=== PATIENT | male | born 1950 | race African-American/Black ===

== ENCOUNTER 2016-08-28 13:55 | Inpatient (IN) | payer MEDICARE ==
[~2016-08-28] VITALS: Ht 188 cm; Wt 96.3 kg
[2016-08-28] VITALS (16 sets, daily range): BP systolic 93–125; BP diastolic 47–70
[~2016-08-28 13:55] MED LIST: CALCIUM PO; DIGO0.12 PO; ECOT81TA2 PO; ELIQ2.5T PO; GABA300C3 PO; LEVA500T PO; METO50TA2 PO; NORCOTAB PO; RENATAB5 PO; TOPR50TA PO; VIT D PO
[2016-08-28] MEDS ORDERED: ONDANSETRON 4MG/2ML VIAL (J2405) IV PRN (16:30)
[2016-08-28 17:08] LABS: REASON FOR REVIEW ANEMIA / RBC MORPH
[2016-08-28 17:13] LABS: MEAN CORPUSCULAR HEMOGLOBIN 23.8 pg (27.0-33.0); WHITE BLOOD COUNT 12.8 K/mm3 (4.0-10.0)
[2016-08-28 17:14] LABS: MEAN CORPUSCULAR HGB CONC 28.7 g/dl (32.0-36.5); PLATELET COUNT, AUTOMATED 187 k/mm3 (150-450); RED CELL DISTRIBUTION WIDTH 21.2 % (11.5-14.5)
[2016-08-28 17:19] LABS: DIFF SLIDE NUMBER 296
[2016-08-28 17:24] LABS: RETIC HEMOGLOBIN CONTENT CHr 27.7 PG (24-36); RETICULOCYTE % ADVIA2120 3.61 % (0.5-1.5); RETICULOCYTE ABSOLUTE ADVIA212 74 x10(9)/L (17-77)
[2016-08-28 17:26] LABS: ERYTHROCYTE SEDIMENTATION RATE 125 mm/hr (0-20)
[2016-08-28 17:26] LABS: INR 1.87
[2016-08-28 17:27] LABS: ABG BASE EXCESS -2.8 (-2.0-2.0); ABG HCO3 21.3 MEQ/L (22.0-26.0); ABG PARTIAL PRESSURE CO2 32.8 mmHg (35.0-45.0); ABG PARTIAL PRESSURE O2 122.7 mmHg (75.0-100.0); ABG STANDARD HCO3 22.1 MEQ/L (22.0-26.0); ABG TOTAL CO2 22.3 MEQ/L (23.0-31.0)
[2016-08-28 17:28] LABS: ALBUMIN 2.2 GM/DL (3.2-5.2); ALBUMIN/GLOBULIN RATIO 0.67 (1.00-1.93); ALKALINE PHOSPHATASE 125 U/L (45-117); ALT/SGPT 202 U/L (12-78); ANION GAP 19 MEQ/L (8-16); AST/SGOT 363 U/L (15-37); BLOOD UREA NITROGEN 28 MG/DL (7-18); CALCIUM LEVEL 8.1 MG/DL (8.8-10.2); CARBON DIOXIDE LEVEL 23 MEQ/L (21-32); CHLORIDE LEVEL 97 MEQ/L (98-107); CREATININE FOR GFR 3.88 MG/DL (0.70-1.30); GLOMERULAR FILTRATION RATE 20.1 (>49); GLUCOSE, FASTING 107 MG/DL (80-110); MAGNESIUM LEVEL 2.2 MG/DL (1.8-2.4); PERCENT SATURATION 97.1 % (19.7-37.4); PHOSPHORUS LEVEL 4.2 MG/DL (2.5-4.9); SODIUM LEVEL 139 MEQ/L (136-145); TOTAL IRON BINDING CAPACITY 205 UG/DL (250-450); TOTAL PROTEIN 5.5 GM/DL (6.4-8.2)
[2016-08-28 17:41] LABS: BILIRUBIN,TOTAL 1.2 MG/DL (0.2-1.0)
[2016-08-28 17:46] LABS: FERRITIN 17496 NG/ML (26-388)
[2016-08-28 17:53] LABS: ANISOCYTOSIS 2+; BANDS 2 % (< 11); HYPOCHROMASIA 3+; NUCLEATED RED BLOOD CELL 1 % (0-0)
[2016-08-28 17:56] LABS: POLYCHROMASIA 1+
[2016-08-28 18:16] LABS: FOLATE > 24.0 NG/ML (>5.4); VITAMIN B12 LEVEL 1086 PG/ML (247-911)
--- NOTE | 2016-08-28 18:50 | REP ---
CHEST, ONE VIEW: COMPARISON: 05/22/2016 Since the last examination, a right-sided internal jugular central venous catheter has been placed, the tip of which is in the superior vena cava. There is cardiomegaly, status quo. There is a haziness throughout the pulmonary vascularity, status quo. There is pulmonary vascular redistribution and central pulmonary vascular engorgement, status quo. There are no new abnormal opacities on this portable exam. The technique utilized in obtaining the radiograph has magnified the cardiac silhouette and accentuated the interstitial markings. IMPRESSION: 1. Central venous catheter as described above. 2. Stable appearing chronic changes, consistent with edema. Signed by Pan Mcmahan DO 08/28/2016 07:18 P
[2016-08-28] MEDS: CEFTAROLINE FOSAMIL 200 MG in D5W 50 ML IV SCH (18:55)
--- NOTE | 2016-08-28 19:17 | HPE ---
DATE OF ADMISSION: 08/28/2016 PRINTER APPRENTICE: Dr. Jean-Baptiste PRIMARY CARE PROVIDER: Aylin Rea [employer] AGENT: Dr. Dela Cruz CHIEF COMPLAINT: Generalized weakness, anemia. HISTORY OF PRESENT ILLNESS: This is a 65-year-old male patient with underlying medical history of end-stage renal disease on hemodialysis Wednesday, Wednesday, Wednesday, chronic anemia, atrial fibrillation on Eliquis, cataract, hypertension, history of prostate cancer status post radiation 10 years ago, questionable congestive heart failure (CHF) history, with recent amputation of left great toe and wound that is nonhealing. The patient presented to hemodialysis today. After completion of hemodialysis with 1 liter of fluid removal, the patient does not look well from dialysis staff. Subsequently, the patient was sent to [facility]. Found to be anemic with a hemoglobin of 4.6 and lactic acid of 7. Triple-lumen central line was inserted at [facility]. The patient's transfusion was initiated, and the patient was transferred to [facility] intensive care unit (ICU). As per the patient, he reported over the past couple of weeks, he has been having dark stool but only 1-2 times a day. As per the patient, that has been normal for him. The patient baseline ambulating with a walker. Has been reporting progressively worsening weakness with mild dyspnea. Denies any chest pain, pressure, or discomfort. The patient did report that since his recent amputation of left great toe, his wound has not healed. Subsequently, he has also developed right heel ulcer that is nonhealing. The patient denies any fevers or chills. Denies any chest pain, pressure, or discomfort. Denies any nausea, vomiting, abdominal pain. PAST MEDICAL HISTORY: End-stage renal disease, on hemodialysis Wednesday, Wednesday, Wednesday. Chronic anemia. Atrial fibrillation, on anticoagulation. Cataract. Hypertension. Peripheral artery disease with nonhealing foot ulcers. History of prostate cancer, radiation 10 years ago. PAST SURGICAL HISTORY: AV fistula left arm. Cataract surgery. Left great toe amputation. SOCIAL HISTORY: The patient is a former smoker. Reported smoking 1/2 pack daily for 2-3 years in his life. The patient drinks beer on special occasions, very rarely, maybe once or twice a year. Denies any other illicit drug use. HOME MEDICATIONS: On: - [place] 5/325 tablets by mouth three times a day as needed - Eliquis 2.5 mg by mouth twice a day - aspirin 81 mg by mouth daily - digoxin 0.125 mg by mouth Wednesday, Wednesday, Wednesday after dialysis - gabapentin 300 mg by mouth nightly - metoprolol succinate 15 mg by mouth daily REVIEW OF SYSTEMS: Reported generalized weakness, lightheadedness. Denies any hearing change. Reported blurry vision from cataracts. Denies any nausea, vomiting. Denies any shortness of breath. Denies any chest pain, pressure, or discomfort. Denies any abdominal pain. Does report dark stool. Denies any diarrhea, constipation. Reported nonhealing wounds on bilateral lower extremities. Denies any depression or suicide ideation. PHYSICAL EXAMINATION: VITAL SIGNS: Temperature 97.7, pulse 61, respiration 20, blood pressure 96/47, pulse oximetry 100% on 2 liter nasal cannula. GENERAL: The patient alert and oriented times three. In no acute distress. Speech is slow, slightly stumbled, but is coherent. As per family, this is baseline for the patient. HEENT: Normocephalic, atraumatic. Dry mucous membranes. PULMONARY: Bilaterally bibasilar mild crackles. CARDIAC: Regular rate and rhythm. Normal S1, S2. ABDOMEN: Soft, nontender, nondistended. EXTREMITIES: Left lower extremity nonhealing surgical wound. No exudate or drainage. Right heel ulcers, no purulent drainage. Dressing clean, dry, and intact. dp/pt pulses threading bilateral. No significant edema bilateral lower extremities. LABORATORY: WBC 12.8, hemoglobin and hematocrit 4.8/16.8, platelets 187. Chemistry: Sodium 139, potassium 4, chloride 97, BUN 28, creatinine 3.88, lactic acid 13.1. Cardiac enzyme negative times one. ASSESSMENT AND PLAN: This is a 65-year-old male patient with underlying medical history of end-stage renal disease, peripheral artery disease, nonhealing bilateral lower extremity foot lesions, chronic anemia, atrial fibrillation on anticoagulation, cataract, hypertension, prostate cancer, admitted with severe anemia with lactic acidosis and borderline blood pressure. PROBLEMS: 1. Sepsis, possible secondary to lower extremity ulcers. C-reactive protein elevated. Consulted Dr. Dela Cruz for further wound care. Will empirically start Teflaro. Followup blood cultures. 2. Severe anemia. Fecal occult positive at [facility]. Transfused 1/2 unit, unimproved. Will transfuse 2 more units and followup hemoglobin and hematocrit every 4 hours. Holding blood pressure medications. Clear-liquid diet. Dr. Heath from gastroenterology has been consulted. Anemia workup has been sent. Protonix intravenous (IV) twice a day. If bleeding worsens, will consider giving desmopressin acetate (DDAVP). 3. End-stage renal disease. Consulted Dr. Jean-Baptiste. The patient might need additional dialysis session tomorrow, given the patient might get fluid overloaded. Dr. Jean-Baptiste is agreeable to offer additional sessions of dialysis tomorrow if necessary. In the meantime, if the patient becomes dyspneic tonight , will recommend continuous positive airway pressure (CPAP). 4. Hypertension. Holding blood pressure medication, given the patient is severely anemic. Will restart as needed. 5. Atrial fibrillation with holding anticoagulation, given the possibility of fecal occult positive gastrointestinal (GI) bleed. Withholding aspirin, as well. Holding beta blockers, given the borderline blood pressure with severe lactic acidosis. Will restart as needed. Telemetry monitoring in the meantime. The patient is currently tachycardic. 6. Severe anemia with fecal occult positive, lactic acidosis. Transfused 1/2 unit en route and will give 2 additional units. Followup hemoglobin and hematocrit. Followup blood pressures. Followup lactic acid. Monitor hemoglobin and hematocrit every [address] Heath has been consulted. Protonix twice a day. Will give DDAVP if GI bleed becomes more pronounced; but as of right now, the patient is not having lots of bowel movements, if anything once a day, as per the patient, with some melena. Will continue to follow. Transfuse as needed to keep hemoglobin above 8. 7. Sepsis. The patient hypotensive with lactic acidosis and leukocytosis, likely systemic inflammatory response syndrome (SIRS), lower extremity wound, left lower extremity. The case discussed with Dr. Dela Cruz. The patient will need a left lower extremity below-knee amputation. Dr. Burns from surgery has been consulted. Also, right heel ulcer. Wound care, as per Dr. Dela Cruz. The patient currently on Teflaro. Will followup lactic acid, C-reactive protein, and cultures. 8. Chronic anemia. Please refer to above. 9. History of prostate cancer. Outpatient followup. 10. Deep venous thrombosis (DVT) prophylaxis. Cannot give pharmacological agent, given possibility of GI bleed. Right-sided sequential compression device if tolerates. DISPOSITION: Multiple comorbidities. Poor long-term prognosis. The patient remains critical with severe lactic acidosis and severe anemia. Will attempt to fully resuscitate the patient overnight. MTDD
[2016-08-28] MEDS: SENOKOT S TAB PO SCH (21:00)
[2016-08-28] MEDS: PANTOPRAZOLE 40MG INJ (PROTONIX) (C9113) IV SCH (21:48)
[2016-08-29] VITALS (39 sets, daily range): BP systolic 101–136; BP diastolic 49–63
[2016-08-29] MEDS ORDERED: diphenhydrAMINE INJ 50MG/ML VIAL (J1200) As Ordered ONE (02:11)
[2016-08-29] MEDS ORDERED: diphenhydrAMINE INJ 50MG/ML VIAL (J1200) IV ONE (02:15)
[2016-08-29 05:35] LABS: ABG HCO3 31.9 MEQ/L (22.0-26.0); ABG PARTIAL PRESSURE CO2 41.9 mmHg (35.0-45.0); ABG PARTIAL PRESSURE O2 118.8 mmHg (75.0-100.0); ABG STANDARD HCO3 31.8 MEQ/L (22.0-26.0); ABG TOTAL CO2 33.2 MEQ/L (23.0-31.0); ABG pH (ARTERIAL) 7.499 UNITS (7.350-7.450)
[2016-08-29] MEDS: CEFTAROLINE FOSAMIL 200 MG in D5W 50 ML IV SCH ×2 (06:04→18:24)
[2016-08-29 06:39] LABS: MEAN CORPUSCULAR VOLUME 81.4 fl (80.0-96.0); RED CELL DISTRIBUTION WIDTH 20.4 % (11.5-14.5); WHITE BLOOD COUNT 11.4 K/mm3 (4.0-10.0)
[2016-08-29 06:50] LABS: INR 1.68
[2016-08-29 06:55] LABS: ALBUMIN 2.3 GM/DL (3.2-5.2); ALBUMIN/GLOBULIN RATIO 0.72 (1.00-1.93); BILIRUBIN,TOTAL 1.5 MG/DL (0.2-1.0); CALCIUM LEVEL 7.5 MG/DL (8.8-10.2); CREATININE FOR GFR 4.5 MG/DL (0.70-1.30); MAGNESIUM LEVEL 2.2 MG/DL (1.8-2.4); POTASSIUM SERUM 3.7 MEQ/L (3.5-5.1); TOTAL PROTEIN 5.5 GM/DL (6.4-8.2)
[2016-08-29 07:05] LABS: DIGOXIN LEVEL 1.8 NG/ML (0.5-2.0)
[2016-08-29] MEDS ORDERED: SODIUM CHLORIDE 0.9% INJ 10 ML SYR IV PRN (07:15)
[2016-08-29] MEDS ORDERED: SLF 3 ML SYR IV PRN (08:15)
[2016-08-29] MEDS: SENOKOT S TAB PO SCH ×2 (08:22→21:00)
[2016-08-29] MEDS: PANTOPRAZOLE 40MG INJ (PROTONIX) (C9113) IV SCH ×2 (08:22→21:55)
[2016-08-29] MEDS: METOPROLOL TART 25 MG TABLET PO SCH ×3 (08:23→21:59)
--- NOTE | 2016-08-29 10:52 | IPN ---
DATE OF EXAMINATION: 08/29/2016 OBJECTIVE: This morning, the patient tells me he is feeling so much better. He tells me that he felt very tired and weak for the last several days; and then yesterday at dialysis, his blood pressure was very low to the point that he was passing out and feeling faint. At the present time, he has no further symptoms and feels so much better. OBJECTIVE: VITAL SIGNS: Temperature 98.1, pulse 64, respiratory rate 18, blood pressure (BP) 114/56, oxygen (O2) saturation 100% on 2 liters nasal cannula. In general, he is a very pleasant -[place] male, lying in bed at a 60-degree angle. He is accompanied by his . The patient did not appear to be in any acute distress whatsoever. HEENT: Cranial nerves II-XII are grossly intact. He has moist mucous membranes. No elevation in central venous pressure. CARDIOVASCULAR EXAMINATION: S1, S2, regular. RESPIRATORY EXAMINATION: Is clear. ABDOMINAL EXAMINATION: Is benign. EXTREMITIES: His left lower extremity dressing is clean, dry, and intact. LABORATORY STUDIES: WBC 11.4 down from 12.8, hemoglobin 7.1 up from 4.8 at the time of admission after 4 units of blood, hematocrit 22.1, platelet count 146. Chemistry panel: Sodium 138, potassium 3.7, chloride 98, bicarbonate 32, BUN 37, creatinine 4.5, lactic acid this morning is 1.4 down from 13.1 yesterday, total bilirubin is slightly elevated at 1.5 up from 1.2 yesterday, AST is 1793 up from 363 yesterday, ALT is also elevated at 839 up from 202 yesterday. Cardiac enzymes, the patient has three sets of troponins, which are approximately 0.11 and 0.12 and 0.16. CRP is 10.6 this morning. B-12 and folate levels are within normal limits. He has an elevated ESR at 125. INR is 1.6 down from 1.8. IMAGING: The patient had a chest x-ray that revealed central venous catheter. ASSESSMENT AND PLAN: This is a 65-year-old man transferred from outside hospital for gastrointestinal (GI) bleed and lactic acidosis. PROBLEMS: 1. Gastrointestinal bleed. Given the patient's history of slowly progressive worsening fatigue and dark stools, I suspect that the patient has had fairly chronic GI losses. Fecal occult was positive at [facility]. He did have significant anemia. The patient received 4 units of packed red blood cells. I will give him additional [address] Heath from gastroenterology has been consulted. I anticipate this morning that he will be seeing the patient today. The patient placed on Protonix intravenous (IV) twice a day. He has had a positive response to blood. 2. Hypotension during hemodialysis. I suspect that the patient's hemoglobin is more chronic, as he was able to tolerate such a low hemoglobin. During dialysis, there was attempt to remove fluid. I suspect hemoglobin of 4.8 with fluid removal combination resulted in significant hypotension, as the patient reports. I suspect that this is why he had significant lactic acidosis, which quickly resolved with fluid resuscitation and packed red blood cells. I also suspect that the patient's elevated liver function test is secondary to shock liver (from hypotension). 3. End-stage renal disease (from hypotension). The patient being transfused. Will simply monitor. 4. Peripheral vascular disease and left lower extremity wound. The patient has been seen by Dr. Dela Cruz, who suggested the patient undergo left below-knee amputation (BKA). At the present time, I would deal more urgently with his acute blood loss anemia. Once this has been resolved and addressed, subsequently following this, we could think about below-knee amputation procedure. The patient is on ceftaroline. 5. Atrial fibrillation. The patient's Eliquis has been held secondary to likely GI losses. The patient is rate controlled on metoprolol 25 twice a day. He normally receives digoxin 0.125 mg after hemodialysis. His anticoagulation is being held, as noted. 6. Hypertension. Given that the patient was hypotensive and anemic, we are actually holding his antihypertensives. 7. Systemic inflammatory response syndrome (SIRS). The patient does meet SIRS criteria. I feel this is more likely secondary to GI bleed. He is on ceftaroline at this time, but again I do not feel that this septic foot is the predominant presumptive problem. 8. Deep venous thrombosis (DVT) prophylaxis. Sequentials and thromboembolic deterrents (TEDs). 9. End-stage renal disease. Dr. Jean-Baptiste of nephrology has been consulted. He, at this time, is not exhibiting any signs or symptoms of pulmonary edema; however, he has received a significant amount of blood and may require additional dialysis. Dr. Jean-Baptiste's help is greatly appreciated. The patient's status remains quite severely ill. Will continue to monitor him closely.
--- NOTE | 2016-08-29 12:17 | CR ---
DATE OF CONSULTATION: 08/28/2016 REASON FOR CONSULTATION: Lower extremity necrosis. Nicho Fernandez is a 65-year-old male, who is known to me, who presented as a transfer from [facility] emergency room to [facility] with sepsis and anemia. He has chronic left ulceration to his left foot. This initially started as a necrotic toe that I was seen in April this year. He had wet gangrene at the time so toe was amputated urgently. He was then referred to vascular surgery in [place] and had an angio with some ballooning performed. Unfortunately, the left toe amputation site did not heal and progressed to further necrosis. At that time, he was recommended for below knee amputation by the vascular surgeons in [place] as well as myself. He however, wanted to seek alternative treatments and was not willing to have that amputation performed at that time. He was subsequently referred to the wound care center in [place] where he had been undergoing local wound care. He had started hyperbaric oxygen treatment this week. However, after two dives, he had ear pain and drainage. The last time I saw him was approximately 1 month ago. Since then, it appears there has been further gangrenous changes to his left foot. During this time, there has also been a new ulceration to his right heel. Past medical history is significant for hypertension, for end-stage renal disease, on dialysis, peripheral vascular disease. Past surgical history to lower extremity significant for left hallux amputation. SOCIAL HISTORY: Patient does continue to smoke despite being advised not to. LABORATORIES ON ADMISSION: White blood cell count is 12.8. Hemoglobin is 4.8. Creatinine is 3.88. Lactic acid is 13.1. C-reactive protein is 9.97. LOWER EXTREMITY EXAMINATION: There is amputation site of left hallux with exposed metatarsal head. There is dried gangrene now noted to the toes 2, 3 and 4 at the site extending proximally to the dorsal left foot. There is edema noted to the left lower extremity with some mal odor. There is nonpalpable pulses to both feet. Right foot: There is noted to be a pressure ulceration to the right heel with some fibrogranular tissue to the site. ASSESSMENT: A 65-year-old male with lower extremity ulcerations, peripheral vascular disease (PVD), cellulitis. PLAN: Treatment choice is discussed with patient. At this point, I do not feel that there is any alternative treatment ultimately for his left leg other than a below knee amputation, possibly above knee if required by his blood supply. I do not recommend any foot amputations of itself. Would not plan either of these until patient's condition is improved given his significant anemia and lactic acid. At this time, would agree with plan of antibiotics and local wound care to the right heel. Recommend offloading boot. Patient's prognosis is poor given multiple comorbidities.
[2016-08-29] MEDS ORDERED: KCL 20MEQ IN 100ML SWI (KRUN) 20 MEQ in APPROPRIATE DILUENT 1 EA IV ONE ×2 (14:00)
[2016-08-29] MEDS: SLF 3 ML SYR IV SCH ×2 (14:06→21:55)
[2016-08-29] MEDS: SODIUM CHLORIDE 0.9% INJ 10 ML SYR IV SCH ×2 (14:07→21:55)
[2016-08-29 15:04] LABS: MAGNESIUM LEVEL 2.1 MG/DL (1.8-2.4)
--- NOTE | 2016-08-29 16:37 | CR ---
DATE OF CONSULTATION: 08/29/2016 STATUS OF PATIENT: Inpatient. REQUESTING PHYSICIAN: Hospitalist service, Dr. Fajardo. REASON FOR CONSULTATION: Profound anemia, melena. HISTORY OF PRESENT ILLNESS: Mr. Fernandez is a 65-year-old gentleman with a history of chronic anemia due to renal disease with a hemoglobin in the 8-9 range. He has a long history of vascular complications from diabetes, including a gangrenous foot for which he is being treated with hyperbaric oxygen. He has also been evaluated by podiatry. The patient presents with progressive weakness and fatigue during hemodialysis. He was found to have a hemoglobin of 4.5. The patient does note some black stools every once in a while. However, no devendra rectal bleeding. No hematemesis. He does not have any abdominal pain, nausea or vomiting. The patient was transfused and stabilized with packed red blood cells (RBCs). Due to intermittent hypotension, he is being managed in the intensive care unit (ICU); however, I do see that his vital signs have markedly improved. The patient is taking Eliquis and the last dose was on 08/27. PAST MEDICAL HISTORY: 1. End-stage renal disease on hemodialysis. 2. Peripheral vascular disease with nonhealing foot ulcers. 3. Prostate cancer with radiation 10 years ago. 4. Atrial fibrillation. PAST SURGICAL HISTORY: Arteriovenous (AV) fistula, cataract surgery, and left toe amputation. SOCIAL HISTORY: Negative for tobacco. Negative for alcohol. MEDICATIONS AT HOME: - Eliquis, last dose 08/27 - aspirin - digoxin - gabapentin - metoprolol FAMILY HISTORY: Negative for colorectal carcinoma, inflammatory bowel disease. REVIEW OF SYSTEMS: GENERAL: Negative for night sweats, fevers or chills. Positive for generalized weakness and lightheadedness. PULMONARY: Negative for hemoptysis or pleuritic-type chest pain. CARDIAC: Negative for orthopnea or dyspnea on exertion. GASTROINTESTINAL (GI): As per history of present illness (HPI). GENITOURINARY: Negative for hematuria, dysuria. PHYSICAL EXAMINATION: VITAL SIGNS: Temperature 97.7, pulse is 86 and regular, respirations of 20, blood pressure on presentation was 96/47, but presently is 118/88. GENERAL: He is awake, alert and oriented times three in no acute distress. He is nontoxic in appearance at present. HEENT: Notable for mucosal pallor. NECK: Supple. No lymphadenopathy or thyromegaly. CHEST: Clear bilaterally. HEART: Regular rate, rhythm, S1, S2. No murmurs. ABDOMEN: Obese, soft, nontender. Good bowel sounds. EXTREMITIES: Both feet have dressings present. I did not remove. Do not appreciate any significant pedal edema. IMPRESSION: 1. Severe anemia. 2. Melena. 3. Abnormal liver enzymes. 4. Sepsis. 5. Eliquis, last dose 08/27. RECOMMENDATIONS: Despite the lack of overt GI symptoms and the lack of devendra hemorrhage from the GI tract, he did have occasional "black stool" and he was hypotensive, and certainly we should go ahead and proceed with endoscopic evaluation. His hemodynamics have been stabilized overnight with packed RBCs and IV fluids. He is no longer hypotensive; therefore, we will go ahead this morning and proceed with urgent endoscopy to delineate source for bleeding. I have discussed the slightly positive troponins with cardiology, Dr. Gale, who believes that the troponins are related to his chronic renal disease and hypotension episodes and should not interfere with or need to evaluate his acute on chronic anemia and potential GI bleeding. MARIA ALEJANDRA
--- NOTE | 2016-08-29 18:00 | ROOR ---
Patient Name: Nicho Fernandez Procedure Date: 08/29/2016 4:48 PM Date of : 1950 Age: 65 Gender: Male Note Status: Finalized Procedure: Upper GI endoscopy Indications: Acute post hemorrhagic anemia Providers: Oleksandr HEATH MD Referring MD: 2. Inpatient 2. Inpatient Requesting Provider: Medicines: Monitored Anesthesia Care Complications: No immediate complications. Procedure: Pre-Anesthesia Assessment: - The heart rate, respiratory rate, oxygen saturations, blood pressure, adequacy of pulmonary ventilation, and response to care were monitored throughout the procedure. The Endoscope was introduced through the mouth, and advanced to the second part of duodenum. The upper GI endoscopy was accomplished without difficulty. The patient tolerated the procedure well. Findings: The examined esophagus was normal. A single 8 mm semi-sessile polyp with no bleeding and stigmata of recent bleeding was found in the prepyloric region of the stomach. This was biopsied with a cold forceps for histology. The exam of the stomach was otherwise normal. The examined duodenum was normal. Impression: - Normal esophagus. - A single 8 mm erythematous erythematous gastric polyp. Not removed, as eliquis on board, This was only biopsied. - Normal examined duodenum. Recommendation: - I am a bit dubious of the gastric polyp as sole cause for his melena/anemia. I think it should be removed, but he will also need colonoscopy to r/o other cause for GIB. - (last eliquis dose 08/27. will wait another 2 days before gastric polypectomy/colonoscopy)--plan for repeat EGD/and colonoscopy on 08/31). Oleksandr Heath MD Oleksandr HEATH MD 08/29/2016 5:59:52 PM This report has been signed electronically. Number of Addenda: 0 Note Initiated On: 08/29/2016 4:48 PM Estimated Blood Loss: Estimated blood loss: none.
[2016-08-29] MEDS ORDERED: MOM 30ML SUSPENSION UDC PO ONE (19:00)
--- NOTE | 2016-08-29 20:02 | ECGEPIP ---
Stationary ECG Study [facility] Test Date: 2016-08-29 Pat Name: CATHI SEBASTIAN Department: Room: [place] [address] Gender: M Client Account Representative: ESTEPHANIA : 1950 Requested By: YARA WILD Order Number: [id number] Reading MD: Dino Gale Measurements Intervals [place] Rate: 59 P: -83 VT: 125 QRS: -48 QRSD: 133 T: 144 QT: 481 QTc: 478 Interpretive Statements Ectopic atrial bradyarrhythmia. Marked left axis deviation - left anterior hemiblock. Incomplete LBBB. Prominent inferolateral ST/T-wave abnormalities Rhythm converted from atrial fibrillation 05/22/16 Electronically Signed On 08-29-2016 20:01:40 EDT by Dino Gale
--- NOTE | 2016-08-29 20:27 | REP ---
ABDOMINAL ULTRASOUND: Reason: Acute hepatitis. There are no priors for comparison. The technologist has made note on the worksheet that the examination is markedly limited due to the patient's inability to sustain respirations and a large amount of intestinal gas. In addition, the examination was done portable within the intensive care unit. This markedly limited complete abdominal ultrasound examination shows a micronodular surface to the hepatic parenchyma and a large gallbladder with a thickened wall, but there is no pericholecystic edema or evidence of biliary dilatation. The common bile duct measures between 4 and 5 mm. The pancreas was not visualized. Splenomegaly is present with a volumetric index calculation of 1385. The maximal splenic dimension is 15 cm. Very limited evaluation of each kidney shows them to have very poor cortical medullary differentiation and a markedly thinned renal cortex, but no evidence of hydronephrosis. Accurate renal measurements could not be obtained by this exam. No free fluid is present within the abdomen. IMPRESSION: 1. Evidence of cirrhosis of the liver. 2. Enlarged gallbladder with an abnormally thickened wall, but no sonographic evidence of pericholecystic edema and the technologist did not indicate a positive sonographic Ball's sign. Chronic acalculous cholecystitis should be evaluated for clinically. 3. Splenomegaly. 4. Chronic bilateral renal changes. Consider noncontrast enhanced CT for further evaluation if clinically relevant. HEPATIC DOPPLER EXAM: There is normal hepatopedal flow in the portal veins and there is normal hepatofugal flow in the hepatic veins. No elevated velocities are present. The examination is markedly limited to the patient's inability to sustain respirations for the exam which is particularly important when obtaining venous velocities and waveform analysis. In addition, the examination was obtained portably. IMPRESSION: Markedly limited exam. Signed by Pan Mcmahan DO 08/30/2016 02:04 P
[2016-08-30] VITALS (19 sets, daily range): BP systolic 100–119; BP diastolic 49–67
[2016-08-30] MEDS: CEFTAROLINE FOSAMIL 200 MG in D5W 50 ML IV SCH ×2 (06:11→18:40)
[2016-08-30] MEDS: SLF 3 ML SYR IV SCH ×3 (06:11→22:00)
[2016-08-30] MEDS: SODIUM CHLORIDE 0.9% INJ 10 ML SYR IV SCH ×3 (06:12→20:45)
[2016-08-30 06:23] LABS: INR 1.38
[2016-08-30 06:26] LABS: MEAN CORPUSCULAR HGB CONC 31.7 g/dl (32.0-36.5); MEAN CORPUSCULAR VOLUME 85.1 fl (80.0-96.0); RED CELL DISTRIBUTION WIDTH 19.7 % (11.5-14.5); WHITE BLOOD COUNT 9.4 K/mm3 (4.0-10.0)
[2016-08-30 06:57] LABS: ALBUMIN 2.3 GM/DL (3.2-5.2); ALBUMIN/GLOBULIN RATIO 0.68 (1.00-1.93); BILIRUBIN,TOTAL 1.1 MG/DL (0.2-1.0); CALCIUM LEVEL 7.9 MG/DL (8.8-10.2); CREATININE FOR GFR 6.36 MG/DL (0.70-1.30); DIGOXIN LEVEL 1.7 NG/ML (0.5-2.0); GLOMERULAR FILTRATION RATE 11.4 (>49); MAGNESIUM LEVEL 2.4 MG/DL (1.8-2.4); POTASSIUM SERUM 3.5 MEQ/L (3.5-5.1); TOTAL PROTEIN 5.7 GM/DL (6.4-8.2)
[2016-08-30] MEDS ORDERED: POTASSIUM CHLORIDE 10 MEQ SR TABLET PO ONE (08:30)
[2016-08-30] MEDS: SENOKOT S TAB PO SCH ×2 (09:00→20:44)
[2016-08-30] MEDS: PANTOPRAZOLE 20 MG TAB PO SCH (09:00)
--- NOTE | 2016-08-30 09:03 | IPN ---
DATE: 08/30/2016 SUBJECTIVE: Today the patient reports that he is feeling well. He has a little bit of cough following his endoscopy, but otherwise has no specific complaints. No chest pain, shortness of breath. No fevers, chills, lightheadedness, or feeling like he is going to pass out. No diarrhea or dark-colored stools. OBJECTIVE: VITAL SIGNS: Temperature 97.4, pulse 53, respiratory rate 20, blood pressure 108/53, oxygen saturation 93% on room air. GENERAL: He is a very pleasant, -Martiniquais male laying in bed on his left side. He is accompanied by his . The patient does not appear to be in any acute distress. HEENT: He has a central venous catheter in his right internal jugular (IJ). He has moist mucous membranes. Difficult to assess for any elevation of central venous pressure. CARDIOVASCULAR: S1, S2. He is not tachycardic. RESPIRATORY EXAM: Fairly clear. ABDOMEN: Benign. EXTREMITIES: He has a fistula in his left arm; failed fistula in the right arm. No clubbing, cyanosis. Left lower extremity bandage is clean, dry, and intact. LABORATORY STUDIES: WBC 9.4, hemoglobin 8.5, stable, hematocrit 26.8, platelet count 140. Chemistry panel: Sodium 139, potassium 3.5, repleted with 20, chloride 99, bicarbonate 31, BUN 47, creatinine 6.3. Magnesium level is 2.4. AST is down to 885, down from 1793 yesterday. ALT is down to 805, down from 839. Cardiac enzymes are 0.16 today. CRP is 10, stable from yesterday essentially. Folate and B12 levels are essentially unremarkable. INR today is 1.3, down from 1.6. Microbiology is thus far negative. Patient received a total of six units of PRBCs during this stay. Ultrasound of the liver did reveal evidence of cirrhosis of the liver, but normal hepatopetal flow in the portal veins and normal hepatofugal flow in the hepatic veins. ASSESSMENT AND PLAN: Patient is a 65-year-old man transferred from outside hospital for gastrointestinal (GI) bleed and lactic acidosis. 1. GI bleed. Patient did have an upper endoscopy yesterday which revealed a gastric polyp which was biopsied, but not removed secondary to the patient's recent anticoagulation. Dr. Heath's help was greatly appreciated. The plan is to proceed with colonoscopy tomorrow as well as repeat endoscopy for polyp removal. At this time, I will decrease his proton pump inhibitor (PPI) from 40 IV twice a day to 20 daily as GI prophylaxis. His hemoglobin and hematocrit has responded appropriately to blood and he is stable. He has not had any further tarry stools. I suspect that this bleeding may have spontaneously resolved. 2. Hypertension during hemodialysis. I suspect that the patient's low hemoglobin and fluid removed during hemodialysis combined to perform a brief period of hypotension that the patient was noted to have at dialysis. The patient did have a significant lactic acidosis which resolved with fluid resuscitation and blood as well as the patient appears to be having some shocked liver which also appears to be resolving. 3. End-stage renal disease. Dr. Jean-Baptiste is following the patient. His help is greatly appreciated. He is to continue with regularly scheduled hemodialysis Wednesday, Wednesday, and Wednesday. He did not appear to have any acute indication for hemodialysis at this time. 4. Eleven beats of nonsustained ventricular tachycardia. I have ordered an echocardiogram to evaluate the patient's ejection fraction. We will also optimize the potassium and magnesium. He is on a beta ross. I will continue to monitor him in the progressive care unit. I feel as though he can be downgraded from the medical intensive care unit status. 5. Atrial fibrillation. His Eliquis has been held secondary to likely GI loss. The patient also informed me that he has had suspected bleeding in his right ear as well while being on Eliquis. Patient is rate controlled with metoprolol, which is being held for blood pressure parameters. He also receives digoxin after hemodialysis days. Heart rate is controlled. 6. Hypertension. He is actually hypotension and so his antihypertensives are being held. 7. Systemic inflammatory response syndrome, likely secondary to GI bleed with elevated lactic acid. He does technically meet criteria for severe sepsis secondary to left lower extremity wound. He is currently on ceftaroline. Dr. Dela Cruz's help is greatly appreciated. He has been recommended for potential below the knee amputation (BKA) versus above the knee amputation (AKA) once his acute bleed has resolved. 8. Deep vein thrombosis (DVT) prophylaxis. Sequential and thromboembolic devices (TEDS). 9. Gastrointestinal (GI) prophylaxis. Protonix. We will continue to follow this patient closely. His clinical status does appear to be improving.
[2016-08-30] MEDS: METOPROLOL TART 25 MG TABLET PO SCH ×2 (09:33→20:41)
--- NOTE | 2016-08-30 10:07 | CR ---
DATE OF CONSULTATION: 08/29/2016 Nephrology consultation for Autumn Fajardo MD. Reason for consultation is severe anemia and end-stage renal disease. HISTORY OF PRESENT ILLNESS: Mr. Fernandez is a 65-year-old gentleman with multiple chronic medical problems including a history of diabetes, peripheral vascular disease, hypertension, atrial fibrillation and end-stage renal disease. He underwent amputation of his left big toe a few months ago; however, wound has not healed. He continues to have infection and has been treated with antibiotics multiple times by his marine architect. He is dialyzed on Wednesday, Wednesday and Wednesday schedule in [place] dialysis facility. He underwent hemodialysis yesterday and after dialysis he was very weak and confused. He was sent to the emergency room at [facility] where his labs showed a hemoglobin of only 4.4. Patient was transferred to [facility] due to need for inpatient dialysis and he is admitted to intensive care unit. PAST MEDICAL AND SURGICAL HISTORY: Significant for: 1. History of diabetes. 2. Atrial fibrillation. 3. Hypertension. 4. Peripheral vascular disease. 5. History of hyperlipidemia. 6. Severe anemia. 7. End-stage renal disease. 8. History of prostate cancer, status post radiation therapy. Past surgical history is significant for AV fistula in left arm, cataract surgery and left great toe amputation. MEDICATIONS: His home medications include: - Coventry 1 tablet three times a day for pain - Eliquis 2.5 mg twice a day - aspirin 81 mg daily - digoxin 0.125 mg three times a week - gabapentin 300 mg at bedtime - Levaquin 500 mg daily - metoprolol XL 50 mg daily - Meggan-Keely 1 tablet daily - calcium with vitamin D 1 tablet daily ALLERGIES: The patient has allergy to PENICILLIN. PERSONAL AND SOCIAL HISTORY: Patient is and lives with his . He does not smoke or drink. FAMILY HISTORY: There is no family history for kidney disease or premature coronary artery disease. REVIEW OF SYSTEMS: Patient is a poor historian. His is present in the room. Apparently, patient had some rectal bleeding even prior to this admission. However, he never reported it to dialysis staff or his physician. He denies any fever or chills. There is no history of weight loss. Ears, nose and throat are unremarkable. Cardiovascular system is negative for chest pain. He does feel short of breath. Respiratory system is negative for cough or hemoptysis. Gastrointestinal (GI) system is significant for rectal bleeding. There is no history of abdominal pain or black colored stools. He denies any vomiting or nausea. Genitourinary () system is negative for dysuria or hematuria. Musculoskeletal system is significant for left foot osteomyelitis following amputation of his left big toe. Psychosocial system is negative for depression or anxiety. Neurological system is negative for seizures or strokes. Hematology system is significant for chronic anticoagulation. Other systems are reviewed and are unremarkable. PHYSICAL EXAM: Patient is awake and alert and at his baseline mentation. Temperature 97.2 degrees Fahrenheit, heart rate 60 per minute and respiratory rate 18 per minute. Blood pressure 118/58 mmHg and oxygen saturation 100% on 2 liters oxygen. Patient has a central line in place and is receiving a blood transfusion at the time of my visit. His neck veins are mildly distended. There is no thyroid enlargement and no abnormal cervical lymph nodes. Ears, nose and throat are unremarkable. Heart exam reveals irregular rhythm. There is no pericardial friction rub. Lungs have good bilateral air entry. There is no wheezing or rales. Abdomen is soft and nontender. Bowel sounds are normal and there is no palpable organomegaly. Extremities have no cyanosis or clubbing. Skin has no rash or ulcers. Left arm AV fistula is patent. Neurologically, he has no focal deficit. Left foot is wrapped in dressing. LABORATORY DATA: WBC count 12.8, hemoglobin 4.8 and hematocrit 16.8. Platelets 187. Sodium 138 and potassium 3.7. BUN 37 and creatinine 4.5. A lactic acid level was 6.1 and calcium 7.5. Troponin 0.12, 0.16 and 0.17 respectively. AST is 1793 and ALT 839. PROBLEMS: 1. Acute blood loss anemia. Patient has rectal bleeding with acute blood loss anemia. He has so far received 5 units of packed RBCs. His hemoglobin and hematocrit need to be checked every few hours. A colonoscopy is indicated. 2. Left foot osteomyelitis in the setting of peripheral vascular disease. Patient is followed by Dr. Dela Cruz, who has recommended left [id number] amputation. IV antibiotics are being administered. 3. End-stage renal disease. Patient was dialyzed yesterday. At present, his volume status is still reasonable and electrolytes are within normal range. There is no emergent indication for dialysis today. He will be monitored closely on daily basis. We will schedule him for dialysis on Wednesday; however, he can be dialyzed sooner if needed. I thank you for involving me in the care of Mr. Fernandez. I will follow him along with you.
--- NOTE | 2016-08-30 14:34 | IPN ---
DATE: 08/30/2016 The patient is seen and examined at bedside. He states he is feeling a little bit better this morning. He denies overnight complaints. VITAL SIGNS: This morning, afebrile overnight. Blood pressure is 117/57. LABORATORY DATA: Reviewed. Hemoglobin is improved to 8.5 this morning. PHYSICAL EXAMINATION: Lower extremity examination, left foot deferred. Right heel shows wound with some fibrous tissue to the right plantar heel. No erythema. No foul odor. ASSESSMENT: A 65-year-old male with pressure ulcer, stage III, right heel and gangrene to left foot and leg with peripheral vascular disease, likely cellulitis. PLAN: Continue empiric antibiotics at this time. The patient is to have general surgery consultation for possible below-knee amputation once stabilized. He does have plan for endoscopy to evaluate for bleeding early this week. Wound care, continue Betadine dressing daily to left foot with gauze, right foot continue antibiotic ointment with offloading heel foam boot, change daily.
--- NOTE | 2016-08-30 16:58 | IPN ---
DATE: 08/30/2016 Mr. Fernandez is seen this morning on his bedside in intensive care unit. He was admitted with rectal bleeding and severe anemia. He has received a total of 6 units of packed RBCs so far. Patient denies any dyspnea or chest pain. There is no nausea or vomiting. He reports that he did have a bowel movement this morning and there was no visible blood. On physical exam, patient is awake and alert and at his baseline mentation. Temperature 98 degrees Fahrenheit, heart rate 64 per minute and respiratory rate 20 per minute. Blood pressure 112/54 mmHg and oxygen saturation 94% on room air. He has a central line in right internal jugular vein. There is no oral thrush or ulcers and mucous membranes are moist and healthy. Pupils are equal and reactive to light and sclera is anicteric. Ears, nose and throat are unremarkable. Heart exam is regular with systolic murmur grade 2/6. Lungs have few basilar crackles. Abdomen soft and nontender. Bowel sounds are normal and there is no palpable organomegaly. Extremities have no cyanosis or clubbing. Left foot is wrapped in dressing. Left arm AV fistula is patent. Today's labs show hemoglobin 8.5 and hematocrit 26.8. Platelets are 140 and WBC count 9.4. Sodium 139 and potassium 3.5. BUN 47 and creatinine 6.36. AST is down to 885, ALT 805 and alkaline phosphatase 122. C-reactive protein is 10.3. PROBLEMS: 1. Severe anemia most likely related to lower gastrointestinal (GI) bleed. Anemia has improved with 6 units of packed RBCs and his hematocrit has been stable since yesterday. We will continue to monitor closely. He is not on any anticoagulation at present. 2. Patient has already had upper endoscopy, which did not show any evidence of acute bleed. Colonoscopy is needed at present. 3. End-stage renal disease. Patient is regularly dialyzed on Wednesday, Wednesday and Wednesday schedule. His dialysis is due tomorrow. 4. Left foot gangrene and osteomyelitis. Dr. Dela Cruz has felt that the patient is going to require [id number] amputation or probably [id number] amputation due to his severe vascular disease. At present, he is not medically stable for surgery. Once he is stable medically, then probably an amputation will be scheduled during this hospitalization or later on.
[2016-08-30] MEDS ORDERED: GOLYTELY SOLN 4000 ML BTL PO ONE (17:00)
--- NOTE | 2016-08-30 21:06 | ECHO ---
DATE OF PROCEDURE: AGE: 65 GENDER: Male HEIGHT: 74 inches WEIGHT: 219 pounds BODY SURFACE AREA: 2.26 sq m PATIENT LOCATION: Inpatient, PCU. REFERRING PHYSICIAN: Dr. Fajardo INDICATION: Abnormal EKG. 2-D MEASUREMENTS: RV: 5.4 cm LV: 5.4 cm Septum: 1.4 cm Posterior wall: 1.4 cm Aortic root: 3.4 cm LA: 4.8 Ascending aorta: 3.8 cm LVEF: 75% DOPPLER MEASUREMENTS: AV: 3.5 m/s LVOT: 1.8 m/s LVOT diameter: 2.3 cm Mean AV systolic gradient: 27 mmHg MV-E: 200, A: 75, EA ratio: 2.7:1 Early mitral deceleration time: 183 ms E prime: 5.6, A prime: 4.5, E/E prime ratio: 36 PV: 1.2 m/s Pulmonary artery acceleration time: 88 ms RVSP: 109 mmHg IVC: 2.8 cm COMMENTS: Normal sinus rhythm/sinus bradycardia. Moderately dilated left atrium but normal left ventricular size. Prominently dilated right ventricle and right atrium with prominently dilated inferior vena cava (IVC). Left ventricle (LV) wall thickness was moderately increased symmetrically on real-time imaging from the parasternal and apical projections. There appears to be a localized septal wall motion abnormality, but other sheridan moved normally or were hyperkinetic. Slight thickening of the mitral annulus, but normal leaflet thickness and excursion with no posterior systolic buckling. Three equal sized aortic cusps with moderately thick cusp edges and a degree of reduced cusp separation. Normal aortic root diameter, but at least mildly dilated proximal ascending aorta. No apparent intracardiac mass or pericardial effusion. Color flow Doppler study taken from the parasternal and apical projection showed moderate eccentric aortic insufficiency, moderate mitral insufficiency and severe tricuspid insufficiency. Guided continuous wave Doppler of his aortic valve and pulsed Doppler study of his LV outflow tract taken from the apical long axis and five chamber projection showed an increased peak systolic velocity, but also increased left ventricle outflow tract velocity with an elevated mean transvalvular systolic gradient and dimensionless index of 0.5 - the latter would be against any significant degree of aortic stenosis. Pulsed and continuous wave Doppler taken from the apical four-chamber projection showed normal peak diastolic filling velocities against mitral stenosis. There was much more prominent early diastolic/passive filling pattern. Though his early mitral deceleration time was normal, tissue Doppler was considerably abnormal with estimated mean left atrial pressure using pulsed and tissue Doppler of his mitral annulus markedly elevated. Pulsed and continuous wave Doppler of his pulmonary trunk showed a normal peak systolic velocity against RV outflow tract obstruction. His pulmonary artery acceleration time was significantly abbreviated consistent with an elevated pulmonary vascular resistance. Guided continuous wave Doppler of his tricuspid valve allowed our estimation of his right ventricular systolic pressure (severely increased). His inferior vena cava was prominently dilated with absent respiratory collapse consistent with an elevated central venous pressure of at least 20 mmHg. CONCLUSIONS: Moderate concentric left ventricle hypertrophy with localized septal wall motion abnormality believed to be related to right ventricular pressure overload. Global left ventricular systolic function within normal limits. Moderately dilated left atrium with Doppler evidence of a degree of impaired LV diastolic function and markedly elevated mean left atrial pressure. Prominently dilated right heart chambers with Doppler evidence of severe pulmonary hypertension. Markedly dilated inferior vena cava (IVC) with absent respiratory collapse consistent with an elevated central venous pressure/right heart failure. Moderate aortic valvular sclerosis with no more than mild stenosis, but moderate eccentrically directed insufficiency. Slight mitral annular calcification without inflow tract obstruction, but at least moderate mitral insufficiency. Normal appearing tricuspid valve, but severe tricuspid insufficiency. The above test findings are consistent with a very limited prognosis.
[2016-08-31] VITALS (9 sets, daily range): BP systolic 102–125; BP diastolic 52–62
[2016-08-31 04:49] LABS: MEAN CORPUSCULAR HEMOGLOBIN 27.4 pg (27.0-33.0); MEAN CORPUSCULAR HGB CONC 31.9 g/dl (32.0-36.5); RED CELL DISTRIBUTION WIDTH 20.7 % (11.5-14.5); WHITE BLOOD COUNT 8.6 K/mm3 (4.0-10.0)
[2016-08-31 04:52] LABS: INR 1.26
[2016-08-31] MEDS ORDERED: GOLYTELY SOLN 4000 ML BTL PO ONE (05:00)
[2016-08-31 05:17] LABS: ALBUMIN 2.3 GM/DL (3.2-5.2); ALBUMIN/GLOBULIN RATIO 0.72 (1.00-1.93); CALCIUM LEVEL 7.7 MG/DL (8.8-10.2); CREATININE FOR GFR 7.52 MG/DL (0.70-1.30); GLOMERULAR FILTRATION RATE 9.4 (>49); MAGNESIUM LEVEL 2.3 MG/DL (1.8-2.4); POTASSIUM SERUM 3.6 MEQ/L (3.5-5.1); TOTAL PROTEIN 5.5 GM/DL (6.4-8.2)
[2016-08-31] MEDS: SODIUM CHLORIDE 0.9% INJ 10 ML SYR IV SCH ×3 (06:35→22:25)
[2016-08-31] MEDS: SLF 3 ML SYR IV SCH ×3 (06:35→22:00)
[2016-08-31] MEDS: CEFTAROLINE FOSAMIL 200 MG in D5W 50 ML IV SCH ×2 (06:36→18:07)
[2016-08-31] MEDS: SENOKOT S TAB PO SCH ×2 (07:00→18:12)
[2016-08-31] MEDS: METOPROLOL TART 25 MG TABLET PO SCH ×2 (07:02→08:20)
[2016-08-31] MEDS: PANTOPRAZOLE 20 MG TAB PO SCH (08:16)
[2016-08-31] MEDS: ACETAMINOPHEN TAB 650MG DOSE (2X325MG) PO PRN (08:40)
[2016-08-31] MEDS ORDERED: POTASSIUM CHLORIDE 10 MEQ SR TABLET PO ONE (10:00)
--- NOTE | 2016-08-31 13:39 | IPN ---
DATE: 08/31/2016 SUBJECTIVE: This morning, the patient reports he is feeling well and has no complaints. OBJECTIVE: VITAL SIGNS: Temperature 97.9, pulse 61, respiratory rate 18, blood pressure 124/62, oxygen saturation 97% on room air. GENERAL: He is a pleasant, obese -Gabonese male, elderly, laying in bed in no distress. He is accompanied by his . HEENT: Cranial nerves II-XII are grossly intact. He has a right internal jugular (IJ) central venous catheter. CARDIOVASCULAR: S1, S2, regular. RESPIRATORY EXAM: Diminished breath sounds at the bases. ABDOMINAL EXAM: Obese. EXTREMITIES: He has a fistula in his upper extremity. No clubbing, cyanosis or edema. LABORATORY STUDIES: WBC 8.6, hemoglobin 8.5, stable, hematocrit 26.8, platelet count 107. Chemistry panel: Sodium 136, potassium 3.6 repleted, chloride 97, bicarbonate 29, BUN 48, creatinine 7.5. Liver function tests continue to trend down. AST 421 down from 885, ALT 603 down from 805. INR today is 1.2 down from 1.8 at the time of arrival. Blood cultures are all thus far negative. Peripheral smear is pending. No new imaging. Echocardiogram revealed preserved systolic function, moderate concentric left ventricular hypertrophy (LVH), with local septal wall motion abnormality, right ventricle (RV) pressure overload, impaired left diastolic function, dilated inferior vena cava (IVC). ASSESSMENT AND PLAN: This is a 65-year-old man transferred from an outside hospital for gastrointestinal (GI) bleed and lactic acidosis. 1. GI bleed. The patient had upper endoscopy that revealed a gastric polyp. The plan is for him to go today now that he is further up from his anticoagulation to have the polyp removed during upper endoscopy. He is also to undergo lower endoscopy just to localize any potential source of bleeding. The patient's acute blood loss anemia has resolved with transfusion. His hemoglobin and hematocrit (H and H) has remained stable. He is on proton pump inhibitor (PPI) by mouth for GI prophylaxis. He has not had any further tarry stools. I suspect his GI bleeding spontaneously resolved. This may be secondary to diverticulosis, this would be my suspicion. 2. Hypotension during hemodialysis. The patient's hemoglobin was quite low and during fluid removal he became hypotensive and did have significant lactic acidosis. This did resolve with fluid resuscitation and blood transfusion. 3. End-stage renal disease on hemodialysis. Dr. Jean-Baptiste's help is greatly appreciated. He is scheduled for hemodialysis today. He does appear to be fluid overloaded and I suspect would likely tolerate fluid removal at this time. 4. Eleven beats of nonsustained ventricular tachycardia. An echocardiogram reveals a normal ejection fraction. He is on a beta ross. Will continue to optimize his potassium and magnesium and simply monitor for now. 5. Hypertensive heart disease and diastolic congestive heart failure. The patient does appear to be volume overloaded and have some decompensated diastolic heart failure at this time. He will undergo dialysis today and fluid removal. 6. Atrial fibrillation. His Eliquis has been held secondary to acute blood loss anemia from GI bleed. The patient also has had recently some bleeding in his right ear for which he was to see ENT on the outpatient setting. He will use digoxin for rate control and metoprolol. Could reevaluate his risk versus benefits of him being on senior living anticoagulation prior to discharge. 7. Systemic inflammatory response syndrome or sepsis secondary to left lower extremity ulcer. The patient is on empiric Ceftaroline. Once the patient has been stable and has been cleared from a GI bleed standpoint, I think he would be best served by below knee amputation (BKA) or above the knee amputation (AKA) of his left lower extremity as per Dr. Dela Cruz whose help is appreciated. 8. Deep vein thrombosis (DVT) prophylaxis. The patient is on sequentials and thromboembolic devices (TEDS). 9. Gastrointestinal (GI) prophylaxis. The patient is on Protonix. DISPOSITION: The patient continues to improve and will continue to follow him closely.
[2016-08-31] MEDS ORDERED: PROPOFOL 200 MG/20 ML VIAL As Ordered ONE (14:19)
[2016-08-31] MEDS ORDERED: LIDOCAINE 2% INJ 100 MG/5 ML SDV (FOR ANES.) As Ordered ONE (14:19)
[2016-08-31] MEDS ORDERED: ePHEDrine SULFATE 25 MG/5 ML(5MG/ML) SYRINGE As Ordered ONE (16:15)
--- NOTE | 2016-08-31 17:03 | ROOR ---
Patient Name: Nicho Fernandez Procedure Date: 08/31/2016 2:20 PM Date of : 1950 Age: 65 Room: Main OR Gender: Male Note Status: Finalized Procedure: Colonoscopy Indications: Heme positive stool, Unexplained iron deficiency anemia Providers: Oleksandr HEATH MD Referring MD: 2. Inpatient 2. Inpatient Requesting Provider: Medicines: Monitored Anesthesia Care Complications: No immediate complications. Procedure: Pre-Anesthesia Assessment: - The heart rate, respiratory rate, oxygen saturations, blood pressure, adequacy of pulmonary ventilation, and response to care were monitored throughout the procedure. The Colonoscope was introduced through the anus and advanced to 5 cm into the ileum. The colonoscopy was performed without difficulty. The patient tolerated the procedure well. The quality of the bowel preparation was fair. Findings: The perianal and digital rectal examinations were normal. (EXAM: Complete, PREP:Adequate) Internal hemorrhoids were found during retroflexion. The hemorrhoids were moderate. Multiple medium-mouthed non-bleeding diverticula were found in the descending colon and in the ascending colon. Two sessile polyps were found in the ascending colon. The polyps were 5 to 6 mm in size. These polyps were removed with a cold snare. Resection and retrieval were complete. The terminal ileum appeared normal. Impression: - (EXAM: Complete, PREP:Adequate) - Moderate Internal hemorrhoids and with minimal radiation proctitis (anal canal only). - Moderate diverticulosis without bleeding in the descending colon and in the ascending colon. - Two 5 to 6 mm polyps in the ascending colon, removed with a cold snare. Resected and retrieved. - The rest of the colon and examined portion of the ileum was normal. Recommendation: - Return patient to [facility] for ongoing care. - Resume Eliquis (apixaban) at prior dose in 4 days. Oleksandr Heath MD Oleksandr HEATH MD 08/31/2016 5:03:25 PM This report has been signed electronically. Number of Addenda: 0 Note Initiated On: 08/31/2016 2:20 PM Estimated Blood Loss: Estimated blood loss: none.
--- NOTE | 2016-08-31 17:10 | ROOR ---
Patient Name: Nicho Fernandez Procedure Date: 08/31/2016 3:35 PM Date of : 1950 Age: 65 Room: Main OR Gender: Male Note Status: Finalized Procedure: Upper GI endoscopy Indications: Therapeutic procedure, Unexplained iron deficiency anemia, ( erythematous/?hemorrhagic gastric polyp) Providers: Oleksandr HEATH MD Referring MD: 2. Inpatient 2. Inpatient Requesting Provider: Medicines: Monitored Anesthesia Care Complications: No immediate complications. Procedure: Pre-Anesthesia Assessment: - The heart rate, respiratory rate, oxygen saturations, blood pressure, adequacy of pulmonary ventilation, and response to care were monitored throughout the procedure. The Endoscope was introduced through the mouth, and advanced to the third part of duodenum. The upper GI endoscopy was accomplished without difficulty. The patient tolerated the procedure well. Findings: The examined esophagus was normal. - No varices A single 7 mm semi-sessile polyp was found in the prepyloric region of the stomach. The polyp was removed with a hot snare. Resection and retrieval were complete. To prevent bleeding after the polypectomy, one hemostatic clip was successfully placed. The exam of the stomach was otherwise normal.-No varices The examined duodenum was normal. Impression: - Normal esophagus. - A single gastric polyp. Resected and retrieved. Clip was placed. - Stomach otherwise normal. - Normal examined duodenum. - No gastric/esophageal varices seen. Recommendation: - Observe patient's clinical course. - Resume Eliquis (apixaban) at prior dose in 4 days. - Advance diet as tolerated today. - Return patient to hospital [facility] for ongoing care. Oleksandr Heath MD Oleksandr HEATH MD 08/31/2016 5:10:07 PM This report has been signed electronically. Number of Addenda: 0 Note Initiated On: 08/31/2016 3:35 PM Estimated Blood Loss: Estimated blood loss: none.
[2016-08-31] MEDS ORDERED: D5W/0.2% SODIUM CHLORIDE 1,000 ML IV SCH (17:45)
--- NOTE | 2016-08-31 19:50 | IPN ---
DATE: 08/31/2016 SUBJECTIVE: Patient was seen and examined at the bed side today. His family was also present at the bed side. Patient is awake and alert. He is telling me that he is nothing by mouth for colonoscopy today and today is patient's day of hemodialysis as well. REVIEW OF SYSTEMS: Patient denies any fever, chills, rigors, headache, nausea, vomiting, chest pain, shortness of breath, pain in abdomen, constipation or diarrhea. Rest of review of systems is negative. OBJECTIVE: VITAL SIGNS temperature 96.6 degrees Fahrenheit, blood pressure 123/56, pulse is 63, respiratory rate 18, saturating 94% on room air. Intake and output: Urine output is not recorded in this patient. Weight in the bath scale is 103.3 kg. PHYSICAL EXAMINATION: GENERAL: Patient is awake, alert, and oriented times three laying in the bed. In no apparent distress. HEAD AND NECK EXAM: Extraocular muscles intact. Pupils equal, round, reactive to light and accommodation. Neck is supple. There is no jugular venous distention. Patient has a right IJ triple lumen catheter. CARDIOVASCULAR: S1, S2. Patient has a 2/6 systolic murmur. RESPIRATORY: Chest is clear to auscultation bilaterally. Bilateral equal air entry. ABDOMEN: Soft, positive bowel sounds. Non-tender, no ascites. No hepatosplenomegaly. EXTREMITIES: No cyanosis or clubbing. Pulses are 2+. Left foot is wrapped in a dressing. Right heel also has a dressing. AV [place] patient has a left forearm AV fistula. CENTRAL NERVOUS SYSTEM: No focal neurological deficit. 4-5/5 in all extremities. LAB REVIEW: CBC showed a WBC of 8.6, hemoglobin 8.5, platelets 107. BMP showed sodium 136, potassium 3.6, chloride 97, bicarbonate 29, BUN 48, creatinine 7.52, calcium 7.7, magnesium 2.3. MEDICATION: Patients current medications were all reviewed by me. Pertinent medication includes ceftaroline 200 mg IV every 12 hours. Metoprolol 25 mg by mouth twice a day. ASSESSMENT: 65-year-old male with past medical history of end stage renal disease on hemodialysis every Wednesday, Wednesday, Wednesday this admission with severe anemia, most likely secondary to lower GI bleed. PLAN: 1. Severe anemia. Patient got 6 units of PRBC transfusion after admission to the hospital. He is nothing by mouth today. He is going to get his colonoscopy done today. 2. End stage renal disease on hemodialysis. Patient regular days are Wednesday, Wednesday, Wednesday. Patient is nothing by mouth. I will not dialyze at this time. Patient will get his colonoscopy done and I will dialyze him tomorrow. 3. Left foot gangrene and osteomyelitis. Patient would likely need below knee amputation due to severe peripheral vascular disease. At this time patient is not medically stable for surgery because of his ongoing rectal bleeding. Continue the medical management at this time. 4. Hypertension. Continue metoprolol at this time. 5. History of atrial fibrillation. Eliquis was held because of GI bleeding.
[2016-09-01] MEDS: ACETAMINOPHEN TAB 650MG DOSE (2X325MG) PO PRN (00:55)
[2016-09-01 05:29] VITALS: BP 104/55
[2016-09-01 05:41] LABS: ALBUMIN 2.3 GM/DL (3.2-5.2); ALBUMIN/GLOBULIN RATIO 0.7 (1.00-1.93); BILIRUBIN,TOTAL 0.8 MG/DL (0.2-1.0); CALCIUM LEVEL 7.5 MG/DL (8.8-10.2); CREATININE FOR GFR 9.31 MG/DL (0.70-1.30); GLOMERULAR FILTRATION RATE 7.3 (>49); MAGNESIUM LEVEL 2.2 MG/DL (1.8-2.4); POTASSIUM SERUM 3.4 MEQ/L (3.5-5.1); TOTAL PROTEIN 5.6 GM/DL (6.4-8.2)
[2016-09-01 05:44] LABS: MEAN CORPUSCULAR HGB CONC 31.4 g/dl (32.0-36.5); MEAN CORPUSCULAR VOLUME 85.9 fl (80.0-96.0); RED CELL DISTRIBUTION WIDTH 20.8 % (11.5-14.5); WHITE BLOOD COUNT 6.6 K/mm3 (4.0-10.0)
[2016-09-01 05:48] LABS: INR 1.36
[2016-09-01] MEDS: SENOKOT S TAB PO SCH ×2 (05:54→21:35)
[2016-09-01] MEDS: CEFTAROLINE FOSAMIL 200 MG in D5W 50 ML IV SCH ×2 (05:57→17:15)
[2016-09-01] MEDS: SODIUM CHLORIDE 0.9% INJ 10 ML SYR IV SCH ×2 (05:57→14:05)
[2016-09-01] MEDS: SLF 3 ML SYR IV SCH ×3 (05:57→22:00)
[2016-09-01] MEDS: PANTOPRAZOLE 20 MG TAB PO SCH (05:58)
[2016-09-01 07:31] LABS: REASON FOR REVIEW COMPREHENSIVE REVIEW
[2016-09-01 08:00] VITALS: BP 117/64
[2016-09-01 08:06] LABS: PLTBLUE- EDTA FREE MACHINE 68 k/mm3 (172-450)
[2016-09-01 08:24] LABS: PLTBLUE- EDTA FREE CALC 75 K/mm3 (172-450)
--- NOTE | 2016-09-01 09:16 | IPN ---
DATE OF EXAMINATION: 09/01/2016 SUBJECTIVE: This morning, the patient reports he is feeling well and has no specific complaints. OBJECTIVE: VITAL SIGNS: Temperature 96.3, pulse 70, respiratory rate 17, blood pressure (BP) 104/55, oxygen (O2) saturation 95% on room air. GENERAL: He is a very pleasant -[place] male, lying in bed, sleeping peacefully when I enter the room, but he is easily arousable to verbal stimuli. He does not appear to be in any acute distress. HEENT: Cranial nerves II-XII are grossly intact. He has a right central venous catheter. He has moist mucous membranes. There is no elevation in central venous pressure at the present time that is appreciable. CARDIOVASCULAR EXAMINATION: S1, S2, regular. RESPIRATORY EXAMINATION: Is clear. Diminished breath sounds at the bases. ABDOMINAL EXAMINATION: Is benign. EXTREMITIES: No clubbing, cyanosis, or edema. LABORATORY STUDIES: WBC 6.6, hemoglobin 8.4, hematocrit 26.8, platelet count 98 down from 187 at the time of admission. Chemistry panel: Sodium 134, potassium 3.4 repleted, chloride 95, bicarbonate 28, BUN 33, creatinine 9.3. Liver function tests continue to trend down, AST 187 down from 421, ALT 439 down from 603. INR this morning is 1.3. Gastrointestinal (GI) pathology is currently pending. No new imaging. 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 Two 5-6 mm polyps in the ascending colon removed. The patient also had a repeat endoscopy during which a _ gastric polyp was resected, and a clip was placed. ASSESSMENT AND PLAN: This is a 65-year-old man transferred from an outside hospital for a gastrointestinal (GI) bleed and severe lactic acidosis. PROBLEMS: 1. Gastrointestinal bleed. Upper and lower endoscopies have failed to reveal any active bleeding. This may be secondary to some moderate radiation proctitis versus a bleeding polyp. Both have been removed. The patient has been stopped from his anticoagulation for the present time. He is currently on a proton pump inhibitor by mouth with GI prophylaxis. He has not had any further melena. Hemoglobin and hematocrit has remained stable following 6 units of packed red blood cells. Prior to discharge, we will have to revisit risks versus benefits of being on long-term anticoagulation for atrial fibrillation. 2. Shock liver and hypotension during hemodialysis. The patient's hemoglobin was quite low during fluid removal. This likely etiology for his hypotension and likely etiology for his quickly resolved lactic acidosis and acute hepatitis. 3. End-stage renal disease, on hemodialysis. Dr. Abraham's help was greatly appreciated. He is scheduled for hemodialysis today. He does appear to be fluid overloaded. I think he would benefit from fluid removal. 4. Eleven beats of nonsustained ventricular tachycardia. An echocardiogram revealed a normal ejection fraction. He is on a beta ross. We will continue to optimize his electrolytes. He has not had any further episodes. 5. Hypertensive heart disease and diastolic congestive heart failure, fluid overloaded. The patient will receive hemodialysis today, and I suspect he would benefit from fluid removal. 6. Atrial fibrillation. His anticoagulation has been held. As per Dr. Heath, it should be resumed perhaps on 09/04/2016. At that time, we can reevaluate the risks versus benefits of long-term anticoagulation. 7. Systemic inflammatory response syndrome or severe sepsis, possibly secondary to left lower extremity wound. However, it was more likely related to hypotension and anemia related to gastrointestinal (GI) bleed. The patient is on empiric Ceftaroline. The patient is essentially cleared from a gastroenterology standpoint. He is no longer actively bleeding. I suspect that he is as best optimized as he will be regarding the need for a below-knee or possibly above-knee amputation for peripheral vascular disease related to this left lower extremity ulcer. Dr. Dela Cruz's help has been appreciated. I have spoken with Dr. Gale previously regarding his mild troponinemia thought to be secondary to end-stage renal disease and significant hypotension. From a cardiac standpoint, he does appear to be optimized as well as possible for a pending procedure and requiring no further testing prior to procedure. He has been previously assessed by both me and Dr. Heath with Dr. Gale. 8. Deep vein thrombosis (DVT) prophylaxis. He is on sequentials and thromboembolic deterrents (TEDs). 9. Gastrointestinal (GI) prophylaxis. The patient is on Protonix. DISPOSITION: I have discussed the case with Dr. Burns this morning, who will evaluate the patient today for potential amputation, and the patient will also receive hemodialysis today. MARIA ALEJANDRA
[2016-09-01 14:00] VITALS: BP 121/58
[2016-09-01] MEDS: POTASSIUM CHLORIDE 10 MEQ SR TABLET PO SCH (14:06)
[2016-09-01] MEDS: METOPROLOL TART 25 MG TABLET PO SCH ×2 (14:07→21:36)
[2016-09-01 16:00] VITALS: BP 126/68
[2016-09-01 19:54] VITALS: BP 109/54
--- NOTE | 2016-09-01 21:06 | IPN ---
DATE: 09/01/2016 SUBJECTIVE: The patient was seen and examined during hemodialysis procedure done today morning. The patient was tolerating the hemodialysis procedure well. Last 24-hour events were noted. The patient got colonoscopy done yesterday which showed internal hemorrhoid and mild radiation proctitis. Otherwise there was no active source of bleeding. REVIEW OF SYSTEMS: The patient denies any fevers, chills, rigors, headaches, nausea, vomiting, chest pain, shortness of breath, pain abdomen, constipation, or diarrhea. He still complains of leg ulcers. Rest of review of systems is negative. OBJECTIVE: VITAL SIGNS: Temperature 97.3 degrees Fahrenheit, blood pressure is 126/68, pulse is 72, respiratory rate of 18, saturating 98% on room air. INTAKE AND OUTPUT: Urine output is not recorded. Weight on the bath scale was 103.2 kg. PHYSICAL EXAMINATION: GENERAL: The patient is awake, alert, and oriented times three, lying in the bed, getting hemodialysis done today. HEAD/NECK: Extraocular muscles intact. Pupils equal, round, reactive to light and accommodation. Neck is supple. There is no jugular venous distention (JVD). The patient has a right internal jugular (IJ) triple lumen catheter. CARDIOVASCULAR: S1, S2. The patient has a grade 2/6 systolic murmur. RESPIRATORY: Chest is clear to auscultation bilaterally. Bilaterally equal air entry. ABDOMEN: Soft. Positive bowel sounds. Nontender. No ascites. No hepatosplenomegaly. EXTREMITIES: The patient's left foot is wrapped in a dressing and right heel also has a dressing. The patient has an arteriovenous (AV) fistula in the left forearm which is being used for hemodialysis at this time. CENTRAL NERVOUS SYSTEM (SALVAGER): No focal neurological deficit. Power is 5/5 in all extremities. LABORATORY DATA: CBC showed a WBC 6.6, hemoglobin 8.4, platelets 98. BMP showed sodium 134, potassium 3.4, chloride 95, bicarbonate 28, BUN 53, creatinine 9.3, calcium 7.5, magnesium 2.2. MEDICATIONS: The patient's current medications were reviewed by me. ASSESSMENT: A 65-year-old male with past medical history of end-stage renal disease on hemodialysis every Wednesday, Wednesday, Wednesday, this admission with severe anemia, status post colonoscopy which showed mild radiation proctitis and internal hemorrhoids. PLAN: 1. Severe anemia. The patient got six units of packed red blood cells (PRBC) transfusion. Colonoscopy result as mentioned above. Hemoglobin is acceptable at this time 8.4. The patient will also get erythropoietin-stimulating agent (NISA) as outpatient as per his protocol. 2. End-stage renal disease on hemodialysis. The patient's regular days or Wednesday, Wednesday, Wednesday. He missed his hemodialysis yesterday because of colonoscopy. He is being dialyzed today. 3. Left foot gangrene and osteomyelitis. The patient will need left below-knee amputation because of severe peripheral vascular disease. The patient was not medically stable for the surgery because of rectal bleeding and anemia, awaiting for surgical reevaluation. 4. Hypertension. Continue current dose of metoprolol. 5. History of atrial fibrillation. Eliquis was held because of gastrointestinal (GI) bleeding.
[2016-09-01 23:59] VITALS: BP 117/56
[2016-09-02] MEDS: SODIUM CHLORIDE 0.9% INJ 10 ML SYR IV SCH ×4 (01:49→21:36)
[2016-09-02 04:45] VITALS: BP 115/56
[2016-09-02] MEDS: SLF 3 ML SYR IV SCH (04:48)
[2016-09-02 05:13] LABS: MEAN CORPUSCULAR HEMOGLOBIN 26.5 pg (27.0-33.0); MEAN CORPUSCULAR HGB CONC 30.9 g/dl (32.0-36.5); MEAN CORPUSCULAR VOLUME 85.9 fl (80.0-96.0); RED CELL DISTRIBUTION WIDTH 21.5 % (11.5-14.5); WHITE BLOOD COUNT 7.3 K/mm3 (4.0-10.0)
[2016-09-02 05:17] LABS: INR 1.24
[2016-09-02 05:25] LABS: ALBUMIN 2.4 GM/DL (3.2-5.2); ALBUMIN/GLOBULIN RATIO 0.67 (1.00-1.93); BILIRUBIN,TOTAL 0.9 MG/DL (0.2-1.0); CALCIUM LEVEL 8.2 MG/DL (8.8-10.2); CREATININE FOR GFR 5.89 MG/DL (0.70-1.30); GLOMERULAR FILTRATION RATE 12.4 (>49); POTASSIUM SERUM 4.3 MEQ/L (3.5-5.1)
[2016-09-02] MEDS: CEFTAROLINE FOSAMIL 200 MG in D5W 50 ML IV SCH (05:54)
[2016-09-02 08:00] VITALS: BP 109/65
[2016-09-02] MEDS: PANTOPRAZOLE 20 MG TAB PO SCH (08:59)
[2016-09-02] MEDS: POTASSIUM CHLORIDE 10 MEQ SR TABLET PO SCH (08:59)
[2016-09-02] MEDS: SENOKOT S TAB PO SCH ×2 (08:59→21:34)
[2016-09-02] MEDS: METOPROLOL TART 25 MG TABLET PO SCH ×2 (08:59→21:34)
--- NOTE | 2016-09-02 09:54 | IPN ---
DATE: 09/02/2016 SUBJECTIVE: Today, the patient reports he is feeling great. He has no specific complaints. He is eager to have his foot examined and pursue any amputation as may be needed. OBJECTIVE: VITAL SIGNS: Temperature 96.1, pulse 67, respiratory rate 18, blood pressure (BP) 109/65, oxygen (O2) saturation 97% on room air. GENERAL: He is a pleasant elderly -[place] man laying flat in bed. He does not appear to be in any acute distress. HEENT: Cranial nerves II-XII are grossly intact. He has a central venous catheter in his right internal jugular (IJ). He has moist mucous membranes. No elevation in central venous pressure. CARDIOVASCULAR EXAMINATION: S1, S2, regular. RESPIRATORY EXAMINATION: Is clear. ABDOMINAL EXAM: Obese. EXTREMITIES: His left foot dressing is clean, dry and intact. LABORATORY STUDIES: Today, WBC 7.3, hemoglobin 8.6, hematocrit 28, platelet count 87 and continues to trend down. EDTA free platelet count is 75. Chemistry panel: Sodium 138, potassium 4.3, chloride 100, bicarbonate 28, BUN 25, creatinine 5.8. Liver function tests are continuing to trend down with AST 120 down from 187, ALT 348 down from 439. INR 1.24. Heparin induced antibody is currently pending. No new microbiology. ASSESSMENT AND PLAN: This is a 65-year-old man transferred from an outside hospital for gastrointestinal (GI) bleed and severe lactic acidosis. PROBLEMS: 1. Gastrointestinal bleed. Upper and lower endoscopies have not shown any active bleeding. Blood loss may be secondary to some moderate radiation proctitis versus polyp. Both of the patient's polyps have been removed. The patient's anticoagulation has been stopped. His hemoglobin and hematocrit (H and H) have remained stable. He did receive 6 units of packed red blood cells (PRBCs) during this stay. 2. Shock liver and hypotension during hemodialysis. The patient's hemoglobin was quite low during fluid removal and likely the etiology for his hypotension. Severe lactic acidosis and acute hepatitis are quickly resolving with blood transfusions and IV fluids. 3. Eleven beats of nonsustained ventricular tachycardia. An echocardiogram revealed a normal ejection fraction. He is on a beta ross. Will continue to optimize his electrolytes. He has not had any further significant events other than some occasional ectopy. Recommend he can be down graded from the progressive care unit to medical-surgical floor. 4. Hypertensive heart disease and diastolic congestive heart failure. He was fluid overloaded and he has received hemodialysis yesterday. 5. Atrial fibrillation. Anticoagulation has been held. Dr. Heath feels it should be held until 09/04/2016; however, at this time I would recommend continuing to hold as the patient is awaiting evaluation by Dr. Burns. 6. Severe sepsis secondary to left lower extremity wound, although I feel the patient's lactic acid and hypertension were not related to sepsis and not related to his left lower extremity wound, he certainly does have this. He was seen by Dr. Dela Cruz and who follows him in the outpatient setting for his chronic wound secondary to peripheral vascular disease. Dr. Dela Cruz is recommending below-knee amputation (BKA) versus above-knee amputation (AKA) of the left lower extremity. We are currently awaiting an evaluation from Dr. Burns. I did speak with him yesterday and he informed me that he would see the patient. From a cardiac standpoint, the patient does appear to be optimized as well as possible for a pending procedure and requiring no further testing or procedure. The case was previously discussed with Dr. Gale by both myself and Dr. Heath. 7. Thrombocytopenia. Likely medication adverse effect. He has been on Ceftaroline and Protonix. We are discontinuing both of these medications. I will switch him to vancomycin for the left lower extremity cellulitis. 8. Gastrointestinal (GI) prophylaxis. He is on Protonix. 9. Deep vein thrombosis (DVT) prophylaxis. He is on sequentials and thromboembolic deterrents (TEDS). He is thrombocytopenic. Continue to monitor his platelets and followup heparin induced antibody.
[2016-09-02] MEDS ORDERED: VANCOMYCIN HCL 750 MG, VIAL MATE ADAPTER 1 EACH in D5W 250 ML IV ONE (11:00)
[2016-09-02 12:00] VITALS: BP 110/68
[2016-09-02 16:00] VITALS: BP 150/82
[2016-09-02] MEDS ORDERED: DARBEPOETIN 100 MCG/0.5 ML *DIALYSIS* SYRINGE (J0882) IV SCH (17:45)
[2016-09-02 20:00] VITALS: BP 152/66
--- NOTE | 2016-09-02 20:33 | PHACANCOPD ---
PHARMACY VANCOMYCIN DOSING Pt Demographics Demographics Patient Age:65 , Weight:103.200 , Gender: male Adjusted Body Weight Date: 09/02/16, Adjusted Body Weight: Kg Events Past 24 Hours Events Past 24 Hours: YES: Dialysis Vancomycin Vancomycin indication: LLE Cellulitis Vancomycin Target Ranges: 10-20 mcg/ml Vancomycin Load Y/N: No Load Dose Date Time Vancomycin Load Dose: Date: Time: Vancomycin Dose Date: 09/02/16. Current Vancomycin Dose: [750mg x 1 dose then Vanco 1gm after HD ] Intermittent Dosing?: No Labs Labs Item Value Date Time White Blood Count 6.6 K/mm3 09/01/16 0504 White Blood Count 7.3 K/mm3 09/02/16 0447 Creatinine 7.52 MG/DL H 08/31/16 0433 Creatinine 9.31 MG/DL H 09/01/16 0504 Creatinine 5.89 MG/DL H 09/02/16 0447 Micro Microbiology 08/28/16 Blood Culture - Final, Complete NO GROWTH AFTER 5 DAYS 08/28/16 Blood Culture - Final, Complete NO GROWTH AFTER 5 DAYS 08/28/16 MRSA Screen - Final, Complete Creatinine Clearance Date:09/02/16. Creatinine Clearance: . Assessment and Plan Maintaining Current Dose?: Yes Reason for dose change: No Dose Change Pharmacist Note Pharmacist Note Date: 09/02/16. Pharmacist note: Patient is experiencing severe LLE cellulitis. He has no history of MRSA at our facility nor any history of Vancomycin. He may be receiving below knee amputation in the near future. Patient is currently on MWF dialysis schedule. He missed Wednesday's session due to a colonoscopy so he received it Wednesday. We gave him a dose of 750mg today then will continue him on Vancomycin 1GM after HD. His next schedule of dialysis has not yet been scheduled. We will continue to monitor and make adjustments as necessary. BALAJI [facility] Sep 02, 2016 20:32
[2016-09-02 23:59] VITALS: BP 140/64
[2016-09-03 04:00] VITALS: BP 154/69
[2016-09-03] MEDS: SODIUM CHLORIDE 0.9% INJ 10 ML SYR IV SCH ×3 (05:04→21:15)
[2016-09-03 05:12] LABS: MEAN CORPUSCULAR HEMOGLOBIN 26.9 pg (27.0-33.0); MEAN CORPUSCULAR HGB CONC 31.2 g/dl (32.0-36.5); RED CELL DISTRIBUTION WIDTH 21.4 % (11.5-14.5); WHITE BLOOD COUNT 7.1 K/mm3 (4.0-10.0)
[2016-09-03 05:19] LABS: INR 1.23
[2016-09-03 05:49] LABS: ALBUMIN 2.3 GM/DL (3.2-5.2); ALBUMIN/GLOBULIN RATIO 0.64 (1.00-1.93); CREATININE FOR GFR 7.37 MG/DL (0.70-1.30); DIGOXIN LEVEL 1.1 NG/ML (0.5-2.0); GLOMERULAR FILTRATION RATE 9.6 (>49); MAGNESIUM LEVEL 2.2 MG/DL (1.8-2.4); POTASSIUM SERUM 4.4 MEQ/L (3.5-5.1); TOTAL PROTEIN 5.9 GM/DL (6.4-8.2)
[2016-09-03] MEDS: SENOKOT S TAB PO SCH ×2 (06:31→21:15)
[2016-09-03] MEDS: POTASSIUM CHLORIDE 10 MEQ SR TABLET PO SCH (06:33)
--- NOTE | 2016-09-03 06:33 | IPN ---
DATE OF SERVICE: 09/02/2016 SUBJECTIVE: The patient was seen and examined at the bedside today. He tolerated his hemodialysis procedure well yesterday. He denies any active complaints at this time. REVIEW OF SYSTEMS: The patient denies any fevers, chills, rigors, headache, chest pain, shortness of breath, pain abdomen, constipation, diarrhea. He still is complaining of left foot ulcer, which has a dressing on it. Rest of the review of systems is negative. OBJECTIVE: VITAL SIGNS: Temperature is 96.3 degrees Fahrenheit, blood pressure is 110/68, pulse is 66, respiratory rate of 18, saturating 97% on room air. INTAKE AND OUTPUT: There is no urine output recorded. Patient got hemodialysis done yesterday and 2 liters of ultrafiltration was done. PHYSICAL EXAMINATION: GENERAL: Patient is awake, alert, and oriented times three, lying in bed, no apparent distress. HEAD AND NECK EXAMINATION: Extraocular muscles intact. Pupils equally round, reactive to light and accommodation. Neck is supple. There is no jugular venous distention (JVD). CARDIOVASCULAR: S1, S2, regular rate. He has a grade 2/6 systolic murmur. RESPIRATORY: Chest is clear to auscultation bilaterally. Bilateral equal air entry. ABDOMEN: Soft. Positive bowel sounds. Nontender. No ascites. No hepatosplenomegaly. EXTREMITIES: Patient has a left foot ulcer, which is wrapped in dressing. He has a right heel ulcer as well, which is wrapped at this time. He has an arteriovenous (AV) fistula in the left forearm, which has a good thrill and bruit. CENTRAL NERVOUS SYSTEM (THERMOFORMING OPERATOR): No focal neurological deficit. Power is 5/5 in all extremities. LABORATORY DATA: CBC showed a WBC 7.3, hemoglobin 8.6, platelets 87. BMP showed sodium 138, potassium 4.3, chloride 100, bicarbonate 28, BUN 25, creatinine 5.89, calcium 8.2, magnesium 2. MEDICATIONS: Patient's medications were all reviewed by me. Currently, he is on vancomycin with hemodialysis. IMAGING: No new imaging available at this time. ASSESSMENT: 65-year-old male with past medical history of end-stage renal disease on hemodialysis every Wednesday, Wednesday, Wednesday, this admission with severe anemia, status post colonoscopy, which showed mild radiation proctitis and internal hemorrhoids. No active bleeding at this time. Patient also has peripheral vascular disease and left foot osteomyelitis. PLAN: 1. Severe anemia. The patient got blood during this admission. He also got colonoscopy, which showed mild proctitis. Hemoglobin is still below target. The patient will get Aranesp with hemodialysis session next time. No need of blood transfusion at this time. 2. End-stage renal disease on hemodialysis. Patient's regular days are Wednesday, Wednesday, Wednesday. His dialysis day was switched because of colonoscopy. His last dialysis was done yesterday. No urgent need to do hemodialysis today. Next dialysis will be done tomorrow. 3. Left foot gangrene and osteomyelitis. The patient would likely need left below-knee amputation because of severe peripheral vascular disease. He does not have any active bleeding at this time. Awaiting further recommendation from surgical service. 4. Hypertension. Blood pressure is acceptable at this time. Continue current dose of metoprolol. 5. History of atrial fibrillation. Patient's anticoagulation was stopped because of gastrointestinal (GI) bleeding. 6. Social issues. Patient is pending possible surgery and then possible placement at rehabilitation. Okay to discharge from nephrology standpoint whenever the acute issues are taken care of.
[2016-09-03 08:00] VITALS: BP 129/59
[2016-09-03] MEDS: METOPROLOL TART 25 MG TABLET PO SCH ×2 (09:00→21:15)
--- NOTE | 2016-09-03 09:20 | IPN ---
DATE OF VISIT: 09/03/2016 OBJECTIVE: The patient is seen and examined in the room today. The patient is resting comfortably in bed. The patient does not have any acute complaints. The patient experienced some intermittent sharp pain from the left foot, was controlled by the current pain medications. On cardiac telemetry, the patient was experienced bradycardia with the rate approximately 55, starting at midnight. Per patient, the patient was resting comfortably in bed at the moment of the events. A beta ross was placed with holding parameter. This morning the beta ross was not given and the patient has a normal heart rate and normal blood pressure. VITAL SIGNS: Temperature 97.2, pulse 65, respirations 20, blood pressure 129/59, Oxygen saturation 98% on room air. GENERAL: No sign of acute distress. Alert and oriented times three. HEENT: Normocephalic atraumatic. Extraocular muscles intact grossly intact. CARDIOVASCULAR: Positive S1, S2. Regular. LUNGS: Clear to auscultation bilaterally. ABDOMEN: Soft, nontender, nondistended. EXTREMITIES: Left foot wrapped with a dressing. The dressing clean and dry. LABORATORY DATA: WBC 7.1, hemoglobin 8.3, hematocrit 26.6, platelet count 86. Sodium 138, potassium 4.4, chloride 102, carbon dioxide 28, BUN 33, creatinine 7.37, glomerular filtration rate (GFR) 96. Fasting glucose 107, calcium 8, magnesium 2.2, total bilirubin 1, AST 92, ALT 271, Alkaline phosphatase 168, C-reactive protein 6.79. Total protein 5.9, albumin 2.3. ASSESSMENT AND PLAN: 1. Gastrointestinal bleed (GI). The patient had an upper and lower endoscopy. No significant finding was noted. The patient did not have any stool occult test ordered, however the patient did not have any bowel movement production, we were not able to obtain a sample. Currently the patient does have some minor fluctuation of the hemoglobin and hematocrit; however, he maintains at the level of approximately 8.3. The patient has been off the anticoagulation at this moment. 2. Shocked liver and hypotension during hemodialysis. Currently the patient is normotensive. Liver enzymes continue to improve. 3. Atrial fibrillation. The patient has beta blockers with holding parameters due to the incident of bradycardia this morning. The patient's anticoagulation has been on hold for acute GI bleed previously. However, will continue on hold due to possible lower extremity amputation. 4. Left lower extremity wound/ulcers: The patient was seen by Dr. Dela Cruz who recommended amputation. Dr. Burns was consulted and awaiting to see if the patient will be a candidate for the amputation. Currently, the patient's anticoagulation is on-hold. Currently the patient's antibiotics were switched from ceftaroline to vancomycin. The patient's C-reactive protein (CRP) is improving on a daily basis since August 28. In the past 24 hours the CRP has improved from 7.4 to 6.7. 5. History of severe sepsis secondary to left lower extremity wound. The patient has been receiving intravenous (IV) antibiotics and currently the patient is normotensive. The patient is currently under evaluation for possible amputation. 6. The patient has thrombocytopenia. Suspect adverse effect from the medications. Heparin induced thrombocytopenia (HIT) workup is pending at this moment. 7. End stage renal disease. The patient is on hemodialysis on a Wednesday, Wednesday and Wednesday schedule. 8. Deep venous thrombosis (DVT) prophylaxis. Due to the history of severe gastrointestinal bleed, anticoagulation is on hold. The patient is on sequential compression devices. 9. History of severe gastrointestinal bleed (GI) bleed. Anticoagulation is on hold. The patient is sequential compresssion devices.
[2016-09-03 10:25] LABS: VANCOMYCIN RANDOM 15.1 UG/ML
[2016-09-03 13:44] VITALS: BP 126/60
--- NOTE | 2016-09-03 13:47 | IPN ---
DATE: 09/03/2016 SUBJECTIVE: The patient was seen and examined at the bedside today during hemodialysis procedure. The patient is tolerating the hemodialysis procedure well. No complaints at this time. REVIEW OF SYSTEMS: The patient denies any fevers, chills, rigors, headache, chest pain, shortness of breath, palpitations, pain in abdomen, constipation, diarrhea. He does state that his left foot ulcer is being dressed every day. The rest of the review of systems is negative. OBJECTIVE: VITAL SIGNS: Temperature is 97.2 degrees Fahrenheit, blood pressure is 129/59, pulse is 65, respiratory rate of 18, saturating 98% on room air. INTAKE AND OUTPUT: There is no urine output recorded. Weight on the bed scale is 103.7 kg. PHYSICAL EXAMINATION: GENERAL: Patient is awake, alert, and oriented times three, lying in bed, getting hemodialysis done today. No apparent distress. HEAD AND NECK EXAMINATION: Extraocular muscles intact. Pupils equally round, reactive to light and accommodation. Neck is supple. There is no jugular venous distention (JVD). CARDIOVASCULAR: S1, S2, irregular rate. He has a grade 2/6 systolic murmur. RESPIRATORY: Chest is clear to auscultation bilaterally. Bilateral equal air entry. ABDOMEN: Soft. Positive bowel sounds. Nontender. No ascites. No hepatosplenomegaly. EXTREMITIES: Patient has a left foot ulcer, which is wrapped in a dressing. He has a right heel ulcer as well, which is wrapped in a dressing. He has an arteriovenous (AV) fistula in the left forearm, which is being used for hemodialysis at this time. CENTRAL NERVOUS SYSTEM (IT RECRUITER): No focal neurological deficit. Power is 5/5 in all extremities. LABORATORY DATA: CBC showed a WBC of 7.1, hemoglobin 8.3, platelets are 86. BMP showed sodium 138, potassium 4.4, chloride 102, bicarbonate 28, BUN 33, creatinine 7.37, calcium 8, magnesium 2.2. MEDICATIONS: Patient's medications were all reviewed by me. ASSESSMENT: 65-year-old male with past medical history of end-stage renal disease on hemodialysis every Wednesday, Wednesday, Wednesday, this admission with severe anemia, status post colonoscopy, which showed mild radiation proctitis and internal hemorrhoids. No active bleeding. Patient also has peripheral vascular disease and left foot osteomyelitis and right heel ulcer. PLAN: 1. Severe anemia. The patient's colonoscopy was negative for any active bleeding. He got blood transfusions during this admission. His hemoglobin is still below target. The patient will get Aranesp with hemodialysis today. 2. Left foot osteomyelitis. The patient is getting daily dressing changes. He has severe peripheral vascular disease and as per podiatry, he might need a left below knee amputation. The patient is pending surgical evaluation for possible below the knee amputation during this admission. 3. Hypertension. Blood pressure is acceptable at this time. Continue metoprolol. 4. History of atrial fibrillation. Patient's anticoagulation was stopped because of gastrointestinal (GI) bleeding. Plan of care was discussed with the hospitalist team, Dr. Williamson.
[2016-09-03] MEDS: VANCOMYCIN HCL 1,000 MG, VIAL MATE ADAPTER 1 EACH in D5W 250 ML IV SCH (14:48)
[2016-09-03] MEDS: CHECK TO SEE IF PATIENT IS RECEIVING DIALYSIS TODAY AND REFER TO THE VANCOMYCIN ORDER XX SCH (14:50)
[2016-09-03 16:00] VITALS: BP 134/63
[2016-09-03 20:00] VITALS: BP 117/58
[2016-09-03 23:52] VITALS: BP 126/59
[2016-09-04 04:00] VITALS: BP 125/61
[2016-09-04] MEDS: SODIUM CHLORIDE 0.9% INJ 10 ML SYR IV SCH ×3 (05:58→22:25)
[2016-09-04 06:29] LABS: INR 1.38
[2016-09-04 06:43] LABS: MEAN CORPUSCULAR HEMOGLOBIN 26.9 pg (27.0-33.0); MEAN CORPUSCULAR HGB CONC 31.1 g/dl (32.0-36.5); MEAN CORPUSCULAR VOLUME 86.4 fl (80.0-96.0); RED CELL DISTRIBUTION WIDTH 20.9 % (11.5-14.5); WHITE BLOOD COUNT 6.3 K/mm3 (4.0-10.0)
[2016-09-04 07:22] LABS: ALBUMIN 2.3 GM/DL (3.2-5.2); ALBUMIN/GLOBULIN RATIO 0.64 (1.00-1.93); CALCIUM LEVEL 7.9 MG/DL (8.8-10.2); CREATININE FOR GFR 5.02 MG/DL (0.70-1.30); DIGOXIN LEVEL 0.9 NG/ML (0.5-2.0); GLOMERULAR FILTRATION RATE 14.9 (>49); MAGNESIUM LEVEL 2.1 MG/DL (1.8-2.4); POTASSIUM SERUM 4.2 MEQ/L (3.5-5.1); TOTAL PROTEIN 5.9 GM/DL (6.4-8.2)
[2016-09-04 08:00] VITALS: BP 140/63
--- NOTE | 2016-09-04 08:55 | REP ---
PORTABLE CHEST: 09/03/2016, 10:49 p.m. CLINICAL HISTORY: Lung congestion. Comparison: 08/28/2016, 05/22/2016. Findings: There is a right jugular central venous catheter with tip in the SVC, unchanged. Cardiomegaly again noted. There is vascular redistribution with engorgement of upper lobe vessels. This is similar to the previous study but vessel margins are somewhat indistinct and I suspect some interstitial edema. In addition, retrocardiac left lower lobe opacity is noted with loss of diaphragmatic margin suggesting infiltrate or atelectasis. Effusion could also contribute to this. I suspect small effusions bilaterally. Some patchy basilar airspace opacity on the right is seen suggesting some infiltrate or edema. The aorta is unchanged. Airway midline. IMPRESSION: 1. Cardiomegaly with vascular redistribution and some interstitial edema. Bibasilar infiltrates or atelectasis suggested. Small effusions are likely. Alveolar edema is not excluded in the right base. Signed by Clemente Kay MD 09/04/2016 06:03 P
[2016-09-04] MEDS: METOPROLOL TART 25 MG TABLET PO SCH ×2 (09:18→22:25)
[2016-09-04] MEDS: POTASSIUM CHLORIDE 10 MEQ SR TABLET PO SCH (09:18)
[2016-09-04] MEDS: SENOKOT S TAB PO SCH ×2 (09:18→22:24)
[2016-09-04] MEDS ORDERED: SODIUM CHLORIDE 0.9% INJ 10 ML SYR IV PRN (09:30)
[2016-09-04 12:00] VITALS: BP 132/60
--- NOTE | 2016-09-04 15:00 | IPN ---
DATE: 09/04/2016 SUBJECTIVE: The patient was seen and examined at the bedside. He does complain of some cough and shortness of breath. He got hemodialysis done yesterday and 2.5 liters of fluid was removed. He tolerated the hemodialysis procedure well. REVIEW OF SYSTEMS: The patient is reporting cough with white colored phlegm and some shortness of breath. He denies any fevers, chills, rigors, chest pain, palpitations. He does report some shortness of breath. He denies any pain in the abdomen, constipation, diarrhea. He does report persistent left lower extremity and right lower extremity ulcers. The rest of the review of systems is negative. OBJECTIVE: VITAL SIGNS: Temperature is 98 degrees Fahrenheit, blood pressure is 140/63, pulse is 72, respiratory rate of 18, saturating 96% on room air. INTAKE AND OUTPUT: There is no urine output recorded. Ultrafiltration from hemodialysis yesterday was 2.5 liters. Weight on the bed scale is 101.9 kg. PHYSICAL EXAMINATION: GENERAL: Patient is awake, alert, and oriented times three, lying in bed. Mild respiratory distress. HEAD AND NECK EXAMINATION: Extraocular muscles intact. Pupils equally round, reactive to light and accommodation. Neck is supple. Mucous membranes are moist. The patient has a triple lumen catheter in the right IJ and looking at his left IJ, it looks like he has elevated jugular venous distention (JVD). CARDIOVASCULAR: S1, S2, regular rate. RESPIRATORY: The patient has diffuse rales and rhonchi all over lungs. Otherwise, there is equal air entry bilaterally. ABDOMEN: Soft. Positive bowel sounds. Nontender. No ascites. No hepatosplenomegaly. EXTREMITIES: Patient has a left foot ulcer, which is wrapped in a dressing. He has a right heel ulcer as well, which is wrapped in a dressing. He has an arteriovenous (AV) fistula in the left forearm. The patient does not have any lower extremity edema. CENTRAL NERVOUS SYSTEM (BLOCKERS SKIVER): No focal neurological deficit. Power is 5/5 in all extremities. PSYCHIATRIC: Normal mood and affect. LABORATORY DATA: CBC showed a WBC of 6.3, hemoglobin 8.5, platelets are 84. INR is 1.38. BMP showed sodium 139, potassium 4.2, chloride 102, bicarbonate 29, BUN 17, creatinine 5.02, calcium 7.9, albumin 2.3. Heparin induced antibody is positive. MEDICATIONS: Patient's medications were all reviewed by me. ASSESSMENT: 65-year-old male with past medical history of end-stage renal disease on hemodialysis every Wednesday, Wednesday, Wednesday. He has been shifted to Wednesday, and Wednesday schedule during this admission. His presentation during this admission was of severe anemia, status post colonoscopy that showed mild radiation proctitis and internal hemorrhoids. No active bleeding. The patient has peripheral vascular disease and he has left foot osteomyelitis as well and right heel ulcer, currently being evaluated by surgery for possible left below knee amputation. Today, the patient is fluid overloaded. PLAN: 1. Shortness of breath and fluid overload. The patient was dialyzed yesterday, but today he is just having rales and rhonchi and significant fluid overload. The patient will get ultrafiltration done again today and I shall try to remove at least 2.5 to 3 liters of fluid as tolerated by his blood pressure. 2. End stage renal disease on hemodialysis. The patient's regular hemodialysis day during this admission is Wednesday, and Wednesday. The patient will get ultrafiltration done today and he will get hemodialysis tomorrow as well. 3. Anemia. The patient's colonoscopy was negative for active bleeding. There was just proctitis. His hemoglobin at this time is 8.5. He is getting Aranesp with hemodialysis. Continue current dose. 4. History of atrial fibrillation. The patient's anticoagulation is on hold because of gastrointestinal (GI) bleeding. 5. 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 The patient will be dialyzed without heparin from now on. Plan of care was discussed with the hospitalist team, Dr. Ellis. Dialysis center was informed due to ultrafiltration today.
[2016-09-04 17:25] VITALS: BP 127/59
[2016-09-04] MEDS: VANCOMYCIN HCL 1,000 MG, VIAL MATE ADAPTER 1 EACH in D5W 250 ML IV SCH (17:27)
[2016-09-04] MEDS: CHECK TO SEE IF PATIENT IS RECEIVING DIALYSIS TODAY AND REFER TO THE VANCOMYCIN ORDER XX SCH (17:27)
--- NOTE | 2016-09-04 18:33 | IPNPDOC ---
Assessment/Plan Date Seen The patient was seen on 09/04/16. Problems Problems: (1) Acute respiratory distress Status: Acute Problem Text: - Sign of fluid overload (09/04/16); bilateral ronchi, , +JVD, + CXR. Had HD on 09/03/16. will get ultrafiltration today. (2) Wound of left lower extremity Status: Chronic Response to Treatment: Worse Problem Text: surgery has been consulted. Surgery will determine if pt will require amputation. Will request record from Dr. Dela Cruz and [facility] where pt had vascular study performed for his left lower extremity. (3) Thrombocytopenia Status: Acute Response to Treatment: Worse Problem Text: + HIT antibody. Heparin flash discontinued. (4) End stage renal disease on dialysis Status: Chronic Response to Treatment: Stable Problem Text: Inpatient dialysis date is , Wed. (5) A-fib Status: Chronic Response to Treatment: Stable Problem Text: Metoprolol tartrate 25mg PO BID. Rate controlled. Possible amputation. Anticoagulation on hold. (6) GI (gastrointestinal bleed) Status: Resolved Plan / VTE VTE Prophylaxis Ordered?: Yes (ESPERANZA) Subjective CC/HPI The patient is a 65-year-old male admitted with a reason for visit of Sepsis, Anemia. Events since last encounter Pt starts having worsening productive cough in the last 24 hours. Sputum is white. Pain at left foot still persist but it is manageable with pain medication. General: Reports: Fatigue Constitutional: Denies: Chills, Fever Pulmonary: Reports: Cough, Dyspnea Cardiovascular: Denies: Chest Pain, Palpitations Gastrointestinal: Denies: Abdominal Pain, Diarrhea, Nausea, Vomiting Objective Eye Exam: : PERRLA ENT Exam: : Atraumatic Neck Exam: : JVD Chest Exam: : RhonchiNo: Wheezing Heart Exam: : Irregular Rhythm: Normal S1: Normal S2 Abdomen Exam: : Normal bowel sounds: Soft: Tenderness Extremity Exam: : Other (+ left foot wound covered with dressing. )No: Clubbing , Cyanosis Vital Signs I&O Vital Sign - Last 24 Hours 09/03/16 09/03/16 09/03/16 09/03/16 20:00 20:00 21:15 23:52 Temp 97.8 98.1 Pulse 73 73 64 Resp 20 20 B/P 117/58 117/58 126/59 Pulse Ox 98 98 O2 Delivery Room Air Room Air Room Air 09/04/16 09/04/16 09/04/16 09/04/16 00:10 04:00 08:00 08:00 Temp 97.8 98.0 Pulse 99 72 Resp 18 18 B/P 125/61 140/63 Pulse Ox 71 96 O2 Delivery Room Air Room Air Room Air Room Air 09/04/16 09/04/16 09/04/16 09:18 12:00 17:25 Temp 97.2 96.7 Pulse 72 62 64 Resp 18 18 B/P 140/63 132/60 127/59 Pulse Ox 97 100 O2 Delivery Room Air Room Air I&O- Last 24 Hours up to 6 AM 09/04/16 06:00 Intake Total 1330 ml Output Total 2500 ml Balance -1170 ml Laboratory Data Labs 24H Laboratory Tests 2 09/04/16 05:59: Blood Urea Nitrogen 17, Creatinine 5.02H, Sodium Level 139, Potassium Level 4.2 , Chloride Level 102, Carbon Dioxide Level 29, Calcium Level 7.9L, Aspartate Amino Transf (AST/SGOT) 117H, Alanine Aminotransferase (ALT/SGPT) 242H, Alkaline Phosphatase 188H, Total Bilirubin 1.0, Total Protein 5.9L, Albumin 2.3L , Albumin/Globulin Ratio 0.64L, Anion Gap 8, C-Reactive Protein, Quantitative 6.01H, Digoxin Level 0.9, Glomerular Filtration Rate 14.9L, Magnesium Level 2.1 , Prothromb Time International Ratio 1.38, Prothrombin Time 17.1H CBC/BMP Laboratory Tests 09/04/16 05:59 Calcium Level 7.9 L, Aspartate Amino Transf (AST/SGOT) 117 H, Alanine Aminotransferase (ALT/SGPT) 242 H, Alkaline Phosphatase 188 H, Total Bilirubin 1.0, Total Protein 5.9 L, Albumin 2.3 L, Red Blood Count 3.18 L, Mean Corpuscular Volume 86.4, Mean Corpuscular Hemoglobin 26.9 L, Mean Corpuscular Hemoglobin Concent 31.1 L, Red Cell Distribution Width 20.9 H Medications Medications Current Medications Medications Dose Ordered Sig/Prem Route PRN Reason Start Time Stop Time Status Last Admin Dose Admin Acetaminophen 650 mg Q4HP PRN PO MILD PAIN OR FEVER 08/28/16 16:30 09/30/16 16:29 09/01/16 00:55 650 MG Darbepoetin Curtis 200 mcg HD IV 09/02/16 17:45 10/02/16 17:44 Diphenhydramine HCl Apply to affected area ... BID PRN TOP ITCHING 08/29/16 02:15 09/30/16 02:14 Metoprolol Tartrate 25 mg BID PO 08/29/16 09:00 09/30/16 08:59 09/04/16 09:18 25 MG Non-Formulary Medication DAILY@16 XX 09/03/16 16:00 10/03/16 15:59 09/04/16 17:27 1 Ondansetron HCl 4 mg Q6HP PRN IV NAUSEA OR VOMITING 08/28/16 16:30 09/30/16 16:29 Potassium Chloride 20 meq DAILY PO 09/01/16 09:00 10/01/16 08:59 09/04/16 09:18 20 MEQ Senna/Docusate Sodium 1 tab BID PO 08/28/16 21:00 09/30/16 20:59 09/04/16 09:18 1 TAB Sodium Chloride 2 spray Q2HP PRN NA NASAL DRYNESS 09/02/16 09:30 10/02/16 09:29 Sodium Chloride 10 ml ASDIRECTED PRN IV SEE LABEL COMMENTS 09/04/16 09:30 10/04/16 09:29 Sodium Chloride 10 ml SLF IV 09/04/16 14:00 10/04/16 13:59 Vancomycin HCl/IV Miscellaneous Supplies/Dextrose 270 ml @ 270 mls/hr HD IV 09/03/16 07:00 09/10/16 06:59 09/04/16 17:27 270 MLS/HR Allergies Coded Allergies: Penicillins (Verified Allergy, Mild, RASH, 08/28/16) VANESSA TROTTER DO Sep 04, 2016 18:33
--- NOTE | 2016-09-04 18:50 | ECGEPIP ---
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
--- NOTE | 2016-09-04 18:54 | ECGEPIP ---
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
--- NOTE | 2016-09-04 19:05 | ECGEPIP ---
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
[2016-09-04 20:55] VITALS: BP 129/60
[2016-09-04] MEDS: BENZONATATE 100 MG CAP PO SCH (22:25)
[2016-09-04] MEDS: FLUTICASONE PROP 0.05% NASAL SPRAY 16 GM (FLONASE) SCH (22:25)
[2016-09-04] MEDS: diphenhydrAMINE CREAM 30GM TOP PRN (23:04)
[2016-09-04 23:34] VITALS: BP 122/59
[2016-09-05 05:13] VITALS: BP 128/60
[2016-09-05] MEDS: SODIUM CHLORIDE 0.9% INJ 10 ML SYR IV SCH ×3 (05:25→21:15)
[2016-09-05 06:13] LABS: CALCIUM LEVEL 8.3 MG/DL (8.8-10.2); CREATININE FOR GFR 6.66 MG/DL (0.70-1.30); GLOMERULAR FILTRATION RATE 10.8 (>49); POTASSIUM SERUM 4.4 MEQ/L (3.5-5.1)
[2016-09-05 06:28] LABS: DIGOXIN LEVEL 0.8 NG/ML (0.5-2.0)
[2016-09-05 06:49] LABS: MEAN CORPUSCULAR HGB CONC 30.9 g/dl (32.0-36.5); MEAN CORPUSCULAR VOLUME 87.6 fl (80.0-96.0); RED CELL DISTRIBUTION WIDTH 19.6 % (11.5-14.5); WHITE BLOOD COUNT 7.7 K/mm3 (4.0-10.0)
[2016-09-05] MEDS: BENZONATATE 100 MG CAP PO SCH ×3 (06:53→21:14)
[2016-09-05] MEDS: SENOKOT S TAB PO SCH ×2 (06:53→21:14)
[2016-09-05] MEDS: POTASSIUM CHLORIDE 10 MEQ SR TABLET PO SCH (06:53)
[2016-09-05] MEDS: FLUTICASONE PROP 0.05% NASAL SPRAY 16 GM (FLONASE) SCH ×2 (06:54→21:14)
[2016-09-05 07:42] VITALS: BP 129/58
[2016-09-05] MEDS: METOPROLOL TART 25 MG TABLET PO SCH ×2 (09:00→21:14)
[2016-09-05] MEDS: ACETAMINOPHEN TAB 650MG DOSE (2X325MG) PO PRN (13:20)
[2016-09-05 15:51] VITALS: BP 141/67
--- NOTE | 2016-09-05 16:02 | IPNPDOC ---
Assessment/Plan Date Seen The patient was seen on 09/05/16. Problems Problems: (1) Acute respiratory distress Status: Acute Problem Text: - Sign of fluid overload (09/04/16); bilateral ronchi, , +JVD, + CXR. Had ultrafiltration yesterday and HD today. Symptoms showed significant improvement after fluid removal. (2) Wound of left lower extremity Status: Chronic Response to Treatment: Worse Problem Text: surgery has been consulted. Surgery will determine if pt will require amputation. Will request record from Dr. Dela Cruz and [facility] where pt had vascular study performed for his left lower extremity. (3) Thrombocytopenia Status: Acute Response to Treatment: Worse Problem Text: + HIT antibody. Heparin flash discontinued. (4) End stage renal disease on dialysis Status: Chronic Response to Treatment: Stable Problem Text: Inpatient dialysis date is , Wed. (5) A-fib Status: Chronic Response to Treatment: Stable Problem Text: Metoprolol tartrate 25mg PO BID. Rate controlled. Possible amputation. Anticoagulation on hold. (6) GI (gastrointestinal bleed) Status: Resolved Plan / VTE VTE Prophylaxis Ordered?: Yes (ESPERANZA) Subjective CC/HPI The patient is a 65-year-old male admitted with a reason for visit of Sepsis, Anemia. Events since last encounter Coughing and shortness of breath are improved after ultrafiltration and hemodialysis in the last 24 hours. Pain at left lower extremity is controlled. No overnight event is reported. Objective Eye Exam: : PERRLA ENT Exam: : Atraumatic Neck Exam: : JVD Chest Exam: : RhonchiNo: Wheezing Heart Exam: : Irregular Rhythm: Normal S1: Normal S2 Abdomen Exam: : Normal bowel sounds: Soft: Tenderness Extremity Exam: : Other (+ left foot wound covered with dressing. )No: Clubbing , Cyanosis Vital Signs I&O Vital Sign - Last 24 Hours 09/04/16 09/04/16 09/04/16 09/04/16 17:25 20:20 20:55 22:25 Temp 96.7 98.5 Pulse 64 91 91 Resp 18 18 B/P 127/59 129/60 129/60 Pulse Ox 100 99 O2 Delivery Room Air Room Air Room Air 09/04/16 09/05/16 09/05/16 09/05/16 23:34 00:20 05:13 07:42 Temp 97.7 97.9 98.6 Pulse 91 66 71 Resp 18 18 18 B/P 122/59 128/60 129/58 Pulse Ox 95 100 100 O2 Delivery Room Air Room Air Room Air Room Air 09/05/16 09/05/16 08:00 15:51 Temp 98.0 Pulse 71 Resp 18 B/P 141/67 Pulse Ox 99 O2 Delivery Room Air Room Air I&O- Last 24 Hours up to 6 AM 09/05/16 06:00 Intake Total 1300 ml Output Total 2500 ml Balance -1200 ml Laboratory Data Labs 24H Laboratory Tests 2 09/05/16 05:30: Anion Gap 8, C-Reactive Protein, Quantitative 6.82H, Blood Urea Nitrogen 25H, Creatinine 6.66H, Sodium Level 138, Potassium Level 4.4, Chloride Level 101, Carbon Dioxide Level 29, Calcium Level 8.3L, Digoxin Level 0.8, Glomerular Filtration Rate 10.8L CBC/BMP Laboratory Tests 09/05/16 05:30 Calcium Level 8.3 L, Red Blood Count 3.36 L, Mean Corpuscular Volume 87.6, Mean Corpuscular Hemoglobin 27.0, Mean Corpuscular Hemoglobin Concent 30.9 L, Red Cell Distribution Width 19.6 H Medications Medications Current Medications Medications Dose Ordered Sig/Prem Route PRN Reason Start Time Stop Time Status Last Admin Dose Admin Acetaminophen 650 mg Q4HP PRN PO MILD PAIN OR FEVER 08/28/16 16:30 09/30/16 16:29 09/05/16 13:20 650 MG Benzonatate 100 mg TID PO 09/04/16 21:00 10/04/16 20:59 09/05/16 06:53 100 MG Darbepoetin Curtis 200 mcg HD IV 09/02/16 17:45 10/02/16 17:44 Diphenhydramine HCl Apply to affected area ... BID PRN TOP ITCHING 08/29/16 02:15 09/30/16 02:14 09/04/16 23:04 1 DOSE Fluticasone Propionate 1 spray BID NA 09/04/16 21:00 10/04/16 20:59 09/05/16 06:54 1 SPRAY Metoprolol Tartrate 25 mg BID PO 08/29/16 09:00 09/30/16 08:59 09/04/16 22:25 25 MG Non-Formulary Medication DAILY@16 XX 09/03/16 16:00 10/03/16 15:59 09/04/16 17:27 1 Ondansetron HCl 4 mg Q6HP PRN IV NAUSEA OR VOMITING 08/28/16 16:30 09/30/16 16:29 Potassium Chloride 20 meq DAILY PO 09/01/16 09:00 10/01/16 08:59 09/05/16 06:53 20 MEQ Senna/Docusate Sodium 1 tab BID PO 08/28/16 21:00 09/30/16 20:59 09/05/16 06:53 1 TAB Sodium Chloride 2 spray Q2HP PRN NA NASAL DRYNESS 09/02/16 09:30 10/02/16 09:29 Sodium Chloride 10 ml ASDIRECTED PRN IV SEE LABEL COMMENTS 09/04/16 09:30 10/04/16 09:29 Sodium Chloride 10 ml SLF IV 09/04/16 14:00 10/04/16 13:59 09/05/16 13:19 10 ML Vancomycin HCl/IV Miscellaneous Supplies/Dextrose 270 ml @ 270 mls/hr HD IV 09/03/16 07:00 09/10/16 06:59 09/04/16 17:27 270 MLS/HR Allergies Coded Allergies: Penicillins (Verified Allergy, Mild, RASH, 08/28/16) VANESSA TROTTER DO Sep 05, 2016 16:02
[2016-09-05] MEDS: VANCOMYCIN HCL 1,000 MG, VIAL MATE ADAPTER 1 EACH in D5W 250 ML IV SCH (16:26)
[2016-09-05] MEDS: CHECK TO SEE IF PATIENT IS RECEIVING DIALYSIS TODAY AND REFER TO THE VANCOMYCIN ORDER XX SCH (16:26)
[2016-09-05 19:40] VITALS: BP 117/58
[2016-09-05] MEDS: diphenhydrAMINE CREAM 30GM TOP PRN (21:14)
[2016-09-05 23:52] VITALS: BP 126/60
[2016-09-06 05:03] VITALS: BP 128/60
[2016-09-06 05:51] LABS: BASO % 0.1 % (0.0-1.0); EOS # 0.1 K/mm3 (0.0-0.50); EOS % 1.4 % (0.0-3.0); LARGE UNSTAINED CELL # 0.1 K/mm3 (0.0-0.4); LARGE UNSTAINED CELL % 1.1 % (0.0-4.0); LYMPH % 13.1 % (24.0-44.0); MEAN CORPUSCULAR HEMOGLOBIN 26.2 pg (27.0-33.0); MEAN CORPUSCULAR HGB CONC 30.2 g/dl (32.0-36.5); MEAN CORPUSCULAR VOLUME 86.8 fl (80.0-96.0); MONO # 0.4 K/mm3 (0.0-0.8); MONO % 6.1 % (0.0-5.0); NEUTROPHILS # 5.4 K/mm3 (1.8-7.7); NEUTROPHILS % 78.2 % (36.0-66.0); RED CELL DISTRIBUTION WIDTH 20.3 % (11.5-14.5); WHITE BLOOD COUNT 6.9 K/mm3 (4.0-10.0)
[2016-09-06 05:53] LABS: PLATELET COUNT, AUTOMATED 95 k/mm3 (150-450)
[2016-09-06] MEDS: SODIUM CHLORIDE 0.9% INJ 10 ML SYR IV SCH ×3 (06:06→21:34)
[2016-09-06] MEDS: diphenhydrAMINE CREAM 30GM TOP PRN (06:06)
[2016-09-06 06:27] LABS: CALCIUM LEVEL 8.7 MG/DL (8.8-10.2); CREATININE FOR GFR 4.51 MG/DL (0.70-1.30); GLOMERULAR FILTRATION RATE 16.9 (>49); POTASSIUM SERUM 4.1 MEQ/L (3.5-5.1)
[2016-09-06] MEDS: ACETAMINOPHEN TAB 650MG DOSE (2X325MG) PO PRN ×3 (06:30→18:39)
[2016-09-06 08:00] VITALS: BP 137/68
[2016-09-06] MEDS: BENZONATATE 100 MG CAP PO SCH ×3 (08:37→21:31)
[2016-09-06] MEDS: METOPROLOL TART 25 MG TABLET PO SCH ×2 (08:37→21:31)
[2016-09-06] MEDS: POTASSIUM CHLORIDE 10 MEQ SR TABLET PO SCH (08:37)
[2016-09-06] MEDS: SENOKOT S TAB PO SCH ×2 (08:38→21:00)
[2016-09-06] MEDS: FLUTICASONE PROP 0.05% NASAL SPRAY 16 GM (FLONASE) SCH ×2 (08:41→21:31)
[2016-09-06 11:51] VITALS: BP 146/67
--- NOTE | 2016-09-06 14:15 | IPN ---
DATE: 09/05/2016 Mr. Fernandez is seen this morning during hemodialysis. He was initially admitted with severe anemia and rectal bleeding. He is also known to have osteomyelitis of his left foot following amputation of big toe. [id number] amputation has been recommended by podiatry. The patient has been seen by Dr. Cristian Burns. Prior to this, he was seen by vascular surgery due to generalized vascular disease. At present, he has no fever or chills. His hemoglobin has remained stable since initial transfusion of multiple units of packed red blood cells (RBCs). The patient denies any nausea or vomiting. He did have some dyspnea and underwent ultrafiltration yesterday with three liters of extra fluid removal. REVIEW OF SYSTEMS: Otherwise unremarkable. PHYSICAL EXAMINATION: GENERAL: On physical examination, the patient is awake, alert, and at his baseline mentation. VITAL SIGNS: Temperature 98.6 degrees Fahrenheit, heart rate 70 per minute, and respiratory rate 18 per minute. Blood pressure 129/58 mmHg and oxygen saturation 100% on room air. He has a central line in place in right internal jugular vein. His neck veins are moderately distended at least. He has no oral thrush or ulcers. Ears, nose and throat are unremarkable. Neck veins are moderately distended. There is no thyroid enlargement and trachea is in midline. CARDIOVASCULAR: Heart examination reveals irregular rhythm. There is no pericardial friction rub. He has no leg edema. LUNGS: Clear to auscultation bilaterally. ABDOMEN: Soft, nontender, and without any palpable organomegaly. Bowel sounds are normal. EXTREMITIES: No cyanosis or clubbing. His left foot is wrapped in a dressing. Left arm arteriovenous (AV) fistula is patent. SKIN: No generalized rash or ulcers. NEUROLOGIC: He is awake, alert, and without a focal deficit. LABORATORY DATA: Today's laboratories show WBC count 7.7, hemoglobin 9.1, and hematocrit 29.5. Platelets 105. Sodium 138 and potassium 4.4. BUN 25 and creatinine 6.66. Calcium level is 8.3. PROBLEMS: 1. End-stage renal disease. The patient is undergoing hemodialysis at present. He is tolerating his dialysis treatment very well. 2. Difficulty breathing. He did get volume overload and underwent ultrafiltration yesterday. His volume status is still moderately decompensated. We are going to remove at least four liters of fluid today as tolerated. He will need to stay on oral fluid restriction of 1500 mL per day. 3. Acute gastrointestinal (GI) bleed and acute blood loss anemia. Since initial transfusions, he has remained stable without any further blood loss. We will continue to monitor him on a daily basis. 4. Left foot ischemia and gangrene. The patient is in need for possible left [id number] amputation. We will wait for a surgical decision. 5. Diabetes. His diabetes has been reasonably well-controlled and he will continue with the current management.
[2016-09-06 16:00] VITALS: BP 131/66
[2016-09-06] MEDS: CHECK TO SEE IF PATIENT IS RECEIVING DIALYSIS TODAY AND REFER TO THE VANCOMYCIN ORDER XX SCH (16:00)
--- NOTE | 2016-09-06 16:11 | IPNPDOC ---
Assessment/Plan Date Seen The patient was seen on 09/06/16. Problems Problems: (1) Wound of left lower extremity Status: Chronic Response to Treatment: Worse Problem Text: surgery has been consulted. Surgery on 09/08/16 Will request record from Dr. Dela Cruz and [facility] where pt had vascular study performed for his left lower extremity. (2) Acute respiratory distress Status: Acute Problem Text: - Sign of fluid overload (09/04/16); bilateral ronchi, , +JVD, + CXR. Symptoms showed significant improvement after fluid removal. (3) Thrombocytopenia Status: Acute Response to Treatment: Worse Problem Text: + HIT antibody. Heparin flash discontinued. (4) End stage renal disease on dialysis Status: Chronic Response to Treatment: Stable Problem Text: Inpatient dialysis date is , Wed. (5) A-fib Status: Chronic Response to Treatment: Stable Problem Text: Metoprolol tartrate 25mg PO BID. Rate controlled. Possible amputation. Anticoagulation on hold. (6) GI (gastrointestinal bleed) Status: Resolved Plan / VTE VTE Prophylaxis Ordered?: Yes (ESPERANZA) Subjective CC/HPI The patient is a 65-year-old male admitted with a reason for visit of Sepsis, Anemia. Events since last encounter Pt states his breathing is improving. Cough frequency and severity have improved after dialysis. No overnight event is reported. Objective Eye Exam: : PERRLA ENT Exam: : Atraumatic Neck Exam: : JVD Chest Exam: : RhonchiNo: Wheezing Heart Exam: : Irregular Rhythm: Normal S1: Normal S2 Abdomen Exam: : Normal bowel sounds: Soft: Tenderness Extremity Exam: : Other (+ left foot wound covered with dressing. )No: Clubbing , Cyanosis Vital Signs I&O Vital Sign - Last 24 Hours 09/05/16 09/05/16 09/05/16 09/05/16 19:40 20:30 21:14 23:52 Temp 97.7 97.6 Pulse 70 70 71 Resp 18 18 B/P 117/58 117/58 126/60 Pulse Ox 99 98 O2 Delivery Room Air Room Air Room Air 09/06/16 09/06/16 09/06/16 09/06/16 00:30 05:03 08:00 08:00 Temp 98.5 98.3 Pulse 73 69 Resp 18 18 B/P 128/60 137/68 Pulse Ox 94 99 O2 Delivery Room Air Room Air Room Air Room Air 09/06/16 09/06/16 08:37 11:51 Temp 98.1 Pulse 69 65 Resp 18 B/P 137/68 146/67 Pulse Ox 99 O2 Delivery Room Air I&O- Last 24 Hours up to 6 AM 09/06/16 06:00 Intake Total 600 ml Output Total 3500 ml Balance -2900 ml Laboratory Data Labs 24H Laboratory Tests 2 09/06/16 05:35: Anion Gap 6L, White Blood Count 6.9, Red Blood Count 3.41L, Hemoglobin 8.9L, Hematocrit 29.6L, Mean Corpuscular Volume 86.8, Mean Corpuscular Hemoglobin 26.2L, Mean Corpuscular Hemoglobin Concent 30.2L, Red Cell Distribution Width 20.3H, Platelet Count 95L, Neutrophils (%) (Auto) 78.2H, Lymphocytes (%) (Auto) 13.1L, Monocytes (%) (Auto) 6.1H, Eosinophils (%) (Auto) 1.4, Basophils (%) ( Auto) 0.1, Neutrophils # (Auto) 5.4, Lymphocytes # (Auto) 1.0L, Monocytes # ( Auto) 0.4, Eosinophils # (Auto) 0.1, Basophils # (Auto) 0.0, Blood Urea Nitrogen 15, Creatinine 4.51H, Sodium Level 139, Potassium Level 4.1, Chloride Level 102, Carbon Dioxide Level 31, Calcium Level 8.7L, Glomerular Filtration Rate 16.9L, Large Unclassified Cells # 0.1, Large Unclassified Cells % 1.1 CBC/BMP Laboratory Tests 09/06/16 05:35 Calcium Level 8.7 L, Red Blood Count 3.41 L, Mean Corpuscular Volume 86.8, Mean Corpuscular Hemoglobin 26.2 L, Mean Corpuscular Hemoglobin Concent 30.2 L, Red Cell Distribution Width 20.3 H, Neutrophils (%) (Auto) 78.2 H, Lymphocytes (%) ( Auto) 13.1 L, Monocytes (%) (Auto) 6.1 H, Eosinophils (%) (Auto) 1.4, Basophils (%) (Auto) 0.1, Neutrophils # (Auto) 5.4, Lymphocytes # (Auto) 1.0 L, Monocytes # (Auto) 0.4, Eosinophils # (Auto) 0.1, Basophils # (Auto) 0.0 Medications Medications Current Medications Medications Dose Ordered Sig/Prem Route PRN Reason Start Time Stop Time Status Last Admin Dose Admin Acetaminophen 650 mg Q4HP PRN PO MILD PAIN OR FEVER 08/28/16 16:30 09/30/16 16:29 09/06/16 14:08 650 MG Benzonatate 100 mg TID PO 09/04/16 21:00 10/04/16 20:59 09/06/16 08:37 100 MG Darbepoetin Curtis 200 mcg HD IV 09/02/16 17:45 10/02/16 17:44 Diphenhydramine HCl Apply to affected area ... BID PRN TOP ITCHING 08/29/16 02:15 09/30/16 02:14 09/06/16 06:06 1 DOSE Fluticasone Propionate 1 spray BID NA 09/04/16 21:00 10/04/16 20:59 09/06/16 08:41 1 SPRAY Metoprolol Tartrate 25 mg BID PO 08/29/16 09:00 09/30/16 08:59 09/06/16 08:37 25 MG Non-Formulary Medication DAILY@16 XX 09/03/16 16:00 10/03/16 15:59 09/05/16 16:26 1 Ondansetron HCl 4 mg Q6HP PRN IV NAUSEA OR VOMITING 08/28/16 16:30 09/30/16 16:29 Potassium Chloride 20 meq DAILY PO 09/01/16 09:00 10/01/16 08:59 09/06/16 08:37 20 MEQ Senna/Docusate Sodium 1 tab BID PO 08/28/16 21:00 09/30/16 20:59 09/05/16 21:14 1 TAB Sodium Chloride 2 spray Q2HP PRN NA NASAL DRYNESS 09/02/16 09:30 10/02/16 09:29 Sodium Chloride 10 ml ASDIRECTED PRN IV SEE LABEL COMMENTS 09/04/16 09:30 10/04/16 09:29 Sodium Chloride 10 ml SLF IV 09/04/16 14:00 10/04/16 13:59 09/06/16 14:02 10 ML Vancomycin HCl/IV Miscellaneous Supplies/Dextrose 270 ml @ 270 mls/hr HD IV 09/03/16 07:00 09/10/16 06:59 09/05/16 16:26 270 MLS/HR Allergies Coded Allergies: Penicillins (Verified Allergy, Mild, RASH, 08/28/16) VANESSA TROTTER DO Sep 06, 2016 16:11
[2016-09-06 19:53] VITALS: BP 136/65
[2016-09-06] MEDS: SODIUM CHLORIDE NASAL 0.65% SPRAY BTL (OCEAN) PRN (21:30)
[2016-09-07 00:40] VITALS: BP 128/60
[2016-09-07] MEDS: ACETAMINOPHEN TAB 650MG DOSE (2X325MG) PO PRN ×2 (02:18→18:30)
[2016-09-07 04:50] VITALS: BP 146/69
[2016-09-07] MEDS: SODIUM CHLORIDE 0.9% INJ 10 ML SYR IV SCH ×3 (05:46→20:42)
[2016-09-07] MEDS: BENZONATATE 100 MG CAP PO SCH ×3 (05:47→20:41)
[2016-09-07] MEDS: METOPROLOL TART 25 MG TABLET PO SCH ×2 (05:47→20:41)
[2016-09-07] MEDS: POTASSIUM CHLORIDE 10 MEQ SR TABLET PO SCH (05:47)
[2016-09-07 06:26] LABS: CALCIUM LEVEL 8.2 MG/DL (8.8-10.2); CREATININE FOR GFR 6.1 MG/DL (0.70-1.30); GLOMERULAR FILTRATION RATE 11.9 (>49); POTASSIUM SERUM 4.6 MEQ/L (3.5-5.1)
[2016-09-07 06:34] LABS: BASO % 0.1 % (0.0-1.0); EOS # 0.1 K/mm3 (0.0-0.50); EOS % 2.1 % (0.0-3.0); LARGE UNSTAINED CELL # 0.1 K/mm3 (0.0-0.4); LARGE UNSTAINED CELL % 1.1 % (0.0-4.0); LYMPH # 1.1 K/mm3 (1.5-4.5); LYMPH % 16.9 % (24.0-44.0); MEAN CORPUSCULAR HEMOGLOBIN 26.3 pg (27.0-33.0); MEAN CORPUSCULAR HGB CONC 30.8 g/dl (32.0-36.5); MEAN CORPUSCULAR VOLUME 85.5 fl (80.0-96.0); MONO # 0.4 K/mm3 (0.0-0.8); MONO % 5.6 % (0.0-5.0); NEUTROPHILS # 4.8 K/mm3 (1.8-7.7); NEUTROPHILS % 74.2 % (36.0-66.0); PLATELET COUNT, AUTOMATED 122 k/mm3 (150-450); RED CELL DISTRIBUTION WIDTH 20.2 % (11.5-14.5); WHITE BLOOD COUNT 6.4 K/mm3 (4.0-10.0)
[2016-09-07 07:15] VITALS: BP 125/58
[2016-09-07] MEDS: SENOKOT S TAB PO SCH ×2 (09:00→20:43)
[2016-09-07] MEDS: FLUTICASONE PROP 0.05% NASAL SPRAY 16 GM (FLONASE) SCH ×2 (10:12→20:41)
[2016-09-07 12:00] VITALS: BP 127/60
--- NOTE | 2016-09-07 14:29 | IPN ---
DATE: 09/06/2016 Mr. Fernandez is seen this morning on his bedside. He is feeling well and denies any dyspnea, chest pain, nausea or vomiting. He did have hemodialysis yesterday which he tolerated very well. We removed 4 liters of fluid. On physical examination, temperature 98.3 degrees Fahrenheit, heart rate 70 per minute and respiratory rate 18 per minute. Blood pressure 137/68 mmHg and oxygen saturation 99% on room air. His pupils are equal and reactive to light and sclera is anicteric. Ears, nose and throat are unremarkable. Trachea is midline and there is no thyroid enlargement. He has a central line in right internal jugular vein. His neck veins are mildly distended. Heart sounds are regular and without a pericardial friction rub. Lungs have good bilateral air entry and no wheezing at present. He does have bibasilar rales. Abdomen is soft and nontender. Bowel sounds are normal and there is no palpable organomegaly. Extremities have no cyanosis or clubbing. Left arm AV fistula is patent. Left foot is wrapped in a dressing. Neurologically, he is awake and alert and without a focal deficit. Skin has no rash or ulcers. Today's labs show WBC count 6.9, hemoglobin 8.9 and hematocrit 29.6. Platelets 95. Sodium 139 and potassium 4.1. BUN is 15 and creatinine 4.51. Calcium level 8.7. PROBLEMS: 1. Shortness of breath. The patient did have shortness of breath over the weekend. He was ultra filtrated on Wednesday and had regular hemodialysis yesterday. His volume status is now reasonable. We will dialyze him again tomorrow and get him back on his regular schedule. We will try to remove about 3 liters of fluid with next hemodialysis. 2. End-stage renal disease. The patient will be dialyzed again tomorrow and will get him back on his regular schedule of Wednesday, Wednesday and Wednesday. 3. Rectal bleeding and acute blood loss anemia. His bleeding has stopped and anemia is now stable. The patient is being treated with Aranesp during hemodialysis. His last dose was given on 09/01/2016. 4. Left foot osteomyelitis and gangrene. The patient is in need for [id number] amputation. Will discuss with surgery about further plans. At this point if his surgery is not going to be performed during this hospitalization then the patient probably should be discharged to home. 5. Hypertension. Blood pressure is reasonably well-controlled on current antihypertensive meds. 6. Diabetes. Diabetes is also very well controlled on current management.
[2016-09-07] MEDS: CHECK TO SEE IF PATIENT IS RECEIVING DIALYSIS TODAY AND REFER TO THE VANCOMYCIN ORDER XX SCH (16:00)
[2016-09-07] MEDS: VANCOMYCIN HCL 1,000 MG, VIAL MATE ADAPTER 1 EACH in D5W 250 ML IV SCH (18:13)
[2016-09-07 20:21] VITALS: BP 122/60
[2016-09-08] VITALS (11 sets, daily range): BP systolic 109–156; BP diastolic 53–67
--- NOTE | 2016-09-08 04:06 | CR ---
DATE OF CONSULTATION: 09/04/2016 REASON FOR CONSULTATION: Gangrene left foot. HISTORY OF PRESENT ILLNESS: The patient is a 65-year-old man with a history of end-stage renal disease. He has chronic anemia and has a history of atrial fibrillation. He has longstanding hypertension. He had developed ischemic changes in the left great toe. He underwent an amputation of the left great toe by Dr. Dela Cruz on or about 05/22. Unfortunately, the wound did not heal well and over the ensuing time period he has had progressive gangrene of the left toes and distal foot. He reportedly was seen by vascular surgery in [place] where apparently it was found that there was nothing that could be offered. A below-knee amputation was recommended. The patient declined at that time. He was admitted on the 28 of August with a history of rectal bleeding and marked anemia. He has marked gangrenous changes of his distal left foot. He was transfused. He has undergone endoscopic evaluation to assess the cause of his bleeding. These issues are now stable. He is continuing his usual hemodialysis. He was seen by Dr. Dela Cruz, who also recommended a below-knee amputation. I have now been consulted to consider a below-knee amputation on the left. ALLERGIES: The patient reports an allergy to PENICILLIN. MEDICATIONS: His medications are as listed in the medical record. SURGICAL HISTORY: Includes an arteriovenous fistula in his left arm. He has had cataract surgery. He underwent his left great toe amputation. MEDICAL HISTORY: Significant for his chronic renal failure. He has a history of atrial fibrillation and remains on anticoagulation. He has hypertension. He has peripheral vascular disease. He has a history of hyperlipidemia. He has a history of prostate cancer and is status post radiation therapy some 10 years ago. SOCIAL HISTORY: The patient is . He does not smoke nor drink. FAMILY HISTORY: Noncontributory. REVIEW OF SYSTEMS: Reveals no history of chest pain or shortness of breath. He denied any injury of his foot. Remainder of the review of systems is not contributory. PHYSICAL EXAMINATION: Reveals a very pleasant man lying quietly in the hospital bed. He appears older than his stated age of 65 years. He is alert and oriented. Sclerae are anicteric. Mucous membranes are moist. Heart exam shows an irregular rhythm. The lungs are clear. The abdomen is soft and nontender. Examination of the lower extremities reveals that the left foot has a large dressing on the distal portion. He has a number of small superficial spots on the toes of his right foot, which may represent very superficial eschars. I do not feel any palpable pulses in either foot. I cannot feel his popliteal pulses on either side as well. Despite this, he does have warm lower extremities. The left foot dressing is removed and shows extensive gangrene of the distal foot. His first toe is absent and the end of the metatarsal was protruding from the wound and is dry and necrotic. The 2nd through 4th toes are all clearly gangrenous and mummified. The 4th toe has a little bit of moist desquamation. There is a lot of soft tissue loss at the distal end of his foot. IMPRESSION: 1. Extensive gangrenous changes of the toes and distal foot on the left. 2. Multiple other medical problems as detailed in the record. RECOMMENDATIONS: At this point, there is clearly no opportunity for a transmetatarsal amputation given the degree of gangrene of his distal foot. I believe a below-knee amputation would be appropriate. There is certainly no guarantee that his below-knee amputation will heal, but I suspect given the warmth of his foot and the slow progress of his progressive gangrene that he will have adequate circulation to heal a below-knee amputation. I advised the patient that this would be his best opportunity. I counseled him that he may or may not be able to ambulate with a prosthesis. He certainly could be fitted with a prosthesis, but if he does not have the strength or balance to utilize it, it will be of little benefit to him. I advised him that it may be that he will require a wheelchair for mobility. I did speak to the patient's , Sarah, by phone after speaking with him and have advised her also that a below-knee amputation would be appropriate. I believe the next opportunity in the operating room to proceed would probably be on Wednesday, 09/08. This does not fit the 's schedule well, but I suspect that this will be our next opportunity to proceed. I will speak with the patient again on Wednesday, 09/07 and try to solidify a plan for his surgery. MARIA ALEJANDRA
[2016-09-08] MEDS: SODIUM CHLORIDE 0.9% INJ 10 ML SYR IV SCH ×3 (05:51→21:01)
[2016-09-08 06:36] LABS: BASO % 0.1 % (0.0-1.0); EOS # 0.1 K/mm3 (0.0-0.50); EOS % 1.9 % (0.0-3.0); LARGE UNSTAINED CELL # 0.1 K/mm3 (0.0-0.4); LARGE UNSTAINED CELL % 1.4 % (0.0-4.0); LYMPH # 1.3 K/mm3 (1.5-4.5); LYMPH % 15.9 % (24.0-44.0); MEAN CORPUSCULAR HEMOGLOBIN 26.2 pg (27.0-33.0); MEAN CORPUSCULAR HGB CONC 30.8 g/dl (32.0-36.5); MEAN CORPUSCULAR VOLUME 84.8 fl (80.0-96.0); MONO # 0.5 K/mm3 (0.0-0.8); MONO % 6.4 % (0.0-5.0); NEUTROPHILS # 5.4 K/mm3 (1.8-7.7); NEUTROPHILS % 74.2 % (36.0-66.0); PLATELET COUNT, AUTOMATED 119 k/mm3 (150-450); RED CELL DISTRIBUTION WIDTH 20.2 % (11.5-14.5); WHITE BLOOD COUNT 7.3 K/mm3 (4.0-10.0)
[2016-09-08 06:43] LABS: CALCIUM LEVEL 8.4 MG/DL (8.8-10.2); CREATININE FOR GFR 4.54 MG/DL (0.70-1.30); GLOMERULAR FILTRATION RATE 16.8 (>49); POTASSIUM SERUM 4.6 MEQ/L (3.5-5.1); VANCOMYCIN RANDOM 30.5 UG/ML
[2016-09-08] MEDS ORDERED: LIDOCAINE 2% INJ 100 MG/5 ML SDV (FOR ANES.) As Ordered ONE (07:43)
[2016-09-08] MEDS ORDERED: fentaNYL 100 MCG/2 ML INJECTION (J3010) As Ordered ONE (07:43)
[2016-09-08] MEDS ORDERED: MIDAZOLAM INJ 2 MG/2 ML VIAL (J2250) As Ordered ONE (07:43)
[2016-09-08] MEDS ORDERED: PROPOFOL 200 MG/20 ML VIAL As Ordered ONE ×3 (07:43→09:55)
[2016-09-08] MEDS ORDERED: PHENYLephrine HCL 500 MCG/5 ML (100MCG/ML) SYRINGE (J2370) As Ordered ONE (08:06)
[2016-09-08] MEDS ORDERED: PHENYLEPHRINE INJ 10MG/ML VIAL (J2370) As Ordered ONE (08:22)
[2016-09-08] MEDS ORDERED: MORPHINE 2 MG/ML 1ML SYRINGE IV PRN (10:30)
[2016-09-08] MEDS ORDERED: fentaNYL 100 MCG/2 ML INJECTION (J3010) IV PRN (11:30)
[2016-09-08] MEDS ORDERED: METOCLOPRAMIDE INJ 10MG/2ML VIAL (J2765) IV PRN (11:30)
[2016-09-08] MEDS ORDERED: ONDANSETRON 4MG/2ML VIAL (J2405) IV PRN (11:30)
[2016-09-08] MEDS: NS 1,000 ML IV SCH (11:30)
[2016-09-08] MEDS: METOPROLOL TART 25 MG TABLET PO SCH ×2 (11:58→21:00)
[2016-09-08] MEDS: SENOKOT S TAB PO SCH ×2 (11:58→21:00)
[2016-09-08] MEDS: FLUTICASONE PROP 0.05% NASAL SPRAY 16 GM (FLONASE) SCH ×2 (11:59→21:01)
[2016-09-08] MEDS: POTASSIUM CHLORIDE 10 MEQ SR TABLET PO SCH (11:59)
[2016-09-08] MEDS: BENZONATATE 100 MG CAP PO SCH ×3 (11:59→21:00)
--- NOTE | 2016-09-08 12:11 | IPN ---
DATE: 09/07/2016 Mr. Fernandez is seen on his bedside. He is feeling well and denies any nausea, vomiting, dyspnea or chest pain. He is scheduled for leg amputation by Dr. Burns tomorrow. At present, he is afebrile and feels well. On physical examination, temperature 96.8 degrees Fahrenheit, heart rate 78 per minute and respiratory rate 18 per minute. Blood pressure 128/60 mmHg and oxygen saturation 98%. His neck is supple and a right-sided internal jugular vein triple-lumen catheter is present. There is no thyroid enlargement and trachea is midline. There are no palpable cervical lymph nodes. Oral mucosa is moist and healthy. Pupils are equal and reactive to light and sclera is anicteric. Ears, nose and throat are unremarkable. Heart exam reveals regular S1, S2. There is no pericardial friction rub. A systolic murmur grade 2/6 is present. Lungs are clear to auscultation bilaterally. Abdomen soft and nontender. There is no palpable organomegaly. Extremities have no cyanosis or clubbing. Left foot is wrapped in a dressing. Skin is dry and without any rash or ulcers. Neurologically he has no focal deficit. He is awake, alert and oriented times three. Today's labs show WBC count 6.4, hemoglobin 9.5 and hematocrit 30.7. Platelets 122. Sodium 137 and potassium 4.6. BUN 23 and creatinine 6.10. C-reactive protein is 6.77. PROBLEMS: 1. End-stage renal disease. The patient is being dialyzed today. Today is his regular dialysis day and will try to keep him on his regular days of Wednesday, Wednesday and Wednesday schedule. 2. Shortness of breath. Last week he did have some shortness of breath and required extra ultrafiltration. He was last dialyzed on Wednesday. We will try to remove 3-4 liters of fluid today. His volume status seems to be reasonably well compensated now. He is oxygenating in high 90s on room air. 3. Anemia and acute gastrointestinal (GI) bleed. His GI bleed has stopped and anemia has improved following transfusion. At present we are treating him with Aranesp and will continue to monitor his CBC. 4. Hypertension. Blood pressure is very well controlled on current antihypertensive meds. 5. Diabetes. His diabetes is also reasonably well-controlled. 6. Left foot osteomyelitis and gangrene. The patient is scheduled for left [id number] amputation by Dr. Burns on 09/08/2016.
[2016-09-08] MEDS ORDERED: IPRATROPIUM 0.5MG/ALBUTEROL 2.5MG INH SOL UD 3ML (DUONEB)(J7620) NEB PRN (13:45)
[2016-09-08] MEDS: PERCOCET 5MG/325MG TAB PO PRN ×2 (13:54→17:44)
--- NOTE | 2016-09-08 14:16 | IPN ---
DATE: 09/08/2016 Time patient was seen was at 1320 hours. The patient was seen and examined at bedside. No acute events overnight. The patient received left sided below the knee amputation today with Dr. Burns. Surgery went successfully and the patient is back to his room. The patient denies any chest pain, trouble breathing, fever, chills, abdominal pain, nausea, vomiting, diarrhea or constipation. The patient does not make urine and is an end stage renal disease patient on hemodialysis Wednesday, Wednesday and Wednesday. The patient denies any pain in the left lower extremity after the amputation. Admits to some coughing and increase in sputum production. Otherwise, the patient denies any other new complaints. PHYSICAL EXAMINATION: VITAL SIGNS: Temperature 96.4, pulse 63, respirations 18, blood pressure 109/53, oxygen saturation 99% on room air. GENERAL: The patient is an obese, elderly, -[place]ong[place]ian who was alert, awake and oriented times three. Does not appear to be in distress. Resting comfortably in bed with head elevated at 30 degrees. HEENT: Normocephalic, atraumatic. Extraocular muscles intact. Mucosa moist. Neck is supple. No neck lymphadenopathy. The patient does have moderate strabismus on the left side. CARDIOVASCULAR: Irregularly irregular. S1, S2. 3/6 systolic heart murmur. LUNGS: Diffuse wheezing bilaterally. ABDOMEN: Positive bowel sounds. Soft, nontender, nondistended. No peritoneal signs. No ecchymosis. EXTREMITIES: The patient's left lower extremity amputation dressings were dry, clean and intact. No edema. Right lower extremity shows stasis dermatitis, trace pitting edema. Otherwise, no clubbing. No cyanosis. SKIN: Warm and dry. NEUROLOGIC: Cranial nerves II through XII intact. No focal neurological deficits. LABORATORY DATA: WBC 7.3, hemoglobin 9, hematocrit 39.3, platelet count of 119, MCV of 84.8. Sodium 138, potassium 4.6, chloride 101, bicarbonate 31, BUN 15, creatinine 4.54, GFR 16.8, glucose 98, calcium 8.4. No new cultures. The patient's colonoscopy pathology on 09/01/2016 shows tubular adenoma fragments and also denies hyperplastic polyp with a few dilated glands. ASSESSMENT AND PLAN: 65-year-old male with past medical history of end stage renal disease, on hemodialysis Wednesday, Wednesday, Wednesday, chronic anemia, atrial fibrillation on anticoagulation, hypertension, peripheral artery disease with nonhealing foot ulcers, history of prostate cancer and had radiation 10 years ago and presented with: 1. Wound on the left lower extremity, chronic. The patient had a left sided below the knee amputation with Dr. Burns. Surgery went successfully. The patient denies any pain, any bleeding from the wound. However, the patient does have increased sputum production and coughing. Lung examination also shows increased wheezing. We will add DuoNeb treatment, as well as incentive spirometry and acapella. We will continue to monitor the patient. 2. Acute respiratory distress secondary to fluid overload on 09/04/2016. The patient had bilateral rales and rhonchi, positive jugular venous distention (JVD) and chest x-ray findings that improved after fluid removal through hemodialysis. 3. Thrombocytopenia. 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 We will hold any heparin or Lovenox for now and continue to trend the patient's platelets. 4. End stage renal disease, on hemodialysis Wednesday, Wednesday and Wednesday. However, according to report, the patient received hemodialysis Wednesday, and Wednesday before the patient came to the hospital. 5. Atrial fibrillation. On metoprolol tartrate 25 mg one tablet by mouth twice a day. The patient used to be on anticoagulation before the surgery. It has been on hold for now for the amputation. We will resume it once confirmed with surgery. 6. Acute gastrointestinal bleed. Currently resolved. Endoscopy shows tubular adenoma and also hyperplasia of the polyps. 7. Deep vein thrombosis (DVT) prophylaxis with TEDs and sequential compression device (SCD). We will hold anticoagulation for now. We will resume upon checking with surgery. The patient has been discussed with attending doctor, Dr. Vasquez. My preceptor for this patient encounter was Dr. Vasquez. The preceptor was physically present in the building during the encounter and was fully available. As needed, all aspects of the patient interview, examination, medical decision making process, and medical care plan development were reviewed and approved by the preceptor. The preceptor is aware and concurs with the plan as stated in the body of this note and will attest to such by his/her cosignature.
[2016-09-08] MEDS: CHECK TO SEE IF PATIENT IS RECEIVING DIALYSIS TODAY AND REFER TO THE VANCOMYCIN ORDER XX SCH (14:37)
[2016-09-08] MEDS ORDERED: MORPHINE 2 MG/ML 1ML SYRINGE IV ONE (15:45)
[2016-09-08] MEDS: MORPHINE 2 MG/ML 1ML SYRINGE IV PRN ×2 (18:17→21:00)
[2016-09-08] MEDS: IPRATROPIUM 0.5MG/ALBUTEROL 2.5MG INH SOL UD 3ML (DUONEB)(J7620) NEB SCH (20:26)
[2016-09-09 04:00] VITALS: BP 162/70
[2016-09-09] MEDS: SODIUM CHLORIDE 0.9% INJ 10 ML SYR IV SCH ×3 (05:16→21:46)
[2016-09-09] MEDS: POTASSIUM CHLORIDE 10 MEQ SR TABLET PO SCH (05:38)
[2016-09-09] MEDS: SENOKOT S TAB PO SCH ×2 (05:39→21:08)
[2016-09-09] MEDS: PERCOCET 5MG/325MG TAB PO PRN ×3 (05:39→18:50)
[2016-09-09] MEDS: BENZONATATE 100 MG CAP PO SCH ×3 (05:40→21:08)
[2016-09-09] MEDS: METOPROLOL TART 25 MG TABLET PO SCH (05:40)
[2016-09-09] MEDS: FLUTICASONE PROP 0.05% NASAL SPRAY 16 GM (FLONASE) SCH ×3 (05:40→23:08)
[2016-09-09 06:04] LABS: BASO % 0.2 % (0.0-1.0); EOS # 0.1 K/mm3 (0.0-0.50); EOS % 1.3 % (0.0-3.0); LARGE UNSTAINED CELL # 0.1 K/mm3 (0.0-0.4); LARGE UNSTAINED CELL % 1.5 % (0.0-4.0); LYMPH # 0.9 K/mm3 (1.5-4.5); LYMPH % 12.1 % (24.0-44.0); MEAN CORPUSCULAR HEMOGLOBIN 26.2 pg (27.0-33.0); MEAN CORPUSCULAR VOLUME 87.2 fl (80.0-96.0); MONO # 0.5 K/mm3 (0.0-0.8); MONO % 6.4 % (0.0-5.0); NEUTROPHILS # 5.9 K/mm3 (1.8-7.7); NEUTROPHILS % 78.6 % (36.0-66.0); PLATELET COUNT, AUTOMATED 121 k/mm3 (150-450); RED CELL DISTRIBUTION WIDTH 18.9 % (11.5-14.5); WHITE BLOOD COUNT 7.5 K/mm3 (4.0-10.0)
[2016-09-09 06:23] LABS: ALBUMIN 2.6 GM/DL (3.2-5.2); CALCIUM LEVEL 8.3 MG/DL (8.8-10.2); CREATININE FOR GFR 6.34 MG/DL (0.70-1.30); GLOMERULAR FILTRATION RATE 11.4 (>49); PHOSPHORUS LEVEL 4.1 MG/DL (2.5-4.9); POTASSIUM SERUM 4.9 MEQ/L (3.5-5.1)
[2016-09-09] MEDS: IPRATROPIUM 0.5MG/ALBUTEROL 2.5MG INH SOL UD 3ML (DUONEB)(J7620) NEB SCH ×2 (07:06→19:35)
[2016-09-09] MEDS: NS 1,000 ML IV SCH (07:30)
--- NOTE | 2016-09-09 07:41 | IPN ---
DATE: 09/08/2016 Mr. Fernandez is seen this morning after his left ukxla-ril-kwhe amputation in the recovery room. He is awake and alert and denies any complaints at present. His blood pressure was in the 90s earlier; however, it has now improved. Dr. Burns reports that the patient had an uneventful procedure. On physical exam, the patient is awake and without any acute distress. His temperature is 97.6 degrees Fahrenheit, heart rate 66 per minute and respiratory rate 20 per minute. Blood pressure 128/60 mmHg and oxygen saturation is 100%. His ears, nose and throat are unremarkable. Pupils are equal and reactive to light and sclera anicteric. Heart sounds regular and without a pericardial friction rub. Systolic murmur grade 2/6 is unchanged. Neck is supple and there is a central line in the right internal jugular vein present. There is no thyroid enlargement and trachea is midline. Lungs sound clear to auscultation. Abdomen is soft and nontender. There is no palpable organomegaly. Extremities have no cyanosis or clubbing. Left leg stump is wrapped in dressing. His left arm AV fistula is patent. Skin is without any rash or ulcers. Neurologically, he is awake and alert and at his baseline mentation. There is no focal deficit. Today's labs show WBC count 7.3, hemoglobin 9.0 and hematocrit 29.3. Platelets 119. Sodium 138 and potassium 4.6. BUN 15 and creatinine 4.54. PROBLEMS: 1. End-stage renal disease. The patient was dialyzed yesterday and his next dialysis will be scheduled for tomorrow which is his regular scheduled day. At present, his volume status is well-compensated and electrolytes are within normal range. There is no urgent indication for dialysis today. 2. Anemia. His anemia is probably slightly worse due to blood loss during surgery today. His CBC will be checked again tomorrow morning. He has been treated with Aranesp every week during dialysis. We will continue to monitor. 3. Hypertension. Blood pressure has been well controlled and will be monitored closely. 4. Left foot gangrene and osteomyelitis. The patient underwent left pflgm-vfm-hbqn amputation. At present, there is no other antibiotics, but he does receive vancomycin after dialysis. His vancomycin level this morning is 30.5.
[2016-09-09 08:00] VITALS: BP 119/56
[2016-09-09 08:28] LABS: PERCENT SATURATION 12.7 % (19.7-37.4)
[2016-09-09] MEDS ORDERED: IRON SUCROSE 100 MG/5 ML INJ (J1756) IV SCH (10:15)
[2016-09-09] MEDS ORDERED: DARBEPOETIN 300 MCG/0.6 ML *DIALYSIS* SYRINGE (J0882) IV SCH (10:15)
--- NOTE | 2016-09-09 10:32 | IPN ---
DATE: 09/09/2016 Time patient was seen was this morning around 9:00 a.m. The patient has been seen and examined at bedside. No acute events overnight. The patient still complains of severe left lower extremity pain to the surgical site. The patient stated the pain is 10/10. However, he denies any fever or chills. He denies any chest pain, trouble breathing or any abdominal pain, nausea, vomiting, diarrhea or constipation. Denies any other current new complaints. PHYSICAL EXAMINATION: VITAL SIGNS: Temperature 97.3, pulse 70, respirations 18, blood pressure 119/56, oxygen satting at 100% on room air. The patient's total in yesterday was 1860, total output was 200 mL. The patient will receive hemodialysis today. GENERAL: The patient is an obese, elderly male who was alert, awake and oriented times three. Does not appear to be in distress. Resting comfortably in bed with head elevated at 20 degrees. HEENT: Normocephalic, atraumatic. Extraocular muscles intact. Mucosa moist. Neck supple. No neck lymphadenopathy. The patient does have a right sided internal jugular (IJ) central line which was clean, dry and intact. LUNGS: Slight rales on bilateral sides. CARDIOVASCULAR: Irregularly irregular. S1, S2. 4/6 systolic heart murmur. ABDOMEN: Positive bowel sounds. Soft, nontender, nondistended. No peritoneal signs. No ecchymosis. EXTREMITIES: Left lower extremity has a vhmtm-djg-ozro amputation. Dressings were dry, clean and intact. No edema. No erythema. No swelling. No drainage. Patient's right lower extremity shows stasis dermatitis without any erythema or clotting. Patient's sensations were intact. There was trace amount of edema however. SKIN: Warm and dry. NEUROLOGIC: Cranial nerves II-XII intact. No focal neurological deficit. LABS: WBC 7.5, hemoglobin 8.3, hematocrit 37.7, with platelet count of 121 which is improved from the day prior. MCV 87.2. Sodium 136, potassium 4.9, chloride 101, bicarbonate 30, BUN 23, creatinine 6.34, GFR 11.4, fasting glucose 121, calcium 8.3, phosphorus 4.1, iron 26, total iron binding capacity 205, transferrin pending, percentage transferrin saturation 12.7%, ferritin elevated at 139. Albumin is 2.6, which was low. The patient's WADE was negative from 08/28/2016. Heparin induced antibody was elevated at 0.488. Hepatitis panel was negative. No new cultures. Patient's extremity amputation pathology is pending. ASSESSMENT AND PLAN: 65-year-old male with past medical history of end stage renal disease on hemodialysis Wednesday, Wednesday, and Wednesday, chronic anemia, atrial fibrillation on anticoagulation at home, hypertension, peripheral artery disease with nonhealing foot ulcers, history of prostate cancer and had radiation 10 years ago, who presented with: 1. Wound on the left lower extremity which was chronic. The patient is status post ecrjr-udz-xvip amputation with Dr. Burns, postoperative day #1. Surgery has been okay to transfer patient to medical-surgical and also recommended to restart Eliquis tomorrow if patient's platelets has not dropped. On examination, dressings were dry, clean and intact. The patient however continues to complain of pain. Will give patient a Lidoderm patch to the leg and also gabapentin and will continue pain management per general surgery with morphine and Percocet. Patient had wheezing yesterday which was improved today. Will continue patient on incentive spirometry and continue to monitor patient. 2. Acute respiratory distress secondary to fluid overload on 09/04/2016. Continue hemodialysis and follow nephrology recommendation. 3. 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 At this point, will hold all heparin and Lovenox. The patient's platelets is currently stable. Will possibly restart patient's Eliquis tomorrow. 4. End stage renal disease, on hemodialysis Wednesday, Wednesday and Wednesday. Will continue to follow nephrology's recommendation. 5. Atrial fibrillation. On anticoagulant at home. Will restart Eliquis tomorrow. Continue metoprolol 25 mg by mouth twice a day with hold parameters. 6. Acute gastrointestinal bleed. Currently resolved. Endoscopy showed tubular adenoma and also hyperplasia of the polyps. Currently stable. Will continue to monitor. 7. Deep vein thrombosis (DVT) prophylaxis with thromboembolic deterrent stockings (TEDs) and sequentials for now due to HIT positive and had recent surgery. Will likely restart Eliquis tomorrow. DISPOSITOIN: Patient will be down graded to medical-surgical today due to he does not need heart monitoring at this moment. Will continue pain control and follow general surgery recommendation and also nephrology recommendation. The patient has been discussed with the attending doctor, Dr. Vasquez. My preceptor for this patient encounter was Dr. Vasquez. The preceptor was physically present in the building during the encounter and was fully available. As needed, all aspects of the patient interview, examination, medical decision making process, and medical care plan development were reviewed and approved by the preceptor. The preceptor is aware and concurs with the plan as stated in the body of this note and will attest to such by his/her cosignature.
[2016-09-09] MEDS ORDERED: ELIQ2.5T PO (10:46)
[2016-09-09] MEDS ORDERED: DIGO0.12 PO (10:46)
[2016-09-09] MEDS ORDERED: HYDR1TAB97 PO (10:46)
[2016-09-09] MEDS ORDERED: ASPI325T PO (10:46)
[2016-09-09] MEDS ORDERED: NEPHTAB PO (10:53)
[2016-09-09] MEDS ORDERED: VITA100066 PO (10:53)
[2016-09-09] MEDS ORDERED: DILT0.05 PO (10:54)
--- NOTE | 2016-09-09 11:31 | IPNPDOC ---
Text Note Date of Service The patient was seen on 09/09/16 at 11:27. NOTE: Received a call from pharmacy stating patient didn't have med rec likely due to direct admit, and patient was on digoxin and diltiazem instead of metoprolol. Will dc metoprolol and restart patient on digoxin and diltiazem with hold parameters. Hold Digoxin if HR is <= 70 or if SBP <= 110, Hold diltiazem if HR is <= 65 or if SBP <= 120. VS,Fishbone, I+O VS, Fishbone, I+O Laboratory Tests 09/09/16 05:46 Anion Gap 5 L, Red Blood Count 3.17 L, Mean Corpuscular Volume 87.2, Mean Corpuscular Hemoglobin 26.2 L, Mean Corpuscular Hemoglobin Concent 30.0 L, Red Cell Distribution Width 18.9 H, Neutrophils (%) (Auto) 78.6 H, Lymphocytes (%) ( Auto) 12.1 L, Monocytes (%) (Auto) 6.4 H, Eosinophils (%) (Auto) 1.3, Basophils (%) (Auto) 0.2, Neutrophils # (Auto) 5.9, Lymphocytes # (Auto) 0.9 L, Monocytes # (Auto) 0.5, Eosinophils # (Auto) 0.1, Basophils # (Auto) 0.0 Vital Signs Date Time Temp Pulse Resp B/P Pulse Ox O2 Delivery O2 Flow Rate FiO2 09/09/16 08:00 97.3 70 18 119/56 100 Room Air I&O- Last 24 Hours up to 6 AM 09/09/16 06:00 Intake Total 2260 ml Output Total 200 ml Balance 2060 ml MELO ROLLE DO Sep 09, 2016 11:31
[2016-09-09] MEDS: DIGOXIN 0.125 MG TAB PO SCH (12:32)
[2016-09-09] MEDS: GABAPENTIN 100 MG CAP PO SCH (12:32)
[2016-09-09] MEDS: diltiaZEM **CD** 180 MG CAP PO SCH (12:32)
[2016-09-09] MEDS: LIDOCAINE 5% (LIDODERM) PATCH TD SCH (12:36)
[2016-09-09 12:45] VITALS: BP 120/57
[2016-09-09] MEDS ORDERED: VANCOMYCIN HCL 1,000 MG, VIAL MATE ADAPTER 1 EACH in D5W 250 ML IV SCH (13:00)
[2016-09-09] MEDS: diphenhydrAMINE CREAM 30GM TOP PRN (15:00)
[2016-09-09 18:00] VITALS: BP 161/68
[2016-09-09] MEDS: CHECK TO SEE IF PATIENT IS RECEIVING DIALYSIS TODAY AND REFER TO THE VANCOMYCIN ORDER XX SCH (18:51)
[2016-09-09] MEDS: **NOTE PATIENT COMMENT** MISC XX SCH (21:09)
[2016-09-09 22:00] VITALS: BP 110/54
[2016-09-10 02:00] VITALS: BP 130/62
[2016-09-10 06:00] VITALS: BP 126/60
[2016-09-10] MEDS: SODIUM CHLORIDE 0.9% INJ 10 ML SYR IV SCH ×3 (06:39→18:14)
[2016-09-10 07:01] LABS: BASO % 0.2 % (0.0-1.0); EOS # 0.1 K/mm3 (0.0-0.50); EOS % 1.5 % (0.0-3.0); LARGE UNSTAINED CELL # 0.1 K/mm3 (0.0-0.4); LARGE UNSTAINED CELL % 1.3 % (0.0-4.0); LYMPH # 0.9 K/mm3 (1.5-4.5); LYMPH % 14.6 % (24.0-44.0); MEAN CORPUSCULAR HEMOGLOBIN 25.8 pg (27.0-33.0); MEAN CORPUSCULAR HGB CONC 30.4 g/dl (32.0-36.5); MEAN CORPUSCULAR VOLUME 84.8 fl (80.0-96.0); MONO # 0.4 K/mm3 (0.0-0.8); MONO % 7.5 % (0.0-5.0); NEUTROPHILS # 4.2 K/mm3 (1.8-7.7); NEUTROPHILS % 74.9 % (36.0-66.0); PLATELET COUNT, AUTOMATED 108 k/mm3 (150-450); RED CELL DISTRIBUTION WIDTH 19.8 % (11.5-14.5); WHITE BLOOD COUNT 5.6 K/mm3 (4.0-10.0)
[2016-09-10 07:35] LABS: CALCIUM LEVEL 8.5 MG/DL (8.8-10.2); CREATININE FOR GFR 4.48 MG/DL (0.70-1.30); POTASSIUM SERUM 4.4 MEQ/L (3.5-5.1)
[2016-09-10] MEDS: IPRATROPIUM 0.5MG/ALBUTEROL 2.5MG INH SOL UD 3ML (DUONEB)(J7620) NEB SCH ×2 (08:01→19:08)
[2016-09-10] MEDS: diltiaZEM **CD** 180 MG CAP PO SCH (09:00)
[2016-09-10 10:00] VITALS: BP 108/54
[2016-09-10] MEDS: APIXABAN 2.5 MG TAB (ELIQUIS) PO SCH ×2 (10:02→20:35)
[2016-09-10] MEDS: LIDOCAINE 5% (LIDODERM) PATCH TD SCH (10:02)
[2016-09-10] MEDS: SENOKOT S TAB PO SCH ×2 (10:02→20:34)
[2016-09-10] MEDS: GABAPENTIN 100 MG CAP PO SCH (10:02)
[2016-09-10] MEDS: FLUTICASONE PROP 0.05% NASAL SPRAY 16 GM (FLONASE) SCH ×2 (10:04→20:36)
[2016-09-10] MEDS: BENZONATATE 100 MG CAP PO SCH ×3 (10:04→20:34)
--- NOTE | 2016-09-10 10:07 | IPN ---
DATE: 09/10/2016 Time patient was seen was this morning at 8:30. The patient has been seen and examined at bedside. No acute events overnight. The patient feels better compared to day prior. The patient no longer has any coughing or trouble breathing. The patient admits to less pain from the left lower extremity today. He denies any fever or chills, any chest pain, trouble breathing, abdominal pain, nausea, vomiting, diarrhea, or constipation. The patient stated that surgery might change the dressing today. Otherwise patient denies any other current new complaints. PHYSICAL EXAMINATION: VITAL SIGNS: Temperature 98.3, pulse 82, respirations 18, blood pressure 126/60, oxygen satting at 98% on room air. GENERAL: The patient is an elderly -[place]ian who was alert, awake and oriented times three. Does not appear to be in distress. Resting comfortably in bed with head elevated at 30 degrees. HEENT: Normocephalic, atraumatic. Extraocular muscles intact. Mucosa moist. Neck supple. No neck lymphadenopathy. CARDIOVASCULAR: Irregularly irregular. S1, S2. There were 4/6 systolic heart murmurs. LUNGS: Clear to auscultation bilaterally. No wheezes, rales or rhonchi. ABDOMEN: Positive bowel sounds. Soft, nontender, nondistended. No peritoneal signs. No ecchymosis. EXTREMITIES: Left lower extremity dressings clear, dry and intact. The patient did have a xxpdn-iis-pidx amputation on that leg. There was also no edema or cyanosis noted on the leg. It was not tender to palpation around the dressing. The patient's right lower extremity however did show ulcer at the second toe. It does look like an ischemic ulcer. Also chronic ulcer on the third and fourth toes as well. However, patient stated sensation was intact. The legs were warm to touch. SKIN: Warm and dry. NEUROLOGIC: Cranial nerves II-XII intact. No focal neurological deficit. LABS: WBC 5.6, hemoglobin 7.5, hematocrit 24.7, with platelet count of 108. MCV of 84.8. Sodium 137, potassium 4.4, chloride 100, bicarbonate 32, BUN 12, creatinine 4.48, GFR 17, fasting glucose 110, calcium 8.5. No new cultures. No new imaging. The patient's pathology of the left lower extremity amputation did show gangrenous foot and severe arteriosclerosis with marked calcification. ASSESSMENT AND PLAN: 65-year-old male with past medical history of end stage renal disease on hemodialysis Wednesday, Wednesday, and Wednesday, chronic anemia, atrial fibrillation on anticoagulation, hypertension, peripheral artery disease with nonhealing foot ulcers, history of prostate cancer and radiation 10 years ago, who presented with: 1. Wound on the left lower extremity, status post bnhua-wcc-rxdo amputation on the left side, postoperative day #2. Dr. Burns from general surgery has been consulted. Will follow his recommendation. Patient's Eliquis has been restarted yesterday. On examination, the dressings were clean, dry and intact. Patient admits to less pain. Will continue pain control and continue to monitor the patient. The patient will likely have dressing change today. 2. Acute respiratory distress secondary to fluid overload, resolved. Continue hemodialysis per nephrology recommendation. 3. Anemia. The patient did receive transfusion initially. Today's patient's hemoglobin again dropped to 7.5. Will provide another packed red blood cell (PRBC) today. The patient will likely receive a second unit of PRBC tomorrow during dialysis. 4. Heparin induced thrombocytopenia (HIT). The patient's heparin and Lovenox has been on hold. The patient's Eliquis has been resumed. 5. End stage renal disease, on hemodialysis Wednesday, Wednesday and Wednesday. Continue to follow nephrology's recommendation. 6. Atrial fibrillation. Restarted on Eliquis. Continue metoprolol 25 mg by mouth twice a day with hold parameters. 7. Gastrointestinal bleed, which has been resolved. Patient's occult stool however was negative on 09/03/2016. 8. Deep vein thrombosis (DVT) prophylaxis with Eliquis, thromboembolic deterrent stockings (TEDs) and sequentials. Patient does have HIT. DISPOSITION: Patient was down graded to medical-surgical yesterday. Will continue to monitor him. Will follow general surgery recommendation. The patient's platelet has continued to drop again, will continue to follow platelet level tomorrow. The patient has been discussed with the attending doctor, Dr. Vasquez. My preceptor for this patient encounter was Dr. Shanel Vasquez. The preceptor was physically present in the building during the encounter and was fully available. As needed, all aspects of the patient interview, examination, medical decision making process, and medical care plan development were reviewed and approved by the preceptor. The preceptor is aware and concurs with the plan as stated in the body of this note and will attest to such by his/her cosignature.
--- NOTE | 2016-09-10 11:13 | IPN ---
DATE: 09/09/2016 Mr. Fernandez is seen this morning on his bedside. He underwent left aqkrv-hbr-xbxx amputation yesterday. He is complaining of pain in the stump. He denies any nausea, vomiting, dyspnea or chest pain. On physical exam, temperature 97.3 degrees Fahrenheit, heart rate 70 per minute and respiratory rate 18 per minute. Blood pressure 119/56 mmHg and oxygen saturation 100% on room air. His eyes, ears, nose and throat are unremarkable. Neck is supple and there is no jugular venous distention (JVD). Trachea is midline and there is no thyroid enlargement. Oral mucosa is moist and healthy. He is edentulous. Heart sounds are regular with systolic murmur grade 2/6. Lungs sound clear to auscultation bilaterally. Abdomen soft and nontender. Extremities have no cyanosis or clubbing. He has a dressing on his right foot. Left leg stump is wrapped in a dressing too. Today's labs show WBC count 7.5, hemoglobin 8.3 and hematocrit 27.7. Sodium is 136 and potassium 4.9. BUN 23 and creatinine 6.34. Iron is 26, saturation 12.7 and ferritin 939. PROBLEMS: 1. Left foot osteomyelitis and gangrene. The patient underwent a left jkryo-lbl-zrcf amputation yesterday. His vancomycin level was 30.5. I do not feel that he needs to continue vancomycin anymore. We will discontinue (DC) his vancomycin. His pain is being managed by the hospitalist service. 2. Anemia. His anemia worsened due to acute blood loss. He also has iron deficiency. The patient will be given Venofer 100 mg after each dialysis and we will increase the Aranesp dose to 300 mcg once a week. 3. End-stage renal disease. His regular dialysis days are Wednesday, Wednesday and Wednesday. The patient will be scheduled for hemodialysis later this afternoon. 4. Congestive heart failure. His volume status is reasonably well compensated now and we will continue to monitor closely. We will try to remove about 3 liters of fluid today. 5. Hypertension. At present, his blood pressure is well-controlled and we will continue with current antihypertensive meds.
[2016-09-10 14:00] VITALS: BP 120/57
[2016-09-10] MEDS: CHECK TO SEE IF PATIENT IS RECEIVING DIALYSIS TODAY AND REFER TO THE VANCOMYCIN ORDER XX SCH (14:45)
[2016-09-10] MEDS: PERCOCET 5MG/325MG TAB PO PRN (14:53)
[2016-09-10] MEDS ORDERED: SODIUM CHLORIDE 0.9% INJ 10 ML SYR IV PRN ×3 (15:15→15:30)
[2016-09-10 18:00] VITALS: BP 115/59
--- NOTE | 2016-09-10 19:25 | IPN ---
DATE: 09/09/2016 Mr. Fernandez was seen this morning during rounds. He is now seen during dialysis. He is tolerating dialysis very well. His blood pressure is 134/52 mmHg and heart rate 74 per minute. We are removing about 2 liters of fluid today. Currently, he is resting. Today's laboratories show potassium level 4.9, calcium 8.3, BUN 23 and creatinine 6.34. Hemoglobin is 8.3 and hematocrit 27.7. PROBLEMS: 1. End-stage renal disease. The patient is being dialyzed today, which is his regular day. He is tolerating dialysis very well. 2. Anemia. He does have worsening anemia due to acute blood loss for his left hjlpr-wtr-fcqe amputation yesterday. We will start him on Venofer 100 mg after each dialysis and increase the dose of Aranesp to 300 mcg once a week. His CBC will be monitored. 3. History of congestive heart failure. At present, his volume status is well-compensated, and we will continue to monitor closely. 4. Hypertension. Blood pressure is also well controlled now and we will continue with current antihypertensive medications.
[2016-09-10] MEDS: **NOTE PATIENT COMMENT** MISC XX SCH (20:50)
[2016-09-10 21:13] LABS: MEAN CORPUSCULAR HEMOGLOBIN 26.1 pg (27.0-33.0); RED CELL DISTRIBUTION WIDTH 18.9 % (11.5-14.5); WHITE BLOOD COUNT 5.5 K/mm3 (4.0-10.0)
[2016-09-10 22:00] VITALS: BP 119/59
[2016-09-11 02:00] VITALS: BP 125/61
[2016-09-11] MEDS: SODIUM CHLORIDE 0.9% INJ 10 ML SYR IV SCH ×3 (05:08→18:51)
[2016-09-11 05:24] LABS: BASO % 0.2 % (0.0-1.0); EOS # 0.1 K/mm3 (0.0-0.50); EOS % 2.4 % (0.0-3.0); LARGE UNSTAINED CELL # 0.1 K/mm3 (0.0-0.4); LARGE UNSTAINED CELL % 1.6 % (0.0-4.0); LYMPH # 1.3 K/mm3 (1.5-4.5); LYMPH % 20.3 % (24.0-44.0); MEAN CORPUSCULAR HEMOGLOBIN 25.4 pg (27.0-33.0); MEAN CORPUSCULAR HGB CONC 29.6 g/dl (32.0-36.5); MEAN CORPUSCULAR VOLUME 85.7 fl (80.0-96.0); MONO # 0.3 K/mm3 (0.0-0.8); MONO % 5.7 % (0.0-5.0); NEUTROPHILS % 69.7 % (36.0-66.0); PLATELET COUNT, AUTOMATED 111 k/mm3 (150-450); RED CELL DISTRIBUTION WIDTH 19.9 % (11.5-14.5); WHITE BLOOD COUNT 5.7 K/mm3 (4.0-10.0)
[2016-09-11 05:40] LABS: CALCIUM LEVEL 8.3 MG/DL (8.8-10.2); CREATININE FOR GFR 6.4 MG/DL (0.70-1.30); GLOMERULAR FILTRATION RATE 11.3 (>49); POTASSIUM SERUM 4.7 MEQ/L (3.5-5.1)
[2016-09-11 06:00] VITALS: BP 127/60
[2016-09-11] MEDS: LIDOCAINE 5% (LIDODERM) PATCH TD SCH (06:49)
[2016-09-11] MEDS: GABAPENTIN 100 MG CAP PO SCH (06:50)
[2016-09-11] MEDS: DIGOXIN 0.125 MG TAB PO SCH (06:51)
[2016-09-11] MEDS: SENOKOT S TAB PO SCH ×2 (06:51→20:03)
[2016-09-11] MEDS: FLUTICASONE PROP 0.05% NASAL SPRAY 16 GM (FLONASE) SCH ×2 (06:51→20:03)
[2016-09-11] MEDS: BENZONATATE 100 MG CAP PO SCH ×3 (06:51→20:02)
[2016-09-11] MEDS: diltiaZEM **CD** 180 MG CAP PO SCH (06:51)
[2016-09-11] MEDS: APIXABAN 2.5 MG TAB (ELIQUIS) PO SCH ×2 (06:51→20:02)
[2016-09-11] MEDS: IPRATROPIUM 0.5MG/ALBUTEROL 2.5MG INH SOL UD 3ML (DUONEB)(J7620) NEB SCH ×2 (07:08→19:30)
--- NOTE | 2016-09-11 08:31 | IPN ---
DATE: 09/10/2016 Mr. Fernandez is seen this morning on his bedside. He is feeling better today and sitting in the bed eating his breakfast. He denies any nausea, vomiting, dyspnea or chest pain. On physical exam, temperature 98.3 degrees Fahrenheit, heart rate 82 per minute and respiratory rate 18 per minute. Blood pressure 126/60 mmHg and oxygen saturation 98% on room air. Head is atraumatic. Ears, nose and throat are unremarkable. Pupils are equal and reactive to light and sclera is anicteric. Right-sided central line is present in the internal jugular vein. Neck veins are not abnormally distended. Thyroid is not enlarged and trachea is midline. Oral mucosa is moist and healthy and without any thrush or ulcers. Heart exam reveals regular S1 and S2. There is a systolic murmur grade 2/6. Lungs clear to auscultation bilaterally. Abdomen soft and nontender and without any palpable organomegaly. Extremities have no cyanosis or clubbing. Skin has no rash or ulcers. Left arm AV fistula is patent. His left leg stump is in the dressing. Right foot has a dressing and heel pad to prevent worsening of pressure ulcer on his right heel. Today's labs show WBC count 5.6, hemoglobin 7.5 and hematocrit 24.7. Platelets are 108. Sodium 137 and potassium 4.4. BUN 12 and creatinine 4.48. Calcium level is 8.5. PROBLEMS: 1. End-stage renal disease. The patient was dialyzed yesterday and we will schedule his next hemodialysis tomorrow. There is no emergent indication for dialysis today. 2. Anemia. His anemia has worsened and probably related to blood loss. We will transfuse him 2 units of packed RBCs during dialysis on 09/11/2016. 3. Hypertension. Blood pressure control is optimal. No changes are being made at this point. 4. Left foot gangrene, status post left sqiwq-afc-cqwk amputation. The patient is doing well and his pain is well-controlled. I feel that his vancomycin should be stopped at this point.
[2016-09-11 08:38] LABS: REASON FOR REVIEW COMPREHENSIVE REVIEW
[2016-09-11] MEDS ORDERED: MOM 30ML SUSPENSION UDC PO PRN (09:15)
[2016-09-11 09:57] LABS: INR 1.25
--- NOTE | 2016-09-11 11:14 | IPN ---
DATE OF SERVICE: 09/11/2016 ATTENDING DOCTOR: Dr. Shanel Vasquez Time the patient was seen was at 8:45. The patient has been seen and examined at bedside. No acute events overnight. The patient stated that he is feeling well. Denies any additional pain from the tbcxa-tew-iagf amputation. Denies any blood in urine or stool. Denies any rash. Denies any problem with eating or drinking; however, he admits to not having bowel movement for at least 4 days. He denies any chest pain, trouble breathing , nausea, vomiting. The patient denies any other current new complaints. PHYSICAL EXAMINATION: VITAL SIGNS: Temperature 95.5, pulse 80, respirations 17, blood pressure 127/60 , oxygen saturating at 98% on room air. The patient's total input yesterday was 1200, total output was zero. GENERAL: The patient is a pleasant elderly -[place] who was alert, awake, oriented times three. Does not appear to be in distress. Lying comfortably in his dialysis bed receiving dialysis. HEENT: Normocephalic, atraumatic. Extraocular motor intact. Mucosa moist. NECK: Supple. No neck lymphadenopathy. CARDIOVASCULAR: Irregularly irregular. S1, S2. 4/6 systolic heart murmur. LUNGS: Show slight rales on the right side. ABDOMEN: Positive bowel sounds. Soft, nontender, nondistended. No peritoneal signs. No ecchymosis. EXTREMITIES: The patient has a left-sided cgred-qas-iymd amputation. Dressing was clear, dry, and intact. No edema around the dressing. Right foot shows an arterial ulcer, which appears to be chronic. The patient does have a few new petechiae on the right loya. Otherwise, no edema or clubbing. There was also stasis dermatitis on the right ankle. SKIN: Warm and dry. NEUROLOGIC: Cranial nerves II-XII intact. No focal neurological deficit. LABORATORIES: WBC 5.7, hemoglobin 7.4 which was low (Yesterday, it was 7.7. Before that, it was 7.5 status post 1 unit of packed red blood cells.), hematocrit 24.8, hematocrit was 24.8, MCV 85.7, platelet count was 111 which is about the same as yesterday. Chemistry shows sodium 136, potassium 4.7, chloride 100, bicarbonate 31, BUN 24, creatinine 6.4, GFR 11.3, fasting glucose 115, calcium 8.3. PT 15.8, INR 1.25, PTT 38.2. ASSESSMENT AND PLAN: A 65-year-old male with past medical history of end-stage renal disease on hemodialysis Wednesday, Wednesday, and Wednesday, chronic anemia, atrial fibrillation on Eliquis, hypertension, peripheral artery disease with nonhealing foot ulcers on the right side, history of prostate cancer and radiation 10 years ago, who presented with: 1. Chronic wound on the left lower extremity, status post bnnkm-ozu-sbxr amputation on the left side, postoperative day #3. Dr. Burns from general surgery has been consulted. Will follow his recommendation. The patient's Eliquis has been restarted. Dressing change and pain management per general surgery. The patient continues to be anemic, however. Received 1 unit packed red blood cells yesterday. Was transfused 2 more units of packed red blood cells during hemodialysis. 2. Acute respiratory distress secondary to fluid overload, resolved. Continue hemodialysis. 3. Anemia. The patient did receive transfusion yesterday. However, hemoglobin remained low this morning around 7.4. The patient will receive 2 more units of packed red blood cells during hemodialysis today. The patient's fecal occult blood was negative. The patient's peripheral smear several days ago did not show schistocytes or any morphological changes. Will continue to monitor and rule out etiology for the patient's anemia. Likely possibilities including chronic kidney disease versus occult blood loss. 4. Heparin-induced thrombocytopenia. The patient's heparin and Lovenox has been stopped and the patient should not receive heparin and Lovenox again in the future. The patient's Eliquis has been resumed. 5. End-stage renal disease, on hemodialysis Wednesday, Wednesday, and Wednesday. Will follow nephrology's recommendation. 6. Atrial fibrillation. Restarted on Eliquis. Continue metoprolol 25 mg by mouth twice a day with hold parameters. 7. History of gastrointestinal (GI) bleed, however, it appears to be resolved. The patient's fecal occult blood was negative. 8. Deep vein thrombosis (DVT) prophylaxis with Eliquis, thromboembolic deterrent stockings (TEDs), and sequentials. The patient does has heparin-induced thrombocytopenia (HIT). DISPOSITION: The patient has been downgraded to medical-surgical, and the patient continues to be anemia. The patient will receive a blood transfusion with 2 units of packed red blood cells through hemodialysis, and will continue to monitor the patient again in the morning. The patient has been discussed with the attending doctor, Dr. Vasquez. My preceptor for this patient encounter was Dr. Shanel Vasquez. The preceptor was physically present in the building during the encounter and was fully available. As needed, all aspects of the patient interview, examination, medical decision making process, and medical care plan development were reviewed and approved by the preceptor. The preceptor is aware and concurs with the plan as stated in the body of this note and will attest to such by his/her cosignature. MARIA ALEJANDRA
[2016-09-11] MEDS: DOCUSATE SODIUM 100 MG CAP PO SCH ×2 (13:31→20:02)
[2016-09-11 14:30] VITALS: BP 112/53
[2016-09-11 18:00] VITALS: BP 124/58
[2016-09-11] MEDS: **NOTE PATIENT COMMENT** MISC XX SCH (20:03)
[2016-09-11 22:00] VITALS: BP 138/62
[2016-09-12 02:00] VITALS: BP 133/65
[2016-09-12] MEDS: SODIUM CHLORIDE 0.9% INJ 10 ML SYR IV SCH ×2 (05:08→16:13)
[2016-09-12 06:00] VITALS: BP 147/67
[2016-09-12] MEDS: IPRATROPIUM 0.5MG/ALBUTEROL 2.5MG INH SOL UD 3ML (DUONEB)(J7620) NEB SCH ×2 (07:10→19:24)
[2016-09-12 07:54] LABS: BASO % 0.1 % (0.0-1.0); EOS # 0.2 K/mm3 (0.0-0.50); EOS % 2.6 % (0.0-3.0); LARGE UNSTAINED CELL # 0.1 K/mm3 (0.0-0.4); LARGE UNSTAINED CELL % 1.2 % (0.0-4.0); LYMPH # 1.4 K/mm3 (1.5-4.5); LYMPH % 22.4 % (24.0-44.0); MEAN CORPUSCULAR HEMOGLOBIN 26.2 pg (27.0-33.0); MEAN CORPUSCULAR HGB CONC 30.7 g/dl (32.0-36.5); MEAN CORPUSCULAR VOLUME 85.3 fl (80.0-96.0); MONO # 0.3 K/mm3 (0.0-0.8); NEUTROPHILS # 4.2 K/mm3 (1.8-7.7); NEUTROPHILS % 68.8 % (36.0-66.0); PLATELET COUNT, AUTOMATED 107 k/mm3 (150-450); RED CELL DISTRIBUTION WIDTH 19.3 % (11.5-14.5); WHITE BLOOD COUNT 6.1 K/mm3 (4.0-10.0)
[2016-09-12 08:18] LABS: ALBUMIN 2.3 GM/DL (3.2-5.2); ALBUMIN/GLOBULIN RATIO 0.66 (1.00-1.93); BILIRUBIN,DIRECT 0.6 MG/DL (0.0-0.2); BILIRUBIN,TOTAL 1.1 MG/DL (0.2-1.0); CALCIUM LEVEL 8.7 MG/DL (8.8-10.2); CREATININE FOR GFR 4.44 MG/DL (0.70-1.30); GLOMERULAR FILTRATION RATE 17.2 (>49); POTASSIUM SERUM 4.1 MEQ/L (3.5-5.1); TOTAL PROTEIN 5.8 GM/DL (6.4-8.2)
[2016-09-12] MEDS: diltiaZEM **CD** 180 MG CAP PO SCH (08:31)
[2016-09-12] MEDS: DOCUSATE SODIUM 100 MG CAP PO SCH ×2 (08:31→20:24)
[2016-09-12] MEDS: BENZONATATE 100 MG CAP PO SCH ×3 (08:31→20:25)
[2016-09-12] MEDS: APIXABAN 2.5 MG TAB (ELIQUIS) PO SCH ×2 (08:31→20:25)
[2016-09-12] MEDS: GABAPENTIN 100 MG CAP PO SCH (08:31)
[2016-09-12] MEDS: SENOKOT S TAB PO SCH ×2 (08:31→20:24)
[2016-09-12] MEDS: FLUTICASONE PROP 0.05% NASAL SPRAY 16 GM (FLONASE) SCH ×2 (08:32→20:26)
[2016-09-12] MEDS: LIDOCAINE 5% (LIDODERM) PATCH TD SCH (08:32)
--- NOTE | 2016-09-12 09:45 | RO ---
DATE OF PROCEDURE: 09/10/2016 PREOPERATIVE DIAGNOSIS: Gangrene left toes and distal foot secondary to atherosclerotic peripheral vascular disease. POSTOPERATIVE DIAGNOSIS: Gangrene left toes and distal foot secondary to atherosclerotic peripheral vascular disease. PROCEDURE PERFORMED: Left below-knee amputation. SURGEON: Dr. Burns RETOUCHER PHOTOENGRAVING: ANESTHESIA: Spinal with monitored anesthesia care. INDICATIONS FOR THE PROCEDURE: The patient is a 65-year-old man with end-stage renal disease on hemodialysis. He had developed a nonhealing sore at the tip of his left great toe several months ago. An amputation of the left great toe did not heal. He underwent an evaluation by the vascular surgery group in [place] and was not felt to have disease of the arteries which could be adequately corrected. An amputation was recommended. The patient declined at that time. He has had progressive gangrene of all of the toes of his left foot as well as the distal portion of his foot. He is now for a below-knee amputation. OPERATIVE PROCEDURE: The patient had a spinal anesthetic placed and also received additional sedation from anesthesia. He was placed supine on the operating table. The left lower extremity was prepped to the upper thigh. The foot was draped with an impervious drape. A skin marker was used to outline an incision for a left below-knee amputation utilizing a longer posterior flap to close the amputation site. The site for bone transection was established approximately 12 cm distal to the joint line with the skin incision anteriorly about 2 cm below this. Initially, the anterior half of the incision was made sharply. The dissection proceeded using the cautery. Larger subcutaneous or intermuscular vessels were clamped and divided and ligated with Vicryl sutures. The periosteum of the tibia was scored and then elevated proximally to the level of transection and the tibia was then transected with the Gigli saw. The posterior skin flap was then incised and dissection was carried through the fascia using the cautery. The dissection along the fibula was then developed further to allow transection of the fibula with a double-action bone cutter. The neurovascular bundle and muscles of the posterior skin flap were then divided sharply down to the tip of the flap and the lower limb was removed and passed off as a specimen. The major vascular bundle was clamped to manage bleeding. The venous and arterial portions were subsequently dissected separately and securely ligated with Vicryl. The nerve was pulled down and cut and allowed to retract. The fibula was dissected free an additional 2-3 cm superiorly and again transected with the bone cutter. The anterior edge of the tibia was beveled using an oscillating saw. Multiple small bleeders within the muscles of the posterior flap were oversewn with [id number] sutures of #3-0 Vicryl. The wound was irrigated multiple times to identify small bleeders. Final inspection showed excellent hemostasis. The posterior skin flap was then folded anteriorly. The fascia was sutured to the fascia anteriorly with multiple interrupted simple buried sutures of #0 Vicryl. This gave a very nice approximation of the of the skin flap. The patient's muscles were somewhat pale in areas but the circulation appeared adequate to heal his amputation. The skin and subcutaneous tissues were approximated through the length of the incision with multiple interrupted simple and vertical mattress sutures of nylon. The wound was dressed with a large Xeroform and a bulky bandage of prep gauze, Kerlix rolls, and a stump sock were applied. The patient tolerated the procedure well without apparent complication. He was transported to the recovery room in stable condition. MARIA ALEJANDRA
[2016-09-12 10:00] VITALS: BP 128/62
[2016-09-12 14:00] VITALS: BP 130/60
--- NOTE | 2016-09-12 14:56 | IPNPDOC ---
Assessment/Plan Date Seen The patient was seen on 09/12/16. Problems Problems: (1) Wound of left lower extremity Status: Chronic Response to Treatment: Controlled Problem Text: surgery has been consulted. s/p below knee amputation on 09/10/[address] Burns Continue wound care, pain control per general surgery Continue medical management (2) Acute respiratory distress Status: Resolved Problem Text: - Sign of fluid overload (09/04/16); bilateral ronchi, , +JVD, + CXR. Symptoms showed significant improvement after fluid removal. (3) Thrombocytopenia Status: Acute Response to Treatment: Stable Problem Text: + HIT antibody. Heparin flash discontinued. (4) End stage renal disease on dialysis Status: Chronic Response to Treatment: Stable Problem Text: Inpatient dialysis date is ,,. (5) A-fib Status: Chronic Response to Treatment: Stable Problem Text: Metoprolol tartrate 25mg PO BID. Rate controlled. Eliquis continued after surgery (6) GI (gastrointestinal bleed) Status: Resolved Problem Text: hemo occult negative (7) Anemia Status: Acute Problem Text: Patient had 8 units of PRBC since he has been here Plan / VTE VTE Prophylaxis Ordered?: Yes (ESPERANZA) Subjective CC/HPI The patient is a 65-year-old male admitted with a reason for visit of Sepsis, Anemia. Seen and examined at bedside. No acute event overnight. Patient is feeling better. Patient denies any fever/chill, chest pain, sob, abdominal pain , nausea, vomiting, diarrhea, constipation, or blood in stool. Patient denies any other current new complaints. 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)No: Clubbing, Cyanosis Skin Exam: : Nl turgor and temperature Neuro Exam: : Cranial Nerves 3-12 NL Psych Exam: : Mood NL Vital Signs I&O Vital Sign - Last 24 Hours 09/11/16 09/11/16 09/11/16 09/11/16 15:54 15:56 18:00 20:02 Temp 97.7 Pulse 78 Resp 18 18 B/P 124/58 Pulse Ox 99 O2 Delivery Room Air Room Air Room Air 09/11/16 09/12/16 09/12/16 09/12/16 22:00 02:00 06:00 08:31 Temp 99.7 98.9 98.5 Pulse 82 75 75 75 Resp 19 18 18 B/P 138/62 133/65 147/67 147/67 Pulse Ox 97 98 97 O2 Delivery Room Air Room Air Room Air I&O- Last 24 Hours up to 6 AM 09/12/16 06:00 Intake Total 450 ml Output Total 3000 ml Balance -2550 ml Laboratory Data Labs 24H Laboratory Tests 2 09/12/16 07:29: Aspartate Amino Transf (AST/SGOT) 98H, Alanine Aminotransferase (ALT/SGPT) 128H , Lactate Dehydrogenase 195, Alkaline Phosphatase 248H, Total Bilirubin 1.1H, Direct Bilirubin 0.6H, Albumin 2.3L, Albumin/Globulin Ratio 0.66L, Anion Gap 6L , White Blood Count 6.1, Red Blood Count 3.34L, Hemoglobin 8.7L, Hematocrit 28.5L, Mean Corpuscular Volume 85.3, Mean Corpuscular Hemoglobin 26.2L, Mean Corpuscular Hemoglobin Concent 30.7L, Red Cell Distribution Width 19.3H, Platelet Count 107L, Neutrophils (%) (Auto) 68.8H, Lymphocytes (%) (Auto) 22.4L , Monocytes (%) (Auto) 5.0, Eosinophils (%) (Auto) 2.6, Basophils (%) (Auto) 0.1 , Neutrophils # (Auto) 4.2, Lymphocytes # (Auto) 1.4L, Monocytes # (Auto) 0.3, Eosinophils # (Auto) 0.2, Basophils # (Auto) 0.0, Calcium Level 8.7L, Glomerular Filtration Rate 17.2L, Large Unclassified Cells # 0.1, Large Unclassified Cells % 1.2, Total Protein 5.8L 09/12/16 13:57: CBC/BMP Laboratory Tests 09/12/16 07:29 Red Blood Count 3.34 L, Mean Corpuscular Volume 85.3, Mean Corpuscular Hemoglobin 26.2 L, Mean Corpuscular Hemoglobin Concent 30.7 L, Red Cell Distribution Width 19.3 H, Neutrophils (%) (Auto) 68.8 H, Lymphocytes (%) (Auto ) 22.4 L, Monocytes (%) (Auto) 5.0, Eosinophils (%) (Auto) 2.6, Basophils (%) ( Auto) 0.1, Neutrophils # (Auto) 4.2, Lymphocytes # (Auto) 1.4 L, Monocytes # ( Auto) 0.3, Eosinophils # (Auto) 0.2, Basophils # (Auto) 0.0 Medications Medications Current Medications Medications Dose Ordered Sig/Prem Route PRN Reason Start Time Stop Time Status Last Admin Dose Admin Acetaminophen 650 mg Q4HP PRN PO MILD PAIN OR FEVER 08/28/16 16:30 09/30/16 16:29 09/07/16 18:30 650 MG Albuterol/ Ipratropium 3 ml Q2HP PRN NEB SOB/WHEEZING 09/08/16 13:45 10/08/16 13:44 Albuterol/ Ipratropium 3 ml RQ12H NEB 09/08/16 20:00 10/08/16 19:59 09/12/16 07:10 3 ML Apixaban 2.5 mg BID PO 09/10/16 09:00 09/17/16 08:59 09/12/16 08:31 2.5 MG Benzonatate 100 mg TID PO 09/04/16 21:00 10/04/16 20:59 09/12/16 08:31 100 MG Darbepoetin Curtis 300 mcg HD IV 09/09/16 10:15 10/09/16 10:14 Digoxin 0.125 mg MoWeFr@09 PO 09/09/16 09:00 10/09/16 08:59 09/11/16 06:51 0.125 MG Diltiazem HCl 180 mg DAILY PO 09/09/16 09:00 10/09/16 08:59 09/12/16 08:31 180 MG Diphenhydramine HCl Apply to affected area ... BID PRN TOP ITCHING 08/29/16 02:15 09/30/16 02:14 09/09/16 15:00 1 DOSE Docusate Sodium 100 mg BID PO 09/11/16 09:00 10/11/16 08:59 09/12/16 08:31 100 MG Fluticasone Propionate 1 spray BID NA 09/04/16 21:00 10/04/16 20:59 09/12/16 08:32 1 SPRAY Gabapentin 100 mg QAM PO 09/09/16 09:00 10/09/16 08:59 09/12/16 08:31 100 MG Iron 100 mg HD IV 09/09/16 10:15 10/09/16 10:14 Lidocaine 1 patch DAILY TD 09/09/16 09:00 10/09/16 08:59 09/12/16 08:32 1 PATCH Magnesium Hydroxide 30 ml DAILYPRN PRN PO CONSTIPATION 09/11/16 09:15 10/11/16 09:14 09/12/16 08:31 30 ML Morphine Sulfate 2 mg Q1HP PRN IV MODERATE/SEVERE PAIN (PS 5-10) 09/08/16 18:00 09/15/16 17:59 09/08/16 21:00 2 MG Non-Formulary Medication REMOVE LIDODERM PATCH DAILY@21 XX 09/09/16 21:00 10/09/16 20:59 09/11/16 20:03 1 Ondansetron HCl 4 mg Q6HP PRN IV NAUSEA OR VOMITING 08/28/16 16:30 09/30/16 16:29 Oxycodone/ Acetaminophen 1 tab Q4HP PRN PO MILD/MODERATE PAIN (PS 1-7) 09/08/16 10:30 09/15/16 10:29 09/10/16 14:53 1 TAB Senna/Docusate Sodium 1 tab BID PO 08/28/16 21:00 09/30/16 20:59 09/12/16 08:31 1 TAB Sodium Chloride 2 spray Q2HP PRN NA NASAL DRYNESS 09/02/16 09:30 10/02/16 09:29 Sodium Chloride 10 ml ASDIRECTED PRN IV SEE LABEL COMMENTS 09/10/16 15:30 10/04/16 15:29 Sodium Chloride 10 ml PICC IV 09/10/16 18:00 10/04/16 17:59 09/12/16 05:08 10 ML Allergies Coded Allergies: Penicillins (Verified Allergy, Mild, RASH, 08/28/16) Heparin (Verified Adverse Reaction, Severe, HIT - 09/2016, 09/10/16) GME ATTESTATION GME ATTESTATION My preceptor for this patient encounter was physically present in the building during the encounter and was fully available. As needed, all aspects of the patient interview, examination, medical decision making process, and medical care plan development were reviewed and approved by the preceptor. Preceptor is aware and concurs with the plan as stated in the body of this note and will attest to such by his/her cosignature. MELO ROLLE DO Sep 12, 2016 14:56
[2016-09-12 18:00] VITALS: BP 144/62
[2016-09-12] MEDS: **NOTE PATIENT COMMENT** MISC XX SCH (20:26)
[2016-09-12 22:00] VITALS: BP 126/60
[2016-09-13 02:00] VITALS: BP 135/62
[2016-09-13 06:00] VITALS: BP 134/62
[2016-09-13] MEDS: IPRATROPIUM 0.5MG/ALBUTEROL 2.5MG INH SOL UD 3ML (DUONEB)(J7620) NEB SCH (06:17)
[2016-09-13 06:20] LABS: CREATININE FOR GFR 6.09 MG/DL (0.70-1.30); POTASSIUM SERUM 4.4 MEQ/L (3.5-5.1)
[2016-09-13 06:24] LABS: BASO % 0.1 % (0.0-1.0); EOS # 0.2 K/mm3 (0.0-0.50); EOS % 2.4 % (0.0-3.0); LARGE UNSTAINED CELL # 0.1 K/mm3 (0.0-0.4); LARGE UNSTAINED CELL % 1.2 % (0.0-4.0); LYMPH # 1.2 K/mm3 (1.5-4.5); LYMPH % 15.7 % (24.0-44.0); MEAN CORPUSCULAR HEMOGLOBIN 26.7 pg (27.0-33.0); MEAN CORPUSCULAR HGB CONC 30.8 g/dl (32.0-36.5); MEAN CORPUSCULAR VOLUME 86.6 fl (80.0-96.0); MONO # 0.4 K/mm3 (0.0-0.8); MONO % 5.3 % (0.0-5.0); NEUTROPHILS # 5.5 K/mm3 (1.8-7.7); NEUTROPHILS % 75.4 % (36.0-66.0); PLATELET COUNT, AUTOMATED 121 k/mm3 (150-450); RED CELL DISTRIBUTION WIDTH 19.6 % (11.5-14.5); WHITE BLOOD COUNT 7.3 K/mm3 (4.0-10.0)
--- NOTE | 2016-09-13 06:48 | IPN ---
DATE: 09/11/2016 Mr. Fernandez is seen this morning on his bedside. He is currently undergoing hemodialysis. He is resting comfortably and denies any complaints. He has no dyspnea, chest pain, nausea or vomiting. He has been eating well. He underwent left njjbx-[id number]-nwma amputation on September 08 and his pain has been well controlled. PHYSICAL EXAMINATION: His temperature is 98.9 degrees Fahrenheit, heart rate 80 per minute and respiratory rate 18 per minute. Blood pressure 122/78 mmHg. He has a central line in right internal jugular vein. His pupils are equal and reactive to light and sclera is anicteric. Oral mucosa is moist and healthy. He is edentulous and throat is unremarkable. Ears and nose are also unremarkable. His neck veins are mildly distended. There is no thyroid enlargement. Trachea is central in the midline. There are no abnormal cervical lymph nodes. His heart sounds are regular with systolic murmur grade 2/6. Lungs: Clear to auscultation. Abdomen: Soft and nontender and without hepatomegaly. Bowel sounds are normal. Extremities have no cyanosis or clubbing. Left arm AV fistula is patent. He has left wytkh-zye-ikak amputation and stump is wrapped in dressing. He also has a dressing on his right foot. LABORATORY DATA: Today's labs show BUN 24 and creatinine 5.0. Sodium 137 and potassium 4.7. WBC count is 5.7, hemoglobin 7.4 and hematocrit 24.8. PROBLEMS: 1. End-stage renal disease. The patient is undergoing hemodialysis today which he is tolerating very well. 2. History of congestive heart failure and shortness of breath. He is well-compensated and we are removing three liters of fluid today which he is tolerating well so far. 3. Acute blood loss anemia most likely related to his left xuwcp-cyi-qews amputation. He also has history of GI bleed recently. We are transfusing two units of packed RBCs during dialysis. 4. Hypertension. Blood pressure has been very well controlled and he will continue with current antihypertensive medications.
--- NOTE | 2016-09-13 07:57 | IPNPDOC ---
Assessment/Plan Date Seen The patient was seen on 09/13/16. Problems Problems: (1) Status post below knee amputation of left lower extremity Status: Acute Problem Text: s/p below knee amputation on 09/10/[address] Burns Continue wound care, pain control per general surgery Continue PT. Also has non healing ulcer of the right heel (2) Thrombocytopenia Status: Acute Response to Treatment: Stable Problem Text: + HIT antibody. Ordered Serotonin release assay as confirmatory test. Heparin flash discontinued. (3) End stage renal disease on dialysis Status: Chronic Response to Treatment: Stable Problem Text: Inpatient dialysis date is M,W,F. (4) A-fib Status: Chronic Response to Treatment: Stable Problem Text: Metoprolol tartrate 25mg PO BID. Rate controlled. Eliquis continued after surgery (5) Diastolic CHF, acute Status: Acute Problem Text: - Acute diastolic heart failure with Sign of fluid overload (); bilateral ronchi, , +JVD, +CXR. Symptoms showed significant improvement after fluid removal. 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 EGD showed hyperplastic gastric polyp removed. (8) Anemia Status: Acute Problem Text: Acute blood loss anemia on anemia of chronic kidney disease. Patient had 8 units of PRBC since he has been here (9) PAD (peripheral artery disease) Status: Chronic (10) History of prostate cancer Status: Chronic (11) Pulmonary hypertension Status: Chronic Problem Text: severe Plan / VTE VTE Prophylaxis Ordered?: Yes (ESPERANZA) Subjective CC/HPI The patient is a 65-year-old male admitted with a reason for visit of Sepsis, Anemia. Events since last encounter No complaints this am , working with PT . 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 heel)No: Clubbing, Cyanosis Skin Exam: : Nl turgor and temperature Neuro Exam: : Cranial Nerves 3-12 NL Psych Exam: : Mood NL Vital Signs I&O Vital Sign - Last 24 Hours 09/12/16 09/12/16 09/12/16 09/12/16 08:31 10:00 14:00 18:00 Temp 99.5 99.8 99.6 Pulse 75 78 65 68 Resp 18 20 16 B/P 147/67 128/62 130/60 144/62 Pulse Ox 98 98 98 O2 Delivery Room Air Room Air Room Air 09/12/16 09/12/16 09/12/16 09/13/16 19:24 20:24 22:00 02:00 Temp 99.6 98.9 Pulse 81 82 74 Resp 19 18 B/P 126/60 135/62 Pulse Ox 97 97 O2 Delivery Room Air Room Air Room Air 09/13/16 09/13/16 06:00 06:17 Temp 98.9 Pulse 75 76 Resp 18 B/P 134/62 Pulse Ox 97 O2 Delivery Room Air I&O- Last 24 Hours up to 6 AM 09/13/16 06:00 Intake Total 1440 ml Output Total 0 ml Balance 1440 ml Laboratory Data Labs 24H Laboratory Tests 2 09/12/16 13:57: 09/13/16 05:50: Anion Gap 5L, White Blood Count 7.3, Red Blood Count 3.43L, Hemoglobin 9.2L, Hematocrit 29.7L, Mean Corpuscular Volume 86.6, Mean Corpuscular Hemoglobin 26.7L, Mean Corpuscular Hemoglobin Concent 30.8L, Red Cell Distribution Width 19.6H, Platelet Count 121L, Neutrophils (%) (Auto) 75.4H, Lymphocytes (%) (Auto ) 15.7L, Monocytes (%) (Auto) 5.3H, Eosinophils (%) (Auto) 2.4, Basophils (%) ( Auto) 0.1, Neutrophils # (Auto) 5.5, Lymphocytes # (Auto) 1.2L, Monocytes # ( Auto) 0.4, Eosinophils # (Auto) 0.2, Basophils # (Auto) 0.0, Blood Urea Nitrogen 28#H, Creatinine 6.09H, Sodium Level 133L, Potassium Level 4.4, Chloride Level 98, Carbon Dioxide Level 30, Calcium Level 9.0, Glomerular Filtration Rate 12.0L, Large Unclassified Cells # 0.1, Large Unclassified Cells % 1.2 CBC/BMP Laboratory Tests 09/13/16 05:50 Calcium Level 9.0, Red Blood Count 3.43 L, Mean Corpuscular Volume 86.6, Mean Corpuscular Hemoglobin 26.7 L, Mean Corpuscular Hemoglobin Concent 30.8 L, Red Cell Distribution Width 19.6 H, Neutrophils (%) (Auto) 75.4 H, Lymphocytes (%) ( Auto) 15.7 L, Monocytes (%) (Auto) 5.3 H, Eosinophils (%) (Auto) 2.4, Basophils (%) (Auto) 0.1, Neutrophils # (Auto) 5.5, Lymphocytes # (Auto) 1.2 L, Monocytes # (Auto) 0.4, Eosinophils # (Auto) 0.2, Basophils # (Auto) 0.0 Medications Medications Current Medications Medications Dose Ordered Sig/Prem Route PRN Reason Start Time Stop Time Status Last Admin Dose Admin Acetaminophen 650 mg Q4HP PRN PO MILD PAIN OR FEVER 08/28/16 16:30 09/30/16 16:29 09/07/16 18:30 650 MG Albuterol/ Ipratropium 3 ml Q2HP PRN NEB SOB/WHEEZING 09/08/16 13:45 10/08/16 13:44 Albuterol/ Ipratropium 3 ml RQ12H NEB 09/08/16 20:00 10/08/16 19:59 09/13/16 06:17 3 ML Apixaban 2.5 mg BID PO 09/10/16 09:00 09/17/16 08:59 09/12/16 20:25 2.5 MG Benzonatate 100 mg TID PO 09/04/16 21:00 10/04/16 20:59 09/12/16 20:25 100 MG Darbepoetin Curtis 300 mcg HD IV 09/09/16 10:15 10/09/16 10:14 Digoxin 0.125 mg MoWeFr@09 PO 09/09/16 09:00 10/09/16 08:59 09/11/16 06:51 0.125 MG Diltiazem HCl 180 mg DAILY PO 09/09/16 09:00 10/09/16 08:59 09/12/16 08:31 180 MG Diphenhydramine HCl Apply to affected area ... BID PRN TOP ITCHING 08/29/16 02:15 09/30/16 02:14 09/09/16 15:00 1 DOSE Docusate Sodium 100 mg BID PO 09/11/16 09:00 10/11/16 08:59 09/12/16 20:24 100 MG Fluticasone Propionate 1 spray BID NA 09/04/16 21:00 10/04/16 20:59 09/12/16 20:26 1 SPRAY Gabapentin 100 mg QAM PO 09/09/16 09:00 10/09/16 08:59 09/12/16 08:31 100 MG Iron 100 mg HD IV 09/09/16 10:15 10/09/16 10:14 Lidocaine 1 patch DAILY TD 09/09/16 09:00 10/09/16 08:59 09/12/16 08:32 1 PATCH Magnesium Hydroxide 30 ml DAILYPRN PRN PO CONSTIPATION 09/11/16 09:15 10/11/16 09:14 09/12/16 08:31 30 ML Morphine Sulfate 2 mg Q1HP PRN IV MODERATE/SEVERE PAIN (PS 5-10) 09/08/16 18:00 09/15/16 17:59 09/08/16 21:00 2 MG Non-Formulary Medication REMOVE LIDODERM PATCH DAILY@21 XX 09/09/16 21:00 10/09/16 20:59 09/12/16 20:26 1 Ondansetron HCl 4 mg Q6HP PRN IV NAUSEA OR VOMITING 08/28/16 16:30 09/30/16 16:29 Oxycodone/ Acetaminophen 1 tab Q4HP PRN PO MILD/MODERATE PAIN (PS 1-7) 09/08/16 10:30 09/15/16 10:29 09/10/16 14:53 1 TAB Senna/Docusate Sodium 1 tab BID PO 08/28/16 21:00 09/30/16 20:59 09/12/16 20:24 1 TAB Sodium Chloride 2 spray Q2HP PRN NA NASAL DRYNESS 09/02/16 09:30 10/02/16 09:29 Allergies Coded Allergies: Penicillins (Verified Allergy, Mild, RASH, 08/28/16) Heparin (Verified Adverse Reaction, Severe, HIT - 09/2016, 09/10/16) PENNY BERGMAN MD Sep 13, 2016 07:57
[2016-09-13] MEDS: BENZONATATE 100 MG CAP PO SCH ×3 (08:31→20:28)
[2016-09-13] MEDS: GABAPENTIN 100 MG CAP PO SCH (08:31)
[2016-09-13] MEDS: DOCUSATE SODIUM 100 MG CAP PO SCH ×2 (08:31→20:28)
[2016-09-13] MEDS: SENOKOT S TAB PO SCH ×2 (08:31→20:28)
[2016-09-13] MEDS: LIDOCAINE 5% (LIDODERM) PATCH TD SCH (08:36)
[2016-09-13] MEDS: APIXABAN 2.5 MG TAB (ELIQUIS) PO SCH ×2 (08:36→20:27)
[2016-09-13] MEDS: diltiaZEM **CD** 180 MG CAP PO SCH (08:36)
[2016-09-13] MEDS: FLUTICASONE PROP 0.05% NASAL SPRAY 16 GM (FLONASE) SCH ×2 (08:36→20:28)
[2016-09-13 10:00] VITALS: BP 112/55
--- NOTE | 2016-09-13 10:23 | IPN ---
DATE: 09/12/2016 SUBJECTIVE: The patient was seen and examined at the bedside. He is lying in bed. He does not have any active complaints. REVIEW OF SYSTEMS: The patient denies any fevers, chills, rigors, headaches, nausea, vomiting, chest pain, shortness of breath, pain in the abdomen, constipation, diarrhea. He is status post left below the knee amputation a few days ago. The rest of the review of systems is negative. OBJECTIVE: VITAL SIGNS: Temperature is 98.5 degrees Fahrenheit, blood pressure is 147/67, pulse is 75, respiratory rate of 14, saturating 97% on room air. INTAKE AND OUTPUT: There is no urine output recorded. The patient had hemodialysis done yesterday and 3 liters of ultrafiltration was done. Weight on the bed scale is 93.7 kg. PHYSICAL EXAMINATION: GENERAL: Patient is awake, alert, and oriented times three, lying in bed. No apparent distress. HEAD AND NECK EXAMINATION: Extraocular muscles intact. Pupils equally round, reactive to light and accommodation. Neck is supple. There is no jugular venous distention (JVD). The patient has a right IJ triple lumen catheter. CARDIOVASCULAR: S1, S2. The patient's heart rate is irregular and he has an ejection systolic murmur. RESPIRATORY: Chest is clear to auscultation bilaterally. Bilaterally good air entry. ABDOMEN: Soft. Positive bowel sounds. Nontender. No ascites. No hepatosplenomegaly. EXTREMITIES: Patient has a left below knee amputation with a compression dressing on. The patient has an ulcer on the right heel, which is covered by a dressing as well. CENTRAL NERVOUS SYSTEM (CLEANING ATTENDANT): No focal neurological deficit. Power is 5/5 in all extremities. SKIN: The patient has a dressing on the left below knee amputation and right heel ulcer. Otherwise, no rashes or ulcer. AV access: The patient has a left arm AV fistula with positive thrill and bruit. PSYCHIATRIC: Normal mood and affect. LABORATORY DATA: CBC showed a WBC of 6.1, hemoglobin 8.7, platelets are 107. BMP showed sodium 138, potassium 4.1, chloride 100, bicarbonate 32, BUN 18, creatinine 4.4. Microbiology: No positive cultures so far. MEDICATIONS: Patient's medications were all reviewed by me. ASSESSMENT: 65-year-old male with past medical history of end-stage renal disease. This admission was secondary to anemia. He also had left foot osteomyelitis, status post left below the knee amputation. Nephrology service following for management of end-stage renal disease. PLAN: 1. End stage renal disease on hemodialysis. The patient gets hemodialysis every Wednesday, Wednesday and Wednesday. He was dialyzed according to his regular schedule yesterday. Next hemodialysis session will be on Wednesday. 2. Anemia and end stage renal disease. The patient got 2 units of packed red blood cell transfusion with hemodialysis yesterday and he is also on Aranesp 300 mcg intravenously with hemodialysis every week. 3. Hypertension. Blood pressure is acceptable at this time. Continue current dose of diltiazem 180 mg by mouth daily. 4. History of atrial fibrillation. Currently, he is rate controlled. The patient is on Eliquis for anticoagulation. He is also on digoxin and diltiazem. 5. Left foot gangrene, status post left below the knee amputation. The patient's antibiotics have been stopped at this time. No evidence of infection. The rest of the management of stump is as per surgical service.
[2016-09-13 14:00] VITALS: BP 122/58
[2016-09-13 18:00] VITALS: BP 138/65
[2016-09-13] MEDS: **NOTE PATIENT COMMENT** MISC XX SCH (20:28)
[2016-09-13 22:00] VITALS: BP 153/67
[2016-09-14 02:00] VITALS: BP 151/69
[2016-09-14 05:54] LABS: BASO % 0.1 % (0.0-1.0); EOS # 0.1 K/mm3 (0.0-0.50); EOS % 2.1 % (0.0-3.0); LARGE UNSTAINED CELL # 0.1 K/mm3 (0.0-0.4); LARGE UNSTAINED CELL % 1.2 % (0.0-4.0); LYMPH % 14.5 % (24.0-44.0); MEAN CORPUSCULAR HEMOGLOBIN 26.7 pg (27.0-33.0); MEAN CORPUSCULAR HGB CONC 31.2 g/dl (32.0-36.5); MEAN CORPUSCULAR VOLUME 85.6 fl (80.0-96.0); MONO # 0.3 K/mm3 (0.0-0.8); MONO % 4.7 % (0.0-5.0); NEUTROPHILS # 5.2 K/mm3 (1.8-7.7); NEUTROPHILS % 77.4 % (36.0-66.0); PLATELET COUNT, AUTOMATED 123 k/mm3 (150-450); RED CELL DISTRIBUTION WIDTH 19.9 % (11.5-14.5); WHITE BLOOD COUNT 6.7 K/mm3 (4.0-10.0)
[2016-09-14 06:00] VITALS: BP 150/67
[2016-09-14 06:03] LABS: CALCIUM LEVEL 8.9 MG/DL (8.8-10.2); CREATININE FOR GFR 7.83 MG/DL (0.70-1.30); GLOMERULAR FILTRATION RATE 8.9 (>49); POTASSIUM SERUM 4.4 MEQ/L (3.5-5.1)
[2016-09-14] MEDS: BENZONATATE 100 MG CAP PO SCH ×3 (06:53→20:56)
[2016-09-14] MEDS: DOCUSATE SODIUM 100 MG CAP PO SCH ×2 (06:53→20:56)
[2016-09-14] MEDS: GABAPENTIN 100 MG CAP PO SCH (06:53)
[2016-09-14] MEDS: SENOKOT S TAB PO SCH ×2 (06:54→20:56)
[2016-09-14] MEDS: diltiaZEM **CD** 180 MG CAP PO SCH (06:54)
[2016-09-14] MEDS: DIGOXIN 0.125 MG TAB PO SCH (06:54)
[2016-09-14] MEDS: APIXABAN 2.5 MG TAB (ELIQUIS) PO SCH ×2 (06:55→20:57)
[2016-09-14] MEDS: IPRATROPIUM 0.5MG/ALBUTEROL 2.5MG INH SOL UD 3ML (DUONEB)(J7620) NEB SCH ×2 (07:19→19:25)
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
[2016-09-14] MEDS: LIDOCAINE 5% (LIDODERM) PATCH TD SCH (08:53)
[2016-09-14] MEDS: FLUTICASONE PROP 0.05% NASAL SPRAY 16 GM (FLONASE) SCH ×2 (08:53→20:57)
[2016-09-14] MEDS: guaiFENesin ER 600 MG TAB PO SCH ×2 (08:56→20:56)
[2016-09-14 14:00] VITALS: BP 122/61
--- NOTE | 2016-09-14 15:06 | REP ---
Chest x-ray: Portable AP view. History: Abnormal lung sounds. Comparison study September 03, 2016. Findings: Right internal jugular line has been removed in the interval since the prior study. Cardiomegaly is again observed unchanged. Pulmonary vasculature is cephalized. There is subtle pleural opacity in the bases. This suggests small bilateral effusions. Impression: Mild CHF pattern. Signed by Jorge Perea MD 09/14/2016 03:14 P
[2016-09-14 18:00] VITALS: BP 144/64
[2016-09-14] MEDS: **NOTE PATIENT COMMENT** MISC XX SCH (20:57)
[2016-09-14 22:00] VITALS: BP 150/66
[2016-09-15] VITALS (7 sets, daily range): BP systolic 124–150; BP diastolic 60–71
[2016-09-15 05:50] LABS: BASO % 0.1 % (0.0-1.0); EOS # 0.1 K/mm3 (0.0-0.50); EOS % 2.1 % (0.0-3.0); LARGE UNSTAINED CELL # 0.1 K/mm3 (0.0-0.4); LARGE UNSTAINED CELL % 2.1 % (0.0-4.0); LYMPH % 15.3 % (24.0-44.0); MEAN CORPUSCULAR HEMOGLOBIN 25.6 pg (27.0-33.0); MEAN CORPUSCULAR VOLUME 85.4 fl (80.0-96.0); MONO # 0.3 K/mm3 (0.0-0.8); MONO % 4.6 % (0.0-5.0); NEUTROPHILS # 4.4 K/mm3 (1.8-7.7); NEUTROPHILS % 75.9 % (36.0-66.0); PLATELET COUNT, AUTOMATED 118 k/mm3 (150-450); RED CELL DISTRIBUTION WIDTH 19.7 % (11.5-14.5); WHITE BLOOD COUNT 5.8 K/mm3 (4.0-10.0)
[2016-09-15 06:07] LABS: CALCIUM LEVEL 8.8 MG/DL (8.8-10.2); CREATININE FOR GFR 4.94 MG/DL (0.70-1.30); GLOMERULAR FILTRATION RATE 15.2 (>49); POTASSIUM SERUM 4.2 MEQ/L (3.5-5.1)
[2016-09-15] MEDS: IPRATROPIUM 0.5MG/ALBUTEROL 2.5MG INH SOL UD 3ML (DUONEB)(J7620) NEB SCH ×2 (08:00→20:12)
--- NOTE | 2016-09-15 09:10 | IPN ---
DATE: 09/13/2016 SUBJECTIVE: Patient was seen and examined at the bedside. Today, he denies any active complaints. His right internal jugular (IJ) triple lumen catheter was removed yesterday. He has a peripheral line in the right arm. He feels much better. He denies any active complaint apart from pain in the left [id number] site. REVIEW OF SYSTEM: Patient denies any fever, chills, rigors, headache, chest pain, so9b, nausea, vomiting, pain in abdomen, constipation. Patient does report left lower extremity pain at amputation site, and he also complains of some cough. OBJECTIVE: VITAL SIGNS: Temperature is 98.9 degrees Fahrenheit. Blood pressure is 132/62. Pulse is 80, Respiratory rate of 18. Saturating 97% on room air. INTAKE AND OUTPUT: There is no urine output recorded. Weight on the bed scale is 95.3 kg today. PHYSICAL EXAMINATION: GENERAL: Patient is awake, alert, oriented times three, laying in bed, no apparent distress. HEAD AND NECK EXAM: Extraocular muscles intact. Pupils equally round, reactive to light. Neck is supple. Patient has a slightly elevated jugular venous distention (JVD) and right-sided triple lumen catheter has been removed. CARDIOVASCULAR: S1, S2. Patient's heart rate is irregular and he has an ejection systolic murmur. RESPIRATORY: Chest is clear to auscultation bilaterally. Bilateral equal air entry. No rales or rhonchi. ABDOMEN: Is soft, positive bowel sounds, nontender. No ascites. No hepatosplenomegaly. EXTREMITIES: Patient has a left [id number]-fecfyazewn with a compression dressing on it and he has an ulcer on the right heel as well, which is covered by dressing. CENTRAL NERVOUS SYSTEM (UNDERWRITING SUPPORT MANAGER): No focal neurological deficit. Power is 5/5 in all extremities. SKIN: As mentioned above, patient has a dressing on the left llbej-wsxn-jxvyjbrbrc site and he a dressing on the right heel ulcer site as well. Otherwise, there are no other rashes or ulcer. AV ACCESS: Patient has a left forearm AV fistula with positive thrill and bruit. PSYCH: Normal mood and affect. LAB REVIEW: CBC showed a WBC 7.3, hemoglobin 9.2, platelets are 121. BMP showed sodium 133, potassium 4.4, chloride 98, bicarbonate is 30, BUN 28, creatinine 6.09. MEDICATIONS: Patient's current medications were all reviewed by me. Patient is not on any antibiotics at this time. ASSESSMENT: 65-year-old male with past medical history of end-stage renal disease, this admission was secondary to anemia. Endoscopies were found to be negative. He was also found to have left foot osteomyelitis and gangrene, status post left fpoak-jwzc-ioqcsyjurt amputation during this admission. Nephrology service following for management of end-stage renal disease. PLAN: 1. End-stage renal disease on hemodialysis. Patient's hemodialysis schedule is Wednesday, Wednesday, Wednesday. He will be dialyzed according to his regular schedule tomorrow. Patient has a slightly elevated JVD. I will try to do an ultrafiltration (UF) of around 3.5 to 4 kg as tolerated by his blood pressure tomorrow. 2. Anemia in end-stage renal disease. Patient got 2 units of packed red blood cells (PRBC) transfusion with hemodialysis on Wednesday. He also got a dose of Aranesp 300 mcg with hemodialysis. Continue the current dose of Aranesp. No need of blood transfusion at this time. 3. Hypertension. Blood pressure is acceptable at this time. Continue the current dose of diltiazem 180 mg daily. 4. History of atrial fibrillation. Currently, atrial fibrillation (AFib) is rated controlled. He is on Eliquis for anticoagulation and he is on digoxin and diltiazem for rate control. 5. Left foot gangrene, status post left kadgw-tqxc-wjmurunoki amputation. Patient's antibiotics have been stopped. Rest of the management as per surgical service.
[2016-09-15] MEDS: FLUTICASONE PROP 0.05% NASAL SPRAY 16 GM (FLONASE) SCH ×2 (09:38→22:02)
[2016-09-15] MEDS: APIXABAN 2.5 MG TAB (ELIQUIS) PO SCH ×2 (09:44→22:01)
[2016-09-15] MEDS: BENZONATATE 100 MG CAP PO SCH ×3 (09:44→22:01)
[2016-09-15] MEDS: SENOKOT S TAB PO SCH ×2 (09:44→22:00)
[2016-09-15] MEDS: guaiFENesin ER 600 MG TAB PO SCH ×2 (09:44→22:01)
[2016-09-15] MEDS: diltiaZEM **CD** 180 MG CAP PO SCH (09:44)
[2016-09-15] MEDS: DOCUSATE SODIUM 100 MG CAP PO SCH ×2 (09:44→22:01)
[2016-09-15] MEDS: GABAPENTIN 100 MG CAP PO SCH (09:44)
[2016-09-15] MEDS: MIRALAX *UNIT DOSE* 17GM PACKET PO SCH ×2 (09:44→22:01)
[2016-09-15] MEDS: LIDOCAINE 5% (LIDODERM) PATCH TD SCH (09:45)
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
--- NOTE | 2016-09-15 13:41 | IPN ---
DATE: 09/14/2016 SUBJECTIVE: Patient was seen and examined during hemodialysis procedure today. He is tolerating the hemodialysis procedure well. He does not have any active complaints. REVIEW OF SYSTEM: Patient denies any fever, chills, rigors, headache, nausea, vomiting, chest pain, shortness of breath. He does complaint of some cough, which is dry. He denies any pain in the abdomen, constipation, or diarrhea. He complains of some pain in the left lower extremity below knee amputation site. OBJECTIVE: VITAL SIGNS: Temperature is 99.3 degrees Fahrenheit. Blood pressure is 150/67. Pulse is 75. Respiratory rate of 18. Saturating 97% on room air. INTAKE AND OUTPUT: There is no urine output recorded. Weight on the bed scale is 97.6 kg. PHYSICAL EXAMINATION: GENERAL: Patient is awake, alert, oriented times three, laying in bed, no apparent distress. HEAD AND NECK EXAM: Extraocular muscles intact. Pupils equally round, reactive to light. Neck is supple. There is no jugular venous distention (JVD). CARDIOVASCULAR: S1, S2. Regular rate. He has an ejection systolic murmur. RESPIRATORY: Chest is clear to auscultation bilaterally. Bilateral equal air entry. ABDOMEN: Soft, positive bowel sounds, nontender. No ascites. No hepatosplenomegaly. EXTREMITIES: Patient has a left nyjir-dbns-vhoogavhhb with a dressing on and he has an ulcer on the right heel with aq dressing as well. CENTRAL NERVOUS SYSTEM (DIRECTOR SPEECH LANGUAGE): No focal neurological deficit. Power is 5/5 in all extremities. SKIN: The patient has a dressing on the left jxkgj-beik-mwtkrfmnig site and a dressing on the right heel ulcer. Otherwise, there are no other ulcers or rashes. AV ACCESS: Patient has a left arm AV fistula, which is being used for hemodialysis at this time. PSYCHIATRIC: Normal mood and affect. LABORATORY REVIEW: CBC showed a WBC of 6.7, hemoglobin 9.2, platelets are 123. BMP showed sodium 132, potassium 4.4, chloride 96, bicarbonate is 29, BUN 38, creatinine 7.8, calcium 8.9. MEDICATIONS: Patient's medications were all reviewed by me. There is no new medication since yesterday. ASSESSMENT: 65-year-old male with past medical history of end-stage renal disease on hemodialysis. Initially this admission was secondary to anemia. He also had a left foot osteomyelitis. He is status post left below knee amputation. Nephrology service following for management of end stage renal disease. PLAN: 1. End-stage renal disease on hemodialysis. Patient's regular schedule is Wednesday, Wednesday, Wednesday. The patient is being dialyzed according to his regular schedule. I shall try to do an ultrafiltration of about 3 to 3.5 kg as tolerated by his blood pressure. 2. Anemia and end-stage renal disease. Patient's hemoglobin today is 9.2, which is stable as compared with yesterday. He also gets Aranesp 300 mcg intravenously with hemodialysis. Continue the current dose of Aranesp. 3. Hypertension. Blood pressure is slightly elevated today. He takes Diltiazem 180 mg daily. Continue current dose of Diltiazem. Hemodialysis and ultrafiltration will also help lower the blood pressure today. 4. History of atrial fibrillation. Currently, atrial fibrillation (AFib) is rate controlled with digoxin and diltiazem and he is anticoagulated with Eliquis, which is renally dosed. 5. Left foot gangrene, status post left hhjhc-bmul-ncrcbmeuhl amputation. Patient gets dressing changes by surgery and as per reports his wound is clean. He is off of antibiotics at this time. The rest of the management is as per surgical service.
[2016-09-15] MEDS: OLOPATADINE 0.1% OPHTH SOL 5ML(PATANOL) OU PRN (13:56)
[2016-09-15] MEDS: POLYVINYL ALCOHOL OPHTH SOLN 15 ML(LIQUITEARS) OU SCH ×3 (13:56→22:02)
[2016-09-15] MEDS: **NOTE PATIENT COMMENT** MISC XX SCH (22:08)
[2016-09-16 02:00] VITALS: BP_SYST 140; BP_SYST 141; BP_DIAS 65
[2016-09-16 06:00] VITALS: BP_SYST 137; BP_SYST 154; BP_DIAS 65; BP_DIAS 67
[2016-09-16] MEDS: LIDOCAINE 5% (LIDODERM) PATCH TD SCH (06:51)
[2016-09-16] MEDS: diltiaZEM **CD** 180 MG CAP PO SCH (06:52)
[2016-09-16] MEDS: BENZONATATE 100 MG CAP PO SCH ×3 (06:52→20:10)
[2016-09-16] MEDS: guaiFENesin ER 600 MG TAB PO SCH ×2 (06:52→20:10)
[2016-09-16] MEDS: DOCUSATE SODIUM 100 MG CAP PO SCH ×2 (06:52→20:08)
[2016-09-16] MEDS: APIXABAN 2.5 MG TAB (ELIQUIS) PO SCH ×2 (06:52→20:10)
[2016-09-16] MEDS: GABAPENTIN 100 MG CAP PO SCH (06:53)
[2016-09-16] MEDS: DIGOXIN 0.125 MG TAB PO SCH (06:53)
[2016-09-16] MEDS: SENOKOT S TAB PO SCH ×2 (06:53→20:08)
[2016-09-16] MEDS: FLUTICASONE PROP 0.05% NASAL SPRAY 16 GM (FLONASE) SCH ×2 (06:54→20:09)
[2016-09-16] MEDS: POLYVINYL ALCOHOL OPHTH SOLN 15 ML(LIQUITEARS) OU SCH ×3 (06:54→20:09)
[2016-09-16 07:05] LABS: BASO % 0.2 % (0.0-1.0); EOS # 0.1 K/mm3 (0.0-0.50); EOS % 2.2 % (0.0-3.0); LARGE UNSTAINED CELL # 0.1 K/mm3 (0.0-0.4); LARGE UNSTAINED CELL % 1.7 % (0.0-4.0); LYMPH % 15.3 % (24.0-44.0); MEAN CORPUSCULAR HEMOGLOBIN 26.4 pg (27.0-33.0); MEAN CORPUSCULAR HGB CONC 30.8 g/dl (32.0-36.5); MEAN CORPUSCULAR VOLUME 85.6 fl (80.0-96.0); MONO # 0.3 K/mm3 (0.0-0.8); MONO % 5.7 % (0.0-5.0); NEUTROPHILS # 4.3 K/mm3 (1.8-7.7); NEUTROPHILS % 74.8 % (36.0-66.0); PLATELET COUNT, AUTOMATED 120 k/mm3 (150-450); RED CELL DISTRIBUTION WIDTH 19.7 % (11.5-14.5); WHITE BLOOD COUNT 5.7 K/mm3 (4.0-10.0)
[2016-09-16 07:25] LABS: CALCIUM LEVEL 8.9 MG/DL (8.8-10.2); CREATININE FOR GFR 6.91 MG/DL (0.70-1.30); GLOMERULAR FILTRATION RATE 10.3 (>49); POTASSIUM SERUM 4.5 MEQ/L (3.5-5.1)
[2016-09-16] MEDS: IPRATROPIUM 0.5MG/ALBUTEROL 2.5MG INH SOL UD 3ML (DUONEB)(J7620) NEB SCH ×2 (08:02→20:41)
[2016-09-16] MEDS: MIRALAX *UNIT DOSE* 17GM PACKET PO SCH ×2 (09:00→20:08)
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
--- NOTE | 2016-09-16 13:56 | IPN ---
DATE: 09/15/2016 SUBJECTIVE: Patient was seen and examined at the bedside today. He got his hemodialysis done yesterday. Ultra filtration was 3.5 liters. The patient reports having cough all night last night. He did report that the cough improved a little bit after his hemodialysis session. The patient is also complaining of dry eyes. REVIEW OF SYSTEMS: The patient denies any fever, chills, rigors, headache, chest pain, palpitations, shortness of breath. He does complain of cough. He denies any nausea or vomiting, pain in abdomen, or constipation. The left below knee amputation site pain is better controlled at this time. The rest of the review of systems is negative. OBJECTIVE: VITAL SIGNS: Temperature 99 degrees Fahrenheit. Blood pressure is 141/65. Pulse is 76. Respiratory rate 18. Saturating 99% on room air. Intake and output: Ultra filtration done with hemodialysis was 3.8 liters. Weight on the bed scale today 94.6 kg. PHYSICAL EXAM: GENERAL: Patient is awake, alert and oriented times three, laying in bed, in no apparent distress. HEAD AND NECK EXAM: Extraocular muscles intact. Patient has a slight squint. Pupils are equally round and reactive to light. Neck is supple. There is no jugular venous distention (JVD). CARDIOVASCULAR: S1, S2. Patient's heart rate is irregular and he has a grade 3/6 systolic ejection murmur. RESPIRATORY: Chest is clear to auscultation bilaterally. Bilateral equal air entry. No rales or rhonchi. ABDOMEN: Soft. Positive bowel sounds. Nontender. No ascites. No hepatosplenomegaly. EXTREMITIES: Patient has a left below knee amputation with a compression dressing on. He has an ulcer on the right heel with a dressing on. CENTRAL NERVOUS SYSTEM: No focal neurological deficit. Power is 5/5 in all extremities. SKIN: No other rashes or ulcers apart from right heel ulcer and left below knee amputation. AV ACCESS: Patient has a left forearm AV fistula with positive thrill and bruit. LAB REVIEW: CBC showed a WBC of 5.8, hemoglobin 9 which is stable as compared with yesterday, and platelets are 118. BMP showed sodium 134, potassium 4.2, chloride 100, bicarbonate 29, BUN 21, creatinine 4.94. MEDICATIONS: Patient's current medications were all reviewed by me. ASSESSMENT: 65-year-old male with past medical history of end stage renal disease on hemodialysis. This admission was secondary to anemia. Endoscopies were found to be negative. During this admission, he was also found to have left foot osteomyelitis and gangrene. Status post left below knee amputation. During this admission, nephrology service following for management of end stage renal disease. PLAN: 1. End stage renal disease on hemodialysis. Patient gets hemodialysis every Wednesday, Wednesday, Wednesday. He got dialysis yesterday. Next session of hemodialysis will be tomorrow. 2. Anemia and end stage renal disease. Last transfusion was on Wednesday. Hemoglobin is stable at this time. Continue current dose of Aranesp 300 mcg at hemodialysis. 3. Hypertension. Blood pressure is currently well controlled. Continue current dose of diltiazem 180 mg by mouth daily. 4. History of atrial fibrillation. Continue current dose of Eliquis, digoxin and diltiazem. 5. Dry eyes. Patient will be given artificial tears for his dry eyes and itching. 6. Cough. Patient's chest x-ray done yesterday showed mild vascular congestion and fluid overload. He got hemodialysis done yesterday. Lungs are clear to auscultation at this time. The patient is not on AMISHA inhibitor. Continue current dose of Mucinex 600 mg twice a day for cough.
[2016-09-16 14:18] LABS: HEPATITIS C QUANTITATION HCV Not Detected IU/mL (.)
[2016-09-16 18:00] VITALS: BP 132/63
[2016-09-16] MEDS: LACTIC ACID 12% LOTION 225 GM BTL TOP SCH (18:11)
[2016-09-16] MEDS: **NOTE PATIENT COMMENT** MISC XX SCH (20:08)
[2016-09-16 22:00] VITALS: BP 152/69
[2016-09-17 02:00] VITALS: BP 131/61
[2016-09-17 06:00] VITALS: BP_SYST 129; BP_SYST 135; BP_DIAS 65; BP_DIAS 72
[2016-09-17 07:07] LABS: BASO % 0.2 % (0.0-1.0); EOS # 0.1 K/mm3 (0.0-0.50); EOS % 2.1 % (0.0-3.0); LARGE UNSTAINED CELL # 0.1 K/mm3 (0.0-0.4); LARGE UNSTAINED CELL % 1.7 % (0.0-4.0); LYMPH % 15.6 % (24.0-44.0); MEAN CORPUSCULAR HGB CONC 30.7 g/dl (32.0-36.5); MEAN CORPUSCULAR VOLUME 84.7 fl (80.0-96.0); MONO # 0.3 K/mm3 (0.0-0.8); MONO % 6.1 % (0.0-5.0); NEUTROPHILS # 4.2 K/mm3 (1.8-7.7); NEUTROPHILS % 74.4 % (36.0-66.0); PLATELET COUNT, AUTOMATED 129 k/mm3 (150-450); RED CELL DISTRIBUTION WIDTH 19.4 % (11.5-14.5); WHITE BLOOD COUNT 5.6 K/mm3 (4.0-10.0)
[2016-09-17 07:13] LABS: CALCIUM LEVEL 9.1 MG/DL (8.8-10.2); CREATININE FOR GFR 4.45 MG/DL (0.70-1.30); GLOMERULAR FILTRATION RATE 17.1 (>49); POTASSIUM SERUM 4.1 MEQ/L (3.5-5.1)
[2016-09-17] MEDS: IPRATROPIUM 0.5MG/ALBUTEROL 2.5MG INH SOL UD 3ML (DUONEB)(J7620) NEB SCH ×2 (07:16→19:15)
[2016-09-17] MEDS: MIRALAX *UNIT DOSE* 17GM PACKET PO SCH ×2 (09:00→20:27)
[2016-09-17] MEDS: ERYTHROMYCIN OPHTH OINT OD SCH ×3 (09:00→20:29)
[2016-09-17] MEDS: SENOKOT S TAB PO SCH ×2 (09:00→20:28)
[2016-09-17] MEDS: DOCUSATE SODIUM 100 MG CAP PO SCH ×2 (09:00→20:28)
[2016-09-17 09:30] VITALS: BP 128/62
[2016-09-17] MEDS: guaiFENesin ER 600 MG TAB PO SCH ×2 (09:40→20:28)
[2016-09-17] MEDS: BENZONATATE 100 MG CAP PO SCH ×3 (09:40→21:12)
[2016-09-17] MEDS: GABAPENTIN 100 MG CAP PO SCH (09:40)
[2016-09-17] MEDS: diltiaZEM **CD** 180 MG CAP PO SCH (09:43)
[2016-09-17] MEDS: FLUTICASONE PROP 0.05% NASAL SPRAY 16 GM (FLONASE) SCH ×2 (09:44→20:29)
[2016-09-17] MEDS: OLOPATADINE 0.1% OPHTH SOL 5ML(PATANOL) OU PRN (09:45)
[2016-09-17] MEDS: LIDOCAINE 5% (LIDODERM) PATCH TD SCH (09:45)
[2016-09-17] MEDS: POLYVINYL ALCOHOL OPHTH SOLN 15 ML(LIQUITEARS) OU SCH ×3 (09:45→20:29)
[2016-09-17] MEDS: LACTIC ACID 12% LOTION 225 GM BTL TOP SCH (09:46)
[2016-09-17 10:17] LABS: UNFRACTIONATED HEPARIN HI DOSE 2 % (0-20); UNFRACTIONATED HEPARIN LOW DOS 1 % (0-20)
--- NOTE | 2016-09-17 10:38 | IPN ---
DATE: 09/16/2016 SUBJECTIVE: Patient does not offer any complaints this morning. Denies any fever or chills. Denies any chest pain, shortness of breath. Denies any cough or phlegm. Patient is going for hemodialysis this morning. Denies any nausea, vomiting, diarrhea. There has not been any further black stools. PHYSICAL EXAMINATION: Vital signs: Temperature 98.5, pulse 72, blood pressure 137/65, pulse oximetry 90% on room air. Respiratory rate 18. General: Patient awake, alert, oriented times three, sitting up in bed in no acute distress. HEENT: Normocephalic, atraumatic. Moist mucous membranes. Anicteric eyes. Chest: Clear to auscultation. Cardiovascular: S1, S2 regular. There is a systolic murmur in the aortic area. Abdomen: Soft, nontender. Bowel sounds present. Extremities: There is left below knee amputation with dressing. On the right, there is a chronic ulcer on the right heel with dressing. Skin: There is dressing both on the left and the right lower extremities. AV access. Patient has a left AV fistula. Central venous system: There is no focal neuro deficits. LABORATORY DATA: WBC 5.7, hemoglobin 9.5, platelets 120. Sodium 132, potassium 4.5, chloride 99, bicarbonate 24, BUN 34, creatinine 6.9, glucose 101, calcium 8.9. ASSESSMENT AND PLAN: This is a 66-year-old male. He is already on hemodialysis Wednesday, Wednesday, Wednesday, initially admitted for anemia due to acute blood loss and later on developed left foot osteomyelitis requiring left below knee amputation. He is already on hemodialysis Wednesday, Wednesday, Wednesday. Will schedule for AST today. Ultrafiltration 4 liters targeted, he tolerated by that pressure. [place] or chronic disease and acute blood loss anemia. Patient received almost 8 units of blood transfusion during hospitalization. At present, hemoglobin and hematocrit is stable and almost at goal. We will continue with Aranesp. Acute blood loss anemia was thought to be due to radiation proctitis and had underwent EGD and colonoscopy in the hospital. Management as per primary team. Hypertension. Hemoglobin and hematocrit well controlled. We will continue with diltiazem. History of atrial fibrillation. Rate is controlled with digoxin and diltiazem. We will continue with Eliquis. Left foot osteomyelitis and gangrene status post left below knee amputation. Management as per surgery. Right heel ulcer. Management as per primary team and surgery. 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 Serotonin release assay has been ordered. [facility]
[2016-09-17] MEDS: APIXABAN 2.5 MG TAB (ELIQUIS) PO SCH ×2 (11:30→20:28)
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
--- NOTE | 2016-09-17 12:41 | IPN ---
DATE: 09/16/2016 The patient seen and examined at bedside. He states he is doing reasonably well. Minimal pain in his left amputation site. He denies any pain presently in his right foot. Vitals are stable. His hemoglobin is 9.5 today. Lower extremity exam: Left leg surgical dressings are intact. Right leg wound is inspected to the right heel. There is some fibrous necrotic tissue noted into the wound base. This is debrided free. No obvious signs of purulent drainage. There are superficial excoriations to the toes that are consistent with vascular arterial ulcerations. ASSESSMENT: 66-year-old male status post left below knee amputation with right heel pressure ulceration and arterial insufficiency. PLAN: Plan for rehabilitation as indicated per surgical and primary team. Continue off loading right heel with foam boot and pillow. The heel should be suspended in air when he is in bed. The pillow should not be beneath his heel. This does not adequately off load the wound. Continue the current dressings. The wound was debrided. Once discharged, he may require repeat evaluation by vascular surgery to see if there is any possibility for reperfusion to his right lower extremity. He will follow up with me in the office once discharged.
[2016-09-17 13:43] LABS: MEAN CORPUSCULAR HEMOGLOBIN 26.5 pg (27.0-33.0); MEAN CORPUSCULAR HGB CONC 31.5 g/dl (32.0-36.5); MEAN CORPUSCULAR VOLUME 83.9 fl (80.0-96.0); RED CELL DISTRIBUTION WIDTH 19.4 % (11.5-14.5); WHITE BLOOD COUNT 5.8 K/mm3 (4.0-10.0)
--- NOTE | 2016-09-17 14:46 | REP ---
CHEST X-RAY: Two views. HISTORY: Upper respiratory infection. Comparison chest x-ray September 14, 2016. FINDINGS: Moderate cardiomegaly is again observed. There is hazy opacity at the bases and blunting is seen in the posterior pleural angles indicating bilateral pleural effusions which are small. Pulmonary vasculature is cephalized, somewhat congested, and indistinct. There is fissural thickening in the minor fissure. Mild prominent interstitium markings are seen consistent with interstitial edema. IMPRESSION: CHF pattern with small bilateral pleural effusions vascular congestion, cardiomegaly and interstitial edema. Signed by Jorge Perea MD 09/17/2016 03:39 P
[2016-09-17] MEDS ORDERED: DIGOXIN 0.125 MG TAB PO ONE (16:00)
[2016-09-17 17:00] VITALS: BP 138/63
--- NOTE | 2016-09-17 19:45 | IPN ---
DATE: 09/17/2016 SUBJECTIVE: Patient was seen and examined at the bedside today. He is lying in the bed. He does not have any active complaints. The patient got dialyzed yesterday and he tolerated the hemodialysis procedure well. REVIEW OF SYSTEMS: The patient denies any fever, chills, rigors, headache, chest pain, shortness of breath, cough, pain in the abdomen, constipation or diarrhea. The rest of the review of systems is negative. OBJECTIVE: VITAL SIGNS: Temperature 98 degrees Fahrenheit. Blood pressure is 138/63. Pulse is 108. Respiratory rate 18. Saturating 99% on room air. Intake and output: The patient got hemodialysis done yesterday. Ultrafiltration done with hemodialysis was 3.8 liters. Weight on the bed scale is 94.7 kg today. PHYSICAL EXAMINATION: GENERAL: Patient is awake, alert and oriented times three, laying in bed, in no apparent distress. HEAD AND NECK EXAM: Extraocular muscles intact. Pupils are equally round and reactive to light. The patient has a slight squint. Neck is supple. There is no jugular venous distention (JVD). CARDIOVASCULAR: S1, S2. Patient's heart rate is irregular and he has a grade 3/6 systolic ejection murmur in the aortic area. RESPIRATORY: Chest is clear to auscultation bilaterally. Bilateral equal air entry. ABDOMEN: Soft. Positive bowel sounds. Nontender. No ascites. No hepatosplenomegaly. EXTREMITIES: Patient has a left below knee amputation with a dressing on. The patient has an ulcer on the right heel with a dressing. CENTRAL NERVOUS SYSTEM: No focal neurological deficit. Power is 5/5 in all extremities. SKIN: No rashes or ulcers apart from right heel ulcer and left below knee amputation. AV ACCESS: Patient has a left forearm AV fistula with positive thrill and bruit. LABORATORY REVIEW: Complete blood count (CBC) showed a WBC of 5.8, hemoglobin 9.3, platelets are 120. Basic metabolic panel (BMP) showed sodium 138, potassium 4.1, chloride 101, bicarbonate 30, BUN 16, creatinine 4.4. MEDICATIONS: Patient's current medications were reviewed by me. ASSESSMENT: 65-year-old male with past medical history of end stage renal disease on hemodialysis. This admission was secondary to anemia, requiring multiple transfusions. He was also found to have left foot osteomyelitis and gangrene, status post left below knee amputation during this admission. Nephrology following for management of end stage renal disease. PLAN: 1. End stage renal disease on hemodialysis. Patient gets hemodialysis every Wednesday, Wednesday, Wednesday. Last dialysis was done yesterday. Next hemodialysis session will be tomorrow. 2. Anemia and end stage renal disease. The patient's hemoglobin is stable. Continue current dose of Aranesp 300 mcg with hemodialysis every week. 3. Hypertension. Blood pressure is well controlled with current dose of diltiazem. 4. History of atrial fibrillation. Continue current dose of Eliquis, digoxin and diltiazem. The rest of the management as per primary team. 5. Dry cough. Patient does not have any signs of fluid overload. He is not on any ojafmsohmgd-auezecedva-vgzdzk (AMISHA) inhibitor. He is getting Mucinex as needed for cough.
[2016-09-17] MEDS: **NOTE PATIENT COMMENT** MISC XX SCH (20:32)
[2016-09-18] MEDS: LIDOCAINE 5% (LIDODERM) PATCH TD SCH (06:32)
[2016-09-18] MEDS: BENZONATATE 100 MG CAP PO SCH ×3 (06:32→20:11)
[2016-09-18] MEDS: MIRALAX *UNIT DOSE* 17GM PACKET PO SCH ×2 (06:33→20:10)
[2016-09-18] MEDS: DIGOXIN 0.125 MG TAB PO SCH (06:36)
[2016-09-18] MEDS: GABAPENTIN 100 MG CAP PO SCH (06:38)
[2016-09-18] MEDS: APIXABAN 2.5 MG TAB (ELIQUIS) PO SCH ×2 (06:39→20:11)
[2016-09-18] MEDS: guaiFENesin ER 600 MG TAB PO SCH ×2 (06:39→20:11)
[2016-09-18] MEDS: DOCUSATE SODIUM 100 MG CAP PO SCH ×2 (06:39→20:11)
[2016-09-18] MEDS: diltiaZEM **CD** 180 MG CAP PO SCH (06:40)
[2016-09-18] MEDS: SENOKOT S TAB PO SCH ×2 (06:41→20:11)
[2016-09-18] MEDS: FLUTICASONE PROP 0.05% NASAL SPRAY 16 GM (FLONASE) SCH ×2 (06:41→20:11)
[2016-09-18] MEDS: POLYVINYL ALCOHOL OPHTH SOLN 15 ML(LIQUITEARS) OU SCH ×3 (06:42→20:12)
[2016-09-18] MEDS: ERYTHROMYCIN OPHTH OINT OD SCH ×3 (06:42→20:11)
[2016-09-18] MEDS: LACTIC ACID 12% LOTION 225 GM BTL TOP SCH (06:43)
[2016-09-18 06:44] LABS: BASO % 0.4 % (0.0-1.0); EOS # 0.2 K/mm3 (0.0-0.50); LARGE UNSTAINED CELL # 0.1 K/mm3 (0.0-0.4); LARGE UNSTAINED CELL % 1.4 % (0.0-4.0); LYMPH % 16.2 % (24.0-44.0); MEAN CORPUSCULAR HEMOGLOBIN 25.5 pg (27.0-33.0); MEAN CORPUSCULAR HGB CONC 30.5 g/dl (32.0-36.5); MEAN CORPUSCULAR VOLUME 83.6 fl (80.0-96.0); MONO # 0.3 K/mm3 (0.0-0.8); MONO % 5.7 % (0.0-5.0); NEUTROPHILS # 4.3 K/mm3 (1.8-7.7); NEUTROPHILS % 73.2 % (36.0-66.0); PLATELET COUNT, AUTOMATED 131 k/mm3 (150-450); RED CELL DISTRIBUTION WIDTH 19.3 % (11.5-14.5); WHITE BLOOD COUNT 5.9 K/mm3 (4.0-10.0)
[2016-09-18] MEDS: PERCOCET 5MG/325MG TAB PO PRN (06:49)
[2016-09-18 07:00] VITALS: BP 142/77
[2016-09-18 07:20] LABS: CALCIUM LEVEL 8.9 MG/DL (8.8-10.2); CREATININE FOR GFR 6.26 MG/DL (0.70-1.30); DIGOXIN LEVEL 0.9 NG/ML (0.5-2.0); GLOMERULAR FILTRATION RATE 11.5 (>49); POTASSIUM SERUM 4.2 MEQ/L (3.5-5.1)
[2016-09-18] MEDS: IPRATROPIUM 0.5MG/ALBUTEROL 2.5MG INH SOL UD 3ML (DUONEB)(J7620) NEB SCH ×2 (08:34→20:29)
[2016-09-18] MEDS: **NOTE PATIENT COMMENT** MISC XX SCH (20:15)
[2016-09-19 07:00] VITALS: BP 122/58
[2016-09-19] MEDS: IPRATROPIUM 0.5MG/ALBUTEROL 2.5MG INH SOL UD 3ML (DUONEB)(J7620) NEB SCH ×2 (07:22→20:00)
[2016-09-19] MEDS: MIRALAX *UNIT DOSE* 17GM PACKET PO SCH ×2 (08:34→20:07)
[2016-09-19] MEDS: LIDOCAINE 5% (LIDODERM) PATCH TD SCH (08:36)
[2016-09-19] MEDS: SENOKOT S TAB PO SCH ×2 (08:37→20:07)
[2016-09-19] MEDS: APIXABAN 2.5 MG TAB (ELIQUIS) PO SCH ×2 (08:37→20:08)
[2016-09-19] MEDS: diltiaZEM **CD** 180 MG CAP PO SCH (08:37)
[2016-09-19] MEDS: DOCUSATE SODIUM 100 MG CAP PO SCH ×2 (08:37→20:08)
[2016-09-19] MEDS: GABAPENTIN 100 MG CAP PO SCH (08:37)
[2016-09-19] MEDS: BENZONATATE 100 MG CAP PO SCH ×3 (08:37→20:07)
[2016-09-19] MEDS: guaiFENesin ER 600 MG TAB PO SCH ×2 (08:37→20:07)
[2016-09-19] MEDS: SODIUM CHLORIDE NASAL 0.65% SPRAY BTL (OCEAN) PRN (08:38)
[2016-09-19] MEDS: FLUTICASONE PROP 0.05% NASAL SPRAY 16 GM (FLONASE) SCH ×2 (08:38→20:08)
[2016-09-19] MEDS: ERYTHROMYCIN OPHTH OINT OD SCH ×3 (08:38→20:08)
[2016-09-19] MEDS: POLYVINYL ALCOHOL OPHTH SOLN 15 ML(LIQUITEARS) OU SCH ×3 (08:39→20:08)
[2016-09-19] MEDS: LACTIC ACID 12% LOTION 225 GM BTL TOP SCH (08:39)
[2016-09-19] MEDS: DIGOXIN 0.125 MG TAB PO SCH (12:43)
[2016-09-19] MEDS: **NOTE PATIENT COMMENT** MISC XX SCH (20:10)
[2016-09-20 07:00] VITALS: BP 130/55
[2016-09-20] MEDS: IPRATROPIUM 0.5MG/ALBUTEROL 2.5MG INH SOL UD 3ML (DUONEB)(J7620) NEB SCH ×2 (07:13→19:45)
[2016-09-20] MEDS ORDERED: DIGOXIN 0.125 MG TAB PO SCH (09:00)
[2016-09-20] MEDS: diltiaZEM **CD** 180 MG CAP PO SCH (09:18)
[2016-09-20] MEDS: MIRALAX *UNIT DOSE* 17GM PACKET PO SCH ×2 (09:18→19:49)
[2016-09-20] MEDS: LIDOCAINE 5% (LIDODERM) PATCH TD SCH (09:18)
[2016-09-20] MEDS: ERYTHROMYCIN OPHTH OINT OD SCH ×3 (09:18→19:50)
[2016-09-20] MEDS: GABAPENTIN 100 MG CAP PO SCH (09:18)
[2016-09-20] MEDS: guaiFENesin ER 600 MG TAB PO SCH ×2 (09:18→19:50)
[2016-09-20] MEDS: SODIUM CHLORIDE NASAL 0.65% SPRAY BTL (OCEAN) PRN (09:18)
[2016-09-20] MEDS: POLYVINYL ALCOHOL OPHTH SOLN 15 ML(LIQUITEARS) OU SCH ×3 (09:19→19:50)
[2016-09-20] MEDS: BENZONATATE 100 MG CAP PO SCH ×3 (09:19→19:50)
[2016-09-20] MEDS: APIXABAN 2.5 MG TAB (ELIQUIS) PO SCH ×2 (09:19→19:50)
[2016-09-20] MEDS: SENOKOT S TAB PO SCH ×2 (09:19→19:50)
[2016-09-20] MEDS: FLUTICASONE PROP 0.05% NASAL SPRAY 16 GM (FLONASE) SCH ×2 (09:19→19:50)
[2016-09-20] MEDS: DIGOXIN 0.125 MG TAB PO SCH (09:19)
[2016-09-20] MEDS: DOCUSATE SODIUM 100 MG CAP PO SCH ×2 (09:19→19:50)
[2016-09-20] MEDS: LACTIC ACID 12% LOTION 225 GM BTL TOP SCH (09:20)
--- NOTE | 2016-09-20 12:18 | IPN ---
DATE: 09/18/2016 SUBJECTIVE: Patient was seen and examined at the bedside today morning and during hemodialysis as well. Last 24 hour events noted. Patient was having rapid heart rate. He has history of atrial fibrillation. He was given an additional dose of digoxin. The patient denies any active complaints at this time. REVIEW OF SYSTEMS: Patient denies any fever or chills, rigors, headache, nausea, vomiting, chest pain, shortness of breath, pain in abdomen, constipation, diarrhea. Rest of review of systems is negative. OBJECTIVE: VITAL SIGNS: Temperature 98.2 degrees Fahrenheit. Blood pressure 142/77. Pulse 124. Respiratory rate 16. Saturating 93% on room air. Intake and output: There is no urine output recorded. Weight on the bed scale today is 95.2 kg. PHYSICAL EXAM: GENERAL: Patient is awake, alert, oriented times three, laying in bed. No apparent distress. HEAD AND NECK EXAM: Extraocular muscles intact. Pupils equally round and reactive to light and accommodation. Patient has a squint. Neck is supple. There is no jugular venous distention (JVD). CARDIOVASCULAR: S1, S2. Patient has tachycardia and irregular heart rate. He has a grade 3/6 systolic murmur in the aortic area. RESPIRATORY: Chest is clear to auscultation bilaterally. Bilateral equal air entry. ABDOMEN: Soft. Positive bowel sounds. Nontender. No ascites. EXTREMITIES: Patient has a left below knee amputation with a dressing on and patient has a dressing on the right heel as well. CENTRAL NERVOUS SYSTEM (GARNETT FIXER): No focal neurological deficit. Power is 5/5 in all extremities. SKIN: No rashes or ulcers apart from the right heel ulcer and the left below knee amputation dressing. AV ACCESS: Patient has a left forearm AV fistula which is used for hemodialysis. LAB REVIEW: CBC showed a WBC of 5.9, hemoglobin 9.3. BMP showed sodium 136, potassium 4.2, chloride 100, bicarbonate 29, BUN 27, creatinine 6.26. Digoxin level was 0.9. CURRENT MEDICATIONS: Patient's medications are all reviewed by me. Pertinent medications include: - digoxin 0.125 mg by mouth Wednesday, Wednesday, Wednesday - diltiazem 180 mg by mouth daily - Aranesp 300 mcg IV with hemodialysis ASSESSMENT: 66-year-old male with past medical history of end stage renal disease on hemodialysis. This admission was secondary to severe anemia requiring multiple transfusions. He was also found to have left foot osteomyelitis and gangrene status post left below knee amputation during this admission. Nephrology following for management of end stage renal disease. PLAN: 1. End stage renal disease, on hemodialysis. Patient is being dialyzed according to his regular Wednesday, Wednesday, Wednesday schedule. Next hemodialysis session will be on Wednesday. 2. Anemia in end stage renal disease. Continue current dose of Aranesp 300 mcg IV with hemodialysis every week. His hemoglobin is 9.3, which is slightly below target of above 10. 3. Atrial fibrillation with rapid ventricular response. Patient is already on diltiazem 180 mg by mouth daily and he is on Eliquis. His heart rate was fast yesterday, he was given an additional dose of digoxin yesterday. The patient is on digoxin Wednesday, Wednesday, Wednesday. It will need to be increased to every day. His heart rate is uncontrolled. 4. Hypertension. Blood pressure is acceptable at this time with current dose of diltiazem 180 mg by mouth daily. Although if his heart rate does not improve, diltiazem dose might have to be increased. 5. Left below knee amputation. Currently patient has a dressing on and dressing is clean. Rest of the management is as per surgical service.
[2016-09-20] MEDS: **NOTE PATIENT COMMENT** MISC XX SCH (19:51)
[2016-09-20 20:00] VITALS: BP 136/63
[2016-09-20 20:10] VITALS: BP 136/63
[2016-09-21 05:18] VITALS: BP 134/62
[2016-09-21] MEDS: LIDOCAINE 5% (LIDODERM) PATCH TD SCH (06:10)
[2016-09-21] MEDS: APIXABAN 2.5 MG TAB (ELIQUIS) PO SCH ×2 (06:10→20:19)
[2016-09-21] MEDS: DOCUSATE SODIUM 100 MG CAP PO SCH ×2 (06:10→20:19)
[2016-09-21] MEDS: MIRALAX *UNIT DOSE* 17GM PACKET PO SCH ×2 (06:10→20:19)
[2016-09-21] MEDS: GABAPENTIN 100 MG CAP PO SCH (06:11)
[2016-09-21] MEDS: SENOKOT S TAB PO SCH ×2 (06:11→20:19)
[2016-09-21] MEDS: diltiaZEM **CD** 180 MG CAP PO SCH (06:11)
[2016-09-21] MEDS: guaiFENesin ER 600 MG TAB PO SCH ×2 (06:11→20:19)
[2016-09-21] MEDS: BENZONATATE 100 MG CAP PO SCH ×3 (06:12→20:19)
[2016-09-21] MEDS: POLYVINYL ALCOHOL OPHTH SOLN 15 ML(LIQUITEARS) OU SCH ×3 (06:13→20:20)
[2016-09-21] MEDS: ERYTHROMYCIN OPHTH OINT OD SCH ×3 (06:13→20:20)
[2016-09-21] MEDS: FLUTICASONE PROP 0.05% NASAL SPRAY 16 GM (FLONASE) SCH ×2 (06:13→20:19)
[2016-09-21 07:00] VITALS: BP 147/68
[2016-09-21 07:22] LABS: BASO % 0.7 % (0.0-1.0); EOS # 0.2 K/mm3 (0.0-0.50); EOS % 2.8 % (0.0-3.0); LARGE UNSTAINED CELL # 0.2 K/mm3 (0.0-0.4); LARGE UNSTAINED CELL % 2.2 % (0.0-4.0); LYMPH # 1.1 K/mm3 (1.5-4.5); MEAN CORPUSCULAR HEMOGLOBIN 25.3 pg (27.0-33.0); MEAN CORPUSCULAR HGB CONC 30.1 g/dl (32.0-36.5); MEAN CORPUSCULAR VOLUME 84.1 fl (80.0-96.0); MONO # 0.4 K/mm3 (0.0-0.8); MONO % 5.7 % (0.0-5.0); NEUTROPHILS # 5.2 K/mm3 (1.8-7.7); NEUTROPHILS % 74.6 % (36.0-66.0); PLATELET COUNT, AUTOMATED 151 k/mm3 (150-450); RED CELL DISTRIBUTION WIDTH 19.5 % (11.5-14.5)
[2016-09-21 07:26] LABS: ALBUMIN 2.5 GM/DL (3.2-5.2); ALBUMIN/GLOBULIN RATIO 0.52 (1.00-1.93); BILIRUBIN,TOTAL 1.4 MG/DL (0.2-1.0); CALCIUM LEVEL 8.9 MG/DL (8.8-10.2); CREATININE FOR GFR 7.94 MG/DL (0.70-1.30); GLOMERULAR FILTRATION RATE 8.8 (>49); POTASSIUM SERUM 4.6 MEQ/L (3.5-5.1); TOTAL PROTEIN 7.3 GM/DL (6.4-8.2)
[2016-09-21] MEDS: DIGOXIN 0.125 MG TAB PO SCH (07:55)
[2016-09-21] MEDS: LACTIC ACID 12% LOTION 225 GM BTL TOP SCH (07:56)
[2016-09-21] MEDS: IPRATROPIUM 0.5MG/ALBUTEROL 2.5MG INH SOL UD 3ML (DUONEB)(J7620) NEB SCH ×2 (08:01→19:57)
[2016-09-21 12:37] LABS: CALCIUM LEVEL 8.7 MG/DL (8.8-10.2); CREATININE FOR GFR 8.08 MG/DL (0.70-1.30); GLOMERULAR FILTRATION RATE 8.6 (>49); POTASSIUM SERUM 4.4 MEQ/L (3.5-5.1)
[2016-09-21 19:22] VITALS: BP 141/63
[2016-09-21] MEDS: PERCOCET 5MG/325MG TAB PO PRN (20:19)
[2016-09-21] MEDS: **NOTE PATIENT COMMENT** MISC XX SCH (20:25)
--- NOTE | 2016-09-22 01:40 | IPN ---
DATE: 09/21/2016 Mr. Fernandez is seen this afternoon during dialysis. He is undergoing subacute rehabilitation following his left [id number] amputation. The patient is resting comfortably during dialysis and denies any complaints. He did have tachycardia following his last dialysis treatment, which was felt to be related to hypovolemia, and he was given IV fluid with improvement in his heart rate. He has been on digoxin chronically for atrial fibrillation. PHYSICAL EXAMINATION: Temperature 98.2 degrees Fahrenheit, heart rate at the start of dialysis was 79 and now in the middle of dialysis is 99 per minute. Respiratory rate is 18 per minute. Blood pressure is 144/64 mmHg. His neck veins are only mildly distended. His head is atraumatic. Ears, nose and throat are unremarkable. His heart sounds are somewhat tachycardiac. Lungs have been clear to auscultation. Abdomen: Soft and nontender. Extremities: Without any cyanosis or clubbing. Skin: Without any rash or ulcers. Left kpyvh-iyc-zggm amputation stump is wrapped in dressing. Right foot is in the padding due to pressure ulcer on his right heel. His left forearm AV fistula is functioning well. Today's labs showed BUN 31 and creatinine 7.94. Potassium level is 4.6 and sodium 134. Hemoglobin 9.2 and hematocrit 30.7. PROBLEMS: 1. End-stage renal disease. The patient is currently being dialyzed, and he is tolerating dialysis treatment very well. 2. Congestive heart failure. He did have volume overload last week. However, his volume status seems to be much improved now. Today we are removing 2 liters of fluid which he is tolerating well so far. We will reassess his volume status with the next hemodialysis. 3. Anemia of acute blood loss. The patient had zpkke-wus-pwnl amputation done, and his anemia is now gradually improving. He receives Aranesp once a week. 4. Hypertension. Blood pressure is well controlled on current antihypertensive medications. MTDD
[2016-09-22 07:00] VITALS: BP 136/61
[2016-09-22] MEDS: IPRATROPIUM 0.5MG/ALBUTEROL 2.5MG INH SOL UD 3ML (DUONEB)(J7620) NEB SCH ×2 (07:34→19:42)
[2016-09-22] MEDS: LIDOCAINE 5% (LIDODERM) PATCH TD SCH (08:16)
[2016-09-22] MEDS: BENZONATATE 100 MG CAP PO SCH ×3 (08:16→20:00)
[2016-09-22] MEDS: GABAPENTIN 100 MG CAP PO SCH (08:16)
[2016-09-22] MEDS: guaiFENesin ER 600 MG TAB PO SCH ×2 (08:16→19:59)
[2016-09-22] MEDS: APIXABAN 2.5 MG TAB (ELIQUIS) PO SCH ×2 (08:16→20:00)
[2016-09-22] MEDS: diltiaZEM **CD** 180 MG CAP PO SCH (08:16)
[2016-09-22] MEDS: LACTIC ACID 12% LOTION 225 GM BTL TOP SCH (08:17)
[2016-09-22] MEDS: PERCOCET 5MG/325MG TAB PO PRN (08:17)
[2016-09-22] MEDS: MIRALAX *UNIT DOSE* 17GM PACKET PO SCH ×2 (08:18→19:57)
[2016-09-22] MEDS: ERYTHROMYCIN OPHTH OINT OD SCH ×3 (08:18→20:00)
[2016-09-22] MEDS: DOCUSATE SODIUM 100 MG CAP PO SCH ×2 (08:18→20:05)
[2016-09-22] MEDS: POLYVINYL ALCOHOL OPHTH SOLN 15 ML(LIQUITEARS) OU SCH ×3 (08:18→20:01)
[2016-09-22] MEDS: SENOKOT S TAB PO SCH ×2 (08:18→20:00)
[2016-09-22] MEDS: FLUTICASONE PROP 0.05% NASAL SPRAY 16 GM (FLONASE) SCH ×2 (08:18→20:00)
[2016-09-22] MEDS: diphenhydrAMINE 25 MG CAP PO PRN ×2 (10:34→22:17)
[2016-09-22] MEDS: OFLOXACIN 0.3 % (OCUFLOX) OPTH SOL 5ML OU SCH ×4 (10:39→20:01)
[2016-09-22] MEDS: **NOTE PATIENT COMMENT** MISC XX SCH (20:03)
[2016-09-22 20:48] VITALS: BP 155/67
[2016-09-23] MEDS: LIDOCAINE 5% (LIDODERM) PATCH TD SCH (06:26)
[2016-09-23] MEDS: guaiFENesin ER 600 MG TAB PO SCH ×2 (06:26→20:11)
[2016-09-23] MEDS: BENZONATATE 100 MG CAP PO SCH ×3 (06:26→20:10)
[2016-09-23] MEDS: APIXABAN 2.5 MG TAB (ELIQUIS) PO SCH ×2 (06:27→20:10)
[2016-09-23] MEDS: DIGOXIN 0.125 MG TAB PO SCH (06:27)
[2016-09-23] MEDS: GABAPENTIN 100 MG CAP PO SCH (06:27)
[2016-09-23] MEDS: POLYVINYL ALCOHOL OPHTH SOLN 15 ML(LIQUITEARS) OU SCH ×3 (06:28→20:12)
[2016-09-23] MEDS: FLUTICASONE PROP 0.05% NASAL SPRAY 16 GM (FLONASE) SCH ×2 (06:28→20:11)
[2016-09-23] MEDS: OFLOXACIN 0.3 % (OCUFLOX) OPTH SOL 5ML OU SCH ×4 (06:29→20:11)
[2016-09-23] MEDS: ERYTHROMYCIN OPHTH OINT OD SCH ×3 (06:29→20:12)
[2016-09-23] MEDS: LACTIC ACID 12% LOTION 225 GM BTL TOP SCH (06:30)
[2016-09-23 08:00] VITALS: BP 128/59
[2016-09-23] MEDS: MIRALAX *UNIT DOSE* 17GM PACKET PO SCH ×2 (08:23→20:12)
[2016-09-23] MEDS: diltiaZEM **CD** 180 MG CAP PO SCH (08:23)
[2016-09-23] MEDS: SENOKOT S TAB PO SCH ×2 (08:23→20:12)
[2016-09-23] MEDS: DOCUSATE SODIUM 100 MG CAP PO SCH ×2 (08:23→20:12)
[2016-09-23] MEDS: IPRATROPIUM 0.5MG/ALBUTEROL 2.5MG INH SOL UD 3ML (DUONEB)(J7620) NEB SCH ×2 (08:30→20:00)
--- NOTE | 2016-09-23 16:24 | IPN ---
DATE: 09/23/2016 Mr. Fernandez is seen during dialysis on his bedside. He is regularly dialyzed on Wednesday, Wednesday and Wednesday schedule. He denies any dyspnea, chest pain, nausea or vomiting. He has been without any new complaints. He underwent his left ldgci-[id number]-[id number] amputation and wound has been healing. PHYSICAL EXAMINATION: Temperature 98.3 degrees Fahrenheit, heart rate 72 per minute and respiratory rate 20 per minute. Blood pressure 128/59 mmHg and oxygen saturation 96% on room air. His head is atraumatic. Ears, nose and throat are unremarkable. He is edentulous and without any oral thrush or ulcers. Pupils are equal and reactive to light and sclerae is anicteric. Trachea is midline and thyroid is not enlarged. Heart sounds are regular with a systolic murmur grade 2/6. Lungs sound clear to auscultation. Abdomen is soft and nontender and without palpable organomegaly. Bowel sounds are normal. Extremities have no cyanosis or clubbing. Left forearm arteriovenous (AV) fistula is being used for dialysis. His left leg stump is wrapped in dressing. Right foot is in foam padding and has dressing on it. His labs from 09/21/2016, showed a hemoglobin 9.2 and hematocrit 30.7. BUN was 34 and creatinine 8.0. He did not have any new labs. PROBLEMS: 1. End-stage renal disease. The patient is being dialyzed today and he is tolerating his dialysis treatment very well. Arteriovenous (AV) fistula is working. 2. Congestive heart failure. His volume status is well-compensated and we removed 3.5 liters of fluid today. 3. Anemia. His anemia has been stable and we will continue with Aranesp. He did have acute blood loss due to his left leg amputation. He is receiving IV Venofer 100 mg with each dialysis and Aranesp 300 mcg once a week.
[2016-09-23] MEDS: **NOTE PATIENT COMMENT** MISC XX SCH (20:11)
[2016-09-24 06:53] LABS: MEAN CORPUSCULAR HEMOGLOBIN 25.4 pg (27.0-33.0); MEAN CORPUSCULAR HGB CONC 29.5 g/dl (32.0-36.5); MEAN CORPUSCULAR VOLUME 85.9 fl (80.0-96.0); WHITE BLOOD COUNT 5.5 K/mm3 (4.0-10.0)
[2016-09-24 07:00] VITALS: BP 139/66
[2016-09-24 07:11] LABS: ALBUMIN 2.5 GM/DL (3.2-5.2); ALBUMIN/GLOBULIN RATIO 0.51 (1.00-1.93); BILIRUBIN,DIRECT 0.4 MG/DL (0.0-0.2); BILIRUBIN,TOTAL 1.1 MG/DL (0.2-1.0); CALCIUM LEVEL 9.1 MG/DL (8.8-10.2); CREATININE FOR GFR 5.37 MG/DL (0.70-1.30); GLOMERULAR FILTRATION RATE 13.8 (>49); POTASSIUM SERUM 4.4 MEQ/L (3.5-5.1); TOTAL PROTEIN 7.4 GM/DL (6.4-8.2)
[2016-09-24] MEDS: IPRATROPIUM 0.5MG/ALBUTEROL 2.5MG INH SOL UD 3ML (DUONEB)(J7620) NEB SCH ×2 (07:37→19:11)
[2016-09-24] MEDS: LIDOCAINE 5% (LIDODERM) PATCH TD SCH (09:19)
[2016-09-24] MEDS: POLYVINYL ALCOHOL OPHTH SOLN 15 ML(LIQUITEARS) OU SCH ×3 (09:20→19:38)
[2016-09-24] MEDS: SODIUM CHLORIDE NASAL 0.65% SPRAY BTL (OCEAN) PRN ×2 (09:20→19:38)
[2016-09-24] MEDS: APIXABAN 2.5 MG TAB (ELIQUIS) PO SCH ×2 (09:20→19:38)
[2016-09-24] MEDS: FLUTICASONE PROP 0.05% NASAL SPRAY 16 GM (FLONASE) SCH ×2 (09:20→19:39)
[2016-09-24] MEDS: SENOKOT S TAB PO SCH ×2 (09:20→19:39)
[2016-09-24] MEDS: guaiFENesin ER 600 MG TAB PO SCH ×2 (09:20→19:38)
[2016-09-24] MEDS: DOCUSATE SODIUM 100 MG CAP PO SCH ×2 (09:20→19:39)
[2016-09-24] MEDS: BENZONATATE 100 MG CAP PO SCH ×3 (09:20→19:38)
[2016-09-24] MEDS: diltiaZEM **CD** 180 MG CAP PO SCH (09:20)
[2016-09-24] MEDS: GABAPENTIN 100 MG CAP PO SCH (09:20)
[2016-09-24] MEDS: ERYTHROMYCIN OPHTH OINT OD SCH ×3 (09:21→19:39)
[2016-09-24] MEDS: OFLOXACIN 0.3 % (OCUFLOX) OPTH SOL 5ML OU SCH ×4 (09:22→19:38)
[2016-09-24] MEDS: MIRALAX *UNIT DOSE* 17GM PACKET PO SCH ×2 (09:22→19:39)
[2016-09-24] MEDS: LACTIC ACID 12% LOTION 225 GM BTL TOP SCH (09:23)
[2016-09-24] MEDS: **NOTE PATIENT COMMENT** MISC XX SCH (19:39)
[2016-09-24 20:00] VITALS: BP 153/69
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
[2016-09-25] MEDS: LIDOCAINE 5% (LIDODERM) PATCH TD SCH (06:09)
[2016-09-25] MEDS: APIXABAN 2.5 MG TAB (ELIQUIS) PO SCH ×2 (06:10→20:10)
[2016-09-25] MEDS: diltiaZEM **CD** 180 MG CAP PO SCH (06:10)
[2016-09-25] MEDS: DOCUSATE SODIUM 100 MG CAP PO SCH ×2 (06:10→20:10)
[2016-09-25] MEDS: DIGOXIN 0.125 MG TAB PO SCH (06:11)
[2016-09-25] MEDS: guaiFENesin ER 600 MG TAB PO SCH ×2 (06:12→20:09)
[2016-09-25] MEDS: MIRALAX *UNIT DOSE* 17GM PACKET PO SCH ×2 (06:12→20:11)
[2016-09-25] MEDS: BENZONATATE 100 MG CAP PO SCH ×3 (06:13→20:09)
[2016-09-25] MEDS: GABAPENTIN 100 MG CAP PO SCH (06:13)
[2016-09-25] MEDS: SENOKOT S TAB PO SCH ×2 (06:13→20:10)
[2016-09-25] MEDS: FLUTICASONE PROP 0.05% NASAL SPRAY 16 GM (FLONASE) SCH ×2 (06:16→20:11)
[2016-09-25] MEDS: POLYVINYL ALCOHOL OPHTH SOLN 15 ML(LIQUITEARS) OU SCH ×3 (06:17→20:13)
[2016-09-25] MEDS: ERYTHROMYCIN OPHTH OINT OD SCH ×3 (06:17→20:12)
[2016-09-25] MEDS: OFLOXACIN 0.3 % (OCUFLOX) OPTH SOL 5ML OU SCH ×4 (06:18→20:13)
[2016-09-25] MEDS: IPRATROPIUM 0.5MG/ALBUTEROL 2.5MG INH SOL UD 3ML (DUONEB)(J7620) NEB SCH ×2 (07:09→19:26)
[2016-09-25 07:42] VITALS: BP 145/60
[2016-09-25] MEDS: LACTIC ACID 12% LOTION 225 GM BTL TOP SCH (08:43)
--- NOTE | 2016-09-25 13:24 | IPN ---
DATE: 09/25/2016 Mr. Fernandez is being dialyzed this morning. He has been feeling about the same as his last visit. He is still waiting for a intermediate bed. He is eating well and denies any nausea, vomiting, dyspnea or chest pain. On physical exam, his temperature is 99 degrees Fahrenheit, heart rate 68 per minute and respiratory rate 16 per minute. Blood pressure 145/60 mmHg and oxygen saturation 97%. His labs from yesterday showed a WBC count 5.5, hemoglobin 9.4 and hematocrit 31.9. Sodium was 137 and potassium 4.4. BUN was only 19 and creatinine 5.37. On physical exam, he is awake and at his baseline mentation. His heart sounds are regular. Lungs clear to auscultation. Abdomen soft and benign. Extremities have no cyanosis or clubbing. Left arm AV fistula is working. His left onxuv-auz-kiib amputation and stump is wrapped in dressing. PROBLEMS: 1. End-stage renal disease. The patient is being dialyzed today and he is tolerating his dialysis treatment very well. 2. Anemia. His anemia has been stable and he will continue to receive Aranesp once a week with hemodialysis. He is also receiving Venofer which will be continued for a total of 10 doses. 3. Hypertension. Blood pressure is very well controlled on current antihypertensives. 4. Disposition. The patient is waiting for a intermediate bed.
[2016-09-25 19:31] VITALS: BP 148/65
[2016-09-25] MEDS: **NOTE PATIENT COMMENT** MISC XX SCH (20:13)
[2016-09-26] MEDS: SODIUM CHLORIDE NASAL 0.65% SPRAY BTL (OCEAN) PRN ×2 (00:56→09:13)
[2016-09-26] MEDS: diphenhydrAMINE 25 MG CAP PO PRN (00:56)
[2016-09-26] MEDS: IPRATROPIUM 0.5MG/ALBUTEROL 2.5MG INH SOL UD 3ML (DUONEB)(J7620) NEB SCH ×2 (07:08→20:14)
[2016-09-26 08:00] VITALS: BP 129/84
[2016-09-26] MEDS: FLUTICASONE PROP 0.05% NASAL SPRAY 16 GM (FLONASE) SCH (09:00)
[2016-09-26] MEDS: MIRALAX *UNIT DOSE* 17GM PACKET PO SCH ×2 (09:00→19:46)
[2016-09-26] MEDS: DOCUSATE SODIUM 100 MG CAP PO SCH ×2 (09:13→19:45)
[2016-09-26] MEDS: LIDOCAINE 5% (LIDODERM) PATCH TD SCH (09:13)
[2016-09-26] MEDS: GABAPENTIN 100 MG CAP PO SCH (09:13)
[2016-09-26] MEDS: guaiFENesin ER 600 MG TAB PO SCH ×2 (09:13→19:45)
[2016-09-26] MEDS: APIXABAN 2.5 MG TAB (ELIQUIS) PO SCH ×2 (09:13→19:45)
[2016-09-26] MEDS: BENZONATATE 100 MG CAP PO SCH ×3 (09:13→19:44)
[2016-09-26] MEDS: diltiaZEM **CD** 180 MG CAP PO SCH (09:14)
[2016-09-26] MEDS: OFLOXACIN 0.3 % (OCUFLOX) OPTH SOL 5ML OU SCH ×4 (09:14→19:47)
[2016-09-26] MEDS: PERCOCET 5MG/325MG TAB PO PRN (09:14)
[2016-09-26] MEDS: SENOKOT S TAB PO SCH ×2 (09:14→19:45)
[2016-09-26] MEDS: ERYTHROMYCIN OPHTH OINT OD SCH (09:15)
[2016-09-26] MEDS: LACTIC ACID 12% LOTION 225 GM BTL TOP SCH (09:15)
[2016-09-26] MEDS: POLYVINYL ALCOHOL OPHTH SOLN 15 ML(LIQUITEARS) OU SCH ×3 (09:15→19:47)
[2016-09-26 19:25] VITALS: BP 135/65
[2016-09-26] MEDS: SODIUM CHLORIDE NASAL 0.65% SPRAY BTL (OCEAN) SCH (19:46)
[2016-09-26] MEDS: **NOTE PATIENT COMMENT** MISC XX SCH (19:48)
[2016-09-27] MEDS: IPRATROPIUM 0.5MG/ALBUTEROL 2.5MG INH SOL UD 3ML (DUONEB)(J7620) NEB SCH ×2 (07:09→19:35)
[2016-09-27 08:00] VITALS: BP 135/63
[2016-09-27] MEDS: SODIUM CHLORIDE NASAL 0.65% SPRAY BTL (OCEAN) SCH ×2 (08:15→19:56)
[2016-09-27] MEDS: LIDOCAINE 5% (LIDODERM) PATCH TD SCH (08:15)
[2016-09-27] MEDS: BENZONATATE 100 MG CAP PO SCH ×3 (08:16→19:55)
[2016-09-27] MEDS: APIXABAN 2.5 MG TAB (ELIQUIS) PO SCH ×2 (08:16→19:55)
[2016-09-27] MEDS: OFLOXACIN 0.3 % (OCUFLOX) OPTH SOL 5ML OU SCH ×4 (08:16→19:56)
[2016-09-27] MEDS: diltiaZEM **CD** 180 MG CAP PO SCH (08:16)
[2016-09-27] MEDS: guaiFENesin ER 600 MG TAB PO SCH ×2 (08:16→19:55)
[2016-09-27] MEDS: POLYVINYL ALCOHOL OPHTH SOLN 15 ML(LIQUITEARS) OU SCH ×3 (08:16→19:56)
[2016-09-27] MEDS: GABAPENTIN 100 MG CAP PO SCH (08:16)
[2016-09-27] MEDS: SENOKOT S TAB PO SCH ×2 (08:16→19:55)
[2016-09-27] MEDS: DOCUSATE SODIUM 100 MG CAP PO SCH ×2 (08:16→19:55)
[2016-09-27] MEDS: MIRALAX *UNIT DOSE* 17GM PACKET PO SCH ×2 (08:17→19:55)
[2016-09-27] MEDS: LACTIC ACID 12% LOTION 225 GM BTL TOP SCH (08:17)
[2016-09-27] MEDS: PERCOCET 5MG/325MG TAB PO PRN (08:17)
[2016-09-27 09:29] LABS: ALBUMIN 2.6 GM/DL (3.2-5.2); CALCIUM LEVEL 8.5 MG/DL (8.8-10.2); CREATININE FOR GFR 6.62 MG/DL (0.70-1.30); GLOMERULAR FILTRATION RATE 10.8 (>49); PHOSPHORUS LEVEL 3.2 MG/DL (2.5-4.9); POTASSIUM SERUM 4.6 MEQ/L (3.5-5.1)
[2016-09-27 09:36] LABS: BASO % 0.2 % (0.0-1.0); EOS # 0.1 K/mm3 (0.0-0.50); EOS % 2.1 % (0.0-3.0); LARGE UNSTAINED CELL # 0.1 K/mm3 (0.0-0.4); LARGE UNSTAINED CELL % 1.5 % (0.0-4.0); LYMPH # 0.9 K/mm3 (1.5-4.5); LYMPH % 12.5 % (24.0-44.0); MEAN CORPUSCULAR HEMOGLOBIN 24.6 pg (27.0-33.0); MEAN CORPUSCULAR HGB CONC 29.6 g/dl (32.0-36.5); MONO # 0.3 K/mm3 (0.0-0.8); MONO % 4.3 % (0.0-5.0); NEUTROPHILS # 4.9 K/mm3 (1.8-7.7); NEUTROPHILS % 79.4 % (36.0-66.0); PLATELET COUNT, AUTOMATED 153 k/mm3 (150-450); RED CELL DISTRIBUTION WIDTH 19.3 % (11.5-14.5); WHITE BLOOD COUNT 6.1 K/mm3 (4.0-10.0)
--- NOTE | 2016-09-27 11:48 | IPN ---
DATE: 09/27/2016 SUBJECTIVE: The patient was seen and examined at the bedside today during hemodialysis. He is tolerating the hemodialysis procedure well. There are no active complaints apart from the dry cough that the patient is having. REVIEW OF SYSTEMS: The patient denies any fever, chills, rigors, headache, nausea, vomiting, chest pain, shortness of breath. He does complain of a dry cough. He denies any pain abdomen, but he does complain of some loose stools. The rest of review of systems is negative. OBJECTIVE: VITAL SIGNS: Temperature is 98 degrees Fahrenheit, blood pressure is 135/63, pulse is 82, respiratory rate of 18, saturating 95% on room air. PHYSICAL EXAMINATION: GENERAL: The patient is awake, alert and oriented times three, laying in bed, in no apparent distress. HEAD AND NECK EXAMINATION: Extraocular muscles intact. Mucous membranes are moist. Neck is supple. There is no jugular venous distention (JVD). CARDIOVASCULAR: The patient's heart rate is irregularly irregular. No murmur, rub, or gallop. RESPIRATORY: Chest is clear to auscultation bilaterally. Bilateral equal air entry. No rales or rhonchi. ABDOMEN: Soft, positive bowel sounds, nontender. No ascites. No hepatosplenomegaly. EXTREMITIES: The patient has a left below-knee amputation and below-knee amputation (BKA) stump is wrapped in a dressing. The patient has an ulcer on the right heel and he has ulcers on multiple toes on the right foot as well. He has a dressing over the right heel as well. 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 Power is 5/5 in all extremities otherwise. LAB REVIEW: CBC showed a WBC of 6.1, hemoglobin 9.1, platelets are 153. BMP showed sodium 140, potassium 4.6, chloride 101, bicarbonate 29, BUN 29, creatinine 6.62. CURRENT MEDICATIONS: The patient's medications were all reviewed by me. ASSESSMENT: A 66-year-old male with a past medical history of end-stage renal disease on hemodialysis, this admission was originally secondary to severe anemia requiring multiple transfusions. He was found to have left foot osteomyelitis and gangrene. He is status post left below-knee amputation. Nephrology following for management of end-stage renal disease. PLAN: 1. End-stage renal disease, on hemodialysis. The patient's regular days are Wednesday, Wednesday and Wednesday. He is being dialyzed today. Because of the holiday schedules, Wednesday patients are being dialyzed on Wednesday. Next hemodialysis session will be on Wednesday. 2. Anemia and end-stage renal disease. The patient's current dose of Aranesp is 300 mcg IV every hemodialysis. Continue current dose. 3. Atrial fibrillation. The patient is currently on diltiazem 180 mg by mouth daily. He is also on digoxin 0.125 mg every Wednesday, Wednesday and Wednesday. He is on Eliquis 2.5 mg by mouth twice a day. The patient's heart rate is controlled at this time. 4. Hypertension. The patient's blood pressure is acceptable at this time. Continue current dose of antihypertensive medications. 5. Positive heparin-induced antibodies. The patient is currently on Eliquis. We are dialyzing the patient without heparin.
[2016-09-27] MEDS: diphenhydrAMINE 25 MG CAP PO PRN (14:16)
[2016-09-27 19:33] VITALS: BP 130/64
[2016-09-27] MEDS: **NOTE PATIENT COMMENT** MISC XX SCH (19:56)
[2016-09-28 07:00] VITALS: BP 134/63
[2016-09-28] MEDS: IPRATROPIUM 0.5MG/ALBUTEROL 2.5MG INH SOL UD 3ML (DUONEB)(J7620) NEB SCH ×2 (07:13→19:28)
[2016-09-28] MEDS: diltiaZEM **CD** 180 MG CAP PO SCH (08:09)
[2016-09-28] MEDS: guaiFENesin ER 600 MG TAB PO SCH ×2 (08:10→19:47)
[2016-09-28] MEDS: APIXABAN 2.5 MG TAB (ELIQUIS) PO SCH ×2 (08:10→19:47)
[2016-09-28] MEDS: DIGOXIN 0.125 MG TAB PO SCH (08:10)
[2016-09-28] MEDS: GABAPENTIN 100 MG CAP PO SCH (08:10)
[2016-09-28] MEDS: DOCUSATE SODIUM 100 MG CAP PO SCH ×2 (08:10→19:47)
[2016-09-28] MEDS: SENOKOT S TAB PO SCH ×2 (08:10→19:47)
[2016-09-28] MEDS: BENZONATATE 100 MG CAP PO SCH ×3 (08:11→19:47)
[2016-09-28] MEDS: POLYVINYL ALCOHOL OPHTH SOLN 15 ML(LIQUITEARS) OU SCH ×3 (08:15→19:48)
[2016-09-28] MEDS: SODIUM CHLORIDE NASAL 0.65% SPRAY BTL (OCEAN) SCH ×2 (08:15→19:49)
[2016-09-28] MEDS: LIDOCAINE 5% (LIDODERM) PATCH TD SCH (08:17)
[2016-09-28] MEDS: OFLOXACIN 0.3 % (OCUFLOX) OPTH SOL 5ML OU SCH ×4 (08:20→19:48)
[2016-09-28] MEDS: LACTIC ACID 12% LOTION 225 GM BTL TOP SCH (08:22)
[2016-09-28] MEDS: MIRALAX *UNIT DOSE* 17GM PACKET PO SCH ×2 (08:23→19:47)
[2016-09-28] MEDS: diphenhydrAMINE 25 MG CAP PO PRN (18:21)
[2016-09-28] MEDS: **NOTE PATIENT COMMENT** MISC XX SCH (19:49)
[2016-09-29] MEDS: IPRATROPIUM 0.5MG/ALBUTEROL 2.5MG INH SOL UD 3ML (DUONEB)(J7620) NEB SCH ×2 (06:12→19:55)
[2016-09-29] MEDS: diltiaZEM **CD** 180 MG CAP PO SCH (06:18)
[2016-09-29] MEDS: APIXABAN 2.5 MG TAB (ELIQUIS) PO SCH ×2 (06:19→19:47)
[2016-09-29] MEDS: MIRALAX *UNIT DOSE* 17GM PACKET PO SCH ×2 (06:19→19:48)
[2016-09-29] MEDS: guaiFENesin ER 600 MG TAB PO SCH ×2 (06:19→19:47)
[2016-09-29] MEDS: DOCUSATE SODIUM 100 MG CAP PO SCH ×2 (06:19→19:48)
[2016-09-29] MEDS: LIDOCAINE 5% (LIDODERM) PATCH TD SCH (06:20)
[2016-09-29] MEDS: SODIUM CHLORIDE NASAL 0.65% SPRAY BTL (OCEAN) SCH ×2 (06:20→19:48)
[2016-09-29] MEDS: GABAPENTIN 100 MG CAP PO SCH (06:20)
[2016-09-29] MEDS: SENOKOT S TAB PO SCH ×2 (06:20→19:47)
[2016-09-29] MEDS: BENZONATATE 100 MG CAP PO SCH ×3 (06:20→19:47)
[2016-09-29] MEDS: OFLOXACIN 0.3 % (OCUFLOX) OPTH SOL 5ML OU SCH ×4 (06:21→19:48)
[2016-09-29] MEDS: POLYVINYL ALCOHOL OPHTH SOLN 15 ML(LIQUITEARS) OU SCH ×3 (06:21→19:48)
[2016-09-29] MEDS: LACTIC ACID 12% LOTION 225 GM BTL TOP SCH (06:22)
[2016-09-29 07:00] VITALS: BP 129/63
[2016-09-29 09:58] LABS: MEAN CORPUSCULAR HEMOGLOBIN 24.7 pg (27.0-33.0); MEAN CORPUSCULAR HGB CONC 29.4 g/dl (32.0-36.5); RED CELL DISTRIBUTION WIDTH 19.4 % (11.5-14.5); WHITE BLOOD COUNT 5.9 K/mm3 (4.0-10.0)
[2016-09-29 10:17] LABS: CALCIUM LEVEL 8.6 MG/DL (8.8-10.2); CREATININE FOR GFR 7.09 MG/DL (0.70-1.30); POTASSIUM SERUM 4.5 MEQ/L (3.5-5.1)
[2016-09-29 14:38] VITALS: BP 124/59
[2016-09-29] MEDS: NEOSPORIN TOP OINT 15GM TOP SCH (17:15)
--- NOTE | 2016-09-29 17:26 | HPE ---
DATE OF ADMISSION: 09/29/2016 The patient is seen and examined at bedside. He states that he is doing well. He is having less pain in his left leg amputation site. He denies any pain currently in his right foot. Vital signs are stable. White blood cell count is 5.9. Hemoglobin is 9. Lower extremity examination: There are some dark patches noted to the dorsal right toes. Upon debridement, these are noted just to be patches of dried skin and do not appear gangrenous. The right heel wound is examined. There is some loose fibrotic tissue noted. This is debrided free. Aggressive debridement is not performed presently due to poor circulation. The pulses remain nonpalpable without Dopplerable pulses to the dorsalis pedis (DP) or posterior tibial (PT) pulses. ASSESSMENT: A 66-year-old male with peripheral vascular disease, status post left leg below-knee amputation with right lower extremity pressure ulceration. PLAN: Continue current wound care. Continue offloading right heel wound with pillows while in bed and foam heel boot. He is okay to use this leg to transfer. Current wound care, antibiotic ointment to the toes, leave these open to air, and antibiotic ointment with Optifoam to right heel wound. I would recommend vascular consultation upon discharge to rehabilitation. The patient has seen Dr. Hess in the [facility]. I would recommend followup with him to see if any vascular procedure could be performed to improve blood flow to the right foot. Consideration for hyperbaric oxygen could be considered if revascularization is not possible. The patient will followup in my office once discharged to rehabilitation.
--- NOTE | 2016-09-29 18:16 | IPN ---
DATE: 09/29/2016 SUBJECTIVE: The patient was seen and examined at the bedside during hemodialysis. He does not have any active complaints, tolerating the hemodialysis procedure well. OBJECTIVE: VITAL SIGNS: Temperature is 98.2 degrees Fahrenheit, blood pressure is 124/59, pulse is 94, respiratory rate of 18, saturating 91% on room air. INTAKE AND OUTPUT: There is no urine output reported. Weight on the bath scale was 96.1 kg yesterday. PHYSICAL EXAMINATION: GENERAL: The patient is awake, alert, and oriented times three. Lying in bed in no apparent distress. HEAD/NECK: Extraocular muscles intact. Pupils equal, round, and reactive to light. There is no jugular venous distention (JVD). CARDIOVASCULAR: S1, S2. Heart rate is irregularly irregular. No murmur, rub, or gallop. RESPIRATORY: Chest is clear to auscultation bilaterally. Bilateral equal air entry. No rales or rhonchi. ABDOMEN: Soft. Positive bowel sounds. Nontender. No ascites, no hepatosplenomegaly. EXTREMITIES: The patient has a left below-knee amputation and stump is wrapped in dressing, and patient has multiple ulcers on the toes on the right foot, and the right foot is wrapped in waffle boot. 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 Power is 5/5 in all extremities. LABORATORY DATA: CBC showed a WBC 5.9, hemoglobin 9, platelets 148. BMP showed sodium 140, potassium 4.5, chloride 102, bicarbonate 30, BUN 32, creatinine 7.09, calcium 8.6. MEDICATIONS: The patient's medications were all reviewed by me. ASSESSMENT: A 66-year-old male with past medical history of end-stage renal disease on hemodialysis. This admission was originally secondary to severe anemia requiring multiple transfusions. His endoscopies were negative. He was also found to have left foot osteomyelitis and gangrene. He is status post left below-knee amputation. Nephrology service following the patient for management of end-stage renal disease. PLAN: 1. End-stage renal disease: The patient is getting dialysis according to his regular treatment regimen. His regular days are Wednesday, Wednesday, Wednesday, but because of holiday, he is being dialyzed today. Next dialysis will be Wednesday. 2. Anemia in end-stage renal disease: The patient's hemoglobin is 9. It is still below target. He is currently getting darbepoetin 300 mcg intravenous (IV) with hemodialysis. Continue current dose at this time. 3. Atrial fibrillation: Currently the patient's heart rate is well controlled. Continue current dose of Eliquis 2.5 mg by mouth twice a day, digoxin 0.125 mg by mouth Wednesday, Wednesday, Wednesday, diltiazem 180 mg by mouth daily. 4. Positive heparin-induced antibodies. The patient is currently on Eliquis. The patient gets dialysis without heparin.
[2016-09-29] MEDS: **NOTE PATIENT COMMENT** MISC XX SCH (19:48)
[2016-09-29] MEDS: diphenhydrAMINE 25 MG CAP PO PRN (22:28)
[2016-09-30 07:00] VITALS: BP 131/60
[2016-09-30] MEDS: IPRATROPIUM 0.5MG/ALBUTEROL 2.5MG INH SOL UD 3ML (DUONEB)(J7620) NEB SCH ×2 (07:26→19:19)
[2016-09-30] MEDS: SENOKOT S TAB PO SCH ×2 (08:50→19:59)
[2016-09-30] MEDS: diltiaZEM **CD** 180 MG CAP PO SCH (08:50)
[2016-09-30] MEDS: guaiFENesin ER 600 MG TAB PO SCH ×2 (08:50→19:59)
[2016-09-30] MEDS: DOCUSATE SODIUM 100 MG CAP PO SCH ×2 (08:50→19:59)
[2016-09-30] MEDS: GABAPENTIN 100 MG CAP PO SCH (08:50)
[2016-09-30] MEDS: BENZONATATE 100 MG CAP PO SCH ×3 (08:50→19:59)
[2016-09-30] MEDS: APIXABAN 2.5 MG TAB (ELIQUIS) PO SCH ×2 (08:50→19:59)
[2016-09-30] MEDS: LIDOCAINE 5% (LIDODERM) PATCH TD SCH (08:50)
[2016-09-30] MEDS: PERCOCET 5MG/325MG TAB PO PRN (08:51)
[2016-09-30] MEDS: DIGOXIN 0.125 MG TAB PO SCH (08:51)
[2016-09-30] MEDS: SODIUM CHLORIDE NASAL 0.65% SPRAY BTL (OCEAN) SCH ×2 (08:52→19:59)
[2016-09-30] MEDS: POLYVINYL ALCOHOL OPHTH SOLN 15 ML(LIQUITEARS) OU SCH ×3 (08:52→19:59)
[2016-09-30] MEDS: MIRALAX *UNIT DOSE* 17GM PACKET PO SCH ×2 (08:53→19:59)
[2016-09-30] MEDS: OFLOXACIN 0.3 % (OCUFLOX) OPTH SOL 5ML OU SCH ×4 (08:54→19:59)
[2016-09-30] MEDS: LACTIC ACID 12% LOTION 225 GM BTL TOP SCH (08:55)
[2016-09-30] MEDS: NEOSPORIN TOP OINT 15GM TOP SCH (08:57)
[2016-09-30] MEDS: diphenhydrAMINE 25 MG CAP PO PRN (10:56)
[2016-09-30] MEDS: **NOTE PATIENT COMMENT** MISC XX SCH (19:59)
[2016-10-01 06:41] LABS: MEAN CORPUSCULAR HEMOGLOBIN 24.8 pg (27.0-33.0); MEAN CORPUSCULAR HGB CONC 29.4 g/dl (32.0-36.5); MEAN CORPUSCULAR VOLUME 84.4 fl (80.0-96.0); WHITE BLOOD COUNT 6.9 K/mm3 (4.0-10.0)
[2016-10-01 06:52] LABS: CALCIUM LEVEL 9.1 MG/DL (8.8-10.2); CREATININE FOR GFR 6.83 MG/DL (0.70-1.30); GLOMERULAR FILTRATION RATE 10.4 (>49); POTASSIUM SERUM 5.1 MEQ/L (3.5-5.1)
[2016-10-01] MEDS: IPRATROPIUM 0.5MG/ALBUTEROL 2.5MG INH SOL UD 3ML (DUONEB)(J7620) NEB SCH ×2 (07:21→19:53)
[2016-10-01 08:06] VITALS: BP 133/60
[2016-10-01] MEDS: DOCUSATE SODIUM 100 MG CAP PO SCH ×2 (08:45→20:23)
[2016-10-01] MEDS: OFLOXACIN 0.3 % (OCUFLOX) OPTH SOL 5ML OU SCH ×4 (08:45→20:24)
[2016-10-01] MEDS: POLYVINYL ALCOHOL OPHTH SOLN 15 ML(LIQUITEARS) OU SCH ×3 (08:45→20:24)
[2016-10-01] MEDS: LIDOCAINE 5% (LIDODERM) PATCH TD SCH (08:45)
[2016-10-01] MEDS: BENZONATATE 100 MG CAP PO SCH ×3 (08:45→20:23)
[2016-10-01] MEDS: SENOKOT S TAB PO SCH ×2 (08:45→20:23)
[2016-10-01] MEDS: guaiFENesin ER 600 MG TAB PO SCH ×2 (08:45→20:23)
[2016-10-01] MEDS: SODIUM CHLORIDE NASAL 0.65% SPRAY BTL (OCEAN) SCH ×2 (08:45→20:24)
[2016-10-01] MEDS: GABAPENTIN 100 MG CAP PO SCH (08:45)
[2016-10-01] MEDS: APIXABAN 2.5 MG TAB (ELIQUIS) PO SCH ×2 (08:45→20:23)
[2016-10-01] MEDS: diltiaZEM **CD** 180 MG CAP PO SCH (08:46)
[2016-10-01] MEDS: PERCOCET 5MG/325MG TAB PO PRN (08:46)
[2016-10-01] MEDS: LACTIC ACID 12% LOTION 225 GM BTL TOP SCH (08:47)
[2016-10-01] MEDS: NEOSPORIN TOP OINT 15GM TOP SCH (08:47)
[2016-10-01] MEDS: MIRALAX *UNIT DOSE* 17GM PACKET PO SCH ×2 (08:52→20:23)
[2016-10-01] MEDS: diphenhydrAMINE 25 MG CAP PO PRN (10:18)
[2016-10-01 20:00] VITALS: BP 156/68
[2016-10-01] MEDS: **NOTE PATIENT COMMENT** MISC XX SCH (20:26)
[2016-10-02] MEDS: diltiaZEM **CD** 180 MG CAP PO SCH (05:42)
[2016-10-02] MEDS: SODIUM CHLORIDE NASAL 0.65% SPRAY BTL (OCEAN) SCH ×2 (06:32→19:39)
[2016-10-02] MEDS: POLYVINYL ALCOHOL OPHTH SOLN 15 ML(LIQUITEARS) OU SCH ×3 (06:32→19:38)
[2016-10-02] MEDS: LIDOCAINE 5% (LIDODERM) PATCH TD SCH (06:33)
[2016-10-02] MEDS: OFLOXACIN 0.3 % (OCUFLOX) OPTH SOL 5ML OU SCH ×4 (06:33→19:39)
[2016-10-02] MEDS: APIXABAN 2.5 MG TAB (ELIQUIS) PO SCH ×2 (06:34→19:37)
[2016-10-02] MEDS: DOCUSATE SODIUM 100 MG CAP PO SCH ×2 (06:34→19:37)
[2016-10-02] MEDS: guaiFENesin ER 600 MG TAB PO SCH ×2 (06:35→19:37)
[2016-10-02] MEDS: GABAPENTIN 100 MG CAP PO SCH (06:35)
[2016-10-02] MEDS: DIGOXIN 0.125 MG TAB PO SCH (06:35)
[2016-10-02] MEDS: SENOKOT S TAB PO SCH ×2 (06:36→19:37)
[2016-10-02] MEDS: BENZONATATE 100 MG CAP PO SCH ×3 (06:36→19:37)
[2016-10-02] MEDS: MIRALAX *UNIT DOSE* 17GM PACKET PO SCH ×2 (06:37→19:37)
[2016-10-02] MEDS: IPRATROPIUM 0.5MG/ALBUTEROL 2.5MG INH SOL UD 3ML (DUONEB)(J7620) NEB SCH ×2 (07:10→20:33)
[2016-10-02 08:00] VITALS: BP 135/62
--- NOTE | 2016-10-02 15:10 | IPN ---
DATE: 10/02/2016 SUBJECTIVE: Patient was seen and examined at the bedside today during hemodialysis procedure. Patient was tolerating the hemodialysis procedure well. No active complaints at this time. REVIEW OF SYSTEMS: Patient denies any fevers, chills, rigors, headache, nausea, vomiting, chest pain, shortness of breath, pain in abdomen, constipation, or diarrhea. Rest of review of systems is negative. OBJECTIVE: Vital signs: Temperature is 98 degrees Fahrenheit, blood pressure is 135/62, pulse is 78, respiratory rate of 18, saturating 98% on room air. PHYSICAL EXAMINATION: GENERAL: Patient is awake, alert, oriented times three, lying in bed in no apparent distress. HEAD AND NECK: Pupils are equally round and reactive to light. Patient has a squint. There is no jugular venous distention (JVD). CARDIOVASCULAR: S1, S2, regular rate. No murmur, rub, or gallop. RESPIRATORY: Chest is clear to auscultation bilaterally. Bilaterally clear air entry. No rales or rhonchi. ABDOMEN: Soft. Positive bowel sounds. Nontender. No ascites. No hepatosplenomegaly. EXTREMITIES: Patient has a left below-knee amputation. He is wearing a sock over the below-knee amputation (BKA) stump now, and he has right foot wrapped in waffle boot. He has some ulcerations on dorsal aspects of his toes on the right foot. CENTRAL NERVOUS SYSTEM: No focal neurological deficit. Power is 5/5 in all extremities. LABORATORY REVIEW: Showed hemoglobin was 10.2. His BMP showed sodium 138, potassium 5.1, chloride 100, bicarbonate 29, BUN 30, creatinine 6.83. Calcium was 9.1. CURRENT MEDICATIONS: Patient's medications were all reviewed by me. ASSESSMENT: A 66-year-old male with past medical history of end-stage renal disease, on hemodialysis this admission. Was originally secondary to severe anemia requiring multiple transfusions. His endoscopies were negative. He was later on found to have left foot osteomyelitis and gangrene. He is status post left below-knee amputation. Nephrology service is following the patient for management of end-stage renal disease. PLAN: 1. End-stage renal disease. Patient gets hemodialysis on Wednesday, Wednesday, Wednesday. Today he is being dialyzed according to his regular schedule. 2. Anemia and end-stage renal disease. Patient's hemoglobin is 10.2, which is well within target. He gets Aranesp 300 mcg IV with hemodialysis. Continue current dose of Aranesp. 3. Atrial fibrillation. Patient's heart rate is well controlled at this time. Continue current dose of Eliquis 2.5 mg twice a day. He is also on digoxin 0.125 mg on Wednesday, Wednesday, Wednesday and diltiazem 180 mg by mouth daily. 4. History of positive heparin-induced antibodies. Patient is on Eliquis, and he gets dialysis without heparin.
[2016-10-02] MEDS: NEOSPORIN TOP OINT 15GM TOP SCH (15:19)
[2016-10-02] MEDS: LACTIC ACID 12% LOTION 225 GM BTL TOP SCH (16:29)
[2016-10-02] MEDS: **NOTE PATIENT COMMENT** MISC XX SCH (19:39)
[2016-10-02 20:00] VITALS: BP 141/67
[2016-10-03 07:00] VITALS: BP 129/67
[2016-10-03] MEDS: IPRATROPIUM 0.5MG/ALBUTEROL 2.5MG INH SOL UD 3ML (DUONEB)(J7620) NEB SCH ×2 (07:45→20:05)
[2016-10-03] MEDS: MIRALAX *UNIT DOSE* 17GM PACKET PO SCH ×2 (09:00→20:12)
[2016-10-03] MEDS: LIDOCAINE 5% (LIDODERM) PATCH TD SCH (09:33)
[2016-10-03] MEDS: SODIUM CHLORIDE NASAL 0.65% SPRAY BTL (OCEAN) SCH ×2 (09:33→20:12)
[2016-10-03] MEDS: OFLOXACIN 0.3 % (OCUFLOX) OPTH SOL 5ML OU SCH ×4 (09:33→20:12)
[2016-10-03] MEDS: POLYVINYL ALCOHOL OPHTH SOLN 15 ML(LIQUITEARS) OU SCH ×3 (09:33→20:12)
[2016-10-03] MEDS: NEOSPORIN TOP OINT 15GM TOP SCH (09:33)
[2016-10-03] MEDS: APIXABAN 2.5 MG TAB (ELIQUIS) PO SCH ×2 (09:34→20:12)
[2016-10-03] MEDS: diltiaZEM **CD** 180 MG CAP PO SCH (09:34)
[2016-10-03] MEDS: BENZONATATE 100 MG CAP PO SCH ×3 (09:34→20:12)
[2016-10-03] MEDS: guaiFENesin ER 600 MG TAB PO SCH ×2 (09:34→20:12)
[2016-10-03] MEDS: GABAPENTIN 100 MG CAP PO SCH (09:34)
[2016-10-03] MEDS: SENOKOT S TAB PO SCH ×2 (09:34→20:12)
[2016-10-03] MEDS: DOCUSATE SODIUM 100 MG CAP PO SCH ×2 (09:34→20:12)
[2016-10-03] MEDS: LACTIC ACID 12% LOTION 225 GM BTL TOP SCH (09:35)
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
[2016-10-03] MEDS: **NOTE PATIENT COMMENT** MISC XX SCH (20:13)
[2016-10-04 07:00] VITALS: BP 122/64
[2016-10-04] MEDS: IPRATROPIUM 0.5MG/ALBUTEROL 2.5MG INH SOL UD 3ML (DUONEB)(J7620) NEB SCH ×2 (07:41→20:19)
[2016-10-04] MEDS: DOCUSATE SODIUM 100 MG CAP PO SCH ×2 (08:20→19:42)
[2016-10-04] MEDS: SENOKOT S TAB PO SCH ×2 (08:20→19:42)
[2016-10-04] MEDS: APIXABAN 2.5 MG TAB (ELIQUIS) PO SCH ×2 (08:20→19:42)
[2016-10-04] MEDS: guaiFENesin ER 600 MG TAB PO SCH ×2 (08:20→19:42)
[2016-10-04] MEDS: GABAPENTIN 100 MG CAP PO SCH (08:20)
[2016-10-04] MEDS: BENZONATATE 100 MG CAP PO SCH ×3 (08:20→19:42)
[2016-10-04] MEDS: MIRALAX *UNIT DOSE* 17GM PACKET PO SCH ×2 (08:21→19:42)
[2016-10-04] MEDS: diltiaZEM **CD** 180 MG CAP PO SCH (08:21)
[2016-10-04] MEDS: SODIUM CHLORIDE NASAL 0.65% SPRAY BTL (OCEAN) SCH ×2 (08:21→19:43)
[2016-10-04] MEDS: POLYVINYL ALCOHOL OPHTH SOLN 15 ML(LIQUITEARS) OU SCH ×3 (08:22→19:43)
[2016-10-04] MEDS: OFLOXACIN 0.3 % (OCUFLOX) OPTH SOL 5ML OU SCH ×4 (08:22→19:43)
[2016-10-04] MEDS: LIDOCAINE 5% (LIDODERM) PATCH TD SCH (08:22)
[2016-10-04] MEDS: NEOSPORIN TOP OINT 15GM TOP SCH (08:23)
[2016-10-04] MEDS: LACTIC ACID 12% LOTION 225 GM BTL TOP SCH (08:24)
[2016-10-04] MEDS: diphenhydrAMINE 25 MG CAP PO PRN (12:45)
[2016-10-04] MEDS: **NOTE PATIENT COMMENT** MISC XX SCH (19:42)
[2016-10-05 06:57] LABS: MEAN CORPUSCULAR HEMOGLOBIN 24.3 pg (27.0-33.0); MEAN CORPUSCULAR HGB CONC 29.9 g/dl (32.0-36.5); MEAN CORPUSCULAR VOLUME 81.1 fl (80.0-96.0); RED CELL DISTRIBUTION WIDTH 19.3 % (11.5-14.5); WHITE BLOOD COUNT 7.1 K/mm3 (4.0-10.0)
[2016-10-05 07:00] VITALS: BP 137/62
[2016-10-05] MEDS: LIDOCAINE 5% (LIDODERM) PATCH TD SCH (07:07)
[2016-10-05] MEDS: DIGOXIN 0.125 MG TAB PO SCH (07:07)
[2016-10-05] MEDS: GABAPENTIN 100 MG CAP PO SCH (07:07)
[2016-10-05] MEDS: diltiaZEM **CD** 180 MG CAP PO SCH (07:07)
[2016-10-05] MEDS: SENOKOT S TAB PO SCH ×2 (07:07→20:00)
[2016-10-05] MEDS: DOCUSATE SODIUM 100 MG CAP PO SCH ×2 (07:07→20:00)
[2016-10-05] MEDS: BENZONATATE 100 MG CAP PO SCH ×3 (07:07→20:00)
[2016-10-05] MEDS: APIXABAN 2.5 MG TAB (ELIQUIS) PO SCH ×2 (07:07→20:00)
[2016-10-05] MEDS: guaiFENesin ER 600 MG TAB PO SCH ×2 (07:07→20:00)
[2016-10-05] MEDS: MIRALAX *UNIT DOSE* 17GM PACKET PO SCH (07:08)
[2016-10-05] MEDS: POLYVINYL ALCOHOL OPHTH SOLN 15 ML(LIQUITEARS) OU SCH ×3 (07:08→20:03)
[2016-10-05] MEDS: IPRATROPIUM 0.5MG/ALBUTEROL 2.5MG INH SOL UD 3ML (DUONEB)(J7620) NEB SCH ×2 (07:08→19:38)
[2016-10-05] MEDS: SODIUM CHLORIDE NASAL 0.65% SPRAY BTL (OCEAN) SCH ×2 (07:08→20:02)
[2016-10-05] MEDS: OFLOXACIN 0.3 % (OCUFLOX) OPTH SOL 5ML OU SCH ×4 (07:08→20:02)
[2016-10-05 07:10] LABS: CALCIUM LEVEL 8.6 MG/DL (8.8-10.2); CREATININE FOR GFR 8.65 MG/DL (0.70-1.30); POTASSIUM SERUM 4.8 MEQ/L (3.5-5.1)
[2016-10-05] MEDS ORDERED: MIRALAX *UNIT DOSE* 17GM PACKET PO PRN (08:45)
[2016-10-05] MEDS: LACTIC ACID 12% LOTION 225 GM BTL TOP SCH (08:59)
[2016-10-05] MEDS: NEOSPORIN TOP OINT 15GM TOP SCH (09:00)
--- NOTE | 2016-10-05 10:58 | IPN ---
DATE: 10/05/2016 Mr. Fernandez is seen this morning during dialysis. He is feeling well and denies any complaints. He underwent left [id number] amputation about 3 weeks ago and is currently waiting for care home bed. He has ischemic ulcer on his right heel and has a protective air splint on his foot. He is afebrile and reports a good appetite. Patient denies any dyspnea or chest pain. On physical exam, temperature 97.8 degrees Fahrenheit, heart rate 97 per minute and respiratory rate 20 per minute. Blood pressure is 109/74 mmHg. His head is atraumatic. Neck veins are mildly distended. He is edentulous and without any oral thrush or ulcers. He is using oxygen via nasal cannula. Pupils equal and reactive to light and sclera is anicteric. Heart sounds regular and somewhat tachycardiac. Lungs clear to auscultation. Abdomen soft and nontender. Extremities have no cyanosis or clubbing. Left arm AV fistula is functioning. He has left rdgpt-qyw-owzi amputation and stump is wrapped in dressing. He has a productive air splint on his right foot. Today's labs show BUN 38 and creatinine 8.65. Potassium level 4.8. Hemoglobin is 9.6 and hematocrit 32.0 with WBC count 7.1. PROBLEMS: 1. End-stage renal disease. Patient is currently being dialyzed. He is tolerating his dialysis treatment reasonably well. Volume status seems to be compensated. 2. Anemia. His anemia is mild and likely to improve. He is receiving Aranesp and Venofer during dialysis. 3,. Hypertension. Blood pressure is well-controlled on current antihypertensive medications. DISPOSITION: Patient is currently waiting for a care home placement.
[2016-10-05] MEDS: **NOTE PATIENT COMMENT** MISC XX SCH (19:59)
[2016-10-06 08:00] VITALS: BP 145/67
[2016-10-06] MEDS: IPRATROPIUM 0.5MG/ALBUTEROL 2.5MG INH SOL UD 3ML (DUONEB)(J7620) NEB SCH ×2 (08:48→19:34)
[2016-10-06] MEDS: BENZONATATE 100 MG CAP PO SCH ×3 (10:26→20:10)
[2016-10-06] MEDS: diltiaZEM **CD** 180 MG CAP PO SCH (10:26)
[2016-10-06] MEDS: guaiFENesin ER 600 MG TAB PO SCH ×2 (10:26→20:10)
[2016-10-06] MEDS: SENOKOT S TAB PO SCH ×2 (10:27→20:10)
[2016-10-06] MEDS: DOCUSATE SODIUM 100 MG CAP PO SCH ×2 (10:27→20:09)
[2016-10-06] MEDS: APIXABAN 2.5 MG TAB (ELIQUIS) PO SCH ×2 (10:27→20:09)
[2016-10-06] MEDS: GABAPENTIN 100 MG CAP PO SCH (10:27)
[2016-10-06] MEDS: LIDOCAINE 5% (LIDODERM) PATCH TD SCH (10:28)
[2016-10-06] MEDS: LACTIC ACID 12% LOTION 225 GM BTL TOP SCH (10:29)
[2016-10-06] MEDS: SODIUM CHLORIDE NASAL 0.65% SPRAY BTL (OCEAN) SCH ×2 (10:34→20:10)
[2016-10-06] MEDS: OFLOXACIN 0.3 % (OCUFLOX) OPTH SOL 5ML OU SCH ×4 (10:35→20:10)
[2016-10-06] MEDS: POLYVINYL ALCOHOL OPHTH SOLN 15 ML(LIQUITEARS) OU SCH ×3 (10:35→20:10)
[2016-10-06] MEDS: NEOSPORIN TOP OINT 15GM TOP SCH (10:36)
[2016-10-06] MEDS: **NOTE PATIENT COMMENT** MISC XX SCH (20:10)
[2016-10-07] MEDS: BENZONATATE 100 MG CAP PO SCH ×3 (05:51→19:46)
[2016-10-07] MEDS: LIDOCAINE 5% (LIDODERM) PATCH TD SCH (05:51)
[2016-10-07] MEDS: guaiFENesin ER 600 MG TAB PO SCH ×2 (05:52→19:46)
[2016-10-07] MEDS: DOCUSATE SODIUM 100 MG CAP PO SCH ×2 (05:52→19:45)
[2016-10-07] MEDS: SENOKOT S TAB PO SCH ×2 (05:52→19:45)
[2016-10-07] MEDS: APIXABAN 2.5 MG TAB (ELIQUIS) PO SCH ×2 (05:53→19:45)
[2016-10-07] MEDS: GABAPENTIN 100 MG CAP PO SCH (05:53)
[2016-10-07] MEDS: DIGOXIN 0.125 MG TAB PO SCH (05:53)
[2016-10-07] MEDS: SODIUM CHLORIDE NASAL 0.65% SPRAY BTL (OCEAN) SCH ×2 (05:54→19:46)
[2016-10-07] MEDS: diltiaZEM **CD** 180 MG CAP PO SCH (05:54)
[2016-10-07] MEDS: OFLOXACIN 0.3 % (OCUFLOX) OPTH SOL 5ML OU SCH ×4 (05:55→22:01)
[2016-10-07] MEDS: POLYVINYL ALCOHOL OPHTH SOLN 15 ML(LIQUITEARS) OU SCH ×3 (05:55→19:46)
[2016-10-07 06:00] VITALS: BP 142/65
[2016-10-07] MEDS: IPRATROPIUM 0.5MG/ALBUTEROL 2.5MG INH SOL UD 3ML (DUONEB)(J7620) NEB SCH ×2 (07:21→19:18)
[2016-10-07 08:00] VITALS: BP 124/57
[2016-10-07] MEDS: NEOSPORIN TOP OINT 15GM TOP SCH (12:02)
[2016-10-07] MEDS: LACTIC ACID 12% LOTION 225 GM BTL TOP SCH (12:02)
[2016-10-07 13:59] LABS: CALCIUM LEVEL 8.8 MG/DL (8.8-10.2); CREATININE FOR GFR 7.75 MG/DL (0.70-1.30); POTASSIUM SERUM 4.3 MEQ/L (3.5-5.1)
--- NOTE | 2016-10-07 19:34 | IPN ---
DATE: 10/07/2016 Mr. Fernandez is seen this afternoon on his bedside during dialysis. He is feeling well and denies any complaints. He has no dyspnea, chest pain, nausea, or vomiting. He has a new ulcer on his right second toe. His foot remains in the protective foam pad because ulcer on his right heel. PHYSICAL EXAMINATION: VITAL SIGNS: Temperature 98.6 degrees Fahrenheit, heart rate 82 per minute, and respiratory rate 18 per minute. Blood pressure 124/57 mmHg and oxygen saturation 95% on room air. HEENT: His head is atraumatic. Ears, nose and throat are unremarkable. Neck is supple and there is no jugular venous distention (JVD) or thyroid enlargement. Trachea is midline. Pupils are equal and reactive to light and sclera is anicteric. HEART: Sounds are regular. RESPIRATORY: Lungs sound clear to auscultation. ABDOMEN: Soft and nontender and without palpable organomegaly. EXTREMITIES: No cyanosis or clubbing. Left arm arteriovenous (AV) fistula is working well. He has left zuwgg-[id number]-[id number] amputation. Right foot is in the foam protective padding because of ulcer on his right heel. He has a new ulcer on the right second toe. LABORATORY DATA: Today's laboratories show sodium 136 and potassium 4.3. BUN 32 and creatinine 7.75. PROBLEMS: 1. End-stage renal disease. The patient is being dialyzed at present and he is tolerating dialysis very well. His electrolytes are within normal range. 2. Anemia. His anemia has been gradually improving and stable. He receives Aranesp once a week and also receives Venofer 100 mg with each dialysys. 3. Hypertension. Blood pressure control has been optimal. No changes in antihypertensives are needed. DISPOSITION: From a renal standpoint, the patient can be discharged to [facility]. However, he is currently waiting for a bed in [facility].
[2016-10-07] MEDS: **NOTE PATIENT COMMENT** MISC XX SCH (19:50)
[2016-10-08 06:57] LABS: MEAN CORPUSCULAR HGB CONC 30.1 g/dl (32.0-36.5); RED CELL DISTRIBUTION WIDTH 17.9 % (11.5-14.5); WHITE BLOOD COUNT 5.4 K/mm3 (4.0-10.0)
[2016-10-08 07:19] LABS: CALCIUM LEVEL 8.7 MG/DL (8.8-10.2); CREATININE FOR GFR 4.73 MG/DL (0.70-1.30); POTASSIUM SERUM 3.6 MEQ/L (3.5-5.1)
[2016-10-08] MEDS: IPRATROPIUM 0.5MG/ALBUTEROL 2.5MG INH SOL UD 3ML (DUONEB)(J7620) NEB SCH ×2 (07:53→19:50)
[2016-10-08 08:00] VITALS: BP 135/65
[2016-10-08] MEDS: LIDOCAINE 5% (LIDODERM) PATCH TD SCH (08:47)
[2016-10-08] MEDS: SODIUM CHLORIDE NASAL 0.65% SPRAY BTL (OCEAN) SCH ×2 (08:47→20:05)
[2016-10-08] MEDS: POLYVINYL ALCOHOL OPHTH SOLN 15 ML(LIQUITEARS) OU SCH ×3 (08:48→20:05)
[2016-10-08] MEDS: APIXABAN 2.5 MG TAB (ELIQUIS) PO SCH ×2 (08:48→20:05)
[2016-10-08] MEDS: NEOSPORIN TOP OINT 15GM TOP SCH (08:48)
[2016-10-08] MEDS: OFLOXACIN 0.3 % (OCUFLOX) OPTH SOL 5ML OU SCH ×4 (08:48→20:05)
[2016-10-08] MEDS: SENOKOT S TAB PO SCH ×2 (08:49→20:05)
[2016-10-08] MEDS: diltiaZEM **CD** 180 MG CAP PO SCH (08:49)
[2016-10-08] MEDS: guaiFENesin ER 600 MG TAB PO SCH ×2 (08:49→20:05)
[2016-10-08] MEDS: GABAPENTIN 100 MG CAP PO SCH (08:49)
[2016-10-08] MEDS: BENZONATATE 100 MG CAP PO SCH ×3 (08:49→20:05)
[2016-10-08] MEDS: DOCUSATE SODIUM 100 MG CAP PO SCH ×2 (08:49→20:05)
[2016-10-08] MEDS: LACTIC ACID 12% LOTION 225 GM BTL TOP SCH (08:50)
[2016-10-08] MEDS: diphenhydrAMINE 25 MG CAP PO PRN (17:01)
[2016-10-08] MEDS: **NOTE PATIENT COMMENT** MISC XX SCH (20:05)
[2016-10-09] MEDS: guaiFENesin ER 600 MG TAB PO SCH ×2 (06:34→19:37)
[2016-10-09] MEDS: APIXABAN 2.5 MG TAB (ELIQUIS) PO SCH ×2 (06:34→19:37)
[2016-10-09] MEDS: BENZONATATE 100 MG CAP PO SCH ×3 (06:34→19:37)
[2016-10-09] MEDS: diltiaZEM **CD** 180 MG CAP PO SCH (06:34)
[2016-10-09] MEDS: SENOKOT S TAB PO SCH ×2 (06:34→19:37)
[2016-10-09] MEDS: DOCUSATE SODIUM 100 MG CAP PO SCH ×2 (06:34→19:37)
[2016-10-09] MEDS: POLYVINYL ALCOHOL OPHTH SOLN 15 ML(LIQUITEARS) OU SCH ×3 (06:35→19:37)
[2016-10-09] MEDS: DIGOXIN 0.125 MG TAB PO SCH (06:35)
[2016-10-09] MEDS: OFLOXACIN 0.3 % (OCUFLOX) OPTH SOL 5ML OU SCH ×2 (06:35→14:17)
[2016-10-09] MEDS: GABAPENTIN 100 MG CAP PO SCH (06:35)
[2016-10-09] MEDS: LIDOCAINE 5% (LIDODERM) PATCH TD SCH (06:35)
[2016-10-09] MEDS: SODIUM CHLORIDE NASAL 0.65% SPRAY BTL (OCEAN) SCH ×2 (06:35→19:37)
[2016-10-09 07:00] VITALS: BP 143/65
[2016-10-09] MEDS: IPRATROPIUM 0.5MG/ALBUTEROL 2.5MG INH SOL UD 3ML (DUONEB)(J7620) NEB SCH ×2 (07:08→18:18)
[2016-10-09] MEDS: LACTIC ACID 12% LOTION 225 GM BTL TOP SCH (09:19)
[2016-10-09] MEDS: NEOSPORIN TOP OINT 15GM TOP SCH (09:19)
[2016-10-09] MEDS: **NOTE PATIENT COMMENT** MISC XX SCH (19:37)
[2016-10-10 06:15] VITALS: BP 112/68
[2016-10-10] MEDS: diltiaZEM **CD** 180 MG CAP PO SCH ×2 (06:16→08:15)
[2016-10-10] MEDS: APIXABAN 2.5 MG TAB (ELIQUIS) PO SCH ×2 (06:19→20:40)
[2016-10-10] MEDS: GABAPENTIN 100 MG CAP PO SCH (06:19)
[2016-10-10] MEDS: DOCUSATE SODIUM 100 MG CAP PO SCH ×2 (06:19→20:40)
[2016-10-10] MEDS: SENOKOT S TAB PO SCH ×2 (06:19→20:40)
[2016-10-10] MEDS: guaiFENesin ER 600 MG TAB PO SCH ×2 (06:19→20:40)
[2016-10-10] MEDS: LIDOCAINE 5% (LIDODERM) PATCH TD SCH (06:20)
[2016-10-10] MEDS: POLYVINYL ALCOHOL OPHTH SOLN 15 ML(LIQUITEARS) OU SCH ×3 (06:20→20:42)
[2016-10-10] MEDS: SODIUM CHLORIDE NASAL 0.65% SPRAY BTL (OCEAN) SCH ×2 (06:20→20:42)
[2016-10-10] MEDS: BENZONATATE 100 MG CAP PO SCH ×3 (06:20→20:40)
[2016-10-10] MEDS: IPRATROPIUM 0.5MG/ALBUTEROL 2.5MG INH SOL UD 3ML (DUONEB)(J7620) NEB SCH ×2 (07:29→19:26)
[2016-10-10 07:47] VITALS: BP 120/60
[2016-10-10] MEDS: NEOSPORIN TOP OINT 15GM TOP SCH (08:15)
[2016-10-10] MEDS: LACTIC ACID 12% LOTION 225 GM BTL TOP SCH (08:16)
[2016-10-10] MEDS: **NOTE PATIENT COMMENT** MISC XX SCH (20:42)
[2016-10-11] MEDS: IPRATROPIUM 0.5MG/ALBUTEROL 2.5MG INH SOL UD 3ML (DUONEB)(J7620) NEB SCH ×2 (07:11→19:31)
[2016-10-11 08:00] VITALS: BP 129/61
[2016-10-11] MEDS: POLYVINYL ALCOHOL OPHTH SOLN 15 ML(LIQUITEARS) OU SCH ×3 (09:18→20:04)
[2016-10-11] MEDS: SENOKOT S TAB PO SCH ×2 (09:18→20:03)
[2016-10-11] MEDS: SODIUM CHLORIDE NASAL 0.65% SPRAY BTL (OCEAN) SCH ×2 (09:18→20:03)
[2016-10-11] MEDS: GABAPENTIN 100 MG CAP PO SCH (09:18)
[2016-10-11] MEDS: guaiFENesin ER 600 MG TAB PO SCH ×2 (09:18→20:03)
[2016-10-11] MEDS: APIXABAN 2.5 MG TAB (ELIQUIS) PO SCH ×2 (09:18→20:03)
[2016-10-11] MEDS: DOCUSATE SODIUM 100 MG CAP PO SCH ×2 (09:18→20:03)
[2016-10-11] MEDS: LACTIC ACID 12% LOTION 225 GM BTL TOP SCH (09:18)
[2016-10-11] MEDS: LIDOCAINE 5% (LIDODERM) PATCH TD SCH (09:18)
[2016-10-11] MEDS: diltiaZEM **CD** 180 MG CAP PO SCH (09:18)
[2016-10-11] MEDS: NEOSPORIN TOP OINT 15GM TOP SCH (09:19)
[2016-10-11] MEDS: BENZONATATE 100 MG CAP PO SCH ×3 (09:19→20:03)
--- NOTE | 2016-10-11 15:12 | IPN ---
DATE: 10/10/2016 SUBJECTIVE: Patient was seen and examined during hemodialysis procedure. He is tolerating the hemodialysis procedure well. There are no active complaints at this time. REVIEW OF SYSTEMS: Patient denies any fevers, chills, rigors, headache, nausea, vomiting, chest pain, shortness of breath, pain in abdomen, constipation. Rest of review of systems is negative. OBJECTIVE: VITAL SIGNS: Temperature is 98.7 degrees Fahrenheit, blood pressure is 120/60, pulse is 96, respiratory rate of 18, saturating 96% on room air. Intake and output. There is no urine output recorded. Weight on the bed scale was 96.4 kg yesterday. PHYSICAL EXAMINATION: GENERAL: Patient is awake, alert, oriented times three, lying in bed, getting hemodialysis. No active complaints at this time. HEAD AND NECK: Extraocular muscles intact. Pupils are equally round and reactive to light. Patient has a squint. NECK: Supple. There is no jugular venous distention (JVD). CARDIOVASCULAR: S1, S2. Heart rate is irregular. RESPIRATORY: Chest is clear to auscultation bilaterally. Bilateral equal air entry. ABDOMEN: Soft. Positive bowel sounds. Nontender. No ascites. No hepatosplenomegaly. EXTREMITIES: Patient has a left below-knee amputation with a sock on it. The patient has a waffle boot on the right foot with multiple ulcerations on the dorsum of the toes. He has a right heel ulcer covered with a dressing as well. AV ACCESS: The patient has a left forearm AV fistula, which is being used for dialysis at this time. CENTRAL NERVOUS SYSTEM: No focal neurological deficit. Power is 5/5 in all extremities. LABORATORY REVIEW: CBC showed a hemoglobin of 10. BMP showed sodium 138, potassium 3.6, chloride 100, bicarbonate 30, BUN 15, creatinine 4.7, calcium was 8.7. MEDICATIONS: Patient's current medications were all reviewed by me. There is no change in the medications at this time. ASSESSMENT: A 66-year-old male with past medical history of end-stage renal disease, on hemodialysis. Currently waiting [facility]. Nephrology service is following the patient for management of end-stage renal disease. PLAN: 1. End-stage renal disease. Patient is being dialyzed today. His regular dates of dialysis are Wednesday, Wednesday, Wednesday, but because of a change in the schedule, he is being dialyzed today. No issues with hemodialysis today. 2. Anemia and end-stage renal disease. Patient's hemoglobin at this time is 10, which is in the acceptable limit. He gets Aranesp 300 mcg IV with hemodialysis. He also gets Venofer. Continue current dose of Aranesp. 3. Atrial fibrillation. Currently, atrial fibrillation is rate controlled at this time. Continue current dose of digoxin on Wednesday, Wednesday and Wednesday. Diltiazem 180 mg daily. He is on Eliquis 2.5 mg twice a day. 4. Status post left below the knee amputation. His left below the knee amputation stump is healed. He is wearing a sock on the left BKA. Continue physical therapy (PT) for now. DISCHARGE PLANNING: It is okay to discharge the patient from nephrology standpoint whenever he has a bed available. The patient is awaiting for a bed in [facility].
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
[2016-10-11] MEDS: **NOTE PATIENT COMMENT** MISC XX SCH (20:04)
[2016-10-12] MEDS: LIDOCAINE 5% (LIDODERM) PATCH TD SCH (05:54)
[2016-10-12] MEDS: diltiaZEM **CD** 180 MG CAP PO SCH (05:55)
[2016-10-12] MEDS: SENOKOT S TAB PO SCH ×2 (05:55→20:01)
[2016-10-12] MEDS: APIXABAN 2.5 MG TAB (ELIQUIS) PO SCH ×2 (05:55→20:01)
[2016-10-12] MEDS: GABAPENTIN 100 MG CAP PO SCH (05:55)
[2016-10-12] MEDS: guaiFENesin ER 600 MG TAB PO SCH ×2 (05:56→20:01)
[2016-10-12] MEDS: DOCUSATE SODIUM 100 MG CAP PO SCH ×2 (05:56→20:01)
[2016-10-12] MEDS: BENZONATATE 100 MG CAP PO SCH ×3 (05:56→20:01)
[2016-10-12] MEDS: DIGOXIN 0.125 MG TAB PO SCH (05:56)
[2016-10-12] MEDS: POLYVINYL ALCOHOL OPHTH SOLN 15 ML(LIQUITEARS) OU SCH ×3 (05:57→20:02)
[2016-10-12] MEDS: SODIUM CHLORIDE NASAL 0.65% SPRAY BTL (OCEAN) SCH ×2 (05:57→20:02)
[2016-10-12 07:00] VITALS: BP 145/70
[2016-10-12 07:06] LABS: MEAN CORPUSCULAR HEMOGLOBIN 23.8 pg (27.0-33.0); MEAN CORPUSCULAR HGB CONC 29.3 g/dl (32.0-36.5); MEAN CORPUSCULAR VOLUME 81.2 fl (80.0-96.0); WHITE BLOOD COUNT 6.5 K/mm3 (4.0-10.0)
[2016-10-12 07:17] LABS: CREATININE FOR GFR 7.36 MG/DL (0.70-1.30); GLOMERULAR FILTRATION RATE 9.6 (>49); POTASSIUM SERUM 4.3 MEQ/L (3.5-5.1)
[2016-10-12] MEDS: IPRATROPIUM 0.5MG/ALBUTEROL 2.5MG INH SOL UD 3ML (DUONEB)(J7620) NEB SCH ×2 (07:21→18:43)
[2016-10-12] MEDS: PERCOCET 5MG/325MG TAB PO PRN (11:32)
[2016-10-12] MEDS: NEOSPORIN TOP OINT 15GM TOP SCH (11:33)
[2016-10-12] MEDS: LACTIC ACID 12% LOTION 225 GM BTL TOP SCH (11:34)
--- NOTE | 2016-10-12 17:33 | IPN ---
DATE: 10/12/2016 SUBJECTIVE: The patient is seen and examined at bedside. States he is doing well. He has a new off-loading boot for his heel which allows him to ambulate a little better with therapy. He is awaiting his prosthetic for his left lower extremity. Vitals are stable. LOWER EXTREMITY EXAMINATION: Right heel wound is examined. There is fibrous tissue to 100% of the wound base. There is no necrotic or purulence noted. No malodor to the heel wound. Measurement is approximately 3 cm in diameter. There are ulcerations to the dorsal aspect of the toes on the right foot, most significant on the third toe with some eschar over the distal interphalangeal joint. ASSESSMENT: A 66-year-old male status post left below-knee amputation and right pressure ulcerations with peripheral vascular disease. PLAN: Right heel wound debridement including subcutaneous tissue. Excisional debridement was preformed. Continue current offloading and wound care. Continue antibiotic ointment to the toes. Will plan followup with vascular upon discharge. He will followup in my office once discharged.
[2016-10-12] MEDS: **NOTE PATIENT COMMENT** MISC XX SCH (20:02)
[2016-10-13 07:00] VITALS: BP 153/68
[2016-10-13] MEDS: IPRATROPIUM 0.5MG/ALBUTEROL 2.5MG INH SOL UD 3ML (DUONEB)(J7620) NEB SCH ×2 (08:04→20:05)
[2016-10-13 08:05] LABS: ALBUMIN 2.9 GM/DL (3.2-5.2); CALCIUM LEVEL 8.7 MG/DL (8.8-10.2); CREATININE FOR GFR 8.67 MG/DL (0.70-1.30); GLOMERULAR FILTRATION RATE 7.9 (>49); PHOSPHORUS LEVEL 4.8 MG/DL (2.5-4.9); POTASSIUM SERUM 4.9 MEQ/L (3.5-5.1)
[2016-10-13] MEDS: LIDOCAINE 5% (LIDODERM) PATCH TD SCH (08:52)
[2016-10-13] MEDS: guaiFENesin ER 600 MG TAB PO SCH ×2 (08:52→20:12)
[2016-10-13] MEDS: GABAPENTIN 100 MG CAP PO SCH (08:52)
[2016-10-13] MEDS: BENZONATATE 100 MG CAP PO SCH ×3 (08:52→20:12)
[2016-10-13] MEDS: DOCUSATE SODIUM 100 MG CAP PO SCH ×2 (08:52→20:12)
[2016-10-13] MEDS: POLYVINYL ALCOHOL OPHTH SOLN 15 ML(LIQUITEARS) OU SCH ×3 (08:52→20:12)
[2016-10-13] MEDS: APIXABAN 2.5 MG TAB (ELIQUIS) PO SCH ×2 (08:52→20:12)
[2016-10-13] MEDS: SODIUM CHLORIDE NASAL 0.65% SPRAY BTL (OCEAN) SCH ×2 (08:52→20:12)
[2016-10-13] MEDS: OLOPATADINE 0.1% OPHTH SOL 5ML(PATANOL) OU PRN (08:52)
[2016-10-13] MEDS: SENOKOT S TAB PO SCH ×2 (08:52→20:12)
[2016-10-13] MEDS: NEOSPORIN TOP OINT 15GM TOP SCH (08:53)
[2016-10-13] MEDS: diltiaZEM **CD** 180 MG CAP PO SCH (08:53)
[2016-10-13] MEDS: LACTIC ACID 12% LOTION 225 GM BTL TOP SCH (08:54)
--- NOTE | 2016-10-13 12:20 | IPN ---
DATE: 10/13/2016 SUBJECTIVE: Patient was seen and examined today in the morning and again during hemodialysis procedure. Patient is tolerating the hemodialysis procedure well. No acute complaint at this time. REVIEW OF SYSTEMS: Patient denies any fever, chills, rigors, headache, nausea, vomiting, chest pain, shortness of breath, pain in abdomen, constipation. Rest of review of systems is negative. OBJECTIVE: Vital signs: Temperature 99.2 degrees Fahrenheit, blood pressure 145/70, pulse 99, respiratory rate 14, saturating 97% on room air. Intake and output: There is no urine output recorded. Weight on the bed scale is 99.1 kg. PHYSICAL EXAMINATION: General: Patient is awake, alert, oriented times three lying in bed in no apparent distress. Head and neck exam: Extraocular muscles intact. Patient has a squint. Mucous membranes are moist. Neck is supple. There is no jugular venous distention (JVD). Cardiovascular: S1, S2. Irregular heart rate. Respiratory: Chest is clear to auscultation bilaterally. Bilateral equal air entry. No rales or rhonchi. Abdomen: Soft, positive bowel sounds. Nontender. No ascites. No hepatosplenomegaly. Extremities: Patient has a left below knee amputation with sock on the stump. Patient is wearing waffle boot on the right foot and his right heel is stressed. He has multiple ulcerations on the dorsum of right foot toes which are covered with antibiotic ointment. AV access: Patient has a left forearm AV fistula which is used for dialysis. ORIENTATION AND MOBILITY SPECIALIST: No focal neurological deficit. Power is 5/5 in all extremities. LAB REVIEW: CBC showed hemoglobin of 9.6, platelets of 137. BMP showed sodium 138, potassium 4.9, chloride 101, bicarbonate 28, BUN 43, creatinine 8.6, calcium 8.7. Albumin is 2.9. CURRENT MEDICATIONS: Patient's medications are all reviewed by me. There is no change in the medication at this time. ASSESSMENT: 66-year-old male with past medical history of end stage renal disease on hemodialysis. Currently he is awaiting half-way placement. Nephrology service following the patient for management of end stage renal disease and hemodialysis. PLAN: 1. End stage renal disease. Patient is being dialyzed today. His regular days are Wednesday, Wednesday, Wednesday but because of our schedule, we are dialyzing him on Wednesday, , Wednesday at this time. No issues with hemodialysis. 2. Anemia and end stage renal disease. Patient's hemoglobin is less than 10. Continue current dose of Aranesp 300 mcg IV with hemodialysis. 3. Chronic atrial fibrillation. Patient's heart rate is currently well controlled. Continue current dose of Eliquis 2.5 mg twice daily, digoxin 0.125 mg by mouth Wednesday, Wednesday, Wednesday and diltiazem 180 mg by mouth daily.
[2016-10-13] MEDS ORDERED: LIDOCAINE 1% SDV 5 ML VIAL SQ ONE (13:30)
[2016-10-13] MEDS ORDERED: HEPARIN 1,000 UNITS/ML 10ML VIAL (FOR RADIOLOGY& DIALYSIS ONLY) XX ONE (13:30)
[2016-10-13] MEDS: **NOTE PATIENT COMMENT** MISC XX SCH (20:12)
[2016-10-14 07:00] VITALS: BP 145/63
[2016-10-14] MEDS: IPRATROPIUM 0.5MG/ALBUTEROL 2.5MG INH SOL UD 3ML (DUONEB)(J7620) NEB SCH ×2 (07:17→20:31)
[2016-10-14] MEDS: LACTIC ACID 12% LOTION 225 GM BTL TOP SCH (08:16)
[2016-10-14] MEDS: SODIUM CHLORIDE NASAL 0.65% SPRAY BTL (OCEAN) SCH ×2 (08:16→20:06)
[2016-10-14] MEDS: NEOSPORIN TOP OINT 15GM TOP SCH (08:16)
[2016-10-14] MEDS: GABAPENTIN 100 MG CAP PO SCH (08:16)
[2016-10-14] MEDS: POLYVINYL ALCOHOL OPHTH SOLN 15 ML(LIQUITEARS) OU SCH ×3 (08:16→20:05)
[2016-10-14] MEDS: APIXABAN 2.5 MG TAB (ELIQUIS) PO SCH ×2 (08:16→20:05)
[2016-10-14] MEDS: LIDOCAINE 5% (LIDODERM) PATCH TD SCH (08:16)
[2016-10-14] MEDS: BENZONATATE 100 MG CAP PO SCH ×3 (08:17→20:05)
[2016-10-14] MEDS: DOCUSATE SODIUM 100 MG CAP PO SCH ×2 (08:17→20:05)
[2016-10-14] MEDS: SENOKOT S TAB PO SCH ×2 (08:17→20:05)
[2016-10-14] MEDS: diltiaZEM **CD** 180 MG CAP PO SCH (08:17)
[2016-10-14] MEDS: DIGOXIN 0.125 MG TAB PO SCH (08:17)
[2016-10-14] MEDS: PERCOCET 5MG/325MG TAB PO PRN (08:18)
[2016-10-14] MEDS: guaiFENesin ER 600 MG TAB PO SCH ×2 (08:25→20:05)
[2016-10-14] MEDS: **NOTE PATIENT COMMENT** MISC XX SCH (20:06)
[2016-10-15] MEDS: LIDOCAINE 5% (LIDODERM) PATCH TD SCH (06:17)
[2016-10-15] MEDS: GABAPENTIN 100 MG CAP PO SCH (06:19)
[2016-10-15] MEDS: DOCUSATE SODIUM 100 MG CAP PO SCH ×2 (06:19→19:45)
[2016-10-15] MEDS: SENOKOT S TAB PO SCH ×2 (06:19→19:45)
[2016-10-15] MEDS: guaiFENesin ER 600 MG TAB PO SCH ×2 (06:20→19:45)
[2016-10-15] MEDS: SODIUM CHLORIDE NASAL 0.65% SPRAY BTL (OCEAN) SCH ×2 (06:20→19:46)
[2016-10-15] MEDS: BENZONATATE 100 MG CAP PO SCH ×3 (06:20→19:45)
[2016-10-15] MEDS: APIXABAN 2.5 MG TAB (ELIQUIS) PO SCH ×2 (06:20→19:45)
[2016-10-15] MEDS: diltiaZEM **CD** 180 MG CAP PO SCH (06:20)
[2016-10-15] MEDS: POLYVINYL ALCOHOL OPHTH SOLN 15 ML(LIQUITEARS) OU SCH ×3 (06:21→19:46)
[2016-10-15 08:00] VITALS: BP 145/67
[2016-10-15] MEDS: IPRATROPIUM 0.5MG/ALBUTEROL 2.5MG INH SOL UD 3ML (DUONEB)(J7620) NEB SCH ×2 (08:21→20:38)
[2016-10-15 08:36] LABS: ALBUMIN 2.9 GM/DL (3.2-5.2); CALCIUM LEVEL 9.1 MG/DL (8.8-10.2); CREATININE FOR GFR 7.17 MG/DL (0.70-1.30); GLOMERULAR FILTRATION RATE 9.9 (>49); POTASSIUM SERUM 4.3 MEQ/L (3.5-5.1)
[2016-10-15] MEDS: LACTIC ACID 12% LOTION 225 GM BTL TOP SCH (08:38)
[2016-10-15] MEDS: NEOSPORIN TOP OINT 15GM TOP SCH (08:38)
--- NOTE | 2016-10-15 19:27 | IPN ---
DATE: 10/15/2016 SUBJECTIVE: The patient was seen and examined today in hemodialysis. The patient does not have any active complaints today. He is tolerating the hemodialysis well. REVIEW OF SYSTEMS: The patient denies any fevers, chills, rigors, headaches, nausea, vomiting, chest pain, shortness of breath, pain abdomen, constipation, or diarrhea. OBJECTIVE: VITAL SIGNS: Temperature is 97 degrees Fahrenheit, blood pressure is 145/67, pulse is 80, respiratory rate 16, saturating 95% on room air. INTAKE AND OUTPUT: There is no urine output recorded and there is no bed scale weight available. PHYSICAL EXAMINATION: GENERAL: Patient awake, alert, and oriented times three, lying in bed, no apparent distress. HEAD/NECK: Extraocular muscles intact. Pupils equal, round, reactive to light and accommodation. The patient has a squint. Mucous membranes are moist. Neck is supple. There is no jugular venous distention (JVD). CARDIOVASCULAR: S1, S2, irregular heart rate. No murmur, rub, or gallop. RESPIRATORY: Chest is clear to auscultation bilaterally. Bilateral equal air entry. No rales or rhonchi. ABDOMEN: Soft. Positive bowel sounds. Nontender. No ascites, no hepatosplenomegaly. EXTREMITIES: The patient has a left below-knee amputation with a sock on the stump, and the patient is wearing a waffle boot on the right foot, and he has dressing on the right heel as well. ARTERIOVENOUS ACCESS: The patient has a left forearm AV fistula for hemodialysis, which is working well. CENTRAL NERVOUS SYSTEM (RESIST COATER DEVELOPER): No focal neurological deficit. Power is 5/5 in all extremities. LABORATORY DATA: CBC showed a WBC of 6.5, hemoglobin 9.6, platelets 137. BMP showed sodium 136, potassium 4.3, chloride 98, bicarbonate 29, BUN 31, creatinine 7.17, phosphorus is 5. CURRENT MEDICATIONS: The patient's medications were all reviewed by me. There is no significant change in patient's current medications at this time. ASSESSMENT: A 66-year-old male with past medical history of end-stage renal disease on hemodialysis. Currently he is awaiting group home placement. Nephrology service follows the patient for management of end-stage renal disease on hemodialysis. PLAN: 1. End-stage renal disease: The patient is being dialyzed today according to his regular schedule. Next hemodialysis session will be on Wednesday. 2. Anemia in end-stage renal disease. Continue current dose of Aranesp 300 mcg intravenous (IV) with hemodialysis.
[2016-10-15] MEDS: **NOTE PATIENT COMMENT** MISC XX SCH (19:46)
[2016-10-16 07:00] VITALS: BP 112/53
[2016-10-16] MEDS: IPRATROPIUM 0.5MG/ALBUTEROL 2.5MG INH SOL UD 3ML (DUONEB)(J7620) NEB SCH ×2 (07:53→20:24)
[2016-10-16] MEDS: diltiaZEM **CD** 180 MG CAP PO SCH (09:00)
[2016-10-16] MEDS: LACTIC ACID 12% LOTION 225 GM BTL TOP SCH (09:14)
[2016-10-16] MEDS: SODIUM CHLORIDE NASAL 0.65% SPRAY BTL (OCEAN) SCH ×2 (09:14→19:34)
[2016-10-16] MEDS: OLOPATADINE 0.1% OPHTH SOL 5ML(PATANOL) OU PRN (09:14)
[2016-10-16] MEDS: SENOKOT S TAB PO SCH ×2 (09:15→19:34)
[2016-10-16] MEDS: DOCUSATE SODIUM 100 MG CAP PO SCH ×2 (09:15→19:34)
[2016-10-16] MEDS: APIXABAN 2.5 MG TAB (ELIQUIS) PO SCH ×2 (09:15→19:34)
[2016-10-16] MEDS: POLYVINYL ALCOHOL OPHTH SOLN 15 ML(LIQUITEARS) OU SCH ×3 (09:15→19:34)
[2016-10-16] MEDS: DIGOXIN 0.125 MG TAB PO SCH (09:15)
[2016-10-16] MEDS: BENZONATATE 100 MG CAP PO SCH ×3 (09:15→19:34)
[2016-10-16] MEDS: LIDOCAINE 5% (LIDODERM) PATCH TD SCH (09:16)
[2016-10-16] MEDS: NEOSPORIN TOP OINT 15GM TOP SCH (09:16)
[2016-10-16] MEDS: guaiFENesin ER 600 MG TAB PO SCH ×2 (09:31→19:34)
[2016-10-16] MEDS: GABAPENTIN 100 MG CAP PO SCH (09:31)
[2016-10-16] MEDS: **NOTE PATIENT COMMENT** MISC XX SCH (19:35)
[2016-10-17] MEDS: SODIUM CHLORIDE NASAL 0.65% SPRAY BTL (OCEAN) SCH ×2 (06:23→19:27)
[2016-10-17] MEDS: BENZONATATE 100 MG CAP PO SCH ×3 (06:23→19:27)
[2016-10-17] MEDS: LIDOCAINE 5% (LIDODERM) PATCH TD SCH (06:23)
[2016-10-17] MEDS: SENOKOT S TAB PO SCH ×2 (06:23→19:27)
[2016-10-17] MEDS: APIXABAN 2.5 MG TAB (ELIQUIS) PO SCH ×2 (06:23→19:27)
[2016-10-17] MEDS: POLYVINYL ALCOHOL OPHTH SOLN 15 ML(LIQUITEARS) OU SCH ×3 (06:23→19:27)
[2016-10-17] MEDS: GABAPENTIN 100 MG CAP PO SCH (06:23)
[2016-10-17] MEDS: guaiFENesin ER 600 MG TAB PO SCH ×2 (06:23→19:27)
[2016-10-17] MEDS: DOCUSATE SODIUM 100 MG CAP PO SCH ×2 (06:23→19:27)
[2016-10-17] MEDS: diltiaZEM **CD** 180 MG CAP PO SCH (06:26)
[2016-10-17 07:00] VITALS: BP 142/56
[2016-10-17] MEDS: NEOSPORIN TOP OINT 15GM TOP SCH (08:10)
[2016-10-17] MEDS: LACTIC ACID 12% LOTION 225 GM BTL TOP SCH (08:10)
[2016-10-17 08:18] LABS: ALBUMIN 3.1 GM/DL (3.2-5.2); CALCIUM LEVEL 8.8 MG/DL (8.8-10.2); CREATININE FOR GFR 6.87 MG/DL (0.70-1.30); GLOMERULAR FILTRATION RATE 10.4 (>49); PHOSPHORUS LEVEL 5.1 MG/DL (2.5-4.9); POTASSIUM SERUM 4.6 MEQ/L (3.5-5.1)
[2016-10-17] MEDS: IPRATROPIUM 0.5MG/ALBUTEROL 2.5MG INH SOL UD 3ML (DUONEB)(J7620) NEB SCH ×2 (08:42→20:00)
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
[2016-10-17] MEDS: **NOTE PATIENT COMMENT** MISC XX SCH (19:27)
[2016-10-18] MEDS: IPRATROPIUM 0.5MG/ALBUTEROL 2.5MG INH SOL UD 3ML (DUONEB)(J7620) NEB SCH ×2 (07:42→20:02)
[2016-10-18 08:01] VITALS: BP 117/62
[2016-10-18] MEDS: LIDOCAINE 5% (LIDODERM) PATCH TD SCH (08:29)
[2016-10-18] MEDS: DOCUSATE SODIUM 100 MG CAP PO SCH ×2 (08:29→19:55)
[2016-10-18] MEDS: diltiaZEM **CD** 180 MG CAP PO SCH ×2 (08:29→10:34)
[2016-10-18] MEDS: APIXABAN 2.5 MG TAB (ELIQUIS) PO SCH ×2 (08:29→19:55)
[2016-10-18] MEDS: guaiFENesin ER 600 MG TAB PO SCH ×2 (08:29→19:55)
[2016-10-18] MEDS: GABAPENTIN 100 MG CAP PO SCH (08:29)
[2016-10-18] MEDS: SENOKOT S TAB PO SCH ×2 (08:29→19:55)
[2016-10-18] MEDS: SODIUM CHLORIDE NASAL 0.65% SPRAY BTL (OCEAN) SCH ×2 (08:30→19:55)
[2016-10-18] MEDS: NEOSPORIN TOP OINT 15GM TOP SCH (08:30)
[2016-10-18] MEDS: POLYVINYL ALCOHOL OPHTH SOLN 15 ML(LIQUITEARS) OU SCH ×3 (08:30→19:54)
[2016-10-18] MEDS: LACTIC ACID 12% LOTION 225 GM BTL TOP SCH (08:31)
[2016-10-18] MEDS: BENZONATATE 100 MG CAP PO SCH ×3 (08:43→19:55)
[2016-10-18 10:12] VITALS: BP 136/67
[2016-10-18 13:30] VITALS: BP 142/64
[2016-10-18] MEDS ORDERED: DIGOXIN 0.125 MG TAB PO ONE (14:00)
[2016-10-18 18:23] VITALS: BP 132/61
[2016-10-18] MEDS: **NOTE PATIENT COMMENT** MISC XX SCH (19:55)
--- NOTE | 2016-10-18 20:39 | IPN ---
DATE: 10/17/2016 SUBJECTIVE: Patient was seen and examined at the bedside today in the morning due to hemodialysis procedure. He was tolerating the hemodialysis procedure well. There were no active complaints. REVIEW OF SYSTEMS: Patient denies any fevers, chills, rigors, headaches, nausea, vomiting, chest pain, shortness of breath, pain in abdomen, constipation, or diarrhea. Rest of review of systems is negative. OBJECTIVE: VITAL SIGNS: Temperature is 98.8 degrees Fahrenheit, blood pressure is 142/56, pulse is 60, respiratory rate 18, saturating 94% on room air. INTAKE AND OUTPUT: There is no urine output recorded and there is no bed scale weight available. PHYSICAL EXAMINATION: GENERAL: Patient is awake, alert, and oriented times three, laying in bed, in no apparent distress, getting his hemodialysis done. HEAD and NECK: Extraocular muscles intact. Patient has a squint. Mucous membranes are moist. Neck is supple. There is no jugular venous distention (JVD). CARDIOVASCULAR: S1, S2, irregular heart rate. No murmur, rub, or gallop. RESPIRATORY: Chest is clear to auscultation bilaterally. Bilateral equal air entry. No rales or rhonchi. ABDOMEN: Soft. Positive bowel sounds. Nontender. No ascites. No hepatosplenomegaly. EXTREMITIES: Patient has a left below-knee amputation and patient is wearing a Waffle boot on the right foot and he has multiple small ulcerations on the dorsum of the toes which are covered with antibiotic at this time. ARTERIOVENOUS ACCESS: Patient has a left forearm arteriovenous (AV) fistula for hemodialysis, which is being used at this time and is working well. CENTRAL NERVOUS SYSTEM (TRAINING DESIGNER): No focal neurological deficit. Power is 5/5 in all extremities. LABORATORY REVIEW: CBC showed a hemoglobin of 9.6. BMP showed sodium 138, potassium 4.6 chloride 100, bicarbonate 26, BUN 30, creatinine 6.87, phosphorus is 5.1, albumin is 3.1. CURRENT MEDICATIONS: The patient's current medications were all reviewed by me. There is no change in the medications since the last time we dialyzed him. ASSESSMENT: 66-year-old male with past medical history of end-stage renal disease on hemodialysis. Currently he is awaiting fpc placement. Nephrology service following the patient for management of end-stage renal disease on dialysis. PLAN: 1. End-stage renal disease. Patient is being dialyzed today according to his Wednesday, , Wednesday schedule. Next hemodialysis would be on Wednesday. 2. Anemia in end-stage renal disease. Hemoglobin is fluctuating between 9 and 10. Continue current dose of Aranesp 300 mcg intravenous (IV) with hemodialysis. 3. Atrial fibrillation. Heart rate is controlled at this time. Continue current dose of Eliquis 2.5 mg by mouth twice a day, digoxin 0.125 mg by mouth on Wednesday, Wednesday, Wednesday, and diltiazem 180 mg by mouth daily.
[2016-10-18 21:40] VITALS: BP 130/60
[2016-10-19] MEDS: IPRATROPIUM 0.5MG/ALBUTEROL 2.5MG INH SOL UD 3ML (DUONEB)(J7620) NEB SCH ×2 (06:28→20:21)
[2016-10-19 07:00] VITALS: BP 139/63
[2016-10-19] MEDS: POLYVINYL ALCOHOL OPHTH SOLN 15 ML(LIQUITEARS) OU SCH ×3 (08:46→19:50)
[2016-10-19] MEDS: SODIUM CHLORIDE NASAL 0.65% SPRAY BTL (OCEAN) SCH ×2 (08:46→19:50)
[2016-10-19] MEDS: guaiFENesin ER 600 MG TAB PO SCH ×2 (08:47→19:49)
[2016-10-19] MEDS: DOCUSATE SODIUM 100 MG CAP PO SCH ×2 (08:47→19:49)
[2016-10-19] MEDS: BENZONATATE 100 MG CAP PO SCH ×3 (08:47→19:49)
[2016-10-19] MEDS: DIGOXIN 0.125 MG TAB PO SCH (08:47)
[2016-10-19] MEDS: diltiaZEM **CD** 180 MG CAP PO SCH (08:47)
[2016-10-19] MEDS: SENOKOT S TAB PO SCH ×2 (08:47→19:49)
[2016-10-19] MEDS: LIDOCAINE 5% (LIDODERM) PATCH TD SCH (08:47)
[2016-10-19] MEDS: GABAPENTIN 100 MG CAP PO SCH (08:47)
[2016-10-19] MEDS: APIXABAN 2.5 MG TAB (ELIQUIS) PO SCH ×2 (08:47→19:49)
[2016-10-19] MEDS: PERCOCET 5MG/325MG TAB PO PRN (08:48)
[2016-10-19] MEDS: NEOSPORIN TOP OINT 15GM TOP SCH (08:48)
[2016-10-19] MEDS: LACTIC ACID 12% LOTION 225 GM BTL TOP SCH (08:49)
[2016-10-19] MEDS: **NOTE PATIENT COMMENT** MISC XX SCH (19:51)
[2016-10-20] MEDS: LIDOCAINE 5% (LIDODERM) PATCH TD SCH (05:49)
[2016-10-20] MEDS: APIXABAN 2.5 MG TAB (ELIQUIS) PO SCH ×2 (05:49→19:38)
[2016-10-20] MEDS: BENZONATATE 100 MG CAP PO SCH ×3 (05:50→19:38)
[2016-10-20] MEDS: GABAPENTIN 100 MG CAP PO SCH (05:50)
[2016-10-20] MEDS: guaiFENesin ER 600 MG TAB PO SCH ×2 (05:50→19:38)
[2016-10-20] MEDS: SENOKOT S TAB PO SCH ×2 (05:51→19:38)
[2016-10-20] MEDS: DOCUSATE SODIUM 100 MG CAP PO SCH ×2 (05:51→19:38)
[2016-10-20] MEDS: SODIUM CHLORIDE NASAL 0.65% SPRAY BTL (OCEAN) SCH ×2 (05:51→19:39)
[2016-10-20] MEDS: diltiaZEM **CD** 180 MG CAP PO SCH (05:51)
[2016-10-20] MEDS: POLYVINYL ALCOHOL OPHTH SOLN 15 ML(LIQUITEARS) OU SCH ×3 (05:52→19:39)
[2016-10-20 07:00] VITALS: BP_SYST 126; BP_SYST 139; BP_DIAS 62; BP_DIAS 63
[2016-10-20 07:09] LABS: ALBUMIN 2.7 GM/DL (3.2-5.2); CREATININE FOR GFR 8.01 MG/DL (0.70-1.30); GLOMERULAR FILTRATION RATE 8.7 (>49); PHOSPHORUS LEVEL 4.1 MG/DL (2.5-4.9); POTASSIUM SERUM 4.1 MEQ/L (3.5-5.1)
[2016-10-20 07:39] LABS: MEAN CORPUSCULAR HEMOGLOBIN 24.1 pg (27.0-33.0); MEAN CORPUSCULAR HGB CONC 29.7 g/dl (32.0-36.5); MEAN CORPUSCULAR VOLUME 81.1 fl (80.0-96.0); RED CELL DISTRIBUTION WIDTH 17.3 % (11.5-14.5); WHITE BLOOD COUNT 6.6 K/mm3 (4.0-10.0)
[2016-10-20] MEDS: IPRATROPIUM 0.5MG/ALBUTEROL 2.5MG INH SOL UD 3ML (DUONEB)(J7620) NEB SCH ×2 (07:58→19:57)
[2016-10-20] MEDS: LACTIC ACID 12% LOTION 225 GM BTL TOP SCH (09:08)
[2016-10-20] MEDS: NEOSPORIN TOP OINT 15GM TOP SCH (09:08)
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
[2016-10-20] MEDS: **NOTE PATIENT COMMENT** MISC XX SCH (19:39)
--- NOTE | 2016-10-20 19:51 | IPN ---
DATE: 10/20/2016 SUBJECTIVE: The patient is seen and examined at the bedside. Denies new complaints. States a little soreness in his right heel. States he is doing well with his left leg amputation. His vital signs are stable. Labs are reviewed. No significant changes. White cell count and hemoglobin are within normal limits. LOWER EXTREMITY EXAMINATION: Right heel is examined. Wound measures now 3 x 2.5 cm x 0.4 cm. Wound base 100% fibrous. There is no necrotic tissue, no malodor noted. There is some superficial excoriation to the dorsal foot. No purulence or erythema noted. There is eschar noted to the second dorsal distal interphalangeal joint (DIPJ). No exposed bone or tendon present. ASSESSMENT: A 66-year-old male with right foot pressure wounds and peripheral vascular disease. He is status post left below-knee amputation. PLAN: The right heel wound was debrided, including subcutaneous tissue with a #15 blade in excisional fashion. Continue current wound care which is off-loading boot, Optifoam, antibiotic ointment to the heel wounds, as well as just antibiotic ointment to the toes. We will see the patient in office upon discharge. Once discharged, he should have followup with his vascular surgeon in [place] for evaluation of right lower extremity perfusion. Will follow.
--- NOTE | 2016-10-20 19:57 | IPN ---
DATE: 10/20/2016 SUBJECTIVE: Mr. Fernandez is seen this morning during dialysis. He is feeling better and denies any fever, chills, nausea, vomiting, dyspnea or abdominal pain. He reports a fair appetite. He continues to have problems with his right foot and reports that Dr. Dela Cruz debriding his heel ulcer. He remains in a protective dressing and splint. His left leg stump has healed after his qvizy-osf-pflw amputation. He currently remains on alternate level of care (ALC) level waiting for fdc bed. PHYSICAL EXAMINATION: VITAL SIGNS: Temperature 97.3 degrees Fahrenheit, heart rate 95 per minute and respiratory rate 18 per minute. Blood pressure 131/60 mmHg and oxygen saturation 95% on room air. HEENT: Head is atraumatic. Ears, nose and throat are unremarkable. Pupils are equal and reactive to light and sclerae are anicteric. NECK: Supple and there is no abnormal jugular venous distention (JVD). Trachea is midline. Thyroid is not enlarged and there are no abnormal cervical lymph nodes. HEART: Sounds are somewhat tachycardiac. LUNGS: Have good bilateral air entry. ABDOMEN: Soft and nontender and bowel sounds are present. EXTREMITIES: Have no cyanosis or clubbing. Left arm AV fistula is functioning. He has left rcnii-mmr-styy amputation and is wearing care trainer on his stump. Right foot is in the foot brace and a dressing. LABORATORY DATA: Today's labs show WBC count 6.6, hemoglobin 9.8 and hematocrit 33. Platelets 147. Sodium 137 and potassium 4.1. BUN 40 and creatinine 8.0. Glucose 116, calcium 9.0 and phosphorus 4.1. PROBLEMS: 1. End-stage renal disease. The patient is being dialyzed today. His regular outpatient dialysis days are Wednesday, Wednesday and Wednesday. However, he is currently receiving dialysis on Wednesday, and Wednesday while in the hospital. He is tolerating dialysis treatment very well. 2. Hypertension. Blood pressure is well controlled at present and we will continue with current medications. 3. Anemia. His anemia is stable and he is being managed with Aranesp. No other intervention is indicated at present. The patient also receives Venofer 100 mg intravenously with each dialysis to complete a total of 10 doses. 4. Right foot ischemic ulcers. The patient is being followed by podiatry. 5. Generalized weakness and deconditioning. The patient is receiving subacute rehabilitation. He is waiting for a fdc bed.
[2016-10-21 07:00] VITALS: BP 131/64
[2016-10-21] MEDS: IPRATROPIUM 0.5MG/ALBUTEROL 2.5MG INH SOL UD 3ML (DUONEB)(J7620) NEB SCH ×2 (07:50→20:22)
[2016-10-21] MEDS: APIXABAN 2.5 MG TAB (ELIQUIS) PO SCH ×2 (08:51→19:32)
[2016-10-21] MEDS: LIDOCAINE 5% (LIDODERM) PATCH TD SCH (08:51)
[2016-10-21] MEDS: LACTIC ACID 12% LOTION 225 GM BTL TOP SCH (08:51)
[2016-10-21] MEDS: SODIUM CHLORIDE NASAL 0.65% SPRAY BTL (OCEAN) SCH ×2 (08:51→19:32)
[2016-10-21] MEDS: NEOSPORIN TOP OINT 15GM TOP SCH (08:51)
[2016-10-21] MEDS: POLYVINYL ALCOHOL OPHTH SOLN 15 ML(LIQUITEARS) OU SCH ×3 (08:51→19:32)
[2016-10-21] MEDS: DOCUSATE SODIUM 100 MG CAP PO SCH ×2 (08:52→19:32)
[2016-10-21] MEDS: BENZONATATE 100 MG CAP PO SCH ×3 (08:52→19:32)
[2016-10-21] MEDS: guaiFENesin ER 600 MG TAB PO SCH ×2 (08:52→19:32)
[2016-10-21] MEDS: diltiaZEM **CD** 180 MG CAP PO SCH (08:52)
[2016-10-21] MEDS: GABAPENTIN 100 MG CAP PO SCH (08:52)
[2016-10-21] MEDS: SENOKOT S TAB PO SCH ×2 (08:52→19:32)
[2016-10-21] MEDS: DIGOXIN 0.125 MG TAB PO SCH (08:52)
[2016-10-21] MEDS: PERCOCET 5MG/325MG TAB PO PRN (08:53)
[2016-10-21] MEDS: **NOTE PATIENT COMMENT** MISC XX SCH (19:33)
[2016-10-22] MEDS: diltiaZEM **CD** 180 MG CAP PO SCH (06:20)
[2016-10-22] MEDS: GABAPENTIN 100 MG CAP PO SCH (06:20)
[2016-10-22] MEDS: guaiFENesin ER 600 MG TAB PO SCH ×2 (06:20→19:46)
[2016-10-22] MEDS: DOCUSATE SODIUM 100 MG CAP PO SCH ×2 (06:20→19:46)
[2016-10-22] MEDS: SENOKOT S TAB PO SCH ×2 (06:20→19:46)
[2016-10-22] MEDS: APIXABAN 2.5 MG TAB (ELIQUIS) PO SCH ×2 (06:20→19:45)
[2016-10-22] MEDS: BENZONATATE 100 MG CAP PO SCH ×3 (06:20→19:46)
[2016-10-22] MEDS: POLYVINYL ALCOHOL OPHTH SOLN 15 ML(LIQUITEARS) OU SCH ×3 (06:21→19:46)
[2016-10-22] MEDS: SODIUM CHLORIDE NASAL 0.65% SPRAY BTL (OCEAN) SCH ×2 (06:21→19:46)
[2016-10-22] MEDS: LIDOCAINE 5% (LIDODERM) PATCH TD SCH (06:21)
[2016-10-22 07:00] VITALS: BP 139/69
[2016-10-22] MEDS: IPRATROPIUM 0.5MG/ALBUTEROL 2.5MG INH SOL UD 3ML (DUONEB)(J7620) NEB SCH ×2 (07:56→19:33)
--- NOTE | 2016-10-22 14:38 | IPN ---
DATE: 10/22/2016 Mr. Fernandez is seen this morning during dialysis on his bedside. He is feeling about the same as last time. He denies any new complaints. His right foot remains in the brace with some ulcer on his toes and heel. The patient denies any chest pain, however, reports some dyspnea through the night. He denies any nausea or vomiting. He has no fever or chills. PHYSICAL EXAMINATION: Temperature 97.7 degrees Fahrenheit, heart rate 96 per minute and respiratory rate 16 per minute. Blood pressure 139/69 mmHg and oxygen saturation 99% on room air. His head is atraumatic. Pupils are equal and reactive to light and sclera is anicteric. Neck veins are mildly distended. There is no abnormal cervical lymph nodes. Trachea is midline. His neck is supple. Heart sounds are irregular in rhythm with systolic murmur grade 2/6. Lungs have slightly diminished breath sounds with few basilar rales. Abdomen is soft and nontender. Bowel sounds are normal. There is no palpable organomegaly. Extremities have no cyanosis or clubbing. The left arm AV fistula is patent. He has a left below knee amputation and stump has healed. Right foot is in the dressing and brace. The patient has not had any new labs since October 20. PROBLEMS: 1. End stage renal disease. The patient is being dialyzed today and he is tolerating his dialysis treatment very well. 2. Dyspnea. He is slightly volume overloaded. We will try to remove at least 3 liters of fluid as tolerated. He will be dialyzed again on Wednesday. The patient will need to follow fluid restriction of 1500 mL per day. 3. Anemia. His anemia has been stable and he receives a weekly dose of Aranesp during dialysis. No changes are indicated at this point. 4. Right foot ulcers. The patient is being followed by psychometrist and wound care is being done. There is no drainage and no signs of active infection. 5. Generalized weakness and deconditioning. The patient is waiting for senior living bed in [place]. At this point he remains on supportive care.
[2016-10-22] MEDS: NEOSPORIN TOP OINT 15GM TOP SCH (15:46)
[2016-10-22] MEDS: LACTIC ACID 12% LOTION 225 GM BTL TOP SCH (15:47)
[2016-10-22] MEDS: **NOTE PATIENT COMMENT** MISC XX SCH (19:46)
[2016-10-23] MEDS: IPRATROPIUM 0.5MG/ALBUTEROL 2.5MG INH SOL UD 3ML (DUONEB)(J7620) NEB SCH ×2 (07:49→20:00)
[2016-10-23 08:05] VITALS: BP 134/62
[2016-10-23] MEDS: NEOSPORIN TOP OINT 15GM TOP SCH (08:32)
[2016-10-23] MEDS: POLYVINYL ALCOHOL OPHTH SOLN 15 ML(LIQUITEARS) OU SCH ×3 (08:32→19:47)
[2016-10-23] MEDS: LIDOCAINE 5% (LIDODERM) PATCH TD SCH (08:32)
[2016-10-23] MEDS: DOCUSATE SODIUM 100 MG CAP PO SCH ×2 (08:33→19:47)
[2016-10-23] MEDS: SENOKOT S TAB PO SCH ×2 (08:33→19:47)
[2016-10-23] MEDS: guaiFENesin ER 600 MG TAB PO SCH ×2 (08:33→19:47)
[2016-10-23] MEDS: LACTIC ACID 12% LOTION 225 GM BTL TOP SCH (08:33)
[2016-10-23] MEDS: APIXABAN 2.5 MG TAB (ELIQUIS) PO SCH ×2 (08:33→19:47)
[2016-10-23] MEDS: GABAPENTIN 100 MG CAP PO SCH (08:33)
[2016-10-23] MEDS: BENZONATATE 100 MG CAP PO SCH ×3 (08:33→19:47)
[2016-10-23] MEDS: diltiaZEM **CD** 180 MG CAP PO SCH (08:33)
[2016-10-23] MEDS: SODIUM CHLORIDE NASAL 0.65% SPRAY BTL (OCEAN) SCH ×2 (08:33→19:47)
[2016-10-23] MEDS: DIGOXIN 0.125 MG TAB PO SCH (08:33)
[2016-10-23] MEDS: PERCOCET 5MG/325MG TAB PO PRN (08:34)
[2016-10-23] MEDS: **NOTE PATIENT COMMENT** MISC XX SCH (19:47)
[2016-10-24] MEDS: diltiaZEM **CD** 180 MG CAP PO SCH (06:26)
[2016-10-24] MEDS: GABAPENTIN 100 MG CAP PO SCH (06:26)
[2016-10-24] MEDS: SENOKOT S TAB PO SCH ×2 (06:26→19:35)
[2016-10-24] MEDS: APIXABAN 2.5 MG TAB (ELIQUIS) PO SCH ×2 (06:26→19:35)
[2016-10-24] MEDS: guaiFENesin ER 600 MG TAB PO SCH ×2 (06:26→19:35)
[2016-10-24] MEDS: LIDOCAINE 5% (LIDODERM) PATCH TD SCH (06:26)
[2016-10-24] MEDS: DOCUSATE SODIUM 100 MG CAP PO SCH ×2 (06:26→19:35)
[2016-10-24] MEDS: BENZONATATE 100 MG CAP PO SCH ×3 (06:26→19:35)
[2016-10-24] MEDS: SODIUM CHLORIDE NASAL 0.65% SPRAY BTL (OCEAN) SCH ×2 (06:27→19:35)
[2016-10-24] MEDS: POLYVINYL ALCOHOL OPHTH SOLN 15 ML(LIQUITEARS) OU SCH ×3 (06:27→19:35)
[2016-10-24] MEDS: ACETAMINOPHEN TAB 650MG DOSE (2X325MG) PO PRN (06:28)
[2016-10-24] MEDS: IPRATROPIUM 0.5MG/ALBUTEROL 2.5MG INH SOL UD 3ML (DUONEB)(J7620) NEB SCH ×2 (06:35→19:46)
[2016-10-24 07:00] VITALS: BP 128/60
[2016-10-24] MEDS: LACTIC ACID 12% LOTION 225 GM BTL TOP SCH (07:52)
[2016-10-24] MEDS: NEOSPORIN TOP OINT 15GM TOP SCH (07:52)
[2016-10-24] MEDS: **NOTE PATIENT COMMENT** MISC XX SCH (21:00)
[2016-10-25] MEDS: IPRATROPIUM 0.5MG/ALBUTEROL 2.5MG INH SOL UD 3ML (DUONEB)(J7620) NEB SCH (06:33)
[2016-10-25 07:00] VITALS: BP 124/71
[2016-10-25 08:36] VITALS: BP 110/60
[2016-10-25] MEDS: diltiaZEM **CD** 180 MG CAP PO SCH (08:37)
[2016-10-25] MEDS: guaiFENesin ER 600 MG TAB PO SCH ×2 (08:38→19:52)
[2016-10-25] MEDS: SODIUM CHLORIDE NASAL 0.65% SPRAY BTL (OCEAN) SCH ×2 (08:38→19:52)
[2016-10-25] MEDS: PERCOCET 5MG/325MG TAB PO PRN (08:38)
[2016-10-25] MEDS: SENOKOT S TAB PO SCH ×2 (08:38→19:52)
[2016-10-25] MEDS: LIDOCAINE 5% (LIDODERM) PATCH TD SCH (08:38)
[2016-10-25] MEDS: APIXABAN 2.5 MG TAB (ELIQUIS) PO SCH ×2 (08:38→19:52)
[2016-10-25] MEDS: POLYVINYL ALCOHOL OPHTH SOLN 15 ML(LIQUITEARS) OU SCH ×3 (08:38→19:52)
[2016-10-25] MEDS: NEOSPORIN TOP OINT 15GM TOP SCH (08:38)
[2016-10-25] MEDS: BENZONATATE 100 MG CAP PO SCH ×3 (08:38→19:52)
[2016-10-25] MEDS: GABAPENTIN 100 MG CAP PO SCH (08:38)
[2016-10-25] MEDS: DOCUSATE SODIUM 100 MG CAP PO SCH ×2 (08:38→19:52)
[2016-10-25] MEDS: LACTIC ACID 12% LOTION 225 GM BTL TOP SCH (08:39)
[2016-10-25 09:53] LABS: CALCIUM LEVEL 9.3 MG/DL (8.8-10.2); CREATININE FOR GFR 4.99 MG/DL (0.70-1.30); DIGOXIN LEVEL 0.7 NG/ML (0.5-2.0); POTASSIUM SERUM 4.3 MEQ/L (3.5-5.1)
[2016-10-25] MEDS ORDERED: DIGOXIN 0.25 MG TAB PO ONE (10:15)
--- NOTE | 2016-10-25 12:06 | IPN ---
DATE: 10/24/2016 Mr. Fernandez is seen during hemodialysis this morning on his bedside. He is feeling comfortable and denies any acute pain or distress. On physical exam, his temperature is 98.5 degrees Fahrenheit, heart rate 96 per minute and respiratory rate 18 per minute. Blood pressure 128/60 mmHg and oxygen saturation 92% on room air. His head is atraumatic. Ears, nose and throat are unremarkable. Neck is supple and without any jugular venous distention (JVD) or thyroid enlargement. Pupils are equal and reactive to light. Heart sounds are irregular rhythm. Lungs are clear to auscultation. Abdomen is soft and nontender. Extremities without any cyanosis or clubbing. Left forearm AV fistula is functioning. Right foot is in the brace and dressing. Ulcers on his heel and toes seem to be slowly healing. He has a left zrlqf-hjn-pryo amputation and stump is in the compliance monitor. PROBLEMS: 1. End-stage renal disease. Patient is tolerating his hemodialysis treatment very well. At present, his volume status seems to be well compensated. We are removing about 2.5 liters fluid today. 2. Anemia. His anemia has been stable, and patient continues with Aranesp during hemodialysis 300 mcg every week. His complete blood count (CBC) will be checked again next week. 3. Atrial fibrillation. His ventricular rate is moderately controlled. Patient remains on digoxin and Eliquis. He is also on diltiazem CD 180 mg daily. 4. Hypertension. Blood pressure is very well controlled at this point. No changes in antihypertensives are indicated. DISPOSITION: Patient is currently waiting for a long-term bed in [place]. [facility] [place]
--- NOTE | 2016-10-25 12:46 | ECGEPIP ---
Stationary ECG Study [facility] Test Date: 2016-10-25 Pat Name: CATHI SEBASTIAN Department: Room: [place] [address] Gender: M Care Management Specialist: : [id number] Requested By: JUSTICE Virgen Order Number: [id number] Reading MD: Yessica Car Measurements Intervals [place] Rate: 95 P: -87 [place]: 156 QRS: -55 QRSD: 128 T: 104 QT: 363 QTc: 458 Interpretive Statements SINUS RHYTHM WITH OCCASIONAL SUPRAVENTRICULAR PREMATURE COMPLEXES MARKED LEFT AXIS DEVIATION NON-SPECIFIC IVCD LEFT VENTRICULAR HYPERTROPHY AND ST-T CHANGE SMALL CHANGE SINCE 09/04/16 Electronically Signed On 10-25-2016 12:45:59 EST by Yessica Car
[2016-10-25] MEDS: **NOTE PATIENT COMMENT** MISC XX SCH (19:53)
[2016-10-26] MEDS: ACETAMINOPHEN TAB 650MG DOSE (2X325MG) PO PRN ×2 (00:48→19:59)
[2016-10-26 00:53] VITALS: BP 166/65
[2016-10-26] MEDS ORDERED: diltiaZEM **CD** 180 MG CAP PO ONE (01:15)
[2016-10-26 01:45] VITALS: BP 140/68
--- NOTE | 2016-10-26 04:25 | ECGEPIP ---
Stationary ECG Study [facility] Test Date: 2016-10-26 Pat Name: CATHI SEBASTIAN Department: Room: [place] [address] Gender: M [employer] Supervisor: : 1950 Requested By: YARA WILD Order Number: [id number] Reading MD: Jenni Calle Measurements Intervals [place] Rate: 107 P: [place]: 0 QRS: -54 QRSD: 122 T: 128 QT: 362 QTc: 485 Interpretive Statements ATRIAL FIBRILLATION WITH ABERRANT CONDUCTION OR VENTRICULAR PREMATURE COMPLEXES LEFT AXIS DEVIATION Left anterior fascicular block AND/OR OLD IWMI PULM DIS PATTERN ST T ABN , CONSIDER LATERAL ISCHEMIA/LVH AFIB NEW C/W 10/25/16 Electronically Signed On 10-26-2016 4:24:47 EST by Jenni Calle
[2016-10-26 06:57] LABS: MEAN CORPUSCULAR HEMOGLOBIN 23.5 pg (27.0-33.0); MEAN CORPUSCULAR HGB CONC 29.5 g/dl (32.0-36.5); MEAN CORPUSCULAR VOLUME 79.9 fl (80.0-96.0); RED CELL DISTRIBUTION WIDTH 18.3 % (11.5-14.5); WHITE BLOOD COUNT 6.5 K/mm3 (4.0-10.0)
[2016-10-26] MEDS: IPRATROPIUM 0.5MG/ALBUTEROL 2.5MG INH SOL UD 3ML (DUONEB)(J7620) NEB SCH ×2 (07:15→20:17)
[2016-10-26 07:23] LABS: CREATININE FOR GFR 6.5 MG/DL (0.70-1.30); DIGOXIN LEVEL 1.7 NG/ML (0.5-2.0); GLOMERULAR FILTRATION RATE 11.1 (>49); POTASSIUM SERUM 4.5 MEQ/L (3.5-5.1)
[2016-10-26 07:45] VITALS: BP 155/70
[2016-10-26] MEDS: SODIUM CHLORIDE NASAL 0.65% SPRAY BTL (OCEAN) SCH ×2 (08:51→19:58)
[2016-10-26] MEDS: LIDOCAINE 5% (LIDODERM) PATCH TD SCH (08:51)
[2016-10-26] MEDS: POLYVINYL ALCOHOL OPHTH SOLN 15 ML(LIQUITEARS) OU SCH ×3 (08:51→19:58)
[2016-10-26] MEDS: guaiFENesin ER 600 MG TAB PO SCH ×2 (08:52→19:58)
[2016-10-26] MEDS: DOCUSATE SODIUM 100 MG CAP PO SCH ×2 (08:52→19:58)
[2016-10-26] MEDS: DIGOXIN 0.125 MG TAB PO SCH (08:52)
[2016-10-26] MEDS: APIXABAN 2.5 MG TAB (ELIQUIS) PO SCH ×2 (08:52→19:58)
[2016-10-26] MEDS: SENOKOT S TAB PO SCH ×2 (08:52→19:59)
[2016-10-26] MEDS: GABAPENTIN 100 MG CAP PO SCH (08:52)
[2016-10-26] MEDS: BENZONATATE 100 MG CAP PO SCH ×3 (08:52→19:58)
[2016-10-26] MEDS: diltiaZEM **CD** 180 MG CAP PO SCH (08:52)
[2016-10-26] MEDS: NEOSPORIN TOP OINT 15GM TOP SCH (08:53)
[2016-10-26] MEDS: LACTIC ACID 12% LOTION 225 GM BTL TOP SCH (08:54)
[2016-10-26] MEDS: **NOTE PATIENT COMMENT** MISC XX SCH (21:00)
[2016-10-27] MEDS: DOCUSATE SODIUM 100 MG CAP PO SCH ×2 (05:34→19:56)
[2016-10-27] MEDS: BENZONATATE 100 MG CAP PO SCH ×3 (05:34→19:56)
[2016-10-27] MEDS: SENOKOT S TAB PO SCH ×2 (05:34→19:56)
[2016-10-27] MEDS: GABAPENTIN 100 MG CAP PO SCH (05:34)
[2016-10-27] MEDS: LIDOCAINE 5% (LIDODERM) PATCH TD SCH (05:34)
[2016-10-27] MEDS: guaiFENesin ER 600 MG TAB PO SCH ×2 (05:34→19:56)
[2016-10-27] MEDS: diltiaZEM **CD** 180 MG CAP PO SCH (05:35)
[2016-10-27] MEDS: SODIUM CHLORIDE NASAL 0.65% SPRAY BTL (OCEAN) SCH ×2 (05:35→19:55)
[2016-10-27] MEDS: POLYVINYL ALCOHOL OPHTH SOLN 15 ML(LIQUITEARS) OU SCH ×3 (05:35→19:55)
[2016-10-27] MEDS: APIXABAN 2.5 MG TAB (ELIQUIS) PO SCH ×2 (05:35→19:56)
[2016-10-27 07:00] VITALS: BP 134/90
[2016-10-27] MEDS: IPRATROPIUM 0.5MG/ALBUTEROL 2.5MG INH SOL UD 3ML (DUONEB)(J7620) NEB SCH (08:29)
[2016-10-27] MEDS: PERCOCET 5MG/325MG TAB PO PRN (11:53)
[2016-10-27] MEDS: LACTIC ACID 12% LOTION 225 GM BTL TOP SCH (17:19)
[2016-10-27] MEDS: NEOSPORIN TOP OINT 15GM TOP SCH (17:19)
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
[2016-10-27] MEDS: **NOTE PATIENT COMMENT** MISC XX SCH (19:56)
[2016-10-28 07:00] VITALS: BP 138/65
[2016-10-28] MEDS: BENZONATATE 100 MG CAP PO SCH ×3 (08:24→19:57)
[2016-10-28] MEDS: SENOKOT S TAB PO SCH ×2 (08:24→19:57)
[2016-10-28] MEDS: SODIUM CHLORIDE NASAL 0.65% SPRAY BTL (OCEAN) SCH ×2 (08:24→19:57)
[2016-10-28] MEDS: POLYVINYL ALCOHOL OPHTH SOLN 15 ML(LIQUITEARS) OU SCH ×3 (08:24→19:57)
[2016-10-28] MEDS: APIXABAN 2.5 MG TAB (ELIQUIS) PO SCH ×2 (08:24→19:57)
[2016-10-28] MEDS: GABAPENTIN 100 MG CAP PO SCH (08:24)
[2016-10-28] MEDS: guaiFENesin ER 600 MG TAB PO SCH ×2 (08:25→19:57)
[2016-10-28] MEDS: PERCOCET 5MG/325MG TAB PO PRN (08:25)
[2016-10-28] MEDS: DOCUSATE SODIUM 100 MG CAP PO SCH ×2 (08:25→19:57)
[2016-10-28] MEDS: DIGOXIN 0.125 MG TAB PO SCH (08:25)
[2016-10-28] MEDS: diltiaZEM **CD** 180 MG CAP PO SCH (08:25)
[2016-10-28] MEDS: NEOSPORIN TOP OINT 15GM TOP SCH (08:26)
[2016-10-28] MEDS: LACTIC ACID 12% LOTION 225 GM BTL TOP SCH (08:26)
[2016-10-28] MEDS: LIDOCAINE 5% (LIDODERM) PATCH TD SCH (08:26)
[2016-10-28] MEDS: OLOPATADINE 0.1% OPHTH SOL 5ML(PATANOL) OU PRN (08:26)
--- NOTE | 2016-10-28 14:31 | IPN ---
DATE: 10/28/2016 Mr. Fernandez is seen this morning during dialysis on his bedside. He is feeling well and denies any complaints. His right foot remains in the brace and dressing. He denies any dyspnea, chest pain, nausea, vomiting, fever or chills. On physical exam, temperature 97.4 degrees Fahrenheit, heart rate 87 per minute and respiratory rate 14 per minute. Blood pressure 134/90 mmHg and oxygen saturation 95% on room air. His head is atraumatic. Neck is supple and without jugular venous distention (JVD) or thyroid enlargement. Pupils are equal and reactive to light and sclera is anicteric. Ears, nose and throat are unremarkable. He is edentulous. Heart sounds are regular and lungs clear to auscultation. Abdomen soft and nontender and without palpable organomegaly. Bowel sounds are normal. Extremities have no cyanosis or clubbing. Left arm AV fistula is functioning. His left gqtyi-wlq-xbis amputation and stump is healed. Right foot is in the brace and dressing. He has small ulcers on the toes without any drainage or bleeding. There are no new labs done today. Yesterday's labs were reviewed. His sodium was 138 and potassium 4.5. BUN 31 and creatinine 6.5. Digoxin level was 1.7. WBC count 6.5 and hemoglobin 10.1. PROBLEMS: 1. End-stage renal disease. The patient is being dialyzed today and he is tolerating his dialysis very well. We are removing about 2.5-3 liters of fluid as tolerated. 2. Anemia. His anemia is optimally corrected. He remains on Aranesp once a week which will be continued. He has also received intravenous iron. 3. Hypertension. Blood pressure is very well controlled on current antihypertensives. 4. Disposition. The patient is waiting for a half-way bed.
[2016-10-28] MEDS: **NOTE PATIENT COMMENT** MISC XX SCH (19:57)
[2016-10-29] MEDS: guaiFENesin ER 600 MG TAB PO SCH ×2 (06:15→19:48)
[2016-10-29] MEDS: APIXABAN 2.5 MG TAB (ELIQUIS) PO SCH ×2 (06:15→19:48)
[2016-10-29] MEDS: LIDOCAINE 5% (LIDODERM) PATCH TD SCH (06:15)
[2016-10-29] MEDS: GABAPENTIN 100 MG CAP PO SCH (06:15)
[2016-10-29] MEDS: BENZONATATE 100 MG CAP PO SCH ×3 (06:15→19:48)
[2016-10-29] MEDS: DOCUSATE SODIUM 100 MG CAP PO SCH ×2 (06:16→19:48)
[2016-10-29] MEDS: diltiaZEM **CD** 180 MG CAP PO SCH (06:16)
[2016-10-29] MEDS: SENOKOT S TAB PO SCH ×2 (06:16→19:48)
[2016-10-29] MEDS: POLYVINYL ALCOHOL OPHTH SOLN 15 ML(LIQUITEARS) OU SCH ×3 (06:16→19:48)
[2016-10-29] MEDS: SODIUM CHLORIDE NASAL 0.65% SPRAY BTL (OCEAN) SCH ×2 (06:16→19:48)
[2016-10-29 08:00] VITALS: BP 146/64
[2016-10-29] MEDS: NEOSPORIN TOP OINT 15GM TOP SCH (08:29)
[2016-10-29] MEDS: LACTIC ACID 12% LOTION 225 GM BTL TOP SCH (08:29)
[2016-10-29] MEDS: PERCOCET 5MG/325MG TAB PO PRN (10:00)
[2016-10-29 10:04] LABS: MEAN CORPUSCULAR HEMOGLOBIN 24.5 pg (27.0-33.0); MEAN CORPUSCULAR HGB CONC 30.9 g/dl (32.0-36.5); MEAN CORPUSCULAR VOLUME 79.3 fl (80.0-96.0); RED CELL DISTRIBUTION WIDTH 16.7 % (11.5-14.5); WHITE BLOOD COUNT 5.8 K/mm3 (4.0-10.0)
[2016-10-29 10:18] LABS: ALBUMIN 2.8 GM/DL (3.2-5.2); CALCIUM LEVEL 8.8 MG/DL (8.8-10.2); CREATININE FOR GFR 7.05 MG/DL (0.70-1.30); GLOMERULAR FILTRATION RATE 10.1 (>49); PHOSPHORUS LEVEL 3.8 MG/DL (2.5-4.9); POTASSIUM SERUM 4.6 MEQ/L (3.5-5.1)
[2016-10-29] MEDS: **NOTE PATIENT COMMENT** MISC XX SCH (19:48)
[2016-10-30 08:00] VITALS: BP 130/61
[2016-10-30] MEDS: POLYVINYL ALCOHOL OPHTH SOLN 15 ML(LIQUITEARS) OU SCH ×3 (09:20→19:49)
[2016-10-30] MEDS: LIDOCAINE 5% (LIDODERM) PATCH TD SCH (09:20)
[2016-10-30] MEDS: SODIUM CHLORIDE NASAL 0.65% SPRAY BTL (OCEAN) SCH ×2 (09:21→19:49)
[2016-10-30] MEDS: NEOSPORIN TOP OINT 15GM TOP SCH (09:21)
[2016-10-30] MEDS: APIXABAN 2.5 MG TAB (ELIQUIS) PO SCH ×2 (09:22→19:48)
[2016-10-30] MEDS: diltiaZEM **CD** 180 MG CAP PO SCH (09:22)
[2016-10-30] MEDS: BENZONATATE 100 MG CAP PO SCH ×3 (09:22→19:48)
[2016-10-30] MEDS: GABAPENTIN 100 MG CAP PO SCH (09:22)
[2016-10-30] MEDS: guaiFENesin ER 600 MG TAB PO SCH ×2 (09:22→19:48)
[2016-10-30] MEDS: DOCUSATE SODIUM 100 MG CAP PO SCH ×2 (09:22→19:48)
[2016-10-30] MEDS: SENOKOT S TAB PO SCH ×2 (09:23→19:48)
[2016-10-30] MEDS: DIGOXIN 0.125 MG TAB PO SCH (09:23)
[2016-10-30] MEDS: LACTIC ACID 12% LOTION 225 GM BTL TOP SCH (09:24)
--- NOTE | 2016-10-30 19:47 | IPN ---
DATE: 10/29/2016 Mr. Fernandez is seen this morning during dialysis. He is feeling well and denies any complaints. He has no dyspnea, chest pain, nausea or vomiting. PHYSICAL EXAMINATION: Temperature 97.5 degrees Fahrenheit, heart rate 85 per minute and respiratory rate 20 per minute. Blood pressure 146/64 mmHg and oxygen saturation 93% on room air. His head is atraumatic. Ears, nose and throat are unremarkable. He is edentulous and without any oral thrush or ulcers. Neck is supple and without jugular venous distention (JVD) or thyroid enlargement. Heart sounds are regular and lungs have good bilateral air entry. Abdomen: Soft and nontender and bowel sounds are normal. Extremities have no cyanosis or clubbing. Left arm AV fistula is patent. He has left tguoy-cbk-vwly amputation. Right foot is with an ulcer on the heel and is covered with dressing. Small ulcers on his toes are also noted without any signs of infection. Today's labs show WBC count 5.8, hemoglobin 10.5 and hematocrit 33.9. Platelets 140. Sodium 136 and potassium 4.6. BUN 33 and creatinine 7.05. PROBLEMS: 1. End-stage renal disease. Mr. Fernandez is tolerating his dialysis treatment very well. His volume status is well compensated and electrolytes are within normal range. He will be dialyzed for 4 hours today with 3 liters of fluid removal. 2. Hypertension. Blood pressure control remains optimal. No changes in antihypertensives are indicated. 3. Anemia. His anemia is now optimally corrected and we will continue with Aranesp once a week. Since his left leg amputation, he has received IV iron and we will complete 10 doses of IV iron. 4. Disposition: From renal standpoint, the patient is stable, and he is currently waiting for a long-term bed.
[2016-10-30] MEDS: **NOTE PATIENT COMMENT** MISC XX SCH (19:49)
[2016-10-30] MEDS: ACETAMINOPHEN TAB 650MG DOSE (2X325MG) PO PRN (20:29)
[2016-10-31] MEDS: POLYVINYL ALCOHOL OPHTH SOLN 15 ML(LIQUITEARS) OU SCH ×3 (06:18→19:50)
[2016-10-31] MEDS: GABAPENTIN 100 MG CAP PO SCH (06:18)
[2016-10-31] MEDS: BENZONATATE 100 MG CAP PO SCH ×3 (06:18→19:50)
[2016-10-31] MEDS: LIDOCAINE 5% (LIDODERM) PATCH TD SCH (06:18)
[2016-10-31] MEDS: SENOKOT S TAB PO SCH ×2 (06:18→19:50)
[2016-10-31] MEDS: DOCUSATE SODIUM 100 MG CAP PO SCH ×2 (06:18→19:50)
[2016-10-31] MEDS: guaiFENesin ER 600 MG TAB PO SCH ×2 (06:18→19:50)
[2016-10-31] MEDS: SODIUM CHLORIDE NASAL 0.65% SPRAY BTL (OCEAN) SCH ×2 (06:18→19:50)
[2016-10-31] MEDS: APIXABAN 2.5 MG TAB (ELIQUIS) PO SCH ×2 (06:19→19:50)
[2016-10-31] MEDS: diltiaZEM **CD** 180 MG CAP PO SCH (06:19)
--- NOTE | 2016-10-31 06:50 | IPN ---
DATE OF SERVICE: 10/29/2016 Patient seen and examined at bedside. Denies overnight complaints. States some bleeding from his wound over the last day. Vital signs stable. Hemoglobin 10.5, hematocrit 33.9. White blood cell count 5.8. Lower extremity examination: The right heel wound was examined. Some slightly improved granulation tissue is noted. The majority of the wound base is fibrotic. Measurement slightly improved measuring 2.5 x 2 x 0.5 cm. No signs of significant necrosis. No purulence noted. No surrounding erythema. No malodor. The second toe eschar is stable. Again no malodor, no loosening. ASSESSMENT: 66-year-old male status post left below knee amputation with pressure ulcerations to his right heel, peripheral vascular disease. PLAN: Wound was debrided at bedside, this including subcutaneous tissue in excisional manner. Continue current wound care dressings. Change dressing with dry gauze twice daily as needed sanguinous drainage. Continue off-loading heel boot. Continue antibiotic ointment to second toe. Okay to ambulate. Plan vascular consultation upon placement. At this point, this is not urgent as the wound is remaining stable and this can wait until he is in a skilled nursing facility which is able to transport him. His nails were debrided at bedside.
[2016-10-31 07:00] VITALS: BP 138/78
[2016-10-31] MEDS: LACTIC ACID 12% LOTION 225 GM BTL TOP SCH (09:00)
[2016-10-31] MEDS: NEOSPORIN TOP OINT 15GM TOP SCH (10:05)
[2016-10-31] MEDS: **NOTE PATIENT COMMENT** MISC XX SCH (19:50)
[2016-11-01 07:00] VITALS: BP 113/55
[2016-11-01] MEDS: diltiaZEM **CD** 180 MG CAP PO SCH (08:52)
[2016-11-01] MEDS: guaiFENesin ER 600 MG TAB PO SCH ×2 (08:52→19:57)
[2016-11-01] MEDS: GABAPENTIN 100 MG CAP PO SCH (08:52)
[2016-11-01] MEDS: APIXABAN 2.5 MG TAB (ELIQUIS) PO SCH ×2 (08:52→19:57)
[2016-11-01] MEDS: SENOKOT S TAB PO SCH ×2 (08:52→19:57)
[2016-11-01] MEDS: DOCUSATE SODIUM 100 MG CAP PO SCH ×2 (08:52→19:57)
[2016-11-01] MEDS: LIDOCAINE 5% (LIDODERM) PATCH TD SCH (08:53)
[2016-11-01] MEDS: SODIUM CHLORIDE NASAL 0.65% SPRAY BTL (OCEAN) SCH ×2 (08:53→19:56)
[2016-11-01] MEDS: BENZONATATE 100 MG CAP PO SCH ×3 (08:53→19:57)
[2016-11-01] MEDS: POLYVINYL ALCOHOL OPHTH SOLN 15 ML(LIQUITEARS) OU SCH ×3 (08:54→19:56)
[2016-11-01] MEDS: NEOSPORIN TOP OINT 15GM TOP SCH (08:54)
[2016-11-01] MEDS: LACTIC ACID 12% LOTION 225 GM BTL TOP SCH (09:00)
[2016-11-01] MEDS: **NOTE PATIENT COMMENT** MISC XX SCH (19:57)
[2016-11-02 08:00] VITALS: BP 152/72
[2016-11-02] MEDS: SENOKOT S TAB PO SCH ×2 (08:23→20:05)
[2016-11-02] MEDS: GABAPENTIN 100 MG CAP PO SCH (08:23)
[2016-11-02] MEDS: DIGOXIN 0.125 MG TAB PO SCH (08:23)
[2016-11-02] MEDS: diltiaZEM **CD** 180 MG CAP PO SCH (08:23)
[2016-11-02] MEDS: DOCUSATE SODIUM 100 MG CAP PO SCH ×2 (08:23→20:05)
[2016-11-02] MEDS: guaiFENesin ER 600 MG TAB PO SCH ×2 (08:23→20:05)
[2016-11-02] MEDS: APIXABAN 2.5 MG TAB (ELIQUIS) PO SCH ×2 (08:24→20:05)
[2016-11-02] MEDS: BENZONATATE 100 MG CAP PO SCH ×3 (08:24→20:05)
[2016-11-02] MEDS: NEOSPORIN TOP OINT 15GM TOP SCH (08:24)
[2016-11-02] MEDS: LIDOCAINE 5% (LIDODERM) PATCH TD SCH (08:25)
[2016-11-02] MEDS: SODIUM CHLORIDE NASAL 0.65% SPRAY BTL (OCEAN) SCH ×2 (08:26→20:06)
[2016-11-02] MEDS: POLYVINYL ALCOHOL OPHTH SOLN 15 ML(LIQUITEARS) OU SCH ×3 (08:27→20:06)
[2016-11-02] MEDS: LACTIC ACID 12% LOTION 225 GM BTL TOP SCH (08:41)
[2016-11-02] MEDS: **NOTE PATIENT COMMENT** MISC XX SCH (20:06)
[2016-11-02] MEDS: ACETAMINOPHEN TAB 650MG DOSE (2X325MG) PO PRN (20:06)
[2016-11-03] MEDS: DOCUSATE SODIUM 100 MG CAP PO SCH ×2 (06:03→19:41)
[2016-11-03] MEDS: LIDOCAINE 5% (LIDODERM) PATCH TD SCH (06:03)
[2016-11-03] MEDS: SODIUM CHLORIDE NASAL 0.65% SPRAY BTL (OCEAN) SCH ×2 (06:04→19:41)
[2016-11-03] MEDS: BENZONATATE 100 MG CAP PO SCH ×3 (06:04→19:41)
[2016-11-03] MEDS: SENOKOT S TAB PO SCH ×2 (06:04→19:41)
[2016-11-03] MEDS: diltiaZEM **CD** 180 MG CAP PO SCH (06:04)
[2016-11-03] MEDS: GABAPENTIN 100 MG CAP PO SCH (06:04)
[2016-11-03] MEDS: APIXABAN 2.5 MG TAB (ELIQUIS) PO SCH ×2 (06:04→19:41)
[2016-11-03] MEDS: guaiFENesin ER 600 MG TAB PO SCH ×2 (06:04→19:41)
[2016-11-03] MEDS: POLYVINYL ALCOHOL OPHTH SOLN 15 ML(LIQUITEARS) OU SCH ×3 (06:05→19:41)
[2016-11-03 07:00] VITALS: BP 124/58
[2016-11-03] MEDS: LACTIC ACID 12% LOTION 225 GM BTL TOP SCH (08:49)
[2016-11-03] MEDS: NEOSPORIN TOP OINT 15GM TOP SCH (08:49)
[2016-11-03 13:46] LABS: MEAN CORPUSCULAR HEMOGLOBIN 22.8 pg (27.0-33.0); MEAN CORPUSCULAR HGB CONC 28.4 g/dl (32.0-36.5); MEAN CORPUSCULAR VOLUME 80.5 fl (80.0-96.0); WHITE BLOOD COUNT 6.7 K/mm3 (4.0-10.0)
[2016-11-03 13:49] LABS: CALCIUM LEVEL 8.9 MG/DL (8.8-10.2); CREATININE FOR GFR 9.5 MG/DL (0.70-1.30); GLOMERULAR FILTRATION RATE 7.1 (>49); POTASSIUM SERUM 4.6 MEQ/L (3.5-5.1)
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
--- NOTE | 2016-11-03 19:44 | IPN ---
DATE: 10/31/2016 SUBJECTIVE: The patient was seen and examined at the bedside today in the morning during hemodialysis procedure. He was tolerating the hemodialysis procedure well. There were no active complaints. REVIEW OF SYSTEMS: The patient denies any fever, chills, rigors, headache, nausea, vomiting, chest pain, shortness of breath, pain in abdomen, constipation or diarrhea. The rest of the review of systems is negative. OBJECTIVE: VITAL SIGNS: Temperature is 98.9 degrees Fahrenheit, blood pressure is 138/78, pulses is 90, respiratory rate of 18, saturating 100% on room air. INTAKE/OUTPUT: There is no urine output recorded and there is no bed scale weight available. PHYSICAL EXAMINATION: GENERAL: The patient is awake, alert, oriented times three, laying in the bed getting hemodialysis done. No active complaints at this time. HEAD AND NECK EXAM: Extraocular muscles intact. Pupils equally round and reactive to light. The patient has a squint. Neck is supple. There is no jugular venous distention (JVD). CARDIOVASCULAR: S1, S2. Irregular heart rate. No murmur, rub or gallop. RESPIRATORY: Chest is clear to auscultation bilaterally. Bilateral equal air entry. No rales or rhonchi. ABDOMEN: Abdomen is soft. Positive bowel sounds. Nontender. No ascites. No hepatosplenomegaly. EXTREMITIES: The patient has a left below-knee amputation, and the patient has an ulceration on the right foot toe as well, and he has antibiotics applied to the ulcerations at this time. AV ACCESS: The patient has a left forearm AV fistula, which is being used for dialysis at this time. CENTRAL NERVOUS SYSTEM: No focal neurological deficit. Power is 5/5 in all extremities. LAB REVIEW: CBC showed a WBC of 5.8, hemoglobin 10.5, platelets 140. BMP done 2 days ago showed sodium 136, potassium 4.6, chloride 97, bicarbonate 28, BUN 33, creatinine 7.05. CURRENT MEDICATIONS: The patient's medications were all reviewed by me. There is no change in the medications since the last time the patient was seen by nephrology service. ASSESSMENT: A 66-year-old male with past medical history of end-stage renal disease on hemodialysis, currently he is awaiting custodial placement. Nephrology service is following the patient for management of end-stage renal disease and dialysis. PLAN: 1. End-stage renal disease. The patient gets dialyzed according to Wednesday, , Wednesday schedule. He is being dialyzed today according to his schedule. We shall try to do an ultrafiltration of 3 liters as tolerated by his blood pressure today. 2. Anemia in end-stage renal disease. His hemoglobin is well within target; it is above 10 today. Continue current dose of Aranesp 300 mcg IV with hemodialysis. 3. Right foot ulceration. We appreciate podiatry's recommendation. I see that the podiatry service wants the patient to be seen by vascular surgery. The patient will be referred to vascular surgery group, Dr. Milan, at [place], once he is placed at custodial. As per podiatry service, there is no urgent need for the patient to be transferred at this time for vascular surgery consultation, so the patient will be sent to [place] once he is at the custodial. 4. Disposition. The patient can be discharged from nephrology standpoint whenever the bed is available at the custodial. Plan of care was discussed with the medical team. MARIA ALEJANDRA
[2016-11-03] MEDS: **NOTE PATIENT COMMENT** MISC XX SCH (20:08)
[2016-11-04] MEDS: LIDOCAINE 5% (LIDODERM) PATCH TD SCH (05:56)
[2016-11-04] MEDS: GABAPENTIN 100 MG CAP PO SCH (05:57)
[2016-11-04] MEDS: diltiaZEM **CD** 180 MG CAP PO SCH (05:57)
[2016-11-04] MEDS: SENOKOT S TAB PO SCH ×2 (05:57→20:09)
[2016-11-04] MEDS: DOCUSATE SODIUM 100 MG CAP PO SCH ×2 (05:57→20:09)
[2016-11-04] MEDS: BENZONATATE 100 MG CAP PO SCH ×3 (05:57→20:09)
[2016-11-04] MEDS: DIGOXIN 0.125 MG TAB PO SCH (05:57)
[2016-11-04] MEDS: APIXABAN 2.5 MG TAB (ELIQUIS) PO SCH ×2 (05:58→20:09)
[2016-11-04] MEDS: POLYVINYL ALCOHOL OPHTH SOLN 15 ML(LIQUITEARS) OU SCH ×3 (05:58→20:09)
[2016-11-04] MEDS: guaiFENesin ER 600 MG TAB PO SCH ×2 (05:58→20:09)
[2016-11-04] MEDS: SODIUM CHLORIDE NASAL 0.65% SPRAY BTL (OCEAN) SCH ×2 (05:58→20:09)
[2016-11-04 07:00] VITALS: BP 128/59
[2016-11-04] MEDS: PERCOCET 5MG/325MG TAB PO PRN (08:09)
[2016-11-04] MEDS: LACTIC ACID 12% LOTION 225 GM BTL TOP SCH (08:09)
[2016-11-04] MEDS: NEOSPORIN TOP OINT 15GM TOP SCH (08:09)
[2016-11-04] MEDS: **NOTE PATIENT COMMENT** MISC XX SCH (20:09)
[2016-11-05 08:00] VITALS: BP 129/59
[2016-11-05] MEDS: APIXABAN 2.5 MG TAB (ELIQUIS) PO SCH ×2 (09:01→20:09)
[2016-11-05] MEDS: LIDOCAINE 5% (LIDODERM) PATCH TD SCH (09:02)
[2016-11-05] MEDS: SENOKOT S TAB PO SCH ×2 (09:02→20:09)
[2016-11-05] MEDS: GABAPENTIN 100 MG CAP PO SCH (09:02)
[2016-11-05] MEDS: guaiFENesin ER 600 MG TAB PO SCH ×2 (09:02→20:09)
[2016-11-05] MEDS: diltiaZEM **CD** 180 MG CAP PO SCH (09:02)
[2016-11-05] MEDS: SODIUM CHLORIDE NASAL 0.65% SPRAY BTL (OCEAN) SCH ×2 (09:02→20:09)
[2016-11-05] MEDS: POLYVINYL ALCOHOL OPHTH SOLN 15 ML(LIQUITEARS) OU SCH ×3 (09:02→20:09)
[2016-11-05] MEDS: DOCUSATE SODIUM 100 MG CAP PO SCH ×2 (09:02→20:09)
[2016-11-05] MEDS: NEOSPORIN TOP OINT 15GM TOP SCH (09:02)
[2016-11-05] MEDS: LACTIC ACID 12% LOTION 225 GM BTL TOP SCH (09:03)
[2016-11-05] MEDS: BENZONATATE 100 MG CAP PO SCH ×3 (09:09→20:09)
--- NOTE | 2016-11-05 14:41 | IPN ---
DATE: 11/04/2016 SUBJECTIVE: Patient was seen and examined at the bedside today in the morning getting hemodialysis. He was tolerating the hemodialysis procedure well. REVIEW OF SYSTEMS: Patient denies any fever, chills, rigors, headache, nausea, vomiting, chest pain, shortness of breath, pain in abdomen or constipation. All of the review of systems is negative. OBJECTIVE: VITAL SIGNS: Temperature 98.6 degrees Fahrenheit, blood pressure 128/59, pulse 57, respiratory rate 18, saturating at 93% on room air. INTAKE/OUTPUT: There is no urine output recorded. There is no bed scale weight available at this time. PHYSICAL EXAMINATION: GENERAL: Patient is awake, alert, oriented times three, laying in bed getting hemodialysis. No apparent distress. HEAD and NECK: Extraocular muscles intact. Pupils equally round and reactive to light. Patient has a squint of the eyes. Neck is supple. There is no jugular venous distention (JVD). CARDIOVASCULAR: S1, S2, irregular heart rate. No murmur, rub, or gallop. RESPIRATORY: Chest is clear to auscultation bilaterally. Bilateral equal air entry. No rales or rhonchi. ABDOMEN: Soft, positive bowel sounds, nontender. No ascites. No organomegaly. EXTREMITIES: Patient has a left below knee amputation and patient has decreased pulses on the right foot and he has ulcerations of the toes on the right foot and right foot is currently in a brace. ARTERIOVENOUS (AV) ACCESS: Patient has a left forearm AV fistula which is being used for dialysis. CENTRAL NERVOUS SYSTEM (COMPUTER GRAPHIC ARTIST): No focal neurological deficit. Power is 5/5 in all extremities. LABORATORY REVIEW: CBC showed a hemoglobin of 10.1. BMP showed sodium 139, potassium 4.6, chloride 101, bicarbonate 26, BUN 50, creatinine 9.5, calcium 8.9. CURRENT MEDICATIONS: Patient's current medications were all reviewed by me. There is no change in the medications at this time except the addition of MiraLax. ASSESSMENT: 66-year-old male with past medical history of end-stage renal disease on hemodialysis, awaiting senior care placement, nephrology service following the patient for management of end-stage renal disease and dialysis. PLAN: 1. End-stage renal disease. Patient is getting dialyzed according to his regular schedule today and we shall try to do an ultrafiltration between 3 to 3.5 kg as tolerated by his blood pressure. 2. Anemia in end-stage renal disease. Patient's hemoglobin is within target. His hemoglobin is 10.1. Continue current dose of Aranesp. 3. Right foot ulceration and peripheral vascular disease. I have requested a vascular surgery referral with Dr. Milan at [place]. Patient to followup with vascular surgery once the appointment is available.
[2016-11-05] MEDS: ACETAMINOPHEN TAB 650MG DOSE (2X325MG) PO PRN (20:10)
[2016-11-05] MEDS: CARBAMIDE PEROXIDE 6.5% OTIC SOLN 15ML AU SCH (20:48)
[2016-11-05] MEDS: **NOTE PATIENT COMMENT** MISC XX SCH (20:48)
[2016-11-05 23:34] VITALS: BP 123/63
--- NOTE | 2016-11-06 00:56 | REP ---
Clinical: Chest pain. Comparison: 09/17/2016. Findings: Stable cardiomegaly. Increased interstitial markings and prominent pulmonary vasculature suggests pulmonary venous congestion. No obvious effusion or pneumothorax. Skeletal structures intact. Impression: Cardiomegaly and possible pulmonary venous congestion. Signed by Kumar Villafuerte MD 11/06/2016 12:47 A
[2016-11-06] MEDS: GABAPENTIN 100 MG CAP PO SCH (05:39)
[2016-11-06] MEDS: LIDOCAINE 5% (LIDODERM) PATCH TD SCH (05:39)
[2016-11-06] MEDS: DIGOXIN 0.125 MG TAB PO SCH (05:40)
[2016-11-06] MEDS: APIXABAN 2.5 MG TAB (ELIQUIS) PO SCH ×2 (05:40→19:43)
[2016-11-06] MEDS: BENZONATATE 100 MG CAP PO SCH ×3 (05:40→19:43)
[2016-11-06] MEDS: SENOKOT S TAB PO SCH ×2 (05:40→19:43)
[2016-11-06] MEDS: diltiaZEM **CD** 180 MG CAP PO SCH (05:41)
[2016-11-06] MEDS: CARBAMIDE PEROXIDE 6.5% OTIC SOLN 15ML AU SCH ×2 (05:41→19:44)
[2016-11-06] MEDS: DOCUSATE SODIUM 100 MG CAP PO SCH ×2 (05:41→19:43)
[2016-11-06] MEDS: SODIUM CHLORIDE NASAL 0.65% SPRAY BTL (OCEAN) SCH ×2 (05:42→19:44)
[2016-11-06] MEDS: POLYVINYL ALCOHOL OPHTH SOLN 15 ML(LIQUITEARS) OU SCH ×3 (05:42→19:42)
[2016-11-06] MEDS: guaiFENesin ER 600 MG TAB PO SCH ×2 (05:44→19:43)
[2016-11-06 08:00] VITALS: BP 144/64
[2016-11-06] MEDS: PERCOCET 5MG/325MG TAB PO PRN ×2 (11:37→19:43)
--- NOTE | 2016-11-06 12:48 | IPN ---
DATE: 11/05/2016 The patient is seen and examined at bedside. He denies overnight complaints. He states a little soreness in his foot. Vital signs are stable. LABORATORY DATA: White cell count 6.7, hemoglobin 10.1. Lower extremity examination: Right heel wound is stable. Debridement measures 3 x 2.5 x 0.3 cm, fibrogranular base. No signs of purulence or necrosis. The third toe on the right foot is examined. There seems to be worsening of the gangrenous changes over the interphalangeal joint. ASSESSMENT: 66-year-old male status post left below the knee amputation with peripheral vascular disease, worsening of vascular ulceration to his toes and pressure ulceration to heel. PLAN: The wound was debrided, including subcutaneous tissue. Continue current Alginate dressing to right heel with offloading boot. Continue antibiotic ointment to third toe. Do recommend more urgent vascular consultation due to worsening vascular changes to his right toe with worsening of the gangrene. The concern, of course, is spreading gangrene resulting in more amputation, of which he does not have the blood flow to heal ultimately and resulting in right lower extremity amputation as well. A vascular consultation would allow if any possible vascular intervention is warranted. In the meantime, continue current wound care. We will follow.
--- NOTE | 2016-11-06 12:59 | ECGEPIP ---
Stationary ECG Study [facility] Test Date: 2016-11-06 Pat Name: CATHI SEBASTIAN Department: Room: [place] [address] Gender: M Rn Primary Care: YADIR[facility] [employer] : 1950 Requested By: YULISSA PARK Order Number: [id number] Reading MD: Dino Gale Measurements Intervals [place] Rate: 89 P: -90 VA: 157 QRS: -58 QRSD: 125 T: 124 QT: 364 QTc: 445 Interpretive Statements Underlying ectopic atrial rhythm Extreme leftward axis Left bundle branch block Rhythm is changed from 10/26/16 Electronically Signed On 11-06-2016 12:59:25 EST by Dino Gale
[2016-11-06] MEDS: LACTIC ACID 12% LOTION 225 GM BTL TOP SCH (14:35)
[2016-11-06] MEDS: NEOSPORIN TOP OINT 15GM TOP SCH (14:36)
[2016-11-06] MEDS: **NOTE PATIENT COMMENT** MISC XX SCH (19:44)
[2016-11-07 07:00] VITALS: BP 128/63
[2016-11-07] MEDS: POLYVINYL ALCOHOL OPHTH SOLN 15 ML(LIQUITEARS) OU SCH ×3 (09:04→20:05)
[2016-11-07] MEDS: guaiFENesin ER 600 MG TAB PO SCH ×2 (09:04→20:03)
[2016-11-07] MEDS: diltiaZEM **CD** 180 MG CAP PO SCH (09:05)
[2016-11-07] MEDS: APIXABAN 2.5 MG TAB (ELIQUIS) PO SCH ×2 (09:05→20:03)
[2016-11-07] MEDS: GABAPENTIN 100 MG CAP PO SCH (09:05)
[2016-11-07] MEDS: CARBAMIDE PEROXIDE 6.5% OTIC SOLN 15ML AU SCH ×2 (09:06→20:05)
[2016-11-07] MEDS: DOCUSATE SODIUM 100 MG CAP PO SCH ×2 (09:06→20:03)
[2016-11-07] MEDS: SENOKOT S TAB PO SCH ×2 (09:06→20:03)
[2016-11-07] MEDS: BENZONATATE 100 MG CAP PO SCH ×3 (09:06→20:03)
[2016-11-07] MEDS: SODIUM CHLORIDE NASAL 0.65% SPRAY BTL (OCEAN) SCH ×2 (09:06→20:05)
[2016-11-07] MEDS: LIDOCAINE 5% (LIDODERM) PATCH TD SCH (09:07)
[2016-11-07] MEDS: LACTIC ACID 12% LOTION 225 GM BTL TOP SCH (09:08)
[2016-11-07] MEDS: NEOSPORIN TOP OINT 15GM TOP SCH (09:10)
[2016-11-07] MEDS ORDERED: LevoFLOXacin 750 MG TABLET PO ONE (11:00)
[2016-11-07] MEDS: PERCOCET 5MG/325MG TAB PO PRN (20:04)
[2016-11-07] MEDS: **NOTE PATIENT COMMENT** MISC XX SCH (20:04)
[2016-11-08 07:00] VITALS: BP 139/75
--- NOTE | 2016-11-08 08:29 | IPN ---
DATE OF SERVICE: 11/06/2016 SUBJECTIVE: The patient was seen and examined at the bedside today in the morning during hemodialysis procedure. He was tolerating the hemodialysis procedure well. No complaints during the dialysis. REVIEW OF SYSTEMS: The patient denies any fever, chills, rigors, headache, nausea, vomiting, chest pain, shortness of breath, pain abdomen, constipation, or diarrhea. The rest of review of systems is negative. OBJECTIVE: VITAL SIGNS: Temperature is 98.7 degrees Fahrenheit, blood pressure is 144/64, pulse is 90, respiratory rate of 18, saturating 98% on room air. PHYSICAL EXAMINATION: GENERAL: The patient is awake, alert, oriented times three, lying in bed. No apparent distress. HEAD AND NECK EXAMINATION: The patient has a squint. Mucous membranes are moist. Neck is supple. There is no jugular venous distention (JVD). CARDIOVASCULAR: S1, S2, irregular heart rate. No murmur, rub, and gallop. RESPIRATORY: Chest is clear to auscultation bilaterally. Bilateral equal air entry. ABDOMEN: Is soft, positive bowel sounds, nontender. No ascites. No organomegaly. EXTREMITIES: The patient has a left below-knee amputation, and the patient's right foot also has ulcerations on the dorsum of the toes with decreased pulses. ARTERIOVENOUS (AV) ACCESS: The patient has a left forearm AV fistula, which is being used for dialysis. 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 Power is 5/5 at this time. LABORATORY REVIEW: CBC showed a WBC 6.7, hemoglobin 10.1, platelets of 190. BMP done on 11/03/2016 showed a potassium of 4.6, and calcium was 8.9. IMAGING: A chest x-ray was done yesterday, and it showed cardiomegaly and possible pulmonary venous congestion. CURRENT MEDICATIONS: The patient's current medications were all reviewed by me. There is no change in the medications at this time. ASSESSMENT: A 66-year-old male with past medical history of end-stage renal disease on hemodialysis, awaiting prison placement. Nephrology service following the patient for management of end-stage renal disease. PLAN: 1. End-stage renal disease. The patient is being dialyzed according to his regular schedule. Ultrafiltration goal will be around 3 to 3.5 liters as tolerated by his blood pressure. 2. Anemia in end-stage renal disease. Hemoglobin is above 10. It is within goal. Continue current dose of Aranesp 300 mcg intravenous (IV) with hemodialysis. 3. Peripheral vascular disease and right foot ulceration. We got the patient's appointment at vascular surgery's office in [place]. The patient is going to followup with them this .
[2016-11-08] MEDS: GABAPENTIN 100 MG CAP PO SCH (08:43)
[2016-11-08] MEDS: LIDOCAINE 5% (LIDODERM) PATCH TD SCH (08:43)
[2016-11-08] MEDS: diltiaZEM **CD** 180 MG CAP PO SCH (08:44)
[2016-11-08] MEDS: guaiFENesin ER 600 MG TAB PO SCH ×2 (08:44→19:46)
[2016-11-08] MEDS: DOCUSATE SODIUM 100 MG CAP PO SCH ×2 (08:44→19:46)
[2016-11-08] MEDS: NEOSPORIN TOP OINT 15GM TOP SCH (08:44)
[2016-11-08] MEDS: SENOKOT S TAB PO SCH ×2 (08:44→19:46)
[2016-11-08] MEDS: SODIUM CHLORIDE NASAL 0.65% SPRAY BTL (OCEAN) SCH ×2 (08:44→19:45)
[2016-11-08] MEDS: APIXABAN 2.5 MG TAB (ELIQUIS) PO SCH ×2 (08:44→19:46)
[2016-11-08] MEDS: BENZONATATE 100 MG CAP PO SCH ×3 (08:44→19:46)
[2016-11-08] MEDS: POLYVINYL ALCOHOL OPHTH SOLN 15 ML(LIQUITEARS) OU SCH ×3 (08:45→19:45)
[2016-11-08] MEDS: CARBAMIDE PEROXIDE 6.5% OTIC SOLN 15ML AU SCH ×2 (08:45→19:46)
[2016-11-08] MEDS: LACTIC ACID 12% LOTION 225 GM BTL TOP SCH (08:46)
[2016-11-08] MEDS: PERCOCET 5MG/325MG TAB PO PRN (19:47)
[2016-11-08] MEDS: **NOTE PATIENT COMMENT** MISC XX SCH (19:47)
[2016-11-09] MEDS: LevoFLOXacin 500 MG TABLET PO SCH (05:22)
[2016-11-09 08:00] VITALS: BP 131/63
[2016-11-09] MEDS: guaiFENesin ER 600 MG TAB PO SCH ×2 (08:36→20:09)
[2016-11-09] MEDS: APIXABAN 2.5 MG TAB (ELIQUIS) PO SCH ×2 (08:36→20:09)
[2016-11-09] MEDS: diltiaZEM **CD** 180 MG CAP PO SCH (08:36)
[2016-11-09] MEDS: GABAPENTIN 100 MG CAP PO SCH (08:37)
[2016-11-09] MEDS: BENZONATATE 100 MG CAP PO SCH ×3 (08:37→20:09)
[2016-11-09] MEDS: SENOKOT S TAB PO SCH ×2 (08:37→20:11)
[2016-11-09] MEDS: DOCUSATE SODIUM 100 MG CAP PO SCH ×2 (08:37→20:41)
[2016-11-09] MEDS: DIGOXIN 0.125 MG TAB PO SCH (08:37)
[2016-11-09] MEDS: LIDOCAINE 5% (LIDODERM) PATCH TD SCH (08:37)
[2016-11-09] MEDS: SODIUM CHLORIDE NASAL 0.65% SPRAY BTL (OCEAN) SCH ×2 (08:38→20:10)
[2016-11-09] MEDS: NEOSPORIN TOP OINT 15GM TOP SCH (08:38)
[2016-11-09] MEDS: POLYVINYL ALCOHOL OPHTH SOLN 15 ML(LIQUITEARS) OU SCH ×3 (08:38→20:09)
[2016-11-09] MEDS: CARBAMIDE PEROXIDE 6.5% OTIC SOLN 15ML AU SCH ×2 (08:38→20:11)
[2016-11-09] MEDS: LACTIC ACID 12% LOTION 225 GM BTL TOP SCH (08:39)
[2016-11-09 10:38] LABS: BASO % 0.2 % (0.0-1.0); EOS # 0.1 K/mm3 (0.0-0.50); LARGE UNSTAINED CELL # 0.1 K/mm3 (0.0-0.4); LARGE UNSTAINED CELL % 1.1 % (0.0-4.0); LYMPH # 0.9 K/mm3 (1.5-4.5); LYMPH % 13.3 % (24.0-44.0); MEAN CORPUSCULAR HGB CONC 28.3 g/dl (32.0-36.5); MEAN CORPUSCULAR VOLUME 77.8 fl (80.0-96.0); MONO # 0.3 K/mm3 (0.0-0.8); MONO % 4.8 % (0.0-5.0); NEUTROPHILS # 5.6 K/mm3 (1.8-7.7); NEUTROPHILS % 78.6 % (36.0-66.0); PLATELET COUNT, AUTOMATED 178 k/mm3 (150-450); RED CELL DISTRIBUTION WIDTH 16.5 % (11.5-14.5); WHITE BLOOD COUNT 7.1 K/mm3 (4.0-10.0)
[2016-11-09 10:55] LABS: ALBUMIN 2.6 GM/DL (3.2-5.2); CALCIUM LEVEL 8.7 MG/DL (8.8-10.2); CREATININE FOR GFR 9.39 MG/DL (0.70-1.30); GLOMERULAR FILTRATION RATE 7.2 (>49); PHOSPHORUS LEVEL 5.6 MG/DL (2.5-4.9)
[2016-11-09 11:00] LABS: POTASSIUM SERUM 5.3 MEQ/L (3.5-5.1)
--- NOTE | 2016-11-09 15:55 | IPN ---
DATE: 11/09/2016 SUBJECTIVE: The patient was seen and examined at the bedside today in the morning during hemodialysis. The patient was tolerating the hemodialysis procedure well. There were no active complaints. REVIEW OF SYSTEMS: The patient denies any fever, chills, rigors, headache, nausea, vomiting. He does report bilateral ear infections and he has cotton in both ears. He denies any chest pain, shortness of breath, pain in abdomen, constipation, diarrhea. All other review of system is negative. OBJECTIVE: VITAL SIGNS: Temperature is 97.5 degrees Fahrenheit, blood pressure is 131/63, pulse 98, respiratory rate of 16, saturating 97% on room air. Intake and output: There is no urine output recorded. Weight on the bed scale was 94.7 kg. PHYSICAL EXAMINATION: GENERAL: The patient is awake, alert and oriented times three. Laying in bed. No apparent distress. Getting hemodialysis. HEAD/NECK: The patient has a squint. Mucous membranes are moist. Neck is supple. There is no jugular venous distention (JVD). He has cotton in both ears because of recent ear infection. CARDIOVASCULAR: S1, S2, irregularly heart rate. No murmur, rub or gallop. RESPIRATORY: Chest is clear to auscultation bilaterally. Bilateral equal air entry. No rales or rhonchi. ABDOMEN: Soft. Positive bowel sounds. Nontender. No organomegaly. EXTREMITIES: The patient has left below knee amputation and the patient has ulcerations on the right foot toes as well. Pulses are 1 in the right foot. IV ACCESS: The patient has a left forearm arteriovenous (AV) fistula being used for dialysis for this time. CENTRAL NERVOUS SYSTEM: No focal neurological deficit. Power is 5/5 in all extremities. LAB REVIEW: CBC showed a WBC of 7.1, hemoglobin 10.2, platelets of 178. BMP showed sodium 136, potassium 5.3, chloride 97, bicarbonate 25, BUN 60, creatinine 9.3. Calcium 8.7, phosphorous is 5.6. Albumin is 2.6. CURRENT MEDICATIONS: The patient's medications were all reviewed by me. There is no change in the medications as compared with last time. ASSESSMENT: 66-year-old male with past medical history of end-stage renal disease on hemodialysis awaiting fpc placement. Nephrology service following the patient for management of end-stage renal disease. PLAN: 1. End-stage renal disease. The patient is getting dialyzed according to his regular schedule. Ultrafiltration goal will be around 3 to 4 liters as tolerated by his blood pressure. 2. Peripheral vascular disease and right foot ulceration. The patient is status post left below knee amputation. He has been referred to vascular surgery. He is going to see vascular surgeons in [place] this . 3. Anemia and end-stage renal disease. His hemoglobin is above 10 which is acceptable at this time. Continue current dose of Aranesp 300 mcg IV with hemodialysis. 4. Bilateral ear infections. The patient is currently on Levaquin 500 mg by mouth every 48 hours. The rest of the management is as per primary team.
[2016-11-09] MEDS: PERCOCET 5MG/325MG TAB PO PRN (20:10)
[2016-11-09] MEDS: **NOTE PATIENT COMMENT** MISC XX SCH (20:11)
[2016-11-10 06:39] LABS: CREATININE FOR GFR 6.01 MG/DL (0.70-1.30); GLOMERULAR FILTRATION RATE 12.1 (>49); MEAN CORPUSCULAR HEMOGLOBIN 22.7 pg (27.0-33.0); MEAN CORPUSCULAR HGB CONC 29.1 g/dl (32.0-36.5); MEAN CORPUSCULAR VOLUME 77.9 fl (80.0-96.0); POTASSIUM SERUM 4.4 MEQ/L (3.5-5.1); RED CELL DISTRIBUTION WIDTH 16.3 % (11.5-14.5); WHITE BLOOD COUNT 6.8 K/mm3 (4.0-10.0)
[2016-11-10 08:00] VITALS: BP 115/56
[2016-11-10] MEDS: CARBAMIDE PEROXIDE 6.5% OTIC SOLN 15ML AU SCH (09:00)
[2016-11-10] MEDS: BENZONATATE 100 MG CAP PO SCH ×3 (09:08→20:02)
[2016-11-10] MEDS: LIDOCAINE 5% (LIDODERM) PATCH TD SCH (09:08)
[2016-11-10] MEDS: guaiFENesin ER 600 MG TAB PO SCH ×2 (09:08→20:02)
[2016-11-10] MEDS: diltiaZEM **CD** 180 MG CAP PO SCH (09:08)
[2016-11-10] MEDS: POLYVINYL ALCOHOL OPHTH SOLN 15 ML(LIQUITEARS) OU SCH ×3 (09:09→20:02)
[2016-11-10] MEDS: APIXABAN 2.5 MG TAB (ELIQUIS) PO SCH ×2 (09:09→20:02)
[2016-11-10] MEDS: SODIUM CHLORIDE NASAL 0.65% SPRAY BTL (OCEAN) SCH ×2 (09:09→20:02)
[2016-11-10] MEDS: DOCUSATE SODIUM 100 MG CAP PO SCH ×2 (09:09→20:02)
[2016-11-10] MEDS: SENOKOT S TAB PO SCH ×2 (09:09→20:02)
[2016-11-10] MEDS: GABAPENTIN 100 MG CAP PO SCH (09:09)
[2016-11-10] MEDS: NEOSPORIN TOP OINT 15GM TOP SCH (09:10)
[2016-11-10] MEDS: LACTIC ACID 12% LOTION 225 GM BTL TOP SCH (09:11)
--- NOTE | 2016-11-10 14:24 | IPN ---
DATE: 11/10/2016 Time patient was seen was this morning at 11:10 a.m. Patient has been seen and examined at the bedside. No acute events overnight. Patient denies any fever or chills, any chest pain, trouble breathing, abdominal pains, nausea, vomiting, diarrhea, or constipation. Denies any problem with urination. Patient's earache has resolved. Patient continues to complain of right lower extremity toe ulcers which have been getting worse per patient. I also spoke to patient's on the phone and reassured her that Dr. Dela Cruz has been following patient and we are also following the patient. In addition, patient will have a vascular surgery consult on this . Patient's right toe ulcer does not appear to be healing well, probably due to the poor perfusion and I explained everything to the and she understands. PHYSICAL EXAMINATION: VITAL SIGNS: Temperature 96.8, pulse 86, respirations 20, blood pressure 115/56 , oxygen saturating at 96% on room air. GENERAL: Patient is a pleasant, elderly male, who was alert, awake, oriented times three. Does not appear to be in distress. Resting comfortably in bed with head elevated at 60 degrees. HEENT: Normocephalic, atraumatic. Extraocular motors intact. Mucous moist. NECK: Supple. No neck lymphadenopathy. Patient's bilateral ear drum appears to be scarred and likely has old otitis media in the past. CARDIOVASCULAR: Irregularly irregular. S1, S2. 3/6 systolic heart murmur. LUNGS: Clear to auscultation bilaterally. No wheezing, rales, or rhonchi. ABDOMEN: Positive bowel sounds. Soft, nontender, nondistended. No peritoneal signs. No ecchymosis. EXTREMITIES: Patient's right 3rd toe appears to be ulcerated and appears to have serous drainage, however there is no edema. Left leg has below the knee amputation. The stump is dry, clean, and intact, appears to have healed well. SKIN: Warm and dry. NEUROLOGIC: Cranial nerves II-XII intact. LABORATORY DATA: WBC 6.8, hemoglobin 10.4, hematocrit 35.8, with a platelet count of 174, MCV of 77.9. Sodium 138, potassium 4.4, chloride 98, bicarbonate 31, BUN 34, creatinine 6.01, GFR 12.1, fasting glucose 96, calcium 9. There is no new cultures and no new imaging. ASSESSMENT AND PLAN: 66-year-old male with past medical history of atrial fibrillation, end-stage renal disease on hemodialysis Wednesday, Wednesday, Wednesday, diastolic heart failure, pulmonary hypertension, thrombocytopenia, anemia, ulcers in the lower extremities, peripheral artery disease, history of prostate cancer, presented with: 1. Below the knee amputation on the left leg with Dr. Burns on 09/10/2016. Healing well. Continue physical therapy. In addition, patient's ulceration on the foot is managed by Dr. Dela Cruz status post debridement. 2. A rather new right 3rd toe ulcer. Following with Dr. Dela Cruz who will also manage his wound care, will continue. Patient's wound healing appears to be poor, possibly secondary to peripheral artery disease. 3. Severe peripheral artery disease. Dr. Dela Cruz recommended vascular surgery consult. Patient will go see vascular surgery this . Will followup. 4. End-stage renal disease on hemodialysis Wednesday, Wednesday, Wednesday. Nephrology is on board, will continue. 5. Diastolic heart failure, stable. Will continue to monitor. 6. Thrombocytopenia. Continue to monitor. 7. Chronic anemia. Continue to monitor. 8. History of prostate cancer. Continue to monitor. 9. Acute otitis media. Continue Levaquin 500 mg once every 48 hours to complete a 5 day course. 10. Atrial fibrillation. Continue digoxin, Eliquis, Cardizem, and continue to monitor patient. 11. Deep venous thrombosis (DVT) prophylaxis was initially on hold due to thrombocytopenia. However, patient's platelets are back to baseline. Will start patient on sequential compression device (SCD). No chemical prophylaxis due to patient has side effect from heparin in the past. DISPOSITION: Continue rehabilitation. Await for patient to go to vascular surgery appointment. Patient has been discussed with attending doctor, Dr. Ellis. My preceptor for this patient encounter was Dr. Tiffany Ellis. The preceptor was physically present in the building during the encounter and was fully available. As needed, all aspects of the patient interview, examination, medical decision making process, and medical care plan development were reviewed and approved by the preceptor. The preceptor is aware and concurs with the plan as stated in the body of this note and will attest to such by his cosignature. I have both independently examined this patient as well as reviewed the note. I have discussed in detail with the resident the findings and plan of treatment as documented in the residents note. I will continue to follow the patient and offer further guidance to the patients care as necessary during this hospital stay. Tiffany BESS
[2016-11-10] MEDS: **NOTE PATIENT COMMENT** MISC XX SCH (20:02)
[2016-11-11] MEDS: guaiFENesin ER 600 MG TAB PO SCH ×2 (06:17→19:37)
[2016-11-11] MEDS: APIXABAN 2.5 MG TAB (ELIQUIS) PO SCH ×2 (06:17→19:37)
[2016-11-11] MEDS: LIDOCAINE 5% (LIDODERM) PATCH TD SCH (06:17)
[2016-11-11] MEDS: DOCUSATE SODIUM 100 MG CAP PO SCH ×2 (06:17→19:37)
[2016-11-11] MEDS: GABAPENTIN 100 MG CAP PO SCH (06:17)
[2016-11-11] MEDS: BENZONATATE 100 MG CAP PO SCH ×3 (06:17→19:37)
[2016-11-11] MEDS: LevoFLOXacin 500 MG TABLET PO SCH (06:17)
[2016-11-11] MEDS: SENOKOT S TAB PO SCH ×2 (06:17→19:37)
[2016-11-11] MEDS: DIGOXIN 0.125 MG TAB PO SCH (06:18)
[2016-11-11] MEDS: SODIUM CHLORIDE NASAL 0.65% SPRAY BTL (OCEAN) SCH ×2 (06:20→19:37)
[2016-11-11] MEDS: diltiaZEM **CD** 180 MG CAP PO SCH (06:20)
[2016-11-11] MEDS: POLYVINYL ALCOHOL OPHTH SOLN 15 ML(LIQUITEARS) OU SCH ×3 (06:21→19:37)
[2016-11-11 07:00] VITALS: BP 141/64
[2016-11-11] MEDS: LACTIC ACID 12% LOTION 225 GM BTL TOP SCH (09:28)
[2016-11-11] MEDS: NEOSPORIN TOP OINT 15GM TOP SCH (09:29)
--- NOTE | 2016-11-11 12:05 | IPN ---
DATE: 11/11/2016 SUBJECTIVE: Patient was seen and examined at the bedside today in the morning during hemodialysis procedure. He was tolerating the hemodialysis procedure well. He does not have any acute complaints. REVIEW OF SYSTEMS: The patient denies any fever, chills, rigors, headache, nausea, vomiting, chest pain, shortness of breath, pain in abdomen or constipation. Rest of review of systems is negative. OBJECTIVE: VITAL SIGNS: Temperature is 98.5 degrees Fahrenheit, blood pressure is 141/64, pulse 100, respiratory rate of 18, saturating 94% on room air. INTAKE AND OUTPUT: There is no urine output recorded. Bed scale weight is not available. PHYSICAL EXAMINATION: GENERAL: Patient is awake, alert and oriented times three. Laying in bed. No apparent distress. Getting hemodialysis. HEAD/NECK: Patient has a squint. His mucous membranes are moist. Neck is supple. There is no jugular venous distention (JVD). CARDIOVASCULAR: S1, S2, irregularly heart rate. No murmur, rub or gallop. RESPIRATORY: Chest is clear to auscultation bilaterally. Bilateral equal air entry. No rales or rhonchi. ABDOMEN: Soft. Positive bowel sounds. Nontender. No organomegaly. EXTREMITIES: The patient has left below knee amputation and he has ulceration on the right foot as well because of peripheral vascular disease. AV ACCESS: The patient has a left forearm arteriovenous (AV) fistula which is being used for dialysis at this time. 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 LAB REVIEW: CBC showed a WBC of 6.8, hemoglobin 10.4. BMP showed sodium 138, potassium 4.4, chloride 98, BUN 34, creatinine 6, calcium was 9. CURRENT MEDICATIONS: The patient's medications were all reviewed by me. There is no change in the medications at this time. ASSESSMENT: 66-year-old male with past medical history of end-stage renal disease on hemodialysis awaiting jail placement. Nephrology service following the patient for management of end-stage renal disease. PLAN: 1. End-stage renal disease. The patient is getting hemodialyzed Wednesday, Wednesday, and Wednesday during this week. He is being dialyzed according to his schedule. Ultrafiltration goal will be around 3 to 4 liters as tolerated by his blood pressure. 2. Peripheral vascular disease and right foot ulceration. The patient was referred to vascular surgery in [place]. He will go to see the surgeons tomorrow morning. 3. Anemia and end-stage renal disease. Patient's hemoglobin is 10.4, which is acceptable at this time. Continue current dose of Aranesp 300 mcg IV every hemodialysis.
[2016-11-11] MEDS: **NOTE PATIENT COMMENT** MISC XX SCH (19:38)
[2016-11-12 07:00] VITALS: BP 124/60
[2016-11-12] MEDS: APIXABAN 2.5 MG TAB (ELIQUIS) PO SCH ×2 (08:36→19:57)
[2016-11-12] MEDS: SENOKOT S TAB PO SCH ×2 (08:36→19:57)
[2016-11-12] MEDS: diltiaZEM **CD** 180 MG CAP PO SCH (08:36)
[2016-11-12] MEDS: GABAPENTIN 100 MG CAP PO SCH (08:36)
[2016-11-12] MEDS: DOCUSATE SODIUM 100 MG CAP PO SCH ×2 (08:36→19:57)
[2016-11-12] MEDS: POLYVINYL ALCOHOL OPHTH SOLN 15 ML(LIQUITEARS) OU SCH ×3 (08:36→19:58)
[2016-11-12] MEDS: BENZONATATE 100 MG CAP PO SCH ×3 (08:36→19:57)
[2016-11-12] MEDS: SODIUM CHLORIDE NASAL 0.65% SPRAY BTL (OCEAN) SCH ×2 (08:36→19:58)
[2016-11-12] MEDS: guaiFENesin ER 600 MG TAB PO SCH ×2 (08:37→19:57)
[2016-11-12] MEDS: LIDOCAINE 5% (LIDODERM) PATCH TD SCH (08:37)
[2016-11-12] MEDS: PERCOCET 5MG/325MG TAB PO PRN (08:37)
[2016-11-12] MEDS: NEOSPORIN TOP OINT 15GM TOP SCH (08:37)
[2016-11-12] MEDS: LACTIC ACID 12% LOTION 225 GM BTL TOP SCH (08:37)
[2016-11-12] MEDS: **NOTE PATIENT COMMENT** MISC XX SCH (19:58)
[2016-11-12] MEDS: ACETAMINOPHEN TAB 650MG DOSE (2X325MG) PO PRN (22:24)
[2016-11-13] MEDS: LevoFLOXacin 500 MG TABLET PO SCH (06:14)
[2016-11-13] MEDS: APIXABAN 2.5 MG TAB (ELIQUIS) PO SCH ×2 (06:15→19:36)
[2016-11-13] MEDS: diltiaZEM **CD** 180 MG CAP PO SCH (06:15)
[2016-11-13] MEDS: SENOKOT S TAB PO SCH ×2 (06:16→19:36)
[2016-11-13] MEDS: guaiFENesin ER 600 MG TAB PO SCH ×2 (06:16→19:36)
[2016-11-13] MEDS: GABAPENTIN 100 MG CAP PO SCH (06:16)
[2016-11-13] MEDS: BENZONATATE 100 MG CAP PO SCH ×3 (06:16→19:36)
[2016-11-13] MEDS: SODIUM CHLORIDE NASAL 0.65% SPRAY BTL (OCEAN) SCH ×2 (06:16→19:36)
[2016-11-13] MEDS: LIDOCAINE 5% (LIDODERM) PATCH TD SCH (06:17)
[2016-11-13] MEDS: POLYVINYL ALCOHOL OPHTH SOLN 15 ML(LIQUITEARS) OU SCH ×3 (06:17→19:36)
[2016-11-13] MEDS: DOCUSATE SODIUM 100 MG CAP PO SCH ×2 (06:23→19:36)
[2016-11-13] MEDS: DIGOXIN 0.125 MG TAB PO SCH (06:23)
[2016-11-13 08:00] VITALS: BP 129/60
[2016-11-13] MEDS: LACTIC ACID 12% LOTION 225 GM BTL TOP SCH (08:23)
[2016-11-13] MEDS: NEOSPORIN TOP OINT 15GM TOP SCH (08:24)
[2016-11-13 12:27] LABS: ALBUMIN 2.8 GM/DL (3.2-5.2); CALCIUM LEVEL 8.8 MG/DL (8.8-10.2); CREATININE FOR GFR 7.92 MG/DL (0.70-1.30); GLOMERULAR FILTRATION RATE 8.8 (>49); PHOSPHORUS LEVEL 4.9 MG/DL (2.5-4.9); POTASSIUM SERUM 4.7 MEQ/L (3.5-5.1)
[2016-11-13 12:31] LABS: BASO % 0.3 % (0.0-1.0); EOS # 0.2 K/mm3 (0.0-0.50); EOS % 2.2 % (0.0-3.0); LARGE UNSTAINED CELL # 0.1 K/mm3 (0.0-0.4); LARGE UNSTAINED CELL % 1.8 % (0.0-4.0); LYMPH # 1.3 K/mm3 (1.5-4.5); LYMPH % 15.3 % (24.0-44.0); MEAN CORPUSCULAR HEMOGLOBIN 22.4 pg (27.0-33.0); MEAN CORPUSCULAR HGB CONC 29.6 g/dl (32.0-36.5); MEAN CORPUSCULAR VOLUME 75.7 fl (80.0-96.0); MONO # 0.4 K/mm3 (0.0-0.8); MONO % 4.7 % (0.0-5.0); NEUTROPHILS # 5.6 K/mm3 (1.8-7.7); NEUTROPHILS % 75.7 % (36.0-66.0); PLATELET COUNT, AUTOMATED 161 k/mm3 (150-450); RED CELL DISTRIBUTION WIDTH 17.4 % (11.5-14.5); WHITE BLOOD COUNT 7.4 K/mm3 (4.0-10.0)
[2016-11-13] MEDS: **NOTE PATIENT COMMENT** MISC XX SCH (19:36)
--- NOTE | 2016-11-13 20:45 | IPN ---
DATE: 11/13/2016 SUBJECTIVE: The patient was seen and examined at the bedside today in the morning during hemodialysis. The patient is tolerating the hemodialysis procedure well. There are no active complaints at this time. REVIEW OF SYSTEMS: The patient denies any fever, chills, rigors, headache, nausea, vomiting, chest pain, shortness of breath, pain in the abdomen, constipation or diarrhea. The rest of the review of systems is negative. OBJECTIVE: VITAL SIGNS: Temperature is 97.7 degrees Fahrenheit. Blood pressure is 129.60, pulse is 91, respiratory rate of 18, saturating 97% on room air. Intake and output: There is no urine output recorded. Bed scale weight is not available. PHYSICAL EXAMINATION: The patient is awake, alert and oriented times three. Laying in bed. No apparent distress. HEAD/NECK: Mucous membranes are moist. The patient has a squint. Neck is supple. There is no jugular venous distention (JVD). CARDIOVASCULAR: S1, S2, irregularly irregular heart rate. No murmur, rub or gallop. RESPIRATORY: Chest is clear to auscultation bilaterally. Bilateral equal air entry. ABDOMEN: Soft. Positive bowel sounds. Nontender. No organomegaly. EXTREMITIES: The patient has a left below knee amputation and he has ulcerations on the right foot as well. Pulses are 1+ only. ARTERIOVENOUS (AV) ACCESS: The patient has a left forearm AV fistula which is being used for dialysis at this time. CENTRAL NERVOUS SYSTEM: No focal neurological deficit. Power is 5/5 and he follows commands. LABORATORY REVIEW: CBC showed a WBC of 6.8, hemoglobin 10.4, platelets of 174. BMP from 11/10. Repeat labs are pending today. CURRENT MEDICATIONS: The patient's current medications were all reviewed by me. There is no change in the medications at this time as compared with the last hemodialysis session. ASSESSMENT: 66-year-old male with past medical history of end-stage renal disease, on hemodialysis awaiting fpc placement. Nephrology service following the patient for management of end-stage renal disease. PLAN: 1. End-stage renal disease. The patient is being dialyzed today. We shall try to do an ultrafiltration of about 3 liters as tolerated by his blood pressure. 2. Peripheral vascular disease and right foot ulcerations. The patient was referred to vascular surgery in [place], but possibly because of the weather his appointment has been rescheduled. He will be seen at their office next Wednesday at 2:00 in the afternoon. The patient will be dialyzed early in the morning before he goes for his appointment. Continue the Wednesday, Wednesday, Wednesday schedule at this time. 3. Anemia and end-stage renal disease. The patient's repeat CBC is pending today. His previous CBC, hemoglobin was within normal range. Continue current dose of Aranesp 300 mcg IV with hemodialysis.
[2016-11-14 08:00] VITALS: BP 128/58
[2016-11-14] MEDS ORDERED: DIGOXIN 0.125 MG TAB PO ONE (08:30)
[2016-11-14] MEDS: DOCUSATE SODIUM 100 MG CAP PO SCH ×2 (09:49→19:31)
[2016-11-14] MEDS: GABAPENTIN 100 MG CAP PO SCH (09:50)
[2016-11-14] MEDS: SENOKOT S TAB PO SCH ×2 (09:50→19:31)
[2016-11-14] MEDS: diltiaZEM **CD** 180 MG CAP PO SCH (09:50)
[2016-11-14] MEDS: APIXABAN 2.5 MG TAB (ELIQUIS) PO SCH ×2 (09:50→19:31)
[2016-11-14] MEDS: BENZONATATE 100 MG CAP PO SCH ×3 (09:50→19:31)
[2016-11-14] MEDS: LIDOCAINE 5% (LIDODERM) PATCH TD SCH (09:50)
[2016-11-14] MEDS: guaiFENesin ER 600 MG TAB PO SCH ×2 (09:50→19:31)
[2016-11-14] MEDS: SODIUM CHLORIDE NASAL 0.65% SPRAY BTL (OCEAN) SCH ×2 (09:50→19:31)
[2016-11-14] MEDS: POLYVINYL ALCOHOL OPHTH SOLN 15 ML(LIQUITEARS) OU SCH ×3 (09:50→19:31)
[2016-11-14] MEDS: LACTIC ACID 12% LOTION 225 GM BTL TOP SCH (09:51)
[2016-11-14] MEDS: NEOSPORIN TOP OINT 15GM TOP SCH (09:51)
[2016-11-14] MEDS: **NOTE PATIENT COMMENT** MISC XX SCH (19:31)
[2016-11-15 08:00] VITALS: BP 139/62
[2016-11-15] MEDS: SODIUM CHLORIDE NASAL 0.65% SPRAY BTL (OCEAN) SCH ×2 (09:08→20:11)
[2016-11-15] MEDS: guaiFENesin ER 600 MG TAB PO SCH ×2 (09:09→20:11)
[2016-11-15] MEDS: SENOKOT S TAB PO SCH ×2 (09:09→20:11)
[2016-11-15] MEDS: GABAPENTIN 100 MG CAP PO SCH (09:09)
[2016-11-15] MEDS: POLYVINYL ALCOHOL OPHTH SOLN 15 ML(LIQUITEARS) OU SCH ×3 (09:09→20:11)
[2016-11-15] MEDS: APIXABAN 2.5 MG TAB (ELIQUIS) PO SCH ×2 (09:09→20:11)
[2016-11-15] MEDS: LIDOCAINE 5% (LIDODERM) PATCH TD SCH (09:09)
[2016-11-15] MEDS: BENZONATATE 100 MG CAP PO SCH ×3 (09:09→20:11)
[2016-11-15] MEDS: diltiaZEM **CD** 180 MG CAP PO SCH (09:09)
[2016-11-15] MEDS: DOCUSATE SODIUM 100 MG CAP PO SCH ×2 (09:09→20:11)
[2016-11-15] MEDS: NEOSPORIN TOP OINT 15GM TOP SCH (09:10)
[2016-11-15] MEDS: LACTIC ACID 12% LOTION 225 GM BTL TOP SCH (09:11)
--- NOTE | 2016-11-15 11:45 | IPN ---
DATE OF SERVICE: 11/14/2016 Time patient was seen was at 11 a.m. The patient has been seen and examined at the bedside. No acute events overnight. The patient is feeling about the same. Denies any fever or chills, any chest pain, trouble breathing, abdominal pains, nausea, vomiting, diarrhea, or constipation. PHYSICAL EXAMINATION: VITAL SIGNS: Temperature 97, pulse 120, respiration 18, blood pressure 128/58, oxygen was saturating at 98% on room air. GENERAL: The patient is a pleasant elderly male who was alert, awake, oriented times three. Does not appear to be in distress. Resting comfortably in bed with head elevated at 45-degree angle. HEENT: Normocephalic, atraumatic. Extraocular motors intact. Mucosa moist. NECK: Supple. No neck lymphadenopathy. CARDIOVASCULAR: Irregularly irregular. S1, S2. 3/6 systolic heart murmur. LUNGS: Clear to auscultation bilaterally. No wheezing, rales, or rhonchi. ABDOMEN: Positive bowel sounds. Soft, nontender, nondistended. No peritoneal signs. No ecchymosis. EXTREMITIES: The patient's dressing at the right lower extremity is dry, clean, and intact. The patient does have an ulcer at the right 3rd toe, and it appears to be necrotic, however, there is no purulent drainage. The patient's left leg has [id number]-[id number] amputation, and the stump does not have any ulcers and was nontender to palpation. No erythema. There is no drainage. SKIN: Warm and dry. NEUROLOGIC: Cranial nerves II-XII intact. No focal neurologic deficit. LABORATORIES: On 11/13/2016, WBC was 7.4, hemoglobin 10.7, hematocrit 36, with a platelet count of 161, and MCV of 75.7. Sodium 139, potassium 4.7, chloride 98, bicarbonate 29, creatinine was 7.92, GFR 8, fasting glucose 155, albumin 2.8. ASSESSMENT AND PLAN: A 66-year-old male with a past medical history of atrial fibrillation on Eliquis, end-stage renal disease on hemodialysis Wednesday, Wednesday, Wednesday, diastolic heart failure, pulmonary hypertension, thrombocytopenia, anemia, ulcers in the lower extremities, peripheral artery disease, history of prostate cancer, presented with: 1. Kakru-hyj-bngu amputation on the left leg with Dr. Burns on 09/10/2016. Healing well. Continue physical therapy. The patient's ulcer on the foot is managed by Dr. Dela Cruz, status post debridement. 2. A 3rd toe ulcer. Follows with Dr. Dela Cruz and will follow his recommendation for wound care. However, it does not appear to be healing well, probably secondary to peripheral artery disease. 3. Severe peripheral artery disease. Dr. Dela Cruz recommended vascular surgery consult. Patient will see vascular surgery the following Wednesday. 4. End-stage renal disease, on hemodialysis Wednesday, Wednesday, Wednesday. Nephrology has been consulted. Will continue to follow. 5. Diastolic heart failure. Stable. 6. Thrombocytopenia. Resolved. 7. Chronic anemia. Stable. 8. History of prostate cancer. Stable. 9. Acute otitis media. Resolved. 10. Atrial fibrillation with rapid ventricular response (RVR). The patient had additional dose of digoxin today, and ventricular rate was in the 120s. However , it has resolved later in the afternoon. Continue Eliquis, Cardizem. 11. Deep venous thrombosis (DVT) prophylaxis. On Eliquis. Will continue sequential compression device (SCD), as well. DISPOSITION: Continue rehabilitation. Waiting for the next vascular surgery appointment. The patient's initial vascular surgery appointment was cancelled due to severe weather. The patient has been discussed with attending doctor, Dr. Ellis. My preceptor for this patient encounter was Dr. Tiffany Ellis. The preceptor was physically present in the building during the encounter and was fully available. As needed, all aspects of the patient interview, examination, medical decision making process, and medical care plan development were reviewed and approved by the preceptor. The preceptor is aware and concurs with the plan as stated in the body of this note and will attest to such by his cosignature. I have both independently examined this patient as well as reviewed the note. I have discussed in detail with the resident the findings and plan of treatment as documented in the residents note. I will continue to follow the patient and offer further guidance to the patients care as necessary during this hospital stay. Tiffany BESS
[2016-11-15] MEDS: **NOTE PATIENT COMMENT** MISC XX SCH (20:11)
[2016-11-16] MEDS: SENOKOT S TAB PO SCH ×2 (05:40→20:39)
[2016-11-16] MEDS: LIDOCAINE 5% (LIDODERM) PATCH TD SCH (05:40)
[2016-11-16] MEDS: guaiFENesin ER 600 MG TAB PO SCH ×2 (05:41→20:39)
[2016-11-16] MEDS: GABAPENTIN 100 MG CAP PO SCH (05:41)
[2016-11-16] MEDS: diltiaZEM **CD** 180 MG CAP PO SCH (05:41)
[2016-11-16] MEDS: SODIUM CHLORIDE NASAL 0.65% SPRAY BTL (OCEAN) SCH ×2 (05:41→20:39)
[2016-11-16] MEDS: BENZONATATE 100 MG CAP PO SCH ×3 (05:41→20:39)
[2016-11-16] MEDS: APIXABAN 2.5 MG TAB (ELIQUIS) PO SCH ×2 (05:41→20:39)
[2016-11-16] MEDS: DOCUSATE SODIUM 100 MG CAP PO SCH ×2 (05:41→20:39)
[2016-11-16] MEDS: POLYVINYL ALCOHOL OPHTH SOLN 15 ML(LIQUITEARS) OU SCH ×3 (05:42→20:40)
[2016-11-16 08:00] VITALS: BP 130/65
[2016-11-16] MEDS: LACTIC ACID 12% LOTION 225 GM BTL TOP SCH (08:29)
[2016-11-16] MEDS: NEOSPORIN TOP OINT 15GM TOP SCH (08:29)
--- NOTE | 2016-11-16 13:57 | IPN ---
DATE: 11/16/2016 Mr. Fernandez is seen this morning on his bedside during hemodialysis. He is feeling well and denies any dyspnea, chest pain, nausea or vomiting. He is scheduled for an outpatient consultation with vascular surgery later this afternoon. PHYSICAL EXAMINATION: His temperature is 97 degrees Fahrenheit, heart rate 66 per minute and respiratory rate 18 per minute. Blood pressure 130/65 mmHg and oxygen saturation 95% on room air. His head is atraumatic. Ears, nose and throat are unremarkable. He is edentulous without any oral thrush or ulcers. Neck veins are not abnormally distended. His neck is supple and without any thyroid enlargement. Heart sounds are regular with a systolic murmur, grade 2/6, which is unchanged. Lungs clear to auscultation bilaterally. Abdomen is soft and nontender. Bowel sounds are normal and there is no palpable organomegaly. Extremities have no cyanosis or clubbing. His left arm AV fistula is functioning. Right foot is in the splint and some dressing on his heel ulcer. Left leg has [id number]-[id number] amputation with well-healed stump. The patient did not have any labs since November 13. PROBLEMS: 1. End-stage renal disease. The patient is currently being dialyzed, and today his dialysis session will be only for 3 hours as the patient has transportation scheduled for later this afternoon visit with vascular surgery. His electrolytes are within normal range, and his volume status is well-compensated. We are removing about 3 liters fluid as usual. He is tolerating his dialysis very well. 2. Hypertension. Blood pressure has been reasonably well-controlled and current antihypertensive medications will be continued. 3. Anemia. His anemia has been corrected, and he receives Aranesp once a week. He has also received 10 doses of Venofer during his stay here in the hospital. 4. Peripheral vascular disease. The patient had left dklxc-[id number] amputation. He has a non healing ulcer on his right heel. Vascular surgery evaluation is pending for this afternoon.
[2016-11-16] MEDS: DIGOXIN 0.125 MG TAB PO SCH (17:51)
[2016-11-16] MEDS: **NOTE PATIENT COMMENT** MISC XX SCH (20:40)
[2016-11-17 06:55] LABS: MEAN CORPUSCULAR HEMOGLOBIN 21.9 pg (27.0-33.0); MEAN CORPUSCULAR HGB CONC 29.5 g/dl (32.0-36.5); MEAN CORPUSCULAR VOLUME 74.1 fl (80.0-96.0); RED CELL DISTRIBUTION WIDTH 18.2 % (11.5-14.5); WHITE BLOOD COUNT 9.6 K/mm3 (4.0-10.0)
[2016-11-17 07:00] VITALS: BP 101/54
[2016-11-17 07:18] LABS: CALCIUM LEVEL 9.3 MG/DL (8.8-10.2); CREATININE FOR GFR 6.76 MG/DL (0.70-1.30); GLOMERULAR FILTRATION RATE 10.6 (>49)
[2016-11-17] MEDS: GABAPENTIN 100 MG CAP PO SCH (08:30)
[2016-11-17] MEDS: BENZONATATE 100 MG CAP PO SCH ×3 (08:30→20:00)
[2016-11-17] MEDS: SENOKOT S TAB PO SCH ×2 (08:30→20:00)
[2016-11-17] MEDS: LIDOCAINE 5% (LIDODERM) PATCH TD SCH (08:30)
[2016-11-17] MEDS: POLYVINYL ALCOHOL OPHTH SOLN 15 ML(LIQUITEARS) OU SCH ×3 (08:30→19:59)
[2016-11-17] MEDS: DOCUSATE SODIUM 100 MG CAP PO SCH ×2 (08:30→19:59)
[2016-11-17] MEDS: guaiFENesin ER 600 MG TAB PO SCH ×2 (08:30→19:59)
[2016-11-17] MEDS: APIXABAN 2.5 MG TAB (ELIQUIS) PO SCH ×2 (08:31→20:00)
[2016-11-17] MEDS: SODIUM CHLORIDE NASAL 0.65% SPRAY BTL (OCEAN) SCH ×2 (08:31→19:59)
[2016-11-17] MEDS: PERCOCET 5MG/325MG TAB PO PRN (08:31)
[2016-11-17] MEDS: diltiaZEM **CD** 180 MG CAP PO SCH (08:31)
[2016-11-17] MEDS: NEOSPORIN TOP OINT 15GM TOP SCH (08:32)
[2016-11-17] MEDS: LACTIC ACID 12% LOTION 225 GM BTL TOP SCH (08:32)
[2016-11-17] MEDS: **NOTE PATIENT COMMENT** MISC XX SCH (20:00)
[2016-11-18] MEDS: diltiaZEM **CD** 180 MG CAP PO SCH (06:17)
[2016-11-18] MEDS: guaiFENesin ER 600 MG TAB PO SCH ×2 (06:18→20:55)
[2016-11-18] MEDS: LIDOCAINE 5% (LIDODERM) PATCH TD SCH (06:18)
[2016-11-18] MEDS: GABAPENTIN 100 MG CAP PO SCH (06:18)
[2016-11-18] MEDS: APIXABAN 2.5 MG TAB (ELIQUIS) PO SCH ×2 (06:18→20:55)
[2016-11-18] MEDS: DOCUSATE SODIUM 100 MG CAP PO SCH ×2 (06:18→20:55)
[2016-11-18] MEDS: BENZONATATE 100 MG CAP PO SCH ×3 (06:19→20:55)
[2016-11-18] MEDS: SENOKOT S TAB PO SCH ×2 (06:19→20:55)
[2016-11-18] MEDS: SODIUM CHLORIDE NASAL 0.65% SPRAY BTL (OCEAN) SCH ×2 (06:19→20:57)
[2016-11-18] MEDS: OLOPATADINE 0.1% OPHTH SOL 5ML(PATANOL) OU PRN (06:20)
[2016-11-18] MEDS: POLYVINYL ALCOHOL OPHTH SOLN 15 ML(LIQUITEARS) OU SCH ×3 (06:20→20:57)
[2016-11-18] MEDS: NEOSPORIN TOP OINT 15GM TOP SCH (07:46)
[2016-11-18] MEDS: LACTIC ACID 12% LOTION 225 GM BTL TOP SCH (07:46)
[2016-11-18 08:36] VITALS: BP 118/55
--- NOTE | 2016-11-18 11:04 | IPN ---
DATE: 11/18/2016 Mr. Fernandez is seen this morning on his bedside during hemodialysis. He went for vascular surgery evaluation to [facility] on 11/16/2016. He is in need for an angiogram of his right lower extremity due to a nonhealing ulcer on his heel and peripheral vascular disease. This procedure is going to be scheduled at a later time. In the meantime, the patient has been doing well without any nausea, vomiting, dyspnea or chest pain. On physical exam, his temperature is 97.4 degrees Fahrenheit, heart rate 89 per minute and respiratory rate 18 per minute. Blood pressure 118/55 mmHg and oxygen saturation 95% on room air. His head is atraumatic. Ears, nose and throat are unremarkable. His neck is supple and without any jugular venous distention (JVD) or thyroid enlargement. Heart sounds are regular and without a pericardial friction rub. Lungs sound clear to auscultation. Abdomen is soft and nontender. Bowel sounds are normal and there is no palpable organomegaly. Extremities have no cyanosis or clubbing. Left arm AV fistula is functioning. He has a left bvuwd-[id number] amputation. Right foot is in the foot brace and dressing. Labs done on 11/17/2016 showed a hemoglobin of 11.1 and hematocrit 37.5. WBC count 9.6. Sodium 135 and potassium 5.0. BUN 45 and creatinine 6.76. PROBLEMS: 1. End-stage renal disease. The patient is being dialyzed today, which is his regular day. He is tolerating his dialysis treatment very well. His electrolytes are within normal range and volume status is well-compensated. 2. Anemia. His anemia has improved and Aranesp is being stopped. We will continue to monitor. He has received 10 doses of intravenous Venofer already. 3. Hypertension. Blood pressure is very well controlled on current antihypertensive meds. 4. Peripheral vascular disease with right foot ulcer. The patient is seen by vascular surgery and he will have an angiogram and possible angioplasty at a later time. 5. Disposition. The patient is currently waiting for a retirement bed and is likely to be discharged to [facility].
[2016-11-18] MEDS: ACETAMINOPHEN TAB 650MG DOSE (2X325MG) PO PRN (11:37)
[2016-11-18] MEDS: DIGOXIN 0.125 MG TAB PO SCH (18:07)
[2016-11-18] MEDS: **NOTE PATIENT COMMENT** MISC XX SCH (20:58)
[2016-11-18 21:39] VITALS: BP 105/55
[2016-11-19 08:00] VITALS: BP 119/58
[2016-11-19] MEDS: APIXABAN 2.5 MG TAB (ELIQUIS) PO SCH ×2 (09:31→20:19)
[2016-11-19] MEDS: guaiFENesin ER 600 MG TAB PO SCH ×2 (09:31→20:19)
[2016-11-19] MEDS: SENOKOT S TAB PO SCH ×2 (09:31→20:19)
[2016-11-19] MEDS: GABAPENTIN 100 MG CAP PO SCH (09:31)
[2016-11-19] MEDS: BENZONATATE 100 MG CAP PO SCH ×3 (09:31→20:19)
[2016-11-19] MEDS: diltiaZEM **CD** 180 MG CAP PO SCH (09:32)
[2016-11-19] MEDS: LIDOCAINE 5% (LIDODERM) PATCH TD SCH (09:32)
[2016-11-19] MEDS: DOCUSATE SODIUM 100 MG CAP PO SCH ×2 (09:32→20:19)
[2016-11-19] MEDS: POLYVINYL ALCOHOL OPHTH SOLN 15 ML(LIQUITEARS) OU SCH ×3 (09:33→20:20)
[2016-11-19] MEDS: SODIUM CHLORIDE NASAL 0.65% SPRAY BTL (OCEAN) SCH ×2 (09:33→20:19)
[2016-11-19] MEDS: NEOSPORIN TOP OINT 15GM TOP SCH (09:35)
[2016-11-19] MEDS: LACTIC ACID 12% LOTION 225 GM BTL TOP SCH (09:35)
[2016-11-19] MEDS ORDERED: GABA-279 PO (18:15)
[2016-11-19] MEDS ORDERED: LIDO5TD TD (18:15)
[2016-11-19] MEDS ORDERED: OCEA0.654 (18:15)
--- NOTE | 2016-11-19 19:25 | DSES ---
DATE OF ADMISSION: 08/28/2016 DATE OF DISCHARGE: 11/19/2016 DISCHARGE DIAGNOSIS: Severe sepsis. SECONDARY DIAGNOSES: 1. Acute gastrointestinal (GI) bleed. 2. Acute blood loss anemia. 3. Atrial fibrillation with rapid ventricular response. 4. End-stage renal disease on hemodialysis. 5. Hypertension. 6. Peripheral vascular disease. 7. Diastolic congestive heart failure. 8. Cor pulmonale. 9. Thrombocytopenia. 10. Left lower extremity wound. 11. Prostate cancer status post x-ray therapy (XRT) 10 years ago. CONSULTATIONS: 1. Dr. Heath, gastroenterology. 2. Dr. Abraham, nephrology. 3. Dr. Dela Cruz, podiatry. 4. Dr. Burns, general surgery. PROCEDURES: The patient did undergo upper GI endoscopy, colonoscopy, left below-knee amputation for gangrene of left toes and distal foot secondary to peripheral vascular disease. HOSPITAL COURSE: The patient is a 66-year-old man who initially presented from dialysis, was found to be hypotensive. He had had dark, tarry stools. He was admitted and it was felt to be that his hemoglobin was found to be profoundly low. He received a total of eight units of packed red blood cells (PRBCs) early on in his hospital course. He did undergo upper endoscopy and lower colonoscopy. It was suspected that he may have had bleeding from a polyp. His anticoagulation was held for a significant amount of time. The patient did present hypotensive and have shock liver. He was initially in the medical intensive care unit. Once he was transfused and status post removal of his polyps during colonoscopy, the patient's bleeding ceased. He was subsequently seen by Dr. Burns for gangrene of the left lower extremity. It was also felt that this could be a potential course of his severe sepsis which he had on arrival, with elevated lactic acidosis. He subsequently underwent a left below-knee amputation. The patient did have an echocardiogram which revealed both diastolic heart failure as well as right-sided cor pulmonale. His chronic wounds of his right lower extremity were attended to by Dr. Dela Cruz of podiatry, who felt that progress was limited by his significant vascular disease. The patient did actually have an outpatient appointment with his vascular surgeon in [place] this week and suggested performing an angiogram at a later date in the future, possibly within the next three weeks. The patient was continued on regular hemodialysis while in hospital. SUBJECTIVE: Today, the patient was feeling well, had no complaints. He is eager to leave the hospital. He denied any chest pain, shortness of breath, fever, chills, nausea, vomiting, or diarrhea. He is not in any significant pain. OBJECTIVE: VITAL SIGNS: Temperature 98.5, pulse 100, respirations 18, blood pressure 119/58, oxygen saturation 95% on room air. GENERAL: He is a very pleasant (sound skip), sitting in his bed watching television. No acute distress. HEENT: He has significant cataracts as well as senile arcus. He has moist mucous membranes. No elevation of central venous pressure (central venous pressure). CARDIOVASCULAR: S1, S2, irregularly irregular. He is not tachycardic on my exam. RESPIRATORY: Clear. ABDOMEN: Benign. EXTREMITIES: He has a fistula in the left upper extremity. He has no clubbing, cyanosis or edema on the right. He is status post below-knee amputation (BKA) on the left. He does have chronic ulcers which are dressed and clean, dry and intact on the right. He is off-loaded with a pressure-relieving boot. LABORATORY DATA: From 11/17, WBC 9.6, hemoglobin 11.1, hematocrit 37.5, platelet count 167. Chemistry panel: Sodium 135, potassium 4.0, chloride 95, bicarbonate 30, BUN 45, creatinine 6.7. MICROBIOLOGY: Blood cultures from 08/28 were negative. Stool for occult blood repeat testing after his colonoscopy was negative. IMAGING: Significant imaging as discussed above. ASSESSMENT AND PLAN: This is a 66-year-old man who initially presented with acute blood loss anemia and essentially in shock secondary to gastrointestinal bleed, secondary to polyp. 1. Gastrointestinal (GI) bleed. The patient did have a bleeding polyp which was treated with colonoscopy by Dr. Heath. He did have shock liver. He received a total of eight units of packed red blood cells (PRBCs). He did present in severe sepsis. His bleeding did resolve, and he was eventually restarted on his anticoagulation for atrial fibrillation. 2. Severe sepsis. The patient did present with severe sepsis and was on antibiotics. He was seen in consultation by Dr. Burns following hemodynamic stabilization and resolution of his GI bleed. He was taken to the operating room and did undergo a left below-knee amputation (BKA). He tolerated the procedure well and worked with physical therapy following this. 3. Right lower extremity chronic wounds. The patient was seen by Dr. Dela Cruz who is concerned about the slow progress and may be related to his poor vascular function. He was seen by his vascular surgeon this week. He was recommending an outpatient angiogram in [place] within the next three weeks. The patient is to followup with vascular surgery and Dr. Dela Cruz. 4. End-stage renal disease on hemodialysis. The patient was continued on his regular schedule of hemodialysis. He will have outpatient hemodialysis tomorrow. His schedule is Wednesday, Wednesday, and Wednesday. Nephrology's help was greatly appreciated. 5. Anemia, stable and chronic at this point. 6. Also, peripheral vascular disease. As outlined above, the patient is also on Neurontin for some neuroplastic pain. 7. Atrial fibrillation. The patient is rate controlled with diltiazem and digoxin. He is anticoagulated with Eliquis. 8. Diastolic congestive heart failure and cor pulmonale. The patient's volume status is optimized by hemodialysis. His blood pressure is controlled with diltiazem. 9. Thrombocytopenia secondary to medication adverse effect. It did resolve during his hospital stay. 10. Chronic pain. The patient is on a Lidoderm patch which is improving his symptoms. 11. Prostate cancer. The patient is status post radiation therapy 10 years ago. 12. Deep venous thrombosis (DVT) prophylaxis. The patient is therapeutically anticoagulated with Eliquis. DISPOSITION: The patient is being discharged to [facility]. His status at this time is significantly improved. He is to followup with his doctor in [place] as scheduled. Followup with his primary care physician (PCP) in seven days. Followup with Dr. Dela Cruz of podiatry within two weeks. His activity is out of bed with assist. His diet is renal consistent carbohydrate. He is to return to the emergency room (ER) if his symptoms worsen. MEDICATIONS AT TIME OF DISCHARGE: - gabapentin 100 mg very morning - lidocaine 5% patch transdermally daily - [place] nasal spray 0.65% two sprays nasally twice a day - Eliquis 2.5 mg twice a day - aspirin 325 mg daily - vitamin D 1000 units daily - digoxin 0.125 mg three times a day Wednesday, Wednesday, Wednesday - diltiazem 180 mg daily - vitamin B complex Greater than 30 minutes were spent organizing disposition.
[2016-11-19] MEDS: **NOTE PATIENT COMMENT** MISC XX SCH (20:20)
[2016-11-20] MEDS: BENZONATATE 100 MG CAP PO SCH (07:55)
[2016-11-20] MEDS: SODIUM CHLORIDE NASAL 0.65% SPRAY BTL (OCEAN) SCH (07:55)
[2016-11-20] MEDS: POLYVINYL ALCOHOL OPHTH SOLN 15 ML(LIQUITEARS) OU SCH (07:55)
[2016-11-20 07:56] VITALS: BP 123/59
[2016-11-20] MEDS: diltiaZEM **CD** 180 MG CAP PO SCH (07:56)
[2016-11-20] MEDS: APIXABAN 2.5 MG TAB (ELIQUIS) PO SCH (07:56)
[2016-11-20] MEDS: SENOKOT S TAB PO SCH (07:56)
[2016-11-20] MEDS: GABAPENTIN 100 MG CAP PO SCH (07:56)
[2016-11-20] MEDS: DOCUSATE SODIUM 100 MG CAP PO SCH (07:56)
[2016-11-20] MEDS: guaiFENesin ER 600 MG TAB PO SCH (07:56)
[2016-11-20] MEDS: LIDOCAINE 5% (LIDODERM) PATCH TD SCH (07:57)
[2016-11-20] MEDS: ACETAMINOPHEN TAB 650MG DOSE (2X325MG) PO PRN (07:57)
[2016-11-20] MEDS: LACTIC ACID 12% LOTION 225 GM BTL TOP SCH (07:59)
[2016-11-20 08:03] VITALS: BP 123/59
== END 2016-11-20 08:55 | disposition short-term general hospital (02) | DRG 853 ==
LOC: M ICU 16:04 → M PCU 08-30 13:18 → M MSPAV 09-09 12:43 → M MS5PR 09-17 16:21
PROVIDERS: ADMIT Internal Medicine; ATTEND Internal Medicine
PROC: 30233N1 Transfusion of Nonautologous Red Blood Cells into Peripheral Vein, Percutaneous Approach (ICD-10-PCS; 2016-08-28)
PROC: 0DB78ZZ Excision of Stomach, Pylorus, Via Natural or Artificial Opening Endoscopic (ICD-10-PCS; 2016-08-28)
PROC: 0DBK4ZZ Excision of Ascending Colon, Percutaneous Endoscopic Approach (ICD-10-PCS; 2016-09-01)
PROC: 0Y6J0Z2 Detachment at Left Lower Leg, Mid, Open Approach (ICD-10-PCS; 2016-09-10)
PROC: 0JBQ0ZZ Excision of Right Foot Subcutaneous Tissue and Fascia, Open Approach (ICD-10-PCS; principal; 2016-10-12)
PROC: 0JBQ0ZZ Excision of Right Foot Subcutaneous Tissue and Fascia, Open Approach (ICD-10-PCS; 2016-10-20)
PROC: 0JBQ0ZZ Excision of Right Foot Subcutaneous Tissue and Fascia, Open Approach (ICD-10-PCS; 2016-10-29)
DX: A41.9 Sepsis, unspecified organism (principal); N18.6 End stage renal disease; K72.00 Acute and subacute hepatic failure without coma; I50.33 Acute on chronic diastolic (congestive) heart failure; K92.1 Melena; I70.262 Atherosclerosis of native arteries of extremities with gangrene, left leg; D62 Acute posthemorrhagic anemia; I47.2 Ventricular tachycardia; I13.2 Hypertensive heart and chronic kidney disease with heart failure and with stage 5 chronic kidney disease, or end stage renal disease; L97.419 Non-pressure chronic ulcer of right heel and midfoot with unspecified severity; R65.20 Severe sepsis without septic shock; K62.7 Radiation proctitis; I48.91 Unspecified atrial fibrillation; D69.6 Thrombocytopenia, unspecified; F17.200 Nicotine dependence, unspecified, uncomplicated; I27.81 Cor pulmonale (chronic); Z79.899 Other long term (current) drug therapy; Z79.82 Long term (current) use of aspirin; D12.2 Benign neoplasm of ascending colon; K31.7 Polyp of stomach and duodenum; D63.1 Anemia in chronic kidney disease; L97.519 Non-pressure chronic ulcer of other part of right foot with unspecified severity; Z85.46 Personal history of malignant neoplasm of prostate; H66.93 Otitis media, unspecified, bilateral; Z88.0 Allergy status to penicillin; K64.9 Unspecified hemorrhoids; I95.9 Hypotension, unspecified

== ENCOUNTER 2016-12-18 23:09 | Inpatient (IN) | payer MEDICARE ==
[~2016-12-18] VITALS: Ht 188 cm; Wt 88.7 kg
[~2016-12-18 23:09] MED LIST changes: +ASPI325T PO; +DILT0.05 PO; -ECOT81TA2 PO; +ECOT81TA5 PO; +GABA-279 PO; +HYDR-3713 PO; +LIDO5TD TD; +NEPHTAB PO; +OCEA0.654; +VITA100066 PO
[2016-12-19] VITALS (23 sets, daily range): BP systolic 84–144; BP diastolic 50–91
[2016-12-19] MEDS ORDERED: ONDANSETRON 4MG/2ML VIAL (J2405) IV PRN (05:15)
[2016-12-19 05:43] LABS: MEAN CORPUSCULAR HEMOGLOBIN 21.5 pg (27.0-33.0); MEAN CORPUSCULAR HGB CONC 28.4 g/dl (32.0-36.5); MEAN CORPUSCULAR VOLUME 75.7 fl (80.0-96.0); PLATELET COUNT, AUTOMATED 154 k/mm3 (150-450); RED CELL DISTRIBUTION WIDTH 17.7 % (11.5-14.5); WHITE BLOOD COUNT 8.5 K/mm3 (4.0-10.0)
--- NOTE | 2016-12-19 05:44 | HPEPDOC ---
Medical History and Physical Date of Admission Dec 19, 2016 at 03:53 History and Physical CHIEF COMPLAINT: Fever HISTORY OF PRESENT ILLNESS: Patient is a 66-year-old male with end-stage renal disease, diastolic congestive heart failure, peripheral vascular disease and atrial fibrillation who presents today as a direct admit from [facility] after having fevers at dialysis yesterday. Patient says that he had some vomiting on night. He was found to have a fever yesterday during dialysis. He was seen and evaluated at [facility] emergency department and was then transferred to [facility] so that he can have dialysis along with his evaluation and treatment for fever. On presentation to [facility] patient was found to be in atrial fibrillation and febrile. He had a chest x-ray which did not show any acute disease. He was started on vancomycin, Levaquin and IV fluids and then transferred to [facility]. ALLERGIES: Penicillin, heparin (HIT) MEDICATIONS: Gabapentin 300 mg by mouth daily at bedtime Aspirin 325 mg by mouth daily Nephro-Keely 1 tablet by mouth daily Eliquis 2.5 mg by mouth twice a day Vitamin D3 1 tablet daily Digoxin 125 mcg by mouth every Wednesday, Wednesday and Wednesday Omeprazole 20 mg by mouth daily Diltiazem 180 mg by mouth daily Sevelamer 800 mg by mouth 3 times a day PAST MEDICAL HISTORY: End-stage renal disease on dialysis, chronic anemia, atrial fibrillation, cataract, hypertension, peripheral vascular disease, history of prostate cancer PAST SURGICAL HISTORY: AV fistula left arm, cataract surgery, left great toe amputation SOCIAL HISTORY: Patient is a former smoker, he says he smoked for approximately 50 years. He denies any alcohol or recreational drug use. Patient says that he lives at home with his CODE STATUS: Full code REVIEW OF SYSTEMS: Constitutional: Positive for fevers and chills HEENT: Head: denies headaches, dizziness, light-headedness. Eyes: Positive for chronic blurry vision (cataract). Ears: Positive for recent external ear infection, ear itching. Nose: Positive for occasional rhinorrhea, denies sinus pain or pressure. Throat: denies sore throat, cough, difficulty swallowing Cardiovascular: denies chest discomfort/pain, palpitations Respiratory: denies shortness of breath, difficulty breathing Gastrointestinal: Positive for vomiting night, denies diarrhea, constipation, abdominal pain, melena, hematochezia : Patient no longer urinates (end-stage renal disease on dialysis) Musculoskeletal: Positive for chronic pain in the left shoulder, fingers ( arthritis) Neurological: Positive for numbness in fingers Lymphatics: denies palpable lymph nodes or swollen glands PHYSICAL EXAMINATION: Vitals: Temperature 99.0, pulse 114, respiratory rate 22, blood pressure 111/53 , pulse ox 100% on room air General: Patient awake in bed, alert and oriented, verbal and able to answer questions appropriately. He does not appear to be in any acute distress HEENT: Head: normocephalic, atraumatic. Eyes: pupils equally reactive to light , conjunctiva are pink, sclera are nonicteric. Ears: tympanic membranes visible , light reflex present bilaterally without erythema. Throat: buccal mucosa is pink and moist with no lesions in the oropharynx Respiratory: clear to auscultation bilaterally with no wheezes, rales, or rhonchi. Cardiovascular: Regularly irregular rate and rhythm, 3/6 murmur heard throughout the precordium. No rubs, clicks or gallops Abdomen: soft, nontender, nondistended, no hepatosplenomegaly appreciated. Bowel sounds present. Extremities: 5/5 strength in upper and lower extremities bilaterally, left lower extremity status post BKA, no swelling in either lower extremity bilaterally Neurological: sensation intact and symmetrical in upper and lower extremities bilaterally Lymphatics: no palpable lymph nodes, swollen glands Integumentary: Positive for ulcers in right lower extremity, third digit of right foot appears necrotic Vascular: Radial pulse palpable in right upper extremity, left upper extremity contains AV fistula LABORATORY DATA: From [facility] CBC: White blood cells 13.1, H&H 8.4/28.9, platelets 188 Chemistry: Sodium 140, potassium 5.2, chloride 92, bicarbonate 85, BUN 43, creatinine 4.40, glucose 161 Liver profile AST 47, ALT 52, alkaline phosphatase 254, total protein 8.1, albumin is 3.9, total bilirubin 0.5 Lactic acid 2.8, repeat 1.1 PT 12.0 INR 1.1, PTT 35.5 MICROBOIOLOGY: From [facility] Respiratory panel negative ELECTROCARDIOGRAM: From [facility] Atrial fibrillation with rapid ventricular response at rate of 134 bpm ASSESSMENT: Patient is a 66-year-old male, end-stage renal disease with fevers. Patient will be admitted to ICU for sepsis workup PLAN: #1: Fever: Admit patient to ICU under care of Dr. Liu. Patient will continue on vancomycin and Levaquin. Patient will be further evaluated with sputum culture, blood cultures 2, chest CT #2: End-stage renal disease on hemodialysis: Nephrology will be consulted for hemodialysis management. Order placed for home dose of gabapentin, Nephro-Keely, sevelamer #3: Atrial fibrillation: Patient will continue on home dose digoxin---will hold off on ASA, and Eliquis at this time given Anemia #4: Hypertension: Order placed for home dose of diltiazem My preceptor for this patient encounter was physically present in the building during the encounter and was fully available. As needed, all aspects of the patient interview, examination, medical decision making process, and medical care plan development were reviewed and approved by the preceptor. Preceptor is aware and concurs with the plan as stated in the body of this note and will attest to such by his/her cosignature. Vital Signs Temperature 99.0, pulse 114, respiratory rate 22, blood pressure 111/53, pulse ox 100% on room air Home Medications Scheduled (Saline Nasal [place]) 0.65 % Spr 2 SPRAYS NA BID (Meggan-Keely) 1 Tab Tab 1 TAB PO QHS Apixaban Base (Eliquis) 2.5 Mg Tab 2.5 MG PO BID Aspirin (Aspirin) 325 Mg Tab 325 MG PO DAILY Cholecalciferol (Vitamin D) 1,000 Unit Tab 1,000 UNIT PO DAILY Ciprofloxacin HCl (Cetraxal) 0.2 % Beckie 4 DROP AU BID Digoxin (Digoxin) 0.125 Mg Tab 0.125 MG PO 3XW GIVEN @ 1800 ON MON, WED, FRI Diltiazem HCl (Diltiazem HCl ER) 180 Mg Tab 180 MG PO DAILY Docusate Sodium (Docusate Sodium) 100 Mg Cap 100 MG PO TID Gabapentin (Gabapentin) 300 Mg Cap 300 MG PO DAILY Sevelamer Carbonate (Renvela) 800 Mg Tab 800 MG PO TID Scheduled PRN (Enema) 1 Angelika Angelika 1 ANGELIKA [place] DAILY PRN PRN CONSTIPATION Acetaminophen (Acetaminophen) 325 Mg Tab 650 MG PO Q4H PRN PRN PAIN / FEVER Bisacodyl (Bisacodyl) 10 Mg Sup 10 MG [place] DAILY PRN PRN CONSTIPATION Glucagon Rdna (Glucagon Emergency Kit) 1 Mg Kit 1 MG SC PRN PRN PRN LOW BLOOD SUGAR Milk Of Magnesia (Milk of Magnesia) 1,200 Mg/15 Ml Emily 30 ML PO DAILY PRN PRN CONSTIPATION Allergies Coded Allergies: Penicillins (Verified Allergy, Mild, RASH, 08/28/16) Heparin (Verified Adverse Reaction, Severe, HIT - 09/2016, 09/10/16) LANCE MOSELEY DO Dec 19, 2016 05:44 CHAYITO RAMOS MD Dec 19, 2016 06:47
[2016-12-19] MEDS ORDERED: VANCOMYCIN HCL 1,000 MG, VIAL MATE ADAPTER 1 EACH in D5W 250 ML IV SCH (06:00)
[2016-12-19 06:04] LABS: MAGNESIUM LEVEL 2.3 MG/DL (1.8-2.4)
[2016-12-19 06:05] LABS: ALBUMIN 2.3 GM/DL (3.2-5.2); CALCIUM LEVEL 9.1 MG/DL (8.8-10.2); CREATININE FOR GFR 5.65 MG/DL (0.70-1.30); PHOSPHORUS LEVEL 3.7 MG/DL (2.5-4.9); POTASSIUM SERUM 4.9 MEQ/L (3.5-5.1)
--- NOTE | 2016-12-19 06:20 | REPUSA ---
CLINICAL HISTORY: Fever. TECHNIQUE: Multiple axial CT images were obtained through the thorax without IV contrast material. COMMENTS: Pulmonary emphysema. Mild central pulmonary venous congestion. There is no evidence of pleural or parenchymal-based mass. There are no pleural effusions. There is n o evidence of hilar or mediastinal lymphadenopathy. The heart and great vessels are within normal galloway its. The visualized portions of the liver are of uniform attenuation without mass or defect. There is no i ntra or extrahepatic biliary ductal dilatation. The spleen is unremarkable. The visualized pancreas i s of normal contour and attenuation characteristics. There is no evidence of adrenal mass. The visual ized portions of the kidneys present no abnormalities. The bony structures are free of lytic or blastic lesions. Renal atrophy. Layering sludge in the gallbladder. Right PICC line is in good position with its tip in the superior vena cava. IMPRESSION: Layering sludge in the gallbladder. Pulmonary emphysema. No evidence of acute thoracic pathology. Mild central pulmonary venous congestion. Thank you for your kind referral of this patient.
--- NOTE | 2016-12-19 06:24 | PHACANCOPD ---
PHARMACY VANCOMYCIN DOSING Pt Demographics Demographics Patient Age:66 , Weight:88.500 , Gender: male Adjusted Body Weight Date: 12/19/16, Adjusted Body Weight: [84.72] Kg Vancomycin Vancomycin indication: FEVER/SEPSIS Vancomycin Target Ranges: 15-20 mcg/ml Vancomycin Load Y/N: No Load Dose Date Time Vancomycin Load Dose: Date: Time: Vancomycin Dose Date: 12/19/16. Current Vancomycin Dose: Intermittent Dosing?: Yes Labs Labs Laboratory Tests 12/19/16 05:29 Anion Gap 10, Red Blood Count 3.64 L, Mean Corpuscular Volume 75.7 L, Mean Corpuscular Hemoglobin 21.5 L, Mean Corpuscular Hemoglobin Concent 28.4 L, Red Cell Distribution Width 17.7 H Micro Microbiology 12/19/16 Blood Culture, Received Pending 12/19/16 MRSA Screen, Received Pending Creatinine Clearance Date:12/19/16. Creatinine Clearance: [14]. Pending Labs Random vanco lelel ordered for 12/19 1100 Assessment and Plan Maintaining Current Dose?: Yes Reason for dose change: No Dose Change Pharmacist Note Pharmacist Note Date: 12/19/16. Pharmacist note:patient transferred from [facility] :fever/poss sepsis : received lavaquin 500mg IV x1 and Vancomycin 1 gm IV x! at [facility]: will draw a random Vanco level this am and plan dosing regimen accordingly [facility] Dec 19, 2016 06:24
[2016-12-19] MEDS ORDERED: VANCOMYCIN INTERMITTENT/PULSE DOSING BY CLINICAL PHARMACIST PER DOSING PROTOCOL XX SCH (06:30)
[2016-12-19] MEDS ORDERED: SODIUM CHLORIDE 0.9% 1000 ML IV ONE (07:00)
[2016-12-19] MEDS ORDERED: LEVA500T PO (07:03)
[2016-12-19] MEDS ORDERED: METO50TA2 PO (07:03)
[2016-12-19] MEDS ORDERED: GABA300C3 PO (07:03)
[2016-12-19] MEDS ORDERED: OMEP20TA PO (07:03)
[2016-12-19] MEDS ORDERED: RENV2TAB PO (07:03)
[2016-12-19] MEDS ORDERED: CIPRHCOTIC AU (07:03)
[2016-12-19 07:06] LABS: ALBUMIN 2.4 GM/DL (3.2-5.2); ALBUMIN/GLOBULIN RATIO 0.6 (1.00-1.93); BILIRUBIN,DIRECT 0.3 MG/DL (0.0-0.2); BILIRUBIN,TOTAL 0.6 MG/DL (0.2-1.0); TOTAL PROTEIN 6.4 GM/DL (6.4-8.2)
[2016-12-19 07:31] LABS: ERYTHROCYTE SEDIMENTATION RATE > 140 mm/hr (0-20)
[2016-12-19] MEDS ORDERED: [UNRECOGNIZED DRUG - CODE] AU (08:18)
[2016-12-19] MEDS ORDERED: ACET-654 PO (08:30)
[2016-12-19] MEDS ORDERED: RENATAB5 PO (08:30)
[2016-12-19] MEDS ORDERED: GLUC1KIT SC (08:30)
[2016-12-19] MEDS ORDERED: SALI0.653 (08:30)
[2016-12-19] MEDS ORDERED: ENEM1ENE4 PR (08:30)
[2016-12-19] MEDS ORDERED: BISA10SU4 PR (08:30)
[2016-12-19] MEDS ORDERED: DOCU100C PO (08:30)
[2016-12-19] MEDS ORDERED: MILKSUS PO (08:30)
[2016-12-19] MEDS: ACETAMINOPHEN TAB 650MG DOSE (2X325MG) PO PRN ×2 (08:34→19:35)
[2016-12-19] MEDS: VITAMIN D 1,000 INTERNATIONAL UNITS TABLET PO SCH (08:34)
[2016-12-19] MEDS: NEPHRO-VIT TAB (NEPHROCAPS) PO SCH (08:35)
[2016-12-19] MEDS: OMEPRAZOLE 20 MG CAP PO SCH (08:35)
[2016-12-19] MEDS: diltiaZEM **CD** 180 MG CAP PO SCH (08:35)
[2016-12-19] MEDS ORDERED: APIXABAN 2.5 MG TAB (ELIQUIS) PO SCH (09:00)
[2016-12-19] MEDS ORDERED: ASPIRIN 325 MG TAB PO SCH (09:00)
[2016-12-19] MEDS: (RENVELA) SEVELAMER **CARBONate** 800 MG TAB PO SCH ×3 (09:45→19:45)
--- NOTE | 2016-12-19 09:46 | REP ---
RIGHT UPPER QUADRANT ULTRASOUND: 12/19/2016. Clinical history: Biliary sludge. Possible cholangitis. Comparison: Complete abdominal ultrasound 08/29/2016. Sonographic evaluation of the right upper quadrant shows the liver homogeneous in echotexture, it has a slightly lobulated contour suggesting some chronic liver disease, however its echogenicity is unremarkable. There is no discrete mass, cyst or abnormal calcification. I see no biliary dilatation. The gallbladder measures 6.4 cm long by 3.1 cm AP. There is a thickened wall up to 4 mm. I do not see pericholecystic fluid. Biliary sludge is seen. No echogenic stones with shadowing. Common duct is 2.6 mm without dilatation or filling defect. There was no sonographic Ball's sign. Pancreas portions seen were unremarkable but the tail obscured by gas shadowing. On the right kidney is 14.7 x 5.9 x 7 cm. There are numerous cortical cyst and a large renal pelvis either parapelvic cyst or some degree of hydronephrosis with UPJ obstruction cannot be defined by this study, but it is similar to its appearance on the chest CT earlier this date. The renal cortex is thinned and echogenic. Impression: 1. Thickened gallbladder wall without pericholecystic fluid. Sludge is visible without stones. No sonographic Ball's sign. The gallbladder is not abnormally distended. 2. Chronic liver changes consistent with cirrhosis with a lobulated margin of the liver. No focal mass or biliary dilatation. 3. No evidence of ascites. 4. Pancreas portion seen was unremarkable, the tail obscured. 5. Multiple renal cysts. The largest in the parapelvic region of the sinus. Differential consideration would be a UPJ obstruction but the appearance similar to that seen on CT earlier today. Signed by Clemente Kay MD 12/19/2016 07:27 P
[2016-12-19] MEDS ORDERED: DIGOXIN INJ 0.5 MG/2 ML AMP (J1160) IV STA (10:19)
[2016-12-19 11:42] LABS: DIGOXIN LEVEL 1.3 NG/ML (0.5-2.0); VANCOMYCIN RANDOM 13.3 UG/ML
--- NOTE | 2016-12-19 13:09 | CR ---
DATE OF CONSULTATION: 12/19/2016 REQUESTING PHYSICIAN: Dr. Ghada Liu CONSULTING PHYSICIAN: Dr. Abraham REASON FOR CONSULTATION: Management of end-stage renal disease and hemodialysis. CHIEF COMPLAINT: The patient was transferred from [facility] yesterday because of fevers during dialysis, tachycardia and further management of this patient with right foot gangrene and need of hemodialysis. HISTORY OF THE PRESENT ILLNESS: Mr. Nicho Fernandez is a 66-year-old male with past medical history of end-stage renal disease, on hemodialysis, every Wednesday, Wednesday, Wednesday, well known to nephrology service from outpatient [facility] in [place]. He is a patient of Dr. Jean-Baptiste, and we were also following up this patient during a recent prolonged inpatient stay. As reported by the [facility], the patient was having fever spikes during dialysis yesterday, his blood pressure was dropping and he was tachycardic. He only got 2 hours of hemodialysis. His cultures were drawn, and he was sent to [facility] Emergency Room where he had an episode of vomiting as well. Over there in the ER, he was also found to be in atrial fibrillation with rapid ventricular rate (RVR). The patient was given first dose of IV antibiotics and he was transferred to [facility] intensive care unit (ICU) for further management. The patient was examined today morning in the ICU, he was eating his breakfast. He continues to be in atrial fibrillation with RVR. At this time, nephrology service has been called for further management of end-stage renal disease and hemodialysis. PAST MEDICAL HISTORY: End-stage renal disease, on hemodialysis. Anemia secondary to end-stage renal disease. Atrial fibrillation. Hypertension. Peripheral vascular disease, status post left below-knee amputation. History of prostate cancer in the past. PAST SURGICAL HISTORY: Status post left forearm AV fistula placement. Status post left below-knee amputation. Status post cataract surgery. ALLERGIES: The patient is allergic to HEPARIN and PENICILLINS. MEDICATIONS: The patient's home medications include: - gabapentin 300 mg by mouth daily - aspirin 325 mg daily - Nephro-Keely one tablet daily - Eliquis 2.5 mg by mouth twice a day - vitamin D one tablet daily - Digoxin 0.125 mg by mouth on Wednesday, Wednesday, Wednesday - omeprazole 20 mg by mouth daily - Cardizem 180 mg by mouth daily - Renvela one tablet by mouth three times a day FAMILY HISTORY: No significant family history of end-stage renal disease requiring hemodialysis. SOCIAL HISTORY: The patient denies any smoking at this time. He is a former smoker. He denies any alcohol abuse or recreational drug abuse and the patient was recently transferred to snf after a prolonged hospital stay. REVIEW OF SYSTEMS: CONSTITUTIONAL: The patient reports fever, chills and weakness. Eyes: He denies any recent blurry vision, but he has a history of cataracts. ENT: He denies any dysphagia, odynophagia, any ear discharge. CARDIOVASCULAR: He denies any chest pain, chest discomfort or palpitations. RESPIRATORY: He denies any shortness of breath, cough or wheezing. GASTROINTESTINAL: The patient had one episode of vomiting yesterday. He denies any constipation, diarrhea or abdominal pain. GENITOURINARY: The patient has a history of end-stage renal disease and is anuric. MUSCULOSKELETAL: The patient has a history of a left below-knee amputation, and he has peripheral vascular disease and ulcers in the right foot as well. CENTRAL NERVOUS SYSTEM: The patient denies any history of strokes or seizures but he does report numbness of the fingers. HEMATOLOGICAL/ONCOLOGICAL: He reports anemia secondary to end-stage renal disease and history of CA of prostate in the past. PSYCHIATRIC: He denies any depression or anxiety. All other review of systems was negative. PHYSICAL EXAMINATION: GENERAL: The patient is awake, alert, oriented times three, sitting in the bed, actually eating his breakfast this morning. VITAL SIGNS: Temperature is 98.7 degrees Fahrenheit. Blood pressure is 119/56, pulse is 115, respiratory rate of 16, saturating 98% on room air. INTAKE/OUTPUT: Urine output is not recorded. Weight on the bed scale is 88.5 kg. HEAD AND NECK EXAM: Pupils equally round and reactive to light. The patient has a squint. Mucous membranes are moist. Neck is supple. There is no jugular venous distention (JVD). The patient has a right internal jugular (IJ) triple lumen catheter. CARDIOVASCULAR: S1, S2. Irregular heart rate and tachycardia. No murmur, rub or gallop. RESPIRATORY: Chest is clear to auscultation bilaterally. Bilateral equal air entry. No rales or rhonchi. ABDOMEN: Soft. Positive bowel sounds. Nontender. No ascites. No organomegaly. EXTREMITIES: The patient has a left leg below-knee amputation. His stump is clean and dry. The patient has dry gangrene of the right third toe and decreased pulses in the right lower extremity. CENTRAL NERVOUS SYSTEM: No focal neurological deficit. Otherwise, the patient follows commands and has 5/5 power in the bilateral upper extremities. LYMPH NODES: The patient does not have any cervical, axillary or inguinal lymphadenopathy. SKIN: The patient has ulcerations in the right foot toes, and he has gangrene of the right third toe. PSYCHIATRIC: Normal mood and affect. LAB REVIEW: CBC showed a WBC of 8.5, hemoglobin 7.8, platelets are 154. BMP showed sodium 137, potassium 4.9, chloride 97, bicarbonate 30, BUN is 52, creatinine is 5.6, phosphorus is 3.7, albumin is 2.3, C-reactive protein is 17.6. Vancomycin and digoxin levels are pending. Microbiology: Sputum cultures, blood cultures are pending. IMAGING: A CAT scan of the chest was done yesterday, which showed pulmonary emphysema. No evidence of acute thoracic pathology. There was layering sludge in the gallbladder. Ultrasound of the gallbladder was done today, which showed thickened gallbladder wall without pericholecystic fluid. There was sludge. No stones. No sonographic Ball's sign. Chronic liver changes consistent with cirrhosis of the liver with lobulated margins. No evidence of ascites. CURRENT MEDICATIONS: The patient's current inpatient medications include: - Levaquin 250 mg IV ever 48 hours - He was given one dose of vancomycin before transfer to [facility] - His Eliquis and aspirin is on hold because of anemia - He is on digoxin 0.125 mg by mouth on Wednesday, Wednesday, Wednesday - He is on diltiazem 180 mg by mouth daily - gabapentin 300 mg nightly - One liter of IV bolus 500 mL was given today - omeprazole 20 mg by mouth daily - Zofran 4 mg IV every 6 hours as needed for nausea - Renvela 800 mg by mouth with meals - vitamin B complex - vitamin D ASSESSMENT: A 66-year-old male with past medical history of end-stage renal disease, on hemodialysis, severe peripheral vascular disease, status post left below-knee amputation and now with right third toe gangrene, admitted to ICU at this time for sepsis, most likely secondary to right toe gangrene and atrial fibrillation with rapid ventricular rate. Nephrology service following the patient for management of end-stage renal disease. PLAN: 1. End-stage renal disease. On hemodialysis. The patient got about 2 hours of hemodialysis yesterday. There is no urgent need of hemodialysis again today. We shall continue to monitor the patient for any need of hemodialysis urgently; otherwise his regular scheduled hemodialysis session will be on 12/21/2016. 2. Sepsis. Most likely secondary to right third toe gangrene. The patient has already been given vancomycin intravenously (IV) and IV Levaquin. He is allergic to penicillins. Dr. Dela Cruz is going to come and evaluate the patient's right third toe for possible amputation. The patient was already seen by vascular surgeons in [place] and as reported by patient and his , there is no further intervention offered by vascular surgery in [place]. 3. Atrial fibrillation with rapid ventricular rate. Continue current dose of Cardizem. The patient was given an extra dose of digoxin 0.125 mg IV for rapid ventricular rate. The rest of the management is as per primary team. His Eliquis and aspirin is on hold because of anemia. 4. Anemia in end-stage renal disease. Primary team is going to give one unit of packed red blood cells transfusion to the patient. Avoid giving more than one unit packed red blood cells to this patient who is otherwise anuric and there is a risk of fluid overload. If the patient needs further blood transfusion, he will be given it during hemodialysis. 5. Hypertension. The patient's blood pressure is acceptable at this time, and his heart rate and blood pressure is controlled with Cardizem. 6. Chronic kidney disease mineral bone disease. Continue current dose of Renvela one gram by mouth three times a day with meals. Thank you for involving us in the care of this patient. We shall be happy to follow the patient along with you tomorrow morning. Plan of care was discussed with the patient's RN at the bedside and with the hospitalist team, Dr. Ghada Liu.
--- NOTE | 2016-12-19 16:03 | IPN ---
DATE: 12/19/2016 Patient was seen and examined this morning. Most likely cause of patient's fever is a right lower extremity right foot and toe gangrene. Patient is continued on vancomycin dosed by pharmacy. Dr. Dela Cruz has been consulted for amputation, debridement. He is currently on broad-spectrum antibiotics until cultures are obtained. I have also discussed his code status this morning. He does not want to be mechanically ventilated but wants a trial of cardiopulmonary resuscitation (CPR) . Patient's , at the bedside, agrees with patient's decision. MARIA ALEJANDRA
[2016-12-19] MEDS ORDERED: VANCOMYCIN HCL 1,000 MG, VIAL MATE ADAPTER 1 EACH in D5W 250 ML IV ONE (20:00)
[2016-12-19] MEDS: GABAPENTIN 300 MG CAP PO SCH (22:02)
[2016-12-20] VITALS (16 sets, daily range): BP systolic 98–132; BP diastolic 50–85
[2016-12-20] MEDS: ACETAMINOPHEN TAB 650MG DOSE (2X325MG) PO PRN ×2 (04:17→22:11)
[2016-12-20 05:52] LABS: MEAN CORPUSCULAR HEMOGLOBIN 22.8 pg (27.0-33.0); MEAN CORPUSCULAR HGB CONC 30.1 g/dl (32.0-36.5); MEAN CORPUSCULAR VOLUME 75.8 fl (80.0-96.0); WHITE BLOOD COUNT 8.9 K/mm3 (4.0-10.0)
[2016-12-20 06:27] LABS: ALBUMIN 2.4 GM/DL (3.2-5.2); CALCIUM LEVEL 8.7 MG/DL (8.8-10.2); CREATININE FOR GFR 7.53 MG/DL (0.70-1.30); GLOMERULAR FILTRATION RATE 9.3 (>49); MAGNESIUM LEVEL 2.4 MG/DL (1.8-2.4)
[2016-12-20 06:57] LABS: PHOSPHORUS LEVEL 5.2 MG/DL (2.5-4.9); POTASSIUM SERUM 5.9 MEQ/L (3.5-5.1)
[2016-12-20] MEDS: (RENVELA) SEVELAMER **CARBONate** 800 MG TAB PO SCH ×3 (08:11→17:02)
[2016-12-20] MEDS: diltiaZEM **CD** 180 MG CAP PO SCH (08:11)
[2016-12-20] MEDS: NEPHRO-VIT TAB (NEPHROCAPS) PO SCH (08:11)
[2016-12-20] MEDS: VITAMIN D 1,000 INTERNATIONAL UNITS TABLET PO SCH (08:11)
[2016-12-20] MEDS: OMEPRAZOLE 20 MG CAP PO SCH (08:11)
[2016-12-20] MEDS ORDERED: ACETAMINOPHEN TAB 650MG DOSE (2X325MG) PO ONE (09:00)
[2016-12-20] MEDS: METOPROLOL TART 25 MG TABLET PO SCH ×3 (09:08→17:01)
[2016-12-20 09:36] LABS: DIGOXIN LEVEL 1.8 NG/ML (0.5-2.0)
[2016-12-20] MEDS ORDERED: SOD POLYSTYRENE SULFONATE SUSP 15 GM/60 ML UD PO ONE (10:30)
[2016-12-20] MEDS ORDERED: LACTULOSE 20 GM/30 ML SYRUP UD PO ONE (10:30)
[2016-12-20] MEDS: CHECK TO SEE IF PATIENT IS RECEIVING DIALYSIS TODAY AND REFER TO THE VANCOMYCIN ORDER XX SCH (16:00)
--- NOTE | 2016-12-20 17:08 | IPN ---
DATE: 12/20/2016 The patient is seen and examined at bedside. Chart has been reviewed. The patient has been having recurrent fevers, 101.2 temperature, despite vancomycin and Levaquin. At this time, the patient's atrial fibrillation is slightly improved. Current rate is about 93 to 106 on digoxin and metoprolol. Digoxin level is 1.8. The patient has no new complaints this morning. Denies chest pain, pressure, tightness, palpitations, lightheadedness, or shortness of breath. VITAL SIGNS: Maximum temperature (t-max) 101.2, pulse 109 and 106 at bedside, peak pulse was 123, atrial fibrillation, respiratory rate of 20, blood pressure 132/58, 98% on room air. GENERAL : The patient is conversing, awake, and alert to person and place, appropriate. LUNGS: Diminished, but clear to auscultation. HEART: S1, S2. Irregularly irregular. ABDOMEN: Soft, nontender, nondistended. EXTREMITIES: The patient has left below the knee amputation, left forearm AV fistula, right lower extremity has diminished pulses and ulcerations right foot toes and gangrene of the right third toe. LABORATORY DATA: White count 8.9, hemoglobin 8.3, hematocrit 27, platelet count of 143. Sed rate of greater than 140. Sodium 135, potassium 5.9, chloride 97, bicarbonate 28, BUN 72, creatinine 7.5, glucose of 109, C-reactive protein of 17.6. Microbiology: Blood culture and methicillin resistant Staphylococcus aureus (MRSA) screen are all negative. IMAGING STUDIES: Chest CT with layering of pulmonary emphysema, no evidence of acute thoracic pathology, mild central pulmonary venous congestion. Gallbladder ultrasound showed thickened gallbladder. Sludge is visible. No sonographic Ball's sign. Gallbladder is not distended. Chronic liver disease with cirrhosis, margin in the liver. ASSESSMENT AND PLAN: This is a 66-year-old male with a history of liver cirrhosis by imaging, end stage renal disease on hemodialysis every Wednesday, Wednesday and Wednesday, anemia, atrial fibrillation, hypertension, peripheral vascular disease with left below the knee amputation, left forearm AV fistula, prostate cancer, hypertension, who presents with a fever during hemodialysis. Blood cultures negative. The patient was placed on vancomycin and Levaquin with a right third toe gangrene, followed and debrided by Dr. Dela Cruz, podiatry, as an outpatient. Current issues: 1. Sepsis, currently on vancomycin and Levaquin. Awaiting evaluation by podiatry. We have left a message, both intensive care unit (ICU) nurse and myself with the podiatry service, [phone] Manuel Dela Cruz with no response. Another message was sent this morning. We have also called his cellphone with no return phone call to us, so we have paged him overhead due to the need for immediate evaluation of the patient's gangrenous toe and recurrent fevers, despite antibiotics. We have asked Dr. Betts, who is construction pit worker today, to evaluate the patient. We will continue to try to reach Dr. Dela Cruz at this time. Continue with antibiotic intravenously and continue with intensive care unit (ICU) care. 2. End stage renal disease on hemodialysis. Dialysis needs per Dr. Abraham. 3. Atrial fibrillation with rapid ventricular rate. The patient has been given multiple doses of digoxin yesterday due to a systolic pressure in the 80s. This morning, the patient's blood pressure is improved to 132 systolic. Therefore, he will be given Lopressor 25 mg every 6 hours and titrate accordingly for better heart rate control. 4. Right third toe gangrene. The patient's intelligence research specialist is Dr. Dela Cruz; however, we are unable to reach him. Therefore, we have consulted Dr. Betts to evaluate the patient emergently, as he remains febrile for the past two days, but we have held off on anticoagulation, both with aspirin and anticoagulation for atrial fibrillation in light of need for debridement. 5. Anemia of chronic disease. No active signs of bleeding. He was transfused red blood cells yesterday, 2 units, with resultant improvement in hemoglobin to 8.3. 6. Electrolyte abnormalities due to renal failure. Dialysis needs per Dr. Abraham. 7. Peripheral vascular disease with poor circulation in the lower extremity, to be evaluated by Dr. Betts today. 8. Hypertension. Currently stable. Holding off on other blood pressure medications due to atrial fibrillation. Metoprolol has been started to control the patient's atrial fibrillation. 9. History of prostate cancer in the remote past. [facility]
--- NOTE | 2016-12-20 19:59 | IPN ---
DATE: 12/20/2016 SUBJECTIVE: Patient was seen and examined at the bedside today in the morning in the intensive care unit (ICU). Patient got two units of packed red blood cell (PRBC) transfusion yesterday because of anemia. Podiatry consult is still pending. Patient is still having low grade fevers at this time, however he is hemodynamically stable. Patient is hyperkalemic today. REVIEW OF SYSTEMS: Patient denies any chills and rigors but he did have a fever spike this morning with a maximum temperature (T-max) of 101.2 degrees Fahrenheit. He denies any chest pain, shortness of breath. He denies any nausea, vomiting, pain in abdomen, or constipation. Rest of review of systems is negative. OBJECTIVE: VITAL SIGNS: T-max is 101.2 degrees Fahrenheit, current temperature (T-current) is 99.1 degrees Fahrenheit, blood pressure 98/53, pulse 109, respiratory rate 23, saturating 99% on room air. INTAKE/OUTPUT: There is no urine output recorded. Weight in the bed scale is 90.5 kg. PHYSICAL EXAMINATION: GENERAL: Patient is awake, alert, oriented times three, laying in bed in no apparent distress. HEAD and NECK EXAM: Patient has a squint. There is no scleral icterus. Mucous membranes are moist. Neck is supple, there is no jugular venous distention (JVD). CARDIOVASCULAR: S1, S2, irregularly irregular heart rate. No murmur, rub, or gallop. RESPIRATORY: Chest is clear to auscultation bilaterally. Bilateral equal air entry. No rales or rhonchi. ABDOMEN: Soft. Positive bowel sounds. Nontender. No ascites. No organomegaly. EXTREMITIES: Patient has a left below knee amputation and patient has dry gangrene in the right 3rd toe and he has decreased pulses in the right lower extremity. CENTRAL NERVOUS SYSTEM (SUPPLY CHAIN PROGRAM MANAGER): No focal neurological deficit. Power is 5/5 in the bilateral upper extremities. SKIN: Patient has an ulceration and gangrene of the right foot 3rd toe, otherwise no rashes or ulcers. PSYCHIATRIC: Normal mood and affect. LABORATORY REVIEW: CBC showed WBC 8.9, hemoglobin 8.3, platelets 143. BMP showed sodium 135, potassium 5.9, chloride 97, bicarbonate 28, BUN 72, creatinine 7.5, calcium 8.7, phosphorous 5.2, albumin 2.4. CURRENT MEDICATIONS: Patient's current medications were all reviewed by me. He continues to be on intravenous (IV) Levaquin and IV vancomycin with hemodialysis. He has been started on metoprolol 25 mg by mouth every 6 hours as well. ASSESSMENT: 66-year-old male with past medical history of end-stage renal disease on hemodialysis, severe peripheral vascular disease resulting in left below knee amputation, and he also has gangrene of the right 3rd toe, admitted to intensive care unit (ICU) with sepsis and atrial fibrillation with rapid ventricular response (RVR). Nephrology service following the patient for management of end-stage renal disease. PLAN: 1. End-stage renal disease. Patient gets dialyzed on Wednesday, Wednesday, Wednesday. There is no urgent need to do hemodialysis today. Patient will be dialyzed tomorrow according to his regular schedule. 2. Hyperkalemia. Patient's potassium is 5.9 today. I am going to give the patient a dose of Kayexalate 15 grams by mouth along with lactulose 15 mL by mouth which should take care of the hyperkalemia and then he will be dialyzed tomorrow morning. 3. Sepsis, most likely secondary to right 3rd toe gangrene. Patient is pending evaluation by surgical service. Continue vancomycin and Levaquin at this time. 4. Atrial fibrillation with rapid ventricular response (RVR). Patient is on digoxin 0.125 mg by mouth every 48 hours and on Cardizem. I see primary team has already added metoprolol 25 mg by mouth every 6 hours as well. If that does not help lower his heart rate, he might have to be started on amiodarone. Eliquis and aspirin were held because of anemia. 5. Anemia in end-stage renal disease. Patient got two units of packed red blood cell (PRBC) transfusion yesterday. Hemoglobin is acceptable at this time. I will give him a dose of Aranesp with hemodialysis tomorrow. Plan of care was discussed with the hospitalist, Dr. Ghada Liu, as well.
[2016-12-20] MEDS: GABAPENTIN 300 MG CAP PO SCH (21:02)
[2016-12-21] VITALS (11 sets, daily range): BP systolic 90–128; BP diastolic 49–57
[2016-12-21] MEDS ORDERED: SODIUM CHLORIDE 0.9% 1000 ML IV ONE (00:45)
[2016-12-21] MEDS: ACETAMINOPHEN TAB 650MG DOSE (2X325MG) PO PRN ×3 (04:49→19:54)
[2016-12-21 05:09] LABS: MEAN CORPUSCULAR HEMOGLOBIN 23.2 pg (27.0-33.0); MEAN CORPUSCULAR HGB CONC 29.9 g/dl (32.0-36.5); MEAN CORPUSCULAR VOLUME 77.4 fl (80.0-96.0); RED CELL DISTRIBUTION WIDTH 17.7 % (11.5-14.5); WHITE BLOOD COUNT 8.9 K/mm3 (4.0-10.0)
[2016-12-21 05:37] LABS: ALBUMIN 2.2 GM/DL (3.2-5.2); CALCIUM LEVEL 8.5 MG/DL (8.8-10.2); CREATININE FOR GFR 8.79 MG/DL (0.70-1.30); GLOMERULAR FILTRATION RATE 7.8 (>49); MAGNESIUM LEVEL 2.4 MG/DL (1.8-2.4); PHOSPHORUS LEVEL 5.7 MG/DL (2.5-4.9)
[2016-12-21 05:42] LABS: POTASSIUM SERUM 5.6 MEQ/L (3.5-5.1)
[2016-12-21] MEDS: METOPROLOL TART 25 MG TABLET PO SCH ×5 (06:00→23:50)
[2016-12-21] MEDS: LevoFLOXacin IV 250 MG in APPROPRIATE DILUENT 1 EA IV SCH (06:01)
--- NOTE | 2016-12-21 06:25 | CR ---
DATE OF CONSULTATION: 12/20/2016 REASON FOR CONSULTATION: Patient seen and examined for right toe gangrene and sepsis. The patient was admitted for due to drop in blood pressure and fevers at dialysis. He was transferred from [facility] Emergency department to [facility]. He has been treated by myself for a pressure ulceration to his right heel, as well as gangrenous second toe. Last week he had followup from his lower extremity angiogram performed by the vascular surgeons in [place]. He was told at that time that he did not have any blood flow going distal to his transmetatarsal region. He has no reperfusable disease and no further vascular intervention can be performed. He has been noted to have worsening condition of this third toe with progressive gangrenous changes. PAST MEDICAL HISTORY: Significant for: 1. Endstage renal disease on dialysis. 2. Chronic anemia. 3. Atrial fibrillation. 4. Peripheral vascular disease. 5. Hypertension. 6. Prostate cancer. PAST SURGICAL HISTORY: Significant for: 1. Arteriovenous (AV) fistula left arm. 2. Left below knee amputation. SOCIAL HISTORY: Long history of tobacco use having quit earlier this year. ALLERGIES: PENICILLIN and HEPARIN. VITAL SIGNS: The patient is febrile, temperature maximum (T-max) is 101.2, blood pressure examination was 132/58, pulse oximetry 98% on room air, respiratory rate 20. LABORATORY DATA: This morning white blood cell count 8.9, ESR is greater than 140, hemoglobin 8.3. Lower extremity examination: There is left leg below knee amputation, right leg is noted to have swelling distal to the ankle. There is gangrenous changes to the right third toe with malodor which has worsened since last seen in the office. There is relative cyanosis of the other toes, 1, 2, 4 and 5 distal to the transmetatarsal region. There is pressure ulceration to the right heel with fibrogranular base approximately 1 cm in diameter. Pulses are nonpalpable. ASSESSMENT: 58-year-old male with sepsis likely secondary to gangrene and cellulitis of the right lower leg. PLAN: Surgical options discussed at length with the patient. The patient does not have adequate blood flow to heal local toe amputation. Options were given of guillotine amputation with subsequent followup with hyperbaric oxygen. It should be noted that he did have trial of hyperbaric oxygen prior to his left leg below knee amputation and was not able to tolerate due to pressure changes, even with this it was noted that he would have a poor chance of healing this. Similarly transmetatarsal amputation would be having marginal healing potential. Definitive below knee amputation was offered. The patient states that this is the procedure he would elect because he does not wish to have multiple surgeries on this limb. He is aware that he does have very poor healing chances of any local procedure on his foot. Recommend general surgery consultation for below knee amputation. Local wound care orders given. [place] toe with Betadine to keep dry and continue off loading pressure ulceration until amputation is performed. Continue current empiric antibiotics. A wound culture was taken at bedside of the toe. Will continue to follow until amputation is performed.
[2016-12-21] MEDS ORDERED: AMIODARONE 150MG/3ML INJ (J0282) IV STA (06:35)
[2016-12-21] MEDS ORDERED: AMIODARONE HCL 150 MG/100 ML PREMIXED BAG (NEXTERONE) As Ordered ONE (06:45)
[2016-12-21] MEDS ORDERED: DARBEPOETIN 300 MCG/0.6 ML *DIALYSIS* SYRINGE (J0882) IV SCH (08:00)
[2016-12-21] MEDS: OMEPRAZOLE 20 MG CAP PO SCH (08:03)
[2016-12-21] MEDS: (RENVELA) SEVELAMER **CARBONate** 800 MG TAB PO SCH ×3 (08:03→19:54)
[2016-12-21] MEDS: DIGOXIN 0.125 MG TAB PO SCH (08:04)
[2016-12-21] MEDS: NEPHRO-VIT TAB (NEPHROCAPS) PO SCH (08:04)
[2016-12-21] MEDS: VITAMIN D 1,000 INTERNATIONAL UNITS TABLET PO SCH (08:04)
[2016-12-21] MEDS: diltiaZEM **CD** 180 MG CAP PO SCH (08:05)
--- NOTE | 2016-12-21 10:50 | IPN ---
DATE: 12/21/2016 The patient is seen and examined at the bedside. Chart has been reviewed. Per nursing, telemetry shows persistent atrial fibrillation, ventricular rate has improved slightly with the metoprolol 25 every 6 hours from 78-114. Patient's blood pressure, however, has decreased down to 90/54. Digoxin level is at 1.8 yesterday and 1.4 today, currently on digoxin 0.125 by mouth every Wednesday, Wednesday, and Wednesday. Patient currently denies any palpitations, lightheadedness, dizziness, nausea, vomiting, chest pain, pressure, tightness, shortness of breath. No other issues per nursing. Dr. Dela Cruz was able to drop in and evaluate the patient yesterday and recommended a right vpfij-cnq-dxoq amputation due to gangrenous 2nd toe with lower extremity angiogram performed by vascular surgeons in [place] with no blood flow distal to the transmetatarsal region. Patient has no reperfusable disease and no further vascular intervention could be performed at that time. Patient since has had worsening 3rd toe gangrene on the right foot and has been admitted for septic shock requiring intravenous (IV) fluid hydration and broad-spectrum antibiotic coverage. Patient's presenting blood pressure was 84 systolic, responded quite well to IV fluid hydration. Currently, vital signs are temperature 98.3, maximum temperature (T-max) of 100.9, pulse 98, respiratory rate 20, blood pressure 104/53, 97% on room air. Generally, patient is awake, alert, oriented to person and place, answering questions appropriately. Speech is fluent. Dry mucous membranes. Missing teeth and poor dentition. No jugular venous distention. Lungs are diminished, clear to auscultation. No wheezing, rales, or rhonchi. Heart: S1, S2, irregularly irregular. Abdomen is soft, nontender, nondistended. Extremities: Patient has a left yqkbv-zwc-jfbp amputation (BKA), right foot 3rd toe has gangrene, multiple ulcers on the great toe, distal pulses are decreased. LABORATORY DATA: White count 8.9, hemoglobin 8.4, hematocrit 28, platelet count 136. Sodium 134, potassium 5.6, chloride 95, bicarbonate 28, BUN 86, creatinine 8.7, glucose 128. Digoxin level of 1.8 on 12/20/2016 and 1.4 on 12/21/2016. Microbiology: Right foot wound culture pending. Sputum culture oropharyngeal contamination. Two sets of blood cultures negative. ASSESSMENT AND PLAN: This is a 66-year-old male with a history of liver cirrhosis by imaging, end-stage renal disease on hemodialysis every Wednesday, Wednesday, Wednesday, hypertension, anemia, atrial fibrillation, peripheral vascular disease with left pdfqn-rvm-qobv amputation, left forearm arteriovenous (AV) fistula, prostate cancer, previously evaluated by vascular surgery in [place], follows with Dr. Dela Cruz, lecturer of portuguese, as outpatient for nonhealing ulcerations on the right heel as well as gangrenous 2nd toe. Patient had a lower extremity angiogram by vascular surgeons in [place] with no blood flow distal to his transmetatarsal region with no reperfusible disease, no further vascular intervention could be performed. Patient has been having worsening condition of the 3rd toe with progressive gangrenous changes with persistent ulceration at the right heel. Patient was found to have atrial fibrillation with rapid ventricular response (RVR) with hypotension, responded to IV fluids but with persistent rapid ventricular rate. Digoxin, multiple doses intravenously, were given due to low blood pressure, systolic pressure of 84, despite a level of 1.8 on toxicology for digoxin, patient continues to have atrial fibrillation with rapid ventricular response (RVR), ventricular rate into 114. He has been given Lopressor 25 every 6 hours with resultant decrease in blood pressure to systolic pressure of 95. He currently received one dose of IV amiodarone this morning. CURRENT ISSUES: 1. Sepsis secondary to gangrenous right 3rd toe. Patient has poor vascular supply and would benefit from right chjcq-pkr-webj amputation. Per Dr. Dela Cruz, his lecturer of portuguese, he is recommending general surgery for nrfbt-cvn-silr amputation. Continue with broad-spectrum antibiotics for now with vancomycin and renally dosed Levaquin. Pharmacy has been consulted for renal dosing in dialysis patient. 2. Atrial fibrillation with rapid ventricular response (RVR). Currently medically unstable to proceed to amputation. Will await control of the atrial fibrillation. He is currently on Lopressor 25 every 6 hours and digoxin. Will adjust doses of digoxin. Patient did receive one dose of amiodarone for possible chemical conversion. At this time patient's anticoagulation, both aspirin and Eliquis, have been discontinued in preparation for amputation. Will medically clear once patient's heart rate is improved. Dr. Madrigal, general surgeon, has been consulted for right cjfoo-vin-bwis amputation and will be made aware of when the patient will be medically stable to proceed with the amputation. 3. Anemia of chronic disease. No active sites of bleeding. Most likely secondary to end-stage renal disease. Patient has received two units of red blood cell transfusion. No other acute indication for blood transfusion at this time. Monitor for symptomatic anemia or hemoglobin less than 8, both of which will be indications to transfuse. 4. End-stage renal disease on maintenance hemodialysis on Wednesday, Wednesday, Wednesday with hyperkalemia, hyponatremia. Defer to Dr. Abraham, client care coordinator, who has been consulted for his dialysis needs. 5. Thrombocytopenia with prior history of liver cirrhosis by imaging. Check for heparin-induced thrombocytopenia panel. Patient's CODE STATUS is LIMITED DO NOT RESUSCITATE. Patient wants a trial of cardiopulmonary resuscitation (CPR) but does not want to be intubated. [facility]
--- NOTE | 2016-12-21 12:52 | PHACANCOPD ---
PHARMACY VANCOMYCIN DOSING Pt Demographics Demographics Patient Age:66 , Weight:92.000 , Gender: male Adjusted Body Weight Date: 12/19/16, Adjusted Body Weight: [84.72] Kg Vancomycin Vancomycin indication: FEVER/SEPSIS Vancomycin Target Ranges: 15-20 mcg/ml Vancomycin Load Y/N: No Load Dose Date Time Vancomycin Load Dose: Date: Time: Vancomycin Dose Date: 12/19/16. Current Vancomycin Dose: [1G IV HD] Intermittent Dosing?: Yes Labs Micro Microbiology 12/19/16 Blood Culture - Preliminary, Resulted No Growth after 48 hours. All Specime... 12/19/16 Blood Culture - Preliminary, Resulted No Growth after 48 hours. All Specime... 12/19/16 Gram Stain - Final, Complete 12/19/16 Sputum Culture - Final, Complete 12/19/16 MRSA Screen - Final, Complete 12/20/16 Gram Stain - Final, Resulted 12/20/16 Wound Culture, Resulted Pending Creatinine Clearance Date:12/19/16. Creatinine Clearance: [14]. Pending Labs Random vanco lelel ordered for 12/19 1100 Assessment and Plan Maintaining Current Dose?: Yes Reason for dose change: No Dose Change Pharmacist Note Pharmacist Note 12/21/16: A random level has been scheduled 12/23/16 @ 0500, to be drawn with AM labs, prior to Wednesday's dialysis session. We will continue to monitor and make dose adjustments accordingly. Date: 12/19/16. Pharmacist note:patient transferred from [facility] :fever/poss sepsis : received lavaquin 500mg IV x1 and Vancomycin 1 gm IV x! at [facility]: will draw a random Vanco level this am and plan dosing regimen accordingly DAVINA [facility] Dec 21, 2016 12:52
--- NOTE | 2016-12-21 14:44 | REP ---
Clinical: Gangrene third toe. Technique: AP, lateral, bilateral oblique views of the right foot. Findings: Osteopenia, degenerative changes, and diffuse small vessel atherosclerotic changes are appreciated and possibly related to underlying diabetes. No definite acute periosteal reaction is appreciated although subtle irregular cortical appearance to the third toe middle phalanx cannot be excluded and this may represent underlying osteomyelitis. No acute/healed fracture identified. Impression: Osteopenia with degenerative changes and small vessel atherosclerotic disease suggesting diabetes. Subtle irregular appearance to the cortex involving the third toe middle phalanx cannot exclude underlying osteomyelitis. Signed by Kumar Villafuerte MD 12/21/2016 02:37 P
--- NOTE | 2016-12-21 16:07 | IPN ---
DATE: 12/21/2016 Mr. Fernandez is seen this morning during hemodialysis. He has long history of end-stage renal disease, diabetes and peripheral vascular disease. He has recently undergone a left bsavl-mwn-faoj amputation. He has gangrenous changes in his right 4th toe and also has a nonhealing ulcer on his right heel. The patient reports that he was seen by Dr. Dela Cruz and a right mpbgs-yfn-kccb amputation has been discussed. Previously he was seen by vascular surgery and an angiogram was discussed, however has not been performed. On physical examination, the patient is awake and alert and at his baseline mentation. His temperature is 98.3 degrees Fahrenheit, heart rate 98 per minute and respiratory rate 20 per minute. Blood pressure 104/53 mmHg and oxygen saturation is 98% on room air. His head is atraumatic. Pupils are equal and reactive to light and sclerae is anicteric. Nose and throat are unremarkable. There is no oral thrush or ulcers. Heart sounds are regular and lungs clear to auscultation. Abdomen soft and nontender. Bowel sounds are normal. Extremities have no cyanosis or clubbing. His right foot is in the brace. 4th toe is gangrenous and ulcer on the heel is covered with dressing. His left arm AV fistula is working. Today's labs show WBC count 8.9, hemoglobin 8.4 and hematocrit 28.2. Platelets 136. Sodium 134 and potassium 5.6. BUN 86, creatinine 8.79. Calcium level is 8.5 and phosphorus 5.7. PROBLEMS: 1. End-stage renal disease. The patient is currently undergoing hemodialysis. We will continue dialysis three times a week on Wednesday, Wednesday, Wednesday schedule. He will be dialyzed 4-1/2 hours today. They are trying to remove about 3 liters of fluid. 2. Hyperkalemia. This is related to tissue necrosis and end-stage renal disease. The patient is being dialyzed with 1.0 mEq potassium bath and it is likely to correct his hyperkalemia completely. 3. Anemia. The patient has anemia of end-stage renal disease, ongoing infection in right foot. We will continue with Aranesp 300 mcg once a week during dialysis. The patient was recently given intravenous iron and we will check his iron studies too. 4. Right foot ischemia. The patient is likely to require further intervention. I will defer to Dr. Dela Cruz about decision for amputation.
[2016-12-21] MEDS: VANCOMYCIN HCL 1,000 MG, VIAL MATE ADAPTER 1 EACH in D5W 250 ML IV SCH (16:12)
[2016-12-21 16:23] LABS: PERCENT SATURATION 15.4 % (19.7-37.4)
[2016-12-21] MEDS: CHECK TO SEE IF PATIENT IS RECEIVING DIALYSIS TODAY AND REFER TO THE VANCOMYCIN ORDER XX SCH (16:25)
[2016-12-21] MEDS ORDERED: SODIUM CHLORIDE 0.9% INJ 10 ML SYR IV PRN (17:15)
[2016-12-21] MEDS: GABAPENTIN 300 MG CAP PO SCH (20:00)
[2016-12-21] MEDS: SODIUM CHLORIDE 0.9% INJ 10 ML SYR IV SCH (21:13)
[2016-12-22] VITALS (9 sets, daily range): BP systolic 88–112; BP diastolic 50–69
[2016-12-22] MEDS: ACETAMINOPHEN TAB 650MG DOSE (2X325MG) PO PRN (04:23)
[2016-12-22 04:39] LABS: MEAN CORPUSCULAR HEMOGLOBIN 22.9 pg (27.0-33.0); MEAN CORPUSCULAR VOLUME 76.4 fl (80.0-96.0); RED CELL DISTRIBUTION WIDTH 18.3 % (11.5-14.5); WHITE BLOOD COUNT 8.7 K/mm3 (4.0-10.0)
[2016-12-22 05:00] LABS: ALBUMIN 2.3 GM/DL (3.2-5.2); CREATININE FOR GFR 5.44 MG/DL (0.70-1.30); GLOMERULAR FILTRATION RATE 13.6 (>49); PHOSPHORUS LEVEL 4.3 MG/DL (2.5-4.9); POTASSIUM SERUM 4.6 MEQ/L (3.5-5.1)
[2016-12-22] MEDS: METOPROLOL TART 25 MG TABLET PO SCH ×3 (06:00→17:08)
[2016-12-22] MEDS: SODIUM CHLORIDE 0.9% INJ 10 ML SYR IV SCH ×3 (06:00→22:15)
[2016-12-22] MEDS: NEPHRO-VIT TAB (NEPHROCAPS) PO SCH (08:43)
[2016-12-22] MEDS: OMEPRAZOLE 20 MG CAP PO SCH (08:43)
[2016-12-22] MEDS: VITAMIN D 1,000 INTERNATIONAL UNITS TABLET PO SCH (08:44)
[2016-12-22] MEDS: diltiaZEM **CD** 180 MG CAP PO SCH (08:44)
[2016-12-22] MEDS: (RENVELA) SEVELAMER **CARBONate** 800 MG TAB PO SCH ×3 (08:44→17:07)
--- NOTE | 2016-12-22 13:45 | IPNPDOC ---
Text Note Date of Service The patient was seen on 12/22/16. NOTE Subjective: Patient is a 66 year old male with a PMHx of ESRD (MWF), Diastolic CHF, PVD, Liver cirrhosis (by imaging), Prostate CA and Chronic A. fib who presented from dialysis because of a fever. Upon arrival he was also found to be in a.fib with RVR and in severe sepsis. He required IV fluid resuscitation and broad spectrum antibiotics. The likely source of his infection is considered to be from right toe gangrene. Patient was also started of digoxin and metoprolol in addition to his Cardizem to control his heart rate. Patient was seen and examined at the bedside. He denied any complaints. Objective: Vitals (See below) General: Lying in chair, no acute distress, comfortable, AAOx3 HEENT: NC, AT CVS: RRR, +S1S2 Lungs: Fair air entry b/l, -w/r/r Abdomen: Soft, ND, NT, +BSx4 Extremities: Left BKA, - edema, - calf tenderness, Right 3rd digit of foot appears gangrenous Assessment and Plan: 1. Sepsis - likely 2/2 infection from infected right foot gangrenous 3rd digit - History of having vascular surgery evaluation in [place] - presented with fever and hypotension - received IV fluid resuscitation initially and BP improved - no lactic acid available from admission - has been started on Vancomycin and Levaquin - General surgery to take to OR on Wednesday; consulted Dr. Madrigal - appreciate their input 2. A. fib with RVR - likely uncontrolled in the setting of sepsis - HR better controlled this morning - will be medically cleared for surgery - c/w lopressor, cardizem and digoxin - Anticoagulation with ASA and Eliquis on hold for surgery 3. Anemia of chronic disease - 2/2 ESRD - s/p 2 units PRBC - will continue to follow 4. ESRD on HD (MWF) - Dr. Jean-Baptiste (Nephrology) consulted - appreciate their input 5. Thrombocytopenia - likely 2/2 cirrhosis - no evidence of bleeding - will continue to monitor 6. Hx of Diastolic CHF 7. Hx of Liver cirrhosis (by imaging) 8. Hx of Prostate CA 9. DVT prophylaxis - on hold for surgical intervention Code status - DNI, but not DNR VS,Fishbone, I+O VS, Fishbone, I+O Laboratory Tests 12/22/16 04:06 Anion Gap 10, Red Blood Count 3.48 L, Mean Corpuscular Volume 76.4 L, Mean Corpuscular Hemoglobin 22.9 L, Mean Corpuscular Hemoglobin Concent 30.0 L, Red Cell Distribution Width 18.3 H Vital Signs Date Time Temp Pulse Resp B/P Pulse Ox O2 Delivery O2 Flow Rate FiO2 12/22/16 12:00 98.6 107 20 103/52 98 Room Air I&O- Last 24 Hours up to 6 AM 12/22/16 06:00 Intake Total 1740 ml Output Total 3000 ml Balance -1260 ml NGHIA EVERETT MD Dec 22, 2016 13:45
[2016-12-22] MEDS: CHECK TO SEE IF PATIENT IS RECEIVING DIALYSIS TODAY AND REFER TO THE VANCOMYCIN ORDER XX SCH (15:46)
--- NOTE | 2016-12-22 16:33 | IPN ---
DATE: 12/22/2016 Patient is seen and examined at bedside. States he is doing okay. States he is ready for the surgery for his below-knee amputation. VITAL SIGNS: Patient afebrile right now. He had maximum temperature (T-max) at 100.5 overnight. White cell count 8.7, hemoglobin 8. LOWER EXTREMITY EXAM: No change in appearance of foot. 3rd toe completely necrotic and gangrenous. ASSESSMENT: 66-year-old male with pressure ulceration and 3rd toe gangrene with peripheral vascular disease (PVD). PLAN: General surgery has been consulted for below-knee amputation which is scheduled for this week. Did discuss surgery with patient and his , who both expressed good understanding of the plan and the reason it is necessary for the below-knee amputation. At this time will sign off. Please re-consult as needed.
[2016-12-22] MEDS ORDERED: IRON SUCROSE 100 MG/5 ML INJ (J1756) IV SCH (17:30)
[2016-12-22] MEDS: GABAPENTIN 300 MG CAP PO SCH (22:15)
[2016-12-23] VITALS (8 sets, daily range): BP systolic 93–107; BP diastolic 52–64
[2016-12-23] MEDS: LevoFLOXacin IV 250 MG in APPROPRIATE DILUENT 1 EA IV SCH (05:30)
[2016-12-23] MEDS: METOPROLOL TART 25 MG TABLET PO SCH ×4 (05:30→18:00)
[2016-12-23] MEDS: SODIUM CHLORIDE 0.9% INJ 10 ML SYR IV SCH ×3 (05:31→21:55)
[2016-12-23 06:10] LABS: MEAN CORPUSCULAR HEMOGLOBIN 22.8 pg (27.0-33.0); MEAN CORPUSCULAR VOLUME 76.1 fl (80.0-96.0); RED CELL DISTRIBUTION WIDTH 18.5 % (11.5-14.5); WHITE BLOOD COUNT 9.7 K/mm3 (4.0-10.0)
[2016-12-23 06:11] LABS: ALBUMIN 2.1 GM/DL (3.2-5.2); CALCIUM LEVEL 8.4 MG/DL (8.8-10.2); CREATININE FOR GFR 7.22 MG/DL (0.70-1.30); GLOMERULAR FILTRATION RATE 9.8 (>49); MAGNESIUM LEVEL 2.1 MG/DL (1.8-2.4); PHOSPHORUS LEVEL 4.7 MG/DL (2.5-4.9); POTASSIUM SERUM 4.8 MEQ/L (3.5-5.1)
--- NOTE | 2016-12-23 06:21 | IPN ---
DATE: 12/22/2016 Mr. Fernandez is seen this morning on his bedside. He is sitting in the recliner chair at the time of my visit. The patient denies any nausea, vomiting, dyspnea or chest pain. Nursing staff reports that his heart rate has been generally above 100 with atrial fibrillation and blood pressure has been below 100 mmHg systolic. The patient underwent hemodialysis yesterday and after dialysis, his blood pressure was down in 80s, so he was given 1 fluid bolus. PHYSICAL EXAMINATION: The patient is awake and at about his baseline mentation. His temperature is 99.6 degrees Fahrenheit, heart rate about 115 per minute and respiratory rate 20 per minute. Blood pressure 95/52 mmHg and oxygen saturation 98% on room air. Head: Is atraumatic. Ears, nose and throat are unremarkable. Neck is supple and without any jugular venous distention (JVD) or thyroid enlargement. He is edentulous and without any oral thrush or ulcers. Heart: Sounds are irregular in rhythm and tachycardiac. Lungs with no wheezing or rales. Abdomen is soft and nontender and without any palpable organomegaly. Bowel sounds are normal. Extremities have no cyanosis and clubbing. He has left heodg-pjc-deav amputation. His right foot is in the dressing and brace. Neurologically he is awake, alert and oriented times three. Today's labs show WBC count 8.7, hemoglobin 8.0 and hematocrit 26.6. Platelets 144. Sodium 133 and potassium 4.6. BUN 43 and creatinine 5.44. Calcium level 8.0, phosphorus 4.3 and magnesium 2.0. Albumin is 2.3. PROBLEMS: 1. End-stage renal disease. The patient undergoes hemodialysis on Wednesday, Wednesday and Wednesday schedule. He will be dialyzed again tomorrow. 2. Hypotension and atrial fibrillation with rapid ventricular rate. The patient remains on beta ross therapy. At present, he is not suitable for anticoagulation due to worsening anemia, risk of bleeding from his left leg where he is likely to require left wwizb-zux-pjlv amputation. 3. Anemia. His anemia is more or less stable. He has been transfused 2 units of packed RBCs during this hospitalization and likely to require further transfusion if he undergoes left below the knee amputation. He is also receiving Aranesp during dialysis. We checked his iron studies yesterday and he does have iron deficiency. I will resume Venofer 100 mg during hemodialysis. 4. Hyperkalemia. His potassium level has corrected with last hemodialysis and at this point, his potassium level is normal. 5. Hyponatremia. This is mild and likely to improve with hemodialysis tomorrow. No specific intervention is indicated at this time. 6. Peripheral vascular disease with right fourth toe gangrene and right heel nonhealing ulcer with chronic osteomyelitis. A right uvskc-bqr-modp amputation is being discussed and the patient remains on Levaquin 250 mg intravenously every 48 hours in addition to vancomycin 1000 mg after each dialysis.
[2016-12-23] MEDS: (RENVELA) SEVELAMER **CARBONate** 800 MG TAB PO SCH ×3 (07:06→18:00)
[2016-12-23] MEDS ORDERED: MEROPENEM INJ 1 GM in D5W MINI-BAG PLUS 100 ML IV SCH (08:00)
[2016-12-23] MEDS: DIGOXIN 0.125 MG TAB PO SCH (08:40)
[2016-12-23] MEDS: OMEPRAZOLE 20 MG CAP PO SCH (08:40)
[2016-12-23] MEDS: VITAMIN D 1,000 INTERNATIONAL UNITS TABLET PO SCH (08:40)
[2016-12-23] MEDS: diltiaZEM **CD** 180 MG CAP PO SCH (08:40)
[2016-12-23] MEDS: NEPHRO-VIT TAB (NEPHROCAPS) PO SCH (08:40)
--- NOTE | 2016-12-23 11:09 | PHACANCOPD ---
PHARMACY VANCOMYCIN DOSING Pt Demographics Demographics Patient Age:66 , Weight:92.400 , Gender: male Adjusted Body Weight Date: 12/19/16, Adjusted Body Weight: [84.72] Kg Vancomycin Vancomycin indication: FEVER/SEPSIS Vancomycin Target Ranges: 15-20 mcg/ml Vancomycin Load Y/N: No Load Dose Date Time Vancomycin Load Dose: Date: Time: Vancomycin Dose Date: 12/19/16. Current Vancomycin Dose: [1G IV HD] Intermittent Dosing?: Yes Labs Micro Microbiology 12/19/16 Blood Culture - Preliminary, Resulted No Growth after 72 hours. All specime... 12/19/16 Blood Culture - Preliminary, Resulted No Growth after 72 hours. All specime... 12/19/16 Gram Stain - Final, Complete 12/19/16 Sputum Culture - Final, Complete 12/19/16 MRSA Screen - Final, Complete 12/20/16 Gram Stain - Final, Complete 12/20/16 Wound Culture - Final, Complete Providencia Rettgeri Staphylococcus Aureus Enterococcus Faecalis Creatinine Clearance Date:12/19/16. Creatinine Clearance: [14]. Pending Labs Random vanco lelel ordered for 12/19 1100 Assessment and Plan Maintaining Current Dose?: Yes Reason for dose change: No Dose Change Pharmacist Note Pharmacist Note 12/23/16: Random level drawn with morning labs this AM resulted at 24. I will maintain patient on vancomycin 1g IV HD dosing. The patient's right foot wound culture grew MRSA (SARAH=1), enterococcus faecalis (sensitive to vanco), and providencia rettgeri (sensitive to merrem). Another random level is scheduled AM, prior to dialysis. We will continue to monitor and make any needed dose adjustments accordingly. 12/21/16: A random level has been scheduled 12/23/16 @ 0500, to be drawn with AM labs, prior to Wednesday's dialysis session. We will continue to monitor and make dose adjustments accordingly. Date: 12/19/16. Pharmacist note:patient transferred from [facility] :fever/poss sepsis : received lavaquin 500mg IV x1 and Vancomycin 1 gm IV x! at [facility]: will draw a random Vanco level this am and plan dosing regimen accordingly DAVINA [facility] Dec 23, 2016 11:09
--- NOTE | 2016-12-23 11:44 | IPNPDOC ---
Text Note Date of Service The patient was seen on 12/23/16. NOTE Subjective: Patient is a 66 year old male with a PMHx of ESRD (MWF), Diastolic CHF, PVD, Liver cirrhosis (by imaging), Prostate CA and Chronic A. fib who presented from dialysis because of a fever. Upon arrival he was also found to be in a.fib with RVR and in severe sepsis. He required IV fluid resuscitation and broad spectrum antibiotics. The likely source of his infection is considered to be from right toe gangrene. Patient was also started of digoxin and metoprolol in addition to his Cardizem to control his heart rate. Patient was seen and examined at the bedside. Has no complaints this morning. Objective: Vitals (See below) General: Lying in chair, no acute distress, comfortable, AAOx3 HEENT: NC, AT CVS: RRR, +S1S2 Lungs: Fair air entry b/l, -w/r/r Abdomen: Soft, ND, NT, +BSx4 Extremities: Left BKA, - edema, - calf tenderness, Right 3rd digit of foot appears gangrenous Assessment and Plan: 1. Sepsis - likely 2/2 infection from infected right foot gangrenous 3rd digit - History of having vascular surgery evaluation in [place] - presented with fever and hypotension - received IV fluid resuscitation initially and BP improved - no lactic acid available from admission - Cultures from wound positive for: Providencia Rettgeri, Staph aureus, Enterococcus Faecalis - has been started on Vancomycin and Levaquin - Changed antibiotics from Levaquin to Meropenem given susceptibility information - Will be take to OR today with Dr. Madrigal for [facility] - appreciate their input 2. A. fib with RVR - likely uncontrolled in the setting of sepsis - HR better controlled - c/w lopressor, cardizem and digoxin - Anticoagulation with ASA and Eliquis on hold for surgery - Cleared for surgery today 3. Anemia of chronic disease - 2/2 ESRD - s/p 2 units PRBC - Hg lower than baseline - will transfuse 1 unit PRBC with HD - will continue to follow 4. ESRD on HD (MWF) - Dr. Jean-Baptiste (Nephrology) consulted - appreciate their input 5. Thrombocytopenia - likely 2/2 cirrhosis - no evidence of bleeding - will continue to monitor 6. Hx of Diastolic CHF 7. Hx of Liver cirrhosis (by imaging) 8. Hx of Prostate CA 9. DVT prophylaxis - on hold for surgical intervention Code status - DNI, but not DNR VS,Fishbone, I+O VS, Fishbone, I+O Laboratory Tests 12/23/16 05:33 Anion Gap 14, Red Blood Count 3.39 L, Mean Corpuscular Volume 76.1 L, Mean Corpuscular Hemoglobin 22.8 L, Mean Corpuscular Hemoglobin Concent 30.0 L, Red Cell Distribution Width 18.5 H Vital Signs Date Time Temp Pulse Resp B/P Pulse Ox O2 Delivery O2 Flow Rate FiO2 12/23/16 08:40 96 109/62 12/23/16 08:00 98.8 20 100 Room Air I&O- Last 24 Hours up to 6 AM 12/23/16 06:00 Intake Total 1040 ml Output Total 0 ml Balance 1040 ml NGHIA EVERETT MD Dec 23, 2016 11:44
[2016-12-23 13:11] LABS: MEAN CORPUSCULAR HEMOGLOBIN 23.8 pg (27.0-33.0); MEAN CORPUSCULAR HGB CONC 31.6 g/dl (32.0-36.5); MEAN CORPUSCULAR VOLUME 75.3 fl (80.0-96.0); RED CELL DISTRIBUTION WIDTH 17.7 % (11.5-14.5); WHITE BLOOD COUNT 9.6 K/mm3 (4.0-10.0)
[2016-12-23 13:17] LABS: INR 1.15
[2016-12-23 13:39] LABS: ALBUMIN 2.3 GM/DL (3.2-5.2); ALBUMIN/GLOBULIN RATIO 0.55 (1.00-1.93); CALCIUM LEVEL 8.4 MG/DL (8.8-10.2); POTASSIUM SERUM 3.2 MEQ/L (3.5-5.1); TOTAL PROTEIN 6.5 GM/DL (6.4-8.2)
[2016-12-23 13:55] LABS: CREATININE FOR GFR 2.34 MG/DL (0.70-1.30); GLOMERULAR FILTRATION RATE 35.9 (>49)
[2016-12-23] MEDS ORDERED: PROPOFOL 200 MG/20 ML VIAL As Ordered ONE ×3 (15:15→16:10)
[2016-12-23] MEDS ORDERED: MIDAZOLAM INJ 2 MG/2 ML VIAL (J2250) As Ordered ONE (15:15)
[2016-12-23] MEDS ORDERED: PHENYLEPHRINE INJ 10MG/ML VIAL (J2370) As Ordered ONE (15:43)
[2016-12-23] MEDS: CHECK TO SEE IF PATIENT IS RECEIVING DIALYSIS TODAY AND REFER TO THE VANCOMYCIN ORDER XX SCH (16:00)
[2016-12-23] MEDS ORDERED: THROMBIN SOLN 20,000 UNITS KIT As Ordered ONE (16:14)
[2016-12-23] MEDS ORDERED: THROMBIN SOLN 20,000 UNITS KIT TOP ONE (16:23)
[2016-12-23] MEDS ORDERED: fentaNYL 100 MCG/2 ML INJECTION (J3010) IV PRN ×2 (17:30)
[2016-12-23] MEDS ORDERED: HYDROmorphone HCL 1 MG/ML SYRINGE (J1170) IV PRN ×2 (17:30)
[2016-12-23] MEDS ORDERED: ONDANSETRON 4MG/2ML VIAL (J2405) IV PRN ×2 (17:30)
[2016-12-23] MEDS ORDERED: LR 1,000 ML IV SCH ×2 (17:30)
[2016-12-23 17:41] LABS: MEAN CORPUSCULAR HEMOGLOBIN 23.8 pg (27.0-33.0); MEAN CORPUSCULAR HGB CONC 30.7 g/dl (32.0-36.5); MEAN CORPUSCULAR VOLUME 77.6 fl (80.0-96.0); RED CELL DISTRIBUTION WIDTH 18.6 % (11.5-14.5); WHITE BLOOD COUNT 9.7 K/mm3 (4.0-10.0)
[2016-12-23 17:45] LABS: CALCIUM LEVEL 8.7 MG/DL (8.8-10.2); CREATININE FOR GFR 3.61 MG/DL (0.70-1.30); GLOMERULAR FILTRATION RATE 21.8 (>49); POTASSIUM SERUM 3.8 MEQ/L (3.5-5.1)
[2016-12-23] MEDS: MEROPENEM INJ 500 MG in D5W MINI-BAG PLUS 100 ML IV SCH (18:17)
[2016-12-23] MEDS: VANCOMYCIN HCL 1,000 MG, VIAL MATE ADAPTER 1 EACH in D5W 250 ML IV SCH (18:17)
[2016-12-23] MEDS: NORCO, ANEXSIA 5/325MG TABLET (HYDROcodone/ACETAMINOPHEN) PO PRN ×2 (20:06→20:39)
[2016-12-23] MEDS: GABAPENTIN 300 MG CAP PO SCH (20:06)
[2016-12-24] VITALS: BP 120/58
[2016-12-24] MEDS: NORCO, ANEXSIA 5/325MG TABLET (HYDROcodone/ACETAMINOPHEN) PO PRN ×4 (00:50→14:26)
[2016-12-24 04:00] VITALS: BP 107/51
[2016-12-24] MEDS: METOPROLOL TART 25 MG TABLET PO SCH ×4 (05:20→17:54)
[2016-12-24] MEDS: SODIUM CHLORIDE 0.9% INJ 10 ML SYR IV SCH ×3 (05:21→21:28)
[2016-12-24 05:38] LABS: MEAN CORPUSCULAR HEMOGLOBIN 23.4 pg (27.0-33.0); MEAN CORPUSCULAR HGB CONC 29.9 g/dl (32.0-36.5); MEAN CORPUSCULAR VOLUME 78.3 fl (80.0-96.0); RED CELL DISTRIBUTION WIDTH 18.7 % (11.5-14.5); WHITE BLOOD COUNT 10.3 K/mm3 (4.0-10.0)
[2016-12-24 06:01] LABS: ALBUMIN 2.2 GM/DL (3.2-5.2); CALCIUM LEVEL 8.3 MG/DL (8.8-10.2); CREATININE FOR GFR 4.7 MG/DL (0.70-1.30); GLOMERULAR FILTRATION RATE 16.1 (>49); PHOSPHORUS LEVEL 4.4 MG/DL (2.5-4.9); POTASSIUM SERUM 4.2 MEQ/L (3.5-5.1)
--- NOTE | 2016-12-24 06:58 | IPN ---
DATE: 12/23/2016 Mr. Fernandez is seen this morning during hemodialysis. I was informed by the nursing staff that the patient is scheduled for his right qvurg-wpq-knlt amputation early this afternoon. We have decided to dialyze him this morning to get him ready for the operating room. The patient denies any dyspnea or chest pain. He has no nausea or vomiting and has been nothing by mouth (n.p.o.). On physical exam, his temperature is 98 degrees Fahrenheit, heart rate 100 per minute and respiratory rate 20 per minute. Blood pressure 109/62 mmHg and oxygen saturation 100% on room air. Head is atraumatic. Neck is supple and without any jugular venous distention (JVD) or thyroid enlargement. Pupils are equal and reactive to light and sclera is anicteric. He is edentulous and without any oral thrush or ulcers. Heart sounds are irregular in rhythm. Lungs clear to auscultation. Abdomen soft and nontender. Extremities without any cyanosis or clubbing. Right foot is in the dressing and brace. He has a left opdwc-sxj-xstv amputation. Today's labs show WBC count 9.7, hemoglobin 7.7 and hematocrit 25.8. Sodium 133 and potassium 4.8. BUN 61 and creatinine 7.22. PROBLEMS: 1. End-stage renal disease. The patient is being dialyzed today as he is scheduled for the operating room (OR) later this afternoon for a right hgunt-dcm-wfvy amputation. We will remove only 2 liters of fluid in anticipation for the OR water and prevent hypotension. 2. Anemia. The patient has worsening anemia related to end-stage renal disease and ongoing infections with osteomyelitis in his right heel. The patient is going to be given 1 unit of packed red blood cells (RBCs) during dialysis. We will recheck his CBC and consider further transfusion after surgery if needed. 3. Hyponatremia. This is mild and chronic. It is likely to correct with hemodialysis and does not need any other intervention. 4. Osteomyelitis of right heel and gangrenous toe on the right foot. The patient is scheduled for surgery later today. He remains on IV antibiotics which should be continued, including vancomycin and Levaquin.
[2016-12-24 08:00] VITALS: BP 124/60
[2016-12-24] MEDS: OMEPRAZOLE 20 MG CAP PO SCH (09:24)
[2016-12-24] MEDS: NEPHRO-VIT TAB (NEPHROCAPS) PO SCH (09:24)
[2016-12-24] MEDS: diltiaZEM **CD** 180 MG CAP PO SCH (09:24)
[2016-12-24] MEDS: VITAMIN D 1,000 INTERNATIONAL UNITS TABLET PO SCH (09:24)
[2016-12-24] MEDS: (RENVELA) SEVELAMER **CARBONate** 800 MG TAB PO SCH ×3 (09:24→17:53)
[2016-12-24 12:00] VITALS: BP 110/57
--- NOTE | 2016-12-24 13:37 | IPNPDOC ---
Text Note Date of Service The patient was seen on 12/24/16. NOTE Subjective: Patient is a 66 year old male with a PMHx of ESRD (MWF), Diastolic CHF, PVD, Liver cirrhosis (by imaging), Prostate CA and Chronic A. fib who presented from dialysis because of a fever. Upon arrival he was also found to be in a.fib with RVR and in severe sepsis. He required IV fluid resuscitation and broad spectrum antibiotics. The likely source of his infection is considered to be from right toe gangrene. Patient was also started of digoxin and metoprolol in addition to his Cardizem to control his heart rate. Patient was seen and examined at the bedside. He notes that he is experiencing some phantom right leg pain. Objective: Vitals (See below) General: Lying in chair, no acute distress, comfortable, AAOx3 HEENT: NC, AT CVS: RRR, +S1S2 Lungs: Fair air entry b/l, -w/r/r Abdomen: Soft, ND, NT, +BSx4 Extremities: Left BKA, s/p R BKA - dressing in place - drain in place Assessment and Plan: 1. Sepsis - likely 2/2 infection from infected right foot gangrenous 3rd digit - History of having vascular surgery evaluation in [place] - presented with fever and hypotension - received IV fluid resuscitation initially and BP improved - no lactic acid available from admission - Cultures from wound positive for: Providencia Rettgeri, Staph aureus, Enterococcus Faecalis - c/w Meropenem and Vancomycin (Day #6) based on susceptibility - s/p R BKA with Dr. Madrigal - appreciate their input 2. A. fib with RVR - likely uncontrolled in the setting of sepsis - HR better controlled - c/w lopressor, cardizem and digoxin - Will need to restart anticoagulation with ASA and Eliquis when cleared by surgery 3. Anemia of chronic disease - 2/2 ESRD - s/p 3 units PRBC - will continue to follow 4. ESRD on HD (MWF) - Dr. Jean-Baptiste (Nephrology) consulted - appreciate their input 5. Thrombocytopenia - likely 2/2 cirrhosis - no evidence of bleeding - will continue to monitor 6. Hx of Diastolic CHF 7. Hx of Liver cirrhosis (by imaging) 8. Hx of Prostate CA 9. DVT prophylaxis - will restart when cleared by surgery Code status - DNI, but not DNR VS,Fishbone, I+O VS, Fishbone, I+O Laboratory Tests 12/23/16 17:10 Calcium Level 8.7 L, Red Blood Count 3.52 L, Mean Corpuscular Volume 77.6 L, Mean Corpuscular Hemoglobin 23.8 L, Mean Corpuscular Hemoglobin Concent 30.7 L, Red Cell Distribution Width 18.6 H 12/24/16 05:23 Red Blood Count 3.46 L, Mean Corpuscular Volume 78.3 L, Mean Corpuscular Hemoglobin 23.4 L, Mean Corpuscular Hemoglobin Concent 29.9 L, Red Cell Distribution Width 18.7 H, Anion Gap 11 Vital Signs Date Time Temp Pulse Resp B/P Pulse Ox O2 Delivery O2 Flow Rate FiO2 12/24/16 12:52 93 110/57 12/24/16 12:00 97.5 22 96 Room Air I&O- Last 24 Hours up to 6 AM 12/24/16 06:00 Intake Total 975 ml Output Total 2075 ml Balance -1100 ml NGHIA EVERETT MD Dec 24, 2016 13:37
--- NOTE | 2016-12-24 13:46 | IPN ---
DATE: 12/24/2016 Mr. Fernandez is seen this morning on his bedside. He underwent hemodialysis yesterday morning and then had a right iubhl-wsz-skhr amputation done in the afternoon. This morning, he is sitting in the bed eating his breakfast. He continues to have sharp pain which is phantom pain in his right lower extremity. He denies any nausea, vomiting, dyspnea, chest pain, fever or chills. On physical exam, temperature 97.2 degrees Fahrenheit, heart rate 86 per minute and respiratory rate 22 per minute. Blood pressure 124/58 mmHg and oxygen saturation 97% on room air. He has an internal jugular vein central line in the right side of neck. Neck veins are not abnormally distended. His neck is supple and without any thyroid enlargement. Trachea is midline. Pupils are equal and reactive to light and sclera anicteric. Ears, nose and throat are unremarkable and head is atraumatic. Heart sounds are irregular in rhythm. Lungs sound clear to auscultation. Abdomen is soft and nontender and without palpable organomegaly. Bowel sounds are normal. Extremities have no cyanosis or clubbing. His left arm AV fistula is patent. He has prior left pwmcj-jyo-dykf amputation with a well-healed stump and now a right uwtlv-ump-mkbl amputation yesterday. Dressing is intact and drain is in place. Neurologically, he is awake, alert and oriented times three. Today's labs show WBC count 10.3, hemoglobin 8.1 and hematocrit 27.0. Platelets 155. Sodium 134 and potassium 4.2. BUN 30 and creatinine 4.70. Albumin is 2.2. PROBLEMS: 1. End-stage renal disease. The patient underwent hemodialysis yesterday. His regular dialysis is on Wednesday, Wednesday and Wednesday and he will be dialyzed tomorrow at his usual regular time. His volume status is well-compensated and electrolytes are within normal range so there is no indication for dialysis today. 2. Anemia. Mostly it is related to ongoing infection in his right foot in the setting of end-stage renal disease. He receives Aranesp and Venofer during hemodialysis which will be continued. At this point, there is no need for transfusion and we anticipate improvement in his anemia over the next couple of weeks as the source of infection has been removed. 3. Atrial fibrillation with rapid ventricular rate. At present, his ventricular rate is reasonably well-controlled. He is not suitable for anticoagulation. 4. Hyponatremia. This is mild and stable and it is likely to correct with hemodialysis tomorrow. No intervention is indicated at this time. 5. Protein calorie malnutrition. The patient is eating well today and his chronic malnutrition is related to ongoing infection in his right foot. We anticipate improvement in his nutritional status over next several weeks.
[2016-12-24 14:45] VITALS: BP 123/59
[2016-12-24] MEDS: CHECK TO SEE IF PATIENT IS RECEIVING DIALYSIS TODAY AND REFER TO THE VANCOMYCIN ORDER XX SCH (16:45)
[2016-12-24] MEDS: MEROPENEM INJ 500 MG in D5W MINI-BAG PLUS 100 ML IV SCH (17:54)
[2016-12-24] MEDS: GABAPENTIN 300 MG CAP PO SCH (21:28)
[2016-12-24 22:00] VITALS: BP 109/56
[2016-12-25] MEDS: METOPROLOL TART 25 MG TABLET PO SCH ×5 (00:45→23:30)
[2016-12-25] MEDS: NORCO, ANEXSIA 5/325MG TABLET (HYDROcodone/ACETAMINOPHEN) PO PRN ×3 (00:52→20:50)
[2016-12-25] MEDS: SODIUM CHLORIDE 0.9% INJ 10 ML SYR IV SCH ×3 (05:02→20:45)
[2016-12-25] MEDS: NEPHRO-VIT TAB (NEPHROCAPS) PO SCH (05:11)
[2016-12-25] MEDS: OMEPRAZOLE 20 MG CAP PO SCH (05:12)
[2016-12-25] MEDS: DIGOXIN 0.125 MG TAB PO SCH (05:12)
[2016-12-25] MEDS: (RENVELA) SEVELAMER **CARBONate** 800 MG TAB PO SCH ×3 (05:12→17:28)
[2016-12-25] MEDS: VITAMIN D 1,000 INTERNATIONAL UNITS TABLET PO SCH (05:13)
[2016-12-25 05:21] LABS: MEAN CORPUSCULAR HEMOGLOBIN 23.4 pg (27.0-33.0); MEAN CORPUSCULAR HGB CONC 30.2 g/dl (32.0-36.5); MEAN CORPUSCULAR VOLUME 77.5 fl (80.0-96.0); WHITE BLOOD COUNT 9.9 K/mm3 (4.0-10.0)
[2016-12-25 05:45] LABS: CALCIUM LEVEL 8.5 MG/DL (8.8-10.2); CREATININE FOR GFR 6.08 MG/DL (0.70-1.30); GLOMERULAR FILTRATION RATE 11.9 (>49); MAGNESIUM LEVEL 2.1 MG/DL (1.8-2.4); PHOSPHORUS LEVEL 5.7 MG/DL (2.5-4.9); VANCOMYCIN RANDOM 27.9 UG/ML
[2016-12-25 06:00] VITALS: BP 110/58
--- NOTE | 2016-12-25 06:02 | PHACANCOPD ---
PHARMACY VANCOMYCIN DOSING Pt Demographics Demographics Patient Age:66 , Weight:88.400 , Gender: male Adjusted Body Weight Date: 12/19/16, Adjusted Body Weight: [84.72] Kg Events Past 24 Hours Events Past 24 Hours: NO: Change in CrCl, Dialysis, Diuretic Therapy, Elevation in WBC, Fever, Other, Pending Diagnostics, Pending Procedures Vancomycin Vancomycin indication: FEVER/SEPSIS Vancomycin Target Ranges: 15-20 mcg/ml Vancomycin Load Y/N: No Load Dose Date Time Vancomycin Load Dose: Date: Time: Vancomycin Dose Date: 12/19/16. Current Vancomycin Dose: [1G IV HD] Intermittent Dosing?: Yes Labs Labs Item Value Date Time White Blood Count 9.9 K/mm3 12/25/16 0500 Creatinine 6.08 MG/DL H 12/25/16 0500 Random Vancomycin Level 27.9 UG/ML 12/25/16 0500 Micro Microbiology 12/19/16 Blood Culture - Final, Complete NO GROWTH AFTER 5 DAYS 12/19/16 Blood Culture - Final, Complete NO GROWTH AFTER 5 DAYS 12/19/16 Gram Stain - Final, Complete 12/19/16 Sputum Culture - Final, Complete 12/19/16 MRSA Screen - Final, Complete 12/20/16 Gram Stain - Final, Complete 12/20/16 Wound Culture - Final, Complete Providencia Rettgeri Staphylococcus Aureus Enterococcus Faecalis Creatinine Clearance Date:12/19/16. Creatinine Clearance: [14]. Pending Labs Random vanco lelel ordered for 12/26 IN AM Assessment and Plan Maintaining Current Dose?: Yes Reason for dose change: No Dose Change Pharmacist Note Pharmacist Note Date: 12/19/16. Pharmacist note:Random level of 27.9. Will continue vanco HD. Will continue to monitor and make adjustments as needed. [facility] Dec 25, 2016 06:01
[2016-12-25] MEDS: diltiaZEM **CD** 180 MG CAP PO SCH (08:06)
--- NOTE | 2016-12-25 11:57 | IPNPDOC ---
Text Note Date of Service The patient was seen on 12/25/16. NOTE Subjective: Patient is a 66 year old male with a PMHx of ESRD (MWF), Diastolic CHF, PVD, Liver cirrhosis (by imaging), Prostate CA and Chronic A. fib who presented from dialysis because of a fever. Upon arrival he was also found to be in a.fib with RVR and in severe sepsis. He required IV fluid resuscitation and broad spectrum antibiotics. The likely source of his infection is considered to be from right toe gangrene. Patient was also started of digoxin and metoprolol in addition to his Cardizem to control his heart rate. Patient was seen and examined at the bedside. He denies any problems today. Objective: Vitals (See below) General: Lying in chair, no acute distress, comfortable, AAOx3 HEENT: NC, AT CVS: RRR, +S1S2 Lungs: Fair air entry b/l, -w/r/r Abdomen: Soft, ND, NT, +BSx4 Extremities: Left BKA, s/p R BKA - dressing in place Assessment and Plan: 1. Sepsis - likely 2/2 infection from infected right foot gangrenous 3rd digit - History of having vascular surgery evaluation in [place] - Presented with fever and hypotension; received IV fluid resuscitation initially - No lactic acid available from admission - Cultures from wound positive for: Providencia Rettgeri, Staph aureus, Enterococcus Faecalis - c/w Meropenem and Vancomycin (Day #7) based on susceptibility - s/p R BKA with Dr. Madrigal - appreciate their input 2. s/p A. fib with RVR - likely uncontrolled in the setting of sepsis - HR better controlled - c/w lopressor, cardizem and digoxin - Will need to restart anticoagulation with ASA and Eliquis in next few days - Minimal blood loss from wound; awaiting Hg to stabilize 3. Anemia of chronic disease - 2/2 ESRD - s/p 3 units PRBC - Hg lower than baseline - will transfuse 2 units PRBC today - will continue to follow 4. ESRD on HD (MWF) - Dr. Jean-Baptiste (Nephrology) consulted - appreciate their input 5. Thrombocytopenia - likely 2/2 cirrhosis - no evidence of bleeding - will continue to monitor 6. Hx of Diastolic CHF 7. Hx of Liver cirrhosis (by imaging) 8. Hx of Prostate CA 9. DVT prophylaxis - will need to start full anticoagulation within next few days Code status - DNI, but not DNR VS,Fishbone, I+O VS, Fishbone, I+O Laboratory Tests 12/25/16 05:00 Anion Gap 13, Red Blood Count 3.26 L, Mean Corpuscular Volume 77.5 L, Mean Corpuscular Hemoglobin 23.4 L, Mean Corpuscular Hemoglobin Concent 30.2 L, Red Cell Distribution Width 19.0 H Vital Signs Date Time Temp Pulse Resp B/P Pulse Ox O2 Delivery O2 Flow Rate FiO2 12/25/16 09:00 Room Air 12/25/16 08:06 100 110/58 12/25/16 06:00 98.2 18 94 I&O- Last 24 Hours up to 6 AM 12/25/16 06:00 Intake Total 1560 ml Output Total 35 ml Balance 1525 ml NGHIA EVERETT MD Dec 25, 2016 11:57
--- NOTE | 2016-12-25 12:54 | IPN ---
DATE: 12/25/2016 Mr. Fernandez is seen this morning during hemodialysis. He underwent right lpgnk-avs-aiau amputation two days ago and has been doing well. He denies any nausea, vomiting, dyspnea or chest pain. He also has rapid atrial fibrillation, which has improved, and the patient has been transferred to regular medical floor since yesterday. PHYSICAL EXAMINATION: Temperature 98.2 degrees Fahrenheit, heart rate 100 per minute and respiratory rate 18 per minute. Blood pressure 110/58 mmHg and oxygen saturation 94% on room air. His head is atraumatic. He is edentulous without any oral thrush or ulcers. Ears, nose and throat are unremarkable. Pupils equal and reactive to light and sclera is anicteric. Heart sounds are tachycardiac and irregular in rhythm. Lungs are clear to auscultation. Abdomen is soft and nontender and without palpable organomegaly. Extremities have no cyanosis or clubbing. His left forearm AV fistula is functioning well. He has recent right pjcon-hyd-nsey amputation 2 days ago and dressing is intact. Prior left gbnup-ceu-ykkd amputation is well healed. Today's labs show WBC count 9.9, hemoglobin 7.6 and hematocrit 25.3. Platelets 189. Sodium 131 and potassium 5.0. BUN 41 and creatinine 6.08. Calcium 8.5 and phosphorus 5.7. Albumin is 2.0. PROBLEMS: 1. End-stage renal disease. The patient is being dialyzed today. It is his regular dialysis day, and he will complete his 3-1/2-hour treatment today. We are removing about 3 liters fluid as tolerated. 2. Hyponatremia related to end-stage renal disease and likely to improve with hemodialysis today. No other intervention is indicated. 3. Blood loss anemia. The patient has drop in his hemoglobin and hematocrit following his right leg surgery. He will be given 2 units of packed red blood cells during dialysis today. 4. History of rapid atrial fibrillation. Ventricular rate is reasonably well-controlled. At present, he is not suitable for anticoagulation due to right zrtkz-opz-atsd amputation done just 2 days ago. I believe that in the long-term he is a high risk for anticoagulation due to risk of falls with bilateral axxep-wxd-zypm amputations and also possible GI bleed with blood loss anemia.
[2016-12-25 14:00] VITALS: BP 138/60
[2016-12-25] MEDS: CHECK TO SEE IF PATIENT IS RECEIVING DIALYSIS TODAY AND REFER TO THE VANCOMYCIN ORDER XX SCH (15:01)
[2016-12-25] MEDS: VANCOMYCIN HCL 1,000 MG, VIAL MATE ADAPTER 1 EACH in D5W 250 ML IV SCH (15:09)
[2016-12-25] MEDS: MEROPENEM INJ 500 MG in D5W MINI-BAG PLUS 100 ML IV SCH (16:19)
[2016-12-25] MEDS: GABAPENTIN 300 MG CAP PO SCH (20:45)
[2016-12-25 21:15] VITALS: BP 129/60
[2016-12-26] MEDS: NORCO, ANEXSIA 5/325MG TABLET (HYDROcodone/ACETAMINOPHEN) PO PRN ×3 (00:21→20:18)
[2016-12-26 06:00] VITALS: BP 120/59
[2016-12-26] MEDS: METOPROLOL TART 25 MG TABLET PO SCH ×4 (06:05→23:25)
[2016-12-26] MEDS: SODIUM CHLORIDE 0.9% INJ 10 ML SYR IV SCH ×3 (06:05→20:19)
[2016-12-26 06:42] LABS: ALBUMIN 2.1 GM/DL (3.2-5.2); CALCIUM LEVEL 7.9 MG/DL (8.8-10.2); CREATININE FOR GFR 4.22 MG/DL (0.70-1.30); GLOMERULAR FILTRATION RATE 18.2 (>49); PHOSPHORUS LEVEL 4.3 MG/DL (2.5-4.9); POTASSIUM SERUM 4.4 MEQ/L (3.5-5.1); VANCOMYCIN RANDOM 26.9 UG/ML
[2016-12-26] MEDS: NEPHRO-VIT TAB (NEPHROCAPS) PO SCH (07:49)
[2016-12-26] MEDS: VITAMIN D 1,000 INTERNATIONAL UNITS TABLET PO SCH (07:49)
[2016-12-26] MEDS: diltiaZEM **CD** 180 MG CAP PO SCH (07:50)
[2016-12-26] MEDS: (RENVELA) SEVELAMER **CARBONate** 800 MG TAB PO SCH ×3 (07:50→17:01)
[2016-12-26] MEDS: OMEPRAZOLE 20 MG CAP PO SCH (07:50)
[2016-12-26 08:21] LABS: MEAN CORPUSCULAR HEMOGLOBIN 24.7 pg (27.0-33.0); MEAN CORPUSCULAR HGB CONC 30.8 g/dl (32.0-36.5); MEAN CORPUSCULAR VOLUME 80.1 fl (80.0-96.0); RED CELL DISTRIBUTION WIDTH 18.7 % (11.5-14.5)
[2016-12-26 08:23] LABS: CALCIUM LEVEL 8.8 MG/DL (8.8-10.2); CREATININE FOR GFR 4.33 MG/DL (0.70-1.30); GLOMERULAR FILTRATION RATE 17.7 (>49); POTASSIUM SERUM 4.3 MEQ/L (3.5-5.1)
--- NOTE | 2016-12-26 10:14 | IPNPDOC ---
Date Seen The patient was seen on 12/26/16. Progress Note Subjective: Patient is a 66 year old male with a PMHx of ESRD (MWF), Diastolic CHF, PVD, Liver cirrhosis (by imaging), Prostate CA and Chronic A. fib who presented from dialysis because of a fever. Upon arrival he was also found to be in a.fib with RVR and in severe sepsis. He required IV fluid resuscitation and broad spectrum antibiotics. The likely source of his infection is considered to be from right toe gangrene. Patient was seen and examined at the bedside. He denies any problems today. Objective: Vitals (See below) General: Lying in chair, no acute distress, comfortable, AAOx3 HEENT: NC, AT CVS: RRR, +S1S2, systolic murmur. Lungs: Fair air entry b/l, -w/r/r Abdomen: Soft, ND, NT, +BSx4 Extremities: Left BKA, s/p R BKA - dressing in place Assessment and Plan: 1. Sepsis - likely 2/2 infection from infected right foot gangrenous 3rd digit - History of having vascular surgery evaluation in [place] - Presented with fever and hypotension; received IV fluid resuscitation initially - No lactic acid available from admission - Cultures from wound positive for: Providencia Rettgeri, Staph aureus, Enterococcus Faecalis - c/w Meropenem ( day # 4)and Vancomycin (Day #8) based on susceptibility.Initially pateint was on levofloxacin which was changed to meropenem after cultures. - s/p R BKA with Dr. Madrigal - appreciate their input 2. s/p A. fib with RVR - was uncontrolled in the setting of sepsis - HR better controlled - c/w lopressor, cardizem and digoxin - Will need to restart anticoagulation with ASA and Eliquis in next few days - Minimal blood loss from wound; awaiting Hg to stabilize 3. Anemia of chronic disease - 2/2 ESRD and post surgical blood loss. - s/p 5 units PRBC - will continue to follow 4. ESRD on HD (MWF) - Dr. Jean-Baptiste (Nephrology) consulted - appreciate their input 5. Thrombocytopenia - likely 2/2 cirrhosis - no evidence of bleeding - will continue to monitor 6. Hx of Diastolic CHF 7. Hx of Liver cirrhosis (by imaging) 8. Hx of Prostate CA 9. DVT prophylaxis - will need to start full anticoagulation within next few days Code status - DNI, but not DNR VS, I&O, 24H, Fishbone Vital Signs/I&O Vital Signs Date Time Temp Pulse Resp B/P Pulse Ox O2 Delivery O2 Flow Rate FiO2 12/26/16 09:00 Room Air 12/26/16 07:50 92 120/59 12/26/16 06:00 97.7 18 96 I&O- Last 24 Hours up to 6 AM 12/26/16 06:00 Intake Total 1480 ml Output Total 2010 ml Balance -530 ml Laboratory Data 24H LABS Laboratory Tests 2 12/26/16 06:01: Albumin 2.1L, Blood Urea Nitrogen 24H, Creatinine 4.22H, Sodium Level 136, Potassium Level 4.4, Chloride Level 95L, Carbon Dioxide Level 32, Anion Gap 9, Calcium Level 7.9L, Glomerular Filtration Rate 18.2L, Phosphorus Level 4.3#, Random Vancomycin Level 26.9 12/26/16 08:00: Blood Urea Nitrogen 26H, Creatinine 4.33H, Sodium Level 135L, Potassium Level 4.3, Chloride Level 95L, Carbon Dioxide Level 31, Anion Gap 9, Calcium Level 8.8 , Glomerular Filtration Rate 17.7L CBC/BMP Laboratory Tests 12/26/16 06:01 Anion Gap 9 12/26/16 08:00 Calcium Level 8.8, Red Blood Count 3.89 L, Mean Corpuscular Volume 80.1, Mean Corpuscular Hemoglobin 24.7 L, Mean Corpuscular Hemoglobin Concent 30.8 L, Red Cell Distribution Width 18.7 H Microbiology Microbiology 12/19/16 Blood Culture - Final, Complete NO GROWTH AFTER 5 DAYS 12/19/16 Blood Culture - Final, Complete NO GROWTH AFTER 5 DAYS 12/19/16 Gram Stain - Final, Complete 12/19/16 Sputum Culture - Final, Complete 12/19/16 MRSA Screen - Final, Complete 12/20/16 Gram Stain - Final, Complete 12/20/16 Wound Culture - Final, Complete Providencia Rettgeri Staphylococcus Aureus Enterococcus Faecalis PENNY BERGMAN MD Dec 26, 2016 10:14
[2016-12-26 14:00] VITALS: BP 119/56
[2016-12-26] MEDS: CHECK TO SEE IF PATIENT IS RECEIVING DIALYSIS TODAY AND REFER TO THE VANCOMYCIN ORDER XX SCH (15:09)
[2016-12-26] MEDS: MEROPENEM INJ 500 MG in D5W MINI-BAG PLUS 100 ML IV SCH (17:01)
[2016-12-26] MEDS: GABAPENTIN 300 MG CAP PO SCH (20:19)
[2016-12-26 20:40] VITALS: BP 115/55
[2016-12-27] MEDS: METOPROLOL TART 25 MG TABLET PO SCH ×3 (05:24→17:08)
[2016-12-27] MEDS: SODIUM CHLORIDE 0.9% INJ 10 ML SYR IV SCH ×3 (05:25→22:00)
[2016-12-27 05:49] LABS: MEAN CORPUSCULAR HEMOGLOBIN 25.5 pg (27.0-33.0); MEAN CORPUSCULAR HGB CONC 31.7 g/dl (32.0-36.5); MEAN CORPUSCULAR VOLUME 80.4 fl (80.0-96.0); RED CELL DISTRIBUTION WIDTH 19.1 % (11.5-14.5); WHITE BLOOD COUNT 8.9 K/mm3 (4.0-10.0)
[2016-12-27 06:13] LABS: ALBUMIN 2.1 GM/DL (3.2-5.2); CREATININE FOR GFR 5.75 MG/DL (0.70-1.30); GLOMERULAR FILTRATION RATE 12.7 (>49); PHOSPHORUS LEVEL 5.3 MG/DL (2.5-4.9); POTASSIUM SERUM 4.6 MEQ/L (3.5-5.1)
[2016-12-27] MEDS: (RENVELA) SEVELAMER **CARBONate** 800 MG TAB PO SCH ×3 (09:24→17:07)
[2016-12-27] MEDS: NEPHRO-VIT TAB (NEPHROCAPS) PO SCH (09:26)
[2016-12-27] MEDS: OMEPRAZOLE 20 MG CAP PO SCH (09:26)
[2016-12-27] MEDS: diltiaZEM **CD** 180 MG CAP PO SCH (09:26)
[2016-12-27] MEDS: VITAMIN D 1,000 INTERNATIONAL UNITS TABLET PO SCH (09:26)
--- NOTE | 2016-12-27 10:51 | IPNPDOC ---
Date Seen The patient was seen on 12/27/16. Progress Note Progress Note Subjective: Patient is a 66 year old male with a PMHx of ESRD (MWF), Diastolic CHF, PVD, Liver cirrhosis (by imaging), Prostate CA and Chronic A. fib who presented from dialysis because of a fever. Upon arrival he was also found to be in a.fib with RVR and in severe sepsis. He required IV fluid resuscitation and broad spectrum antibiotics. The likely source of his infection is considered to be from right toe gangrene. Patient was seen and examined at the bedside. He denies any problems today. Objective: Vitals (See below) General: sitting up in bed, no acute distress, comfortable, AAOx3 HEENT: NC, AT CVS: RRR, +S1S2, systolic murmur. Lungs: Fair air entry b/l, -w/r/r Abdomen: Soft, ND, NT, +BSx4 Extremities: Left BKA, s/p R BKA - dressing in place Assessment and Plan: 1. Sepsis - likely 2/2 infection from infected right foot gangrenous 3rd digit - History of having vascular surgery evaluation in [place] - Presented with fever and hypotension; received IV fluid resuscitation initially - No lactic acid available from admission - Cultures from wound positive for: Providencia Rettgeri, Staph aureus, Enterococcus Faecalis - c/w Meropenem ( day # 5)and Vancomycin (Day #9) based on susceptibility.Initially Patient was on levofloxacin which was changed to meropenem after cultures. - s/p R BKA with Dr. Madrigal - appreciate their input 2. s/p A. fib with RVR - was uncontrolled in the setting of sepsis - HR better controlled - c/w lopressor, cardizem and digoxin - Will need to restart anticoagulation with ASA and Eliquis in next few days - Minimal blood loss from wound; awaiting Hg to stabilize 3. Anemia of chronic disease - 2/2 ESRD and post surgical blood loss. - s/p 5 units PRBC - will continue to follow 4. ESRD on HD (MWF) - Dr. Jean-Baptiste (Nephrology) consulted - appreciate their input 5. Thrombocytopenia - likely 2/2 cirrhosis - no evidence of bleeding - will continue to monitor 6. Hx of Diastolic CHF 7. Hx of Liver cirrhosis (by imaging) 8. Hx of Prostate CA 9. DVT prophylaxis - will need to start full anticoagulation within next few days Code status - DNI, but not DNR VS, I&O, 24H, Fishbone Vital Signs/I&O Vital Signs Date Time Temp Pulse Resp B/P Pulse Ox O2 Delivery O2 Flow Rate FiO2 12/27/16 09:26 72 125/65 12/26/16 21:06 17 12/26/16 20:40 96.9 97 Room Air I&O- Last 24 Hours up to 6 AM 12/27/16 06:00 Intake Total 840 ml Output Total 0 ml Balance 840 ml Laboratory Data 24H LABS Laboratory Tests 2 12/27/16 05:38: Albumin 2.1L, Blood Urea Nitrogen 38H, Creatinine 5.75H, Sodium Level 132L, Potassium Level 4.6, Chloride Level 93L, Carbon Dioxide Level 29, Anion Gap 10, Calcium Level 9.0, Glomerular Filtration Rate 12.7L, Phosphorus Level 5.3#H CBC/BMP Laboratory Tests 12/27/16 05:38 Anion Gap 10, Red Blood Count 3.59 L, Mean Corpuscular Volume 80.4, Mean Corpuscular Hemoglobin 25.5 L, Mean Corpuscular Hemoglobin Concent 31.7 L, Red Cell Distribution Width 19.1 H Microbiology Microbiology 12/19/16 Blood Culture - Final, Complete NO GROWTH AFTER 5 DAYS 12/19/16 Blood Culture - Final, Complete NO GROWTH AFTER 5 DAYS 12/19/16 Gram Stain - Final, Complete 12/19/16 Sputum Culture - Final, Complete 12/19/16 MRSA Screen - Final, Complete 12/20/16 Gram Stain - Final, Complete 12/20/16 Wound Culture - Final, Complete Providencia Rettgeri Staphylococcus Aureus Enterococcus Faecalis PENNY BERGMAN MD Dec 27, 2016 10:51
[2016-12-27] MEDS ORDERED: MIRALAX *UNIT DOSE* 17GM PACKET PO PRN (11:15)
[2016-12-27 14:00] VITALS: BP 115/57
[2016-12-27] MEDS: CHECK TO SEE IF PATIENT IS RECEIVING DIALYSIS TODAY AND REFER TO THE VANCOMYCIN ORDER XX SCH (16:00)
[2016-12-27] MEDS: MEROPENEM INJ 500 MG in D5W MINI-BAG PLUS 100 ML IV SCH (17:08)
[2016-12-27] MEDS: GABAPENTIN 300 MG CAP PO SCH (20:06)
[2016-12-27 22:00] VITALS: BP 116/58
[2016-12-28] MEDS: METOPROLOL TART 25 MG TABLET PO SCH ×4 (00:14→17:40)
[2016-12-28 06:00] VITALS: BP 106/53
[2016-12-28] MEDS: SODIUM CHLORIDE 0.9% INJ 10 ML SYR IV SCH (06:00)
[2016-12-28] MEDS: OMEPRAZOLE 20 MG CAP PO SCH (06:17)
[2016-12-28] MEDS: VITAMIN D 1,000 INTERNATIONAL UNITS TABLET PO SCH (06:17)
[2016-12-28] MEDS: NEPHRO-VIT TAB (NEPHROCAPS) PO SCH (06:17)
[2016-12-28] MEDS: DIGOXIN 0.125 MG TAB PO SCH (06:17)
[2016-12-28] MEDS: (RENVELA) SEVELAMER **CARBONate** 800 MG TAB PO SCH ×3 (06:17→17:40)
[2016-12-28 06:23] LABS: ALBUMIN 2.1 GM/DL (3.2-5.2); CALCIUM LEVEL 8.4 MG/DL (8.8-10.2); CREATININE FOR GFR 7.31 MG/DL (0.70-1.30); GLOMERULAR FILTRATION RATE 9.7 (>49); PHOSPHORUS LEVEL 5.8 MG/DL (2.5-4.9)
[2016-12-28 06:26] LABS: POTASSIUM SERUM 5.2 MEQ/L (3.5-5.1)
[2016-12-28 06:30] LABS: MEAN CORPUSCULAR HEMOGLOBIN 25.1 pg (27.0-33.0); MEAN CORPUSCULAR HGB CONC 31.3 g/dl (32.0-36.5); MEAN CORPUSCULAR VOLUME 80.1 fl (80.0-96.0); RED CELL DISTRIBUTION WIDTH 19.5 % (11.5-14.5); WHITE BLOOD COUNT 9.8 K/mm3 (4.0-10.0)
[2016-12-28] MEDS: diltiaZEM **CD** 180 MG CAP PO SCH (08:09)
--- NOTE | 2016-12-28 09:23 | IPN ---
DATE: 12/26/2016 SUBJECTIVE: Patient was seen and examined at the bedside today in the morning. He does not have any active complaints. Patient got the hemodialysis done yesterday. He tolerated the hemodialysis procedure well. His pain is well optimized at this time. REVIEW OF SYSTEMS: Patient denies any fever, chills, rigors, headache, nausea, vomiting, chest pain, shortness of breath, pain in abdomen, constipation, or diarrhea at this time. Rest of review of system is negative. OBJECTIVE: VITAL SIGNS: Temperature is 97.5 degrees Fahrenheit. Blood pressure 110/55, pulse 83, respiratory rate of 18, saturating 95% on room air. INTAKE AND OUTPUT: Patient got hemodialysis done yesterday. Ultrafiltration with hemodialysis was 2 liter. PHYSICAL EXAMINATION: GENERAL: Patient is awake, alert, oriented times three, laying in bed, in no apparent distress. HEAD and NECK EXAM: Patient has a squint. Mucous membranes are moist. Neck is supple. There is no jugular venous distention (JVD). CARDIOVASCULAR: Patient has irregularly irregular heart rate. No murmur, rub or gallop. RESPIRATORY: Chest is clear to auscultation bilaterally. Bilateral equal air entry. ABDOMEN: Is soft. Positive bowel sounds. Nontender. No organomegaly. EXTREMITIES: Patient has bilateral uekra-vzqq-yfddcunmuvi. A fresh right rljen-bois-ylbvzqsjvv stump is covered with a dressing, and he has Arcenio-Feliciano (J-P) drainage as well. Patient has left forearm AV fistula, which has a positive thrill and bruit. CENTRAL NERVOUS SYSTEM (AUTOMOBILE DEALER): No focal neurological deficit. Power is 5/5 in all extremities. Patient is oriented times three. PSYCHIATRIC: Normal mood and affect. LABORATORY REVIEW: CBC showed WBC of 10, hemoglobin 9.6, platelets of 180. BMP showed sodium 135, potassium 4.3, chloride 95, bicarbonate 31, BUN 26, creatinine 4.3. Calcium is 8.8. CURRENT MEDICATIONS: Patient's medications were all reviewed by me. He continues to be on intravenous (IV) vancomycin and meropenem. There is no other change in the medications at this time as compared with yesterday. ASSESSMENT: 66-year-old male with past medical history of end-stage renal disease on hemodialysis, admitted this time with sepsis secondary to a right foot infection status post right gpekr-ezzz-wyhdswlhaj. PLAN: 1. End-stage renal disease on hemodialysis. Patient has regular dialysis days on Wednesday, Wednesday, Wednesday. He was dialyzed yesterdaty. He tolerated the hemodialysis procedure well. Next hemodynamic session will be on 12/28/2016. 2. Blood loss anemia. Patient got 2 units of packed red blood cells (PRBC) transfusion yesterday with hemodialysis. His hemoglobin is 9.6. Continue current dose of Aranesp 300 mcg IV with hemodialysis at this time. 3. Atrial fibrillation. Patient's heart rate is well controlled at this time. Continue current dose of digoxin 0.125 mg by mouth Wednesday, Wednesday, Wednesday. Continue Cardizem 180 mg by mouth daily, and he is also on metoprolol 25 mg every 6 hours. 4. Sepsis secondary to right foot infection, which his right foot culture is growing multiple organisms, including Providencia, Staphylococcus aureus, Enterococcus faecalis. Patient is currently on vancomycin and meropenem. Patient's blood cultures were negative. I believe the source of infection is gone. Patient's right ilmur-htyp-ekkdhunevm was done on 12/23/2016. we should be able to stop the antibiotics. I shall discuss stopping antibiotics with the primary team. MARIA ALEJANDRA
--- NOTE | 2016-12-28 13:25 | IPNPDOC ---
Text Note Date of Service The patient was seen on 12/28/16. NOTE Subjective: Patient is a 66 year old male with a PMHx of ESRD (MWF), Diastolic CHF, PVD, Liver cirrhosis (by imaging), Prostate CA and Chronic A. fib who presented from dialysis because of a fever. Upon arrival he was also found to be in a.fib with RVR and in severe sepsis. He required IV fluid resuscitation and broad spectrum antibiotics. The likely source of his infection is considered to be from right toe gangrene. Patient was seen and examined at the bedside. He reports that he is having some difficulty with bowel movements. He denies any other pain. Objective: Vitals (See below) General: sitting up in bed, no acute distress, comfortable, AAOx3 HEENT: NC, AT CVS: RRR, +S1S2, systolic murmur. Lungs: Fair air entry b/l, -w/r/r Abdomen: Soft, ND, NT, +BSx4 Extremities: Left BKA, s/p R BKA - dressing in place, CHRISTIAN drain in place - minimal serosanguineous fluid Assessment and Plan: 1. Sepsis - likely 2/2 infection from infected right foot gangrenous 3rd digit - History of having vascular surgery evaluation in [place] - Presented with fever and hypotension; received IV fluid resuscitation initially - No lactic acid available from admission - Cultures from wound positive for: Providencia Rettgeri, Staph aureus, Enterococcus Faecalis - On Meropenem (Day #6) and Vancomycin (Day #10) based on susceptibility - Initially patient was on levofloxacin but was changed after cultures - Will discontinue all antibiotics today - s/p R BKA with Dr. Madrigal - appreciate their input - Plan on discharge when ocean transportation intermediary care is available 2. s/p A. fib with RVR - was uncontrolled in the setting of sepsis - HR better controlled - c/w Lopressor, Cardizem and Digoxin - Minimal blood loss from wound - Will restart anticoagulation with ASA and Eliquis today (re: Hg stable) 3. Anemia of chronic disease - 2/2 ESRD and post surgical blood loss. - s/p 5 units PRBC - will continue to follow 4. ESRD on HD (MWF) - Dr. Jean-Baptiste (Nephrology) consulted - appreciate their input 5. Thrombocytopenia - likely 2/2 cirrhosis - no evidence of bleeding - will continue to monitor 6. Hx of Diastolic CHF 7. Hx of Liver cirrhosis (by imaging) 8. Hx of Prostate CA 9. DVT prophylaxis - will restart full anticoagulation now VS,Fishbone, I+O VS, Fishbone, I+O Laboratory Tests 12/28/16 05:29 Anion Gap 11, Red Blood Count 3.69 L, Mean Corpuscular Volume 80.1, Mean Corpuscular Hemoglobin 25.1 L, Mean Corpuscular Hemoglobin Concent 31.3 L, Red Cell Distribution Width 19.5 H Vital Signs Date Time Temp Pulse Resp B/P Pulse Ox O2 Delivery O2 Flow Rate FiO2 12/28/16 09:00 Room Air 12/28/16 08:09 69 146/63 12/28/16 06:00 98.6 18 98 I&O- Last 24 Hours up to 6 AM 12/28/16 06:00 Intake Total 1060 ml Output Total 0 ml Balance 1060 ml NGHIA EVERETT MD Dec 28, 2016 13:25
[2016-12-28 14:00] VITALS: BP 121/54
[2016-12-28] MEDS: ASPIRIN 81 MG ENTERIC TAB PO SCH (14:30)
[2016-12-28] MEDS: APIXABAN 2.5 MG TAB (ELIQUIS) PO SCH ×2 (14:30→20:00)
--- NOTE | 2016-12-28 18:58 | IPN ---
DATE: 12/27/2016 SUBJECTIVE: The patient was seen and examined at the bedside today in the morning. He does not have any active complaints. The patient is afebrile, hemodynamically stable. REVIEW OF SYSTEMS: The patient denies any fever, chills, rigors, headache, nausea, vomiting, chest pain, shortness of breath, pain in abdomen, constipation or diarrhea. The rest of the review of systems is negative. OBJECTIVE: VITAL SIGNS: Temperature 96.3 degrees Fahrenheit, blood pressure is 113/66, pulse is 81, respiratory rate 16, saturating 95% on room air. Intake and output: There is no urine output recorded. There is no bed scale weight available. PHYSICAL EXAMINATION: General: The patient is awake, alert, oriented to time, place. Laying in the bed. No apparent distress. Head and neck exam: The patient has a squint. Pupils are reactive to light. Mucous membranes are moist. Neck is supple. There is no jugular venous distention (JVD). Cardiovascular: The patient has irregularly irregular heart rate. No murmur, rub or gallop. Respiratory: Chest is clear to auscultation bilaterally. Bilateral equal air entry. No rales or rhonchi. Abdomen is soft, positive bowel sounds. Nontender. No ascites. No organomegaly. Extremities: The patient has bilateral below knee amputation, right below knee amputation stump is fresh with the dressing and CHRISTIAN drainage. Central nervous system: No focal neurological deficit. Power is 5/5 in bilateral upper extremities. AV access: The patient has a left forearm AV fistula with a positive thrill and bruit. LAB REVIEW: CBC showed a WBC of 8.9, hemoglobin 9.2, platelets are 173. BMP shows sodium 132, potassium 4.6, chloride 93, bicarbonate 29, BUN 38, creatinine is 5.7. Phosphorous is 5.3. CURRENT MEDICATIONS: The patient's medications were all reviewed by me. There is no change in the medications at this time. ASSESSMENT: 66-year-old male with past medical history of end-stage renal disease on hemodialysis every Wednesday, Wednesday and Wednesday admitted this time with fever secondary to right foot infection, status post right below knee amputation. PLAN: 1. End-stage renal disease on hemodialysis. The patient's regular hemodialysis days are Wednesday, Wednesday and Wednesday. He will be dialyzed according to his regular schedule tomorrow. 2. Blood loss anemia. The patient's hemoglobin is stable at 9.2. No urgent need of blood transfusion at this time. Continue the IV Venofer and Aranesp at 300 mcg once a week on hemodialysis. 3. Chronic kidney disease. Mineral bone disease. The patient's phosphorous is high. Continue current dose of Renvela with meals at this time. 4. Hyponatremia. Hyponatremia is secondary to end-stage renal disease and slight hypovolemia. The patient will be dialyzed tomorrow and ultrafiltration will help improve the sodium levels. 5. Atrial fibrillation. The patient's heart rate is uncontrolled at this time. Continue current dose of digoxin, metoprolol and diltiazem at this time. 6. Right foot infection, status post right below the knee amputation. Management is as per surgical team. The patient continues to be on IV antibiotics. I recommend stopping the IV antibiotics at this time since the source of infection is gone.
[2016-12-28] MEDS: GABAPENTIN 300 MG CAP PO SCH (20:00)
[2016-12-28 22:00] VITALS: BP 120/58
[2016-12-29] MEDS: METOPROLOL TART 25 MG TABLET PO SCH ×4 (01:55→17:53)
[2016-12-29 05:56] LABS: ALBUMIN 2.1 GM/DL (3.2-5.2); CALCIUM LEVEL 8.7 MG/DL (8.8-10.2); CREATININE FOR GFR 4.86 MG/DL (0.70-1.30); GLOMERULAR FILTRATION RATE 15.5 (>49); PHOSPHORUS LEVEL 3.5 MG/DL (2.5-4.9); POTASSIUM SERUM 4.3 MEQ/L (3.5-5.1)
[2016-12-29 05:58] LABS: MEAN CORPUSCULAR HEMOGLOBIN 25.2 pg (27.0-33.0); MEAN CORPUSCULAR HGB CONC 31.5 g/dl (32.0-36.5); MEAN CORPUSCULAR VOLUME 79.9 fl (80.0-96.0); RED CELL DISTRIBUTION WIDTH 19.1 % (11.5-14.5); WHITE BLOOD COUNT 9.6 K/mm3 (4.0-10.0)
[2016-12-29 06:00] VITALS: BP 116/58
[2016-12-29] MEDS: NORCO, ANEXSIA 5/325MG TABLET (HYDROcodone/ACETAMINOPHEN) PO PRN (06:20)
[2016-12-29] MEDS: VITAMIN D 1,000 INTERNATIONAL UNITS TABLET PO SCH (08:18)
[2016-12-29] MEDS: ASPIRIN 81 MG ENTERIC TAB PO SCH (08:18)
[2016-12-29] MEDS: APIXABAN 2.5 MG TAB (ELIQUIS) PO SCH ×2 (08:18→20:50)
[2016-12-29] MEDS: OMEPRAZOLE 20 MG CAP PO SCH (08:18)
[2016-12-29] MEDS: (RENVELA) SEVELAMER **CARBONate** 800 MG TAB PO SCH ×3 (08:19→17:53)
[2016-12-29] MEDS: NEPHRO-VIT TAB (NEPHROCAPS) PO SCH (08:19)
[2016-12-29] MEDS: diltiaZEM **CD** 180 MG CAP PO SCH (08:19)
--- NOTE | 2016-12-29 10:49 | IPN ---
DATE OF SERVICE: 12/28/2016 SUBJECTIVE: Patient was seen and examined at the bedside today in the morning getting hemodialysis procedure. He was tolerating the hemodialysis procedure well. No active complaints. REVIEW OF SYSTEMS: Patient denies any fever, chills, rigors, headache, nausea, vomiting, chest pain, shortness of breath, pain abdomen, constipation, or diarrhea. Rest of review of systems is negative. OBJECTIVE: VITAL SIGNS: Temperature is 98.6 degrees Fahrenheit. Blood pressure is 121/54, pulse is 86, respiratory rate of 18, saturating 97% on room air. INTAKE AND OUTPUT: There is no urine output recorded. Ultrafiltration goal with hemodialysis today is 3 liters. Bed scale weight is not available. PHYSICAL EXAMINATION: GENERAL: Patient is awake, alert, oriented times three, lying in bed getting hemodialysis done, no apparent distress. HEAD AND NECK EXAMINATION: Extraocular muscles intact. Pupils equally round and reactive to light. The patient has a squint. Mucous membranes are moist. Neck is supple. There is no jugular venous distention (JVD). CARDIOVASCULAR: S1, S2, irregularly irregular heart rate. No murmur, rub or gallop. RESPIRATORY: Chest is clear to auscultation bilaterally. Bilateral equal air entry. No rales or rhonchi. ABDOMEN: Soft. Positive bowel sounds. Nontender. No ascites. No organomegaly. EXTREMITIES: Patient has bilateral below-knee amputations. Right below-knee amputation stump is fresh. It has a dressing and Arcenio-Feliciano (CHRISTIAN) drainage. CENTRAL NERVOUS SYSTEM (BAKER BENCH): No focal neurological deficit. Power is 5/5 in all extremities. ARTERIOVENOUS (AV) ACCESS: Patient has a left forearm AV fistula which is being used for hemodialysis with no issues during dialysis. LABORATORY REVIEW: CBC showed WBC 9.8, hemoglobin 9.3, platelets of 187. BMP showed sodium 128, potassium 5.2, chloride 92, bicarbonate 25, BUN 50, creatinine 7.3. Calcium is 8.4. Phosphorus is 5.8, which is going up. Albumin is 2.1. CURRENT MEDICATIONS: Patient's medications were all reviewed by me. His vancomycin and meropenem have been stopped. His Renvela dose was increased to 1800 mg by mouth three times a day with meals by me today morning. There is no other change in the medications at this time. ASSESSMENT: 66-year-old male with past medical history of end-stage renal disease on hemodialysis every Wednesday, Wednesday, Wednesday, admitted this time with fever secondary to a right foot infection status post right below-knee amputation. PLAN: 1. End-stage renal disease on hemodialysis. Patient is being dialyzed according to his regular schedule. We shall try to do an ultrafiltration of 3 liters as tolerated by his blood pressure today. 2. Hyperkalemia. Patient is being dialyzed against a 2K bath. Potassium will improve after hemodialysis. 3. Acute blood loss anemia. Patient is status post packed red blood cells (PRBC) transfusion. His hemoglobin is stable at 9.3. Continue current dose of Venofer 100 mg intravenous (IV) with hemodialysis and Aranesp 300 mcg IV once a week during hemodialysis. 4. Hyperphosphatemia. Patient's phosphorus level was going up. I have increased his dose of Renvela to two tablets by mouth three times a day with meals. 5. Hyponatremia. It is secondary to hypovolemia. Hyponatremia would improve with ultrafiltration during hemodialysis. 6. Right foot infection status post right below-knee amputation. Patient's antibiotics have been stopped since the source of infection is gone. The rest of the management is as per surgical service.
--- NOTE | 2016-12-29 13:33 | IPNPDOC ---
Subjective Date Seen The patient was seen on 12/29/16. Subjective Chief Complaint/HPI The patient is a 66-year-old male admitted with a reason for visit of Tachycardia;Febrile, Gangrene. General: Denies: Chills, Night Sweats Constitutional: Denies: Chills, Fever Eyes: Denies: Pain, Vision change ENT: Denies: Ear Pain, Head Aches Skin: Denies: Lesions, Rash Pulmonary: Denies: Cough, Dyspnea Cardiovascular: Denies: Chest Pain, Palpitations Gastrointestinal: Denies: Abdominal Pain, Nausea, Vomiting Objective Physical Examination General Exam: Positive: Alert, Cooperative, No Acute Distress ENT Exam: Positive: Atraumatic, Mucous membr. moist/pink Chest Exam: Positive: Clear to auscultation, Normal air movement Heart Exam: Positive: Normal S1, Normal S2, Rate Normal Abdomen Exam: Positive: Soft, Negative: Tenderness Extremity Exam: Positive: Other (bilateral below the knee amputations) Assessment /Plan Plan/VTE VTE Prophylaxis Ordered?: Yes (already on Eliquis) Plan 1. Sepsis - likely 2/2 infection from infected right foot gangrenous 3rd digit s/p R BKA with Dr. Madrigal of surgery Cultures from wound positive for: Providencia Rettgeri, Staph aureus, Enterococcus Faecalis Status post treatment with Meropenem/Vancomycin Plan on discharge when superintendent terminal care is available 2. s/p A. fib with RVR - was uncontrolled in the setting of sepsis Heart rate stable at this time Continue Lopressor, Cardizem and Digoxin Continue anticoagulation with ASA and Eliquis 3. Anemia of chronic disease - 2/2 ESRD and post surgical blood loss. s/p 5 units PRBC during this admission will continue to follow 4. ESRD on HD (MWF) Follows with Dr. Jean-Baptiste of nephrology here 5. Thrombocytopenia - likely 2/2 cirrhosis We'll continue to monitor 6. Hx of Diastolic CHF Appears volume compensated at this time 7. Hx of Liver cirrhosis (by imaging) 8. Hx of Prostate CA 9. DVT prophylaxis On Eliquis Disposition-the patient will need placement, we'll continue to follow with case management/PFS VS, I&O, 24H, Fishbone Vital Signs/I&O Vital Signs Date Time Temp Pulse Resp B/P Pulse Ox O2 Delivery O2 Flow Rate FiO2 12/29/16 11:52 79 119/56 12/29/16 10:38 Room Air 12/29/16 06:50 18 12/29/16 06:00 97.9 97 I&O- Last 24 Hours up to 6 AM 12/29/16 06:00 Intake Total 1540 ml Output Total 3000 ml Balance -1460 ml Laboratory Data 24H LABS Laboratory Tests 2 12/29/16 05:26: Albumin 2.1L, Blood Urea Nitrogen 27H, Creatinine 4.86H, Sodium Level 132L, Potassium Level 4.3, Chloride Level 95L, Carbon Dioxide Level 29, Anion Gap 8, Calcium Level 8.7L, Glomerular Filtration Rate 15.5L, Phosphorus Level 3.5# CBC/BMP Laboratory Tests 12/29/16 05:26 Anion Gap 8, Red Blood Count 3.76 L, Mean Corpuscular Volume 79.9 L, Mean Corpuscular Hemoglobin 25.2 L, Mean Corpuscular Hemoglobin Concent 31.5 L, Red Cell Distribution Width 19.1 H Microbiology Microbiology 12/19/16 Blood Culture - Final, Complete NO GROWTH AFTER 5 DAYS 12/19/16 Blood Culture - Final, Complete NO GROWTH AFTER 5 DAYS 12/27/16 Stool Occult Blood (SARAH) - Final, Complete 12/19/16 Gram Stain - Final, Complete 12/19/16 Sputum Culture - Final, Complete 12/19/16 MRSA Screen - Final, Complete 12/20/16 Gram Stain - Final, Complete 12/20/16 Wound Culture - Final, Complete Providencia Rettgeri Staphylococcus Aureus Enterococcus Faecalis CHAYITO RAMOS MD Dec 29, 2016 13:33
[2016-12-29 14:00] VITALS: BP 104/53
--- NOTE | 2016-12-29 17:22 | IPN ---
DATE: 12/29/2016 SUBJECTIVE: Patient was seen and examined at the bedside today in the morning. He does not have any active complaints. He tolerated the hemodialysis procedure well yesterday. REVIEW OF SYSTEMS: Patient denies any fever, chills, rigors, headache, nausea, vomiting, chest pain, shortness of breath, pain abdomen, constipation, or diarrhea. The rest of review of systems is negative. OBJECTIVE: VITAL SIGNS: Temperature is 97.9 degrees Fahrenheit, blood pressure is 116/58, pulse is 71, respiratory rate of 20, saturating 97% on room air. INTAKE AND OUTPUT: The patient got hemodialysis done yesterday. Ultrafiltration was 3 liters. Bed scale weight is not available. PHYSICAL EXAMINATION: GENERAL: Patient is awake, alert and oriented times three, laying in bed, in no apparent distress. HEAD AND NECK EXAMINATION: Extraocular muscles intact. The patient has a squint. Mucous membranes are moist. Neck is supple. There is no jugular venous distention (JVD). CARDIOVASCULAR: S1, S2, irregularly irregular heart rate. No murmur, rub or gallop. RESPIRATORY: Chest is clear to auscultation bilaterally. Bilateral equal air entry. No rales or rhonchi. ABDOMEN: Soft. Positive bowel sounds. Nontender. No ascites. No organomegaly. EXTREMITIES: Patient has bilateral below-knee amputations. Right below-knee amputation is fresh. He has a dressing and Arcenio-Feliciano (CHRISTIAN) drainage. 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 Power is 5/5 in bilateral upper extremities. ARTERIOVENOUS (AV) ACCESS: Patient has a left forearm AV fistula with positive thrill and bruit. LABORATORY REVIEW: CBC showed hemoglobin of 9.4. BMP showed sodium 132, potassium 4.3, chloride 95, bicarbonate 29, BUN 27, creatinine 4.8. Calcium is 8.7. Albumin is 2.1. CURRENT MEDICATIONS: Patient's medications were all reviewed by me. There is no change in the medications today as compared with yesterday except that his antibiotics have been stopped. ASSESSMENT: A 66-year-old male with a past medical history of end-stage renal disease on hemodialysis every Wednesday, Wednesday and Wednesday, admitted this time sepsis secondary to a right foot infection status post right below-knee amputation. PLAN: 1. End-stage renal disease on hemodialysis. Patient's regular days of dialysis are Wednesday, Wednesday and Wednesday. Next hemodialysis session will be tomorrow. 2. Acute blood loss anemia. Patient's hemoglobin is slowly improving now. It is 9.4. Continue current dose of Aranesp and Venofer with hemodialysis. No need of blood transfusion. 3. Hyponatremia. Hyponatremia is secondary to end-stage renal disease and fluid overload. He got ultrafiltration of three liters. His sodium improved from 128 to 132. Sodium is expected to improve with further hemodialysis and ultrafiltration. No urgent need of hemodialysis today. 4. Hyperphosphatemia. Patient's phosphorus improved to 3.5. Continue current dose of Renvela two tablets by mouth three times a day with meals. 5. Discharge planning. I talked to the case management today. Patient wants to come to [place]. However, there is no bed offer available in [facility]. Patient would likely have to go back to [place] whenever there is a bed available. We shall try to arrange outpatient hemodialysis session, whether it is in the [place] or [facility].
[2016-12-29] MEDS: GABAPENTIN 300 MG CAP PO SCH (20:50)
[2016-12-29 22:00] VITALS: BP 105/51
[2016-12-30] MEDS: NORCO, ANEXSIA 5/325MG TABLET (HYDROcodone/ACETAMINOPHEN) PO PRN (00:11)
[2016-12-30] MEDS: METOPROLOL TART 25 MG TABLET PO SCH ×4 (00:11→17:27)
[2016-12-30 05:32] LABS: MEAN CORPUSCULAR HEMOGLOBIN 25.1 pg (27.0-33.0); MEAN CORPUSCULAR VOLUME 80.8 fl (80.0-96.0); WHITE BLOOD COUNT 9.6 K/mm3 (4.0-10.0)
[2016-12-30 05:48] LABS: CALCIUM LEVEL 8.4 MG/DL (8.8-10.2); CREATININE FOR GFR 6.34 MG/DL (0.70-1.30); GLOMERULAR FILTRATION RATE 11.4 (>49); PHOSPHORUS LEVEL 4.8 MG/DL (2.5-4.9); POTASSIUM SERUM 4.8 MEQ/L (3.5-5.1)
[2016-12-30 06:00] VITALS: BP 105/52
[2016-12-30] MEDS: OMEPRAZOLE 20 MG CAP PO SCH (06:15)
[2016-12-30] MEDS: VITAMIN D 1,000 INTERNATIONAL UNITS TABLET PO SCH (06:16)
[2016-12-30] MEDS: ASPIRIN 81 MG ENTERIC TAB PO SCH (06:16)
[2016-12-30] MEDS: DIGOXIN 0.125 MG TAB PO SCH (06:16)
[2016-12-30] MEDS: NEPHRO-VIT TAB (NEPHROCAPS) PO SCH (06:16)
[2016-12-30] MEDS: APIXABAN 2.5 MG TAB (ELIQUIS) PO SCH ×2 (06:16→20:56)
[2016-12-30] MEDS: (RENVELA) SEVELAMER **CARBONate** 800 MG TAB PO SCH ×3 (06:52→17:27)
--- NOTE | 2016-12-30 13:39 | IPN ---
DATE OF SERVICE: 12/30/2016 SUBJECTIVE: The patient was seen and examined at the bedside today in the morning during hemodialysis procedure. He was tolerating the hemodialysis procedure well. No active complaints. REVIEW OF SYSTEMS: The patient denies any fever, chills, rigors, headache, nausea, vomiting, chest pain, shortness of breath, pain abdomen, constipation, or diarrhea. He does complain of some pain in the right below-knee amputation site. The rest of review of systems is negative. OBJECTIVE: VITAL SIGNS: Temperature is 96.6 degrees Fahrenheit, blood pressure is 107/54, pulse is 69, respiratory rate of 20, saturating 96% on room air. INTAKE AND OUTPUT: Urine output is not recorded. Bed scale weight is not available at this time. PHYSICAL EXAMINATION: GENERAL: The patient is awake, alert, oriented times three, lying in bed. No apparent distress. HEAD AND NECK EXAMINATION: Extraocular muscles intact. The patient has a squint. Mucous membranes are moist. Neck is supple. There is no jugular venous distention (JVD). CARDIOVASCULAR: S1, S2, irregularly irregular heart rate. No murmur, rub, and gallop. RESPIRATORY: Chest is clear to auscultation bilaterally. Bilateral equal air entry. No rales or rhonchi. ABDOMEN: Is soft, positive bowel sounds, nontender. No ascites. No organomegaly. EXTREMITIES: The patient has bilateral below-knee amputations. Right below-knee amputation is fresh. He has a dressing and Arcenio-Feliciano (CHRISTIAN) drain drainage in that. ARTERIOVENOUS (AV) ACCESS: The patient has a left forearm AV fistula, which is being used for dialysis. No problems with the fistula at this time. CENTRAL NERVOUS SYSTEM (COURT MONITOR): No focal neurological deficit. Power is 5/5 in all extremities. LABORATORY REVIEW: CBC showed a WBC 9.6, hemoglobin 9.4, platelets of 182. BMP showed sodium 129, potassium 4.8, chloride 92, bicarbonate is 27, BUN 37, creatinine 6.3, calcium is 8.4. CURRENT MEDICATIONS: There is no change in the patient's medications today as compared with yesterday. ASSESSMENT: A 66-year-old male with past medical history of end-stage renal disease on hemodialysis every Wednesday, Wednesday, Wednesday, admitted this time because of sepsis secondary to right foot infection, status post right below-knee amputation. PLAN: 1. End-stage renal disease, on hemodialysis. The patient is being dialyzed according to his regular Wednesday, Wednesday, Wednesday schedule. We shall try to do an ultrafiltration of around 3 as tolerated by his blood pressure. 2. Anemia secondary to blood loss in end-stage renal disease. The patient's hemoglobin is still suboptimal; however, he does not need any blood transfusion. Continue current dose of Aranesp 300 mcg intravenous (IV) with hemodialysis. 3. Hyponatremia secondary to hypervolemia. We shall try to do an ultrafiltration of 3 liters with hemodialysis. That would hopefully improve his hyponatremia. I have also decreased the dialysis sodium to 135, so he does not gain a lot of intradialytic weight. 4. Hyperphosphatemia. The patient's phosphorus level improved to 4.8 after increasing his Renvela dose to 1600 mg by mouth three times a day. DISCHARGE PLANNING: Social work is actively trying to get a care home placement for the patient because of his bilateral below-knee amputations. He would likely go back to [facility]. It is okay to discharge the patient from nephrology standpoint.
[2016-12-30 14:00] VITALS: BP 144/67
[2016-12-30] MEDS: diltiaZEM **CD** 180 MG CAP PO SCH (14:10)
--- NOTE | 2016-12-30 14:19 | IPNPDOC ---
Subjective Date Seen The patient was seen on 12/30/16. Subjective Chief Complaint/HPI The patient is a 66-year-old male admitted with a reason for visit of Tachycardia;Febrile, Gangrene. General: Denies: Chills, Night Sweats Constitutional: Denies: Chills, Fever Eyes: Denies: Pain, Vision change ENT: Denies: Ear Pain, Head Aches Skin: Denies: Lesions, Rash Pulmonary: Denies: Cough, Dyspnea Cardiovascular: Denies: Chest Pain, Palpitations Gastrointestinal: Denies: Nausea, Vomiting Genitourinary: Denies: Dysuria, Frequency Hematologic: Denies: Bleeding Excessively, Bruising Objective Physical Examination General Exam: Positive: Alert, Cooperative, No Acute Distress ENT Exam: Positive: Atraumatic, Mucous membr. moist/pink Chest Exam: Positive: Clear to auscultation, Normal air movement Heart Exam: Positive: Normal S1, Normal S2, Rate Normal Abdomen Exam: Positive: Soft, Negative: Tenderness Extremity Exam: Positive: Other (bilateral below the knee amputations) Assessment /Plan Plan/VTE VTE Prophylaxis Ordered?: Yes (already on Eliquis) Plan 1. Sepsis - likely 2/2 infection from infected right foot gangrenous 3rd digit s/p R BKA with Dr. Madrigal of surgery Cultures from wound positive for: Providencia Rettgeri, Staph aureus, Enterococcus Faecalis Status post treatment with Meropenem/Vancomycin 2. s/p A. fib with RVR - was uncontrolled in the setting of sepsis Heart rate stable at this time Continue Lopressor, Cardizem and Digoxin Continue anticoagulation with ASA and Eliquis 3. Anemia of chronic disease - 2/2 ESRD and post surgical blood loss. s/p 5 units PRBC during this admission will continue to follow 4. ESRD on HD (MWF) Follows with Dr. Jean-Baptiste of nephrology here 5. Thrombocytopenia - likely 2/2 cirrhosis We'll continue to monitor 6. Hx of Diastolic CHF Appears volume compensated at this time 7. Hx of Liver cirrhosis (by imaging) 8. Hx of Prostate CA 9. DVT prophylaxis On Eliquis Disposition-the patient tentatively scheduled to return to [facility] tomorrow. We will continue to work with PFS/CM to help facilitate this. VS, I&O, 24H, Fishbone Vital Signs/I&O Vital Signs Date Time Temp Pulse Resp B/P Pulse Ox O2 Delivery O2 Flow Rate FiO2 12/30/16 14:10 87 144/67 12/30/16 08:00 Room Air 12/30/16 06:00 96.6 20 96 I&O- Last 24 Hours up to 6 AM 12/30/16 06:00 Intake Total 2520 ml Output Total 0 ml Balance 2520 ml Laboratory Data 24H LABS Laboratory Tests 2 12/30/16 05:19: Albumin 2.0L, Blood Urea Nitrogen 37H, Creatinine 6.34H, Sodium Level 129L, Potassium Level 4.8, Chloride Level 92L, Carbon Dioxide Level 27, Anion Gap 10, Calcium Level 8.4L, Glomerular Filtration Rate 11.4L, Phosphorus Level 4.8# CBC/BMP Laboratory Tests 12/30/16 05:19 Anion Gap 10, Red Blood Count 3.75 L, Mean Corpuscular Volume 80.8, Mean Corpuscular Hemoglobin 25.1 L, Mean Corpuscular Hemoglobin Concent 31.0 L, Red Cell Distribution Width 19.0 H Microbiology Microbiology 12/27/16 Stool Occult Blood (SARAH) - Final, Complete 12/20/16 Gram Stain - Final, Complete 12/20/16 Wound Culture - Final, Complete Providencia Rettgeri Staphylococcus Aureus Enterococcus Faecalis CHAYITO RAMOS MD Dec 30, 2016 14:19
[2016-12-30] MEDS: GABAPENTIN 300 MG CAP PO SCH (20:56)
[2016-12-30 22:00] VITALS: BP 122/58
[2016-12-31] MEDS: METOPROLOL TART 25 MG TABLET PO SCH ×2 (00:04→06:24)
[2016-12-31 05:59] LABS: MEAN CORPUSCULAR HEMOGLOBIN 24.9 pg (27.0-33.0); MEAN CORPUSCULAR HGB CONC 30.8 g/dl (32.0-36.5)
[2016-12-31 06:00] VITALS: BP 119/57
[2016-12-31 06:16] LABS: ALBUMIN 2.1 GM/DL (3.2-5.2); CALCIUM LEVEL 8.3 MG/DL (8.8-10.2); CREATININE FOR GFR 4.15 MG/DL (0.70-1.30); GLOMERULAR FILTRATION RATE 18.6 (>49); PHOSPHORUS LEVEL 3.4 MG/DL (2.5-4.9); POTASSIUM SERUM 3.8 MEQ/L (3.5-5.1)
[2016-12-31] MEDS: NEPHRO-VIT TAB (NEPHROCAPS) PO SCH (09:15)
[2016-12-31] MEDS: (RENVELA) SEVELAMER **CARBONate** 800 MG TAB PO SCH (09:15)
[2016-12-31 09:16] VITALS: BP 120/56
[2016-12-31] MEDS: OMEPRAZOLE 20 MG CAP PO SCH (09:16)
[2016-12-31] MEDS: ASPIRIN 81 MG ENTERIC TAB PO SCH (09:16)
[2016-12-31] MEDS: APIXABAN 2.5 MG TAB (ELIQUIS) PO SCH (09:16)
[2016-12-31] MEDS: VITAMIN D 1,000 INTERNATIONAL UNITS TABLET PO SCH (09:16)
[2016-12-31] MEDS: diltiaZEM **CD** 180 MG CAP PO SCH (09:16)
[2016-12-31] MEDS ORDERED: (RENVELA) SEVELAMER **CARBONate** 800 MG TAB PO SCH (12:30)
--- NOTE | 2016-12-31 13:17 | IPN ---
DATE: 12/31/2016 SUBJECTIVE: The patient was seen and examined at the bedside today in the morning. He does not have any active complaint. The patient got hemodialysis done yesterday. He tolerating the hemodialysis procedure well. I was told that the patient would likely be transferred to the care home today. REVIEW OF SYSTEMS: The patient denies any fevers, chills, rigors, headache, nausea, vomiting, chest pain or shortness of breath at this time. OBJECTIVE: VITAL SIGNS: Temperature is 98.3 degrees Fahrenheit, blood pressure is 120/56, pulse is 99, respiratory rate of 18, saturating 97% on room air. Intake and output: Urine output is not recorded. The patient got hemodialysis done yesterday, ultrafiltration was 2 liters. PHYSICAL EXAMINATION: GENERAL: The patient is awake, alert and oriented times three, laying in bed in no apparent distress. HEAD AND NECK EXAM: Extraocular muscles intact. The patient has a squint. Mucous membranes are moist. Neck is supple. There is no jugular venous distension (JVD). CARDIOVASCULAR: S1, S2, irregular rate. No murmur, rub or gallop. RESPIRATORY: Chest is clear to auscultation bilaterally. Bilateral equal air entry. No rales or rhonchi. ABDOMEN: Soft, positive bowel sounds. No tenderness, no ascites, no organomegaly. EXTREMITIES: The patient has bilateral below-knee amputations and has a new dressing on the right below-knee amputation with a Arcenio-Feliciano (CHRISTIAN) drainage. IV ACCESS: The patient has a left forearm arteriovenous (AV) fistula with positive thrill and bruit. CENTRAL NERVOUS SYSTEM: There is no focal neurological deficit. Power is 5/5 in bilateral upper extremities. LABORATORY REVIEW: Complete blood count (CBC) showed a hemoglobin of 8.9, platelets are 191. Basic metabolic panel (BMP) showed sodium 134, potassium 3.8, chloride 94, bicarbonate 30, BUN 21, creatine is 4.15, phosphorus is 3.4, albumin is 2.1. CURRENT MEDICATIONS: The patient's medications are all reviewed by me. The only change in the medication is the Renvela dose has been decreased again to 800 mg by mouth three times a day with meals. ASSESSMENT: 66-year-old male with past medical history of end-stage renal disease on hemodialysis every Wednesday, Wednesday, Wednesday, admitted at this time because of sepsis secondary to right foot infection, status post right below-knee amputation. PLAN: 1. End-stage renal disease on hemodialysis. The patient's regular dialysis days are Wednesday, Wednesday, Wednesday. If he is discharged, he will be dialyzed according to his regular schedule tomorrow as an outpatient [facility]. 2 Anemia secondary to end-stage renal disease and blood loss. His hemoglobin is 8.9. There is no need of blood transfusion at this time. Continue current dose of Aranesp and Venofer. The rest of the anemia management will be done as an outpatient and dialysis center. 3. Chronic kidney disease, mineral bone disease. The patient's phosphorus level was low. His Renvela dose was increased to 1600 mg by mouth three times a day. However, his phosphorus is 3.4. I am switching back the dose to 800 mg by mouth three times a day. The rest of the mineral bone disease management will be as an outpatient. 4. Hyponatremia. Hyponatremia secondary to hypervolemia. The patient's sodium improves after hemodialysis. Continue the fluid restriction and sodium level will be management with hemodialysis as an outpatient. 5. Discharge planning. It is okay to discharge the patient from nephrology standpoint. The patient will be dialyzed as an outpatient in [place].
--- NOTE | 2016-12-31 14:34 | DS.PDOC ---
Discharge Summary General Date of Admission Dec 19, 2016 at 03:53 Date of Discharge Dec 31, 2016 at 12:00 Specialist/Consultants Involve Dr. Dela Cruz of Podiatry, Dr. Madrigal of General Surgery, and Dr. Jean-Baptiste/Dr. Abraham of Nephrology Discharge Summary PROCEDURES PERFORMED DURING STAY: Right Below the Knee Amputation COMPLICATIONS/CHIEF COMPLAINT: Tachycardia;Febrile, Gangrene of Right Foot, Toe ADMISSION DIAGNOSES: 1. Sepsis - likely 2/2 infection from infected right foot gangrenous 3rd digit 2. s/p A. fib with RVR 3. Anemia of chronic disease - 2/2 ESRD and post surgical blood loss. 4. ESRD on HD (MWF) 5. Thrombocytopenia - likely 2/2 cirrhosis 6. Hx of Diastolic CHF 7. Hx of Liver cirrhosis (by imaging) 8. Hx of Prostate Ca DISCHARGE DIAGNOSES: 1. Sepsis - likely 2/2 infection from infected right foot gangrenous 3rd digit 2. s/p A. fib with RVR 3. Anemia of chronic disease - 2/2 ESRD and post surgical blood loss. 4. ESRD on HD (MWF) 5. Thrombocytopenia - likely 2/2 cirrhosis 6. Hx of Diastolic CHF 7. Hx of Liver cirrhosis (by imaging) 8. Hx of Prostate Ca HISTORY OF PRESENT ILLNESS: 66-year-old male with past medical history of hypertension, chronic anemia, cataracts, end-stage renal disease on hemodialysis, diastolic congestive heart failure, peripheral vascular disease status post left below the knee amputation presented to the ER on 12/19/2016 from the [facility] after having fevers at dialysis. The patient was also noted to be in atrial fibrillation with a rapid ventricular rate in the 140s. The patient was started on vancomycin and Levaquin with IV fluids and transferred to [facility] for further evaluation and management. During the patient's hospitalization here in the hospital, the source of the patient's sepsis was attributed to right foot and toe gangrene. The patient was continued on broad-spectrum antibiotics, and of podiatry was consulted for amputation versus debridement. Dr. Dela Cruz recommended a surgical consultation for below the knee amputation. Dr. Madrigal of general surgery was subsequently consulted, and a right below the knee amputation was performed on . During this time, the patient's clinical status improved, he remained hemodynamically stable, with a downtrending fever curve. Blood cultures were noted to be negative. Wound cultures were positive for Providencia rettgeri, Staphylococcus aureus, and Enterococcus faecalis. The patient did complete a trial of vancomycin and meropenem. In addition, during the patient's stay here in the hospital he also was noted to be anemic requiring 5 total units of packed red blood cells. The patient's anemia has been attributed to his underlying end-stage renal disease/post-operative anemia, as there was no acute active bleeding noted here. Also, the patient's end-stage renal disease on hemodialysis was managed by the nephrology team of Dr. Jean-Baptiste and Dr. Abraham, as he was dialyzed according to his regular schedule. At this time, the patient remains hemodynamically stable, and is ready to be discharged back to [facility]. DISCHARGE MEDICATIONS: Please see below. ALLERGIES: Please see below. PHYSICAL EXAMINATION ON DISCHARGE: VITAL SIGNS: Please see below. General Exam: Positive: Alert, Cooperative, No Acute Distress ENT Exam: Positive: Atraumatic, Mucous membr. moist/pink Chest Exam: Positive: Clear to auscultation, Normal air movement Heart Exam: Positive: Normal S1, Normal S2, Rate Normal Abdomen Exam: Positive: Soft, Negative: Tenderness Extremity Exam: Positive: Other (bilateral below the knee amputations) LABORATORY DATA: Please see below. IMAGING: Clinical: Gangrene third toe. Technique: AP, lateral, bilateral oblique views of the right foot. Findings: Osteopenia, degenerative changes, and diffuse small vessel atherosclerotic changes are appreciated and possibly related to underlying diabetes. No definite acute periosteal reaction is appreciated although subtle irregular cortical appearance to the third toe middle phalanx cannot be excluded and this may represent underlying osteomyelitis. No acute/healed fracture identified. Impression: Osteopenia with degenerative changes and small vessel atherosclerotic disease suggesting diabetes. Subtle irregular appearance to the cortex involving the third toe middle phalanx cannot exclude underlying osteomyelitis. VTE Prophylaxis ordered?: Already on Eliquis DISCHARGE CONDITION: Stable. DISPOSITION: .Discharged to [facility] ACTIVITY: As tolerated DIET: .2 gm low sodium, fluid restricted diet DISCHARGE PLAN AND INSTRUCTIONS: 1. .F/U with PCP within 1-2 weeks 2. .Monitor Hgb levels for Anemia of Chronic Disease 3. .ESRD on HD, f/u with regular dialysis sessions TIME SPENT ON DISCHARGE: Greater than 30 minutes. Vital Signs/I&Os Vital Signs Date Time Temp Pulse Resp B/P Pulse Ox O2 Delivery O2 Flow Rate FiO2 12/31/16 10:06 Room Air 12/31/16 09:16 99 120/56 12/31/16 06:00 99.1 19 97 I&O- Last 24 Hours up to 6 AM 12/31/16 06:00 Intake Total 960 ml Output Total 2000 ml Balance -1040 ml Laboratory Data Labs 24H Laboratory Tests 2 12/31/16 05:09: Albumin 2.1L, Blood Urea Nitrogen 21H, Creatinine 4.15H, Sodium Level 134L, Potassium Level 3.8#, Chloride Level 94L, Carbon Dioxide Level 30, Anion Gap 10 , Calcium Level 8.3L, Glomerular Filtration Rate 18.6L, Phosphorus Level 3.4# CBC/BMP Laboratory Tests 12/31/16 05:09 Anion Gap 10, Red Blood Count 3.59 L, Mean Corpuscular Volume 81.0, Mean Corpuscular Hemoglobin 24.9 L, Mean Corpuscular Hemoglobin Concent 30.8 L, Red Cell Distribution Width 19.0 H Microbiology Microbiology 12/27/16 Stool Occult Blood (SARAH) - Final, Complete Medications Scheduled (Saline Nasal [place]) 0.65 % Spr 2 SPRAYS NA BID (Meggan-Keely) 1 Tab Tab 1 TAB PO QHS Apixaban Base (Eliquis) 2.5 Mg Tab 2.5 MG PO BID Aspirin (Aspirin) 325 Mg Tab 325 MG PO DAILY Cholecalciferol (Vitamin D) 1,000 Unit Tab 1,000 UNIT PO DAILY Ciprofloxacin HCl (Cetraxal) 0.2 % Beckie 4 DROP AU BID Digoxin (Digoxin) 0.125 Mg Tab 0.125 MG PO 3XW GIVEN @ 1800 ON MON, WED, FRI Diltiazem HCl (Diltiazem HCl ER) 180 Mg Tab 180 MG PO DAILY Docusate Sodium (Docusate Sodium) 100 Mg Cap 100 MG PO TID Gabapentin (Gabapentin) 300 Mg Cap 300 MG PO DAILY Sevelamer Carbonate (Renvela) 800 Mg Tab 800 MG PO TID Scheduled PRN (Enema) 1 Angelika Angelika 1 ANGELIKA MA DAILY PRN PRN CONSTIPATION Acetaminophen (Acetaminophen) 325 Mg Tab 650 MG PO Q4H PRN PRN PAIN / FEVER Bisacodyl (Bisacodyl) 10 Mg Sup 10 MG MA DAILY PRN PRN CONSTIPATION Glucagon Rdna (Glucagon Emergency Kit) 1 Mg Kit 1 MG SC PRN PRN PRN LOW BLOOD SUGAR Milk Of Magnesia (Milk of Magnesia) 1,200 Mg/15 Ml Emily 30 ML PO DAILY PRN PRN CONSTIPATION Allergies Coded Allergies: Penicillins (Verified Allergy, Mild, RASH, 08/28/16) Heparin (Verified Adverse Reaction, Severe, HIT - 09/2016, 09/10/16) CHAYITO RAMOS MD Dec 31, 2016 14:34
--- NOTE | 2017-01-13 13:19 | RO ---
DATE OF PROCEDURE: 12/23/2016 PREOPERATIVE DIAGNOSES: 1. 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 2. Severe peripheral vascular disease. POSTOPERATIVE DIAGNOSIS 1. 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 2. Severe peripheral vascular disease. PROCEDURE DONE: Right below-knee amputation. SURGEON: Dr. Colin Madrigal EVENT MARKETING COORDINATOR: Dr. Tariq Samuel ANESTHESIA: Spinal anesthesia. ESTIMATED BLOOD LOSS: 200 mL. COMPLICATIONS: None. REMARKS: The patient tolerated the procedure well. FINDINGS: Include chronically ischemic-appearing lower leg muscles. PROCEDURE NOTE: Mr. Fernandez is a 66-year-old gentleman, end-stage renal disease on dialysis with severe peripheral vascular disease, already had a left below-knee amputation. He is admitted for sepsis secondary to infected gangrene on his toe and heel on the right side. He had previously been worked up by his vascular surgeon and was found no correctable vascular defects. His only option was below-knee amputation. I was consulted, and he was subsequently brought to the operating room. After discussion, spinal anesthesia was chosen for our anesthesia. He was brought to the operating room. Spinal anesthesia was started. He was then placed supine on the table. His right leg prepped and draped in usual sterile fashion. A tourniquet placed to control bleeding. After surgical time-out, we began our surgery and marked the bony areas roughly about 10 cm below the knee. A circumferential incision was created anteriorly, which was the end of long flap created posteriorly. This was taken through the subcutaneous tissue with the saphenous veins located and tied off. The muscle surrounding the tibia was circumferentially dissected free with Bovie cautery, creating a plane around the tibia. The posterior vascular bundle was likewise tied off. Using a power saw, the tibia was divided roughly about 10 cm from the knee. The fibula was likewise circumferentially dissected free of the posterior muscles using a double-action bone cutter. This was divided more proximal. The stump both of the tibia and fibula was blunted with a rasp. After making sure we have got adequate control with the tourniquet engaged, the amputation knife was used to create a posterior flap to separate the whole of the lower leg. After sequentially bringing down the tourniquet, we controlled the bleeding with Bovie cautery, as well as 3-0 Vicryl sutures. Thrombin spray was likewise placed on the muscular bed for hemostatic effect. The posterior flap was then used to close the stump in layers with 2-0 Vicryl to attach the fascia to the periosteum. 3-0 Vicryl in subcutaneous space and 3-0 to close the skin. A 10 Arcenio-Feliciano (CHRISTIAN) drain was left to drain the flap. The stump was constricted with the postoperative sock. Likewise, covered with Kerlix and a Coban dressing. The patient tolerated the procedure well. He was brought to the recovery room stable.
== END 2016-12-31 12:00 | DRG 853 ==
LOC: M ICU 12-19 03:53 → M MSPAV 12-24 14:45
PROVIDERS: ADMIT Internal Medicine; ATTEND Internal Medicine
PROC: 30253N1 (ICD-10-PCS; 2016-12-19)
PROC: 5A1D60Z (ICD-10-PCS; 2016-12-21)
PROC: 0Y6H0Z2 Detachment at Right Lower Leg, Mid, Open Approach (ICD-10-PCS; principal; 2016-12-23 13:15)
DX: A41.9 Sepsis, unspecified organism (principal); N18.6 End stage renal disease; R65.21 Severe sepsis with septic shock; I13.2 Hypertensive heart and chronic kidney disease with heart failure and with stage 5 chronic kidney disease, or end stage renal disease; E87.1 Hypo-osmolality and hyponatremia; M86.671 Other chronic osteomyelitis, right ankle and foot; E46 Unspecified protein-calorie malnutrition; D62 Acute posthemorrhagic anemia; D63.1 Anemia in chronic kidney disease; B95.2 Enterococcus as the cause of diseases classified elsewhere; K74.60 Unspecified cirrhosis of liver; I48.2 Chronic atrial fibrillation; I73.9 Peripheral vascular disease, unspecified; D69.6 Thrombocytopenia, unspecified; B95.61 Methicillin susceptible Staphylococcus aureus infection as the cause of diseases classified elsewhere; H26.9 Unspecified cataract; E87.5 Hyperkalemia; L97.514 Non-pressure chronic ulcer of other part of right foot with necrosis of bone; Z85.46 Personal history of malignant neoplasm of prostate; Z99.2 Dependence on renal dialysis; Z88.0 Allergy status to penicillin; Z79.82 Long term (current) use of aspirin; Z79.01 Long term (current) use of anticoagulants; Z79.899 Other long term (current) drug therapy; Z87.891 Personal history of nicotine dependence; Z89.412 Acquired absence of left great toe; Z88.8 Allergy status to other drugs, medicaments and biological substances; Z89.512 Acquired absence of left leg below knee

== ENCOUNTER 2017-02-11 17:02 | Inpatient (IN) | payer MEDICARE, MEDICAID ==
[~2017-02-11] VITALS: Ht 188 cm; Wt 84.6 kg
[2017-02-11] VITALS (14 sets, daily range): BP systolic 86–104; BP diastolic 46–52
[~2017-02-11 17:02] MED LIST changes: +ACET-654 PO; +BISA10SU4 PR; +CIPRHCOTIC AU; +DOCU100C PO; +ENEM1ENE4 PR; +GABA-282 PO; -GABA300C3 PO; +GLUC1KIT SC; +MILKSUS PO; +OMEP20TA PO; +RENV2TAB PO; +SALI0.653; +[UNRECOGNIZED DRUG - CODE] AU
[2017-02-11] MEDS ORDERED: PROC1INJ SC (17:24)
[2017-02-11] MEDS ORDERED: PANTOPRAZOLE 40MG INJ (PROTONIX) (C9113) IV ONE (17:30)
[2017-02-11 18:06] LABS: ADD MORPHOLOGY? YES; BASO % 0.1 % (0.0-1.0); EOS # 0.1 K/mm3 (0.0-0.50); EOS % 2.2 % (0.0-3.0); LARGE UNSTAINED CELL # 0.1 K/mm3 (0.0-0.4); LYMPH % 14.9 % (24.0-44.0); MEAN CORPUSCULAR HEMOGLOBIN 24.8 pg (27.0-33.0); MEAN CORPUSCULAR VOLUME 85.6 fl (80.0-96.0); MONO # 0.4 K/mm3 (0.0-0.8); MONO % 5.7 % (0.0-5.0); NEUTROPHILS # 4.9 K/mm3 (1.8-7.7); PLATELET COUNT, AUTOMATED 140 k/mm3 (150-450); RED CELL DISTRIBUTION WIDTH 17.2 % (11.5-14.5); WHITE BLOOD COUNT 6.4 K/mm3 (4.0-10.0)
[2017-02-11 18:07] LABS: INR 1.14
[2017-02-11 18:28] LABS: ALBUMIN 2.6 GM/DL (3.2-5.2); ALBUMIN/GLOBULIN RATIO 0.7 (1.00-1.93); BILIRUBIN,DIRECT 0.2 MG/DL (0.0-0.2); BILIRUBIN,TOTAL 0.4 MG/DL (0.2-1.0); CREATININE FOR GFR 4.76 MG/DL (0.70-1.30); DIGOXIN LEVEL 0.7 NG/ML (0.5-2.0); GLOMERULAR FILTRATION RATE 15.8 (>49); POTASSIUM SERUM 4.5 MEQ/L (3.5-5.1); TOTAL PROTEIN 6.3 GM/DL (6.4-8.2)
[2017-02-11 19:15] LABS: ANISOCYTOSIS 1+
[2017-02-11 19:16] LABS: HYPOCHROMASIA 1+
--- NOTE | 2017-02-11 19:24 | ECGEPIP ---
Stationary ECG Study [facility] - ED Test Date: 2017-02-11 Pat Name: CATHI SEBASTIAN Department: Room: - Gender: M [employer]: lisa : [id number] Requested By: Carmita Gallardo Order Number: [id number] Reading MD: Micky Fortune Measurements Intervals [place] Rate: 69 P: 267 VA: 141 QRS: -48 QRSD: 126 T: 150 QT: 407 QTc: 437 Interpretive Statements SINUS RHYTHM POSSIBLE LAE LAD LEFT ANTERIOR FASCICULAR BLOCK NSTTW ABNORMALITIES SIMILAR TO 11/06/16 Electronically Signed On 02-11-2017 19:24:00 EDT by Micky Fortnue
[2017-02-11] MEDS ORDERED: ONDANSETRON 4MG/2ML VIAL (J2405) IV PRN (19:30)
[2017-02-11] MEDS ORDERED: DILT300C PO (19:36)
[2017-02-11] MEDS ORDERED: MILKSUS5 PO (19:36)
[2017-02-11] MEDS ORDERED: NEPHTAB PO (19:36)
[2017-02-11] MEDS ORDERED: ACET-654 PO (19:36)
[2017-02-11] MEDS ORDERED: GLUC1KIT SC (19:36)
[2017-02-11] MEDS ORDERED: ELIQ2.5T PO (19:37)
[2017-02-11] MEDS ORDERED: ASPI1TAB PO (19:38)
[2017-02-11] MEDS ORDERED: ALBUTEROL SULFATE 2.5 MG/0.5 ML INH NEB SOLN NEB PRN (21:15)
--- NOTE | 2017-02-11 21:53 | HPE ---
DATE OF ADMISSION: 02/11/2017 PRIMARY CARE PHYSICIAN: Dr. Torres CHIEF COMPLAINT: The patient transferred from [facility] for rectal bleeding. PAST MEDICAL HISTORY: End-stage renal disease (ESRD). On hemodialysis Wednesday, Wednesday, Wednesday. Bilateral below-knee amputations, left, done in 2015, right done in December 2016. Peripheral vascular disease with history of gangrene. Diastolic congestive heart failure. severe pulmonary hypertension and corpulmonale. Moderate to severe Aortic stenosis, moderate aortic regurgitation , moderate mitral regurgitation Hypertension. Atrial fibrillation/ aflutter History of prostate cancer with a history of radiation, greater than 10 years ago. History of gastrointestinal (GI) bleed. Diverticulosis of the descending and the ascending colon. Internal hemorrhoids. Radiation proctitis of the anal canal. Stercoral Rectal ulcer in endoscopy on january 2017 Colonic polyps. Hyperplastic polyp of the stomach resected. Tubular adenoma of the ascending colon, resected in August 2016. Chronic anemia. Dysphagia. HISTORY OF THE PRESENT ILLNESS: This is a 66-year-old male with the above past medical history, who was admitted at [facility] for GI bleed from 01/29/2017 to 02/11/2017. The patient was discharged today to [facility]. As per patient, patient restarted large amounts of bleeding from his rectum. Last night at around 2:00 a.m., he had notified the nurses at [facility] regarding this; however, the patient was deemed as stable and subsequently discharged later today/morning. After he reached [facility], he was noted to have persistent rectal bleeding with clots coming out of the rectum, so was sent to our emergency room for evaluation. At [facility], the patient's Eliquis and aspirin was held, and he received several units of blood transfusions. His lowest hemoglobin and hematocrit had dropped to 6.8. Most recent hemoglobin and hematocrit was 7.2 this am at [facility]. As per patient, his bleeding had decreased and for a couple of days, it had stopped completely. However, it restarted last night at 2:00 a.m. He had a colonoscopy there which showed stercoral rectal ulcer with scattered clots and diverticulosis. His colonoscopy and endoscopy in our hospital in August 2016 showed diverticulosis of ascending and Descending colon polyps in the colon as well as radiation proctitis. Today, in the emergency department (ED), the patient's hemoglobin and hematocrit was found to be 6.7. His last hemodialysis was yesterday. The patient is being admitted to the hospitalist service for lower GI bleeding and acute blood loss anemia. PAST SURGICAL HISTORY: Bilateral below-knee amputations. AV fistula placement. Cataract surgeries. SOCIAL HISTORY: The patient is a former smoker, smoked for about 50 years. He denies any alcohol or recreational drug use. He is from [facility]. ALLERGIES: PENICILLIN and HEPARIN causes HIT. HOME MEDICATIONS: - Tylenol 650 mg by mouth every 6 hours as needed - bisacodyl 10 mg per rectum daily as needed for constipation - cholecalciferol 1000 units by mouth daily - digoxin 0.125 mg by mouth three times per week on Wednesday, Wednesday, Wednesday - diltiazem 300 mg by mouth daily - epoetin hank 4000 units three times per week - vitamin B complex one tablet daily - Colace 100 mg three times a day as needed - gabapentin 300 mg daily - Renvela 800 mg three times per day - saline nasal spray two sprays both nostrils twice a day - milk of magnesia 30 mL as needed daily for constipation REVIEW OF SYSTEMS: Patient denied any fever or chills. Denied abdominal pain, any nausea, vomiting or diarrhea. The patient states blood comes out through the rectum spontaneously even with coughing but there is no pain. There is no chest pain. No shortness of breath. No cough or phlegm. PHYSICAL EXAMINATION: VITAL SIGNS: Blood pressure 117/56, pulse 68, temperature 98.5, pulse oximetry 100% in room air. GENERAL: Patient awake, alert, oriented times three, sitting up in bed in no acute distress. HEENT: Normocephalic, atraumatic. Moist mucous membranes. Anicteric eyes. CHEST: Bilateral coarse breath sounds. Good air entry. There are some basal crackles. CARDIOVASCULAR: S1, S2, regular. There is a systolic murmur. ABDOMEN: Soft, nontender. Bowel sounds present. EXTREMITIES: No edema. LABORATORY DATA: WBC 6.4, hemoglobin 6.7, platelets 140. Sodium 139, potassium 4.5, chloride 103, bicarbonate 31, BUN 21, creatinine 4.7, glucose 138. Liver function tests are normal. Coagulation is normal. Albumin 2.6, lipase 347. ASSESSMENT: This is a 66-year-old male admitted for gastrointestinal bleed. PLAN: For GI bleed, the patient will receive two units of blood transfusion. Will check hemoglobin and hematocrit every 6 hours. Spoke over phone with Dr Heath as per him possibly radiation proctitis will need to be transfused as required and the bleeding is expected to stop spontaneously. The patient had an esophagogastroduodenoscopy (EGD)/colonoscopy done in August 2016 and also in January 2017 at [facility] which showed rectal ulcer with recent bleed. Possibility of source is either diverticular bleed or radiation proctitis or recurrent bleeding from rectal ulcer .Will continue the patient on pantoprazole twice a day. Will keep the patient nothing by mouth for now, can allow sips of water. Will consult surgery if bleeding continues with drop in hh. Possible colonoscopy if bleeding continues. Acute blood loss anemia : will transfuse 3 units of PRBC End-stage renal disease. Will continue maintenance hemodialysis and nephrology has been consulted. Secondary hyperparathyroidism and hyperphosphatemia with continue renvela. Atrial fibrillation. Rate is controlled. Eliquis and aspirin is on hold because of recurrent GI bleeds. Peripheral vascular disease. He is status post bilateral below-knee amputations. Stable at this point. History of prostate cancer and radiation in the past. No issues at this point. Congestive heart failure due to diastolic dysfunction , aortic stenosis, mitral regurgitation and aortic regurgitation and severe pulmonary hypertension The patient appears to be euvolemic at this point. Will continue to monitor volume status closely as will be 3 units of prbc. due for HD tomorrow if required more will try to transfuse during HD Hypertension. The patient at present has low to low normal blood pressure. Will hold all antihypertensive medications. Dysphagia : Oral and pharyngeal due to muscle weakness: had barium swallow at psychiatric recommended mechanical soft diet and necter thick liquids or thin liquids in special cup which the patient has. Gastrointestinal (GI) prophylaxis has been ordered. MTDD
[2017-02-12] VITALS (43 sets, daily range): BP systolic 83–125; BP diastolic 46–60
[2017-02-12] MEDS ORDERED: OCTREOTIDE ACETATE 100 MCG/ML VIAL (J2354) IV SCH (00:30)
[2017-02-12] MEDS: OCTREOTIDE ACETATE 100 MCG/ML VIAL (J2354) IV SCH ×2 (01:24→05:04)
[2017-02-12] MEDS ORDERED: DIGOXIN INJ 0.5 MG/2 ML AMP (J1160) IV ONE (04:45)
[2017-02-12] MEDS: PANTOPRAZOLE 40MG INJ (PROTONIX) (C9113) IV SCH ×2 (05:04→18:24)
[2017-02-12 07:19] LABS: BASO % 0.1 % (0.0-1.0); EOS # 0.1 K/mm3 (0.0-0.50); EOS % 1.6 % (0.0-3.0); LARGE UNSTAINED CELL # 0.1 K/mm3 (0.0-0.4); LARGE UNSTAINED CELL % 1.3 % (0.0-4.0); LYMPH # 1.1 K/mm3 (1.5-4.5); LYMPH % 13.7 % (24.0-44.0); MEAN CORPUSCULAR HEMOGLOBIN 27.2 pg (27.0-33.0); MEAN CORPUSCULAR HGB CONC 31.4 g/dl (32.0-36.5); MEAN CORPUSCULAR VOLUME 86.5 fl (80.0-96.0); MONO # 0.4 K/mm3 (0.0-0.8); MONO % 4.3 % (0.0-5.0); NEUTROPHILS # 6.5 K/mm3 (1.8-7.7); NEUTROPHILS % 79.1 % (36.0-66.0); PLATELET COUNT, AUTOMATED 142 k/mm3 (150-450); RED CELL DISTRIBUTION WIDTH 16.9 % (11.5-14.5); WHITE BLOOD COUNT 8.3 K/mm3 (4.0-10.0)
[2017-02-12 07:30] LABS: ALBUMIN 2.3 GM/DL (3.2-5.2); ALBUMIN/GLOBULIN RATIO 0.72 (1.00-1.93); BILIRUBIN,TOTAL 1.7 MG/DL (0.2-1.0); CALCIUM LEVEL 8.5 MG/DL (8.8-10.2); CREATININE FOR GFR 5.66 MG/DL (0.70-1.30); TOTAL PROTEIN 5.5 GM/DL (6.4-8.2)
[2017-02-12 07:31] LABS: POTASSIUM SERUM 5.5 MEQ/L (3.5-5.1)
[2017-02-12] MEDS: (RENVELA) SEVELAMER **CARBONate** 800 MG TAB PO SCH ×3 (07:33→18:24)
[2017-02-12] MEDS: IPRATROPIUM 0.5MG/ALBUTEROL 2.5MG INH SOL UD 3ML (DUONEB)(J7620) NEB SCH ×2 (07:55→20:00)
[2017-02-12] MEDS: GABAPENTIN 300 MG CAP PO SCH (08:31)
[2017-02-12] MEDS ORDERED: AMIODARONE 150MG/3ML INJ (J0282) IVP STA (10:36)
[2017-02-12] MEDS ORDERED: AMIODARONE HCL 150 MG in APPROPRIATE DILUENT 1 EA IV ONE ×2 (10:45→12:30)
--- NOTE | 2017-02-12 12:32 | IPNPDOC ---
Date Seen The patient was seen on 02/12/17. Progress Note SUBJECTIVE: The patient tells me that he is feeling well this time he tells me that he has not any further bowel movement since before midnight he denies chest pain shortness of breath abdominal pain nausea vomiting, he denies palpitations. OBJECTIVE PHYSICAL EXAMINATION: VITAL SIGNS: Heart rate 133 BP 96/54 Please see below. GENERAL: Frail elderly -Sudanese male lying flat in bed he does not appear to be in any acute distress HEENT: Moist mucous membranes face is chronically asymmetric no appreciable elevation and CVP CARDIOVASCULAR: S1-S2 regular and tachycardic pansystolic murmur. RESPIRATORY: Diminished breath sounds at the bases but no appreciable rales good air movement. ABDOMINAL: Bowel sounds are present abdomen soft and nontender EXTREMITIES: No clubbing cyanosis or edema fistula and/or fistula scars present , status post bilateral BKA NEUROLOGICAL: Patient is mentating well he is awake alert oriented 3 is also oriented to situation LABORATORY DATA: Hemoglobin up from 6.7-8.0 after 3 units of PRBCs, thrombocytopenia, digoxin level 0.7 Please see below. MICROBIOLOGY: Please see below. DVT prophylaxis ordered?: Sequentials and teds no pharmacological agents in the setting of acute bleed ASSESSMENT AND PLAN: This is a 66 year-old man with acute on chronic GI bleeding. PROBLEMS: 1. GI bleed: Patient was recently discharged after a stay at [facility] at the time he did have colonoscopy he was also scoped here back in August, the patient has not been on Eliquis Beba fibrillation for greater than 2 weeks his aspirin has also been on hold . At this time suspected sources of bleeding are potentially colonic polyp, diverticulosis or radiation proctitis. I did discuss with Dr. Galvez this morning. The patient may benefit from Shaji laser Dr. Galvez we'll do a flex sigmoidoscopy later on this afternoon the patient is nothing by mouth. He's not had further bloody bowel movements for the time being we'll monitor his H&H and transfuse as needed at the present time he is breathing comfortably on room air and able to lay flat. The patient was briefly on octreotide however there is no concern for esophageal varices at this time we will discontinue the octreotide, the patient is on a PPI IV twice a day. At this time appears of his bleeding is slowing down. Acute blood loss anemia improving with transfusion his hemoglobin is at baseline appears to be approximately 9 2. Atrial flutter: The patient is a known history of A. fib and atrial flutter at the time being he is in a rapid ventricular response I spoke with Dr. Car this morning. Receive additional dose of Arcenio yesterday evening to check a digoxin level as well Dr. Car we will give him a trial of amiodarone to see if able to improve his rate control which I think would also improve his hemodynamics. At home it appears the patient takes digoxin 3 times a week and diltiazem 300 mg extended release daily at this time he is hypotensive and would avoid the diltiazem until his blood pressure improves 3. End-stage renal disease on hemodialysis: To try to improve his hemodynamics prior to hemodialysis today is a regular day area he normally does dialysis Wednesday. Continue with Nephro-Keely Zhang we'll see the patient today 4. Secondary hyperparathyroidism: As above 5. Peripheral vascular disease: Status post bilateral below-knee indications stable, the patient on gabapentin for chronic pain 6. Prostate cancer: As outlined above the patient likely has some radiation proctitis 7. Diastolic congestive heart failure: Likely related to his renal disease is going status is not overloaded at this point despite receiving 3 units of PRBCs will monitor sensor status closely controlled. Hemodialysis 8. Hypertension: The patient is actually hypotensive we will hold his antihypertensives 9. Dysphagia: Swallow eval at [facility] recommended mechanical soft diet and nectar thick liquids or thin liquids in special cup for the time being the patient is nothing by mouth related to his GI bleed when able consider reinitiating this diet as tolerated 10. Moderate severe aortic stenosis: The patient was told at [facility] by proof inspector there that he may benefit from open heart surgery should he be able to tolerate it in the future DISPOSITION: Patient's prognosis at this time is somewhat guarded we'll continue to monitor him very closely. VS, I&O, 24H, Fishbone Vital Signs/I&O Vital Signs Date Time Temp Pulse Resp B/P Pulse Ox O2 Delivery O2 Flow Rate FiO2 02/12/17 11:00 111 18 101/58 95 Room Air 02/12/17 08:00 98.7 I&O- Last 24 Hours up to 6 AM 02/12/17 05:59 Intake Total 1013 ml Balance 1013 ml Laboratory Data 24H LABS Laboratory Tests 2 02/11/17 17:45: Aspartate Amino Transf (AST/SGOT) 23, Alanine Aminotransferase (ALT/SGPT) 24, Alkaline Phosphatase 126H, Total Bilirubin 0.4, Direct Bilirubin 0.2, Albumin 2.6L, Albumin/Globulin Ratio 0.70L, Anion Gap 5L, Anisocytosis 1+, White Blood Count 6.4, Red Blood Count 2.70L, Hemoglobin 6.7*L, Hematocrit 23.1L, Mean Corpuscular Volume 85.6, Mean Corpuscular Hemoglobin 24.8L, Mean Corpuscular Hemoglobin Concent 29.0L, Red Cell Distribution Width 17.2H, Platelet Count 140L , Neutrophils (%) (Auto) 76.0H, Lymphocytes (%) (Auto) 14.9L, Monocytes (%) ( Auto) 5.7H, Eosinophils (%) (Auto) 2.2, Basophils (%) (Auto) 0.1, Neutrophils # (Auto) 4.9, Lymphocytes # (Auto) 1.0L, Monocytes # (Auto) 0.4, Eosinophils # ( Auto) 0.1, Basophils # (Auto) 0.0, Calcium Level 9.0, Digoxin Level 0.7, Glomerular Filtration Rate 15.8L, Hypochromasia 1+, Large Unclassified Cells # 0.1, Large Unclassified Cells % 1.0, Lipase 347, Platelet Estimate DECREASED, Prothromb Time International Ratio 1.14, Prothrombin Time 14.7H, Total Protein 6.3L 02/12/17 06:59: Aspartate Amino Transf (AST/SGOT) 14L, Alanine Aminotransferase (ALT/SGPT) 19, Alkaline Phosphatase 110, Total Bilirubin 1.7#H, Albumin 2.3L, Albumin/Globulin Ratio 0.72L, Anion Gap 6L, White Blood Count 8.3, Red Blood Count 2.94L, Hemoglobin 8.0L, Hematocrit 25.4L, Mean Corpuscular Volume 86.5, Mean Corpuscular Hemoglobin 27.2, Mean Corpuscular Hemoglobin Concent 31.4L, Red Cell Distribution Width 16.9H, Platelet Count 142L, Neutrophils (%) (Auto) 79.1H , Lymphocytes (%) (Auto) 13.7L, Monocytes (%) (Auto) 4.3, Eosinophils (%) (Auto ) 1.6, Basophils (%) (Auto) 0.1, Neutrophils # (Auto) 6.5, Lymphocytes # (Auto) 1.1L, Monocytes # (Auto) 0.4, Eosinophils # (Auto) 0.1, Basophils # (Auto) 0.0, Calcium Level 8.5L, Glomerular Filtration Rate 13.0L, Large Unclassified Cells # 0.1, Large Unclassified Cells % 1.3, Total Protein 5.5L, Blood Urea Nitrogen 24H, Creatinine 5.66H, Sodium Level 139, Potassium Level 5.5H, Chloride Level 104, Carbon Dioxide Level 29 CBC/BMP Laboratory Tests 02/11/17 17:45 Red Blood Count 2.70 L, Mean Corpuscular Volume 85.6, Mean Corpuscular Hemoglobin 24.8 L, Mean Corpuscular Hemoglobin Concent 29.0 L, Red Cell Distribution Width 17.2 H, Neutrophils (%) (Auto) 76.0 H, Lymphocytes (%) (Auto ) 14.9 L, Monocytes (%) (Auto) 5.7 H, Eosinophils (%) (Auto) 2.2, Basophils (%) (Auto) 0.1, Neutrophils # (Auto) 4.9, Lymphocytes # (Auto) 1.0 L, Monocytes # ( Auto) 0.4, Eosinophils # (Auto) 0.1, Basophils # (Auto) 0.0 02/12/17 02:03 02/12/17 06:59 Red Blood Count 2.94 L, Mean Corpuscular Volume 86.5, Mean Corpuscular Hemoglobin 27.2, Mean Corpuscular Hemoglobin Concent 31.4 L, Red Cell Distribution Width 16.9 H, Neutrophils (%) (Auto) 79.1 H, Lymphocytes (%) (Auto ) 13.7 L, Monocytes (%) (Auto) 4.3, Eosinophils (%) (Auto) 1.6, Basophils (%) ( Auto) 0.1, Neutrophils # (Auto) 6.5, Lymphocytes # (Auto) 1.1 L, Monocytes # ( Auto) 0.4, Eosinophils # (Auto) 0.1, Basophils # (Auto) 0.0, Calcium Level 8.5 L , Aspartate Amino Transf (AST/SGOT) 14 L, Alanine Aminotransferase (ALT/SGPT) 19 , Alkaline Phosphatase 110, Total Bilirubin 1.7 #H, Total Protein 5.5 L, Albumin 2.3 L YARA WILD MD Feb 12, 2017 12:32
[2017-02-12] MEDS: DIGOXIN 0.125 MG TAB PO SCH (13:50)
[2017-02-12] MEDS ORDERED: FLEET ENEMA PR ONE ×2 (14:00→15:00)
--- NOTE | 2017-02-12 14:02 | CR ---
DATE OF CONSULTATION: 02/12/2017 REQUESTING PHYSICIAN: Dr. Autumn Fajardo CONSULTING PHYSICIAN: Dr. Abraham REASON FOR CONSULTATION: Management of end stage renal disease and hemodialysis. CHIEF COMPLAINT: The patient was transferred from [facility] for rectal bleeding. HISTORY OF PRESENT ILLNESS: Mr. Nicho Fernandez is a 66-year-old male with past medical history of end stage renal disease on hemodialysis every Wednesday, Wednesday, Wednesday, well known to the nephrology service from outpatient dialysis center. He is a resident of [facility]. He was recently admitted at [facility] for gastrointestinal (GI) bleeding from 01/29/2017 to 02/11/2017. He was transferred back to [facility], but he was found to have rectal bleeding so he was brought to the emergency room (ER) yesterday. He was found to have a hemoglobin of 6.7 on initial labs. Packed red blood cell (PRBC) transfusion was started. The patient's Eliquis and aspirin are also already on hold. Of note, the patient is currently in atrial flutter when I saw the patient. He has already been given IV digoxin by the primary team. Nephrology service has been called for management of end stage renal disease. PAST MEDICAL HISTORY: 1. End stage renal disease on hemodialysis every Wednesday, Wednesday, Wednesday. 2. History of peripheral vascular disease. 3. Bilateral below knee amputations. 4. Diastolic congestive heart failure. 5. Severe pulmonary hypertension and cor pulmonale. 6. History of aortic stenosis. 7. Atrial fibrillation and atrial flutter. 8. History of cancer of prostate in the past status post radiation more than ten years ago. 9. Recurrent history of GI bleeding. 11. History of radiation proctitis. 12. Anemia secondary to end stage renal disease. 13. Dysphagia. PAST SURGICAL HISTORY: 1. Bilateral below knee amputations, left one done in 2015 and right one done in December 2016. 2. Status post AV fistula placement in the left forearm. 3. Cataract surgeries. 4. Angiographies for peripheral vascular disease. 5. History of endoscopies. 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 SOCIAL HISTORY: The patient is a resident of [facility]. There is no recent history of smoking, drug abuse or alcohol abuse. REVIEW OF SYSTEMS: CONSTITUTIONAL: Patient denies any fevers or chills. EYES: Patient denies any recent blurry vision or double vision. ENT: He denies any ear discharge, dysphagia, odynophagia. CARDIOVASCULAR: Patient reports atrial fibrillation and atrial flutter and irregular heart rate. RESPIRATORY: He denies any shortness of breath, cough or wheezing. GI: The patient is having rectal bleeding. He denies any nausea or vomiting at this time. MUSCULOSKELETAL: He reports bilateral below knee amputations. CENTRAL NERVOUS SYSTEM: He denies any recent weakness, numbness or seizures. PSYCHIATRIC: No history of depression or anxiety. SKIN: He denies any rashes or ulcers. ENDOCRINE: He denies any history of hyper or hypothyroidism. HEMATOLOGIC/ONCOLOGIC: Reports history of anemia secondary to end stage renal disease. All other review of systems is negative. PHYSICAL EXAMINATION: GENERAL: Patient is awake, alert, oriented times three, laying in bed in no apparent distress. VITAL SIGNS: Temperature 98.7 degrees Fahrenheit. Blood pressure 86/50. Pulse 132. Respiratory rate 16. Saturating 96% on room air. INTAKE AND OUTPUT: Patient got PRBC transfusion. Around 700 mL yesterday and 313 mL so far today since overnight. Urine output is not recorded. Weight in the bed scale is 86.5 kg. HEAD AND NECK EXAM: The patient has a squint. Mucous membranes are moist. Neck is supple. There is no jugular venous distention. CARDIOVASCULAR: The patient has tachycardia. Otherwise rate is regular. He is in atrial flutter at this time. No murmur, rub or gallop. RESPIRATORY: Chest is clear to auscultation bilaterally. Bilateral good air entry. No rales or rhonchi. ABDOMEN: Soft. Positive bowel sounds. Nontender. No ascites. No organomegaly. EXTREMITIES: Patient has bilateral below knee amputations. CENTRAL NERVOUS SYSTEM: No focal neurological deficit. Power is 5/5 in all extremities. PSYCHIATRIC: Normal mood and affect. SKIN: No rashes or ulcers. LYMPH NODES: No significant cervical, axillary or inguinal lymphadenopathy. LAB REVIEW: CBC showed a WBC of 8.3, hemoglobin 8 and it was 6.7 on admission, platelets 142. BMP showed sodium 139, potassium 5.5, chloride 104, bicarbonate 29, BUN 24, creatinine 5.6, calcium 8.5, total bilirubin 1.7. IMAGING: No new imaging available. ASSESSMENT: 66-year-old male with past medical history of end stage renal disease on hemodialysis, history of atrial fibrillation and atrial flutter, admitted at this time with lower GI bleeding. PLAN: 1. GI bleeding. Most likely is a lower GI bleed. Patient is status post PRBC transfusion. Transfuse as needed for hemoglobin drop below 8. Aspirin and Eliquis is already on hold. The patient would most likely get an endoscopy today in the afternoon. Continue Protonix for now. The patient is status post three units of PRBC transfusion. 2 End stage renal disease on hemodialysis. Today is patient's regular day of dialysis. Patient will be dialyzed once he is hemodynamically stable and atrial flutter is rate controlled. 3. Atrial flutter. Patient's heart rate is uncontrolled. He is hypotensive at this time. He was already given a dose of digoxin early childhood worker. I am going to give him a dose of amiodarone 150 mg IV times one dose. Anticoagulation and antiplatelets are on hold because of GI bleeding. 4. Hyperkalemia. Potassium is 5.5. It is acceptable at this time. No need of Kayexalate at this time. The patient is having GI bleeding. Potassium is expected to improve with hemodialysis. He will be dialyzed against a 2K bath. 5. Chronic kidney disease mineral bone disease. The patient is nothing by mouth at this time. He can restart Renvela 800 mg by mouth three times a day with meals for hyperphosphatemia. 6. History of congestive heart failure and diastolic dysfunction. Patient's volume status is optimized at this time. He is not short of breath at this time. The patient will be dialyzed and we shall try to do an ultrafiltration of about 2 kg as tolerated by his blood pressure. Thank you for involving us in the care of this patient. We shall be happy to follow the patient along with you tomorrow morning.
--- NOTE | 2017-02-12 17:34 | ROOR ---
Patient Name: Nicho Fernandez Procedure Date: 02/12/2017 4:27 PM Date of : 1950 Age: 66 Room: [facility] Gender: Male Note Status: Finalized Procedure: Flexible Sigmoidoscopy Indications: Rectal hemorrhage, Hematochezia Providers: Oleksandr HEATH MD Referring MD: Trupti Rea Requesting Provider: Medicines: None Complications: No immediate complications. Procedure: Pre-Anesthesia Assessment: - The heart rate, respiratory rate, oxygen saturations, blood pressure, adequacy of pulmonary ventilation, and response to care were monitored throughout the procedure. The was introduced through the anus and advanced to the sigmoid colon. The flexible sigmoidoscopy was accomplished without difficulty. The patient tolerated the procedure well. Findings: The perianal and digital rectal examinations were normal. Clotted blood was found from 0- 30 cm proximal to the anus. Stool was found from 30 to 50 cm proximal to the anus. A single (solitary) ten mm ulcer was found in the distal rectum. Spurting bleeding was present. Stigmata of recent bleeding were present. To stop active bleeding, four hemostatic clips were successfully placed (MR conditional). There was no bleeding at the end of the procedure. Impression: - Clotted and fresh blood at from 0 to 30 cm proximal to the anus. Brown Stool from 30 to 50 cm proximal to the anus. - A single shallow (solitary) ulcer in the distal rectum. Actively spurting bleeding was present at the dentate line/margin of ulcer. Clips (MR conditional) were placed with good hemostasis. - No specimens collected. Recommendation: - Observe the patient. - Monitor for rebleeding. (all blood has been evacuated, there is only brown stool left). any significant repeat rectal bleeding/clots over the next few days, is suggestive of failure of my hemostatic clips and will likely need surgical repair).--I discussed with Dr Alas. - Return patient to hospital [facility] for ongoing care. Oleksandr Heath MD Oleksandr HEATH MD 02/12/2017 5:33:50 PM This report has been signed electronically. Number of Addenda: 0 Note Initiated On: 02/12/2017 4:27 PM Estimated Blood Loss: Estimated blood loss: none.
--- NOTE | 2017-02-12 19:44 | CR ---
DATE OF CONSULTATION: 02/12/2017 I was asked by the hospitalist team to see Mr. Fernandez for atrial fibrillation/flutter with rapid ventricular response. HISTORY OF PRESENT ILLNESS: Mr. Fernandez has been previously unknown to me. He is an elderly male gentleman with a very complex medical history. He actually was admitted to this facility after he spent over a week in [facility] from 01/29/2017 to 02/11/2017 for gastrointestinal bleeding. He underwent colonoscopy, and no obvious source was identified. He was discharged back to half-way after his hemoglobin stabilized. Apparently very briefly after his arrival to half-way, he complained about blood oozing from his rectum, and he was transferred almost immediately to [facility]. He received a total of 3 units of blood. His hemoglobin seems to be stabilizing but during his stay in intensive care unit has suddenly developed atrial fibrillation with rapid ventricular response. His heart rate was about 130 beats per minute, and because his baseline blood pressure has been running relatively low, I was asked to see the patient. By the time I got involved, he was seen by Dr. Abraham from nephrology service, who gave him 150 mg of intravenous (IV) amiodarone that led to substantial slowing of his heart rate, and I have him yet another 150 mg, which slowed his heart rate into 50s. As we speak, his heart rate is approximately 90 beats per minute, and he remains in atrial fibrillation. Patient denies any chest discomfort or shortness of breath as we speak. He does have faint sensation of palpitations, but for the most part it looks like the atrial fibrillation is virtually asymptomatic. PAST MEDICAL HISTORY: 1. End-stage renal disease, on dialysis for over 20 years. 2. Hypertension. 3. History of recurrent gastrointestinal (GI) bleeding. 4. History of peripheral vascular disease status post bilateral above knee amputation (AKA). 5. History of atrial fibrillation. 6. History of deep vein thrombosis (DVT). 7. History of prostate cancer status post radiation and chronic radiation proctitis. OUTPATIENT MEDICATIONS: - digoxin 0.125 mg three times a week during dialysis day - furosemide 20 mg - gabapentin - pantoprazole 40 a day - Sevelamer - Eliquis 2.5 twice a day - aspirin 81 a day - diltiazem long-release 240 mg daily ALLERGIES: He reports allergies to PENICILLIN and HEPARIN. SOCIAL HISTORY: Patient is . Currently resides in a half-way but used to live with his family until his right lower extremity was amputated about 3 months ago. He is originally from [facility], but then they lived for a long time in [place] and eventually moved to [facility] relatively recently about a year ago. He used to smoke until recently, about half pack a day, and he used to have social alcohol use. Denies any drug use. FAMILY HISTORY: No longer relevant considering the situation. REVIEW OF SYSTEMS: There has not been any recent fevers or chills. The GI bleeding has stopped after colonoscopy revealed bleeding rectal ulcer that was clipped. There is no recent chest pain. He does not have much shortness of breath with his very sedentary life. Denies syncope. Denies abdominal pain, nausea, vomiting. The rest of review of systems is negative. PHYSICAL EXAMINATION: Mr. Fernandez is an elderly gentleman who appears older than his calendar age. During my evaluation, he was undergoing hemodialysis. The fistula is in his left upper extremity. His jugular venous pulse (JVP) is elevated, most likely related to the presence of the fistula. There is a systolic ejection murmur, best heard over the base, radiating to his neck. There is also a fairly prominent holosystolic murmur over the lower sternum, likely representing tricuspid insufficiency. Lungs are relatively clear to auscultation. I do not appreciate any wheezes or rhonchi. Abdomen is soft without tenderness, rebound tenderness. He has bilateral amputation. Neurologically he moves all four extremities. His speech appears intact, and he is alert and oriented. He is somewhat difficult to understand. LABORATORY DATA: As of 7:00 this morning, his hemoglobin was 8, hematocrit 25, WBC count 8.3, platelet count 142,000. Basic metabolic panel: Potassium 5.5, BUN 24, creatinine 5.6, and glucose 135. Bilirubin was 1.7, albumin 2.3. Digoxin level as of yesterday afternoon was 0.7. INR 1.1. There was no imaging of her chest performed during this hospitalization. There are several ECGs on the file. The initial one from 02/11/2017, 182, reveals probably sinus rhythm, even though the P waves are rather indistinct with left axis deviation and chronic repolarization abnormalities suggestive of ischemia or left ventricular hypertrophy (LVH). The second EKG is from today at 4:52. It reveals atrial fibrillation with rapid ventricular response, 130 beats per minute, and there appeared to be more prominent repolarization abnormalities in leads V4-V6. The third ECG is from today, 1346. It reveals atrial fibrillation with slow ventricular response of 57 beats per minute and the repolarization abnormalities are back to baseline. ASSESSMENT AND PLAN: Mr. Fernandez is an elderly man who has been dialysis dependent for over 20 years and has chronic peripheral vascular disease, status post bilateral above-knee amputation (AKA) and also has known severe pulmonary hypertension based on echocardiogram in our facility in August 2016 (hyperdynamic left ventricular [LV] systolic function, dilated right ventricle, severe tricuspid regurgitation [TR], moderate mitral regurgitation [MR]). He presents with atrial fibrillation with rapid ventricular response (RVR) that is known to be chronic. At this baseline he was on aspirin and Eliquis, but both medications had to be discontinued because of recurrent gastrointestinal bleeding. At this point, I believe that we accomplished a reasonable rate control of atrial fibrillation. He has been on chronic digoxin 0.125 mg three times a week administered during dialysis. I think it is reasonable to put him back on his Cardizem, but I would use immediate-release preparation, probably 60 mg twice a day, withholding for blood pressure and heart rate parameters. Otherwise, I do not think that there is a chance that he could be anticoagulated again. It seems likely that he has underlying coronary artery disease, but without definite evidence of ischemia I am not sure what he can gain from possible coronary intervention. He is not on any lipid-lowering medications, which probably is no longer relevant, but one can consider administration of Zetia. Unfortunately, in the long run I cannot imagine that this gentleman would be a candidate for any invasive procedures. He had DO NOT INTUBATE/DO NOT RESUSCITATE on file.
[2017-02-12] MEDS ORDERED: AMIODARONE HCL 150 MG in APPROPRIATE DILUENT 1 EA IV STA (20:01)
--- NOTE | 2017-02-12 20:34 | ECGEPIP ---
Stationary ECG Study [facility] Test Date: 2017-02-12 Pat Name: CATHI SEBASTIAN Department: Room: [place] [address] Gender: M Hotel Engineer: CELY : 1950 Requested By: JAMES Portillo Order Number: [id number] Reading MD: Dino Gale Measurements Intervals [place] Rate: 130 P: MA: 0 QRS: -55 QRSD: 123 T: 139 QT: 309 QTc: 455 Interpretive Statements Multifocal atrial tachycardia Marked left axis deviation-with anterior hemiblock Low limb voltages with poor precordial R-wave progression and persistent S waves in V5 and V6; body habitus versus pulmonary disease Incomplete LBBB Anterolateral ST/T-wave abnormalities More marked than tracing in 02/11/17. Clinical correlation advised Digoxin is not recommended for this arrhythmia Verapamil is the drug of choice Electronically Signed On 02-12-2017 20:34:38 EDT by Dino Gale
--- NOTE | 2017-02-12 20:58 | ECGEPIP ---
Stationary ECG Study [facility] Test Date: 2017-02-12 Pat Name: CATHI SEBASTIAN Department: Room: [place] [address] Gender: M Supervisor Publications: MOUNA : 1950 Requested By: Yessica Car Order Number: [id number] Reading MD: Dino Gale Measurements Intervals [place] Rate: 57 P: IA: 0 QRS: -44 QRSD: 123 T: 126 QT: 433 QTc: 422 Interpretive Statements Ectopic atrial bradycardia Left axis, prominent precordial voltage, and repolarization abnormalities consistent with LVH. Slower rate than earlier this same day. Electronically Signed On 02-12-2017 20:58:47 EDT by Dino Gale
[2017-02-12] MEDS: NEPHRO-VIT TAB (NEPHROCAPS) PO SCH (21:18)
[2017-02-13] VITALS (20 sets, daily range): BP systolic 98–128; BP diastolic 51–62
[2017-02-13] MEDS: PANTOPRAZOLE 40MG INJ (PROTONIX) (C9113) IV SCH ×2 (05:17→17:00)
[2017-02-13 06:39] LABS: BASO % 0.2 % (0.0-1.0); EOS # 0.2 K/mm3 (0.0-0.50); EOS % 2.6 % (0.0-3.0); LARGE UNSTAINED CELL # 0.1 K/mm3 (0.0-0.4); LARGE UNSTAINED CELL % 1.2 % (0.0-4.0); LYMPH # 1.1 K/mm3 (1.5-4.5); LYMPH % 14.6 % (24.0-44.0); MEAN CORPUSCULAR HEMOGLOBIN 27.2 pg (27.0-33.0); MEAN CORPUSCULAR HGB CONC 31.2 g/dl (32.0-36.5); MEAN CORPUSCULAR VOLUME 87.1 fl (80.0-96.0); MONO # 0.4 K/mm3 (0.0-0.8); MONO % 5.3 % (0.0-5.0); NEUTROPHILS # 5.5 K/mm3 (1.8-7.7); PLATELET COUNT, AUTOMATED 127 k/mm3 (150-450); RED CELL DISTRIBUTION WIDTH 16.9 % (11.5-14.5); WHITE BLOOD COUNT 7.2 K/mm3 (4.0-10.0)
[2017-02-13 07:03] LABS: ALBUMIN 2.2 GM/DL (3.2-5.2); ALBUMIN/GLOBULIN RATIO 0.73 (1.00-1.93); BILIRUBIN,TOTAL 0.8 MG/DL (0.2-1.0); CALCIUM LEVEL 8.2 MG/DL (8.8-10.2); CREATININE FOR GFR 3.53 MG/DL (0.70-1.30); GLOMERULAR FILTRATION RATE 22.4 (>49); POTASSIUM SERUM 4.1 MEQ/L (3.5-5.1); TOTAL PROTEIN 5.2 GM/DL (6.4-8.2)
[2017-02-13] MEDS: IPRATROPIUM 0.5MG/ALBUTEROL 2.5MG INH SOL UD 3ML (DUONEB)(J7620) NEB SCH ×2 (07:28→20:00)
[2017-02-13] MEDS: (RENVELA) SEVELAMER **CARBONate** 800 MG TAB PO SCH ×3 (07:51→17:00)
[2017-02-13] MEDS: GABAPENTIN 300 MG CAP PO SCH (07:52)
[2017-02-13] MEDS ORDERED: BISACODYL 10 MG SUPP PR PRN (09:30)
--- NOTE | 2017-02-13 09:36 | IPNPDOC ---
Date Seen The patient was seen on 02/13/17. Progress Note SUBJECTIVE: The patient tells me that he is feeling better, he has not had any further BM's or blood per rectum since his scope yesterday evening. He denies chest pain shortness of breath fevers or chills Overnight events: The patient received 1 unit of PRBCs OBJECTIVE PHYSICAL EXAMINATION: VITAL SIGNS: Please see below. GENERAL: Frail elderly -Wallisian male sitting up in bed he does not appear to be in any acute distress he smiles I entered the room he appears much brighter and more relaxed than he did previously HEENT: Moist mucous membranes face is chronically asymmetric no appreciable elevation and CVP CARDIOVASCULAR: S1-S2 regular and not tachycardic pansystolic murmur. RESPIRATORY: Diminished breath sounds at the bases but no appreciable rales good air movement. ABDOMINAL: Bowel sounds are present abdomen soft and nontender EXTREMITIES: No clubbing cyanosis or edema fistula and/or fistula scars present , status post bilateral BKA NEUROLOGICAL: Patient is mentating well he is awake alert oriented 3 LABORATORY DATA: Please see below. MICROBIOLOGY: Please see below. DVT prophylaxis ordered?: Sequentials and teds no pharmacological agents in the setting of acute bleed ASSESSMENT AND PLAN: This is a 66 year-old man with acute on chronic GI bleeding. PROBLEMS: 1. GI bleed: The patient have a flexible sigmoidoscopy yesterday evening by Dr. Galvez. He felt 500 mL of fresh clot and blood which she was able to clip the margin of an ulcer near the anal verge. There is concern that the patient is at high risk for rebleeding and as such we will continue to monitor him closely should he rebleed we will need to consult Dr. Alas for more aggressive intervention for the time being the patient appears to be quite stable. He is hemoglobin level has dropped overnight he did receive 1 unit PRBCs once again this morning still appears to be low with an 80 provided with a second unit PRBCs this will be a total of 5 units PRBCs and ephelides actively bleeding at this time. Of note the patient has a history of colonic polyps diverticulosis and radiation proctitis. The patient is on a renal diet at this time he does appear to be improving 2. Atrial flutter: The patient is a known history of A. fib and atrial flutter , and Dr. Zhang that help is greatly appreciated the patient is much better rate controlled at this time and his blood pressure is improved as well. He has been restarted on Dilt and did receive amiodarone yesterday. 3. End-stage renal disease on hemodialysis:dialysis Wednesday. Continue with Nephro-Keely Saldana 4. Secondary hyperparathyroidism: As above 5. Peripheral vascular disease: Status post bilateral below-knee indications stable, the patient on gabapentin for chronic pain 6. Prostate cancer: As outlined above the patient likely has some radiation proctitis 7. Diastolic congestive heart failure: Likely related to his renal disease is going status is not overloaded at this point 8. Hypertension: The patient is actually hypotensive we will hold his antihypertensives, he has been restarted on Dilt at this time 9. Dysphagia: Swallow eval at [facility] recommended mechanical soft diet and nectar thick liquids or thin liquids in special cup, renal diet 10. Moderate severe aortic stenosis: The patient was told at [facility] by policy cancellation clerk there that he may benefit from open heart surgery should he be able to tolerate it in the future,I feel this is doubtful DISPOSITION: Patient's prognosis improved at this time, will transfer to PCU status and continue to monitor closely VS, I&O, 24H, Chidi Vital Signs/I&O Vital Signs Date Time Temp Pulse Resp B/P Pulse Ox O2 Delivery O2 Flow Rate FiO2 02/13/17 07:52 86 117/58 02/13/17 04:00 99.0 20 96 Nasal Cannula 2.0 I&O- Last 24 Hours up to 6 AM 02/13/17 06:00 Intake Total 770 ml Output Total 1500 ml Balance -730 ml Laboratory Data 24H LABS Laboratory Tests 2 02/13/17 06:11: Blood Urea Nitrogen 11#, Creatinine 3.53H, Sodium Level 143, Potassium Level 4.1 #, Chloride Level 106, Carbon Dioxide Level 31, Calcium Level 8.2L, Aspartate Amino Transf (AST/SGOT) 11L, Alanine Aminotransferase (ALT/SGPT) 15, Alkaline Phosphatase 94, Total Bilirubin 0.8#, Total Protein 5.2L, Albumin 2.2L, Albumin/ Globulin Ratio 0.73L, Anion Gap 6L, White Blood Count 7.2, Red Blood Count 2.73L , Hemoglobin 7.4L, Hematocrit 23.8L, Mean Corpuscular Volume 87.1, Mean Corpuscular Hemoglobin 27.2, Mean Corpuscular Hemoglobin Concent 31.2L, Red Cell Distribution Width 16.9H, Platelet Count 127L, Neutrophils (%) (Auto) 76.0H , Lymphocytes (%) (Auto) 14.6L, Monocytes (%) (Auto) 5.3H, Eosinophils (%) (Auto ) 2.6, Basophils (%) (Auto) 0.2, Neutrophils # (Auto) 5.5, Lymphocytes # (Auto) 1.1L, Monocytes # (Auto) 0.4, Eosinophils # (Auto) 0.2, Basophils # (Auto) 0.0, Glomerular Filtration Rate 22.4L, Large Unclassified Cells # 0.1, Large Unclassified Cells % 1.2 CBC/BMP Laboratory Tests 02/12/17 13:30 02/12/17 19:18 02/13/17 01:07 02/13/17 06:11 Calcium Level 8.2 L, Aspartate Amino Transf (AST/SGOT) 11 L, Alanine Aminotransferase (ALT/SGPT) 15, Alkaline Phosphatase 94, Total Bilirubin 0.8 #, Total Protein 5.2 L, Albumin 2.2 L, Red Blood Count 2.73 L, Mean Corpuscular Volume 87.1, Mean Corpuscular Hemoglobin 27.2, Mean Corpuscular Hemoglobin Concent 31.2 L, Red Cell Distribution Width 16.9 H, Neutrophils (%) (Auto) 76.0 H, Lymphocytes (%) (Auto) 14.6 L, Monocytes (%) (Auto) 5.3 H, Eosinophils (%) ( Auto) 2.6, Basophils (%) (Auto) 0.2, Neutrophils # (Auto) 5.5, Lymphocytes # ( Auto) 1.1 L, Monocytes # (Auto) 0.4, Eosinophils # (Auto) 0.2, Basophils # (Auto ) 0.0 YARA WILD MD Feb 13, 2017 09:36
--- NOTE | 2017-02-13 10:19 | IPN ---
DATE: 02/13/2017 Mr. Fernandez completed dialysis yesterday without major events. He had relatively uneventful night. This morning, he feels comfortable and has no specific complaints. He denies any chest pain or shortness of breath. Vital signs: Blood pressure 117/58, heart rate in 70s and 80s. He is afebrile. Saturation 96 on 2 liters of oxygen by nasal cannula. Weight is 85.9 kg. He is alert and oriented appropriate. His jugular venous pulse (JVP) is still mildly elevated. 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 Lungs are relatively clear to auscultation, though I do not appreciate much crackles, wheezing or rhonchi. Heart exam reveals irregularly irregular rhythm. There is a murmur over the aortic valve radiating towards his carotid arteries about 2/6 intensity. I do not appreciate gallop. There is a soft abdomen and he has bilateral iqnes-lnzh-ufzlejaqdd (AKA), neurologically though is intact. Laboratory cannon: Basic metabolic panel: Potassium 4.1, BUN 11, creatinine 3.5, GFR 22, but it is probably meaningless in setting of dialysis, glucose 97, albumin is 2.2. CBC: Hemoglobin 7.4, hematocrit 23.8. ASSESSMENT AND PLAN: Mr. Fernandez is a 66-year-old man who has history of probably paroxysmal atrial fibrillation for years. He presented initially to and later to our facility with gastrointestinal bleeding, which was likely due to stercoral ulcer. It was clipped yesterday, but yet his hemoglobin remains very low in spite of 3 units of blood. At this point,, certainly we should not anticoagulate the patient until we have certainty that the bleeding has completely stopped. As far as the rate control is concerning, he got several doses of amiodarone yesterday, but starting today I started him on Cardizem just 60 mg twice a day. So far the rate appears acceptable. We will see how time goes. On an outpatient basis, he used to be on 240 mg daily long release preparation, plus digoxin 0.125 mg three times a week. Otherwise, I do not have much else to contribute to his management. He does not have known coronary artery disease.
[2017-02-13] MEDS: SODIUM CHLORIDE NASAL 0.65% SPRAY BTL (OCEAN) SCH (20:47)
[2017-02-13] MEDS: NEPHRO-VIT TAB (NEPHROCAPS) PO SCH (20:47)
--- NOTE | 2017-02-13 20:56 | IPN ---
DATE: 02/13/2017 SUBJECTIVE: Mr. Fernandez is seen this morning on his bedside in intensive care unit. He was admitted with rectal bleeding and generalized weakness. He was noticed to have severe anemia due to acute blood loss. He has been transfused and he underwent a flexible sigmoidoscopy yesterday. Rectal ulcer was noticed and acute bleeding was noticed requiring a clip. So far he has received five units of packed red blood cells (RBCs). The patient underwent his regular hemodialysis yesterday without any heparin. He denies any nausea or vomiting. He has no dyspnea or chest pain. There is no fever or chills. PHYSICAL EXAMINATION: VITAL SIGNS: Temperature 98.9 degrees Fahrenheit, heart rate 70 per minute and respiratory rate 20 per minute. Blood pressure 116/54 mmHg and oxygen saturation 100% on two liters oxygen. HEENT: Head is atraumatic. Ears, nose and throat are unremarkable. There is no oral thrush or ulcers and he is edentulous. Trachea is midline and there is no thyroid enlargement or jugular venous distention (JVD). HEART: Sounds are regular in rhythm. LUNGS: Clear to auscultation. ABDOMEN: Soft and nontender and there is no palpable organomegaly. Bowel sounds are normal. EXTREMITIES: Have no cyanosis or clubbing. NEUROLOGIC: He is awake, alert and oriented times three. LABORATORY DATA: Today's labs show WBC count 7.2, hemoglobin 7.4 and hematocrit 23.8. Platelets of 127. Sodium 143 and potassium 4.1. BUN 11 and creatinine 3.53. Calcium level is 8.2. PROBLEMS: 1. Acute blood loss anemia. The patient had rectal bleeding with acute blood loss and severe anemia. He has required five units of packed RBCs so far. He is being monitored and further transfusion will be done as needed. 2. End-stage renal disease. The patient underwent hemodialysis yesterday and he will be scheduled for next hemodialysis on Wednesday. At present there is no indication for urgent dialysis today. 3. Hyperkalemia. His potassium level corrected with hemodialysis. Electrolytes are within normal range now and no intervention is needed at this point. 4. History of atrial fibrillation. Ventricular rate is very well controlled. The patient is not a suitable candidate for anticoagulation due to ongoing rectal bleeding. He remains on digoxin and diltiazem with good control of ventricular rate.
[2017-02-14] VITALS: BP 108/56
[2017-02-14 05:00] VITALS: BP 96/49
[2017-02-14 05:08] LABS: BASO % 0.2 % (0.0-1.0); EOS # 0.2 K/mm3 (0.0-0.50); EOS % 2.1 % (0.0-3.0); LARGE UNSTAINED CELL # 0.1 K/mm3 (0.0-0.4); LYMPH # 1.4 K/mm3 (1.5-4.5); LYMPH % 18.3 % (24.0-44.0); MEAN CORPUSCULAR HGB CONC 30.5 g/dl (32.0-36.5); MEAN CORPUSCULAR VOLUME 88.5 fl (80.0-96.0); MONO # 0.4 K/mm3 (0.0-0.8); MONO % 6.1 % (0.0-5.0); NEUTROPHILS # 5.3 K/mm3 (1.8-7.7); NEUTROPHILS % 72.3 % (36.0-66.0); PLATELET COUNT, AUTOMATED 117 k/mm3 (150-450); WHITE BLOOD COUNT 7.3 K/mm3 (4.0-10.0)
[2017-02-14 05:18] LABS: ALBUMIN 2.3 GM/DL (3.2-5.2); ALBUMIN/GLOBULIN RATIO 0.74 (1.00-1.93); BILIRUBIN,TOTAL 0.6 MG/DL (0.2-1.0); CREATININE FOR GFR 5.27 MG/DL (0.70-1.30); GLOMERULAR FILTRATION RATE 14.1 (>49); TOTAL PROTEIN 5.4 GM/DL (6.4-8.2)
[2017-02-14] MEDS: PANTOPRAZOLE 40MG INJ (PROTONIX) (C9113) IV SCH (05:47)
[2017-02-14] MEDS: IPRATROPIUM 0.5MG/ALBUTEROL 2.5MG INH SOL UD 3ML (DUONEB)(J7620) NEB SCH ×2 (07:20→19:45)
[2017-02-14 08:00] VITALS: BP 124/64
[2017-02-14] MEDS: GABAPENTIN 300 MG CAP PO SCH (08:05)
[2017-02-14] MEDS: VITAMIN D 1,000 INTERNATIONAL UNITS TABLET PO SCH (08:05)
[2017-02-14] MEDS: (RENVELA) SEVELAMER **CARBONate** 800 MG TAB PO SCH ×3 (08:05→17:23)
[2017-02-14] MEDS: SODIUM CHLORIDE NASAL 0.65% SPRAY BTL (OCEAN) SCH ×2 (08:06→20:26)
--- NOTE | 2017-02-14 09:26 | IPNPDOC ---
Date Seen The patient was seen on 02/14/17. Progress Note SUBJECTIVE: The patient tells me that he is feeling good, he complains of some fullness in his ears but otherwise has no complaints. He denies any further bloody bowel movements OBJECTIVE PHYSICAL EXAMINATION: VITAL SIGNS: Please see below. GENERAL: Frail elderly -Iraqi male sitting up in bed he does not appear to be in any acute distress HEENT: Moist mucous membranes face is chronically asymmetric no appreciable elevation and CVP, extensive wax in ear b/l CARDIOVASCULAR: S1-S2 regular and not tachycardic pansystolic murmur. RESPIRATORY: Diminished breath sounds at the bases but no appreciable rales good air movement. ABDOMINAL: Bowel sounds are present abdomen soft and nontender EXTREMITIES: No clubbing cyanosis or edema, fistula and old fistula scars present, status post bilateral BKA NEUROLOGICAL: Patient is mentating well he is awake alert oriented 3 LABORATORY DATA: Please see below. MICROBIOLOGY: Please see below. DVT prophylaxis ordered?: teds no pharmacological agents in the setting of acute bleed ASSESSMENT AND PLAN: This is a 66 year-old man with acute on chronic GI bleeding. PROBLEMS: 1. GI bleed: The patient have a flexible sigmoidoscopy with noted bleeder and clips were placed at the margin of an ulcer near the anal verge. There is concern that the patient is at high risk for rebleeding and as such we will continue to monitor him closely should he rebleed we will need to consult Dr. Alas for more aggressive intervention for the time being the patient appears to be quite stable. He is hemoglobin level has remained stable, he is below 8 hgb and may benefit from an additional unit during HD tomorrow, will defer to nephrology. Of note the patient has a history of colonic polyps diverticulosis and radiation proctitis. The patient is on a renal diet at this time he does appear to be improving 2. Atrial fibrillation/flutter: The patient is a known history of A. fib and atrial flutter 's help is greatly appreciated the patient is much better rate controlled at this time and his blood pressure is improved as well. He has been restarted on Dilt but short acting opposed to the long acting he was on prior to admission. 3. End-stage renal disease on hemodialysis:dialysis Wednesday. Continue with Nephro-Keely Renvela 4. Secondary hyperparathyroidism: As above 5. Peripheral vascular disease: Status post bilateral below-knee indications stable, the patient on gabapentin for chronic pain 6. Prostate cancer: As outlined above the patient likely has some radiation proctitis 7. Diastolic congestive heart failure: Likely related to his renal disease his volume status is not overloaded at this point 8. Hypertension: Soft bp, will cont to monitor 9. Dysphagia: Swallow eval at [facility] recommended mechanical soft diet and nectar thick liquids or thin liquids in special cup, renal diet 10. Moderate severe aortic stenosis: The patient was told at [facility] by toy designer there that he may benefit from open heart surgery should he be able to tolerate it in the future,I feel this is doubtful DISPOSITION: Patient's prognosis improved at this time, will continue to monitor closely VS, I&O, 24H, [facility] Vital Signs/I&O Vital Signs Date Time Temp Pulse Resp B/P Pulse Ox O2 Delivery O2 Flow Rate FiO2 02/14/17 08:05 102 102/58 02/14/17 08:00 99.3 18 98 Room Air 02/14/17 05:00 1.0 I&O- Last 24 Hours up to 6 AM 02/14/17 05:59 Intake Total 1380 ml Output Total 0 ml Balance 1380 ml Laboratory Data 24H LABS Laboratory Tests 2 02/14/17 04:35: Blood Urea Nitrogen 18#, Creatinine 5.27H, Sodium Level 143, Potassium Level 4.0 , Chloride Level 106, Carbon Dioxide Level 30, Calcium Level 8.0L, Aspartate Amino Transf (AST/SGOT) 11L, Alanine Aminotransferase (ALT/SGPT) 13, Alkaline Phosphatase 88, Total Bilirubin 0.6, Total Protein 5.4L, Albumin 2.3L, Albumin/ Globulin Ratio 0.74L, Anion Gap 7L, White Blood Count 7.3, Red Blood Count 2.88L , Hemoglobin 7.8L, Hematocrit 25.5L, Mean Corpuscular Volume 88.5, Mean Corpuscular Hemoglobin 27.0, Mean Corpuscular Hemoglobin Concent 30.5L, Red Cell Distribution Width 17.0H, Platelet Count 117L, Neutrophils (%) (Auto) 72.3H , Lymphocytes (%) (Auto) 18.3L, Monocytes (%) (Auto) 6.1H, Eosinophils (%) (Auto ) 2.1, Basophils (%) (Auto) 0.2, Neutrophils # (Auto) 5.3, Lymphocytes # (Auto) 1.4L, Monocytes # (Auto) 0.4, Eosinophils # (Auto) 0.2, Basophils # (Auto) 0.0, Glomerular Filtration Rate 14.1L, Large Unclassified Cells # 0.1, Large Unclassified Cells % 1.0 CBC/BMP Laboratory Tests 02/13/17 13:27 02/14/17 04:35 Calcium Level 8.0 L, Aspartate Amino Transf (AST/SGOT) 11 L, Alanine Aminotransferase (ALT/SGPT) 13, Alkaline Phosphatase 88, Total Bilirubin 0.6, Total Protein 5.4 L, Albumin 2.3 L, Red Blood Count 2.88 L, Mean Corpuscular Volume 88.5, Mean Corpuscular Hemoglobin 27.0, Mean Corpuscular Hemoglobin Concent 30.5 L, Red Cell Distribution Width 17.0 H, Neutrophils (%) (Auto) 72.3 H, Lymphocytes (%) (Auto) 18.3 L, Monocytes (%) (Auto) 6.1 H, Eosinophils (%) ( Auto) 2.1, Basophils (%) (Auto) 0.2, Neutrophils # (Auto) 5.3, Lymphocytes # ( Auto) 1.4 L, Monocytes # (Auto) 0.4, Eosinophils # (Auto) 0.2, Basophils # (Auto ) 0.0 YARA WILD MD Feb 14, 2017 09:26
[2017-02-14] MEDS: CARBAMIDE PEROXIDE 6.5% OTIC SOLN 15ML AU SCH ×2 (11:04→20:26)
[2017-02-14 12:00] VITALS: BP 140/61
[2017-02-14 14:45] VITALS: BP 107/54
--- NOTE | 2017-02-14 19:35 | IPN ---
DATE: 02/14/2017 Mr. Fernandez is seen this morning at his bedside in intensive care unit. He is feeling better and reports that his rectal bleeding has stopped. He has not required any further transfusions since yesterday. He was initially admitted with severe anemia with active rectal bleeding. He did have a flexible sigmoidoscopy done and acute bleeding was noticed, which has been stopped with a clip. He has required 5 units of packed red blood cells so far. On physical evaluation, temperature 99 degrees Fahrenheit, heart rate 86 per minute and respiratory rate 18 per minute. Blood pressure 140/60 mmHg and oxygen saturation 99% on room air. His head is atraumatic. Ears, nose and throat are unremarkable. He is edentulous, without any oral thrush or ulcers. Neck is supple and without jugular venous distention (JVD) or thyroid enlargement. Heart sounds are irregular. Lungs have good bilateral air entry without any wheezing or rales. Abdomen soft and nontender and bowel sounds are normal. There is no palpable organomegaly. Extremities have no cyanosis or clubbing. Left forearm atrioventricular (AV) fistula is patent. He has bilateral [id number] amputations. Neurologically, he is awake, alert and oriented times three. Today's laboratories show WBC count 7.3, hemoglobin 7.8 and hematocrit 25.5. Platelets 117. Sodium 143 and potassium 4.0. BUN 18 and creatinine 5.27. Total protein 5.4 and albumin 2.3. PROBLEMS: 1. Acute blood loss anemia. Patient had rectal bleeding with acute blood loss anemia. His bleeding has stopped and anemia is stable. We will give him one more unit of packed red blood cells with his next hemodialysis tomorrow. 2. Rectal bleeding. Patient had a rectal ulcer with acute bleeding, which required sleeping and bleeding seems to be stable at present. We will need to monitor him for at least the next 48 hours. 3. End-stage renal disease. Patient is on maintenance hemodialysis three times a week. His next dialysis will be scheduled for Wednesday. 4. Atrial fibrillation. Ventricular rate is very well controlled at present. Patient has not a suitable candidate for anticoagulation. DISPOSITION: Patient can be transferred out of ICU to regular medical floor from a renal standpoint.
[2017-02-14] MEDS: NEPHRO-VIT TAB (NEPHROCAPS) PO SCH (20:23)
[2017-02-14] MEDS: ACETAMINOPHEN TAB 650MG DOSE (2X325MG) PO PRN (20:25)
[2017-02-14 22:00] VITALS: BP 132/58
[2017-02-15 06:00] VITALS: BP 116/56
[2017-02-15 06:27] LABS: BASO % 0.1 % (0.0-1.0); EOS # 0.1 K/mm3 (0.0-0.50); EOS % 1.5 % (0.0-3.0); LARGE UNSTAINED CELL # 0.1 K/mm3 (0.0-0.4); LARGE UNSTAINED CELL % 1.1 % (0.0-4.0); MEAN CORPUSCULAR HEMOGLOBIN 26.6 pg (27.0-33.0); MEAN CORPUSCULAR HGB CONC 29.5 g/dl (32.0-36.5); MEAN CORPUSCULAR VOLUME 90.1 fl (80.0-96.0); MONO # 0.4 K/mm3 (0.0-0.8); MONO % 6.4 % (0.0-5.0); NEUTROPHILS # 4.6 K/mm3 (1.8-7.7); PLATELET COUNT, AUTOMATED 109 k/mm3 (150-450); RED CELL DISTRIBUTION WIDTH 17.3 % (11.5-14.5); WHITE BLOOD COUNT 6.2 K/mm3 (4.0-10.0)
[2017-02-15] MEDS: GABAPENTIN 300 MG CAP PO SCH (06:43)
[2017-02-15] MEDS: (RENVELA) SEVELAMER **CARBONate** 800 MG TAB PO SCH ×3 (06:43→18:32)
[2017-02-15] MEDS: VITAMIN D 1,000 INTERNATIONAL UNITS TABLET PO SCH (06:43)
[2017-02-15] MEDS: SODIUM CHLORIDE NASAL 0.65% SPRAY BTL (OCEAN) SCH ×2 (06:44→20:17)
[2017-02-15] MEDS: CARBAMIDE PEROXIDE 6.5% OTIC SOLN 15ML AU SCH ×2 (06:44→20:18)
[2017-02-15 06:54] LABS: ALBUMIN 2.2 GM/DL (3.2-5.2); ALBUMIN/GLOBULIN RATIO 0.65 (1.00-1.93); BILIRUBIN,TOTAL 0.4 MG/DL (0.2-1.0); CALCIUM LEVEL 8.2 MG/DL (8.8-10.2); CREATININE FOR GFR 7.11 MG/DL (0.70-1.30); POTASSIUM SERUM 4.1 MEQ/L (3.5-5.1); TOTAL PROTEIN 5.6 GM/DL (6.4-8.2)
[2017-02-15] MEDS: IPRATROPIUM 0.5MG/ALBUTEROL 2.5MG INH SOL UD 3ML (DUONEB)(J7620) NEB SCH ×2 (07:08→19:28)
[2017-02-15] MEDS: PANTOPRAZOLE 40MG TAB (PROTONIX) PO SCH (08:03)
--- NOTE | 2017-02-15 12:33 | IPNPDOC ---
Date Seen The patient was seen on 02/15/17. Progress Note SUBJECTIVE: The patient tells me that he is feeling well, he has no complaints today. He denies any further episodes of bleeding since his procedure. OBJECTIVE PHYSICAL EXAMINATION: VITAL SIGNS: Please see below. GENERAL: Frail elderly -[place]vian male sitting up in bed watching tv, he does not appear to be in any acute distress HEENT: Moist mucous membranes face is chronically asymmetric, he does appear to have elevation of CVP CARDIOVASCULAR: S1-S2 regular and not tachycardic pansystolic murmur. RESPIRATORY: Diminished breath sounds at the bases but no appreciable rales good air movement. ABDOMINAL: Bowel sounds are present abdomen soft and nontender EXTREMITIES: No clubbing cyanosis or edema, fistula and old fistula scars present, status post bilateral BKA LABORATORY DATA: Please see below. MICROBIOLOGY: Please see below. DVT prophylaxis ordered?: teds no pharmacological agents in the setting of acute bleed ASSESSMENT AND PLAN: This is a 66 year-old man with acute on chronic GI bleeding. PROBLEMS: 1. GI bleed: The patient have a flexible sigmoidoscopy with noted bleeder and clips were placed at the margin of an ulcer near the anal verge. There is concern that the patient is at high risk for rebleeding and as such we will continue to monitor him closely should he rebleed we will need to consult Dr. Alas for more aggressive intervention for the time being the patient appears to be quite stable. He is hemoglobin level has remained stable, he is below 8 hgb and may benefit from an additional unit during HD. Of note the patient has a history of colonic polyps diverticulosis and radiation proctitis. The patient is on a renal diet at this time he does appear to be improving 2. Atrial fibrillation/flutter: The patient is a known history of A. fib and atrial flutter 's help is greatly appreciated the patient is much better rate controlled at this time and his blood pressure is improved as well. He has been restarted on Dilt but short acting opposed to the long acting he was on prior to admission. 3. End-stage renal disease on hemodialysis:dialysis Wednesday. Continue with Nephro-Keely Renvela 4. Secondary hyperparathyroidism: As above 5. Peripheral vascular disease: Status post bilateral below-knee indications stable, the patient on gabapentin for chronic pain 6. Prostate cancer: As outlined above the patient likely has some radiation proctitis 7. Diastolic congestive heart failure: Likely related to his renal disease his volume status is not overloaded at this point 8. Hypertension: Soft bp, will cont to monitor 9. Dysphagia: Swallow eval at [facility] recommended mechanical soft diet and nectar thick liquids or thin liquids in special cup, renal diet 10. Moderate severe aortic stenosis: The patient was told at [facility] by marine steam fitter there that he may benefit from open heart surgery should he be able to tolerate it in the future,I feel this is doubtful 11. Low grade temperature, patient has received several blood transfusions, would simply monitor for now, no signs of active infecion. DISPOSITION: Patient's prognosis improved at this time, will continue to monitor closely, may be able to be dispo'd back to [facility] within the next 24-48 hours if he remains stable and close f/u with GI VS, I&O, 24H, Fishbone Vital Signs/I&O Vital Signs Date Time Temp Pulse Resp B/P Pulse Ox O2 Delivery O2 Flow Rate FiO2 02/15/17 06:43 82 116/56 02/15/17 06:00 98.0 17 98 Room Air 02/14/17 08:00 1.0 I&O- Last 24 Hours up to 6 AM 02/15/17 06:00 Intake Total 940 ml Output Total 0 ml Balance 940 ml Laboratory Data 24H LABS Laboratory Tests 2 02/15/17 05:19: Blood Urea Nitrogen 31#H, Creatinine 7.11H, Sodium Level 144, Potassium Level 4.1, Chloride Level 106, Carbon Dioxide Level 28, Calcium Level 8.2L, Aspartate Amino Transf (AST/SGOT) 12L, Alanine Aminotransferase (ALT/SGPT) 13, Alkaline Phosphatase 104, Total Bilirubin 0.4, Total Protein 5.6L, Albumin 2.2L, Albumin/ Globulin Ratio 0.65L, Anion Gap 10, White Blood Count 6.2, Red Blood Count 2.74L , Hemoglobin 7.3L, Hematocrit 24.7L, Mean Corpuscular Volume 90.1, Mean Corpuscular Hemoglobin 26.6L, Mean Corpuscular Hemoglobin Concent 29.5L, Red Cell Distribution Width 17.3H, Platelet Count 109L, Neutrophils (%) (Auto) 75.0H , Lymphocytes (%) (Auto) 16.0L, Monocytes (%) (Auto) 6.4H, Eosinophils (%) (Auto ) 1.5, Basophils (%) (Auto) 0.1, Neutrophils # (Auto) 4.6, Lymphocytes # (Auto) 1.0L, Monocytes # (Auto) 0.4, Eosinophils # (Auto) 0.1, Basophils # (Auto) 0.0, Glomerular Filtration Rate 10.0L, Large Unclassified Cells # 0.1, Large Unclassified Cells % 1.1 CBC/BMP Laboratory Tests 02/15/17 05:19 Calcium Level 8.2 L, Aspartate Amino Transf (AST/SGOT) 12 L, Alanine Aminotransferase (ALT/SGPT) 13, Alkaline Phosphatase 104, Total Bilirubin 0.4, Total Protein 5.6 L, Albumin 2.2 L, Red Blood Count 2.74 L, Mean Corpuscular Volume 90.1, Mean Corpuscular Hemoglobin 26.6 L, Mean Corpuscular Hemoglobin Concent 29.5 L, Red Cell Distribution Width 17.3 H, Neutrophils (%) (Auto) 75.0 H, Lymphocytes (%) (Auto) 16.0 L, Monocytes (%) (Auto) 6.4 H, Eosinophils (%) ( Auto) 1.5, Basophils (%) (Auto) 0.1, Neutrophils # (Auto) 4.6, Lymphocytes # ( Auto) 1.0 L, Monocytes # (Auto) 0.4, Eosinophils # (Auto) 0.1, Basophils # (Auto ) 0.0 YARA WILD MD Feb 15, 2017 12:33
[2017-02-15 14:00] VITALS: BP 127/58
[2017-02-15] MEDS: DIGOXIN 0.125 MG TAB PO SCH (18:34)
[2017-02-15] MEDS: NEPHRO-VIT TAB (NEPHROCAPS) PO SCH (20:17)
--- NOTE | 2017-02-15 21:08 | IPN ---
DATE: 02/15/2017 SUBJECTIVE: The patient was seen and examined at the bedside today in the morning during hemodialysis procedure. The patient was tolerating the hemodialysis procedure well. He is also getting packed red blood cells transfusion during hemodialysis because of blood loss anemia. REVIEW OF SYSTEMS: The patient denies any fever, chills, rigors, headache, nausea, vomiting, chest pain, shortness of breath, pain in abdomen, constipation and he denies any more active rectal bleeding. OBJECTIVE: VITAL SIGNS: Temperature is 98 degrees Fahrenheit, blood pressure is 116/56, pulse is 82, respiratory rate of 17, saturating 98% on room air. INTAKE/OUTPUT: Urine output is not recorded. Weight on the bed scale is 87.3 kg. PHYSICAL EXAMINATION: GENERAL: The patient is awake, alert, oriented times three, laying in bed, getting hemodialysis, no apparent distress. HEAD AND NECK EXAM: The patient has a squint. Mucous membranes are moist. Neck is supple. There is no jugular venous distention (JVD). CARDIOVASCULAR: S1,S2,Irregular rate. No murmur, rub or gallop. RESPIRATORY: Chest is clear to auscultation bilaterally. Bilateral equal air entry. No rales or rhonchi. ABDOMEN: Abdomen is soft. Positive bowel sounds. Nontender. No ascites. No organomegaly. EXTREMITIES: No clubbing or cyanosis. The patient has a left forearm AV fistula, which is being used for dialysis. The patient has bilateral below-knee amputations. CENTRAL NERVOUS SYSTEM: The patient is alert and oriented times three, power 5/ 5 in bilateral upper extremities. CBC showed a WBC of 6.2, hemoglobin 7.3, platelets are 109. BMP showed sodium 144, potassium 4.1, chloride 106, bicarbonate 28, BUN 31, creatinine is 7.1, calcium is 8.2, albumin is 2.2. CURRENT MEDICATIONS: The patient's medications were all reviewed by me. There is no change in medications today as compared with yesterday. ASSESSMENT AND PLAN: 1. Acute blood loss anemia. The patient's hemoglobin is 7.3 today. He will be given two units of packed red blood cells during hemodialysis. 2. End-stage renal disease. The patient's regular days are Wednesday, Wednesday, Wednesday. He is being dialyzed according to his regular schedule. We shall to do an ultrafiltration of two liters as tolerated by his blood pressure. 3. Atrial fibrillation, atrial flutter. The patient's anticoagulation is on hold because of recurrent gastrointestinal (GI) bleeding. Cont Cardizem 60 mg by mouth twice a day and digoxin 0.125 mg by mouth Wednesday, Wednesday, Wednesday. 4. Rectal bleeding. The patient had a bleeding ulcer, which was clipped during endoscopy. No more active bleeding at this time. Continue to monitor the CBC. Packed red blood cells transfusion as mentioned above. MTDD
[2017-02-15 22:00] VITALS: BP 126/61
[2017-02-16 06:00] VITALS: BP 109/55
[2017-02-16 06:33] LABS: ADD MORPHOLOGY? YES; BASO % 0.1 % (0.0-1.0); EOS # 0.1 K/mm3 (0.0-0.50); EOS % 2.2 % (0.0-3.0); LARGE UNSTAINED CELL # 0.1 K/mm3 (0.0-0.4); LARGE UNSTAINED CELL % 1.4 % (0.0-4.0); LYMPH # 0.9 K/mm3 (1.5-4.5); LYMPH % 14.4 % (24.0-44.0); MEAN CORPUSCULAR HEMOGLOBIN 27.7 pg (27.0-33.0); MEAN CORPUSCULAR HGB CONC 31.3 g/dl (32.0-36.5); MEAN CORPUSCULAR VOLUME 88.4 fl (80.0-96.0); MONO # 0.3 K/mm3 (0.0-0.8); NEUTROPHILS # 4.3 K/mm3 (1.8-7.7); NEUTROPHILS % 76.9 % (36.0-66.0); PLATELET COUNT, AUTOMATED 105 k/mm3 (150-450); RED CELL DISTRIBUTION WIDTH 16.8 % (11.5-14.5); WHITE BLOOD COUNT 5.6 K/mm3 (4.0-10.0)
[2017-02-16 06:42] LABS: ALBUMIN 2.2 GM/DL (3.2-5.2); ALBUMIN/GLOBULIN RATIO 0.59 (1.00-1.93); BILIRUBIN,TOTAL 0.8 MG/DL (0.2-1.0); CALCIUM LEVEL 8.5 MG/DL (8.8-10.2); CREATININE FOR GFR 4.77 MG/DL (0.70-1.30); GLOMERULAR FILTRATION RATE 15.8 (>49); POTASSIUM SERUM 4.3 MEQ/L (3.5-5.1); TOTAL PROTEIN 5.9 GM/DL (6.4-8.2)
[2017-02-16 07:08] LABS: ANISOCYTOSIS 1+; HYPOCHROMASIA 1+
[2017-02-16] MEDS: IPRATROPIUM 0.5MG/ALBUTEROL 2.5MG INH SOL UD 3ML (DUONEB)(J7620) NEB SCH ×2 (07:35→19:47)
[2017-02-16] MEDS: (RENVELA) SEVELAMER **CARBONate** 800 MG TAB PO SCH ×3 (08:10→17:59)
[2017-02-16] MEDS: VITAMIN D 1,000 INTERNATIONAL UNITS TABLET PO SCH (08:10)
[2017-02-16] MEDS: PANTOPRAZOLE 40MG TAB (PROTONIX) PO SCH (08:10)
[2017-02-16] MEDS: GABAPENTIN 300 MG CAP PO SCH (08:10)
[2017-02-16] MEDS: SODIUM CHLORIDE NASAL 0.65% SPRAY BTL (OCEAN) SCH ×2 (08:16→20:20)
[2017-02-16] MEDS: CARBAMIDE PEROXIDE 6.5% OTIC SOLN 15ML AU SCH ×2 (08:16→20:20)
--- NOTE | 2017-02-16 11:20 | IPN ---
DATE: 02/16/2017 66-year-old gentleman seen at bedside. No overnight issues reported. Resting comfortably. He is due for dialysis tomorrow. No hematemesis. No hematochezia or melena. He is tolerating his oral intake. OBJECTIVE: Temperature is 98.4, pulse is 89 and regular, respiratory rate is 16, blood pressure is 126/61, SpO2 is 97% on room air. GENERAL: The patient appears to be in no acute distress. He is alert, pleasant. HEENT: Unremarkable. LUNGS: Clear. HEART: Regular rate and rhythm. ABDOMEN: Soft. EXTREMITIES: No edema. No calf tenderness. LABORATORY DATA: White count is 5.6, hemoglobin 8.7 up from 7.3 yesterday, platelets are 105,000. Sodium 142, potassium 4.3, chloride 105, bicarbonate 29, anion gap 8, BUN 17, creatinine 4.77, down from 7.11, glucose is 114. AST 12, ALT 14, alkaline phosphatase 104. ASSESSMENT AND PLAN: 1. Gastrointestinal bleed, which is from a lower gastrointestinal source. Flexible sigmoidoscopy performed. Appreciate Dr. Heath's assistance with clips placed. The patient has not shown any further issues with hematochezia or melena. His hemoglobin appears to be stable and does appear to be rising, it is 8.7 today. Did have a discussion with his retirement provider and they would like for us to show one more day of increasing trend in his hemoglobin and hematocrit. We will watch him through the day today. He does have hemodialysis scheduled for tomorrow, which he will receive. Depending on timing, he may end up needing to stay an additional day. At any rate, we will continue to follow. He does not show any signs of re-bleeding. He may need to eventually followup outpatient with surgeon as well for further endoscopic followup. 2. Atrial fibrillation/atrial flutter. This is a known chronic history. Dr. Car has seen the patient. He has been restarted on diltiazem. He does appear to be rate controlled. Anticoagulation therapy is on hold due to gastrointestinal bleed. 3. End-stage renal disease requiring hemodialysis on Wednesday, Wednesday and Wednesday. Continue on Nephro-Keely and Renvela. He is scheduled for dialysis tomorrow. 4. Secondary hyperparathyroidism due to end stage renal disease. This appears to be stable. 5. Peripheral vascular disease, status post bilateral below the knee amputations, stable. Continue gabapentin for chronic pain. 6. Prostate cancer. He is status post radiation with radiation proctitis. This appears to be stable, but perhaps contributing to his rectal bleeding. 7. Hypertension. Soft blood pressure previously. We will continue to monitor. This appears to be stable. We will followup for now. 8. Dysphagia. Swallow evaluation done at [facility] recommended mechanical soft diet with nectar-thickened liquids or thin liquids in a special cup and renal diet. We will continue with diet as outlined. 9. Moderate to severe aortic stenosis. Sees cardiology at [facility] as well. May benefit from open heart surgery should he be able to tolerate it in the future. We have been doubtful for that due to his underlying issues with other medical complications. 10. Low grade temperature previously. He did have several blood transfusions, total of seven at this point. He has not had any further elevation in his temperature. We will continue to monitor. He does not have any signs of active infection at this time. DISPOSITION: His prognosis is improved. Continue to monitor. Depending on the timing for his hemodialysis tomorrow, as well as with repeat hemoglobin and hematocrit, we may be able to facilitate a transfer back to [facility] within the next 24 to 48 hours with close followup with GI as an outpatient.
--- NOTE | 2017-02-16 13:45 | IPN ---
DATE: 02/16/2017 SUBJECTIVE: Patient was seen and examined in the bedside today in the morning. He denies any more rectal bleeding. He was dialyzed yesterday. He tolerated the hemodialysis procedure well yesterday. He was given two units of packed red blood cell (PRBC) transfusion. His hemoglobin is stable at 8.7. REVIEW OF SYSTEMS: Patient denies any fever, chills, rigors, headache, nausea, vomiting, chest pain, shortness of breath, pain in abdomen, constipation, or diarrhea. He denies any more rectal bleeding. Rest of review of systems is negative. OBJECTIVE: VITAL SIGNS: Temperature 98.4 degrees Fahrenheit, blood pressure 109/55, pulse 89, respiratory rate of 16, saturating 95% on room air. INTAKE/OUTPUT: Urine output is not recorded. Hemodialysis ultrafiltration was 2 liters. Weight in the bed scale was 87.3 kg. No bed weight is available today. PHYSICAL EXAMINATION: GENERAL: Patient is awake, alert, oriented times three, laying in bed, in no apparent distress. HEAD and NECK EXAM: Patient has a squint. Mucous membranes are moist. Neck is supple, there is no jugular venous distention (JVD). CARDIOVASCULAR: S1, S2, irregular rate. No murmur, rub, or gallop. RESPIRATORY: Chest is clear to auscultation bilaterally. Bilateral equal air entry. No rales or rhonchi. ABDOMEN: Soft. Positive bowel sounds. Nontender. No ascites. No organomegaly. EXTREMITIES: No clubbing or cyanosis. Patient has a left forearm arteriovenous (AV) fistula which has a positive thrill and bruit and he has bilateral below knee amputations. CENTRAL NERVOUS SYSTEM (TICKET WRITER): Patient is alert and oriented times three. He follows commands. Power is 5/5 in bilateral upper extremities. LABORATORY REVIEW: CBC showed WBC 5.6, hemoglobin 8.7, it was 7.3 yesterday, platelets are 105. BMP showed sodium 142, potassium 4.3, chloride 105, bicarbonate 29, BUN 17, creatinine 4.7. CURRENT MEDICATIONS: Patient's medications were all reviewed by me. There is no change in the medications today as compared with yesterday. ASSESSMENT AND PLAN: 1. End-stage renal disease on hemodialysis. Patient's regular dialysis days are Wednesday, Wednesday, Wednesday. He was dialyzed yesterday. No urgent need of hemodialysis today. Next hemodialysis session will be tomorrow. 2. Acute blood loss anemia. Patient's hemoglobin was 7.3 yesterday. He got two units of packed red blood cell (PRBC) transfusion. Hemoglobin has improved to 8.7 today. Continue to monitor for now. No urgent need of blood transfusion today. 3. Atrial fibrillation. Patient's heart rate is controlled at this time. His anticoagulation is on hold because of recent gastrointestinal (GI) bleeding. Continue Cardizem 60 mg twice a day and digoxin 0.125 mg by mouth on dialysis days. 4. Hyperphosphatemia. Continue current dose of Renvela 800 mg by mouth three times a day with meals.
[2017-02-16 14:00] VITALS: BP 121/59
[2017-02-16] MEDS: NEPHRO-VIT TAB (NEPHROCAPS) PO SCH (20:19)
[2017-02-16] MEDS: ACETAMINOPHEN TAB 650MG DOSE (2X325MG) PO PRN (20:28)
[2017-02-16 22:00] VITALS: BP 124/59
[2017-02-17] MEDS: PANTOPRAZOLE 40MG TAB (PROTONIX) PO SCH (06:01)
[2017-02-17] MEDS: VITAMIN D 1,000 INTERNATIONAL UNITS TABLET PO SCH (06:02)
[2017-02-17] MEDS: CARBAMIDE PEROXIDE 6.5% OTIC SOLN 15ML AU SCH ×2 (06:02→20:25)
[2017-02-17] MEDS: SODIUM CHLORIDE NASAL 0.65% SPRAY BTL (OCEAN) SCH ×2 (06:02→20:26)
[2017-02-17] MEDS: GABAPENTIN 300 MG CAP PO SCH (06:02)
[2017-02-17 06:13] LABS: BASO % 0.2 % (0.0-1.0); EOS # 0.2 K/mm3 (0.0-0.50); LARGE UNSTAINED CELL # 0.1 K/mm3 (0.0-0.4); LARGE UNSTAINED CELL % 1.3 % (0.0-4.0); LYMPH # 0.9 K/mm3 (1.5-4.5); LYMPH % 16.2 % (24.0-44.0); MEAN CORPUSCULAR HEMOGLOBIN 27.4 pg (27.0-33.0); MEAN CORPUSCULAR HGB CONC 30.7 g/dl (32.0-36.5); MEAN CORPUSCULAR VOLUME 89.5 fl (80.0-96.0); MONO # 0.3 K/mm3 (0.0-0.8); MONO % 5.2 % (0.0-5.0); NEUTROPHILS % 74.1 % (36.0-66.0); PLATELET COUNT, AUTOMATED 114 k/mm3 (150-450); RED CELL DISTRIBUTION WIDTH 16.4 % (11.5-14.5); WHITE BLOOD COUNT 5.4 K/mm3 (4.0-10.0)
[2017-02-17 06:37] LABS: ALBUMIN 2.4 GM/DL (3.2-5.2); ALBUMIN/GLOBULIN RATIO 0.63 (1.00-1.93); BILIRUBIN,TOTAL 0.6 MG/DL (0.2-1.0); CALCIUM LEVEL 8.5 MG/DL (8.8-10.2); CREATININE FOR GFR 6.74 MG/DL (0.70-1.30); GLOMERULAR FILTRATION RATE 10.6 (>49); POTASSIUM SERUM 4.4 MEQ/L (3.5-5.1); TOTAL PROTEIN 6.2 GM/DL (6.4-8.2)
[2017-02-17] MEDS ORDERED: DARBEPOETIN 100 MCG/0.5 ML *DIALYSIS* SYRINGE (J0882) IV SCH (06:45)
[2017-02-17] MEDS: IPRATROPIUM 0.5MG/ALBUTEROL 2.5MG INH SOL UD 3ML (DUONEB)(J7620) NEB SCH ×2 (07:22→20:33)
[2017-02-17] MEDS: (RENVELA) SEVELAMER **CARBONate** 800 MG TAB PO SCH ×3 (09:30→18:02)
--- NOTE | 2017-02-17 13:30 | IPN ---
DATE: 02/17/2017 66-year-old gentleman seen at bedside resting comfortably, no issues reported overnight. No chest pain, nausea or vomiting. He is due for dialysis today. OBJECTIVE: Temperature is 98.1, pulse 83, respiratory rate is 20, blood pressure 124/59, SPO2 is 94% on room air. General: The patient appears to be in no acute distress. Is alert and oriented. HEENT: Unremarkable. Lungs: Clear. Heart: Regular rhythm. Abdomen: Soft. Extremities: No edema, calf tenderness. LABORATORY DATA: White count 5.4, platelet count 114,000, sodium 141, potassium 4.4, chloride 104, bicarb 0.29, anion gap 88, BUN is 28, creatinine 6.74, glucose 103. ASSESSMENT/PLAN: 1. GI bleed likely lower from lower GI source flexible sigmoidoscopy was performed. Dr. Heath's assistance was appreciated and a clip was placed and will likely need outpatient followup. 2. Atrial fibrillation with atrial flutter. Continue with rate controlling medications. Anticoagulation therapy on hold due to GI bleed. The patient is rate controlled better on his diltiazem with current dose. Anticoagulation therapy has been held. 3. End-stage renal disease requiring hemodialysis. He is due for dialysis today. We will see how he does, we will monitor his H H throughout today, tomorrow and hopefully get him discharged back to the [facility]. 4. Secondary hyperparathyroidism secondary to end-stage renal disease, appears stable. 5. History of peripheral vascular disease status post bilateral below the knee amputations (BKAs). Continued gabapentin for chronic pain. 6. Prostate cancer. Status post radiation with prior history of radiation proctitis. No current issues but may have been a contributing factor to his rectal bleeding. 7. Hypertension. Blood pressures previously have been stopped. He is stable now and I will make sure that he resumes his appropriate medications on discharging and appropriate followup. 8. Dysphasia. Swallow evaluation done at [facility]. Recommended mechanical soft diet and nectar thickened liquids or thin liquid. Special cup with renal diet. We will continue to diet as outlined. 9. Moderate to severe aortic stenosis. Likely not a good candidate for surgery, we will defer to his full stack java developer and primary care provider. 10. Low grade temperature previously likely related to blood transfusions, this is resolving, he has no active signs of infection. DISPOSITION: Prognosis is improved. We will continue to monitor throughout the night . Hemodialysis today and likely discharge to [facility] tomorrow.
[2017-02-17 14:00] VITALS: BP 114/53
[2017-02-17] MEDS ORDERED: DILT60TA PO (15:39)
[2017-02-17] MEDS: DIGOXIN 0.125 MG TAB PO SCH (18:01)
[2017-02-17] MEDS: NEPHRO-VIT TAB (NEPHROCAPS) PO SCH (20:24)
[2017-02-17 22:00] VITALS: BP 116/56
[2017-02-18 06:21] LABS: BASO % 0.2 % (0.0-1.0); EOS # 0.2 K/mm3 (0.0-0.50); EOS % 2.8 % (0.0-3.0); LARGE UNSTAINED CELL # 0.1 K/mm3 (0.0-0.4); LYMPH # 0.9 K/mm3 (1.5-4.5); LYMPH % 14.8 % (24.0-44.0); MEAN CORPUSCULAR HGB CONC 30.9 g/dl (32.0-36.5); MEAN CORPUSCULAR VOLUME 87.6 fl (80.0-96.0); MONO # 0.3 K/mm3 (0.0-0.8); MONO % 5.5 % (0.0-5.0); NEUTROPHILS # 4.1 K/mm3 (1.8-7.7); NEUTROPHILS % 75.6 % (36.0-66.0); PLATELET COUNT, AUTOMATED 105 k/mm3 (150-450); WHITE BLOOD COUNT 5.4 K/mm3 (4.0-10.0)
[2017-02-18 06:35] LABS: ALBUMIN 2.3 GM/DL (3.2-5.2); ALBUMIN/GLOBULIN RATIO 0.64 (1.00-1.93); BILIRUBIN,TOTAL 0.6 MG/DL (0.2-1.0); CALCIUM LEVEL 9.1 MG/DL (8.8-10.2); CREATININE FOR GFR 4.28 MG/DL (0.70-1.30); GLOMERULAR FILTRATION RATE 17.9 (>49); POTASSIUM SERUM 4.2 MEQ/L (3.5-5.1); TOTAL PROTEIN 5.9 GM/DL (6.4-8.2)
[2017-02-18] MEDS: IPRATROPIUM 0.5MG/ALBUTEROL 2.5MG INH SOL UD 3ML (DUONEB)(J7620) NEB SCH ×2 (07:12→20:43)
[2017-02-18] MEDS: PANTOPRAZOLE 40MG TAB (PROTONIX) PO SCH (09:14)
[2017-02-18] MEDS: VITAMIN D 1,000 INTERNATIONAL UNITS TABLET PO SCH (09:14)
[2017-02-18] MEDS: (RENVELA) SEVELAMER **CARBONate** 800 MG TAB PO SCH ×3 (09:14→17:54)
[2017-02-18] MEDS: GABAPENTIN 300 MG CAP PO SCH (09:14)
[2017-02-18] MEDS: SODIUM CHLORIDE NASAL 0.65% SPRAY BTL (OCEAN) SCH ×2 (09:16→20:56)
--- NOTE | 2017-02-18 11:19 | DSES ---
DATE OF ADMISSION: 02/11/2017 DATE OF DISCHARGE: 02/19/2017 PRIMARY CARE PROVIDER: Dr. Torres. CONSULTANTS: Dr. Car. Dr. Heath. PROCEDURES: Flexible sigmoidoscopy demonstrating a single shallow solitary ulcer in the distal rectum with a clip placement with good hemostasis noted. COMPLICATIONS: None. ADMISSION/DISCHARGE DIAGNOSES: 1. Single solitary rectal ulceration status post clip placement appears to be hemodynamically stable. 2. Acute GI bleed/symptomatic anemia requiring blood transfusion. 3. Atrial fibrillation/atrial flutter rate controlled with anticoagulation held. 4. End-stage renal disease requiring hemodialysis. 5. Secondary hyperparathyroidism due to end-stage renal disease. 6. Peripheral vascular disease status post bilateral below knee amputation (BKA)s. 7. History of prostate cancer. 8. Hypertension. 9. Dysphasia. 10. Moderate to severe aortic stenosis. 11. Low grade temperature felt to be related to previous blood transfusions. BRIEF HOSPITAL COURSE: Mr. Fernandez is a pleasant 66-year-old male patient of [facility] presented to the emergency department with bright red blood per rectum, some symptomatic anemia. Was evaluated by flexible sigmoidoscopy and found to have a single solitary ulcerative lesion that was treated by clips by Dr. Heath. He has been doing well otherwise. His hemoglobin/hematocrit have been stable to marginal and he did receive an additional blood transfusion today prior to discharge. He has maintained his hemodialysis schedule while here and was felt to be appropriate for discharge. OBJECTIVE: Temperature is 98.4, pulse 89, respiratory rate is 20, BP 116/56, SPO2 is 97% on room air. General: The patient appears to be in no acute distress. Is alert and oriented. HEENT: Unremarkable. Lungs: Clear. Heart: Regular rhythm. Abdomen: Soft. Extremities: No bilateral below knee amputations are noted. LABORATORY DATA: White count is 5.4, hemoglobin 8.7 with hematocrit 28.3, platelets 105,000. Sodium 141, potassium 4.2, chloride 104, bicarb 30, anion gap 7, BUN is 13, creatinine is 4.28, glucose 103, total bilirubin 9.0, direct bilirubin 0.6, AST 14, ALT 16, alkaline phosphatase 104, albumin is 2.3. DISCHARGE CONDITION: Good. DISPOSITION: The patient will receive a transfusion today. Once that is finished, will repeat hemoglobin and hematocrit. As long as that remains stable , he is appropriate for discharge back to [facility]. DISCHARGE MEDICATIONS: - Cardizem 16 mg twice daily - Tylenol 650 mg every 6 hours as needed - aspirin 81 mg daily - bisacodyl 10 mg per rectum daily as needed constipation - Vitamin D 1000 units daily - digoxin 0.125 mg three times weekly - Colace 100 mg three times daily - Fleet's enema as needed daily - Procrit 4000 units three times weekly - gabapentin 300 mg daily - glucagon emergency kit as needed - Milk of magnesia 30 mL daily as needed - saline nasal spray, two sprays per nostril twice daily - Renvela 800 mg three times daily - vitamin B complex/Nephro-Keely one tablet daily DISCONTINUED MEDICATIONS: - Eliquis - diltiazem ER 300 mg which was replaced by diltiazem 60 mg twice daily DISCHARGE INSTRUCTIONS: Discharge to [facility]. Should be seen by his primary care provider within a week. Keep his regular appointments with cardiology and nephrology. He is scheduled three days weekly for hemodialysis Wednesday, Wednesday, Wednesday. Continue with renal diet. Activity as tolerated. Again Eliquis has been placed on hold due to bleeding risk. Should he develop any further problems with bright red blood per rectum, he should seek medical attention. Per Kumar's concern, if this should happen to become something more invasive than being able to clip, he may need to be considered for transfer to higher level of care. I defer to his recommendations. Discharge took approximately 35 minutes. [facility]ARE[facility]mael
[2017-02-18 17:47] LABS: MEAN CORPUSCULAR HEMOGLOBIN 27.6 pg (27.0-33.0); MEAN CORPUSCULAR HGB CONC 31.1 g/dl (32.0-36.5); MEAN CORPUSCULAR VOLUME 88.7 fl (80.0-96.0); RED CELL DISTRIBUTION WIDTH 15.8 % (11.5-14.5); WHITE BLOOD COUNT 6.1 K/mm3 (4.0-10.0)
--- NOTE | 2017-02-18 18:14 | IPN ---
DATE: 02/18/2017 SUBJECTIVE: The patient was seen and examined at the bedside today in the morning. He does not have any active complaints. The patient got hemodialysis done yesterday. He tolerated the hemodialysis procedure well. Last 24-hour events were noted. The patient continues to slowly drop the hemoglobin; otherwise he denies any active rectal bleeding. He is scheduled to have another packed red blood cell transfusion today. REVIEW OF SYSTEMS: The patient denies any fever, chills, rigors, headache, nausea, vomiting, chest pain, shortness of breath, pain in abdomen, constipation, diarrhea or any active rectal bleeding. The rest of the review of systems is negative. OBJECTIVE: VITAL SIGNS: Temperature is 98.4 degrees Fahrenheit, blood pressure is 116/56, pulse is 89, respiratory rate of 20, saturating 97% on room air. INTAKE/OUTPUT: He got hemodialysis done yesterday. Ultrafiltration was 2 liters. Weight on the bed scale is 84.6 kg. PHYSICAL EXAMINATION: GENERAL: The patient is awake, alert, oriented times three, laying in bed, in no apparent distress. HEAD AND NECK EXAM: The patient has a squint. Mucous membranes are moist. Neck is supple. There is no jugular venous distention (JVD). CARDIOVASCULAR: S1, S2, irregular heart rate. No murmur, rub or gallop. RESPIRATORY: Chest is clear to auscultation bilaterally. Bilateral equal air entry. No rales or rhonchi. ABDOMEN: Abdomen is soft. Positive bowel sounds. Nontender. No ascites. No organomegaly. EXTREMITIES: No clubbing or cyanosis. The patient has a left forearm AV fistula with positive thrill and bruit, and he has bilateral below-knee amputations. CENTRAL NERVOUS SYSTEM: Alert and oriented times three. Power is 5/5 in bilateral upper extremities. LAB REVIEW: CBC showed a WBC of 5.4, hemoglobin 8.7, which dropped from 9.1 yesterday. Platelets of 105. BMP showed sodium 141, potassium 4.2, chloride 104, bicarbonate is 30, BUN is 13, creatinine is 4.2, albumin is 2.3. CURRENT MEDICATIONS: The patient's current medications were all reviewed by me. There was no change in the medications today. He is supposed to get one unit of packed red blood cell transfusion today. ASSESSMENT: A 66-year-old male with a past medical history of end-stage renal disease, on hemodialysis, status post bilateral below-knee amputations, admitted this time because of rectal bleeding. PLAN: 1. End-stage renal disease, on hemodialysis. The patient's regular days are Wednesday, Wednesday, Wednesday. He was dialyzed yesterday. Next hemodialysis session will be tomorrow. 2. Acute blood loss anemia. The patient continues to drop hemoglobin. His hemoglobin has dropped from 9.1 to 8.7. He is going to get one unit of packed red blood cell transfusion. He will get fecal occult blood testing as well to make sure he is not having any other source of bleeding. 3. Atrial fibrillation. Currently rate controlled. Continue Cardizem 60 mg twice a day and digoxin 0.125 mg by mouth on dialysis days. Continue to hold anticoagulation at this time.
--- NOTE | 2017-02-18 18:34 | IPN ---
DATE: 02/17/2017 SUBJECTIVE: Patient was seen and examined at the bedside today in the morning during work rounds and again during hemodialysis. Patient is tolerating the hemodialysis very well. No apparent distress at this time. REVIEW OF SYSTEMS: Patient denies any fevers, chills, rigors, headache, nausea, vomiting, chest pain, shortness of breath, pain in abdomen, constipation, diarrhea, or blood in the stools. Rest of review of systems is negative. OBJECTIVE: VITAL SIGNS: Temperature is 99.3 degrees Fahrenheit, blood pressure is 114/53, pulse is 92, respiratory rate of 16, saturating 92% on room air. Intake and output: Urine output is not recorded. Weight in the bed scale is 86.4 kg. PHYSICAL EXAMINATION: GENERAL: Patient is awake, alert, oriented times three, sitting in the bed. No apparent distress. HEAD AND NECK: Patient has a squint. Mucous membranes are moist. Neck is supple. There is no jugular venous distention (JVD). CARDIOVASCULAR: S1, S2, irregular heart rate. No murmur, rub, or gallop. RESPIRATORY: Chest is clear to auscultation bilaterally. Bilateral equal air entry. No rales or rhonchi. ABDOMEN: Soft, positive bowel sounds, nontender. No ascites. No organomegaly. EXTREMITIES: No clubbing or cyanosis. Patient has a left forearm arteriovenous (AV) fistula, which is being used for dialysis, and he has bilateral below-knee amputations. CENTRAL NERVOUS SYSTEM: No focal neurological deficit. Power is 5/5 in bilateral upper extremities. LABORATORY REVIEW: CBC showed a WBC of 5.4, hemoglobin is 9.1, platelets are 414. BMP showed sodium 141, potassium 4.4, chloride 104, bicarbonate 29, BUN 28, creatinine is 6.7. CURRENT MEDICATIONS: Patient's medications were all reviewed by me. There is no change in the medications today as compared with yesterday. He has been started on Aranesp 200 mcg intravenous (IV) with hemodialysis. ASSESSMENT: A 66-year-old male with past medical history of end-stage renal disease, on hemodialysis, admitted this time because of lower gastrointestinal (GI) bleed. PLAN: 1. End-stage renal disease, on hemodialysis. Today is patient's regular day of dialysis. He is being dialyzed according to his regular schedule. We will try to do an ultrafiltration (UF) of 2 liters as tolerated by his blood pressure. 2. Acute blood loss anemia. Patient's hemoglobin is improving now. He will get a dose of Aranesp 200 mcg with hemodialysis today. 3. Atrial fibrillation. It is rate controlled at this time. He is not a candidate for anticoagulation because of recurrent bleeding. Continue current dose of Cardizem and digoxin.
[2017-02-18 20:45] VITALS: BP 132/61
[2017-02-18] MEDS: NEPHRO-VIT TAB (NEPHROCAPS) PO SCH (20:54)
[2017-02-19 05:56] LABS: MEAN CORPUSCULAR HEMOGLOBIN 28.2 pg (27.0-33.0); MEAN CORPUSCULAR HGB CONC 31.7 g/dl (32.0-36.5); MEAN CORPUSCULAR VOLUME 89.1 fl (80.0-96.0); RED CELL DISTRIBUTION WIDTH 15.8 % (11.5-14.5); WHITE BLOOD COUNT 5.9 K/mm3 (4.0-10.0)
[2017-02-19 06:05] VITALS: BP 127/60
[2017-02-19] MEDS: IPRATROPIUM 0.5MG/ALBUTEROL 2.5MG INH SOL UD 3ML (DUONEB)(J7620) NEB SCH (07:31)
[2017-02-19 09:05] VITALS: BP 127/60
[2017-02-19] MEDS: GABAPENTIN 300 MG CAP PO SCH (09:05)
[2017-02-19] MEDS: VITAMIN D 1,000 INTERNATIONAL UNITS TABLET PO SCH (09:05)
[2017-02-19] MEDS: (RENVELA) SEVELAMER **CARBONate** 800 MG TAB PO SCH (09:05)
[2017-02-19] MEDS: PANTOPRAZOLE 40MG TAB (PROTONIX) PO SCH (09:05)
[2017-02-19] MEDS: SODIUM CHLORIDE NASAL 0.65% SPRAY BTL (OCEAN) SCH (09:06)
--- NOTE | 2017-02-19 14:08 | IPN ---
DATE: 02/19/2017 SUBJECTIVE: The patient was seen and examined at the bedside today in the morning. Last 24-hour events were noted. The patient got a unit of packed RBC transfusion done. Fecal occult blood testing was done, which came out to be positive. The patient is otherwise hemodynamically stable. Today is the patient's regular day of dialysis. REVIEW OF SYSTEMS: The patient denies any fever, chills, rigors, headache, nausea, vomiting, chest pain, shortness of breath, pain in abdomen, constipation, or diarrhea. The rest of the review of systems is negative. OBJECTIVE: VITAL SIGNS: Temperature is 98.2 degrees Fahrenheit, blood pressure is 127/60, pulse is 75, respiratory rate of 18, saturating 95% on room air. INTAKE/OUTPUT: Urine output is not recorded. Bed scale weight is not available today. PHYSICAL EXAMINATION: GENERAL: The patient is awake, alert, oriented times three, laying in bed, in no apparent distress. HEAD AND NECK EXAM: The patient has a squint. Mucous membranes are moist. Neck is supple. There is no jugular venous distention (JVD). CARDIOVASCULAR: S1, S2, irregular heart rate. No murmur, rub or gallop. RESPIRATORY: Chest is clear to auscultation bilaterally. Bilateral equal air entry. No rales or rhonchi. ABDOMEN: Abdomen is soft. Positive bowel sounds. Nontender. No ascites. No organomegaly. EXTREMITIES: No clubbing or cyanosis. He has a left forearm AV fistula with positive thrill and bruit. The patient has bilateral below-knee amputations. CENTRAL NERVOUS SYSTEM: No focal neurological deficits. Power is 5/5 in bilateral upper extremities. LAB REVIEW: CBC showed a WBC of 5.9, hemoglobin is 9.7, platelets are 116. BMP showed sodium 141, potassium 4.2, and this BMP is from yesterday. CURRENT MEDICATIONS: The patient's medications were all reviewed by me. There was no change in the medications today. ASSESSMENT: A 66-year-old male with a past medical history of end-stage renal disease, on hemodialysis admitted this time because of lower gastrointestinal bleeding. PLAN: 1. End-stage renal disease. The patient's regular days are Wednesday, Wednesday, Wednesday. As patient is being discharged today, I have talked with the dialysis center. He will be dialyzed in the afternoon today as an outpatient according to his regular schedule. 2. Acute blood loss anemia. The patient received another unit of packed red blood cell transfusion yesterday. His fecal occult blood test is positive; however, because of his recent rectal bleeding that was clipped, it is possible that he would have a little bit of oozing from there. Continue to monitor CBC for now. No intervention is needed at this time as per surgical service. 3. Atrial fibrillation. It is rate controlled at this time. Not a candidate for anticoagulation because of gastrointestinal bleeding. Continue current dose of Cardizem and digoxin. DISCHARGE PLANNING: It is okay to discharge the patient from nephrology standpoint. He will be dialyzed as an outpatient from his senior care. Plan of care was discussed with the hospitalist, Dr. Manuel Cade.
--- NOTE | 2017-02-19 15:40 | IPN ---
DATE: 02/19/2017 SUBJECTIVE: A 66-year-old gentleman is seen resting comfortably, no overnight issues or chest pain. OBJECTIVE: VITAL SIGNS: Temperature 98.2, pulse 75, respiratory rate 18, blood pressure 127/60, SPO2 is 95% on room air. GENERAL: The patient appears to be in no acute distress. He is alert, pleasant. HEENT: Unremarkable. EXTREMITIES: Bilateral lower extremity below-knee amputations (BKA). LABORATORY DATA: White count is 6.1, hemoglobin 9.9, platelets 114,000. Sodium 141, potassium 4.4, chloride 104, bicarb 29, anion gap 8, BUN is 28, creatinine is 6.74, glucose is 103. ASSESSMENT/PLAN: 1. Single solitary rectal ulceration status post clip placement. No gross hematochezia or melena. He did receive a blood transfusion. Earlier this morning his repeat hemoglobin is stable as outlined above. 2. Defibrillation/atrial flutter, stable. Anticoagulation therapy on hold. Continue on diltiazem. 3. End-stage renal disease requiring hemodialysis. Anticipate discharge early tomorrow morning and he has an afternoon appointment for dialysis tomorrow afternoon. 4. Secondary hyperparathyroidism with end-stage renal disease, stable. 5. Peripheral vascular disease status post bilateral [id number] amputations. Continue gabapentin for chronic pain. 6. Prostate cancer status post radiation. Prior history of radiation proctitis, no current issues. 7. Hypertension stable. 8. Dysphagia. Continue with mechanical soft diet and nectar thickened liquids. Continue renal diet. 9. Vzrhmnes-ue-fvqlic aortic stenosis, likely not a good candidate for surgery. Will defer to cardiology and primary care. 10. Low grade temperature previously, most likely related to blood transfusions. DISPOSITION: He continues to do well. It was late in the day by the time we were able to complete the blood transfusion and were unable to arrange for transportation this evening. We will plan on discharging him tomorrow back to the half-way with outpatient hemodialysis in the afternoon.
== END 2017-02-19 11:01 | DRG 393 ==
LOC: M ED 18:04 → M ED INP 19:20 → M ICU 20:40 → M MSPAV 02-14 14:45
PROVIDERS: ADMIT Internal Medicine Nephrology; ATTEND Hospitalist
PROC: 30253N1 (ICD-10-PCS; 2017-02-11)
PROC: 5A1D60Z (ICD-10-PCS; 2017-02-12)
PROC: 0W3P8ZZ Control Bleeding in Gastrointestinal Tract, Via Natural or Artificial Opening Endoscopic (ICD-10-PCS; principal; 2017-02-12 09:40)
DX: K62.6 Ulcer of anus and rectum (principal); N18.6 End stage renal disease; I50.32 Chronic diastolic (congestive) heart failure; I13.2 Hypertensive heart and chronic kidney disease with heart failure and with stage 5 chronic kidney disease, or end stage renal disease; I48.92 Unspecified atrial flutter; D62 Acute posthemorrhagic anemia; K62.5 Hemorrhage of anus and rectum; N25.81 Secondary hyperparathyroidism of renal origin; I73.9 Peripheral vascular disease, unspecified; I27.2 Other secondary pulmonary hypertension; K57.30 Diverticulosis of large intestine without perforation or abscess without bleeding; K62.7 Radiation proctitis; R13.10 Dysphagia, unspecified; D63.1 Anemia in chronic kidney disease; I27.81 Cor pulmonale (chronic); I08.0 Rheumatic disorders of both mitral and aortic valves; I48.91 Unspecified atrial fibrillation; Z89.511 Acquired absence of right leg below knee; Z89.512 Acquired absence of left leg below knee; Z99.2 Dependence on renal dialysis; Z79.891 Long term (current) use of opiate analgesic; Z79.899 Other long term (current) drug therapy; Z88.0 Allergy status to penicillin; Z88.8 Allergy status to other drugs, medicaments and biological substances; Z79.01 Long term (current) use of anticoagulants

== ENCOUNTER 2017-02-26 12:57 | Inpatient (IN) | payer MEDICARE, MEDICAID ==
[~2017-02-26 12:57] MED LIST changes: +ASPI1TAB PO; +DILT300C PO; +DILT60TA PO; +MILKSUS5 PO; +PROC1INJ SC
[2017-02-26] MEDS ORDERED: CARD240T2 PO (13:22)
[2017-02-26] MEDS ORDERED: VITA100041 PO (13:24)
[2017-02-26 13:44] LABS: ADD MORPHOLOGY? YES; BASO % 0.1 % (0.0-1.0); EOS # 0.2 K/mm3 (0.0-0.50); EOS % 3.8 % (0.0-3.0); LARGE UNSTAINED CELL # 0.1 K/mm3 (0.0-0.4); LARGE UNSTAINED CELL % 0.8 % (0.0-4.0); LYMPH # 0.9 K/mm3 (1.5-4.5); LYMPH % 14.7 % (24.0-44.0); MEAN CORPUSCULAR HEMOGLOBIN 26.4 pg (27.0-33.0); MEAN CORPUSCULAR HGB CONC 29.7 g/dl (32.0-36.5); MEAN CORPUSCULAR VOLUME 88.8 fl (80.0-96.0); MONO # 0.3 K/mm3 (0.0-0.8); MONO % 4.3 % (0.0-5.0); NEUTROPHILS # 4.5 K/mm3 (1.8-7.7); NEUTROPHILS % 76.2 % (36.0-66.0); PLATELET COUNT, AUTOMATED 143 k/mm3 (150-450); RED CELL DISTRIBUTION WIDTH 16.3 % (11.5-14.5); WHITE BLOOD COUNT 5.9 K/mm3 (4.0-10.0)
[2017-02-26 13:48] LABS: INR 1.04
[2017-02-26] MEDS ORDERED: DILT300C PO (14:04)
[2017-02-26] MEDS ORDERED: NEPRLIQ PO (14:05)
[2017-02-26 14:08] LABS: ALBUMIN 2.6 GM/DL (3.2-5.2); ALBUMIN/GLOBULIN RATIO 0.62 (1.00-1.93); BILIRUBIN,DIRECT 0.2 MG/DL (0.0-0.2); BILIRUBIN,TOTAL 0.4 MG/DL (0.2-1.0); CALCIUM LEVEL 8.6 MG/DL (8.8-10.2); CREATININE FOR GFR 3.11 MG/DL (0.70-1.30); DIGOXIN LEVEL 0.8 NG/ML (0.5-2.0); GLOMERULAR FILTRATION RATE 25.9 (>49); POTASSIUM SERUM 4.1 MEQ/L (3.5-5.1); TOTAL PROTEIN 6.8 GM/DL (6.4-8.2)
[2017-02-26 14:09] LABS: ANISOCYTOSIS 1+; HYPOCHROMASIA 2+
[2017-02-26] MEDS ORDERED: DOCUSATE SODIUM 100 MG CAP PO PRN (15:30)
[2017-02-26] MEDS ORDERED: ACETAMINOPHEN TAB 650MG DOSE (2X325MG) PO PRN (15:30)
[2017-02-26] MEDS ORDERED: ONDANSETRON 4MG/2ML VIAL (J2405) IV PRN (15:30)
[2017-02-26 16:30] VITALS: BP 136/76
[2017-02-26] MEDS: SODIUM CHLORIDE NASAL 0.65% SPRAY BTL (OCEAN) SCH (18:45)
[2017-02-26 20:00] VITALS: BP 101/52
--- NOTE | 2017-02-26 20:37 | ECGEPIP ---
Stationary ECG Study [facility] - ED Test Date: 2017-02-26 Pat Name: CATHI SEBASTIAN Department: Room: - Gender: M Pilot: rn : [id number] Requested By: Carmita Gallardo Order Number: [id number] Reading MD: Carmita Gallardo Measurements Intervals [place] Rate: 77 P: AR: 0 QRS: -47 QRSD: 134 T: 43 QT: 384 QTc: 435 Interpretive Statements ATRIAL FIBRILLATION MARKED LEFT AXIS DEVIATION INTRAVENTRICULAR CONDUCTION DELAY Electronically Signed On 02-26-2017 20:36:40 EDT by Carmita Gallardo
[2017-02-27] VITALS (7 sets, daily range): BP systolic 94–124; BP diastolic 51–60
[2017-02-27] MEDS: SODIUM CHLORIDE NASAL 0.65% SPRAY BTL (OCEAN) SCH ×2 (04:49→17:27)
[2017-02-27] MEDS: GABAPENTIN 300 MG CAP PO SCH (04:50)
[2017-02-27] MEDS: VITAMIN D 1,000 INTERNATIONAL UNITS TABLET PO SCH (04:50)
[2017-02-27 05:36] LABS: MEAN CORPUSCULAR HEMOGLOBIN 26.8 pg (27.0-33.0); MEAN CORPUSCULAR HGB CONC 29.8 g/dl (32.0-36.5); RED CELL DISTRIBUTION WIDTH 16.3 % (11.5-14.5); WHITE BLOOD COUNT 6.2 K/mm3 (4.0-10.0)
[2017-02-27 05:37] LABS: CALCIUM LEVEL 8.7 MG/DL (8.8-10.2); CREATININE FOR GFR 4.48 MG/DL (0.70-1.30); MAGNESIUM LEVEL 2.2 MG/DL (1.8-2.4); POTASSIUM SERUM 4.6 MEQ/L (3.5-5.1)
--- NOTE | 2017-02-27 07:53 | IPNPDOC ---
Subjective Date Seen The patient was seen on 02/27/17. Subjective Chief Complaint/HPI The patient is a 66-year-old male admitted with a reason for visit of GIB. Events since last encounter patient was sent from [facility] for rectal bleeding. Patient complained that he he was having diarrhea before that. Patient says was not getting any stool softeners or enema or suppository. NO abdominal pain , no nausea or vomiting . No fever or chills, no chest pain or SOB. Objective Physical Examination General Exam: Positive: Alert, Cooperative, No Acute Distress Eye Exam: Positive: Conjunctiva & lids normal, EOMI, PERRLA, Negative: Sclera icteric ENT Exam: Positive: Atraumatic, Mucous membr. moist/pink, Pharynx Normal Neck Exam: Positive: Supple, Negative: JVD, thyromegaly Chest Exam: Positive: Clear to auscultation Heart Exam: Positive: Irregular Rhythm, Murmurs, Normal S1, Normal S2 Abdomen Exam: Positive: Normal bowel sounds, Soft Extremity Exam: Positive: Other (Has bilateral BKA) Skin Exam: Positive: Nl turgor and temperature, Negative: Breakdown, Rash Assessment /Plan Problems (1) GIB (gastrointestinal bleeding) Status: Acute Problem Text: Had sigmoidoscopy on 02/12/17 found to have rectal ulcer which was clipped. now hh stable will recheck , patient says the bleeding has stopped. Dr Robin following. (2) End stage renal disease on dialysis Status: Chronic Problem Text: MWF (3) A-fib Status: Chronic Problem Text: rate is controlled. NOt on anticoagulation due to recurrent GIBs. (4) PAD (peripheral artery disease) Status: Chronic (5) Status post below knee amputation of left lower extremity Status: Chronic (6) Diastolic CHF, acute Status: Chronic (7) Right heart failure due to pulmonary hypertension Status: Chronic (8) History of prostate cancer Status: Chronic Problem Text: with h/o of radiation may also have underlying radiation proctitis. (9) Pulmonary hypertension Status: Chronic Plan/VTE VTE Prophylaxis Ordered?: Yes VS, I&O, 24H, Fishbone Vital Signs/I&O Vital Signs Date Time Temp Pulse Resp B/P Pulse Ox O2 Delivery O2 Flow Rate FiO2 02/27/17 04:50 104 109/59 02/27/17 04:00 99.2 20 100 Room Air I&O- Last 24 Hours up to 6 AM 02/27/17 06:00 Intake Total 0 ml Balance 0 ml Laboratory Data 24H LABS Laboratory Tests 2 02/26/17 13:27: Aspartate Amino Transf (AST/SGOT) 53H, Alanine Aminotransferase (ALT/SGPT) 61, Alkaline Phosphatase 182H, Total Bilirubin 0.4, Direct Bilirubin 0.2, Albumin 2.6L, Albumin/Globulin Ratio 0.62L, Anion Gap 5L, Anisocytosis 1+, White Blood Count 5.9, Red Blood Count 3.84L, Hemoglobin 10.1L, Hematocrit 34.1L, Mean Corpuscular Volume 88.8, Mean Corpuscular Hemoglobin 26.4L, Mean Corpuscular Hemoglobin Concent 29.7L, Red Cell Distribution Width 16.3H, Platelet Count 143L , Neutrophils (%) (Auto) 76.2H, Lymphocytes (%) (Auto) 14.7L, Monocytes (%) ( Auto) 4.3, Eosinophils (%) (Auto) 3.8H, Basophils (%) (Auto) 0.1, Neutrophils # (Auto) 4.5, Lymphocytes # (Auto) 0.9L, Monocytes # (Auto) 0.3, Eosinophils # ( Auto) 0.2, Basophils # (Auto) 0.0, Calcium Level 8.6L, Digoxin Level 0.8, Glomerular Filtration Rate 25.9L, Hypochromasia 2+, Large Unclassified Cells # 0.1, Large Unclassified Cells % 0.8, Lipase 288, Platelet Estimate NORMAL, Prothromb Time International Ratio 1.04, Prothrombin Time 13.7, Total Protein 6.8 02/27/17 04:43: Anion Gap 5L, Calcium Level 8.7L, Glomerular Filtration Rate 17.0L, Blood Urea Nitrogen 16, Creatinine 4.48H, Sodium Level 143, Potassium Level 4.6, Chloride Level 106, Carbon Dioxide Level 32, Magnesium Level 2.2 CBC/BMP Laboratory Tests 02/26/17 13:27 Red Blood Count 3.84 L, Mean Corpuscular Volume 88.8, Mean Corpuscular Hemoglobin 26.4 L, Mean Corpuscular Hemoglobin Concent 29.7 L, Red Cell Distribution Width 16.3 H, Neutrophils (%) (Auto) 76.2 H, Lymphocytes (%) (Auto ) 14.7 L, Monocytes (%) (Auto) 4.3, Eosinophils (%) (Auto) 3.8 H, Basophils (%) (Auto) 0.1, Neutrophils # (Auto) 4.5, Lymphocytes # (Auto) 0.9 L, Monocytes # ( Auto) 0.3, Eosinophils # (Auto) 0.2, Basophils # (Auto) 0.0 02/27/17 04:43 Red Blood Count 3.46 L, Mean Corpuscular Volume 90.0, Mean Corpuscular Hemoglobin 26.8 L, Mean Corpuscular Hemoglobin Concent 29.8 L, Red Cell Distribution Width 16.3 H, Calcium Level 8.7 L PENNY BERGMAN MD Feb 27, 2017 07:53
--- NOTE | 2017-02-27 08:50 | HPE ---
DATE OF ADMISSION: 02/26/2017 PRIMARY CARE PROVIDER: Dr. Torres. CHIEF COMPLAINT: Maroon-colored blood per rectum. HISTORY OF PRESENT ILLNESS: The patient is a 66-year-old man who has had recurrent hospitalizations for recurrent gastrointestinal (GI) bleeding. His last hospitalization was from 02/11/2017, to 02/19/2017, and he was discharged only a week ago. I did see the patient at that time during that stay. He had been discharged from [facility], went to [facility] for only a few hours where he had been admitted at [facility] for GI bleed, but he had recurrent bleeding at [facility] and was admitted to [facility]. At that time, he did have a scope completed by Dr. Heath which found a single ulcer. Dr. Heath was able to clip this ulcer; however, he did verbally express to me that he was unsure about the ability of the clips to maintain in place and control the bleeding. He actually did speak with Dr. Alas at that time, with the suggestion that if the patient did have further rebleeding, he would benefit from more definitive procedure to cease his recurrent bleeding. Apparently yesterday evening while at [facility], the patient began having maroon-colored stools. He went for his regular hemodialysis today and had bleeding continued this morning, and as such, he was transferred to the [facility] Emergency Room for further evaluation. The patient at the present time denies shortness of breath. Lightheadedness, dizziness, chest pain, fevers, chills, nausea, vomiting, or any diarrhea. He tells me that he has had continued maroon-colored stools but does not feel unwell at this time. PAST MEDICAL HISTORY: 1. Atrial fibrillation, atrial flutter, not on anticoagulation secondary to recurrent GI bleeding. 2. Recurrent GI bleeding as outlined above. 3. End-stage renal disease on hemodialysis Wednesday, Wednesday, Wednesday. 4. Secondary hyperparathyroidism. 5. Peripheral vascular disease with history of gangrene and bilateral below-knee amputations (BKA). 6. 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 7. Diastolic congestive heart failure. 8. Hypertension. 9. Pulmonary hypertension with cor pulmonale. 10. Dysphagia chronically mechanical soft, nectar-thickened liquid diet. 11. Moderate to severe aortic stenosis. 12. Internal hemorrhoids. 13. Colonic polyps. ALLERGIES: 1. 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 2. PENICILLINS - rash. SOCIAL HISTORY: He is a former smoker. He is a resident of [facility]. His frequently accompanies him to hospitalizations. He denies alcohol or illicit drug use. His brother has also come to visit him in the emergency room today. SURGICAL HISTORY: 1. Bilateral BKA. 2. Arteriovenous (AV) fistula placements. 3. Cataract surgery. REVIEW OF SYSTEMS: Negative other than as in history of present illness (HPI). FAMILY HISTORY: Noncontributory. HOME MEDICATIONS: - diltiazem extended release 300 mg every morning - Nepro liquid one daily - acetaminophen 650 every four hours as needed for pain - vitamin D3 1000 units every morning - digoxin 0.125 mg three times a week - docusate 100 mg three times a day as needed for constipation - gabapentin 300 mg every morning - saline nasal spray two sprays to the nares twice a day PHYSICAL EXAMINATION: VITAL SIGNS: Temperature 98.4, pulse 84, respiratory rate 18, blood pressure 107/54, oxygen saturation 99% on room air. GENERAL: He is a frail, elderly male sitting up in a stretcher watching television. He does not appear to be in any acute distress. He actually looks better than when I have seen him on previous hospitalizations on exam. He has put on weight. In good spirits. HEENT: Chronic asymmetry of the face. Moist mucous membranes. No appreciable elevation of central venous pressure (CVP). Cranial nerves II through XII are grossly intact. CARDIOVASCULAR: S1, S2 regular. RESPIRATORY: Clear. ABDOMEN: Benign. EXTREMITIES: He has a fistula in his left distal upper extremity. Status post BKA bilaterally. LABORATORY DATA: WBC 5.9, hemoglobin 10.1, hematocrit 34.1, platelet count is 143. Chemistry panel: Sodium 141, potassium 4.1, chloride 105, bicarbonate 31, BUN 12, creatinine 3.1, AST slightly elevated at 53. Lipase within normal limits. INR is 1.0. Digoxin level is 0.8. IMAGING: No new imaging. ASSESSMENT AND PLAN: This is a 66-year-old man with recurrent gastrointestinal (GI) bleeding. 1. Recurrent gastrointestinal bleeding. The patient is hemodynamically stable at this time. His hemoglobin and hematocrit are stable, is better than actually it has been in the past. We will type and screen him. Monitor his hemoglobin and hematocrit closely. I do not see any emergent need to transfuse him at this time. However, given his recurrent history of bleeding, I will contact Dr. Madrigal of general surgery. We do not have gastroenterological (GI) coverage at this time, and the last time I spoke with Dr. Heath, he had expressed concern that if the patient had recurrent bleeding or loss of his clip, he may need more definitive intervention. The patient is not on any anticoagulation for is atrial fibrillation/atrial flutter secondary to his recurrent bleeding. The patient also has a history of colonic polyps, internal hemorrhoids, possible radiation proctitis, diverticulosis, all placing him as susceptible for GI bleeding. 2. End-stage renal disease on hemodialysis Wednesday, Wednesday, Wednesday. I will place a consult to Dr. Jean-Baptiste, who has seen the patient in the past. He does have is regular hemodialysis schedule today. He is not due again until Wednesday. 3. Atrial fibrillation. The patient is not on anticoagulation as outlined above. He is on digoxin three times a week and diltiazem which we are continuing. 4. Chronic pain. Continue with gabapentin. 5. Vitamin D deficiency. Continue with supplementation. 6. Deep venous thrombosis (DVT) prophylaxis. Sequentials, thromboembolism deterrent stockings (TEDs). No pharmacological agents. 7. Diastolic congestive heart failure. Volume status controlled by hemodialysis. 8. Dysphagia. He is nothing by mouth, but when he is able to eat, would recommend mechanical soft, nectar-thickened liquids diet. 9. Moderate aortic stenosis. Likely given his multiple comorbidities, he is not a candidate for repair, but will defer to his outpatient pneumatic tool operator. DISPOSITION: The patient is admitted to the progressive care unit (PCU) to Dr. Vasquez's service, who will continue the following the patient tomorrow at 7 a.m.
[2017-02-27] MEDS ORDERED: GOLYTELY SOLN 4000 ML BTL PO ONE (20:00)
[2017-02-28] VITALS (7 sets, daily range): BP systolic 103–120; BP diastolic 48–59
[2017-02-28] MEDS: GABAPENTIN 300 MG CAP PO SCH (05:37)
[2017-02-28] MEDS: VITAMIN D 1,000 INTERNATIONAL UNITS TABLET PO SCH (05:38)
[2017-02-28] MEDS: SODIUM CHLORIDE NASAL 0.65% SPRAY BTL (OCEAN) SCH ×2 (05:38→15:17)
[2017-02-28 06:36] LABS: MEAN CORPUSCULAR HEMOGLOBIN 29.9 pg (27.0-33.0); MEAN CORPUSCULAR HGB CONC 33.3 g/dl (32.0-36.5); MEAN CORPUSCULAR VOLUME 89.8 fl (80.0-96.0); RED CELL DISTRIBUTION WIDTH 16.2 % (11.5-14.5); WHITE BLOOD COUNT 6.8 K/mm3 (4.0-10.0)
[2017-02-28 07:00] LABS: CALCIUM LEVEL 8.6 MG/DL (8.8-10.2); CREATININE FOR GFR 5.82 MG/DL (0.70-1.30); GLOMERULAR FILTRATION RATE 12.6 (>49); POTASSIUM SERUM 4.7 MEQ/L (3.5-5.1)
[2017-02-28] MEDS ORDERED: D5W/0.45% SODIUM CHLORIDE 1,000 ML IV SCH (07:30)
[2017-02-28] MEDS ORDERED: PROPOFOL 200 MG/20 ML VIAL As Ordered ONE (07:38)
[2017-02-28] MEDS ORDERED: KETAMINE HCL 200 MG/20 ML VIAL As Ordered ONE (08:12)
[2017-02-28] MEDS ORDERED: MIDAZOLAM INJ 2 MG/2 ML VIAL (J2250) As Ordered ONE (08:12)
--- NOTE | 2017-02-28 09:15 | ROOR ---
Patient Name: Nicho Fernandez Procedure Date: 02/28/2017 8:31 AM Date of : 1950 Age: 66 Room: Main OR Gender: Male Note Status: Finalized Procedure: Colonoscopy Indications: Rectal bleeding Providers: Colin Madrigal MD Referring MD: Shanel Vasquez MD Requesting Provider: Medicines: Monitored Anesthesia Care Complications: No immediate complications. Procedure: Pre-Anesthesia Assessment: - Prior to the procedure, a History and Physical was performed, and patient medications and allergies were reviewed. The risks and benefits of the procedure and the sedation options and risks were discussed with the patient's spouse. All questions were answered and informed consent was obtained. Patient identification and proposed procedure were verified by the physician, the nurse and the anesthesiologist in the endoscopy suite. Mental Status Examination: alert but confused. Airway Examination: normal oropharyngeal airway and neck mobility. Respiratory Examination: clear to auscultation. CV Examination: irregularly irregular rate and rhythm. Prophylactic Antibiotics: The patient does not require prophylactic antibiotics. Prior Anticoagulants: The patient has taken no previous anticoagulant or antiplatelet agents. ASA Grade Assessment: III - A patient with severe systemic disease. After reviewing the risks and benefits, the patient was deemed in satisfactory condition to undergo the procedure. The anesthesia plan was to use monitored anesthesia care (MAC). Immediately prior to administration of medications, the patient was re-assessed for adequacy to receive sedatives. The heart rate, respiratory rate, oxygen saturations, blood pressure, adequacy of pulmonary ventilation, and response to care were monitored throughout the procedure. The physical status of the patient was re-assessed after the procedure. The Colonoscope was introduced through the anus and advanced to the sigmoid colon for evaluation. This was the intended extent. The Colonoscope was introduced through the anus and advanced to the sigmoid colon for evaluation. This was the intended extent. The colonoscopy was performed without difficulty. The patient tolerated the procedure well. The quality of the bowel preparation was good. Findings: The perianal exam findings include anal fissure. A diffuse area of moderately congested and ulcerated mucosa was found in the distal rectum. Fulguration to stop the bleeding by argon plasma at 0.8 liters/minute and 20 dawkins was successful. Estimated blood loss: none. Patient with bleeding rectal ulcer found 2 weeks ago. Repeat exam shows healing base of ulcer but circumferentially congested, friable tissue surrounding it and chronic changes to surrounding mucosa at the area. Suspect radiation proctitis. Impression: - Anal fissure found on perianal exam. - Congested and ulcerated mucosa in the distal rectum. Treated with argon plasma coagulation (APC). - No specimens collected. Recommendation: - Admit the patient to hospital [facility] for ongoing care. Attending Participation: I personally performed the entire procedure. Colin Madrigal MD Colin Madrigal MD 02/28/2017 9:15:02 AM This report has been signed electronically. Number of Addenda: 0 Note Initiated On: 02/28/2017 8:31 AM Estimated Blood Loss: Estimated blood loss: none.
[2017-02-28] MEDS ORDERED: LR 1,000 ML IV SCH (09:30)
--- NOTE | 2017-02-28 11:00 | IPNPDOC ---
Subjective Date Seen The patient was seen on 02/28/17. Subjective Chief Complaint/HPI The patient is a 66-year-old male admitted with a reason for visit of GIB. Events since last encounter Has been having rectal bleed all day yesterday till early this am. underwent sigmoidoscopy this am , has the healing rectal ulcer with surrounding bleeding mucosa which was cauterized. will continue to monitor for further bleeding and monitor hh., no other complains Objective Physical Examination General Exam: Positive: Alert, Cooperative, No Acute Distress Eye Exam: Positive: Conjunctiva & lids normal, EOMI, PERRLA, Negative: Sclera icteric ENT Exam: Positive: Atraumatic, Mucous membr. moist/pink, Pharynx Normal Neck Exam: Positive: Supple, Negative: JVD, thyromegaly Chest Exam: Positive: Clear to auscultation Heart Exam: Positive: Irregular Rhythm, Murmurs, Normal S1, Normal S2 Abdomen Exam: Positive: Normal bowel sounds, Soft Extremity Exam: Positive: Other (Has bilateral BKA) Skin Exam: Positive: Nl turgor and temperature, Negative: Breakdown, Rash Assessment /Plan Problems (1) GIB (gastrointestinal bleeding) Status: Acute Problem Text: Had sigmoidoscopy on 02/12/17 found to have rectal ulcer which was clipped. Had sigmoidoscopy again on 02/28/17 will continue to monitor hh Dr Robin following. (2) End stage renal disease on dialysis Status: Chronic Problem Text: MWF (3) A-fib Status: Chronic Problem Text: rate is controlled. NOt on anticoagulation due to recurrent GIBs. (4) PAD (peripheral artery disease) Status: Chronic (5) Status post below knee amputation of left lower extremity Status: Chronic (6) Diastolic CHF, acute Status: Chronic (7) Right heart failure due to pulmonary hypertension Status: Chronic (8) History of prostate cancer Status: Chronic Problem Text: with h/o of radiation may also have underlying radiation proctitis. (9) Pulmonary hypertension Status: Chronic Plan/VTE VTE Prophylaxis Ordered?: Yes VS, I&O, 24H, Fishbone Vital Signs/I&O Vital Signs Date Time Temp Pulse Resp B/P Pulse Ox O2 Delivery O2 Flow Rate FiO2 02/28/17 09:32 93 18 100/54 100 Nasal Cannula 2 02/28/17 09:27 97.2 I&O- Last 24 Hours up to 6 AM 02/28/17 06:00 Intake Total 360 ml Balance 360 ml Laboratory Data 24H LABS Laboratory Tests 2 02/28/17 04:37: Anion Gap 7L, Blood Urea Nitrogen 23H, Creatinine 5.82H, Sodium Level 143, Potassium Level 4.7, Chloride Level 107, Carbon Dioxide Level 29, Calcium Level 8.6L, Glomerular Filtration Rate 12.6L CBC/BMP Laboratory Tests 02/27/17 16:04 02/27/17 23:52 02/28/17 04:37 Calcium Level 8.6 L, Red Blood Count 2.90 L, Mean Corpuscular Volume 89.8, Mean Corpuscular Hemoglobin 29.9, Mean Corpuscular Hemoglobin Concent 33.3, Red Cell Distribution Width 16.2 H PENNY BERGMAN MD Feb 28, 2017 11:00
--- NOTE | 2017-02-28 12:13 | CR ---
DATE OF CONSULTATION: 02/27/2017 REQUESTING PHYSICIAN: Shanel Vasquez MD REASON FOR CONSULTATION: To assist in the management of end stage renal disease. HISTORY OF PRESENT ILLNESS: Mr. Fernandez is a 66-year-old gentleman with a known history of diabetes, hypertension, peripheral vascular disease, recurrent gastrointestinal bleed and history of anemia. He recently had rectal bleeding and was found to have a bleeding vessel in the rectal ulcer on sigmoidoscopy, which required clipping at that time. He was admitted again with maroon-colored blood per rectum after dialysis yesterday. He did complete his dialysis treatment prior to admission. PAST MEDICAL AND SURGICAL HISTORY: Significant for: 1. History of chronic atrial fibrillation, currently not on any anticoagulation. 2. History of recurrent gastrointestinal bleed. 3. End-stage renal disease on maintenance hemodialysis Wednesday, Wednesday, and Wednesday schedule. 4. History of peripheral vascular disease, status post bilateral below the knee amputations. 5. History of diabetes. 6. Secondary hyperparathyroidism. 7. Prior history of prostate cancer, status post radiation therapy. 8. History of diastolic congestive heart failure (CHF). 9. History of pulmonary hypertension. 10. History of moderate to severe aortic stenosis. 11. History of internal hemorrhoids. 12. History of chronic malnutrition. ALLERGIES: He is allergic to penicillin. He also has a history of heparin induced thrombocytopenia (HIT) antibodies. PERSONAL AND SOCIAL HISTORY: The patient is a former smoker. He is a resident of [facility] currently. He denies any alcohol or drug use. FAMILY HISTORY: Negative for end stage renal disease. PAST SURGICAL HISTORY: Significant for AV fistula creation, cataract surgery, bilateral below the knee amputations. MEDICATIONS: His home medications include: - Diltiazem ER 300 mg daily - Nepro one can daily - Tylenol as needed for pain - vitamin D 1000 units daily - digoxin 0.125 mg three times a week - Colace 100 mg twice a day - gabapentin 300 mg daily - saline nasal spray as needed He also receives Mircera during hemodialysis for anemia. REVIEW OF SYSTEMS: The patient denies any fever or chills. Ears, nose and throat are unremarkable. Cardiovascular system is negative for dyspnea or chest. Respiratory system is negative for cough or hemoptysis. GI system is as per history of present illness. The patient denies any abdominal pain, nausea, or vomiting. system is unremarkable. There is no history of dysuria, hematuria or kidney stones. Musculoskeletal system is significant for bilateral below the knee amputations. Endocrine system is significant for diabetes and secondary hyperparathyroidism. Hematological system is significant for anemia of blood loss. Psychosocial system is negative for depression or anxiety. Neurological system is negative for seizures. PHYSICAL EXAMINATION: VITAL SIGNS: Temperature 98.4 degrees Fahrenheit, heart rate is 72 per minute and respiratory rate is 18 per minute. Blood pressure is 94/50 mmHg and oxygen saturation 98% on room air. He is edentulous. Head is atraumatic. Ears, nose and throat are unremarkable. Neck is supple and without jugular venous distention (JVD) or thyroid enlargement. Heart sounds are irregular in rhythm. Lungs with a few basilar crepitations on the left base. Abdomen is soft and nontender. Bowel sounds are normal. Extremities have no cyanosis or clubbing. He has bilateral below the knee amputations. Left arm AV fistula is patent. LABORATORY DATA: On admission, his hemoglobin was 10.1 and hematocrit 34.1, later his peak hemoglobin was 9.3 and hematocrit 31. Today his hemoglobin is 9.0 and hematocrit 30.6. Sodium 143 and potassium 4.6. BUN 16 and creatinine 4.48. Calcium level is 8.7 and magnesium 2.2. Yesterday his albumin was 2.6. PROBLEMS: 1. End stage renal disease. The patient was dialyzed yesterday, which is his regular day. He will be scheduled for a next hemodialysis on Wednesday. At present, his volume status is well compensated and electrolytes are within normal range. There is no emergent need for dialysis today. 2. Recurrent rectal bleeding. The patient is known to have radiation proctitis with ulcer in his rectosigmoid area, which was bleeding recently. He will probably need another sigmoidoscopy. At present, bleeding does not seem to be of any significance and I agree with plans for sigmoidoscopy on Wednesday. We will have to work around the dialysis schedule. 3. Acute blood loss anemia. His anemia is stable at present with only slight decline in hemoglobin. Transfusion is not indicated. 4. Chronic atrial fibrillation. Ventricular rate seems to be reasonably well controlled. The patient is not a suitable candidate for anticoagulation due to ongoing bleeding. 5. Peripheral vascular disease, status post bilateral below the knee amputations. The [facility]. At present, he is quite weak and deconditioned. He is not able to transfer by himself. I will recommend to continue with physical therapy (PT) while he is here in the hospital. I thank you for involving me in the care of Mr. Fernandez. I will follow him along with you.
--- NOTE | 2017-02-28 23:25 | IPN ---
DATE: 02/28/2017 Mr. Fernandez is seen this afternoon on his bedside. His significant other is present in the room. The patient is resting comfortably. He had a colonoscopy earlier today which showed some friable mucosa in the rectum which was treated with argon plasma coagulation. The patient had his last hemodialysis on Wednesday. He was nothing by mouth most of the weekend. At present he has no dyspnea or chest pain. PHYSICAL EXAMINATION: Temperature 98.6 degrees Fahrenheit, heart rate 90 per minute and respiratory rate 18 per minute. Blood pressure 103/52 mmHg and oxygen saturation 96% on room air. His head is atraumatic. Neck is supple and without jugular venous distention (JVD) or thyroid enlargement. He is edentulous and without any oral thrush or ulcers. Heart sounds are irregular in rhythm. Lungs clear to auscultation with diminished breath sounds bilaterally. Abdomen soft and bowel sounds are present. There is no palpable organomegaly. Extremities have no cyanosis or clubbing. He has bilateral njlkd-[id number] amputation and left forearm arteriovenous (AV) fistula is patent. Today's labs show WBC count 6.8, hemoglobin 8.7 and hematocrit 26.0. Platelets 150. Sodium 143 and potassium 4.7. BUN 23 and creatinine 5.82. Calcium level is 8.6. PROBLEMS: 1. End-stage renal disease. The patient is regularly dialyzed on Wednesday, Wednesday and Wednesday schedule. At present his electrolytes are normal and volume status is very well compensated. We will reevaluate him tomorrow for need for dialysis. No emergent indication for dialysis today. 2. Acute blood loss anemia. His anemia is gradually worsening. His complete blood count (CBC) will be checked again tomorrow morning. At present there is no need for an emergent transfusion. We will give him intravenous Venofer and Aranesp during dialysis. 3. Recurrent rectal bleeding. The patient has known history of radiation proctitis which is the cause of his rectal bleeding. At present he does not seem to be actively bleeding. 4. Atrial fibrillation. Ventricular rate is reasonably well-controlled. The patient is not a suitable candidate for anticoagulation. 5. Peripheral vascular disease, status post bilateral [id number] amputation. His leg stumps are healed and he will continue with subacute rehabilitation following this hospitalization. His significant other had several questions about his rehabilitation issues which were all answered.
[2017-03-01] MEDS: GABAPENTIN 300 MG CAP PO SCH (04:33)
[2017-03-01] MEDS: DIGOXIN 0.125 MG TAB PO SCH (04:33)
[2017-03-01] MEDS: VITAMIN D 1,000 INTERNATIONAL UNITS TABLET PO SCH (04:33)
[2017-03-01] MEDS: SODIUM CHLORIDE NASAL 0.65% SPRAY BTL (OCEAN) SCH ×2 (04:35→15:29)
[2017-03-01 04:45] VITALS: BP 104/52
[2017-03-01 05:32] LABS: MEAN CORPUSCULAR HEMOGLOBIN 26.3 pg (27.0-33.0); MEAN CORPUSCULAR HGB CONC 29.4 g/dl (32.0-36.5); MEAN CORPUSCULAR VOLUME 89.4 fl (80.0-96.0); RED CELL DISTRIBUTION WIDTH 16.1 % (11.5-14.5)
[2017-03-01 05:35] LABS: CALCIUM LEVEL 8.3 MG/DL (8.8-10.2); CREATININE FOR GFR 7.9 MG/DL (0.70-1.30); GLOMERULAR FILTRATION RATE 8.8 (>49)
[2017-03-01 05:37] LABS: POTASSIUM SERUM 5.4 MEQ/L (3.5-5.1)
[2017-03-01] MEDS ORDERED: DARBEPOETIN 100 MCG/0.5 ML *DIALYSIS* SYRINGE (J0882) IV SCH (07:00)
[2017-03-01] MEDS ORDERED: IRON SUCROSE 100 MG/5 ML INJ (J1756) IV SCH (07:00)
[2017-03-01 08:00] VITALS: BP 118/59
--- NOTE | 2017-03-01 11:47 | IPNPDOC ---
Subjective Date Seen The patient was seen on 03/01/17. Subjective Chief Complaint/HPI The patient is a 66-year-old male admitted with a reason for visit of GIB. Events since last encounter No further GIB after sigmoidoscopy yesterday, feeling well, going for HD today. No abdominal pain , no nausea or vomiting . Objective Physical Examination General Exam: Positive: Alert, Cooperative, No Acute Distress Eye Exam: Positive: Conjunctiva & lids normal, EOMI, PERRLA, Negative: Sclera icteric ENT Exam: Positive: Atraumatic, Mucous membr. moist/pink, Pharynx Normal Neck Exam: Positive: Supple, Negative: JVD, thyromegaly Chest Exam: Positive: Clear to auscultation Heart Exam: Positive: Irregular Rhythm, Murmurs, Normal S1, Normal S2 Abdomen Exam: Positive: Normal bowel sounds, Soft Extremity Exam: Positive: Other (Has bilateral BKA) Skin Exam: Positive: Nl turgor and temperature, Negative: Breakdown, Rash Assessment /Plan Problems (1) GIB (gastrointestinal bleeding) Status: Acute Problem Text: Had sigmoidoscopy on 02/12/17 found to have rectal ulcer which was clipped. Possibly has underlying radiation proctitis also. Had sigmoidoscopy again on 02/28/17 Showed Patient with bleeding rectal ulcer found 2 weeks ago. Repeat exam shows healing base of ulcer but circumferentially congested, friable tissue surrounding it and chronic changes to surrounding mucosa at the area. Suspect radiation proctitis.Anal fissure found on perianal exam. - Congested and ulcerated mucosa in the distal rectum. Treated with argon plasma coagulation (APC). Dr Robin following. HH is stable. (2) End stage renal disease on dialysis Status: Chronic Problem Text: MWF (3) A-fib Status: Chronic Problem Text: rate is controlled. NOt on anticoagulation due to recurrent GIBs. (4) PAD (peripheral artery disease) Status: Chronic (5) Status post below knee amputation of left lower extremity Status: Chronic (6) Diastolic CHF, acute Status: Chronic (7) Right heart failure due to pulmonary hypertension Status: Chronic (8) History of prostate cancer Status: Chronic Problem Text: with h/o of radiation may also have underlying radiation proctitis. (9) Pulmonary hypertension Status: Chronic Plan/VTE VTE Prophylaxis Ordered?: Yes VS, I&O, 24H, Fishbone Vital Signs/I&O Vital Signs Date Time Temp Pulse Resp B/P Pulse Ox O2 Delivery O2 Flow Rate FiO2 03/01/17 08:00 98.0 80 18 118/59 97 Room Air 02/28/17 09:32 2 I&O- Last 24 Hours up to 6 AM 03/01/17 06:00 Intake Total 1850 ml Output Total 0 ml Balance 1850 ml Laboratory Data 24H LABS Laboratory Tests 2 03/01/17 04:52: Anion Gap 7L, Blood Urea Nitrogen 30H, Creatinine 7.90H, Sodium Level 142, Potassium Level 5.4H, Chloride Level 106, Carbon Dioxide Level 29, Calcium Level 8.3L, Glomerular Filtration Rate 8.8L CBC/BMP Laboratory Tests 02/28/17 15:44 02/28/17 23:37 03/01/17 04:52 Calcium Level 8.3 L, Red Blood Count 3.07 L, Mean Corpuscular Volume 89.4, Mean Corpuscular Hemoglobin 26.3 L, Mean Corpuscular Hemoglobin Concent 29.4 L, Red Cell Distribution Width 16.1 H PENNY BERGMAN MD Mar 01, 2017 11:47
--- NOTE | 2017-03-01 13:23 | IPN ---
DATE: 03/01/2017 Mr. Fernandez is seen this morning on his bedside during dialysis. He is resting comfortably at present. He has no dyspnea, chest pain, nausea or vomiting. He underwent colonoscopy yesterday. PHYSICAL EXAMINATION Temperature 98 degrees Fahrenheit, heart rate 80 per minute and respiratory rate 18 per minute. Blood pressure 118/59 mmHg and oxygen saturation 97%. Head is atraumatic. He is edentulous and without any thrush or ulcers. Ears, nose and throat are unremarkable. Heart sounds irregular in rhythm. Lungs: Clear to auscultation. Abdomen is soft and nontender and bowel sounds normal. Extremities have no cyanosis or clubbing. He has bilateral allgx-zqn-imft amputation. Left arm AV fistula is working well. Labs show WBC count 9.0, hemoglobin 8.1,hematocrit 28. Sodium 142 and potassium 5.4. BUN 30 and creatinine 7.9. PROBLEMS: 1. End-stage renal disease. The patient is being dialyzed today. This is his regular dialysis day. He will complete his 3-1/2-hour treatment. 2. Hyperkalemia. This is mild and likely to correct with hemodialysis. The patient is being dialyzed with 2.0 mEq potassium bath. 3. Anemia. The patient has history of recurrent rectal bleeding. He most likely has iron deficiency. We will give him Venofer 100 mg every hemodialysis treatment along with Aranesp 200 mcg once a week. At present. he does not seem to have any active blood loss. 4. Recurrent rectal bleeding with acute blood loss anemia. The patient has known history of radiation proctitis and had a colonoscopy done yesterday. He did have some active bleeding which was coagulated. At present he will need continued monitoring of his hematocrit. 5. Peripheral vascular disease, status post bilateral [id number]-[id number]-[id number] amputation. The patient has recently undergone bilateral xiacq-qij-dmuq amputations. He was getting rehabilitation; however, had recurrent GI bleed. He will need to go for subacute rehab again. [facility]
[2017-03-01 13:45] VITALS: BP 106/52
[2017-03-01 18:22] VITALS: BP 115/55
[2017-03-01 22:00] VITALS: BP 110/55
[2017-03-02 05:17] VITALS: BP 113/58
[2017-03-02] MEDS: VITAMIN D 1,000 INTERNATIONAL UNITS TABLET PO SCH (05:28)
[2017-03-02] MEDS: GABAPENTIN 300 MG CAP PO SCH (05:28)
[2017-03-02] MEDS: SODIUM CHLORIDE NASAL 0.65% SPRAY BTL (OCEAN) SCH ×2 (05:29→16:00)
[2017-03-02 07:06] LABS: CALCIUM LEVEL 8.4 MG/DL (8.8-10.2); CREATININE FOR GFR 5.08 MG/DL (0.70-1.30); GLOMERULAR FILTRATION RATE 14.7 (>49); POTASSIUM SERUM 4.3 MEQ/L (3.5-5.1)
[2017-03-02 07:12] LABS: MEAN CORPUSCULAR HEMOGLOBIN 26.5 pg (27.0-33.0); MEAN CORPUSCULAR HGB CONC 29.8 g/dl (32.0-36.5); MEAN CORPUSCULAR VOLUME 89.1 fl (80.0-96.0); WHITE BLOOD COUNT 6.6 K/mm3 (4.0-10.0)
--- NOTE | 2017-03-02 12:48 | IPN ---
DATE: 03/02/2017 Mr. Fernandez is seen this morning on his bedside. He was sleeping and I woke him up. He woke right up and denies any complaints. His significant other is present in the room. The patient denies any dyspnea, chest pain, nausea or vomiting. He has no further rectal bleeding. On physical examination, temperature 98.2 degrees Fahrenheit, heart rate 116 per minute and respiratory rate 80 per minute, blood pressure 113/58 mmHg and oxygen saturation 97in room air. Head is atraumatic. He is edentulous and without any thrush or ulcers. Pupils are equal and reactive to light and sclera is anicteric. Neck is supple and without jugular venous distention (JVD) or thyroid enlargement. Heart sounds are irregular and tachycardiac. Lungs: Clear to auscultation. Abdomen: Soft and nontender. Bowel sounds are normal and there is no palpable organomegaly. Extremities: Have no cyanosis or clubbing. He has bilateral BKAs.. Left forearm fistula is patent. Today's labs show WBC count 6.6, hemoglobin 8.1 and hematocrit 27.1. Platelets 134. Sodium 139 and potassium 4.3. BUN 14 and creatinine 5.08. Calcium level is 8.4. PROBLEMS: 1. End-stage renal disease. The patient is regularly dialyzed on Wednesday, Wednesday and Wednesday schedule. We will plan to dialyze him again tomorrow. His volume status is very well compensated. 2. Anemia. The patient is currently receiving intravenous iron and Aranesp. I have discussed with Dr. Lancaster today and we plan to transfuse him 2 units of packed RBCs tomorrow in preparation for discharge. 3. Hyperkalemia. Potassium level is now within normal range. No intervention is needed at this point. 4. Atrial fibrillation with rapid ventricular rate. Chronic issue. The patient is not suitable for anticoagulation due to recurrent rectal bleeding and radiation proctitis. 5. Recurrent rectal bleeding. The patient is known to have radiation proctitis. Bleeding has stopped since most recent colonoscopy and coagulation. No intervention is needed at this time other than transfusion pending tomorrow. 6. Disposition. From a renal standpoint, the patient is ready for discharge in the next couple of days. He is likely to go back to [facility] for subacute rehabilitation. [facility]
[2017-03-02 14:00] VITALS: BP 108/58
--- NOTE | 2017-03-02 20:10 | IPNPDOC ---
Subjective Date Seen The patient was seen on 03/02/17. Subjective Chief Complaint/HPI The patient is a 66-year-old male admitted with a reason for visit of GIB. Constitutional: Denies: Chills, Fever, Night Sweats Cardiovascular: Denies: Chest Pain, Lt Headedness, Orthopnea, Palpitations, Paroxysmal Noc. Dyspnea Objective Physical Examination General Exam: Positive: Alert, Cooperative, No Acute Distress Eye Exam: Positive: Conjunctiva & lids normal, EOMI, PERRLA, Negative: Sclera icteric ENT Exam: Positive: Atraumatic, Mucous membr. moist/pink, Pharynx Normal Neck Exam: Positive: Supple, Negative: JVD, thyromegaly Chest Exam: Positive: Clear to auscultation Heart Exam: Positive: Irregular Rhythm, Murmurs, Normal S1, Normal S2 Abdomen Exam: Positive: Normal bowel sounds, Soft Extremity Exam: Positive: Other (Has bilateral BKA) Skin Exam: Positive: Nl turgor and temperature, Negative: Breakdown, Rash Assessment /Plan Problems (1) GIB (gastrointestinal bleeding) Status: Acute Problem Text: Had sigmoidoscopy on 02/12/17 found to have rectal ulcer which was clipped. Possibly has underlying radiation proctitis also. Had sigmoidoscopy again on 02/28/17 Showed Patient with bleeding rectal ulcer found 2 weeks ago. Repeat exam shows healing base of ulcer but circumferentially congested, friable tissue surrounding it and chronic changes to surrounding mucosa at the area. Suspect radiation proctitis.Anal fissure found on perianal exam. - Congested and ulcerated mucosa in the distal rectum. Treated with argon plasma coagulation (APC). Dr Robin following. HH is stable. (2) End stage renal disease on dialysis Status: Chronic Problem Text: MWF (3) A-fib Status: Chronic Problem Text: rate is controlled. NOt on anticoagulation due to recurrent GIBs. (4) PAD (peripheral artery disease) Status: Chronic (5) Status post below knee amputation of left lower extremity Status: Chronic (6) Diastolic CHF, acute Status: Chronic (7) Right heart failure due to pulmonary hypertension Status: Chronic (8) History of prostate cancer Status: Chronic Problem Text: with h/o of radiation may also have underlying radiation proctitis. (9) Pulmonary hypertension Status: Chronic Plan/VTE VTE Prophylaxis Ordered?: Yes VS, I&O, 24H, Fishbone Vital Signs/I&O Vital Signs Date Time Temp Pulse Resp B/P Pulse Ox O2 Delivery O2 Flow Rate FiO2 03/02/17 14:00 103 100/56 03/02/17 14:00 98.6 20 98 Room Air 02/28/17 09:32 2 I&O- Last 24 Hours up to 6 AM 03/02/17 06:00 Intake Total 2370 ml Output Total 1500 ml Balance 870 ml Laboratory Data 24H LABS Laboratory Tests 2 03/02/17 06:35: Anion Gap 7L, Blood Urea Nitrogen 14#, Creatinine 5.08H, Sodium Level 139, Potassium Level 4.3#, Chloride Level 102, Carbon Dioxide Level 30, Calcium Level 8.4L, Glomerular Filtration Rate 14.7L CBC/BMP Laboratory Tests 03/02/17 06:35 Calcium Level 8.4 L, Red Blood Count 3.04 L, Mean Corpuscular Volume 89.1, Mean Corpuscular Hemoglobin 26.5 L, Mean Corpuscular Hemoglobin Concent 29.8 L, Red Cell Distribution Width 16.0 H CRISTELA YOUNG DO Mar 02, 2017 20:10
[2017-03-02 22:00] VITALS: BP 130/61
[2017-03-03] MEDS: VITAMIN D 1,000 INTERNATIONAL UNITS TABLET PO SCH (05:31)
[2017-03-03] MEDS: GABAPENTIN 300 MG CAP PO SCH (05:31)
[2017-03-03] MEDS: SODIUM CHLORIDE NASAL 0.65% SPRAY BTL (OCEAN) SCH ×2 (05:32→16:14)
[2017-03-03] MEDS: DIGOXIN 0.125 MG TAB PO SCH (05:32)
[2017-03-03 06:00] VITALS: BP 113/59
[2017-03-03 07:06] LABS: MEAN CORPUSCULAR HEMOGLOBIN 26.4 pg (27.0-33.0); MEAN CORPUSCULAR HGB CONC 29.7 g/dl (32.0-36.5); MEAN CORPUSCULAR VOLUME 88.8 fl (80.0-96.0); RED CELL DISTRIBUTION WIDTH 16.1 % (11.5-14.5); WHITE BLOOD COUNT 7.1 K/mm3 (4.0-10.0)
[2017-03-03 07:15] LABS: CALCIUM LEVEL 8.5 MG/DL (8.8-10.2); CREATININE FOR GFR 6.84 MG/DL (0.70-1.30); GLOMERULAR FILTRATION RATE 10.4 (>49); POTASSIUM SERUM 4.6 MEQ/L (3.5-5.1)
--- NOTE | 2017-03-03 10:59 | IPN ---
DATE: 03/03/2017 Mr. Fenrandez is seen this morning during hemodialysis. He has persistent cough with some minor colorless sputum production. He has no hemoptysis or pleuritic type of chest pain. He has no fever or chills. The patient denies any nausea, vomiting or abdominal pain. PHYSICAL EXAMINATION: Temperature 98.5 degrees Fahrenheit, heart rate 96 per minute and respiratory rate 18 per minute. Blood pressure 113/59 mmHg and oxygen saturation 96% on room air. Head: Is atraumatic. Ears, nose and throat are unremarkable. He is edentulous and without any thrush or ulcers. Neck is supple and without JVD or thyroid enlargement. Heart: Sounds are irregular in rhythm with a systolic murmur grade 2/6. Lungs with scattered rhonchi. Abdomen: Soft and nontender. Bowel sounds are normal and there is no palpable organomegaly. Extremities: Have no cyanosis or clubbing. Today's labs show WBC count 7.1, hemoglobin 7.8 and hematocrit 26.2. Sodium 138 and potassium 4.6. BUN 26 and creatinine 4.84. PROBLEMS: 1. End-stage renal disease. The patient is being dialyzed today for regular dialysis treatment. He will complete 3-1/2-hour dialysis today. 2. Rectal bleeding with blood loss anemia. This is now a chronic issue. The patient has been transfused multiple times. He will be given 1 more unit of packed RBCs today during dialysis. 3. Atrial fibrillation. His ventricular rate is reasonably well-controlled. The patient is not a suitable candidate for anticoagulation. 4. Cough. I am going to get a chest x-ray to rule out any possibility of infiltrate or effusion. We are trying to remove about 1.5 liters of fluid today with dialysis. Depending upon chest x-ray findings, we can adjust his dry weight and also consider antibiotics if needed. DISPOSITION: From a renal standpoint, the patient can be discharged back to [facility] when he is medically stable.
[2017-03-03 14:00] VITALS: BP 120/56
--- NOTE | 2017-03-03 17:41 | REP ---
Chest, single AP view, patient sitting: Comparison is 11/06/2016. There is cardiomegaly, unchanged. There is diffuse interstitial coarsening, unchanged. There is new increased radiodensity inferiorly in the right lung compatible with a new right lower lobe focal infiltrate as an interval change. The left hemidiaphragm is obscured. This could be artifact from AP sitting technique or could represent a new left lower lobe infiltrate. Signed by Tariq Castañeda MD 03/03/2017 05:33 P
[2017-03-03 20:15] VITALS: BP 104/57
[2017-03-03 23:50] VITALS: BP 123/60
[2017-03-04] MEDS: SODIUM CHLORIDE NASAL 0.65% SPRAY BTL (OCEAN) SCH (05:39)
[2017-03-04] MEDS: GABAPENTIN 300 MG CAP PO SCH (05:39)
[2017-03-04] MEDS: VITAMIN D 1,000 INTERNATIONAL UNITS TABLET PO SCH (05:39)
[2017-03-04 06:00] VITALS: BP 111/53
[2017-03-04 06:54] LABS: MEAN CORPUSCULAR HEMOGLOBIN 27.2 pg (27.0-33.0); MEAN CORPUSCULAR VOLUME 87.7 fl (80.0-96.0); RED CELL DISTRIBUTION WIDTH 15.9 % (11.5-14.5); WHITE BLOOD COUNT 7.5 K/mm3 (4.0-10.0)
[2017-03-04 07:09] LABS: CALCIUM LEVEL 8.2 MG/DL (8.8-10.2); CREATININE FOR GFR 4.16 MG/DL (0.70-1.30); GLOMERULAR FILTRATION RATE 18.5 (>49); POTASSIUM SERUM 3.8 MEQ/L (3.5-5.1)
--- NOTE | 2017-03-04 12:37 | REP ---
CT of the chest without IV contrast: Comparison is the AP and lateral plain film study performed earlier this are performed on 03/03/2017. There is also a comparison chest CT of 12/19 2016. There are bilateral pleural effusions, not present on the comparison CT, likely accounting for the bibasilar densities on the plain film study yesterday. There are no infiltrates, nodules or masses. There are calcified granulomas in the right hilus. This is unchanged. There is atheromatous calcification in the ascending aorta at the level of the aortic valve. The aorta is otherwise unremarkable. Cardiac size is normal. No pericardial effusion. The visualized upper abdominal contents are unremarkable except for bilateral renal cortical atrophy and multiple bilateral renal cysts. Impression: New bilateral pleural effusions. Signed by Tariq Castañeda MD 03/04/2017 12:28 P
[2017-03-04] MEDS ORDERED: DILT30TA PO (13:15)
--- NOTE | 2017-03-04 13:33 | IPN ---
DATE: 03/04/2017 Mr. Fernandez is seen this morning on his bedside. He is resting comfortably at present. Yesterday he had persistent cough. A chest x-ray was done. There is a suspicion for right lower lobe infiltrate. The patient has been afebrile. At present he denies any dyspnea or chest pain. On physical examination, temperature 98.5 degrees Fahrenheit, heart rate 76 per minute and respiratory rate 17 per minute. Blood pressure 111/53 mmHg and oxygen saturation 98% on room air. Head is atraumatic. Ears, nose and throat are unremarkable. He is edentulous and without any oral thrush or ulcers. Heart sounds are irregular in rhythm. Lungs with slightly diminished breath sounds at bases. Abdomen soft and nontender and without a palpable organomegaly. Extremities have no cyanosis or clubbing. Left arm atrioventricular (AV) fistula is patent. He has [id number] amputation bilaterally. Today's laboratories show seven WBC count 7.5, hemoglobin 9.3 and hematocrit 29.9. Sodium 114, potassium 3.8. BUN 11 and creatinine 4.16. PROBLEMS: 1. End-stage renal disease. The patient was dialyzed yesterday and his regular dialysis is done on Wednesday, Wednesday and Wednesday schedule. Next dialysis will be tomorrow. 2. Cough. Chest x-ray raised the suspicion for new infiltrate. We will get a chest CT scan and if there is any significant consolidation, then he will be treated with antibiotics. If not, then he can probably be discharged back to care home for further followup as an outpatient. 3. Recurrent rectal bleeding with blood loss anemia. The patient has been transfused. We will follow up as outpatient and transfuse him as needed. 4. Atrial fibrillation. Ventricular rate is well-controlled. The patient is not suitable candidate for anticoagulation. DISPOSITION: Once his respiratory status is clarified, then he can probably be discharged back to [facility]. I have discussed the plan of care with Dr. Lancaster this morning.
[2017-03-04 13:34] VITALS: BP 119/58
--- NOTE | 2017-03-21 21:53 | DSES ---
DATE OF ADMISSION: 02/26/2017 DATE OF DISCHARGE: 03/04/2017 REASON FOR ADMISSION: Maroon-colored blood per rectum. PRIMARY CARE PROVIDER: Dr. Tiarra Torres. FINAL DIAGNOSES: 1. Gastrointestinal (GI) bleed secondary to rectal ulcer, status post clipping. 2. End-stage renal disease on dialysis. 3. History of atrial fibrillation. 4. Peripheral arterial disease. 5. Below-knee amputation on the left. 6. Acute diastolic congestive heart failure. 7. Pulmonary hypertension. 8. History of prostate cancer status post radiation resulting in radiation proctitis. CONSULTATION DURING ADMISSION: Dr. Colin Madrigal was consulted for GI bleed. Also Dr. Jean-Baptiste was consulted for end-stage renal disease hemodialysis. HISTORY OF PRESENT ILLNESS: The patient is a 66-year-old male with multiple comorbidities, recurrent GI bleed, who presented to the emergency room for maroon-colored stool and blood per rectum. The patient was discharged from [facility]. He went to [facility]. He was only there for a few hours before he admitted to [facility]. He had scope by Dr. Heath. Last time he was found to have single ulcer. Dr. Heath added a clip to the ulcer, and he had verbally expressed that the patient will likely bleed again. He was unsure about the ability of the clips to remain in place and control the bleeding. This time, the patient was admitted under hospitalist service. HOSPITAL COURSE: The patient was evaluated by Dr. Madrigal, where he took him back to the operating room (OR). He was found to have a diffuse area of moderate congestion ulceration in distal rectum. He had anal fissure found on the pre-anal exam. He was treated with argon plasma coagulation. No specimens were collected, and the patient was returned back to the floor. During this admission, the patient received two units of blood. Hemoglobin was holding relatively steady with slow decline until it reached 7.8. That is when he required two units of blood which brought him up to 9.3. Once the patient's symptoms had improved somewhat, he was returned back to the [facility]. The patient will likely require multiple blood transfusions and may need repeat endoscopy for his proctitis and recurrent bleeding ulcers. DISCHARGE INSTRUCTIONS: The patient was discharged back to [facility]. Diet regular. Activities as tolerated. Discharge medications included: - acetaminophen 650 mg every four hours as needed for pain - vitamin D3 1000 units by mouth in the morning - digoxin 0.125 mg three times a week - docusate sodium 100 mg by mouth three times a day as needed for constipation - gabapentin 300 mg in the morning - diltiazem 300 mg in the morning - Nepro one liquid by mouth daily
== END 2017-03-04 14:06 | DRG 393 ==
LOC: M ED 13:30 → M ED INP 15:25 → M PCU 16:23 → M MSPAV 03-01 18:19
PROVIDERS: ADMIT Internal Medicine; ATTEND Internal Medicine
PROC: 0D5P8ZZ Destruction of Rectum, Via Natural or Artificial Opening Endoscopic (ICD-10-PCS; principal; 2017-02-28 08:30)
PROC: 30233N1 Transfusion of Nonautologous Red Blood Cells into Peripheral Vein, Percutaneous Approach (ICD-10-PCS; 2017-03-03)
DX: K60.2 Anal fissure, unspecified (principal); I50.31 Acute diastolic (congestive) heart failure; N18.6 End stage renal disease; D62 Acute posthemorrhagic anemia; K92.2 Gastrointestinal hemorrhage, unspecified; I12.0 Hypertensive chronic kidney disease with stage 5 chronic kidney disease or end stage renal disease; I73.9 Peripheral vascular disease, unspecified; I48.91 Unspecified atrial fibrillation; I27.2 Other secondary pulmonary hypertension; Z85.46 Personal history of malignant neoplasm of prostate; I35.0 Nonrheumatic aortic (valve) stenosis; Z87.891 Personal history of nicotine dependence; Z79.899 Other long term (current) drug therapy; R47.02 Dysphasia; E11.9 Type 2 diabetes mellitus without complications

== ENCOUNTER 2017-03-08 05:35 | Inpatient (IN) | payer MEDICARE, MEDICAID ==
[~2017-03-08 05:35] MED LIST changes: +CARD240T2 PO; +DILT30TA PO; +NEPRLIQ PO; +VITA100041 PO
[2017-03-08] MEDS ORDERED: NS 500 ML IV ONE (06:00)
[2017-03-08 06:44] LABS: BASO % 0.2 % (0.0-1.0); EOS # 0.3 K/mm3 (0.0-0.50); EOS % 3.9 % (0.0-3.0); LARGE UNSTAINED CELL # 0.1 K/mm3 (0.0-0.4); LARGE UNSTAINED CELL % 1.2 % (0.0-4.0); LYMPH # 1.2 K/mm3 (1.5-4.5); LYMPH % 16.3 % (24.0-44.0); MEAN CORPUSCULAR HEMOGLOBIN 27.8 pg (27.0-33.0); MEAN CORPUSCULAR HGB CONC 31.2 g/dl (32.0-36.5); MONO # 0.3 K/mm3 (0.0-0.8); MONO % 4.4 % (0.0-5.0); NEUTROPHILS # 5.6 K/mm3 (1.8-7.7); PLATELET COUNT, AUTOMATED 159 k/mm3 (150-450); RED CELL DISTRIBUTION WIDTH 16.4 % (11.5-14.5); WHITE BLOOD COUNT 7.5 K/mm3 (4.0-10.0)
[2017-03-08 07:00] LABS: ALBUMIN 2.7 GM/DL (3.2-5.2); ALBUMIN/GLOBULIN RATIO 0.73 (1.00-1.93); BILIRUBIN,DIRECT 0.2 MG/DL (0.0-0.2); BILIRUBIN,TOTAL 0.5 MG/DL (0.2-1.0); CALCIUM LEVEL 8.5 MG/DL (8.8-10.2); CREATININE FOR GFR 7.6 MG/DL (0.70-1.30); GLOMERULAR FILTRATION RATE 9.2 (>49); TOTAL PROTEIN 6.4 GM/DL (6.4-8.2)
[2017-03-08 07:24] LABS: INR 1.05
[2017-03-08 07:38] LABS: DIGOXIN LEVEL 1.3 NG/ML (0.5-2.0)
[2017-03-08] MEDS ORDERED: ONDANSETRON 4MG/2ML VIAL (J2405) IV PRN (10:15)
[2017-03-08 11:39] LABS: MEAN CORPUSCULAR HEMOGLOBIN 26.6 pg (27.0-33.0); MEAN CORPUSCULAR HGB CONC 30.1 g/dl (32.0-36.5); MEAN CORPUSCULAR VOLUME 88.5 fl (80.0-96.0); RED CELL DISTRIBUTION WIDTH 16.4 % (11.5-14.5); WHITE BLOOD COUNT 7.1 K/mm3 (4.0-10.0)
--- NOTE | 2017-03-08 12:35 | CR ---
DATE OF CONSULTATION: 03/08/2017 REQUESTING PHYSICIAN: Dr. Garcia CONSULTING PHYSICIAN: Dr. Abraham REASON FOR CONSULTATION: Management of end stage renal disease and hemodialysis. CHIEF COMPLAINT: The patient was sent from the group home because of rectal bleeding. HISTORY OF PRESENT ILLNESS: Mr. Nicho Fernandez is a 66-year-old male with past medical history of end stage renal disease on hemodialysis every Wednesday, Wednesday and Wednesday, well known to the nephrology service from outpatient hemodialysis. He has multiple other comorbidities including diabetes, hypertension, peripheral vascular disease, status post bilateral below knee amputations and recent history of recurrent gastrointestinal (GI) bleeds requiring multiple admissions. He was recently admitted a few weeks ago with rectal bleeding. He got a colonoscopy done and a bleeding ulcer got clipped and he was sent to the group home, but today the patient was sent again to the emergency room because of rectal bleeding and nephrology service was called for management of end stage renal disease and hemodialysis. The patient is being admitted under the hospitalist service. PAST MEDICAL HISTORY: 1. History of end stage renal disease on hemodialysis every Wednesday, Wednesday and Wednesday. 2. History of recurrent GI bleeding. 3. History of chronic atrial fibrillation, not on anticoagulation because of GI bleeding. 4. Peripheral vascular disease. 5. Diabetes mellitus type 2. 6. Secondary hyperparathyroidism. 7. History of carcinoma of prostate, status post radiation therapy causing radiation proctitis. 8. Diastolic congestive heart failure. 9. Pulmonary hypertension. 10. Moderate to severe aortic stenosis. 11. History of internal hemorrhoids. PAST SURGICAL HISTORY: 1. Status post bilateral below knee amputations. 2. Status post multiple colonoscopies. 3. Status post left upper arm AV fistula placement for hemodialysis. ALLERGIES: - HEPARIN - PENICILLINS FAMILY HISTORY: No significant family history of end stage renal disease requiring hemodialysis. SOCIAL HISTORY: The patient is a former smoker. He is currently a resident of [facility]. He denies any alcohol abuse or drug abuse. REVIEW OF SYSTEMS: CONSTITUTIONAL: The patient denies any fever, chills or rigors. EYES: The patient denies any double vision or blurry vision. ENT: The patient denies any dysphagia, odynophagia, ear discharge. CARDIOVASCULAR: The patient reports atrial fibrillation, otherwise denies any chest pain or palpitations. RESPIRATORY: He denies any cough, shortness of breath. GI: The patient reports rectal bleeding, but he denies any nausea or vomiting. GENITOURINARY: He denies any dysuria or hematuria. MUSCULOSKELETAL: He reports bilateral below knee amputations. 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 HEMATOLOGIC/ONCOLOGIC: He reports history of CA of prostate in the past and anemia secondary to end stage renal disease. ENDOCRINE: The patient is diabetic and he has secondary hyperparathyroidism. PSYCHIATRIC: He denies any history of depression or anxiety. All other review of systems is negative. PHYSICAL EXAMINATION: GENERAL: The patient is awake, alert and oriented times three, laying in bed in no apparent distress. VITAL SIGNS: Temperature 98 degrees Fahrenheit. Blood pressure 118/56. Pulse 88. Respiratory rate 14. Saturating 98% on room air. HEAD AND NECK EXAM: The patient has a squint. Head is normocephalic, atraumatic. Mucous membranes are moist. Neck is supple. There is no jugular venous distention. CARDIOVASCULAR: S1, S2. Regular heart rate. No murmur, rub or gallop. RESPIRATORY: Chest is clear to auscultation bilaterally. Bilateral equal air entry. No rales or rhonchi. ABDOMEN: Soft. Positive bowel sounds. Nontender. No ascites. No organomegaly. EXTREMITIES: The patient has bilateral below knee amputations. CENTRAL NERVOUS SYSTEM: No focal neurological deficit. Power is 5/5 in bilateral upper extremities. AV ACCESS: The patient has a left forearm AV fistula with positive thrill and bruit. SKIN: No rashes or ulcers. GENITOURINARY EXAM: Patient has blood in his diaper. He is actively having a mild amount of rectal bleeding. LYMPH NODES: No significant cervical, axillary or inguinal lymphadenopathy. LAB REVIEW: CBC showed a WBC of 7.5, hemoglobin 10.3 and platelets of 159. INR is 1.05. BMP showed sodium 140, potassium 5, chloride 103, bicarbonate 27, BUN 39, creatinine 7.6, lactic acid 1.4, calcium 8.5, albumin 2.7. CURRENT INPATIENT MEDICATIONS: Patient's medications include: - NS 500 mL IV bolus - Tylenol as needed - gabapentin 300 mg in the morning - Zofran 4 mg every 6 hours as needed nausea or vomiting - vitamin D 1000 units by mouth daily ASSESSMENT: 66-year-old male with past medical history of end stage renal disease on hemodialysis, history of recurrent rectal bleeding secondary to history of radiation proctitis, hypertension, chronic atrial fibrillation, and diabetes mellitus type 2 admitted at this time because of recurrent rectal bleeding. PLAN: 1. End stage renal disease on hemodialysis. The patient's regular dialysis days are Wednesday, Wednesday and Wednesday. The patient will be dialyzed according to his regular schedule today. 2. Chronic atrial fibrillation. Continue current dose of digoxin 0.125 mg by mouth Wednesday, Wednesday and Wednesday. Continue diltiazem 90 mg by mouth every 8 hours. 3. Rectal bleeding. Continue to monitor CBC every 8 hours. Will transfuse as needed for hemoglobin drop below 8. Surgical consult was already requested by the emergency room. The patient will probably get endoscopy done. 4. Peripheral neuropathy. Continue current dose of gabapentin 300 mg by mouth daily. 5. Secondary hyperparathyroidism. It will be managed as per outpatient protocol. The patient is not on Sensipar or calcitriol orally as inpatient. Thank you for involving us in the care of this patient. We shall be happy to follow the patient along with you tomorrow morning. Plan of care was discussed with the hospitalist team, Dr. Garcia.
[2017-03-08] MEDS ORDERED: DARBEPOETIN 100 MCG/0.5 ML *DIALYSIS* SYRINGE (J0882) IV SCH (12:45)
--- NOTE | 2017-03-08 15:20 | HPEPDOC ---
General Date of Admission March 08, 2017 at 10:14 Primary Care Physician: MAKAYLA BRADLEY DO Chief Complaint The patient is a 66-year-old male admitted with a reason for visit of Gib( Gastrointestinal Bleeding). Source: Patient History of Present Illness 66-year-old male with past medical history of end-stage renal disease on hemodialysis every Wednesday, Wednesday, and Wednesday, history of recurrent GI bleeding, atrial fibrillation not on anticoagulation because of aforementioned recurrent GI bleeding, peripheral vascular disease status post bilateral BKA, diabetes mellitus, prostate cancer status post radiation therapy, diastolic congestive heart failure, pulmonary hypertension, moderate to severe aortic stenosis, and GERD presented to the ER from the [facility] with a chief complaint of maroon-colored stool starting last night. Of note, the patient was admitted twice just last month for recurrent GI bleeding. During his initial admit for GI bleeding he did have a colonoscopy done by Dr. Heath which revealed a single shallow solitary ulcer in the distal rectum which was clipped. Following this event the patient returned to the hospital 2 weeks later for a recurrent episode of GI bleeding, at which time Dr. Madrigal performed a colonoscopy on 02/28 which revealed a congested and ulcerated mucosa in the distal rectum. This was treated with argon plasma coagulation. At this time, the patient denies any acute complaints of fevers, chills, chest pain, palpitations, shortness of breath, abdominal pain, or any nausea/vomiting/ diarrhea. In the ER, the patient was noted to be hemodynamically stable with a hemoglobin of 10.3. The patient will be admitted under the hospitalist service for further evaluation and management of lower GI bleeding. Home Medications Scheduled (Nepro with Carb Steady) 1 Liq Liq, 1 LIQ PO DAILY, (Reported) (Renal Vitamin 0.8 mg) 1 Tab Tab, 1 TAB PO DAILY, (Reported) (Refresh Lacri-Lube) 1 Oin Oin, 1 DOSE OU QHS, (Reported) Aspirin (Aspirin) 325 Mg Tab, 325 MG PO DAILY, (Reported) Calcium Acetate (Calcium Acetate) 667 Mg Cap, 667 MG PO DAILY, (Reported) Cholecalciferol (Vitamin D-3) 1,000 Unit Tab, 1,000 UNIT PO DAILY, (Reported) Digoxin (Digoxin) 0.125 Mg Tab, 0.125 MG PO DAILY, (Reported) Docusate Sodium (Colace) 100 Mg Cap, 100 MG PO BID, (Reported) Gabapentin (Gabapentin) 300 Mg Cap, 300 MG PO TID, (Reported) Metoprolol Tartrate (Metoprolol Tartrate) 50 Mg Tab, 50 MG PO BID, (Reported) Omeprazole Magnesium (Prilosec Otc) 20 Mg Tab, 20 MG PO DAILY, (Reported) Sodium Chloride ([place] Nasal Lee) 0.65 % Spr, 2 SPRAY NA BID, (Reported) EACH NOSTRIL Scheduled PRN Acetaminophen (Acetaminophen) 325 Mg Tab, 650 MG PO Q4H PRN for PAIN, (Reported) Artificial Tears (Artificial Tears) 1.4 % Beckie, 1 DROP OU QID PRN for DRY EYES, ( Reported) Allergies Coded Allergies: Penicillins (Verified Allergy, Mild, RASH, 03/08/17) Heparin (Verified Adverse Reaction, Severe, HIT - 09/2016, 03/08/17) Past Medical History Medical History As noted in HPI. Surgical History Bilateral below knee amputation (BKA). AV fistula placement. Cataract surgery. Obviously, colonoscopy 02/28/2017 and one previously when he was admitted back in the middle of February as well. Family History Significant Family History: No pertinent family hx Social History * Smoker: former Smoker Alcohol: Denies Drugs: brody Is a resident of [facility] Review of Symptoms Other systems 10 point review of systems negative unless otherwise specified in HPI. Physical Examination General Exam: Positive: Alert, Cooperative, No Acute Distress ENT Exam: Positive: Atraumatic, Mucous membr. moist/pink Neck Exam: Negative: JVD Chest Exam: Positive: Normal air movement, Diminished Heart Exam: Positive: Rate Normal, Normal S1, Normal S2 Abdomen Exam: Positive: Soft, Negative: Tenderness Extremity Exam: Positive: Other (bilateral below the knee amputations noted) Vital Signs Vital Signs Date Time Temp Pulse Resp B/P (MAP) Pulse Ox O2 Delivery O2 Flow Rate FiO2 03/08/17 11:03 98.7 108 18 121/58 (79) 93 Room Air Laboratory Data Labs 24H Laboratory Tests 2 03/08/17 06:27: White Blood Count 7.5, Red Blood Count 3.72L, Hemoglobin 10.3L, Hematocrit 33.1L , Mean Corpuscular Volume 89.0, Mean Corpuscular Hemoglobin 27.8, Mean Corpuscular Hemoglobin Concent 31.2L, Red Cell Distribution Width 16.4H, Platelet Count 159, Neutrophils (%) (Auto) 74.0H, Lymphocytes (%) (Auto) 16.3L, Monocytes (%) (Auto) 4.4, Eosinophils (%) (Auto) 3.9H, Basophils (%) (Auto) 0.2 , Neutrophils # (Auto) 5.6, Lymphocytes # (Auto) 1.2L, Monocytes # (Auto) 0.3, Eosinophils # (Auto) 0.3, Basophils # (Auto) 0.0, Large Unclassified Cells % 1.2 , Large Unclassified Cells # 0.1, Prothrombin Time 13.8, Prothromb Time International Ratio 1.05, Anion Gap 10, Glomerular Filtration Rate 9.2L, Lactic Acid Level 1.4, Calcium Level 8.5L, Aspartate Amino Transf (AST/SGOT) 28, Alanine Aminotransferase (ALT/SGPT) 54, Alkaline Phosphatase 193H, Total Bilirubin 0.5, Direct Bilirubin 0.2, Total Protein 6.4, Albumin 2.7L, Albumin/ Globulin Ratio 0.73L, Lipase 277, Digoxin Level 1.3 CBC/BMP Laboratory Tests 03/08/17 06:27 Red Blood Count 3.72 L, Mean Corpuscular Volume 89.0, Mean Corpuscular Hemoglobin 27.8, Mean Corpuscular Hemoglobin Concent 31.2 L, Red Cell Distribution Width 16.4 H, Neutrophils (%) (Auto) 74.0 H, Lymphocytes (%) (Auto ) 16.3 L, Monocytes (%) (Auto) 4.4, Eosinophils (%) (Auto) 3.9 H, Basophils (%) (Auto) 0.2, Neutrophils # (Auto) 5.6, Lymphocytes # (Auto) 1.2 L, Monocytes # ( Auto) 0.3, Eosinophils # (Auto) 0.3, Basophils # (Auto) 0.0 03/08/17 11:24 Red Blood Count 3.56 L, Mean Corpuscular Volume 88.5, Mean Corpuscular Hemoglobin 26.6 L, Mean Corpuscular Hemoglobin Concent 30.1 L, Red Cell Distribution Width 16.4 H Plan / VTE VTE Prophylaxis Ordered?: Yes Plan Plan Recurrent Gastrointestinal bleeding Hgb Stable (10.3), and Blood Pressure Stable here in the ER Colonoscopy on 02/12/[address] Heath revealed a single shallow solitary ulcer in the distal rectum which was clipped. Dr. Madrigal performed a colonoscopy on 02/28 which revealed a congested and ulcerated mucosa in the distal rectum. This was treated with argon plasma coagulation At this time we will monitor the patient with serial H&H's Dr. Alas of Surgery has been contacted by the ER Attending, and we will follow up with Surgery recommendations End-stage renal disease on hemodialysis Wednesday, Wednesday, Wednesday. Nephrology on board for Dialysis Atrial fibrillation, controlled The patient is not on anticoagulation 2/2 recurrent GI Bleeding We will hold Cardizem incase the patient becomes hypotensive from GI Bleeding Hx of Diastolic congestive heart failure. Managed by hemodialysis Currently Euvolemic Chronic pain Continue with gabapentin. Vitamin D deficiency Continue with supplementation. Deep venous thrombosis (DVT) prophylaxis. Sequentials, thromboembolism deterrent stockings (TEDs). No pharmacological agents. CHAYITO RAMOS MD March 08, 2017 15:19
[2017-03-08 15:47] VITALS: BP 101/52
[2017-03-08] MEDS: SODIUM CHLORIDE NASAL 0.65% SPRAY BTL (OCEAN) SCH ×2 (16:58→20:55)
[2017-03-08] MEDS: VITAMIN D 1,000 INTERNATIONAL UNITS TABLET PO SCH (17:23)
[2017-03-08] MEDS: GABAPENTIN 300 MG CAP PO SCH (17:23)
[2017-03-08 18:48] LABS: MEAN CORPUSCULAR HEMOGLOBIN 27.4 pg (27.0-33.0); MEAN CORPUSCULAR HGB CONC 30.6 g/dl (32.0-36.5); MEAN CORPUSCULAR VOLUME 89.4 fl (80.0-96.0); RED CELL DISTRIBUTION WIDTH 16.2 % (11.5-14.5); WHITE BLOOD COUNT 6.9 K/mm3 (4.0-10.0)
[2017-03-08 20:00] VITALS: BP 132/59
[2017-03-09] VITALS (9 sets, daily range): BP systolic 98–135; BP diastolic 49–70
[2017-03-09 00:05] LABS: MEAN CORPUSCULAR HEMOGLOBIN 27.1 pg (27.0-33.0); MEAN CORPUSCULAR HGB CONC 30.2 g/dl (32.0-36.5); MEAN CORPUSCULAR VOLUME 89.9 fl (80.0-96.0); RED CELL DISTRIBUTION WIDTH 16.3 % (11.5-14.5); WHITE BLOOD COUNT 6.8 K/mm3 (4.0-10.0)
[2017-03-09 06:06] LABS: MEAN CORPUSCULAR HEMOGLOBIN 27.3 pg (27.0-33.0); MEAN CORPUSCULAR HGB CONC 30.3 g/dl (32.0-36.5); MEAN CORPUSCULAR VOLUME 89.9 fl (80.0-96.0); RED CELL DISTRIBUTION WIDTH 16.2 % (11.5-14.5); WHITE BLOOD COUNT 7.2 K/mm3 (4.0-10.0)
[2017-03-09 06:26] LABS: CALCIUM LEVEL 8.6 MG/DL (8.8-10.2); CREATININE FOR GFR 4.97 MG/DL (0.70-1.30); GLOMERULAR FILTRATION RATE 15.1 (>49); POTASSIUM SERUM 4.6 MEQ/L (3.5-5.1)
--- NOTE | 2017-03-09 08:20 | ECGEPIP ---
Stationary ECG Study [facility] - ED Test Date: 2017-03-08 Pat Name: CATHI SEBASTIAN Department: Room: [place] [address] Gender: M Front Desk Representative: genna : 1950 Requested By: Carmita Gallardo Order Number: [id number] Reading MD: Carmita Gallardo Measurements Intervals Ider Rate: 87 P: [place]: 0 QRS: -57 QRSD: 126 T: 94 QT: 347 QTc: 418 Interpretive Statements ECTOPIC ATRIAL RHYTHM MARKED LEFT AXIS DEVIATION MODERATE INTRAVENTRICULAR CONDUCTION DELAY MODERATE ST DEPRESSION Electronically Signed On 03-09-2017 8:20:13 EDT by Carmita Gallardo
[2017-03-09] MEDS: GABAPENTIN 300 MG CAP PO SCH (09:15)
[2017-03-09] MEDS: VITAMIN D 1,000 INTERNATIONAL UNITS TABLET PO SCH (09:15)
[2017-03-09] MEDS: SODIUM CHLORIDE NASAL 0.65% SPRAY BTL (OCEAN) SCH ×2 (09:15→20:47)
--- NOTE | 2017-03-09 11:31 | IPNPDOC ---
Subjective Date Seen The patient was seen on 03/09/17. Subjective Chief Complaint/HPI The patient is a 66-year-old male admitted with a reason for visit of Gib( Gastrointestinal Bleeding). General: Denies: Chills, Night Sweats Constitutional: Denies: Chills, Fever Eyes: Denies: Pain, Vision change ENT: Denies: Head Aches, Ear Pain Skin: Denies: Rash, Lesions Pulmonary: Denies: Dyspnea, Cough Cardiovascular: Denies: Chest Pain, Palpitations Gastrointestinal: Denies: Nausea, Vomiting Genitourinary: Denies: Dysuria, Frequency Hematologic: Reports: Bleeding Excessively Objective Physical Examination General Exam: Positive: Alert, Cooperative, No Acute Distress ENT Exam: Positive: Atraumatic, Mucous membr. moist/pink Neck Exam: Negative: JVD Chest Exam: Positive: Normal air movement, Diminished Heart Exam: Positive: Rate Normal, Normal S1, Normal S2 Abdomen Exam: Positive: Soft, Negative: Tenderness Extremity Exam: Positive: Other (bilateral below the knee amputations noted) Assessment /Plan Plan/VTE VTE Prophylaxis Ordered?: Yes Plan Recurrent Gastrointestinal bleeding Hgb Stable downward trending 10.3-->9.0 over last 24 hrs Blood Pressure Stable here, even after dialysis Colonoscopy on 02/12/[address] Heath revealed a single shallow solitary ulcer in the distal rectum which was clipped. Dr. Madrigal performed a colonoscopy on 02/28 which revealed a congested and ulcerated mucosa in the distal rectum. This was treated with argon plasma coagulation Patient still passing clotted blood, maroon colored stool Cont H&H monitoring q6h Dr. Madrigal to take the patient to OR for further exploration of bleeding ulcer later today End-stage renal disease on hemodialysis Wednesday, Wednesday, Wednesday. Nephrology on board for Dialysis Atrial fibrillation, controlled The patient is not on anticoagulation 2/2 recurrent GI Bleeding We will hold Cardizem incase the patient becomes hypotensive from GI Bleeding Hx of Diastolic congestive heart failure. Managed by hemodialysis Currently Euvolemic Chronic pain Continue with gabapentin. Vitamin D deficiency Continue with supplementation. Deep venous thrombosis (DVT) prophylaxis. Sequentials, thromboembolism deterrent stockings (TEDs). No pharmacological agents. Disposition: The patient and his who is at bedside expressed that they would like to have the patient return back home following discharge from the hospital. I relayed this information to our PFS staff who will further aid in delineating a disposition moving forward. VS, I&O, 24H, Fishbone Vital Signs/I&O Vital Signs Date Time Temp Pulse Resp B/P (MAP) Pulse Ox O2 Delivery O2 Flow Rate FiO2 03/09/17 09:18 Room Air 03/09/17 07:15 98.0 85 20 111/53 (72) 97 I&O- Last 24 Hours up to 6 AM 03/09/17 05:59 Intake Total 500 ml Output Total 4000 ml Balance -3500 ml Laboratory Data 24H LABS Laboratory Tests 2 03/09/17 05:46: Anion Gap 9, Glomerular Filtration Rate 15.1L, Blood Urea Nitrogen 21H, Creatinine 4.97H, Sodium Level 140, Potassium Level 4.6, Chloride Level 102, Carbon Dioxide Level 29, Calcium Level 8.6L CBC/BMP Laboratory Tests 03/08/17 18:05 Red Blood Count 3.52 L, Mean Corpuscular Volume 89.4, Mean Corpuscular Hemoglobin 27.4, Mean Corpuscular Hemoglobin Concent 30.6 L, Red Cell Distribution Width 16.2 H 03/08/17 23:50 Red Blood Count 3.57 L, Mean Corpuscular Volume 89.9, Mean Corpuscular Hemoglobin 27.1, Mean Corpuscular Hemoglobin Concent 30.2 L, Red Cell Distribution Width 16.3 H 03/09/17 05:46 Red Blood Count 3.30 L, Mean Corpuscular Volume 89.9, Mean Corpuscular Hemoglobin 27.3, Mean Corpuscular Hemoglobin Concent 30.3 L, Red Cell Distribution Width 16.2 H, Calcium Level 8.6 L CHAYITO RAMOS MD March 09, 2017 11:31
[2017-03-09 12:24] LABS: MEAN CORPUSCULAR HGB CONC 29.9 g/dl (32.0-36.5); WHITE BLOOD COUNT 7.1 K/mm3 (4.0-10.0)
[2017-03-09] MEDS ORDERED: metroNIDAZOLE/NACL 500MG(5MG/ML)100 ML BAG (S0030) As Ordered ONE (15:22)
[2017-03-09] MEDS ORDERED: BUPIVACAINE HCL 0.5% 30 ML VIAL As Ordered ONE (16:11)
[2017-03-09] MEDS ORDERED: BUPIVACAINE LIPOSOME/PF 1.3% 20 ML VIAL (13.3MG/ML)(EXPAREL) As Ordered ONE (16:11)
[2017-03-09] MEDS ORDERED: MIDAZOLAM INJ 2 MG/2 ML VIAL (J2250) As Ordered ONE (17:17)
[2017-03-09] MEDS ORDERED: PHENYLephrine HCL 500 MCG/5 ML (100MCG/ML) SYRINGE (J2370) As Ordered ONE (17:17)
[2017-03-09] MEDS ORDERED: fentaNYL 100 MCG/2 ML INJECTION (J3010) As Ordered ONE (17:39)
--- NOTE | 2017-03-09 18:41 | IPN ---
DATE: 03/09/2017 SUBJECTIVE: The patient was seen and examined at the bedside today in the morning. He tolerated the hemodialysis procedure well yesterday. The patient reports that he continues to have rectal bleeding and he is supposed to have colonoscopy done today. REVIEW OF SYSTEMS: The patient denies any fevers, chills, rigors, headache, nausea, vomiting, chest pain, shortness of breath. He does report persistent rectal blood. Rest of review of systems is negative. OBJECTIVE: VITAL SIGNS: Temperature is 98 degrees Fahrenheit, blood pressure is 111/53, pulse is 85, respiratory rate of 18, saturating 97% on room air. INTAKE AND OUTPUT: Urine output today is not recorded. The patient got hemodialysis and ultrafiltration was 2 liters with hemodialysis yesterday. Weight on the bed scale is 81.9 kg. PHYSICAL EXAMINATION: GENERAL: The patient is awake, alert, and oriented times three, laying in bed, in no apparent distress. HEAD AND NECK EXAMINATION: The patient has a squint. Head is normocephalic, atraumatic. Mucous membranes are moist. Neck is supple. There is no jugular venous distention (JVD). CARDIOVASCULAR: S1, S2, regular heart rate. No murmur, rub, or gallop. RESPIRATORY: Chest is clear to auscultation bilaterally. Bilateral equal air entry. No rales or rhonchi. ABDOMEN: Soft. Positive bowel sounds. Nontender. No ascites. No organomegaly. EXTREMITIES: The patient has bilateral below-knee amputations. CENTRAL NERVOUS SYSTEM: No focal neurological deficit. Power is 5/5 in bilateral upper extremities. ARTERIOVENOUS (AV) ACCESS: The patient has a left forearm AV fistula with positive thrill and bruit. LABORATORY REVIEW: CBC showed a WBC of 7.1, hemoglobin 8.4, platelets of 132. BMP showed sodium of 140, potassium 4.6, chloride 102, bicarbonate 29, BUN 21, creatinine is 4.9, calcium is 8.6. CURRENT MEDICATIONS: The patient's medications were all reviewed by me. There is no change in the medications today as compared with yesterday. ASSESSMENT: A 66-year-old male with past medical history of end-stage renal disease on hemodialysis, history of recurrent rectal bleeding secondary to radiation proctitis, hypertension, chronic atrial fibrillation, and diabetes mellitus type 2, admitted this time because of recurrent rectal bleed. PLAN: 1. End-stage renal disease on hemodialysis. The patient's regular days are Wednesday, Wednesday and Wednesday. He was dialyzed yesterday. No urgent need to do hemodialysis today. 2. Rectal bleeding. The patient continues to have rectal bleed. Surgical service is on board. Possible plan to do colonoscopy as reported by the patient. 3. Chronic atrial fibrillation. His heart rate is controlled at this time. Continue current dose of digoxin. He is not on anticoagulation because of history of bleeding. Continue diltiazem 90 mg every eight hours as well. 4. Anemia and end-stage renal disease and secondary to gastrointestinal (GI) bleeding. The patient's hemoglobin is 9 at this time. No urgent need of blood transfusion. The patient got a dose of Aranesp yesterday with hemodialysis as well. Continue to monitor complete blood count (CBC) every eight hours.
[2017-03-09] MEDS ORDERED: fentaNYL 100 MCG/2 ML INJECTION (J3010) IV PRN (19:00)
[2017-03-09] MEDS ORDERED: LR 1,000 ML IV SCH (19:00)
[2017-03-09] MEDS ORDERED: PERCOCET 5MG/325MG TAB PO PRN (19:00)
[2017-03-09] MEDS ORDERED: MEPERIDINE INJ 25 MG/ML VIAL (J2175) IV PRN (19:00)
[2017-03-09] MEDS ORDERED: METOCLOPRAMIDE INJ 10MG/2ML VIAL (J2765) IV PRN (19:00)
[2017-03-09] MEDS ORDERED: ONDANSETRON 4MG/2ML VIAL (J2405) IV PRN (19:00)
[2017-03-09 20:27] LABS: MEAN CORPUSCULAR HGB CONC 30.6 g/dl (32.0-36.5); MEAN CORPUSCULAR VOLUME 88.3 fl (80.0-96.0); RED CELL DISTRIBUTION WIDTH 15.9 % (11.5-14.5); WHITE BLOOD COUNT 6.6 K/mm3 (4.0-10.0)
[2017-03-10] VITALS (7 sets, daily range): BP systolic 96–118; BP diastolic 46–56
[2017-03-10 00:05] LABS: MEAN CORPUSCULAR HEMOGLOBIN 26.7 pg (27.0-33.0); MEAN CORPUSCULAR HGB CONC 30.2 g/dl (32.0-36.5); MEAN CORPUSCULAR VOLUME 88.3 fl (80.0-96.0); WHITE BLOOD COUNT 7.3 K/mm3 (4.0-10.0)
[2017-03-10] MEDS: ACETAMINOPHEN TAB 650MG DOSE (2X325MG) PO PRN ×2 (04:00→16:01)
[2017-03-10 05:55] LABS: MEAN CORPUSCULAR HEMOGLOBIN 27.5 pg (27.0-33.0); MEAN CORPUSCULAR HGB CONC 31.2 g/dl (32.0-36.5); MEAN CORPUSCULAR VOLUME 88.1 fl (80.0-96.0); RED CELL DISTRIBUTION WIDTH 15.8 % (11.5-14.5); WHITE BLOOD COUNT 7.8 K/mm3 (4.0-10.0)
[2017-03-10 06:05] LABS: CALCIUM LEVEL 7.9 MG/DL (8.8-10.2); CREATININE FOR GFR 6.78 MG/DL (0.70-1.30); GLOMERULAR FILTRATION RATE 10.5 (>49); POTASSIUM SERUM 4.6 MEQ/L (3.5-5.1)
[2017-03-10] MEDS: GABAPENTIN 300 MG CAP PO SCH (06:39)
[2017-03-10] MEDS: SODIUM CHLORIDE NASAL 0.65% SPRAY BTL (OCEAN) SCH ×2 (06:39→21:09)
[2017-03-10] MEDS: VITAMIN D 1,000 INTERNATIONAL UNITS TABLET PO SCH (06:39)
[2017-03-10] MEDS ORDERED: SLF 3 ML SYR IV PRN (11:30)
--- NOTE | 2017-03-10 12:32 | IPNPDOC ---
Subjective Date Seen The patient was seen on 03/10/17. Subjective Chief Complaint/HPI The patient is a 66-year-old male admitted with a reason for visit of Gib( Gastrointestinal Bleeding). General: Denies: Chills, Night Sweats Constitutional: Denies: Chills, Fever Eyes: Denies: Pain, Vision change ENT: Denies: Head Aches, Ear Pain Skin: Denies: Rash, Lesions Pulmonary: Denies: Dyspnea, Cough Cardiovascular: Denies: Chest Pain, Palpitations Gastrointestinal: Denies: Nausea, Vomiting Genitourinary: Denies: Dysuria, Frequency Hematologic: Reports: Bleeding Excessively Objective Physical Examination General Exam: Positive: Alert, Cooperative, No Acute Distress ENT Exam: Positive: Atraumatic, Mucous membr. moist/pink Neck Exam: Negative: JVD Chest Exam: Positive: Normal air movement, Diminished Heart Exam: Positive: Rate Normal, Normal S1, Normal S2 Abdomen Exam: Positive: Soft, Negative: Tenderness Extremity Exam: Positive: Other (bilateral below the knee amputations noted) Assessment /Plan Plan/VTE VTE Prophylaxis Ordered?: Yes Plan Recurrent Gastrointestinal bleeding Hgb Stable downward trending 9.0-->8.3 over last 24 hrs Will repeat Hgb this afternoon and transfuse blood products if indicated Blood Pressure Stable stable today Colonoscopy on 02/12/[address] Heath revealed a single shallow solitary ulcer in the distal rectum which was clipped. Dr. Madrigal performed a colonoscopy on 02/28 which revealed a congested and ulcerated mucosa in the distal rectum. This was treated with argon plasma coagulation s/p Rectal Ulcer Biopsy with Plication on 03/[address] Madrigal--Patient states that he has not had any more rectal bleeding since Will continue to monitor the patient's H&H and transfuse accordingly End-stage renal disease on hemodialysis Wednesday, Wednesday, Wednesday. Nephrology on board for Dialysis Atrial fibrillation, controlled The patient is not on anticoagulation 2/2 recurrent GI Bleeding We will hold Cardizem incase the patient becomes hypotensive from GI Bleeding Hx of Diastolic congestive heart failure. Managed by hemodialysis Currently Euvolemic Chronic pain Continue with gabapentin. Vitamin D deficiency Continue with supplementation. Deep venous thrombosis (DVT) prophylaxis. Sequentials, thromboembolism deterrent stockings (TEDs). No pharmacological agents. Disposition: Will cont to work with PFS to further delineate [facility] vs Home w/ Services. VS, I&O, 24H, Fishbone Vital Signs/I&O Vital Signs Date Time Temp Pulse Resp B/P (MAP) Pulse Ox O2 Delivery O2 Flow Rate FiO2 03/10/17 10:00 Room Air 03/10/17 07:43 98.7 93 18 97/46 (63) 96 I&O- Last 24 Hours up to 6 AM 03/10/17 06:00 Intake Total 915 ml Output Total 0 ml Balance 915 ml Laboratory Data 24H LABS Laboratory Tests 2 03/10/17 05:22: Anion Gap 8, Glomerular Filtration Rate 10.5L, Blood Urea Nitrogen 33#H, Creatinine 6.78H, Sodium Level 136, Potassium Level 4.6, Chloride Level 99, Carbon Dioxide Level 29, Calcium Level 7.9L CBC/BMP Laboratory Tests 03/09/17 20:12 Red Blood Count 3.32 L, Mean Corpuscular Volume 88.3, Mean Corpuscular Hemoglobin 27.0, Mean Corpuscular Hemoglobin Concent 30.6 L, Red Cell Distribution Width 15.9 H 03/09/17 23:46 Red Blood Count 3.00 L, Mean Corpuscular Volume 88.3, Mean Corpuscular Hemoglobin 26.7 L, Mean Corpuscular Hemoglobin Concent 30.2 L, Red Cell Distribution Width 16.0 H 03/10/17 05:22 Red Blood Count 3.04 L, Mean Corpuscular Volume 88.1, Mean Corpuscular Hemoglobin 27.5, Mean Corpuscular Hemoglobin Concent 31.2 L, Red Cell Distribution Width 15.8 H, Calcium Level 7.9 L CHAYITO RAMOS MD March 10, 2017 12:32
[2017-03-10] MEDS: SLF 3 ML SYR IV SCH ×2 (15:28→21:09)
[2017-03-11] VITALS (20 sets, daily range): BP systolic 56–135; BP diastolic 28–70
[2017-03-11] MEDS: ACETAMINOPHEN TAB 650MG DOSE (2X325MG) PO PRN (02:01)
[2017-03-11] MEDS: SLF 3 ML SYR IV SCH ×3 (05:02→20:44)
[2017-03-11 06:09] LABS: MEAN CORPUSCULAR HEMOGLOBIN 27.6 pg (27.0-33.0); MEAN CORPUSCULAR HGB CONC 30.6 g/dl (32.0-36.5); MEAN CORPUSCULAR VOLUME 90.1 fl (80.0-96.0); RED CELL DISTRIBUTION WIDTH 15.8 % (11.5-14.5); WHITE BLOOD COUNT 7.5 K/mm3 (4.0-10.0)
--- NOTE | 2017-03-11 06:09 | IPN ---
DATE: 03/10/2017 SUBJECTIVE: Patient was seen and examined at the bedside today in the morning during hemodialysis procedure. Patient was tolerating the hemodialysis procedure well. Last hour events were noted. Patient got examination under anesthesia for bleeding active ulcer and patient reports improvement in the active bleeding. REVIEW OF SYSTEMS: Patient denies any fever, chills, rigors, headache, nausea, vomiting, chest pain, shortness of breath, pain in abdomen, constipation. He reports the active bleeding is improving. Rest of review of system is negative. OBJECTIVE: Vital signs: Temperature is 98.7 degrees Fahrenheit, blood pressure is 97/46, pulse is 93, respiratory rate of 18, saturating 96% on room air. Intake and output: Urine output recorded is 0. Weight on the bed scale is 82.7 kg. PHYSICAL EXAMINATION: General: Patient is awake, alert, oriented times three lying in bed getting hemodialysis done. Neck and neck exam: Patient has a squint. Head is normocephalic and atraumatic. Mucous membranes are moist. Neck is supple. There is no jugular venous distention (JVD). Cardiovascular: S1, S2. Irregular heart rate. No murmur, rub or gallop. Respiratory: Chest is clear to auscultation bilaterally. Bilateral equal air entry. No rales or rhonchi. Abdomen is soft. Positive bowel sounds. Nontender. No ascites. No organomegaly. Extremities: Patient has bilateral below knee amputations. Central nervous system: No focal neurological deficit. Power is 5/5 in bilateral upper extremities. AV access: Patient has a left forearm AV fistula which is being for dialysis. No issues with hemodialysis at this time. LAB REVIEW: CBC showed hemoglobin of 8.3, platelets of 139. BMP showed sodium 136, potassium 4.6, chloride 99, bicarbonate 29, BUN 33, creatinine 6.7, calcium is 7.9. CURRENT MEDICATIONS: Patient's current medications are all reviewed by me. IV fluids have been stopped. His oral pain medications have also been stopped. ASSESSMENT: 66-year-old male with past medical history of end stage renal disease on hemodialysis admitted this time with recurrent rectal bleeding. PLAN: 1. End stage renal disease on hemodialysis. Patient is being dialyzed according to his regular schedule. He gets dialyzed with without heparin because of history of allergy to heparin and rectal bleeding. We shall try to do an ultrafiltration of 2 liter as tolerated by his blood pressure. 2. Rectal bleeding status post examination under anesthesia of the rectal ulcer by Dr. Madrigal yesterday. He denies any more rectal bleeding. Continue hemoglobin and hematocrit monitoring every 8 hours. Transfuse as needed for hemoglobin dropped below 8. 3. Anemia and end stage renal disease and recent blood loss anemia. Hemoglobin is stable. Continue the Aranesp once a week with dialysis. If hemoglobin drops below 8, then he will receive a blood transfusion. 4. Chronic atrial fibrillation. It is currently rate controlled. Continue current dose of digoxin and diltiazem. He is not a candidate for anticoagulation.
[2017-03-11 06:15] LABS: CALCIUM LEVEL 8.1 MG/DL (8.8-10.2); CREATININE FOR GFR 4.38 MG/DL (0.70-1.30); GLOMERULAR FILTRATION RATE 17.4 (>49); POTASSIUM SERUM 3.9 MEQ/L (3.5-5.1)
[2017-03-11] MEDS: VITAMIN D 1,000 INTERNATIONAL UNITS TABLET PO SCH (09:15)
[2017-03-11] MEDS: GABAPENTIN 300 MG CAP PO SCH (09:16)
[2017-03-11] MEDS: SODIUM CHLORIDE NASAL 0.65% SPRAY BTL (OCEAN) SCH ×2 (09:16→20:43)
[2017-03-11] MEDS ORDERED: ISOVUE-300 61% 50ML VIAL (Q9967) As Ordered ONE ×4 (10:08→12:24)
[2017-03-11] MEDS ORDERED: SODIUM BICARBONATE 8.4% INJ 50MEQ 50 ML VIAL As Ordered ONE (10:09)
[2017-03-11] MEDS ORDERED: LIDOCAINE 2% MDV 20 ML VIAL As Ordered ONE (10:09)
[2017-03-11] MEDS ORDERED: fentaNYL 100 MCG/2 ML INJECTION (J3010) As Ordered ONE (10:58)
--- NOTE | 2017-03-11 11:23 | IPNPDOC ---
Subjective Date Seen The patient was seen on 03/11/17. Subjective Chief Complaint/HPI The patient is a 66-year-old male admitted with a reason for visit of Gib( Gastrointestinal Bleeding). General: Denies: Chills, Night Sweats Constitutional: Denies: Chills, Fever Eyes: Denies: Pain, Vision change ENT: Denies: Head Aches, Ear Pain Skin: Denies: Rash, Lesions Pulmonary: Denies: Dyspnea, Cough Cardiovascular: Denies: Chest Pain, Palpitations Gastrointestinal: Denies: Nausea, Vomiting Genitourinary: Denies: Dysuria, Frequency Hematologic: Reports: Bleeding Excessively Objective Physical Examination General Exam: Positive: Alert, Cooperative, No Acute Distress ENT Exam: Positive: Atraumatic, Mucous membr. moist/pink Neck Exam: Negative: JVD Chest Exam: Positive: Normal air movement, Diminished Heart Exam: Positive: Rate Normal, Normal S1, Normal S2 Abdomen Exam: Positive: Soft, Negative: Tenderness Extremity Exam: Positive: Other (bilateral below the knee amputations noted) Assessment /Plan Plan/VTE VTE Prophylaxis Ordered?: Yes Plan Recurrent Gastrointestinal bleeding Hgb Stable dropped down to 7.5 overnight, as the patient did complain of passing 3 large clots and 2 smaller blood clots Transfused 1 Unit of PRBC Blood Pressure continue to be stable, Monitor H&H q8h Colonoscopy on 02/12/[address] Heath revealed a single shallow solitary ulcer in the distal rectum which was clipped. Dr. Madrigal performed a colonoscopy on 02/28 which revealed a congested and ulcerated mucosa in the distal rectum. This was treated with argon plasma coagulation s/p Rectal Ulcer Biopsy with Plication on 03/[address] Madrigal Patient scheduled for Interventional Radiology consultation today for possible vascular embolization of bleeding vessel. End-stage renal disease on hemodialysis Wednesday, Wednesday, Wednesday. Nephrology on board for Dialysis Atrial fibrillation, controlled The patient is not on anticoagulation 2/2 recurrent GI Bleeding We will hold Cardizem incase the patient becomes hypotensive from GI Bleeding Hx of Diastolic congestive heart failure. Managed by hemodialysis Currently Euvolemic Chronic pain Continue with gabapentin. Vitamin D deficiency Continue with supplementation. Deep venous thrombosis (DVT) prophylaxis. Sequentials, thromboembolism deterrent stockings (TEDs). No pharmacological agents. Disposition: Will cont to work with PFS to further delineate [facility] vs Home w/ Services. VS, I&O, 24H, Fishbone Vital Signs/I&O Vital Signs Date Time Temp Pulse Resp B/P (MAP) Pulse Ox O2 Delivery O2 Flow Rate FiO2 03/11/17 09:01 99.2 86 18 111/56 (74) 99 Room Air I&O- Last 24 Hours up to 6 AM 03/11/17 06:00 Intake Total 2341 ml Output Total 2000 ml Balance 341 ml Laboratory Data 24H LABS Laboratory Tests 2 03/11/17 05:35: Anion Gap 7L, Glomerular Filtration Rate 17.4L, Blood Urea Nitrogen 15#, Creatinine 4.38H, Sodium Level 138, Potassium Level 3.9, Chloride Level 102, Carbon Dioxide Level 29, Calcium Level 8.1L CBC/BMP Laboratory Tests 03/10/17 15:48 03/10/17 22:59 03/11/17 05:35 Red Blood Count 2.96 L, Mean Corpuscular Volume 90.1, Mean Corpuscular Hemoglobin 27.6, Mean Corpuscular Hemoglobin Concent 30.6 L, Red Cell Distribution Width 15.8 H, Calcium Level 8.1 L CHAYITO RAMOS MD March 11, 2017 11:23
[2017-03-11] MEDS ORDERED: fentaNYL 100 MCG/2 ML INJECTION (J3010) IV PRN (14:15)
--- NOTE | 2017-03-11 17:40 | REPKIM ---
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 The patient presents for mesenteric and iliac arteriograms, possible embolization. PROCEDURE PERFORMED: 1. Selective superior mesenteric arteriogram 2. Selective inferior mesenteric arteriogram 3. Selective bilateral internal iliac arteriograms 4. Selective right rectal branch of the internal iliac arteriogram and embolization 5. Completion arteriogram INTERVENTIONALIST: Corina Pope MD CONSENT: The risks, benefits and alternatives to the procedure were explained to the patient and his family and informed written consent was obtained. MEDICATIONS: Local Lidocaine, Fentanyl 75 mcg IV CONTRAST: 300mL Isovue 300 EBL: 15 mL for the procedure and at least 100 mL from rectal GI bleeding FLUORO TIME: 51.8 minutes DEVICES USED: 2mm-4mm Interlock coil x2; Lot#[id number] PROCEDURE/FINDINGS: The patient was brought to the interventional suite where a timeout procedure was performed. The patient was placed in the supine position and the right groin prepped and draped in a sterile fashion. A 4-Canadian vascular sheath was introduced into the right common femoral artery using the Seldinger technique with a micropuncture needle, after infiltration of the skin and deep tissues with local anesthetic. Over a guidewire, a 4-Canadian selective catheter was advanced and under fluoroscopy positioned in the abdominal aorta. Selective catheterization of the superior mesenteric artery and inferior artery were performed. Contrast was injected into each of these aforementioned arteries and mesenteric angiograms were performed in the frontal projection. This showed no active extravasation of contrast or pseudoaneurysm noted. 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 Since the rectum has a dual blood supply, selective catheterization of each internal iliac artery was then performed. Contrast was injected and selective bilateral internal iliac arteriograms were performed. This showed no active extravasation of contrast. This also showed at least two foci of small pseudoaneurysm fed via collaterals off the rectal artery of the internal iliac artery with contrast blush noted more so on the right side. Decision was then made to embolize via the right internal iliac artery access. A microcatheter was coaxially introduced and advanced into the rectal with the aid of a 0.018 guidewire. A guidewire was then advanced into the distal rectal artery. Contrast was injected and arteriogram was obtained. This showed pseudoaneurysm and blush. The microcatheter could not be advanced further due to the collateral branches too small. The target vessel was then embolized using gelfoam to stasis followed by two 0.018 2-4mm interlock coils. Completion arteriogram showed near complete stasis of the target vessels. The catheter and vascular sheath were removed. Hemostasis was achieved by manual compression over the puncture site using manual compression. The patient tolerated the procedure well with no immediate complications. This procedure was performed with fluoroscopic guidance. Dr. Pope was present. IMPRESSION: 1. Selective SMA and YANG showed no active extravasation of contrast or pseudoaneurysm. 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 2. Selective bilateral internal iliac arteriograms showed no active extravasation of contrast. This also showed at least two foci of small pseudoaneurysm fed via collaterals off the rectal artery of the internal iliac artery with contrast blush, more so on the right side. 3. Successful embolization of the right rectal branch as discussed above. Findings discussed via phone with Drs. Garcia and Rohan. Continue close observation and supportive care. Please see the report above for all other findings and details. cc: MD Colin Danielson MD [facility]. LAWR[facility] PSYCHIATRIC CENTERIsmael
--- NOTE | 2017-03-11 19:06 | ECGEPIP ---
Stationary ECG Study [facility] Test Date: 2017-03-11 Pat Name: CATHI SEBASTIAN Department: Room: [place] [address] Gender: M Ribber: : 1950 Requested By: CHAYITO RAMOS Order Number: [id number] Reading MD: Jered Zamora Measurements Intervals [place] Rate: 124 P: [place]: 0 QRS: -54 QRSD: 128 T: 123 QT: 345 QTc: 496 Interpretive Statements ATRIAL FIBRILLATION WITH RAPID VENTRICULAR RESPONSE MARKED LEFT AXIS DEVIATION MODERATE INTRAVENTRICULAR CONDUCTION DELAY ST DEVIATION AND MODERATE T-WAVE ABNORMALITY, CONSIDER LATERAL ISCHEMIA COMPARED TO THE LAST 4 TRACINGS IN THE SYSTEM, HEART RATE IS FASTER Electronically Signed On 03-11-2017 19:06:16 EDT by Jered Zamora
[2017-03-11] MEDS ORDERED: NS 500 ML IV ONE (21:25)
--- NOTE | 2017-03-11 23:22 | IPN ---
DATE: 03/11/2017 SUBJECTIVE: The patient was seen and examined at the bedside today in the morning. He is asymptomatic. He reports that he started having blood clots per rectum overnight. The patient dropped hemoglobin. He was given a unit of packed red blood cells transfusion. The patient is nothing by mouth (n.p.o.) at this time. He is pending angiogram by interventional radiology today. REVIEW OF SYSTEMS: The patient denies any fever, chills, rigors, headache, nausea, vomiting, chest pain, shortness of breath or pain in abdomen. He does report rectal bleeding and blood clots. The rest of the review of systems is negative. OBJECTIVE: VITAL SIGNS: Temperature is 99.2 degrees Fahrenheit, blood pressure is 111/56, pulse is 86, respiratory rate of 18, saturating 99% on room air. INTAKE/OUTPUT: Urine output is not recorded. Weight on the bed scale is 80.1 kg. PHYSICAL EXAMINATION: GENERAL: The patient is awake, alert, oriented times three, laying in bed, in no apparent distress. HEAD AND NECK EXAM: The patient has a squint. Head is normocephalic and atraumatic. Mucous membranes are moist. Neck is supple. There is no jugular venous distention (JVD). CARDIOVASCULAR: S1, S2, irregular heart rate. No murmur, rub or gallop. RESPIRATORY: Chest is clear to auscultation bilaterally. Bilateral equal air entry. No rales or rhonchi. ABDOMEN: Abdomen is soft. Positive bowel sounds. Nontender. No ascites. No organomegaly. EXTREMITIES: The patient has bilateral below-knee amputations. CENTRAL NERVOUS SYSTEM: No focal neurological deficit. Power is 5/5 in bilateral upper extremities. AV ACCESS: The patient has a left forearm AV fistula, which is having positive thrill and bruit. LAB REVIEW: CBC showed a WBC of 7.5, hemoglobin is 8.2, platelets of 121. BMP showed sodium 138, potassium 3.9, chloride 102, bicarbonate 29, BUN 15, creatinine is 4.3, calcium is 8.1. CURRENT MEDICATIONS: The patient's medications were all reviewed by me. There is no change in the medication today as compared with yesterday. ASSESSMENT: A 66-year-old male with past medical history of end-stage renal disease on hemodialysis, admitted at this time because of recurrent rectal bleeding. PLAN: 1. End-stage renal disease, on hemodialysis. The patient's regular hemodialysis days are Wednesday, Wednesday, Wednesday. No urgent need of hemodialysis today. 2. Rectal bleeding. Patient with examination under anesthesia of the rectal ulcer; however, he started bleeding again last night. The patient is pending angiogram by interventional radiology for possible embolization of the bleeding vessel. He got one unit of packed red blood cells transfusion yesterday, transfuse as needed for hemoglobin drop below 8. The patient is going to get around 100 mL of contrast. As told by interventional radiology, if the patient remains asymptomatic after the contrast, he will be dialyzed tomorrow morning as per his regular schedule. 3. Anemia secondary to end-stage renal disease and recent blood loss. Continue to monitor CBC every 8 hours and transfuse as needed for hemoglobin below 8. 4. Chronic atrial fibrillation. His heart rate is controlled at this time. Continue current dose of digoxin and diltiazem. He is not a candidate for anticoagulation.
[2017-03-12] VITALS (7 sets, daily range): BP systolic 80–100; BP diastolic 40–54
[2017-03-12] MEDS: ACETAMINOPHEN TAB 650MG DOSE (2X325MG) PO PRN ×2 (01:01→21:08)
[2017-03-12] MEDS: SLF 3 ML SYR IV SCH ×3 (06:09→21:08)
[2017-03-12 07:32] LABS: CALCIUM LEVEL 7.9 MG/DL (8.8-10.2); CREATININE FOR GFR 6.18 MG/DL (0.70-1.30); GLOMERULAR FILTRATION RATE 11.7 (>49); POTASSIUM SERUM 4.4 MEQ/L (3.5-5.1)
[2017-03-12] MEDS: SODIUM CHLORIDE NASAL 0.65% SPRAY BTL (OCEAN) SCH ×3 (09:00→21:08)
[2017-03-12] MEDS ORDERED: ISOVUE-300 61% 50ML VIAL (Q9967) As Ordered ONE (09:04)
[2017-03-12] MEDS ORDERED: fentaNYL 100 MCG/2 ML INJECTION (J3010) As Ordered ONE (09:33)
--- NOTE | 2017-03-12 15:41 | IPNPDOC ---
Subjective Date Seen The patient was seen on 03/12/17. Subjective Chief Complaint/HPI The patient is a 66-year-old male admitted with a reason for visit of Gib( Gastrointestinal Bleeding). General: Denies: Chills, Night Sweats Constitutional: Denies: Chills, Fever Eyes: Denies: Pain, Vision change ENT: Denies: Head Aches, Ear Pain Skin: Denies: Rash, Lesions Pulmonary: Denies: Dyspnea, Cough Cardiovascular: Denies: Chest Pain, Palpitations Gastrointestinal: Denies: Nausea, Vomiting Genitourinary: Denies: Dysuria, Frequency Hematologic: Reports: Bleeding Excessively Objective Physical Examination General Exam: Positive: Alert, Cooperative, No Acute Distress ENT Exam: Positive: Atraumatic, Mucous membr. moist/pink Neck Exam: Negative: JVD Chest Exam: Positive: Normal air movement, Diminished Heart Exam: Positive: Rate Normal, Normal S1, Normal S2 Abdomen Exam: Positive: Soft, Negative: Tenderness Extremity Exam: Positive: Other (bilateral below the knee amputations noted) Assessment /Plan Plan/VTE VTE Prophylaxis Ordered?: Yes Plan Recurrent Gastrointestinal bleeding Hgb Stable and Blood Pressure dropped over night (SBP in the 50s) requiring 3 more units of PRBC's Transfused 5 Unit(s) of PRBC total since admission Blood Pressure continue to be stable Colonoscopy on 02/12/[address] Heath revealed a single shallow solitary ulcer in the distal rectum which was clipped. Dr. Madrigal performed a colonoscopy on 02/28 which revealed a congested and ulcerated mucosa in the distal rectum. This was treated with argon plasma coagulation s/p Rectal Ulcer Biopsy with Plication on 03/[address] Madrigal Intravascular Angiogram Embolization performed by IR on 03/11/17 Intravascular Angiogram Embolization performed by IR on opposite vessel branch on 03/12/17 I spoke at length with the patient and his at the bedside today regarding further options of treatment for rectal bleeding and the need for colorectal evaluation if the aforementioned intravascular angiogram embolization procedure is not successful. At this time, the patient and his state that they do not want to be transferred to another hospital for any kind of surgical intervention because they do not want major surgery or any operation that would result in an ostomy bag placement. At this time we will continue to monitor the patient's hemoglobin levels serially and transfuse if needed End-stage renal disease on hemodialysis Wednesday, Wednesday, Wednesday. Nephrology on board for Dialysis Atrial fibrillation, controlled The patient is not on anticoagulation 2/2 recurrent GI Bleeding We will hold Cardizem incase the patient becomes hypotensive from GI Bleeding Hx of Diastolic congestive heart failure. Managed by hemodialysis Currently Euvolemic Chronic pain Continue with gabapentin. Vitamin D deficiency Continue with supplementation. Deep venous thrombosis (DVT) prophylaxis. Sequentials, thromboembolism deterrent stockings (TEDs). No pharmacological agents. CODE STATUS-I did have an extensive discussion with the patient and his at the bedside again today and explained to them the patient's extremely guarded prognosis at this time, and poor long-term prognosis given his multiple medical comorbidities including end-stage renal disease on hemodialysis, coronary artery disease, peripheral vascular disease resulting in bilateral below the knee amputations, and recurrent GI bleeding. At this time, the patient has stated that he would like to be full code. Disposition: Will cont to work with PFS to further delineate S[facility] vs Home w/ Services once the patient is medically optimized. VS, [facility]&O[facility] Vital Signs/I&O Vital Signs Date Time Temp Pulse Resp B/P (MAP) Pulse Ox O2 Delivery O2 Flow Rate FiO2 03/12/17 09:00 Room Air 03/12/17 08:00 98.0 91 18 100/49 (66) 97 I&O- Last 24 Hours up to 6 AM 03/12/17 05:59 Intake Total 1563 ml Balance 1563 ml Laboratory Data 24H LABS Laboratory Tests 2 03/12/17 06:36: Anion Gap 9, Glomerular Filtration Rate 11.7L, Blood Urea Nitrogen 22H, Creatinine 6.18H, Sodium Level 138, Potassium Level 4.4, Chloride Level 102, Carbon Dioxide Level 27, Calcium Level 7.9L CBC/BMP Laboratory Tests 03/11/17 21:59 03/12/17 06:36 Calcium Level 7.9 L 03/12/17 14:21 CHAYITO RAMOS MD March 12, 2017 15:41
--- NOTE | 2017-03-12 16:02 | REPKIM ---
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 The patient presents for selective left internal iliac/rectal arteriograms possible embolization. PROCEDURE PERFORMED: 1. Selective left internal iliac arteriogram 2. Selective left rectal branch of the internal iliac arteriogram and embolization 3. Completion arteriogram INTERVENTIONALIST: Corina Pope MD CONSENT: The risks, benefits and alternatives to the procedure were explained to the patient and his family and informed written consent was obtained. MEDICATIONS: Local Lidocaine, Fentanyl 25 mcg IV CONTRAST: 94 mL Isovue 300 EBL: 20 mL FLUORO TIME: 36 minutes DEVICES USED: 2mm-5mm Interlock coil x2; Lot#[id number] and 2-6mm Interlock coil x 2 Lot#[id number] PROCEDURE/FINDINGS: The patient was brought to the interventional suite where a timeout procedure was performed. The patient was placed in the supine position and the right groin prepped and draped in a sterile fashion. A 4-Lao vascular sheath was introduced into the right common femoral artery using the Seldinger technique with a micropuncture needle, after infiltration of the skin and deep tissues with local anesthetic. Over a guidewire, a 4-Lao selective catheter was advanced and under fluoroscopy positioned in the left internal iliac artery. Contrast was injected and selective left internal iliac arteriogram was performed in the frontal projection. This showed no active extravasation of contrast. This also showed reconstitution of small pseudoaneurysm and blush region fed via collaterals off the rectal artery branches of the left internal iliac artery. A microcatheter was coaxially introduced and advanced into the rectal artery branch with the aid of a 0.018 guidewire. A guidewire was then advanced into the distal rectal artery. Contrast was injected and arteriogram was obtained. The microcatheter was then advanced as far as the distal rectal branch. The target rectal branch vessels were then embolized using gelfoam to stasis followed by four 0.018 2-6mm interlock coils. Completion arteriogram showed near stasis of the target vessels. The catheter and vascular sheath were removed. Hemostasis was achieved by manual compression over the puncture site using manual compression. The patient tolerated the procedure well with no immediate complications. This procedure was performed with fluoroscopic guidance. Dr. Pope was present. IMPRESSION: 1. Selective left internal iliac arteriogram demonstrates no active extravasation of contrast. There is reconstitution of small pseudoaneurysm and blush region in the rectum fed via collaterals off the rectal artery branches of the left internal iliac artery. 2. Successful embolization of the left rectal branches using a combination of gelfoam and coils as discussed above. Findings discussed via phone with Dr. Garcia. Continue close observation and supportive care. Dialysis is planned today. Please see the report above for all other findings and details. cc: MD Colin Danielson MD MTDD
[2017-03-12] MEDS: VITAMIN D 1,000 INTERNATIONAL UNITS TABLET PO SCH (18:09)
[2017-03-12] MEDS: GABAPENTIN 300 MG CAP PO SCH (18:09)
--- NOTE | 2017-03-12 21:59 | IPN ---
DATE: 03/12/2017 SUBJECTIVE: The patient was seen and examined at the bedside today morning. The patient reports that he is still having mild amount of rectal bleeding. Last 24-hour events were noted. The patient got angiogram done yesterday, and he got embolization of the right-sided rectal vessels yesterday. Today is patient's regular day of dialysis. The patient is going for a repeat angiogram today by interventional radiology. REVIEW OF SYSTEMS: The patient denies any fevers, chills, rigors, headaches, nausea, vomiting, chest pain, shortness of breath. The patient is complaining of weakness, and he reports his blood pressure was low yesterday and he was given intravenous (IV) fluids. Rest of review of systems is negative. OBJECTIVE: VITAL SIGNS: Temperature is 98 degrees Fahrenheit. Blood pressure is 100/49, pulse is 91, respiratory rate of 18, saturating 97% on room air. INTAKE AND OUTPUT: Urine output is not recorded. Weight in the bed scale is 81.5 kg today. PHYSICAL EXAMINATION: GENERAL: The patient is awake, alert, oriented times three, lying in bed in no apparent distress. HEAD/NECK: The patient has a squint. Head is normocephalic, atraumatic. Mucous membranes are moist. Neck is supple. There is no jugular venous distention (JVD). CARDIOVASCULAR: S1, S2. Irregular heart rate. No murmur, rub, or gallop. RESPIRATORY: Chest is clear to auscultation bilaterally. Bilateral equal air entry. No rales or rhonchi. ABDOMEN: Soft. Positive bowel sounds. Nontender. No ascites. No organomegaly. EXTREMITIES: The patient has bilateral below-knee amputation. CENTRAL NERVOUS SYSTEM (DIRECTOR OF SCIENTIFIC RESEARCH): No focal neurological deficits. Power is 5/5 in bilateral upper extremities. ARTERIOVENOUS (AV) ACCESS: The patient has a left forearm AV fistula which has positive thrill and bruit. LABORATORY DATA: CBC showed WBC of 7.5, hemoglobin 9.9 at this time. Hemoglobin is 30.2. BMP showed sodium 138, potassium 4.4, chloride 102, bicarbonate 27, BUN 22, creatinine 6.1, calcium 7.9. IMAGING: The patient got angiogram done yesterday, and he got right rectal branch of the internal iliac artery embolization. CURRENT MEDICATIONS: The patient's medications were all reviewed by me. There is no change in the medications today as compared with yesterday. The patient was given a bolus of normal saline 500 mL yesterday at nighttime. ASSESSMENT: A 66-year-old male with past medical history of end-stage renal disease on hemodialysis, admitted this time because of recurrent rectal bleeding. PLAN: 1. End-stage renal disease on hemodialysis. Today is patient's regular hemodialysis day. However, the patient is going for a repeat angiogram. The patient is going to get a lot of contrast with the angiogram, so we shall dialyze the patient after the procedure today in the afternoon. 2. Rectal bleeding. The patient is getting as-needed packed red blood cells (PRBC) transfusions. He got the embolization of the right rectal branches. He is going for a repeat embolization today again. Continue to monitor complete blood count (CBC) every eight hours, transfuse as needed for hemoglobin below eight. 3. Blood loss anemia and anemia of end-stage renal disease. He is getting as needed blood transfusions, and I am also giving him Aranesp 200 mcg intravenous (IV) with hemodialysis once a week. 4. Chronic atrial fibrillation. Heart rate is controlled at this time. The patient was on digoxin every Wednesday, Wednesday, Wednesday, and diltiazem. I see that the diltiazem is on hold, most likely might have been secondary to hypotension. He is not a candidate for anticoagulation. Management of atrial fibrillation is as per primary team.
[2017-03-12] MEDS ORDERED: POLYVINYL ALCOHOL OPHTH SOLN 15 ML(LIQUITEARS) OU ONE (22:00)
[2017-03-12] MEDS ORDERED: NS 500 ML IV ONE (23:45)
[2017-03-13 01:00] VITALS: BP 100/38
[2017-03-13 04:00] VITALS: BP 102/38
[2017-03-13 06:15] LABS: CALCIUM LEVEL 7.7 MG/DL (8.8-10.2); CREATININE FOR GFR 4.31 MG/DL (0.70-1.30); GLOMERULAR FILTRATION RATE 17.8 (>49); POTASSIUM SERUM 3.9 MEQ/L (3.5-5.1)
[2017-03-13] MEDS: ACETAMINOPHEN TAB 650MG DOSE (2X325MG) PO PRN (06:41)
[2017-03-13] MEDS: SLF 3 ML SYR IV SCH ×2 (06:41→13:46)
[2017-03-13 08:00] VITALS: BP 88/42
[2017-03-13 08:32] LABS: MEAN CORPUSCULAR HEMOGLOBIN 28.2 pg (27.0-33.0); MEAN CORPUSCULAR HGB CONC 31.4 g/dl (32.0-36.5); MEAN CORPUSCULAR VOLUME 89.8 fl (80.0-96.0); RED CELL DISTRIBUTION WIDTH 17.3 % (11.5-14.5); WHITE BLOOD COUNT 10.7 K/mm3 (4.0-10.0)
[2017-03-13] MEDS: GABAPENTIN 300 MG CAP PO SCH (08:49)
[2017-03-13] MEDS: VITAMIN D 1,000 INTERNATIONAL UNITS TABLET PO SCH (08:49)
[2017-03-13] MEDS: SODIUM CHLORIDE NASAL 0.65% SPRAY BTL (OCEAN) SCH ×2 (08:49→20:09)
[2017-03-13 12:00] VITALS: BP 118/51
--- NOTE | 2017-03-13 12:04 | IPNPDOC ---
Subjective Date Seen The patient was seen on 03/13/17. Subjective Chief Complaint/HPI The patient is a 66-year-old male admitted with a reason for visit of Gib( Gastrointestinal Bleeding). General: Denies: Chills, Night Sweats Constitutional: Denies: Chills, Fever Eyes: Denies: Pain, Vision change ENT: Denies: Head Aches, Ear Pain Skin: Denies: Rash, Lesions Pulmonary: Denies: Dyspnea, Cough Cardiovascular: Denies: Chest Pain, Palpitations Gastrointestinal: Denies: Nausea, Vomiting Genitourinary: Denies: Dysuria, Frequency Hematologic: Reports: Bleeding Excessively (per rectum) Objective Physical Examination General Exam: Positive: Alert, Cooperative, No Acute Distress ENT Exam: Positive: Atraumatic, Mucous membr. moist/pink Neck Exam: Negative: JVD Chest Exam: Positive: Normal air movement, Diminished Heart Exam: Positive: Rate Normal, Normal S1, Normal S2 Abdomen Exam: Positive: Soft, Negative: Tenderness Extremity Exam: Positive: Other (bilateral below the knee amputations noted) Skin Exam: Positive: Other skin issue (Right Groin area where angiogram catheter placed noted to be clean, dry, and intact with no swelling, erythema, or tenderness to palpation) Assessment /Plan Plan/VTE VTE Prophylaxis Ordered?: Yes Plan Recurrent Gastrointestinal bleeding Patient with only a smear of blood noted in stool over night Hgb stable at 9.2 this morning Transfused 5 Unit(s) of PRBC total since admission Colonoscopy on 02/12/[address] Heath revealed a single shallow solitary ulcer in the distal rectum which was clipped. Dr. Madrigal performed a colonoscopy on 02/28 which revealed a congested and ulcerated mucosa in the distal rectum. This was treated with argon plasma coagulation s/p Rectal Ulcer Biopsy with Plication on 03/[address] Madrigal Intravascular Angiogram Embolization performed on Right Rectal Branch by IR on Intravascular Angiogram Embolization performed by IR on Left Rectal Branch with gelfoam and coils on 03/12/17 I spoke at length with the patient and his at the bedside on 03/12/17 regarding further options of treatment for rectal bleeding and the need for colorectal evaluation if the aforementioned intravascular angiogram embolization procedure is not successful. At this time, the patient and his state that they do not want to be transferred to another hospital for any kind of surgical intervention because they do not want major surgery or any operation that would result in an ostomy bag placement. At this time we will continue to monitor the patient's hemoglobin levels serially and transfuse if needed We will continue to monitor the patient's hemodynamic status End-stage renal disease on hemodialysis Wednesday, Wednesday, Wednesday. Nephrology on board for Dialysis Atrial fibrillation, controlled The patient is not on anticoagulation 2/2 recurrent GI Bleeding We will hold Cardizem incase the patient becomes hypotensive from GI Bleeding Hx of Diastolic congestive heart failure. Managed by hemodialysis Currently Euvolemic Chronic pain Continue with gabapentin. Vitamin D deficiency Continue with supplementation. Deep venous thrombosis (DVT) prophylaxis. Sequentials, thromboembolism deterrent stockings (TEDs). No pharmacological agents. CODE STATUS-I did have an extensive discussion with the patient and his at the bedside and explained to them the patient's extremely guarded prognosis at this time, and poor long-term prognosis given his multiple medical comorbidities including end-stage renal disease on hemodialysis, coronary artery disease, peripheral vascular disease resulting in bilateral below the knee amputations, and recurrent GI bleeding which make him a high risk candidate for surgery even if he was amenable to it. At this time, the patient has stated that he would like to be full code. Disposition: Will cont to work with PFS to further delineate S[facility] vs Home w/ Services once the patient is medically optimized. [facility] Vital Signs/I&O Vital Signs Date Time Temp Pulse Resp B/P (MAP) Pulse Ox O2 Delivery O2 Flow Rate FiO2 03/13/17 08:52 Room Air 03/13/17 04:00 99.0 126 20 102/38 (59) 98 I&O- Last 24 Hours up to 6 AM 03/13/17 05:59 Intake Total 365 ml Output Total 1000 ml Balance -635 ml Laboratory Data 24H LABS Laboratory Tests 2 03/13/17 05:07: Anion Gap 9, Glomerular Filtration Rate 17.8L, Blood Urea Nitrogen 13, Creatinine 4.31H, Sodium Level 139, Potassium Level 3.9, Chloride Level 106, Carbon Dioxide Level 24, Calcium Level 7.7L CBC/BMP Laboratory Tests 03/12/17 14:21 03/12/17 21:59 03/13/17 05:07 Red Blood Count 3.25 L, Mean Corpuscular Volume 89.8, Mean Corpuscular Hemoglobin 28.2, Mean Corpuscular Hemoglobin Concent 31.4 L, Red Cell Distribution Width 17.3 H, Calcium Level 7.7 L CHAYITO RAMOS MD March 13, 2017 12:03
[2017-03-13 16:00] VITALS: BP 103/51
--- NOTE | 2017-03-13 17:38 | IPN ---
DATE: 03/13/2017 Mr. Fernandez is seen this morning on his bedside. He is feeling well and reports only minimal amount of blood in his stools. He denies any nausea, vomiting, dyspnea or chest pain. He underwent embolization of his rectal arteries last week by interventional radiology. PHYSICAL EXAMINATION: Temperature 97.2 degrees Fahrenheit, heart rate 103 per minute and respiratory rate 19 per minute. Blood pressure 118/51 mmHg and oxygen saturation 97% on room air. Head is atraumatic. Pupils equal and reactive to light and sclera is anicteric. Ears, nose and throat are unremarkable. He is edentulous and without any thrush or ulcers. Neck is supple and without jugular venous distention (JVD) or thyroid enlargement. Heart sounds are tachycardiac and lungs clear to auscultation. Abdomen is soft and nontender and bowel sounds are normal. Extremities have no cyanosis or clubbing. He has bilateral [id number] amputations. Today's labs show hemoglobin 9.2 and hematocrit 29.2. Sodium 139, potassium 3.9. BUN 13 and creatinine 4.31. PROBLEMS: 1. 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 His bleeding is only minimal and hematocrit has been stable. There is no need for a transfusion at this point. 2. End-stage renal disease. The patient was dialyzed yesterday and next dialysis will be scheduled for Wednesday. 3. History of pleural effusion and congestive heart failure. Volume status is reasonably well-compensated. The patient remains on oral fluid restriction of 1500 mL per day. 4. Blood loss anemia. His anemia is stable, and we will treat him with intravenous Venofer and Aranesp during hemodialysis. No indication for transfusion at this point.
--- NOTE | 2017-03-13 18:56 | DS.PDOC ---
Discharge Summary General Date of Admission March 08, 2017 at 10:14 Date of Discharge 03/13/17 Specialist/Consultants Involve Dr. Madrigal of General Surgery, Dr. Pope of Interventional Radiology, Dr. Jean-Baptiste of Nephrology Discharge Summary PROCEDURES PERFORMED DURING STAY: Colonoscopy with Rectal ulcer biopsy with plication and deep suturing. Superior and inferior mesenteric artery angiogram with embolization of rectal vessels. ADMITTING DIAGNOSES: 1. . Recurrent GI bleed 2/2 Distal Rectal Ulcer 2. . End-stage renal disease on hemodialysis Mondays, Wednesdays, Fridays 3. . CAD, PVD status post below the knee amputations bilaterally DISCHARGE DIAGNOSES: 1. . Recurrent GI bleed 2/2 Distal Rectal Ulcer 2. . End-stage renal disease on hemodialysis Mondays, Wednesdays, Fridays 3. . CAD, PVD status post below the knee amputations bilaterally COMPLICATIONS/CHIEF COMPLAINT: Gib(Gastrointestinal Bleeding). HISTORY OF PRESENT ILLNESS: . 66-year-old male with past medical history of end-stage renal disease on hemodialysis every Wednesday, Wednesday, and Wednesday, History of recurrent GI bleeding, atrial fibrillation not on anticoagulation because of aforementioned recurrent GI bleeding, peripheral vascular disease status post bilateral BKA, prostate cancer status post radiation therapy, diastolic congestive heart failure, pulmonary hypertension, moderate to severe aortic stenosis, and GERD presented to the ER from the [facility] with a chief complaint of maroon-colored stool starting last night. Of note, the patient was admitted twice just last month for recurrent GI bleeding. During his initial admit for GI bleeding he did have a colonoscopy done by Dr. Heath which revealed a single shallow solitary ulcer in the distal rectum which was clipped. Following this event the patient returned to the hospital 2 weeks later for a recurrent episode of GI bleeding, at which time Dr. Madrigal performed a colonoscopy on which revealed a congested and ulcerated mucosa in the distal rectum. This was treated with argon plasma coagulation. 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 At this time, the patient denies any acute complaints of fevers, chills , chest pain, palpitations, shortness of breath, abdominal pain, or any nausea/ vomiting/diarrhea.In the ER, the patient was noted to be hemodynamically stable with a hemoglobin of 10.3. The patient will be admitted under the hospitalist service for further evaluation and management of lower GI bleeding. During hospitalization here, the patient had recurrent episodes of GI bleeding requiring a total of 6 units of packed red blood cells despite multiple interventions during this admission. The patient had a Rectal Ulcer Biopsy with Plication performed on 03/[address] Madrigal. GI Bleeding persisted after this intervention and interventional radiology was consulted. He had an intravascular angiogram embolization performed on the Right Rectal Branch by IR on 03/11/17. The next day an intravascular angiogram embolization was performed by IR on the Left Rectal Branch with gelfoam and coils on 03/12/17. The patient continued to have rectal bleeding following these interventions and our general surgery team has recommended a transfer to a tertiary center for a colorectal surgery evaluation for possible rectal ulcer resection with permanent colostomy , or transanal excision. At this time the patient's hgb is 8.6 as of 2pm on , and he remains relatively hemodynamically stable. I will transfuse him 1 unit of PRBC's in preparation for his transfer to [facility], where Dr. De La Rosa has accepted the patient. DISCHARGE MEDICATIONS: Please see below. ALLERGIES: Please see below. PHYSICAL EXAMINATION ON DISCHARGE: VITAL SIGNS: Please see below. General Exam: Positive: Alert, Cooperative, No Acute Distress ENT Exam: Positive: Atraumatic, Mucous membr. moist/pink Neck Exam: Negative: JVD Chest Exam: Positive: Normal air movement, Diminished Heart Exam: Positive: Rate Normal, Normal S1, Normal S2 Abdomen Exam: Positive: Soft, Negative: Tenderness Extremity Exam: Positive: Other (bilateral below the knee amputations noted) Skin Exam: Positive: Other skin issue (Right Groin area where angiogram catheter placed noted to be clean, dry, and intact with no swelling, erythema, or tenderness to palpation) LABORATORY DATA: Please see below. 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 The patient presents for mesenteric and iliac arteriograms, possible embolization. PROCEDURE PERFORMED: 1. Selective superior mesenteric arteriogram 2. Selective inferior mesenteric arteriogram 3. Selective bilateral internal iliac arteriograms 4. Selective right rectal branch of the internal iliac arteriogram and embolization 5. Completion arteriogram INTERVENTIONALIST: Corina Pope MD CONSENT: The risks, benefits and alternatives to the procedure were explained to the patient and his family and informed written consent was obtained. MEDICATIONS: Local Lidocaine, Fentanyl 75 mcg IV CONTRAST: 300mL Isovue 300 EBL: 15 mL for the procedure and at least 100 mL from rectal GI bleeding FLUORO TIME: 51.8 minutes DEVICES USED: 2mm-4mm Interlock coil x2; Lot#[id number] PROCEDURE/FINDINGS: The patient was brought to the interventional suite where a timeout procedure was performed. The patient was placed in the supine position and the right groin prepped and draped in a sterile fashion. A 4-Urdu vascular sheath was introduced into the right common femoral artery using the Seldinger technique with a micropuncture needle, after infiltration of the skin and deep tissues with local anesthetic. Over a guidewire, a 4-Urdu selective catheter was advanced and under fluoroscopy positioned in the abdominal aorta. Selective catheterization of the superior mesenteric artery and inferior artery were performed. Contrast was injected into each of these aforementioned arteries and mesenteric angiograms were performed in the frontal projection. This showed no active extravasation of contrast or pseudoaneurysm noted. 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 Since the rectum has a dual blood supply, selective catheterization of each internal iliac artery was then performed. Contrast was injected and selective bilateral internal iliac arteriograms were performed. This showed no active extravasation of contrast. This also showed at least two foci of small pseudoaneurysm fed via collaterals off the rectal artery of the internal iliac artery with contrast blush noted more so on the right side. Decision was then made to embolize via the right internal iliac artery access. A microcatheter was coaxially introduced and advanced into the rectal with the aid of a 0.018 guidewire. A guidewire was then advanced into the distal rectal artery. Contrast was injected and arteriogram was obtained. This showed pseudoaneurysm and blush. The microcatheter could not be advanced further due to the collateral branches too small. The target vessel was then embolized using gelfoam to stasis followed by two 0.018 2-4mm interlock coils. Completion arteriogram showed near complete stasis of the target vessels. The catheter and vascular sheath were removed. Hemostasis was achieved by manual compression over the puncture site using manual compression. The patient tolerated the procedure well with no immediate complications. This procedure was performed with fluoroscopic guidance. Dr. Pope was present. IMPRESSION: 1. Selective SMA and YANG showed no active extravasation of contrast or pseudoaneurysm. 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 2. Selective bilateral internal iliac arteriograms showed no active extravasation of contrast. This also showed at least two foci of small pseudoaneurysm fed via collaterals off the rectal artery of the internal iliac artery with contrast blush, more so on the right side. 3. Successful embolization of the right rectal branch as discussed above. 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 The patient presents for selective left internal iliac/rectal arteriograms possible embolization. PROCEDURE PERFORMED: 1. Selective left internal iliac arteriogram 2. Selective left rectal branch of the internal iliac arteriogram and embolization 3. Completion arteriogram INTERVENTIONALIST: Corina Pope MD CONSENT: The risks, benefits and alternatives to the procedure were explained to the patient and his family and informed written consent was obtained. MEDICATIONS: Local Lidocaine, Fentanyl 25 mcg IV CONTRAST: 94 mL Isovue 300 EBL: 20 mL FLUORO TIME: 36 minutes DEVICES USED: 2mm-5mm Interlock coil x2; Lot#[id number] and 2-6mm Interlock coil x 2 Lot#[id number] PROCEDURE/FINDINGS: The patient was brought to the interventional suite where a timeout procedure was performed. The patient was placed in the supine position and the right groin prepped and draped in a sterile fashion. A 4-Urdu vascular sheath was introduced into the right common femoral artery using the Seldinger technique with a micropuncture needle, after infiltration of the skin and deep tissues with local anesthetic. Over a guidewire, a 4-Urdu selective catheter was advanced and under fluoroscopy positioned in the left internal iliac artery. Contrast was injected and selective left internal iliac arteriogram was performed in the frontal projection. This showed no active extravasation of contrast. This also showed reconstitution of small pseudoaneurysm and blush region fed via collaterals off the rectal artery branches of the left internal iliac artery. A microcatheter was coaxially introduced and advanced into the rectal artery branch with the aid of a 0.018 guidewire. A guidewire was then advanced into the distal rectal artery. Contrast was injected and arteriogram was obtained. The microcatheter was then advanced as far as the distal rectal branch. The target rectal branch vessels were then embolized using gelfoam to stasis followed by four 0.018 2-6mm interlock coils. Completion arteriogram showed near stasis of the target vessels. The catheter and vascular sheath were removed. Hemostasis was achieved by manual compression over the puncture site using manual compression. The patient tolerated the procedure well with no immediate complications. This procedure was performed with fluoroscopic guidance. Dr. Pope was present. IMPRESSION: 1. Selective left internal iliac arteriogram demonstrates no active extravasation of contrast. There is reconstitution of small pseudoaneurysm and blush region in the rectum fed via collaterals off the rectal artery branches of the left internal iliac artery. 2. Successful embolization of the left rectal branches using a combination of gelfoam and coils as discussed above. PROGNOSIS: Prognosis extremely guarded at this time, poor long-term medical prognosis. ACTIVITY: As tolerated. DIET: . Renal diet DISCHARGE PLAN: Transfer to [facility] DISPOSITION: . DISCHARGE INSTRUCTIONS: 1. . Follow-up with colorectal surgeon Dr. De La Rosa at [facility] ITEMS TO FOLLOWUP ON ON OUTPATIENT: 1. . Follow-up with primary care physician within 1-2 weeks after discharge from the hospital 2. . Follow-up with nephrology for outpatient dialysis after discharge from the hospital DISCHARGE CONDITION: Guarded TIME SPENT ON DISCHARGE: Greater than 30 minutes. Vital Signs/I&Os Vital Signs Date Time Temp Pulse Resp B/P (MAP) Pulse Ox O2 Delivery O2 Flow Rate FiO2 03/13/17 16:00 98.6 102 19 103/51 (68) 99 Room Air I&O- Last 24 Hours up to 6 AM 03/13/17 05:59 Intake Total 365 ml Output Total 1000 ml Balance -635 ml Laboratory Data Labs 24H Laboratory Tests 2 03/13/17 05:07: Anion Gap 9, Glomerular Filtration Rate 17.8L, Blood Urea Nitrogen 13, Creatinine 4.31H, Sodium Level 139, Potassium Level 3.9, Chloride Level 106, Carbon Dioxide Level 24, Calcium Level 7.7L CBC/BMP Laboratory Tests 03/12/17 21:59 03/13/17 05:07 Red Blood Count 3.25 L, Mean Corpuscular Volume 89.8, Mean Corpuscular Hemoglobin 28.2, Mean Corpuscular Hemoglobin Concent 31.4 L, Red Cell Distribution Width 17.3 H, Calcium Level 7.7 L 03/13/17 13:46 Discharge Medications Scheduled Cholecalciferol (Vitamin D3) 1,000 Unit Cap, 1,000 UNIT PO QAM, (Reported) GIVE AT 0500 Digoxin (Digoxin) 0.125 Mg Tab, 0.125 MG PO 3XW, (Reported) GIVEN @ 0500 ON MON, WED, WED Gabapentin (Gabapentin) 300 Mg Cap, 300 MG PO QAM, (Reported) GIVE AT 0500 Scheduled PRN Acetaminophen (Acetaminophen) 325 Mg Tab, 650 MG PO Q4H PRN for PAIN, (Reported) Docusate Sodium (Docusate Sodium) 100 Mg Cap, 100 MG PO TID PRN for CONSTIPATION , (Reported) Allergies Coded Allergies: Penicillins (Verified Allergy, Mild, RASH, 03/08/17) Heparin (Verified Adverse Reaction, Severe, HIT - 09/2016, 03/08/17) CHAYITO RAMOS MD March 13, 2017 18:56
[2017-03-13 20:00] VITALS: BP 105/55
--- NOTE | 2017-03-30 10:57 | RO ---
DATE OF PROCEDURE: 03/09/2017 PREPROCEDURE DIAGNOSIS: Recurrent rectal bleeding. POSTPROCEDURE DIAGNOSIS: Recurrent rectal bleeding secondary to distal rectal ulcer. PROCEDURE PERFORMED: Exam under anesthesia, suture plication of bleeding of distal rectal ulcer with oversewing of bleeding points and fulguration of the bleeding mucosa. SURGEON: Colin Madrigal MD GOLD LETTERER: ANESTHESIA: Spinal anesthesia. ESTIMATED BLOOD LOSS: Less than 10 mL. COMPLICATIONS: None. REMARKS: The patient tolerated the procedure well. PROCEDURE NOTE: Mr. Fernandez is a 66-year-old gentleman with multiple medical problems, including severe coronary artery disease and peripheral vascular disease, history of prostate cancer with radiation, who has been having recurrent rectal bleeding. During his last admission, I did flexible sigmoidoscopy and found multiple bleeding points around the distal rectal ulcer. He is brought today after presenting with recurrent rectal bleeding. He was brought to the operating room. Spinal anesthesia given. He was placed on a prone jackknife position. His anal verge was prepped and draped in usual sterile fashion. After surgical time-out, we began our surgery. A univalve anal speculum was placed and the rectum was examined circumferentially. About 3 x 5 flat ulcer with fibrin covering the area was noted. The bleeding point seems to be coming from the edges of the ulcer. I could not find any visible vessels over or around the area. This was located anteriorly and to the right. Initial attempt of trying to lift the mucosa shows that this was well adhered to the underlying sphincter muscles. Thus, excision is not possible. I initially used Bovie cautery to cauterize the bleeding points, but there continues to be bleeding over the area. I injected this with 1% lidocaine with epinephrine with only temporary bleeding. I placed a couple of stitches over the area after getting biopsy of a portion of the ulcer and sent this to pathology. This was then packed temporarily. After removal of the packing, the bleeding points seems to have stopped at this point. The patients was placed back in a supine position and awakened and brought to recovery room stable.
== END 2017-03-13 21:32 | disposition short-term general hospital (02) | DRG 347 ==
LOC: M ED 07:23 → M ED INP 10:14 → M PCU 13:56
PROVIDERS: ADMIT Internal Medicine; ATTEND Internal Medicine
PROC: 0DV Gastrointestinal System, Restriction (ICD-10-PCS; 2017-03-09)
PROC: 30233N1 Transfusion of Nonautologous Red Blood Cells into Peripheral Vein, Percutaneous Approach (ICD-10-PCS; principal; 2017-03-11)
PROC: 04LE3DZ Occlusion of Right Internal Iliac Artery with Intraluminal Device, Percutaneous Approach (ICD-10-PCS; 2017-03-11)
PROC: B41 Imaging, Lower Arteries, Fluoroscopy (ICD-10-PCS; 2017-03-11)
PROC: B41 Imaging, Lower Arteries, Fluoroscopy (ICD-10-PCS; 2017-03-11)
PROC: B41 Imaging, Lower Arteries, Fluoroscopy (ICD-10-PCS; 2017-03-11)
PROC: B41F0ZZ Fluoroscopy of Right Lower Extremity Arteries using High Osmolar Contrast (ICD-10-PCS; 2017-03-11)
PROC: B41G0ZZ Fluoroscopy of Left Lower Extremity Arteries using High Osmolar Contrast (ICD-10-PCS; 2017-03-11)
PROC: 04LF3DZ Occlusion of Left Internal Iliac Artery with Intraluminal Device, Percutaneous Approach (ICD-10-PCS; 2017-03-12)
DX: K62.6 Ulcer of anus and rectum (principal); N18.6 End stage renal disease; K92.2 Gastrointestinal hemorrhage, unspecified; I50.32 Chronic diastolic (congestive) heart failure; N25.81 Secondary hyperparathyroidism of renal origin; E55.9 Vitamin D deficiency, unspecified; I25.10 Atherosclerotic heart disease of native coronary artery without angina pectoris; I48.91 Unspecified atrial fibrillation; I73.9 Peripheral vascular disease, unspecified; I35.0 Nonrheumatic aortic (valve) stenosis; K21.9 Gastro-esophageal reflux disease without esophagitis; K62.7 Radiation proctitis; Z85.46 Personal history of malignant neoplasm of prostate; Z89.511 Acquired absence of right leg below knee; Z89.512 Acquired absence of left leg below knee; Z88.0 Allergy status to penicillin; Z88.8 Allergy status to other drugs, medicaments and biological substances; Z79.899 Other long term (current) drug therapy; E11.9 Type 2 diabetes mellitus without complications; D63.1 Anemia in chronic kidney disease

== ENCOUNTER → 2017-03-24 | Outpatient (REF) | payer MEDICARE, MEDICAID ==
[~2017-03-24] MED LIST changes: +ARTI99.0 OU; +CALC1CAP PO; +COLA100C3 PO; +LACROIN OU; +NEPRLIQ3 PO; +PRIL20TA2 PO; +RENA1TAB PO; +VITA-121 PO
== END ==
LOC: SKLAB5 13:07
PROVIDERS: ATTEND Internal Medicine
DX: D64.9 Anemia, unspecified (principal)

== ENCOUNTER 2017-03-26 11:38 | Outpatient (CLI) | payer MEDICARE, MEDICAID ==
[~2017-03-26 11:38] MED LIST changes: -ARTI99.0 OU; -CALC1CAP PO; -COLA100C3 PO; -LACROIN OU; -NEPRLIQ3 PO; -PRIL20TA2 PO; -RENA1TAB PO; -VITA-121 PO
[2017-03-27] MEDS ORDERED: PRIL20TA2 PO (14:50)
[2017-03-27] MEDS ORDERED: VITA-121 PO (14:50)
[2017-03-27] MEDS ORDERED: OCEA0.654 (14:50)
[2017-03-27] MEDS ORDERED: ACET-654 PO (14:50)
[2017-03-27] MEDS ORDERED: GABA-282 PO (14:50)
[2017-03-27] MEDS ORDERED: COLA100C3 PO (14:50)
[2017-03-27] MEDS ORDERED: ARTI99.0 OU (14:50)
[2017-03-27] MEDS ORDERED: DIGO0.12 PO (14:50)
[2017-03-27] MEDS ORDERED: CALC1CAP PO (14:50)
[2017-03-27] MEDS ORDERED: LACROIN OU (14:50)
[2017-03-27] MEDS ORDERED: NEPRLIQ3 PO (14:50)
[2017-03-27] MEDS ORDERED: ASPI325T PO (14:50)
[2017-03-27] MEDS ORDERED: RENA1TAB PO (14:50)
[2017-03-27] MEDS ORDERED: METO50TA2 PO (14:50)
== END 2017-03-26 17:10 | disposition home or self-care (01) ==
LOC: M INFU 11:38
PROVIDERS: ATTEND Nurse Practitioner Adult Health
DX: D64.9 Anemia, unspecified (principal); Z79.899 Other long term (current) drug therapy; Z79.82 Long term (current) use of aspirin; Z88.0 Allergy status to penicillin; Z88.8 Allergy status to other drugs, medicaments and biological substances

== ENCOUNTER 2017-03-27 12:31 | Inpatient (IN) | payer MEDICARE, MEDICAID ==
[2017-03-27] VITALS (8 sets, daily range): BP systolic 79–94; BP diastolic 38–54
[~2017-03-27] VITALS: Ht 177.8 cm; Wt 91.5 kg
[2017-03-27] MEDS ORDERED: PANTOPRAZOLE 40MG INJ (PROTONIX) (C9113) IV ONE (13:15)
[2017-03-27 13:36] LABS: BASO % 0.4 % (0.0-1.0); EOS # 0.2 K/mm3 (0.0-0.50); EOS % 3.1 % (0.0-3.0); INR 1.15; LARGE UNSTAINED CELL # 0.1 K/mm3 (0.0-0.4); LARGE UNSTAINED CELL % 0.9 % (0.0-4.0); LYMPH # 0.7 K/mm3 (1.5-4.5); LYMPH % 11.1 % (24.0-44.0); MEAN CORPUSCULAR HEMOGLOBIN 27.9 pg (27.0-33.0); MEAN CORPUSCULAR HGB CONC 29.4 g/dl (32.0-36.5); MONO # 0.4 K/mm3 (0.0-0.8); NEUTROPHILS # 4.8 K/mm3 (1.8-7.7); NEUTROPHILS % 78.5 % (36.0-66.0); PLATELET COUNT, AUTOMATED 139 k/mm3 (150-450); RED CELL DISTRIBUTION WIDTH 16.2 % (11.5-14.5); WHITE BLOOD COUNT 6.1 K/mm3 (4.0-10.0)
[2017-03-27 13:55] LABS: ALBUMIN 2.2 GM/DL (3.2-5.2); ALBUMIN/GLOBULIN RATIO 0.56 (1.00-1.93); BILIRUBIN,DIRECT 0.1 MG/DL (0.0-0.2); BILIRUBIN,TOTAL 0.5 MG/DL (0.2-1.0); CREATININE FOR GFR 4.61 MG/DL (0.70-1.30); DIGOXIN LEVEL 2.1 NG/ML (0.5-2.0); GLOMERULAR FILTRATION RATE 16.4 (>49); TOTAL PROTEIN 6.1 GM/DL (6.4-8.2)
[2017-03-27 13:59] LABS: POTASSIUM SERUM 5.3 MEQ/L (3.5-5.1)
[2017-03-27] MEDS ORDERED: DEXTROSE 50% 50 ML SYRINGE IV STA (14:36)
[2017-03-27] MEDS ORDERED: HumuLIN R (REGULAR) INSULIN (NovoLIN R) **100U/ML** PER UNIT IV ONE (14:45)
[2017-03-27] MEDS ORDERED: CALCIUM GLUCONATE 1,000 MG in D5W MINI-BAG PLUS 100 ML IV ONE (14:45)
[2017-03-27] MEDS ORDERED: GABA-282 PO (14:50)
[2017-03-27] MEDS ORDERED: NEPRLIQ3 PO (14:50)
[2017-03-27] MEDS ORDERED: ASPI325T PO (14:50)
[2017-03-27] MEDS ORDERED: COLA100C3 PO (14:50)
[2017-03-27] MEDS ORDERED: DIGO0.12 PO (14:50)
[2017-03-27] MEDS ORDERED: ARTI99.0 OU (14:50)
[2017-03-27] MEDS ORDERED: ACET-654 PO (14:50)
[2017-03-27] MEDS ORDERED: VITA-121 PO (14:50)
[2017-03-27] MEDS ORDERED: METO50TA2 PO (14:50)
[2017-03-27] MEDS ORDERED: PRIL20TA2 PO (14:50)
[2017-03-27] MEDS ORDERED: RENA1TAB PO (14:50)
[2017-03-27] MEDS ORDERED: LACROIN OU (14:50)
[2017-03-27] MEDS ORDERED: OCEA0.654 (14:50)
[2017-03-27] MEDS ORDERED: CALC1CAP PO (14:50)
[2017-03-27] MEDS ORDERED: NS 500 ML IV ONE (16:15)
[2017-03-27] MEDS ORDERED: ACETAMINOPHEN TAB 650MG DOSE (2X325MG) PO PRN (16:45)
[2017-03-27] MEDS ORDERED: ONDANSETRON 4MG/2ML VIAL (J2405) IV PRN (16:45)
[2017-03-27] MEDS ORDERED: MORPHINE 2 MG/ML 1ML SYRINGE IV PRN (16:45)
[2017-03-27] MEDS ORDERED: PERCOCET 5MG/325MG TAB PO PRN (16:45)
[2017-03-27] MEDS ORDERED: BISACODYL 5 MG TAB PO PRN (16:45)
[2017-03-27] MEDS ORDERED: POLYVINYL ALCOHOL OPHTH SOLN 15 ML(LIQUITEARS) OU PRN (17:00)
[2017-03-27] MEDS ORDERED: methylPREDNISolone INJ 40 MG/1 ML VIAL (J2920) IV ONE (19:15)
[2017-03-27] MEDS ORDERED: fentaNYL 100 MCG/2 ML INJECTION (J3010) As Ordered ONE (20:33)
[2017-03-27] MEDS ORDERED: MIDAZOLAM INJ 2 MG/2 ML VIAL (J2250) As Ordered ONE ×2 (20:33→23:08)
--- NOTE | 2017-03-27 20:36 | HPE ---
DATE OF ADMISSION: 03/27/2017 PRIMARY CARE PHYSICIAN: Dr. Torres SENIOR NATIONAL ACCOUNT MANAGER: Dr. Abraham COLORECTAL SURGEON: Dr. De La Rosa, in [facility]. CHIEF COMPLAINT: Recurrent Gastrointestinal (GI) bleeding. CODE STATUS: FULL CODE. HISTORY OF PRESENT ILLNESS: Mr. Fernandez is a 66-year-old male with multiple past medical history including recurrent gastrointestinal (GI) bleeding. Patient is from [facility] and has been admitted to [facility] multiple times due to recurrent GI bleeding. On 02/22/2017, patient had a colonoscopy, which was done by Dr. Heath, revealed a single shallow solitary ulcer in the distal rectum, which was clipped. Dr. Madrigal performed colonoscopy on 02/28/2017 which revealed congested and ulcerated mucous in the distal rectum and this was treated with argon plasma coagulation. Patient is status post rectal ulcer biopsy with plication on 03/09/[address] Madrigal. Intravascular angiogram embolization performed by right rectal branch by interventional radiology (IR) on 03/11/2017. Intravascular angiogram embolization performed by interventional radiology (IR) on the left rectal branch with Gelfoam. Patient was transferred to [facility] and had flexible sigmoidoscopy, which was done at [facility] by Dr. De La Rosa, as well as embolization. Findings were ischemic mucosa with slugging and, based on the record, the osteotomy of diversion was offered to the patient; however, he and his refused ostomy. Patient was discharged after having been no further episodes of blood per rectum and was returned to [facility]. However, patient had an episode of bleeding at 12:00 a.m. this morning, with blood clot per rectum. Patient expressed that he felt the clot coming out of his rectum. This episode continued. Patient denied having fever, chills or night sweats. Patient also denied having palpitations, racing or skipping heartbeat. Patient also denied seizure-type activity or losing consciousness. Patient also denied rash or lesions. Patient was transferred to [facility] for further evaluation. PAST MEDICAL HISTORY: 1. End-stage renal disease on hemodialysis on Wednesday, Wednesday and Wednesday. 2. History of recurrent gastrointestinal (GI) bleeding. 3. Chronic atrial fibrillation. Not on anticoagulation due to gastrointestinal bleeding. 4. Peripheral vascular disease. 5. Diabetes mellitus type 2. 6. Secondary hyperparathyroidism. 7. History of carcinoma of the prostate, status post radiation therapy, causing radiation proctitis. 8. Diastolic congestive heart failure. 9. Preliminary hypertension. 10. Moderate to severe aortic stenosis. 11. History of internal hemorrhoids. PAST SURGICAL HISTORY: 1. Colonoscopy 2. Status post bilateral below-knee amputation. 3. Status post left upper arm atrioventricular (AV) fistular placement for hemodialysis. ALLERGIES: HEPARIN, PENICILLIN. SOCIAL HISTORY: Patient was living with his ; however, two months ago, patient moved to [facility]. Patient has not been drinking alcohol for a long time; however, before that, patient was drinking occasionally. Patient, about five to six months ago, quit smoking; however, before that, patient was smoking about one-half pack since age 15. Patient denied illicit drug use. Patient has five children who are healthy for their age. FAMILY HISTORY: Patient has one brother and the other brother due to heart disease. Patient had two sisters who due to cancer and heart disease and patient does not know anything about his father; however, patient's mother due to heart disease. HOME MEDICATIONS: - acetaminophen 650 mg by mouth every 4 hours as needed for pain - Artificial Tears 1 drop both eyes four times a day as needed for dry eyes. - aspirin 325 mg by mouth daily - calcium acetate 667 mg by mouth daily - vitamin D3 1000 units by mouth daily - digoxin 0.125 mg by mouth daily - Colace 100 mg by mouth twice a day - gabapentin 300 mg by mouth three times a day - metoprolol tartrate 50 mg by mouth twice a day - Nepro with Carbohydrate Steady 1 liquid by mouth daily - Prilosec OTC 20 mg by mouth daily - Refresh Lacri-Lube 1 dose both eyes at bedtime - Meggan-Keely 0.8 mg one tablet by mouth daily - sodium chloride 2 sprays in each nostril twice a day REVIEW OF SYSTEMS: GENERAL: Patient denies fever, chills, night sweats, weight loss, weight gain. HEENT: Patient denies acute vision or hearing changes; however, patient expressed that he feels some mild lightheadedness. NECK: Patient denies lumps, bumps or decreased range of motion of his neck. HEART: Patient denies palpitations, racing or skipping heartbeat; however, patient expressed that last night, he had some palpitations. LUNGS: Patient denies shortness of breath or coughing. ABDOMEN: Patient denies abdominal pain, nausea, vomiting, diarrhea; however, patient has hematochezia. NEUROLOGIC: Patient denies a history of transient ischemic attack (TIA), severe seizure-type activities. PHYSICAL EXAMINATION: VITAL SIGNS: Temperature 97.8, pulse 86, respiratory rate 18, blood pressure 108/53, pulse oximetry 99% on room air. GENERAL APPEARANCE: Patient was awake, alert and oriented to time, place and person. HEENT: Normocephalic, atraumatic. Pupils are equal and reactive to light. Oral mucosa is moist; however, patient has decreased due to cataracts. NECK: No lymphadenopathy. No thyromegaly. No jugular venous distention (JVD). HEART: Irregular irregular, mild systolic murmur ABDOMEN: Soft, nontender. Positive bowel sounds in all quadrants. LUNGS: Clear breath sounds bilaterally. Good air movement. EXTREMITIES: Patient has [id number] amputations. Normal strength (5/5) in both lower extremities NEUROLOGIC: Cranial nerves II-XII intact. RECTUM: Blood per rectum. Patient has external hemorrhoids. LABORATORY DATA: White blood cells 6.1, red blood cells 3.01, hemoglobin 8.4, hematocrit 28.6, MCV 95, MCH 27.9, MCHC 29.4, RDW 16.2, platelet count 139, neutrophil percentage 78.5, lymphocyte percentage 11.1, monocyte percentage 6, eosinophils percentage 3.1, basophil percentage 0.4, leukocyte percentage 0.9. PT 14.8. INR 1.15. APTT 33.1. Sodium 145, potassium 5.3, chloride 107, carbon dioxide 32, anion gap 6, BUN 28, creatinine 4.61, glomerular filtration rate 16.4, fasting glucose 158, lactic acid 1.4, calcium 8, Total bilirubin 0.5, direct bilirubin 0.1, AST 31, ALT 30, alkaline phosphatase 123, total protein 6.1, albumin 2.2, lipase 370. TOXICOLOGY: Digoxin level 2.1. ASSESSMENT AND PLAN: 1. Recurrent gastrointestinal (GI) bleeding. I have consulted Dr. Burns. We have started patient on a clear diet and Protonix 40 mg twice a day intravenously (IV). Patient was on aspirin however I have a stopped aspirin due to GI bleeding. I will continue patient on hemoglobin and hematocrit every 6 hours. Patient has already signed a consent for blood transfusion. I have ordered type and cross and 2 units of red blood cells. 2. Chronic atrial fibrillation. Patient's rate is controlled and patient is on digoxin 0.125 mg three times a week; however, patient's digoxin level is elevated therefore I have stopped digoxin. We will repeat his digoxin level again tomorrow. Also, patient is on metoprolol 50 mg by mouth twice a day. No anticoagulation due to GI bleeding. 3. End-stage renal disease. Patient is on hemodialysis on Wednesday, Wednesday and Wednesday. I have consulted Dr. Abraham. 4. Chronic pain. Patient is on gabapentin. 5. Secondary hyperparathyroidism. This is a chronic issue we'll continue patient on PhosLo and vitamin D. 6. History of diastolic congestive heart failure. Patient is on metoprolol. At this point, patient is euvolemic. I have started patient on fluid restriction of 2000 mL per day. Also controlling volume with hemodialysis. 7. Vitamin D deficiency. Patient is on supplement. 8. Deep venous thrombosis (DVT) prophylaxis. Due to GI bleeding, I started patient on thromboembolitic deterrents (TEDs) and sequentials. 9. Hyperkalemia. This is possibly secondary to chronic renal failure. In the emergency room (ER), patient received dextrose was well as insulin. We will recheck the potassium level. EKG indicated sinus rhythm with left axis deviation and moderate intraventricular conduction delay. My preceptor for this patient encounter was Dr. Shanel Vasquez. The preceptor was physically present in the building during the encounter and was fully available as needed. All aspects of the patient interview, examination, medical decision-making process, and medical care plan development were reviewed and approved by the preceptor. The preceptor is aware and concurs with the plan as stated in the body of this note and will attest to such by his/her co-signature. MARIA ALEJANDRA
[2017-03-27] MEDS ORDERED: LIDOCAINE 2% INJ 100 MG/5 ML SDV (FOR ANES.) As Ordered ONE (20:41)
[2017-03-27] MEDS ORDERED: ETOMIDATE INJ 20MG/10ML VIAL As Ordered ONE (20:42)
[2017-03-27] MEDS ORDERED: ROCURONIUM BROMIDE 50 MG/5 ML VIAL As Ordered ONE (20:43)
[2017-03-27] MEDS ORDERED: BUPIVACAINE HCL 0.5% 30 ML VIAL As Ordered ONE (20:46)
[2017-03-27] MEDS ORDERED: METOPROLOL TART 50 MG TAB PO SCH (21:00)
[2017-03-27] MEDS: DOCUSATE SODIUM 100 MG CAP PO SCH (21:00)
[2017-03-27] MEDS: SODIUM CHLORIDE NASAL 0.65% SPRAY BTL (OCEAN) SCH (21:00)
[2017-03-27] MEDS: GABAPENTIN 300 MG CAP PO SCH (21:00)
[2017-03-27] MEDS ORDERED: PHENYLEPHRINE INJ 10MG/ML VIAL (J2370) As Ordered ONE ×2 (21:04→23:03)
[2017-03-27] MEDS ORDERED: NEOSTIGMINE 1MG/ML 5 ML SYRINGE (J2710) As Ordered ONE (21:51)
[2017-03-27] MEDS ORDERED: GLYCOPYRROLATE INJ 0.2 MG/ML 2 ML VIAL As Ordered ONE (21:51)
[2017-03-27] MEDS ORDERED: LIDOCAINE W/EPINEPHRINE 1% 20ML VIAL As Ordered ONE (22:02)
[2017-03-27] MEDS ORDERED: PHENYLephrine HCL 500 MCG/5 ML (100MCG/ML) SYRINGE (J2370) As Ordered ONE ×2 (22:51→23:37)
[2017-03-27 23:23] LABS: MEAN CORPUSCULAR HEMOGLOBIN 27.7 pg (27.0-33.0); MEAN CORPUSCULAR HGB CONC 30.2 g/dl (32.0-36.5); MEAN CORPUSCULAR VOLUME 91.7 fl (80.0-96.0); RED CELL DISTRIBUTION WIDTH 17.3 % (11.5-14.5); WHITE BLOOD COUNT 21.6 K/mm3 (4.0-10.0)
[2017-03-27 23:43] LABS: CALCIUM LEVEL 7.8 MG/DL (8.8-10.2); CREATININE FOR GFR 4.69 MG/DL (0.70-1.30); GLOMERULAR FILTRATION RATE 16.1 (>49); POTASSIUM SERUM 5.8 MEQ/L (3.5-5.1)
[2017-03-28] VITALS (52 sets, daily range): BP systolic 68–124; BP diastolic 33–55
[2017-03-28] MEDS ORDERED: PHENYLEPHRINE HCL INJ 50 MG in D5W 500 ML IV SCH ×2
--- NOTE | 2017-03-28 | REPUSA ---
CLINICAL HISTORY: hypotension COMMENTS: AP view of the chest was performed. The cardiac silhouette is enlarged. There is evidence for pulmonary venous congestion compatible with CHF. Small right pleural effusion is noted. There is no definite radiographic evidence for a lung mass or consolidation. Bony structures appear normal. IMPRESSION: 1. Enlarged cardiac silhouette. 2. Pulmonary venous congestion compatible with CHF. 3. Small right pleural effusion. Thank you for your kind referral of this patient.
[2017-03-28] MEDS ORDERED: AMIODARONE HCL 150 MG in APPROPRIATE DILUENT 1 EA IV STA (00:03)
[2017-03-28] MEDS: PANTOPRAZOLE 40MG INJ (PROTONIX) (C9113) IV SCH ×3 (01:08→21:32)
[2017-03-28 04:52] LABS: MEAN CORPUSCULAR HEMOGLOBIN 27.7 pg (27.0-33.0); MEAN CORPUSCULAR HGB CONC 29.8 g/dl (32.0-36.5); MEAN CORPUSCULAR VOLUME 93.1 fl (80.0-96.0); PLATELET COUNT, AUTOMATED 254 k/mm3 (150-450); RED CELL DISTRIBUTION WIDTH 17.8 % (11.5-14.5); WHITE BLOOD COUNT 17.8 K/mm3 (4.0-10.0)
[2017-03-28 05:16] LABS: ALBUMIN/GLOBULIN RATIO 0.74 (1.00-1.93); BILIRUBIN,TOTAL 0.6 MG/DL (0.2-1.0); CALCIUM LEVEL 7.3 MG/DL (8.8-10.2); CREATININE FOR GFR 5.1 MG/DL (0.70-1.30); GLOMERULAR FILTRATION RATE 14.6 (>49); MAGNESIUM LEVEL 1.9 MG/DL (1.8-2.4)
[2017-03-28 06:09] LABS: POLYCHROMASIA 2+
[2017-03-28 06:10] LABS: ANISOCYTOSIS 2+
[2017-03-28 06:11] LABS: HYPOCHROMASIA 1+
[2017-03-28 06:15] LABS: DIGOXIN LEVEL 3.9 NG/ML (0.5-2.0)
[2017-03-28 06:16] LABS: POTASSIUM SERUM 5.9 MEQ/L (3.5-5.1)
[2017-03-28 06:28] LABS: TOTAL PROTEIN 4.7 GM/DL (6.4-8.2)
--- NOTE | 2017-03-28 07:50 | ECGEPIP ---
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
[2017-03-28] MEDS: CALCIUM ACETATE 667 MG GELCAP PO SCH (08:36)
[2017-03-28] MEDS: VITAMIN D 1,000 INTERNATIONAL UNITS TABLET PO SCH (08:36)
[2017-03-28] MEDS: SODIUM CHLORIDE NASAL 0.65% SPRAY BTL (OCEAN) SCH ×2 (08:36→21:32)
[2017-03-28] MEDS: DOCUSATE SODIUM 100 MG CAP PO SCH ×2 (08:36→21:32)
[2017-03-28] MEDS: GABAPENTIN 300 MG CAP PO SCH ×3 (08:36→21:32)
[2017-03-28] MEDS ORDERED: DIGOXIN 0.125 MG TAB PO SCH (09:00)
[2017-03-28] MEDS ORDERED: VANCOMYCIN HCL 1,000 MG, VIAL MATE ADAPTER 1 EACH in D5W 250 ML IV ONE (10:00)
[2017-03-28] MEDS ORDERED: AZTREONAM 0.5 GM in D5W 50 ML IV ONE (11:00)
--- NOTE | 2017-03-28 12:00 | IPN ---
DATE: 03/28/2017 SUBJECTIVE: The patient tells me that he has no complaints at this time. He denies chest pain, abdominal pain, nausea, vomiting or diarrhea. OBJECTIVE: VITAL SIGNS: Temperature 97.9, pulse is 75, respiratory rate is 17, blood pressure 86/48, oxygen saturation 98% on room air. GENERAL: He is a pleasant -[place] male lying in bed at a 40 degree angle. He does not appear to be in acute distress. He is sleeping peacefully when I entered the room but easily arousable to verbal stimuli. HEENT: Pupils are equal and round. He has a chronic asymmetric face. Moist mucous membranes. No elevation of central venous pressure. CARDIOVASCULAR EXAM: S1, S2. Irregularly irregular. RESPIRATORY EXAM: Clear. ABDOMINAL EXAM: Benign. EXTREMITIES: Status post amputations bilaterally. LABORATORY STUDIES: WBC 17.8, down from 21.6, hemoglobin 7.7, down from 8.0, hematocrit 25.9, platelet count 254. He has neutrophil predominance. Chemistry panel: Sodium 144, potassium 5.9, chloride 110, bicarbonate 27, BUN 34, creatinine 5.1. Toxicology: Digoxin level is 3.9. Blood bank: The patient is currently receiving his third unit of blood. Imaging: The patient had a chest x-ray that revealed pulmonary venous congestion compatible with congestive heart failure (CHF). ASSESSMENT AND PLAN: This is a 66-year-old man with recurrent gastrointestinal bleed. 1. Recurrent gastrointestinal bleed. The patient has unfortunately had numerous admissions and readmissions regarding GI bleed at multiple facilities. All of them of late appear to be right near the anal verge near the rectum. He has had clipping, suturing, Argon, lasering, biopsies taken, and persistent rebleeding. Most recently Dr. Burns took the patient to the operating room where he found "arterial bleed," which he was able to suture up. At the present time, the patient does not appear to be actively bleeding, he has continued with blood transfusions. We will continue to monitor his hemoglobin and hematocrit and his hemodynamics. However, given his frequent rebleeding, I am not overly optimistic about him going without GI bleeding for a significant amount of time. Should he have a rebleed, given the complexity of his case and the location of the bleeding, I wonder if the patient may not be better served at [facility] where they offered him colorectal surgeon intervention. For now, we can simply monitor. No pharmacological anticoagulation. 2. End stage renal disease on hemodialysis. The patient received blood and fluids. He appears to be quite comfortable lying flat and I do not see any indication for hemodialysis at this time. Dr. Abraham's help is greatly appreciated. 3. Leukocytosis/shock. The patient was fairly hypotensive secondary to acute blood loss anemia secondary to GI bleeding. He was on phenylephrine through a peripheral IV. He chronically runs quite low with his blood pressure. I recommended that they titrate off the phenylephrine as tolerated for a MAP of 55. I spoke with Dr. Abraham, who expressed concern given the patient's shock and leukocytosis as he is a dialysis patient. He will be empirically covered with antibiotics. I will draw cultures. If his cultures remain negative, we can consider discontinuing in the near future. We will continue to monitor closely. 4. Atrial fibrillation. Not on anticoagulation secondary to high propensity for GI bleeding. He is normally on digoxin three times a week; however, he has an elevated level at this time so we are holding his digoxin. We are withholding diltiazem, as he was requiring phenylephrine. Continue to monitor and it will be restarted as indicated. He does have a propensity for atrial fibrillation with rapid ventricular response, however, at this time, he is controlled. 5. Chronic pain. Continue with gabapentin. 6. Secondary hyperparathyroidism. Continue with PhosLo and vitamin D. 7. Gastrointestinal prophylaxis. The patient is on Protonix. 8. Diastolic heart failure. Volume status is controlled via hemodialysis. 9. Deep vein thrombosis (DVT) prophylaxis. Sequential compression device (SCD) and TEDs. No pharmacological agents. 10. Moderate to severe aortic stenosis. Given his multiple comorbidities, he is likely a poor candidate for valve replacement. DISPOSITION: We will continue to monitor the patient in the medical intensive care unit (ICU) for today. MARIA ALEJANDRA
[2017-03-28] MEDS ORDERED: CHECK TO SEE IF PATIENT IS RECEIVING DIALYSIS TODAY AND REFER TO THE VANCOMYCIN ORDER XX SCH (16:00)
[2017-03-28] MEDS ORDERED: VANCOMYCIN HCL 1,000 MG, VIAL MATE ADAPTER 1 EACH in D5W 250 ML IV SCH (16:00)
[2017-03-28] MEDS ORDERED: D5W MINI IV SCH (18:00)
[2017-03-28] MEDS ORDERED: AZTREONAM IV SCH (18:00)
[2017-03-28] MEDS: AZTREONAM 0.5 GM in D5W 50 ML IV SCH (18:03)
--- NOTE | 2017-03-28 21:10 | CR ---
DATE OF CONSULTATION: 03/28/2017 REQUESTING PHYSICIAN: Dr. Autumn Fajardo CONSULTING PHYSICIAN: Dr. Abraham REASON FOR CONSULTATION: Management of end-stage renal disease, hemodialysis and hyperkalemia. CHIEF COMPLAINT: Patient presented to the emergency room yesterday with rectal bleeding. HISTORY OF PRESENT ILLNESS: Mr. Nicho Fernandez is a 66-year-old male with a past medical history of end-stage renal disease on hemodialysis every Wednesday, Wednesday, Wednesday, well-known to nephrology service from outpatient hemodialysis center and from previous recurrent admissions. Patient has history of rectal bleeding He has been admitted multiple times in the past. Multiple procedures have been done in the past, including clipping, laser therapy, angiograms, colonoscopies. Most recent procedure was intravascular angiogram and embolization of rectal vessels on right and left side but patient presented to the emergency room again yesterday because of active rectal bleeding. Patient was taken to the operating room by surgical service and he was found to have another arterial bleed, which was sutured. Patient is currently in the intensive care unit (ICU). So far, he has been given 40 units of packed red blood cells transfusion. When I saw the patient, he was also on phenylephrine for hypotension. Nephrology service has been called for management of end-stage renal disease and hemodialysis. Patient's potassium is 5.9. Patient otherwise is asymptomatic at this time and he was eating his lunch when he was examined by me. PAST MEDICAL HISTORY: Past medical history of: 1. End-stage renal disease on hemodialysis every Wednesday, Wednesday and Wednesday. 2. History of recurrent rectal bleeding. 3. Chronic atrial fibrillation, not on anticoagulation because of recurrent gastrointestinal (GI) bleed. 4. Peripheral vascular disease status post bilateral below-knee amputations. 5. Diabetes mellitus type 2. 6. Secondary hyperparathyroidism. 7. Carcinoma of the prostate, status post radiation therapy which caused radiation proctitis. 8. History of diastolic congestive heart failure. 9. Hypertension. 10. History of moderate to severe aortic stenosis. PAST SURGICAL HISTORY: 1. Status post colonoscopies in the past. 2. Status post angiogram and embolization of the rectal vessels recently on previous admission. 3. Status post bilateral below-knee amputation. 4. Status post right forearm atrioventricular (AV) fistular placement which clotted and status post left forearm AV fistula, which is functional at this time. ALLERGIES: Patient is allergic to PENICILLINS and HEPARIN. FAMILY HISTORY: No significant family history of end-stage renal disease requiring hemodialysis. There is positive family history of heart disease. SOCIAL HISTORY: Patient is currently at [facility]. There is no history of illicit drug abuse, alcohol abuse and he is a former smoker. He quit about six months ago. REVIEW OF SYSTEMS: GENERAL: Patient denies fever, chills or weight loss. EYES: He denies any blurry vision or double vision. ENT: He denies any dysphagia or odynophagia or ear discharge. CARDIOVASCULAR: Patient reports history of atrial fibrillation, but denies palpitations or chest pain. RESPIRATORY: He denies any shortness of breath or coughing. GASTROINTESTINAL (GI): He denies any abdominal pain, nausea, vomiting, but he does report rectal bleeding. CENTRAL NERVOUS SYSTEM: Patient denies history of seizures or transient ischemic attack (TIA) in the past. HEMATOLOGIC/ONCOLOGIC: Patient reports anemia secondary to end-stage renal disease and anemia secondary to recurrent GI bleeding. ENDOCRINE: Patient reports history of secondary hyperparathyroidism. PSYCHIATRIC: He denies any history of depression or anxiety. All other review of systems are negative. PHYSICAL EXAMINATION: GENERAL: Patient is awake, alert, oriented times three, sitting in the bed. No apparent distress. VITAL SIGNS: Temperature 98.8 degrees Fahrenheit, blood pressure 96/46, pulse 76, respiratory rate 16, saturating 98% on room air. INTAKE AND OUTPUT: Urine output is not recorded at this time. Patient has received 600 mL of blood products so far. He is 2 liters positive since overnight. His weight in the bed scale is 87.6 kg. HEAD AND NECK EXAMINATION: Extraocular muscles intact. Pupils equally round and reactive to light, but patient does have a squint. Mucosal membranes are moist. His face is puffy, as compared to baseline, because of the recent volume resuscitation. Neck is supple. There is no jugular venous distention (JVD). CARDIOVASCULAR: S1, S2. Irregularly irregular heart rate. Patient has a grade 3/6 systolic murmur as well. RESPIRATORY: Clear to auscultation bilaterally. Bilateral equal air entry. No rales or rhonchi. ABDOMEN: Soft. Positive bowel sounds. Nontender. No ascites. No organomegaly at this bakari. EXTREMITIES: Patient has bilateral below-knee amputations. CENTRAL NERVOUS SYSTEM: No focal neurological deficits. Power is 5/5 in all extremities. PSYCHIATRIC: Normal mood and affect. SKIN: No rashes or ulcers. LYMPH NODES: No significant cervical, axillary or inguinal lymphadenopathy. LABORATORY REVIEW: CBC showed a WBC 17.8, hemoglobin 7.7, hematocrit 25.9, platelet count 254. BMP showed sodium 144, potassium 5.9, chloride 110, bicarbonate 27, BUN 34, creatinine 5.1, calcium 7.3. Albumin 2. TOXICOLOGY: Digoxin level 3.9. MICROBIOLOGY: Blood cultures are done, but they are pending. IMAGING: A chest x-ray was done last night which showed enlarged cardiac silhouette, pulmonary venous congestion compatible with congestive heart failure (CHF), and small right pleural effusion. CURRENT INPATIENT MEDICATIONS: Patient's inpatient medications include: - amiodarone 150 mg IV stat was given for atrial fibrillation with rapid ventricular response He has been started on: - Azactam 0.5 gram IV every 12 hours He was given a dose of: - vancomycin 1 gram IV - phenylephrine for hypotension - Tylenol as needed - Artificial Tears - PhosLo one tablet by mouth daily - digoxin was held because of high levels - Colace 100 mg by mouth twice a day - gabapentin 300 mg by mouth three times a day - Solu-Medrol 40 mg IV one dose was given - morphine IV as needed for pain - Zofran 4 mg IV every 6 hours as needed for Nausea - Percocet one tablet every 4 hours as needed for moderate pain - Protonix 40 mg IV every 12 hours - vitamin D 1000 units by mouth daily ASSESSMENT: A 66-year-old male with past medical history of end-stage renal disease on hemodialysis, chronic atrial fibrillation, not on anticoagulation, peripheral vascular disease status post bilateral below-knee amputation, diabetes mellitus type 2, admitted this time because of recurrent gastrointestinal (GI) bleeding, hypotension, and he also had atrial fibrillation with rapid ventricular response on admission yesterday. PLAN: 1. End-stage renal disease on hemodialysis. Patient's regular dialysis days are Wednesday, Wednesday and Wednesday. Patient was given a lot of volume, including fluid and blood, needing resuscitation and he is hyperkalemic as well. I have arranged urgent hemodialysis to be done in the intensive care unit (ICU) today and, if tolerated by him, ultrafiltration will be done. 2. Rectal bleeding. Patient has had multiple episodes of rectal bleeding in the past as well. During this admission, he was found to have an arterial bleed, which was sutured by surgical service. Continue to monitor CBC every eight hours. Continue blood transfusions as needed, and try to maintain hemoglobin above eight. 3. Hypotension. Patient was on phenylephrine, which is being weaned off at this time. Patient is otherwise asymptomatic. Continue to hold metoprolol at this time. 4. Atrial fibrillation with rapid ventricular response. Patient's digoxin is on hold because levels are high. He was given one dose of amiodarone 150 mg IV stat. Heart rate is well controlled at this time. Patient is not a candidate for anticoagulation because of recurrent bleeding. 5. Hyperkalemia. Patient received dextrose and insulin. He cannot get Kayexalate at this time because of recent rectal bleeding. I have arranged the urgent hemodialysis. He will be dialyzed against 1 K bath for three hours and hopefully, that will help improve his hyperkalemia. 6. Hypotension and leukocytosis. Because of a recent rectal ulcer and high white cell count and patient requiring pressors, I would empirically cover the patient with IV vancomycin and IV Azactam. Patient is allergic to penicillins. Cultures have been sent. If patient's cultures come back negative and his blood pressure improves, then antibiotics will be stopped. 7. Chronic kidney disease/mineral bone disease. Continue PhosLo with meals. 8. Digoxin toxicity. Patient's digoxin level is 3.9 at this time. His level was 2.1 yesterday. Continue to hold digoxin at this time. Patient is being dialyzed. Usually digoxin is not very easily dialyzable. Patient does not have any symptoms at this time. Continue to monitor for now. Thank you for involving us in the care of this patient. We shall be happy to follow the patient along with you tomorrow morning. Plan of care was discussed with hospitalist team, Dr. Autumn Fajardo. MARIA ALEJANDRA
[2017-03-29] VITALS (15 sets, daily range): BP systolic 79–102; BP diastolic 40–55
[2017-03-29 04:59] LABS: ALBUMIN 1.9 GM/DL (3.2-5.2); ALBUMIN/GLOBULIN RATIO 0.7 (1.00-1.93); BILIRUBIN,TOTAL 0.3 MG/DL (0.2-1.0); CALCIUM LEVEL 7.5 MG/DL (8.8-10.2); CREATININE FOR GFR 3.65 MG/DL (0.70-1.30); GLOMERULAR FILTRATION RATE 21.5 (>49); MAGNESIUM LEVEL 1.8 MG/DL (1.8-2.4); POTASSIUM SERUM 3.9 MEQ/L (3.5-5.1); TOTAL PROTEIN 4.6 GM/DL (6.4-8.2)
[2017-03-29 05:07] LABS: BASO % 0.3 % (0.0-1.0); EOS # 0.1 K/mm3 (0.0-0.50); EOS % 1.1 % (0.0-3.0); LARGE UNSTAINED CELL # 0.1 K/mm3 (0.0-0.4); LARGE UNSTAINED CELL % 1.6 % (0.0-4.0); LYMPH % 13.3 % (24.0-44.0); MEAN CORPUSCULAR HEMOGLOBIN 28.9 pg (27.0-33.0); MEAN CORPUSCULAR HGB CONC 31.6 g/dl (32.0-36.5); MEAN CORPUSCULAR VOLUME 91.5 fl (80.0-96.0); MONO # 0.4 K/mm3 (0.0-0.8); MONO % 5.3 % (0.0-5.0); NEUTROPHILS # 5.8 K/mm3 (1.8-7.7); NEUTROPHILS % 78.4 % (36.0-66.0); RED CELL DISTRIBUTION WIDTH 17.6 % (11.5-14.5); WHITE BLOOD COUNT 7.3 K/mm3 (4.0-10.0)
[2017-03-29 05:52] LABS: PLATELET COUNT, AUTOMATED 97 k/mm3 (150-450)
[2017-03-29] MEDS: AZTREONAM 0.5 GM in D5W 50 ML IV SCH (05:52)
--- NOTE | 2017-03-29 07:06 | ECGEPIP ---
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
--- NOTE | 2017-03-29 07:26 | RO ---
DATE OF PROCEDURE: 03/27/2017 PREOPERATIVE DIAGNOSIS: Rectal bleeding. POSTOPERATIVE DIAGNOSIS: Multiple distal rectal ulcers with single arterial bleeder. PROCEDURE PERFORMED: Rectal exam under anesthesia with oversewing of rectal bleeder and infiltration of 1% Xylocaine with epinephrine. SURGEON: Dr. Cristian Burns PIN DRAFTER: ANESTHESIA: General. ESTIMATED BLOOD LOSS: INDICATIONS FOR PROCEDURE: The patient is a 66-year-old man who has over the last 6 weeks or so had recurring episodes of rectal bleeding. He had undergone endoscopy about 6 weeks ago and was found to have a distal rectal ulcer and the hotel housekeeper applied clips to this area. He subsequently had further bleeding and a re-endoscopy was performed with coagulation using the argon plasma steam tank operator. Subsequent to this, further bleeding led to an exam under anesthesia with biopsy of this ulcer and closure of the wound. With further bleeding, he underwent on 03/10 and 03/11 right and left rectal artery embolizations. He continued to bleed after this and was transferred to [facility] where the bleeding ceased and he was subsequently discharged back to the [facility]. He now has developed bright red rectal bleeding. He was transferred to the emergency department where he was passing fresh blood and clots. The patient has now been admitted. He has received 2 units of packed red blood cells and he is for exam under anesthesia for control of bleeding. OPERATIVE PROCEDURE: The patient was placed under general endotracheal anesthesia. He was rolled into a prone position with his pressure points padded. The buttocks were lightly spread with tape. The perineum was prepped and draped. There was some clot at the orifice of the anus. A Feliciano anal speculum was gently inserted and a large amount of clot and fresh blood was suctioned from the rectum. On the anterior rectal wall at the midline just proximal to an area of ulceration and erosion was a small arterial bleeder which was readily identified. This was initially oversewn with a single #2-0 Vicryl slightly proximal to the bleeding point without success and a U stitch of #2-0 Vicryl was then placed about the bleeder with cessation of bleeding. A third stitch was placed slightly more distal as well. Following this, a more thorough inspection of the rectum was performed. The rectal mucosa in the mid and upper rectum appeared normal and healthy. Just in the area proximal to the dentate line, the patient had several areas of shallow erosion which were intermittent around the circumference of the rectum that probably involved 50% of the circumference. The deepest and widest area of erosion and ulceration was at the anterior aspect and extending somewhat to the right of the midline anteriorly. In this area, the area that was denuded was perhaps 2 cm in width and perhaps 4-5 cm in length. There were no other areas of active bleeding identified. I elected to inject some 1% Xylocaine with epinephrine also into the area of the previously noted bleeder and approximately 10 mL were infiltrated across this area. Final inspection showed no evidence of continued bleeding. A folded 4x4 was placed over the anal opening and held in place with minimal tape. The patient was then rolled into a supine position on the stretcher. He was awakened by anesthesia and extubated and moved to the recovery room in stable condition. He was quite tachycardiac on presentation to the recovery room, but appeared to be having an adequate respiratory effort and blood pressure. DARRICKD
[2017-03-29] MEDS: GABAPENTIN 300 MG CAP PO SCH ×3 (09:08→21:02)
[2017-03-29] MEDS: VITAMIN D 1,000 INTERNATIONAL UNITS TABLET PO SCH (09:08)
[2017-03-29] MEDS: DOCUSATE SODIUM 100 MG CAP PO SCH ×2 (09:08→21:02)
[2017-03-29] MEDS: CALCIUM ACETATE 667 MG GELCAP PO SCH (09:08)
[2017-03-29] MEDS: PANTOPRAZOLE 40MG INJ (PROTONIX) (C9113) IV SCH ×2 (09:09→21:02)
[2017-03-29] MEDS: SODIUM CHLORIDE NASAL 0.65% SPRAY BTL (OCEAN) SCH ×2 (09:09→21:02)
--- NOTE | 2017-03-29 19:48 | IPN ---
DATE: 03/29/2017 SUBJECTIVE: Mr. Fernandez is a 66-year-old male who was seen and examined at the bedside. The patient denies chest pain or shortness of breath. Patient denies diarrhea, constipation, nausea, or vomiting. OBJECTIVE: VITAL SIGNS: Temperature 99, pulse 89, respiratory rate 16, blood pressure 79/44 , pulse oximetry 92 on room air. Total intake from yesterday 3226 with a total output of 1800. GENERAL APPEARANCE: The patient was sitting in bed in no acute distress. The patient was awake, alert and oriented to time, place and person. HEENT: Normocephalic atraumatic. Pupils are equal and reactive to light. Oral mucosa is moist. NECK: Supple. No lymphadenopathy. HEART: Irregularly irregular. Normal S1, S2. RESPIRATORY: Clear breath sounds bilaterally. ABDOMEN: Soft, nontender, positive bowel sounds in all quadrants. EXTREMITIES: Patient has amputation below the knee bilaterally. LABORATORY DATA: White blood cels 7.3, red blood cells 2.47. Hemoglobin 7.2, hematocrit 22.6, MCV 91.5, MCH 28.9, MCHC 31.6, RDW 17.6, platelet count 97. Neutrophil percentage 78.4. Lymphocyte percentage 13.3. Monocyte percentage 5.3. Eosinophil percentage 1.1, basophil percentage 0.3, leukocyte percentage 1.6. Sodium 139, potassium 3.9, chloride 103, carbon dioxide 30, anion gap 6, BUN 21, creatinine 3.65, glomerular filtration rate 21.5, fasting glucose 119, calcium 7.5, magnesium 1.8, total bilirubin 0.3, AST 9, ALT 17, alkaline phosphatase 77, total protein 4.6, albumin 1.9. Blood culture is pending at this time. ASSESSMENT AND PLAN: 1. Recurrent gastrointestinal (GI) bleed. At this time patient is scheduled to receive blood transfusion. Patient has several readmissions due to GI bleeding which is mostly bleeding right near the anal verge, near the rectum area. Patient had clipping, suturing, Argon lasering and biopsies. Dr. Cade has been consulted who found the patient has arterial bleeding and he sutured it up. At this time patient does not have any bleeding. Will continue monitoring patient hemoglobin and hematocrit. Due to the GI bleeding I would be I will not be starting the patient on any anticoagulation. 2. End-stage renal disease on dialysis. Patient received diuresis yesterday. Nephrology has been consulted. We are waiting for further recommendations from nephrology. 3. Leukocytosis/hypovolemic shock. This is possibly secondary to acute blood loss anemia due to GI bleeding. Patient was on phenylephrine through the peripheral IV and the patients blood pressure runs low. At this time we have stopped the phenylephrine and since patient mean arterial pressure (MAP) around 55. Patient was empirically covered with an antibiotic with vancomycin and Aztreonam however we have not started these medications as his blood culture is negative. 4. Thrombocytopenia. This is possibly secondary to a medication (antibiotics). We have stopped the antibiotics. We will repeat the platelet and creatinine level again tomorrow. 5. Atrial fibrillation. Due to GI bleeding we did not start the patient on anticoagulation. Patient was on Digoxin, however, due to abnormal level we will hold the digoxin. Patient's rate is controlled. Also patient was on diltiazem however we are holding this medication due to low blood pressure. 6. Chronic pain. Patient is on gabapentin. 7. Secondary hyperparathyroidism. We will continue patient on PhosLo and vitamin D. 8. GI prophylaxis. Patient is on Protonix. 9. Diastolic heart failure. Will continue patient on dialysis. Patient had one session of dialysis yesterday. Patient was on diltiazem and Digoxin, however, we are holding these medications. 10. Deep venous thrombosis (DVT) prophylaxis. Patient is on thromboembolism deterrents (TEDs) and sequentials secondary to GI bleeding and. 11. Moderate to severe aortic stenosis. Patient is a poor candidate for alveolar replacement. At this time patient is stable. My preceptor for this patient encounter was Dr. Autumn Fajardo . The preceptor was physically present in the building during the encounter and was fully available. As needed, all aspects of the patient interview, examination, medical decision making process, and medical care plan development were reviewed and approved by the preceptor. The preceptor is aware and concurs with the plan as stated in the body of this note and will attest to such by his/her cosignature. MARIA ALEJANDRA
--- NOTE | 2017-03-29 20:22 | IPN ---
DATE: 03/29/2017 Mr. Fernandez is seen this morning on his bedside in intensive care unit. He was admitted with rectal bleeding and underwent ligation of an arterial bleed. I discussed with Dr. Burns who explained the patient has multiple small ulcers in addition to one chronic ulcer and the bleeder was slightly above the ulcer. At this point, he has no active bleeding and has received another unit of packed RBCs already this morning, making a total of 5 units so far. The patient has some cough. He denies any fever or chills. He has no nausea or vomiting. PHYSICAL EXAMINATION: Temperature 98.8 degrees Fahrenheit, heart rate 88 per minute and respiratory rate 16 per minute. Blood pressure 96/55 mmHg and oxygen saturation 94% on room air. Head: Is atraumatic. Pupils are equal and reactive to light and sclera is anicteric. Neck is supple and jugular venous distention (JVD) is mildly elevated. He is edentulous and without any thrush or ulcers. Heart: Sounds are irregular in rhythm. Lungs: Clear to auscultation bilaterally. Abdomen: Soft and nontender. Bowel sounds are normal. Extremities have no cyanosis or clubbing. He has arteriovenous (AV) fistula in his right forearm and has bilateral [id number] amputations. Today's labs show a WBC count of 7.7, hemoglobin 7.2 and hematocrit 22.6. Sodium 139 and potassium 3.9. BUN 21 and creatinine 3.65. PROBLEMS: 1. Recurrent rectal bleeding. The patient has received 5 units of packed RBCs. I am concerned about possibility of volume overload. We will hold off on further transfusion and try to ultrafiltrate for 2 liters fluid removal and then transfuse 1 unit during hemodialysis today. 2. End-stage renal disease. The patient received his regular hemodialysis treatment yesterday. Today we will perform only 2 hours of ultrafiltration for 2 liters fluid removal in order to prevent his volume status worsening with blood transfusion. 3. Acute blood loss anemia. The patient has received a total of 5 units of packed RBCs so far. One more unit will be transfused during dialysis today. The patient has no active bleeding. His hematocrit is being monitored every few hours. 4. Hyperkalemia, potassium level has corrected with hemodialysis. At this point, no intervention is indicated and his renal profile will be checked again tomorrow morning. DISPOSITION: From a renal standpoint, the patient can be transferred out of intensive care unit to progressive care unit.
[2017-03-30] VITALS: BP 98/54
[2017-03-30 04:00] VITALS: BP 112/53
[2017-03-30 05:32] LABS: ALBUMIN 2.3 GM/DL (3.2-5.2); ALBUMIN/GLOBULIN RATIO 0.72 (1.00-1.93); BILIRUBIN,TOTAL 0.4 MG/DL (0.2-1.0); CALCIUM LEVEL 7.6 MG/DL (8.8-10.2); CREATININE FOR GFR 4.92 MG/DL (0.70-1.30); GLOMERULAR FILTRATION RATE 15.2 (>49); MAGNESIUM LEVEL 1.8 MG/DL (1.8-2.4); POTASSIUM SERUM 4.3 MEQ/L (3.5-5.1); TOTAL PROTEIN 5.5 GM/DL (6.4-8.2)
[2017-03-30 05:37] LABS: BASO % 0.3 % (0.0-1.0); EOS # 0.2 K/mm3 (0.0-0.50); EOS % 1.6 % (0.0-3.0); LARGE UNSTAINED CELL # 0.1 K/mm3 (0.0-0.4); LARGE UNSTAINED CELL % 0.8 % (0.0-4.0); LYMPH # 1.6 K/mm3 (1.5-4.5); MEAN CORPUSCULAR HEMOGLOBIN 29.1 pg (27.0-33.0); MEAN CORPUSCULAR HGB CONC 32.7 g/dl (32.0-36.5); MEAN CORPUSCULAR VOLUME 89.1 fl (80.0-96.0); MONO # 0.4 K/mm3 (0.0-0.8); MONO % 4.9 % (0.0-5.0); NEUTROPHILS # 6.6 K/mm3 (1.8-7.7); NEUTROPHILS % 74.5 % (36.0-66.0); PLATELET COUNT, AUTOMATED 101 k/mm3 (150-450); RED CELL DISTRIBUTION WIDTH 17.5 % (11.5-14.5); WHITE BLOOD COUNT 8.8 K/mm3 (4.0-10.0)
[2017-03-30 07:53] VITALS: BP 99/52
[2017-03-30] MEDS: PANTOPRAZOLE 40MG INJ (PROTONIX) (C9113) IV SCH ×2 (08:43→20:06)
[2017-03-30] MEDS: SODIUM CHLORIDE NASAL 0.65% SPRAY BTL (OCEAN) SCH ×2 (08:43→20:07)
[2017-03-30] MEDS: GABAPENTIN 300 MG CAP PO SCH ×3 (08:44→20:06)
[2017-03-30] MEDS: VITAMIN D 1,000 INTERNATIONAL UNITS TABLET PO SCH (08:44)
[2017-03-30] MEDS: DOCUSATE SODIUM 100 MG CAP PO SCH ×2 (08:44→20:06)
[2017-03-30] MEDS: CALCIUM ACETATE 667 MG GELCAP PO SCH (08:44)
[2017-03-30 09:28] LABS: DIGOXIN LEVEL 1.9 NG/ML (0.5-2.0)
[2017-03-30 11:30] VITALS: BP 103/51
[2017-03-30 15:48] VITALS: BP 105/58
--- NOTE | 2017-03-30 17:16 | IPN ---
DATE: 03/30/2017 SUBJECTIVE: Mr. Fernandez is a 66-year-old male who was seen and examined at the bedside. The patient denies chest pain, orthopnea or paroxysmal nocturnal dyspnea. The patient also denies nausea, vomiting, diarrhea, or constipation. Yesterday, the patient had received blood for a total of 6 units. The patient also had ultrafiltration for 2 liter fluid removal, which was performed by nephrology. Today, the patient denies any new symptoms. The patient had one episode of a small blood per rectum; however, the patient is stable at this time and there is no report of blood per rectum today. PHYSICAL EXAMINATION: VITAL SIGNS: Temperature 99.4, pulse 87, respiratory rate 18, blood pressure 99/52, pulse oximetry 96% on room air. Total intake from yesterday 1470 and total output 2000. GENERAL APPEARANCE: The patient was lying in bed, no acute distress. The patient was awake, alert, and oriented to time, place and person. HEENT: Normocephalic, atraumatic. Pupils are equal and reactive to light. Oral mucosa is moist. NECK: Soft and supple. The patient has a mild elevated jugular venous distention (JVD). HEART: Irregularly irregular. RESPIRATORY: Clear breath sounds bilaterally. Good air movement. ABDOMEN: Soft, nontender. Positive bowel sounds in all quadrants. EXTREMITIES: The patient has amputations below the knees bilaterally. LABORATORY DATA: White blood cells 8.8, red blood cells 3.05, hemoglobin 8.9, hematocrit 27.2, MCV 89.1, MCH 29.1, MCHC 32.7, RDW 17.5, platelet count 101, neutrophil percentage 24.5, lymphocyte percentage 18, monocyte percentage 4.9, eosinophil percentage 1.6, basophil percentage 0.3, leukocyte percentage 0.8. Sodium 136, potassium 4.3, chloride 101, carbon dioxide 27, anion gap 8, BUN 32, creatinine 4.92, GFR 15.2, fasting glucose 98, estimated mean plasma glucose 108 , hemoglobin A1/c 5.4, calcium 7.6, magnesium 1.8, total bilirubin 0.4, AST 13, ALT 17, alkaline phosphatase 86, total protein 5.5, albumin 2.3. Digoxin level today 1.9. ASSESSMENT AND PLAN: 1. Recurrent gastrointestinal bleeding. Yesterday, the patient received a total of 6 units of red blood cells. The patient's hemoglobin and hematocrit are stable up to now. The patient has had one episode of ultrafiltration, which was done for 2 hours and 2 liters of fluid was removed by nephrology. At this time, the patient is stable. We will continue monitoring patient. If patient is stable today, we may be able to transfer the patient to medical/surgical tomorrow. I spoke with Dr. Cade. At this time, there are no further recommendations from Dr. Cade. 2. End stage renal disease. The patient is scheduled to have dialysis tomorrow. Yesterday, the patient had ultrafiltration for two hours and 2 liters of fluid was removed. This is managed by nephrology. 3. Leukocytosis. This has resolved. 4. Thrombocytopenia. It is improving. This is possibly secondary to medications (antibiotics); however, the patient is not on antibiotics at this time. 5. Atrial fibrillation. At this time, the patient's rate is controlled. The patient was on anticoagulation; however, due to gastrointestinal, we have stopped anticoagulation. The patient was on digoxin; however, the patient has abnormal elevated level of digoxin and therefore we held the medication at this time. We checked the digoxin level and it was in the normal range. However, the patient' s rate is controlled at this time. The patient was also no diltiazem; however, we held diltiazem due to low blood pressure. 6. Chronic back pain. The patient is on gabapentin. 7. Secondary hyperparathyroidism. The patient is on PhosLo and vitamin D. 8. Gastrointestinal prophylaxis. The patient is on Protonix. 9. Diastolic heart failure. The patient is on dialysis to prevent hypervolemia. The patient had ultrafiltration yesterday and 2 liters of fluid was removed. The patient has dialysis tomorrow. 10. Deep vein thrombosis (DVT) prophylaxis. The patient is on thromboembolic compression stockings (TEDS) and sequential compression device (SCD) and we are preventing using anticoagulation due to gastrointestinal bleeding. 11. Moderate to severe aortic stenosis. The patient is a poor candidate for valvular replacement. 12. Hyperkalemia. At this time, the patient's potassium level is in the normal range; however, it is corrected with hemodialysis. My preceptor for this patient encounter was Dr. Fajardo. The preceptor was physically present in the building during the encounter and was fully available. As needed, all aspects of the patient interview, examination, medical decision making process, and medical care plan development were reviewed and approved by the preceptor. The preceptor is aware and concurs with the plan as stated in the body of this note and will attest to such by his/her cosignature. MARIA ALEJANDRA
[2017-03-30 19:14] VITALS: BP 107/55
--- NOTE | 2017-03-30 20:42 | IPN ---
DATE: 03/30/2017 Mr. eFrnandez is seen this morning on his bedside. He is feeling better today and denies any rectal bleeding. Nursing staff reports that he did have a bowel movement and there was no visible blood. The patient denies any dyspnea, chest pain, nausea or vomiting. He did receive 2 units of packed red blood cells (RBCs) yesterday with two hours of ultrafiltration. PHYSICAL EXAMINATION: Temperature 98.4 degrees Fahrenheit, heart rate 90 per minute and respiratory rate 18 per minute. Blood pressure 107/55 mmHg and oxygen saturation 98%. Head is atraumatic. Neck is supple and without jugular venous distension (JVD) or thyroid enlargement. There is no oral thrush or ulcers. Ears, nose and throat are unremarkable. Heart exam reveals a irregular rhythm. Lungs clear to auscultation bilaterally. Abdomen soft and nontender and without a palpable organomegaly. Extremities have no cyanosis or clubbing. He has bilateral [id number] amputations. Today's labs show white blood cell (WBC) count 8.8, hemoglobin 8.9 and hematocrit 27.2. Platelets 101. A digoxin level is 1.9. Sodium 136 and potassium 4.3. BUN 32 and creatinine 4.92. The rest of his chemistry is essentially unchanged. PROBLEMS: 1. End-stage renal disease. The patient is regularly dialyzed on Wednesday, Wednesday and Wednesday schedule. He was partially dialyzed yesterday while he had almost full treatment on Wednesday. We will plan to dialyze him tomorrow which is his regular day. 2. Acute blood loss anemia with rectal bleeding. Rectal bleeding seems to have stopped since the bleeder was ligated. The patient has received a total of 6 units of packed red blood cell during this admission alone. His anemia has now improved. 3. Congestive heart failure. Volume status seems to be reasonably well compensated. Will plan to dialyze him tomorrow and will try to remove another 2 to 3 liters of fluid as tolerated. DISPOSITION: From a renal standpoint, the patient can be transferred to a regular medical floor.
[2017-03-31] VITALS: BP 95/50
[2017-03-31 04:00] VITALS: BP 109/53
[2017-03-31 04:42] LABS: BASO % 0.3 % (0.0-1.0); EOS # 0.2 K/mm3 (0.0-0.50); EOS % 2.9 % (0.0-3.0); LARGE UNSTAINED CELL # 0.1 K/mm3 (0.0-0.4); LARGE UNSTAINED CELL % 1.2 % (0.0-4.0); LYMPH # 1.5 K/mm3 (1.5-4.5); LYMPH % 18.5 % (24.0-44.0); MEAN CORPUSCULAR HGB CONC 31.9 g/dl (32.0-36.5); MEAN CORPUSCULAR VOLUME 90.9 fl (80.0-96.0); MONO # 0.4 K/mm3 (0.0-0.8); MONO % 4.8 % (0.0-5.0); NEUTROPHILS # 5.8 K/mm3 (1.8-7.7); NEUTROPHILS % 72.3 % (36.0-66.0); PLATELET COUNT, AUTOMATED 117 k/mm3 (150-450); RED CELL DISTRIBUTION WIDTH 17.8 % (11.5-14.5)
[2017-03-31 05:16] LABS: ALBUMIN 2.2 GM/DL (3.2-5.2); ALBUMIN/GLOBULIN RATIO 0.67 (1.00-1.93); BILIRUBIN,TOTAL 0.4 MG/DL (0.2-1.0); CALCIUM LEVEL 7.7 MG/DL (8.8-10.2); CREATININE FOR GFR 6.44 MG/DL (0.70-1.30); GLOMERULAR FILTRATION RATE 11.2 (>49); POTASSIUM SERUM 4.7 MEQ/L (3.5-5.1); TOTAL PROTEIN 5.5 GM/DL (6.4-8.2)
[2017-03-31 08:00] VITALS: BP 91/55
[2017-03-31] MEDS: SODIUM CHLORIDE NASAL 0.65% SPRAY BTL (OCEAN) SCH ×3 (09:00→20:12)
[2017-03-31] MEDS: PANTOPRAZOLE 40MG INJ (PROTONIX) (C9113) IV SCH ×3 (09:00→20:11)
[2017-03-31] MEDS: CALCIUM ACETATE 667 MG GELCAP PO SCH ×2 (09:00→13:25)
[2017-03-31] MEDS: GABAPENTIN 300 MG CAP PO SCH ×3 (09:00→20:12)
[2017-03-31] MEDS: VITAMIN D 1,000 INTERNATIONAL UNITS TABLET PO SCH ×2 (09:00→13:25)
[2017-03-31] MEDS: DOCUSATE SODIUM 100 MG CAP PO SCH ×3 (09:00→20:11)
[2017-03-31 13:00] VITALS: BP 110/57
--- NOTE | 2017-03-31 13:14 | IPN ---
DATE: 03/31/2017 SUBJECTIVE: Mr. Fernandez is a 66-year-old male who was seen and examined at the bedside. The patient denies chest pain, orthopnea or paroxysmal nocturnal dyspnea. The patient also denies nausea, vomiting, diarrhea or constipation. The patient does not have any gastrointestinal bleeding yesterday. The patient is tolerating orally well. The patient is scheduled to have dialysis today. OBJECTIVE: VITAL SIGNS: Temperature 98, pulse 86, respiratory rate 17, blood pressure 91/5, pulse oximetry 95 on room air. GENERAL APPEARANCE: The patient was lying in bed in no acute distress. The patient was awake, alert and oriented to time, place and person. HEENT: Normocephalic atraumatic. Pupils are equal and reactive to light. Oral mucosa is moist. NECK: Soft and supple. No lymphadenopathy. No thyromegaly. HEART: Irregularly irregular. RESPIRATORY: Clear breath sounds bilaterally. Good air movement. ABDOMEN: Soft, nontender. EXTREMITIES: Patient has amputation below the knee bilaterally. LABORATORY DATA: White blood cells 8, red blood cells 3.28, hemoglobin 9.5, hematocrit 29.8, MCV 90.9, MCH 29, MCHC 31.9, RDW 17.8, platelet count 117, neutrophil percentage 72.3, lymphocyte percentage 18.5, monocyte percentage 4.8, eosinophil percentage 4.9, basophil percentage 0.3, leukocyte percentage 1.2. Sodium 135, potassium 4.7, chloride 101, carbon dioxide 25, anion gap 9, BUN 40, creatinine 6.44, GFR 11.2, fasting glucose 115, calcium 7.7, magnesium 2.0, total bilirubin 0.4, AST 14, ALT 18, alkaline phosphatase 94, total protein 5.5, albumin 2.2. ASSESSMENT AND PLAN: 1. Recurrent gastrointestinal (GI) bleed. The patient's hemoglobin and hematocrit have been stable. Per nursing report, no gastrointestinal bleeding was recorded; however, the patient continued to have normal range heart rate. At this point, since the patient is stable, we will transfer the patient to medical-surgical. 2. End-stage renal disease,. The patient is scheduled to have dialysis today. 3. Hyponatremia. Today, the patient's sodium level is 135. This is possibly hypervolemic, hyponatremic secondary to renal failure. The patient will have dialysis today. We will recheck the sodium level again tomorrow. 4. Leukocytosis/hypovolemic shock. 5. Thrombocytopenia, improving. 6. Atrial fibrillation. At this time, the patient's rate is controlled. The patient is not on anticoagulation due to gastrointestinal bleeding. The patient was on digoxin; however, at this time, we will hold digoxin. Yesterday, we checked the digoxin level and it was in normal range. We will continue to monitor the patient for any abnormal symptoms. 7. Chronic back pain. Patient is on gabapentin. 8. Secondary hyperparathyroidism. The patient is on PhosLo and vitamin D. 9. Gastrointestinal prophylaxis. Patient is on Protonix. 10. Diastolic heart failure. The patient is on dialysis. The patient will receive dialysis today. 11. Deep venous thrombosis (DVT) prophylaxis. Patient is on thromboembolism deterrents (TEDs) and sequentials. However, at this time, due to gastrointestinal bleeding, we do not use anticoagulation. 12. Moderate to severe aortic stenosis. Patient is a poor candidate for valve replacement. 13. Hyperkalemia. This has resolved. My preceptor for this patient encounter was Dr. Cade. The preceptor was physically present in the building during the encounter and was fully available. As needed, all aspects of the patient interview, examination, medical decision making process, and medical care plan development were reviewed and approved by the preceptor. The preceptor is aware and concurs with the plan as stated in the body of this note and will attest to such by his/her cosignature.
--- NOTE | 2017-03-31 13:18 | IPN ---
DATE: 03/31/2017 Mr. Fernandez is seen during hemodialysis this morning. He had no complaints on arrival and is resting comfortably at present. Nursing staff reports that patient was awake and alert on arrival. He did not have any new complaints. He did not have any further rectal bleeding. There is no dyspnea, chest pain, nausea or vomiting reported. On physical exam, temperature 98 degrees Fahrenheit, heart rate 86 per minute and respiratory rate 16 per minute. Blood pressure 91/55 mmHg and oxygen saturation 95% on room air. Head is atraumatic. Ears, nose and throat are unremarkable. Neck is supple and without jugular venous distention (JVD) or thyroid enlargement. Heart sounds are irregular in rhythm. Lungs clear to auscultation bilaterally. Abdomen soft and nontender and without palpable organomegaly. Bowel sounds are normal. Extremities have no cyanosis or clubbing. Skin has no rash or ulcers. He has bilateral gayhp-gur-yssz amputation. Today's labs show WBC count 8.0, hemoglobin 9.5 and hematocrit 29.8. Platelets 117. Sodium 135 and potassium 4.7. BUN 40 and creatinine 6.44. A digoxin level was 1.9 yesterday. PROBLEMS: 1. Recurrent rectal bleeding. No further rectal bleeding since the bleeder was ligated few days ago. At this point, we will continue to watch closely. Patient has known history of rectal ulcers and radiation proctitis. 2. Acute blood loss anemia. His anemia has improved following transfusion of 6 units of packed red blood cells (RBCs). At this point, he is stable and we will continue to monitor closely. 3. End-stage renal disease. Patient is being dialyzed today, which is his regular day. His next dialysis will be scheduled for Wednesday. 4. Atrial fibrillation and ventricular rate is well-controlled. The patient is not a suitable candidate for anticoagulation. Next problem is at this position from renal standpoint, the patient can be discharged back to [facility] tomorrow. He can be transferred to regular medical floor today. MARIA ALEJANDRA
[2017-03-31 15:00] VITALS: BP 115/57
[2017-03-31 22:00] VITALS: BP 111/54
[2017-04-01] MEDS ORDERED: IPRATROPIUM 0.5MG/ALBUTEROL 2.5MG INH SOL UD 3ML (DUONEB)(J7620) NEB PRN (03:00)
--- NOTE | 2017-04-01 03:40 | REPUSA ---
CLINICAL HISTORY: Shortness of breath. COMMENTS: Comparison is made to the prior exam performed on 03/27/2017. The cardiac silhouette is enlarged. There is evidence for pulmonary venous congestion compatible with CHF. There is no definite radiographic evidence for a lung mass or consolidation. Bony structures appear normal. IMPRESSION: 1. Enlarged cardiac silhouette. 2. Pulmonary venous congestion compatible with CHF. Findings have mildly decreased. Thank you for your kind referral of this patient.
[2017-04-01 06:00] VITALS: BP 101/51
[2017-04-01 07:32] LABS: BASO % 0.3 % (0.0-1.0); EOS # 0.1 K/mm3 (0.0-0.50); EOS % 2.2 % (0.0-3.0); LARGE UNSTAINED CELL # 0.1 K/mm3 (0.0-0.4); LARGE UNSTAINED CELL % 1.2 % (0.0-4.0); LYMPH # 0.9 K/mm3 (1.5-4.5); LYMPH % 15.4 % (24.0-44.0); MEAN CORPUSCULAR HEMOGLOBIN 28.8 pg (27.0-33.0); MEAN CORPUSCULAR HGB CONC 31.7 g/dl (32.0-36.5); MEAN CORPUSCULAR VOLUME 90.9 fl (80.0-96.0); MONO # 0.3 K/mm3 (0.0-0.8); MONO % 5.1 % (0.0-5.0); NEUTROPHILS # 4.3 K/mm3 (1.8-7.7); NEUTROPHILS % 75.9 % (36.0-66.0); RED CELL DISTRIBUTION WIDTH 18.1 % (11.5-14.5); WHITE BLOOD COUNT 5.7 K/mm3 (4.0-10.0)
[2017-04-01 07:37] LABS: PLATELET COUNT, AUTOMATED 101 k/mm3 (150-450)
[2017-04-01 07:55] LABS: ALBUMIN 2.1 GM/DL (3.2-5.2); ALBUMIN/GLOBULIN RATIO 0.66 (1.00-1.93); BILIRUBIN,TOTAL 0.4 MG/DL (0.2-1.0); CREATININE FOR GFR 4.85 MG/DL (0.70-1.30); GLOMERULAR FILTRATION RATE 15.5 (>49); POTASSIUM SERUM 4.1 MEQ/L (3.5-5.1); TOTAL PROTEIN 5.3 GM/DL (6.4-8.2)
[2017-04-01 08:57] LABS: MEAN CORPUSCULAR HGB CONC 31.7 g/dl (32.0-36.5); MEAN CORPUSCULAR VOLUME 91.5 fl (80.0-96.0); RED CELL DISTRIBUTION WIDTH 17.9 % (11.5-14.5); WHITE BLOOD COUNT 6.5 K/mm3 (4.0-10.0)
[2017-04-01] MEDS: VITAMIN D 1,000 INTERNATIONAL UNITS TABLET PO SCH (09:51)
[2017-04-01] MEDS: GABAPENTIN 300 MG CAP PO SCH (09:51)
[2017-04-01] MEDS: PANTOPRAZOLE 40MG INJ (PROTONIX) (C9113) IV SCH (09:51)
[2017-04-01] MEDS: CALCIUM ACETATE 667 MG GELCAP PO SCH (09:51)
[2017-04-01] MEDS: DOCUSATE SODIUM 100 MG CAP PO SCH (09:52)
[2017-04-01] MEDS: SODIUM CHLORIDE NASAL 0.65% SPRAY BTL (OCEAN) SCH (09:52)
--- NOTE | 2017-04-01 11:25 | IPN ---
DATE: 04/01/2017 Mr. Fernandez is seen this morning on his bedside. He is sleepy but easily arousable. He continues to have some cough but no fever or chills. He denies any nausea or vomiting. He has a complaint of a sore on his sacral area. PHYSICAL EXAMINATION Temperature 98.4 degrees Fahrenheit, heart rate 92 per minute and respiratory rate 16 per minute. Blood pressure 101/51 mmHg and oxygen saturation 99%. His head is atraumatic. He is edentulous and without oral thrush or ulcers. Pupils equal and reactive to light and sclera is anicteric. Ears, nose and throat are unremarkable. Heart sounds are irregular in rhythm. Lungs sound clear to auscultation. Abdomen is soft and nontender. Bowel sounds are normal. Extremities have no cyanosis or clubbing. He has an AV fistula on his left forearm, which is patent. He has bilateral jojty-lcj-arkw amputation. Today's labs show sodium 136 and potassium 4.1. BUN 24 and creatinine 5.85. WBC count is 5.7, hemoglobin 8.6 and hematocrit 27.2. PROBLEMS: 1. Rectal bleeding due to rectal ulcers and radiation proctitis. There is no more active bleeding. Nursing staff reports that his stool was without any blood. His hematocrit has slight drop since yesterday. We can repeat his CBC and consider transfusing if needed. 2. Acute blood loss anemia. His anemia has improved and remained stable for last couple of days. Today there is a drop in his hematocrit. His CBC is being repeated. There is no active bleeding and there is no emergent need for transfusion. However, if he needs to be transfused depending upon his repeat CBC, then 1 unit of packed RBCs could be given today. 3. End-stage renal disease. The patient was dialyzed yesterday and his next dialysis is scheduled for tomorrow. He is regularly dialyzed on Wednesday, Wednesday and Wednesday. 4. Atrial fibrillation. Ventricular rate is well-controlled. He is not a suitable candidate for anticoagulation. DISPOSITION: From renal standpoint, the patient can be discharged back to [facility] today. He will be scheduled for outpatient dialysis tomorrow.
--- NOTE | 2017-04-03 21:13 | DSES ---
DATE OF ADMISSION: 03/27/2017 DATE OF DISCHARGE: 04/01/2017 PRIMARY CARE PHYSICIAN: Dr. Torres NEPHROLOGISTS: Dr. Jean-Baptiste, Dr. Abraham SURGEON: Dr. De La Rosa in [facility] TRAVERTINE INSTALLER: Dr. Jean-Baptiste, Dr. Abraham and Dr. Burns Arterial suturing secondary to arterial bleeding and arterial suturing to prevent bleeding. PRIMARY DIAGNOSIS: 1. Recurrent gastrointestinal (GI) bleeding. SECONDARY DIAGNOSIS: 1. End-stage renal disease on dialysis. 2. Chronic atrial fibrillation. 3. Peripheral vascular disease. 4. Diabetic mellitus type 2. 5. Secondary hypoparathyroidism. 6. 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 7. Congestive heart failure. 8. Preliminary hypertension. 9. Moderate to severe aortic stenosis. 10. History of internal hemorrhoids. DISCHARGE HOME MEDICATIONS: - acetaminophen 650 mg by mouth every 4 hours as needed for pain - artificial tear one drop both eyes four times a day as needed for dry eyes - aspirin 325 mg by mouth daily - calcium acetate 667 mg by mouth daily - calciferol 1000 mg by mouth daily - digoxin 0.125 mg by mouth daily - Colace 100 mg by mouth twice a day - gabapentin 300 mg by mouth three times a day - metoprolol tartrate 50 mg by mouth twice a day - Nepro and Carbsteady one liquid by mouth daily - Prilosec 20 mg by mouth daily - Refresh Lacri-Lube one dose both eyes at bedtime (q.h.s.). - renal vitamin one tab by mouth daily - fluticasone nasal spray, two sprays in each nostril twice a day HOSPITAL COURSE: Mr. Fernandez is a 66-year-old male with multiple past medical histories, who presented due to gastrointestinal (GI) bleeding. Due to recurrent gastrointestinal (GI) bleeding, Dr. Cade was consulted. The patient made nothing by mouth. Due to having low hemoglobin, the patient received two units of red blood cells. On 02/22/2017, the patient had a colonoscopy, which was done by Dr. Heath and revealed a single shallow solitary ulcer in the distal rectum which was clipped. Dr. Heath performed colonoscopy on 02/28/2017, which revealed congested ulcerative mucus in the distal rectum. This was treated with argon plasma coagulation. The patient is status post rectal polyp biopsy with on 03/09/[address] Madrigal. Intravascular angiogram was initially performed on the right rectal branch by interventional radiology on 03/11/2017. Intravascular angiogram was performed by the interventional radiology on the left rectal branch with Gelfoam. The patient was transferred to [facility] and had flexible sigmoidoscopy, which was done by Dr. De La Rosa, as well as embolization. Findings were ischemic mucosa with and based on the record, the osteotomy of diversion was offered to the patient; however, he and his refused osteotomy. The patient was discharged after having no further episode of blood per rectum and was returned to the [facility]; however, the night before admission, the patient started having gastrointestinal (GI) bleeding and the patient was transferred. After admission, the patient received 2 units of red blood cells. The patient made nothing by mouth and Dr. Burns was consulted, who performed arterial suturing, which prevented bleeding and the bleeding was stopped. The patient continued with the home medication. We also consulted Dr. Jean-Baptiste, since the patient has end-stage renal disease and receiving hemodialysis on Wednesday, Wednesday and Wednesday. However, due to the transfusion, the patient was hypervolemic. The patient received ultrafiltration with two liters taken off. The next day the patient had dialysis. After artery was sutured, the patient was stable and hemoglobin and hematocrit continued to be stable. Due to the gastrointestinal (GI) bleeding, the patient was not started on any anticoagulation. On the day of discharge, the patient was medically stabilized. DISCHARGE PLACEMENT: [facility]. ACTIVITY: Activity as tolerated by the patient. FOLLOWUP: Please followup with Dr. Burns, with primary care, as well as, Dr. Bates, surgeon in [place]. My preceptor for this patient encounter was Dr. Cade. The preceptor was physically present in the building during the encounter and was fully available. As needed, all aspects of the patient interview, examination, medical decision making process, and medical care plan development were reviewed and approved by the preceptor. The preceptor is aware and concurs with the plan as stated in the body of this note and will attest to such by his/her cosignature.
== END 2017-04-01 13:48 | DRG 393 ==
LOC: M ED 15:22 → M ED INP 16:58 → M ICU 19:44 → M MS5PR 03-31 15:00
PROVIDERS: ADMIT Internal Medicine Nephrology; ATTEND Hospitalist
PROC: 0W3P8ZZ Control Bleeding in Gastrointestinal Tract, Via Natural or Artificial Opening Endoscopic (ICD-10-PCS; 2017-03-27)
PROC: 30233N1 Transfusion of Nonautologous Red Blood Cells into Peripheral Vein, Percutaneous Approach (ICD-10-PCS; principal; 2017-03-27 20:25)
DX: K62.6 Ulcer of anus and rectum (principal); N18.6 End stage renal disease; R57.1 Hypovolemic shock; K62.5 Hemorrhage of anus and rectum; N25.81 Secondary hyperparathyroidism of renal origin; I50.32 Chronic diastolic (congestive) heart failure; D62 Acute posthemorrhagic anemia; E87.1 Hypo-osmolality and hyponatremia; Z79.899 Other long term (current) drug therapy; Z79.82 Long term (current) use of aspirin; Z88.0 Allergy status to penicillin; Z88.8 Allergy status to other drugs, medicaments and biological substances; K62.7 Radiation proctitis; I48.91 Unspecified atrial fibrillation; I73.9 Peripheral vascular disease, unspecified; E11.9 Type 2 diabetes mellitus without complications; I35.0 Nonrheumatic aortic (valve) stenosis; Z85.46 Personal history of malignant neoplasm of prostate; Z89.511 Acquired absence of right leg below knee; Z89.512 Acquired absence of left leg below knee; E55.9 Vitamin D deficiency, unspecified; E87.5 Hyperkalemia; D72.829 Elevated white blood cell count, unspecified; D69.6 Thrombocytopenia, unspecified; M54.5 Low back pain

== ENCOUNTER → 2017-05-18 | Outpatient (REF) | payer MEDICARE, MEDICAID ==
[~2017-05-18] MED LIST changes: -ACET-654 PO; +ACET1TAB17 PO; +ARTI99.0 OU; +ATOR40TA75 PO; +CALC1CAP PO; +COLA100C5 PO; -DOCU100C PO; +DOCU100C16 PO; +JANU100T PO; +LACROIN OU; +LEVA1TAB2 PO; -LEVA500T PO; -METO50TA2 PO; +METO50TA7 PO; +NEPRLIQ3 PO; +PRIL20TA2 PO; +RENA1TAB PO; +SALI0.6523; -SALI0.653; +VITA-121 PO; +VITA-182 PO; -VITA100041 PO
[2017-05-18 10:06] LABS: ADD MANUAL DIFFER YES; DIFF SLIDE NUMBER 137; MEAN CORPUSCULAR HEMOGLOBIN 27.4 pg (27.0-33.0); MEAN CORPUSCULAR VOLUME 91.1 fl (80.0-96.0); PLATELET COUNT, AUTOMATED 102 k/mm3 (150-450); RED CELL DISTRIBUTION WIDTH 16.3 % (11.5-14.5); WHITE BLOOD COUNT 7.5 K/mm3 (4.0-10.0)
--- NOTE | 2017-05-18 10:07 | REP ---
CHEST, TWO VIEWS: HISTORY: Congestion. COMPARISON: 04/01/2017 An increase in interstitial markings is present in the lungs. A small right pleural effusion is present. The cardiac silhouette is enlarged. The pulmonary vasculature is prominent. IMPRESSION: Findings consistent with congestive heart failure. Signed by Ramana Sutherland MD 05/18/2017 10:24 A
[2017-05-18 10:56] LABS: EOSINOPHILS 6 % (0-5)
== END ==
LOC: SKLAB5 08:12
PROVIDERS: ATTEND Internal Medicine
DX: R50.9 Fever, unspecified (principal)

== ENCOUNTER → 2017-05-19 | Outpatient (REF) | payer MEDICARE, MEDICAID ==
[2017-05-19 13:24] LABS: CALCIUM LEVEL 9.2 MG/DL (8.8-10.2); CREATININE FOR GFR 3.97 MG/DL (0.70-1.30); GLOMERULAR FILTRATION RATE 19.5 (>49); POTASSIUM SERUM 4.2 MEQ/L (3.5-5.1)
== END ==
LOC: SKLAB5 11:53
PROVIDERS: ATTEND Internal Medicine
DX: N18.9 Chronic kidney disease, unspecified (principal)

== ENCOUNTER → 2017-05-28 | Outpatient (REF) | payer MEDICARE, MEDICAID ==
--- NOTE | 2017-05-29 09:32 | NOCOX ---
DATE OF PROCEDURE: 05/28/2017 Nocturnal oximetry was performed on room air. The resting oxygen saturation prior to the study was not documented. The total recording time was 8 hours and 21 minutes. Heart rate ranged from 34-129. Oxygen saturation ranged from 69%-100% . The total time with an oxygen saturation less than 88% was 12 minutes and 34 seconds. The longest continuous time with a saturation less than 88% was 1 minute and 6 seconds. There were significant variable desaturations throughout the evening which were associated with heart rate variability. There was a Nitin-Tsang pattern. IMPRESSION: Variable desaturations in a Nitin-Tsang respiration pattern with a significant hypoxia. MTDD
== END ==
LOC: SKLAB5 07:19
PROVIDERS: ATTEND Internal Medicine
DX: I50.9 Heart failure, unspecified (principal)

== ENCOUNTER → 2017-07-20 | Outpatient (REF) | payer MEDICARE, MEDICAID | LOC: M SFHCPLAZ 17:11 | PROVIDERS: ATTEND Family Medicine | DX: R19.7 Diarrhea, unspecified (principal) | CPT/HCPCS: 87493; G0463 ==

== ENCOUNTER 2017-09-22 07:16 | Day surgery (SDC) | payer MEDICARE, MEDICAID ==
[~2017-09-22] VITALS: Ht 188 cm; Wt 84.4 kg
[~2017-09-22 07:16] MED LIST changes: +ACETAMINOPHEN 325 MG TAB PO PRN; +BSS with VANC/TOB/EPI for EYE CASES IR ONE; +CYCLOPENTOLATE 2% OPHTH SOLN 2ML BTL OD ONE; +LIDOCAINE 3.5 % 1ML OPHTH TOPICAL GEL OU ONE; +OFLOXACIN 0.3 % (OCUFLOX) OPTH SOL 5ML OD ONE; +PHENYLEPHRINE 2.5% OPHTH SOL 2ML OD ONE; +PROPARACAINE 0.5% OPHTH SOL 15ML OD PRN; +TROPICAMIDE 1% OPHTH SOLN 2ML OD ONE
[2017-09-22] MEDS ORDERED: LIDOCAINE 1% SDV 5 ML VIAL As Ordered ONE (09:15)
[2017-09-22] MEDS ORDERED: HEALON DUET (HEALON 10MG/ML 0.55ML & HEALON ENDOCOAT 30MG/ML 0.85ML) As Ordered ONE (09:15)
[2017-09-22] MEDS ORDERED: MOXIFLOXACIN IN BSS 0.25MG/0.25ML INTRACAMERAL INJ (OR EYE ONLY)(J2280) As Ordered ONE (09:15)
[2017-09-22] MEDS ORDERED: POVIDONE-IODINE 5% OPHTH PREP SOL 30ML As Ordered ONE (09:15)
[2017-09-22] MEDS ORDERED: TRIAMCINOLONE PRES FR 40 MG/ML 1ML(TRIESENCE)(OR EYE ONLY)(J3300 PER 1MG) As Ordered ONE (09:15)
[2017-09-22] MEDS ORDERED: fentaNYL 100 MCG/2 ML INJECTION (J3010) As Ordered ONE ×2 (09:33→09:34)
[2017-09-22] MEDS ORDERED: MIDAZOLAM INJ 2 MG/2 ML VIAL (J2250) As Ordered ONE (09:33)
[2017-09-22] MEDS ORDERED: AcetaZOLAMIDE 500 MG ER CAP PO ONE (10:15)
[2017-09-22] MEDS ORDERED: TRIMETHOBENZAMIDE 300 MG CAP PO PRN (10:15)
[2017-09-22] MEDS ORDERED: KETOROLAC 0.5% OPHTH SOLN OD ONE (10:15)
[2017-09-22 10:20] VITALS: BP 91/52
== END 2017-09-22 10:40 | disposition home or self-care (01) ==
LOC: M SDC 07:16
PROVIDERS: ATTEND Ophthalmology
DX: H26.9 Unspecified cataract (principal); I12.0 Hypertensive chronic kidney disease with stage 5 chronic kidney disease or end stage renal disease; E78.00 Pure hypercholesterolemia, unspecified; E11.40 Type 2 diabetes mellitus with diabetic neuropathy, unspecified; K58.9 Irritable bowel syndrome, unspecified; E11.22 Type 2 diabetes mellitus with diabetic chronic kidney disease; J44.9 Chronic obstructive pulmonary disease, unspecified; N18.6 End stage renal disease; D64.9 Anemia, unspecified; I48.2 Chronic atrial fibrillation; Z88.0 Allergy status to penicillin; Z88.8 Allergy status to other drugs, medicaments and biological substances; Z79.899 Other long term (current) drug therapy; Z79.82 Long term (current) use of aspirin; Z85.46 Personal history of malignant neoplasm of prostate; Z89.511 Acquired absence of right leg below knee; Z89.512 Acquired absence of left leg below knee; Z92.3 Personal history of irradiation; Z92.21 Personal history of antineoplastic chemotherapy; Z86.11 Personal history of tuberculosis; Z87.19 Personal history of other diseases of the digestive system; Z87.891 Personal history of nicotine dependence; Z99.2 Dependence on renal dialysis
CPT/HCPCS: 66984; 84132; J2250; J2280; J3010; J3300; V2632

== ENCOUNTER 2018-01-11 06:35 | Day surgery (SDC) | payer MEDICARE, MEDICAID ==
[~2018-01-11 06:35] MED LIST changes: -ACET1TAB17 PO; +ACETAMINOPHEN 325 MG TAB PO; -ACETAMINOPHEN 325 MG TAB PO PRN; -ARTI99.0 OU; -ASPI1TAB PO; -ASPI325T PO; -ATOR40TA75 PO; -BISA10SU4 PR; -BSS with VANC/TOB/EPI for EYE CASES IR ONE; -CALC1CAP PO; -CALCIUM PO; -CARD240T2 PO; -CIPRHCOTIC AU; -COLA100C5 PO; -CYCLOPENTOLATE 2% OPHTH SOLN 2ML BTL OD ONE; -DIGO0.12 PO; -DILT0.05 PO; -DILT300C PO; -DILT30TA PO; -DILT60TA PO; -DOCU100C16 PO; -ECOT81TA5 PO; -ELIQ2.5T PO; -ENEM1ENE4 PR; -GABA-279 PO; -GABA-282 PO; -GLUC1KIT SC; -HYDR-3713 PO; -JANU100T PO; -LACROIN OU; -LEVA1TAB2 PO; -LIDO5TD TD; -LIDOCAINE 3.5 % 1ML OPHTH TOPICAL GEL OU ONE; -METO50TA7 PO; -MILKSUS PO; -MILKSUS5 PO; -NEPHTAB PO; -NEPRLIQ PO; -NEPRLIQ3 PO; -NORCOTAB PO; -OCEA0.654; -OFLOXACIN 0.3 % (OCUFLOX) OPTH SOL 5ML OD ONE; -OMEP20TA PO; -PHENYLEPHRINE 2.5% OPHTH SOL 2ML OD ONE; -PRIL20TA2 PO; -PROC1INJ SC; -PROPARACAINE 0.5% OPHTH SOL 15ML OD PRN; -RENA1TAB PO; -RENATAB5 PO; -RENV2TAB PO; -SALI0.6523; +SLF 3 ML SYR IV; -TOPR50TA PO; -TROPICAMIDE 1% OPHTH SOLN 2ML OD ONE; -VIT D PO; -VITA-121 PO; -VITA-182 PO; -VITA100066 PO; -[UNRECOGNIZED DRUG - CODE] AU
[2018-01-11] MEDS ORDERED: LIDOCAINE 1% MDV 20ML VIAL SQ (06:45)
[2018-01-11] MEDS: CYCLOPENTOLATE 2% OPHTH SOLN 2ML BTL OS (06:55)
[2018-01-11] MEDS: LIDOCAINE 3.5 % 1ML OPHTH TOPICAL GEL OU (07:00)
[2018-01-11] MEDS: PHENYLEPHRINE 2.5% OPHTH SOL 2ML OS (07:00)
[2018-01-11] MEDS ORDERED: PHENYLEPHRINE HCL 10 % OPHTH. SOL 5ML OS (07:00)
[2018-01-11] MEDS: TROPICAMIDE 1% OPHTH SOLN 2ML OS (07:05)
[2018-01-11] MEDS: OFLOXACIN 0.3 % (OCUFLOX) OPTH SOL 5ML OS (07:10)
[2018-01-11 07:18] LABS: BEDSIDE GLUCOSE 80 MG/DL (80-115)
[2018-01-11] MEDS ORDERED: fentaNYL 100 MCG/2 ML INJECTION (J3010) As Ordered (07:32)
[2018-01-11] MEDS ORDERED: MIDAZOLAM INJ 2 MG/2 ML VIAL (J2250) As Ordered (07:32)
[2018-01-11] MEDS: TRYPAN BLUE 0.06 % 2.25 ML OPHTH SYR (VISIONBLUE) As Ordered ×3 (08:00→08:15)
[2018-01-11] MEDS: POVIDONE-IODINE 5% OPHTH PREP SOL 30ML As Ordered (08:05)
[2018-01-11] MEDS: LIDOCAINE 2% W/EPIN INJ 20ML **PRES FREE As Ordered (08:05)
[2018-01-11] MEDS: LIDOCAINE 1% SDV 5 ML VIAL As Ordered (08:05)
[2018-01-11] MEDS: TRIAMCINOLONE PRES FR 40 MG/ML 1ML(TRIESENCE)(OR EYE ONLY)(J3300 PER 1MG) As Ordered (08:14)
[2018-01-11] MEDS: HEALON DUET (HEALON 10MG/ML 0.55ML & HEALON ENDOCOAT 30MG/ML 0.85ML) As Ordered (08:14)
[2018-01-11] MEDS: BSS with VANC/TOB/EPI for EYE CASES IR (08:14)
[2018-01-11] MEDS: MOXIFLOXACIN IN BSS 0.25MG/0.25ML INTRACAMERAL INJ (OR EYE ONLY)(J2280) As Ordered (08:14)
[2018-01-11] MEDS ORDERED: TRIMETHOBENZAMIDE 300 MG CAP PO (08:45)
[2018-01-11] MEDS: AcetaZOLAMIDE 500 MG ER CAP PO (08:50)
== END 2018-01-11 09:33 | disposition home or self-care (01) ==
LOC: M SDC 06:35
DX: H26.9 Unspecified cataract (principal); H57.03 Miosis; H21.81 Floppy iris syndrome; K62.89 Other specified diseases of anus and rectum; R09.82 Postnasal drip; H60.392 Other infective otitis externa, left ear; L21.9 Seborrheic dermatitis, unspecified; N18.6 End stage renal disease; Z99.2 Dependence on renal dialysis; I13.2 Hypertensive heart and chronic kidney disease with heart failure and with stage 5 chronic kidney disease, or end stage renal disease; D50.0 Iron deficiency anemia secondary to blood loss (chronic); E11.22 Type 2 diabetes mellitus with diabetic chronic kidney disease; K58.9 Irritable bowel syndrome, unspecified; I50.30 Unspecified diastolic (congestive) heart failure; I48.91 Unspecified atrial fibrillation; I35.0 Nonrheumatic aortic (valve) stenosis; I27.20 Pulmonary hypertension, unspecified; Z85.46 Personal history of malignant neoplasm of prostate; I73.9 Peripheral vascular disease, unspecified; Z89.511 Acquired absence of right leg below knee; Z89.512 Acquired absence of left leg below knee; Z87.891 Personal history of nicotine dependence; Z79.899 Other long term (current) drug therapy; Z79.82 Long term (current) use of aspirin; Z79.84 Long term (current) use of oral hypoglycemic drugs; Z74.09 Other reduced mobility; Z88.0 Allergy status to penicillin; Z88.8 Allergy status to other drugs, medicaments and biological substances
CPT/HCPCS: 66982

== ENCOUNTER 2018-05-26 07:52 | Day surgery (SDC) | payer MEDICARE, MEDICAID ==
[2018-05-26] MEDS ORDERED: NS 1,000 ML IV (08:45)
[2018-05-26] MEDS ORDERED: PHENYLephrine HCL 500 MCG/5 ML (100MCG/ML) SYRINGE (J2370) As Ordered ×2 (10:04→10:19)
[2018-05-26] MEDS ORDERED: LIDOCAINE 2% INJ 100 MG/5 ML SDV (FOR ANES.) As Ordered (10:04)
[2018-05-26] MEDS ORDERED: PROPOFOL 200 MG/20 ML VIAL As Ordered (10:04)
== END 2018-05-26 11:10 | disposition home or self-care (01) ==
LOC: M OPP 11:10
DX: K62.6 Ulcer of anus and rectum (principal); K64.8 Other hemorrhoids; K57.30 Diverticulosis of large intestine without perforation or abscess without bleeding; K92.1 Melena; D69.6 Thrombocytopenia, unspecified; D64.9 Anemia, unspecified; Z79.82 Long term (current) use of aspirin; Z79.84 Long term (current) use of oral hypoglycemic drugs; Z79.899 Other long term (current) drug therapy; Z88.0 Allergy status to penicillin; I35.8 Other nonrheumatic aortic valve disorders; I48.91 Unspecified atrial fibrillation; I27.20 Pulmonary hypertension, unspecified; E11.51 Type 2 diabetes mellitus with diabetic peripheral angiopathy without gangrene; N18.6 End stage renal disease; E78.5 Hyperlipidemia, unspecified; I50.30 Unspecified diastolic (congestive) heart failure; Z89.512 Acquired absence of left leg below knee; Z89.511 Acquired absence of right leg below knee; I77.0 Arteriovenous fistula, acquired; K21.9 Gastro-esophageal reflux disease without esophagitis; Z87.19 Personal history of other diseases of the digestive system; Z85.46 Personal history of malignant neoplasm of prostate; Z92.3 Personal history of irradiation; Z87.891 Personal history of nicotine dependence
CPT/HCPCS: 45382

== ENCOUNTER → 2018-05-26 | Outpatient (CLI) | payer MEDICARE, MEDICAID ==
[2018-05-26 08:09] LABS: BASO % 0.2 % (0.0-1.0); EOS # 0.2 10^3/uL (0.0-0.50); EOS % 3.1 % (0.0-3.0); HEMOGLOBIN 10.9 g/dl (13.5-17.5); IMMATURE GRANULOCYTE % 0.3 % (0-3.0); LYMPH # 0.8 10^3/uL (1.5-4.5); LYMPH % 13.6 % (24.0-44.0); MEAN CORPUSCULAR HEMOGLOBIN 23.4 pg (27.0-33.0); MEAN CORPUSCULAR HGB CONC 28.7 g/dl (32.0-36.5); MEAN CORPUSCULAR VOLUME 81.7 fl (80.0-96.0); MONO # 0.7 10^3/uL (0.0-0.8); MONO % 11.7 % (0.0-5.0); NEUTROPHILS # 4.4 10^3/uL (1.8-7.7); NEUTROPHILS % 71.1 % (36.0-66.0); RED BLOOD COUNT 4.65 10^6/uL (4.30-6.10); RED CELL DISTRIBUTION WIDTH 17.3 % (11.5-14.5); WHITE BLOOD COUNT 6.2 10^3/uL (4.0-10.0)
[2018-05-26 08:17] LABS: INR 1.25; PROTHROMBIN TIME 15.9 SECONDS (12.1-14.4)
[2018-05-26 08:18] LABS: PARTIAL THROMBOPLASTIN TIME 32.6 SECONDS (25.4-37.6)
[2018-05-26 08:34] LABS: ANION GAP 10 MEQ/L (8-16); BLOOD UREA NITROGEN 30 MG/DL (7-18); CARBON DIOXIDE LEVEL 29 MEQ/L (21-32); CHLORIDE LEVEL 107 MEQ/L (98-107); CREATININE FOR GFR 6.31 MG/DL (0.70-1.30); GLOMERULAR FILTRATION RATE 11.4 (>49); GLUCOSE, FASTING 89 MG/DL (70-100); SODIUM LEVEL 146 MEQ/L (136-145)
[2018-05-26 08:44] LABS: PLATELET COUNT, AUTOMATED 75 10^3/uL (150-450)
[2018-05-26 08:45] LABS: IMMATURE PLATELET FRACTION % 7.3 % (0.0-10.9); SLIDE REVIEW Report; SOURCE PERIPHERAL SMEAR
== END ==
LOC: M LAB 07:24
DX: K62.6 Ulcer of anus and rectum (principal); D69.6 Thrombocytopenia, unspecified; D64.9 Anemia, unspecified

== ENCOUNTER → 2018-09-21 | Outpatient (REF) | payer MEDICARE, MEDICAID | LOC: M LAB REF 14:08 | DX: L89.153 Pressure ulcer of sacral region, stage 3 (principal); T23.32 Burn of third degree of single finger (nail) except thumb; X10.0XXA Contact with hot drinks, initial encounter; Y92.89 Other specified places as the place of occurrence of the external cause; E11.22 Type 2 diabetes mellitus with diabetic chronic kidney disease; N18.6 End stage renal disease ==

== ENCOUNTER 2018-09-22 10:28 | Inpatient (IN) | payer MEDICARE, MEDICAID ==
[2018-09-22 11:07] LABS: BASO % 0.2 % (0.0-1.0); EOS # 0.1 10^3/uL (0.0-0.50); EOS % 0.7 % (0.0-3.0); HEMATOCRIT 36.5 % (42.0-52.0); IMMATURE GRANULOCYTE % 0.9 % (0-3.0); LYMPH # 0.7 10^3/uL (1.5-4.5); LYMPH % 8.1 % (24.0-44.0); MEAN CORPUSCULAR HEMOGLOBIN 23.4 pg (27.0-33.0); MEAN CORPUSCULAR HGB CONC 27.4 g/dl (32.0-36.5); MEAN CORPUSCULAR VOLUME 85.3 fl (80.0-96.0); MONO # 0.8 10^3/uL (0.0-0.8); MONO % 8.9 % (0.0-5.0); NEUTROPHILS # 6.9 10^3/uL (1.8-7.7); NEUTROPHILS % 81.2 % (36.0-66.0); PLATELET COUNT, AUTOMATED 143 10^3/uL (150-450); RED BLOOD COUNT 4.28 10^6/uL (4.30-6.10); RED CELL DISTRIBUTION WIDTH 21.5 % (11.5-14.5); WHITE BLOOD COUNT 8.5 10^3/uL (4.0-10.0)
[2018-09-22 11:16] LABS: INR 1.34; PROTHROMBIN TIME 16.7 SECONDS (12.1-14.4)
[2018-09-22 12:02] LABS: ALBUMIN 2.8 GM/DL (3.2-5.2); ALBUMIN/GLOBULIN RATIO 0.62 (1.00-1.93); ALKALINE PHOSPHATASE 137 U/L (45-117); ALT/SGPT 37 U/L (12-78); ANION GAP 13 MEQ/L (8-16); AST/SGOT 45 U/L (7-37); BILIRUBIN,DIRECT 0.3 MG/DL (0.0-0.2); BILIRUBIN,TOTAL 0.7 MG/DL (0.2-1.0); BLOOD UREA NITROGEN 46 MG/DL (7-18); CALCIUM LEVEL 8.9 MG/DL (8.8-10.2); CARBON DIOXIDE LEVEL 26 MEQ/L (21-32); CHLORIDE LEVEL 103 MEQ/L (98-107); CPK CREATINE PHOSPHOKINASE 73 U/L (39-308); GLOMERULAR FILTRATION RATE 9.5 (>42); GLUCOSE, FASTING 130 MG/DL (70-100); LIPASE 276 U/L (73-393); MB/CK RELATIVE INDEX 1.64 (< OR =4); POTASSIUM SERUM 4.7 MEQ/L (3.5-5.1); SODIUM LEVEL 142 MEQ/L (136-145); TOTAL PROTEIN 7.3 GM/DL (6.4-8.2); TROPONIN I 0.12 NG/ML (< 0.10)
[2018-09-22 12:03] LABS: LACTIC ACID SEPSIS PROTOCOL 2.4 MMOL/L (0.4-2.0)
[2018-09-22] MEDS: NS 500 ML IV (13:19)
[2018-09-22 15:05] LABS: PH BODY FLUID 6.935 UNITS (NOT ESTABLISHED); SOURCE, BODY FLUID pH PLEURAL
[2018-09-22] MEDS ORDERED: FLUTICASONE PROP 0.05% NASAL SPRAY 16 GM (FLONASE) NARES (15:15)
[2018-09-22] MEDS ORDERED: ONDANSETRON 4MG/2ML VIAL (J2405) IV (15:15)
[2018-09-22] MEDS ORDERED: VANCOMYCIN HCL 1,000 MG, VIAL MATE ADAPTER 1 EACH in D5W 250 ML IV (15:15)
[2018-09-22 15:23] LABS: LDH LACTATE DEHYDROGENASE 475 U/L (87-241)
[2018-09-22] MEDS ORDERED: GLUCAGON FOR INJ 1 MG VIAL (J1610) SC (15:30)
[2018-09-22] MEDS ORDERED: GLUCOSE 4 GM CHEW TABLET PO (15:30)
[2018-09-22] MEDS ORDERED: DEXTROSE 50% 50 ML SYRINGE IV (15:30)
[2018-09-22] MEDS: SODIUM CHLORIDE 0.9% INJ 10 ML SYR IV (15:35)
[2018-09-22 15:36] LABS: APPEARANCE, BODY FLUID TURBID (CLEAR); PLEURAL FL COLOR RED (COLORLESS); SOURCE, BODY FLUID PLEURAL
[2018-09-22 15:37] LABS: RBC BODY FLUID 3469 10^3/uL (<2); WBC BODY FLUID 1890 /uL (0-10)
[2018-09-22 15:38] LABS: BF DIFF IF INDICATED? YES (NO); BF MONONUCLEAR CELL % 46.7 % (0-0); BF POLYMORPHONUCLEAR CELL % 53.3 % (0-0)
[2018-09-22] MEDS: GABAPENTIN 300 MG CAP PO ×2 (15:58→21:13)
[2018-09-22 16:02] LABS: AMYLASE, BODY FLUID 24 U/L (NOT ESTABLISHED); CHOLESTEROL, BODY FLUID < 50 MG/DL (NOT ESTABLISHED); LDH, BODY FLUID 3601 U/L (NOT ESTABLISHED); SOURCE, BODY FLUID AMYLASE PLEURAL; SOURCE, BODY FLUID CHOL PLEURAL; SOURCE, BODY FLUID GLUCOSE PLEURAL; SOURCE, BODY FLUID LDH PLEURAL; SOURCE, BODY FLUID TRIG PLEURAL; TRIGLYCERIDE, BODY FLUID 87 MG/DL (NOT ESTABLISHED)
[2018-09-22] MEDS: NOREPINEPHRINE BITARTRATE 8 MG in D5W 492 ML IV (16:02)
[2018-09-22 16:07] LABS: ABG BASE EXCESS -1.8 (-2.0-2.0); ABG HCO3 25.5 MEQ/L (22.0-26.0); ABG O2 SATURATION 94.4 % (95.0-99.0); ABG PARTIAL PRESSURE CO2 56.2 mmHg (35.0-45.0); ABG PARTIAL PRESSURE O2 80.5 mmHg (75.0-100.0); ABG STANDARD HCO3 22.9 MEQ/L (22.0-26.0); ABG TOTAL CO2 27.2 MEQ/L (23.0-31.0); ABG pH (ARTERIAL) 7.275 UNITS (7.350-7.450)
[2018-09-22 16:23] LABS: C REACTIVE PROTEIN QUANTITATIV 7.11 MG/DL (0.00-0.30); CPK CREATINE PHOSPHOKINASE 40 U/L (39-308); TROPONIN I 0.13 NG/ML (< 0.10)
[2018-09-22] MEDS: HumaLOG INSULIN (NovoLOG) PER UNIT SC ×2 (17:30→21:00)
[2018-09-22 18:04] LABS: ABG BASE EXCESS -2.4 (-2.0-2.0); ABG HCO3 24.7 MEQ/L (22.0-26.0); ABG O2 SATURATION 86.3 % (95.0-99.0); ABG PARTIAL PRESSURE CO2 53.7 mmHg (35.0-45.0); ABG PARTIAL PRESSURE O2 57.8 mmHg (75.0-100.0); ABG STANDARD HCO3 22.2 MEQ/L (22.0-26.0); ABG TOTAL CO2 26.4 MEQ/L (23.0-31.0); ABG pH (ARTERIAL) 7.281 UNITS (7.350-7.450)
[2018-09-22 18:11] LABS: BEDSIDE GLUCOSE 114 MG/DL (83-110)
[2018-09-22] MEDS: (RENVELA) SEVELAMER **CARBONate** 800 MG TAB PO (18:17)
[2018-09-22] MEDS: MEROPENEM INJ 500 MG in APPROPRIATE DILUENT 1 EA IV (18:22)
[2018-09-22] MEDS ORDERED: MIDAZOLAM INJ 2 MG/2 ML VIAL (J2250) As Ordered ×3 (18:29→18:30)
[2018-09-22] MEDS ORDERED: LIDOCAINE 1% MDV 20ML VIAL As Ordered (18:30)
[2018-09-22] MEDS ORDERED: FLUMAZENIL 0.5 MG/5 ML VIAL As Ordered (18:42)
[2018-09-22] MEDS ORDERED: DIGOXIN INJ 0.5 MG/2 ML AMP (J1160) As Ordered (18:52)
[2018-09-22] MEDS: DIGOXIN INJ 0.5 MG/2 ML AMP (J1160) IV (18:55)
[2018-09-22] MEDS: LIDOCAINE 1% MDV 20ML VIAL SC (19:30)
[2018-09-22] MEDS: MIDAZOLAM INJ 2 MG/2 ML VIAL (J2250) IV (19:30)
[2018-09-22] MEDS: VANCOMYCIN HCL 1,000 MG, VIAL MATE ADAPTER 1 EACH in D5W 250 ML IV (19:38)
[2018-09-22 19:59] LABS: SOURCE, BODY FLUID ALBUMIN PLEURAL; SOURCE, BODY FLUID TOT PROTEIN PLEURAL; TOTAL PROTEIN, BODY FLUID 5.1 G/DL (NOT ESTABLISHED)
[2018-09-22 20:13] LABS: CPK CREATINE PHOSPHOKINASE 55 U/L (39-308); MB/CK RELATIVE INDEX 3.09 (< OR =4); TROPONIN I 0.14 NG/ML (< 0.10)
[2018-09-22] MEDS: METOPROLOL TART 25 MG TABLET PO (21:00)
[2018-09-22] MEDS: SENOKOT S TAB PO (21:13)
[2018-09-22 21:23] LABS: BEDSIDE GLUCOSE 202 MG/DL (83-110)
[2018-09-23] MEDS: NOREPINEPHRINE BITARTRATE 8 MG in D5W 492 ML IV ×2 (05:02→20:38)
[2018-09-23] MEDS: SODIUM CHLORIDE 0.9% INJ 10 ML SYR IV ×3 (05:11→22:00)
[2018-09-23 05:29] LABS: HEMATOCRIT 36.6 % (42.0-52.0); HEMOGLOBIN 10.1 g/dl (13.5-17.5); MEAN CORPUSCULAR HEMOGLOBIN 23.1 pg (27.0-33.0); MEAN CORPUSCULAR HGB CONC 27.6 g/dl (32.0-36.5); MEAN CORPUSCULAR VOLUME 83.8 fl (80.0-96.0); PLATELET COUNT, AUTOMATED 169 10^3/uL (150-450); RED BLOOD COUNT 4.37 10^6/uL (4.30-6.10); RED CELL DISTRIBUTION WIDTH 20.9 % (11.5-14.5); WHITE BLOOD COUNT 13.2 10^3/uL (4.0-10.0)
[2018-09-23 05:53] LABS: ABG BASE EXCESS -3.2 (-2.0-2.0); ABG HCO3 25.1 MEQ/L (22.0-26.0); ABG O2 SATURATION 96.8 % (95.0-99.0); ABG PARTIAL PRESSURE O2 101.7 mmHg (75.0-100.0); ABG STANDARD HCO3 21.8 MEQ/L (22.0-26.0); ABG TOTAL CO2 26.9 MEQ/L (23.0-31.0)
[2018-09-23 05:57] LABS: ABG pH (ARTERIAL) 7.228 UNITS (7.350-7.450)
[2018-09-23 05:58] LABS: ABG PARTIAL PRESSURE CO2 61.5 mmHg (35.0-45.0)
[2018-09-23] MEDS: HumaLOG INSULIN (NovoLOG) PER UNIT SC ×7 (06:00→23:28)
[2018-09-23 06:13] LABS: ALBUMIN 2.7 GM/DL (3.2-5.2); ALBUMIN/GLOBULIN RATIO 0.64 (1.00-1.93); ALKALINE PHOSPHATASE 139 U/L (45-117); ALT/SGPT 42 U/L (12-78); ANION GAP 10 MEQ/L (8-16); AST/SGOT 35 U/L (7-37); BILIRUBIN,TOTAL 0.7 MG/DL (0.2-1.0); BLOOD UREA NITROGEN 52 MG/DL (7-18); C REACTIVE PROTEIN QUANTITATIV 7.51 MG/DL (0.00-0.30); CALCIUM LEVEL 8.2 MG/DL (8.8-10.2); CARBON DIOXIDE LEVEL 26 MEQ/L (21-32); CHLORIDE LEVEL 101 MEQ/L (98-107); CREATININE FOR GFR 8.02 MG/DL (0.70-1.30); GLOMERULAR FILTRATION RATE 8.6 (>42); GLUCOSE, FASTING 214 MG/DL (70-100); MAGNESIUM LEVEL 2.1 MG/DL (1.8-2.4); PHOSPHORUS LEVEL 4.2 MG/DL (2.5-4.9); SODIUM LEVEL 137 MEQ/L (136-145); TOTAL PROTEIN 6.9 GM/DL (6.4-8.2)
[2018-09-23] MEDS: MIDODRINE 2.5 MG TAB PO ×3 (08:00→17:00)
[2018-09-23] MEDS: (RENVELA) SEVELAMER **CARBONate** 800 MG TAB PO ×3 (08:00→17:11)
[2018-09-23] MEDS: LACTULOSE 20 GM/30 ML SYRUP UD PO (09:00)
[2018-09-23] MEDS: ASPIRIN 81 MG ENTERIC TAB PO (09:00)
[2018-09-23] MEDS: OMEPRAZOLE 20 MG CAP PO (09:00)
[2018-09-23] MEDS: METOPROLOL TART 25 MG TABLET PO ×2 (09:00→17:01)
[2018-09-23] MEDS: GABAPENTIN 300 MG CAP PO ×3 (09:00→20:37)
[2018-09-23] MEDS: CALCIUM ACETATE 667 MG GELCAP PO (09:00)
[2018-09-23] MEDS: ATORVASTATIN 20 MG TAB PO (09:00)
[2018-09-23] MEDS: SENOKOT S TAB PO ×2 (09:00→20:37)
[2018-09-23 10:43] LABS: CORTISOL AM 20.5 UG/DL (4.3-22.4)
[2018-09-23 10:44] LABS: ABG BASE EXCESS -2.6 (-2.0-2.0); ABG HCO3 24.6 MEQ/L (22.0-26.0); ABG O2 SATURATION 95.7 % (95.0-99.0); ABG PARTIAL PRESSURE CO2 53.9 mmHg (35.0-45.0); ABG PARTIAL PRESSURE O2 88.9 mmHg (75.0-100.0); ABG STANDARD HCO3 22.3 MEQ/L (22.0-26.0); ABG TOTAL CO2 26.3 MEQ/L (23.0-31.0); ABG pH (ARTERIAL) 7.278 UNITS (7.350-7.450)
[2018-09-23 11:51] LABS: BEDSIDE GLUCOSE 118 MG/DL (83-110)
[2018-09-23] MEDS: FONDAPARINUX SODIUM 2.5 MG/0.5 ML SYR (J1652 PER 0.5MG) SC (12:54)
[2018-09-23 16:51] LABS: BEDSIDE GLUCOSE 104 MG/DL (83-110)
[2018-09-23] MEDS: MEROPENEM INJ 500 MG in APPROPRIATE DILUENT 1 EA IV (17:01)
[2018-09-23] MEDS: VANCOMYCIN HCL 1,000 MG, VIAL MATE ADAPTER 1 EACH in D5W 250 ML IV (18:19)
[2018-09-23] MEDS: **VANCO AFTER HD** MISC XX (18:19)
[2018-09-23] MEDS: ACETAMINOPHEN TAB 650MG DOSE (2X325MG) PO (20:38)
[2018-09-23 23:23] LABS: BEDSIDE GLUCOSE 120 MG/DL (83-110)
[2018-09-24 05:20] LABS: HEMATOCRIT 35.5 % (42.0-52.0); MEAN CORPUSCULAR HEMOGLOBIN 23.3 pg (27.0-33.0); MEAN CORPUSCULAR HGB CONC 28.2 g/dl (32.0-36.5); MEAN CORPUSCULAR VOLUME 82.8 fl (80.0-96.0); PLATELET COUNT, AUTOMATED 115 10^3/uL (150-450); RED BLOOD COUNT 4.29 10^6/uL (4.30-6.10); RED CELL DISTRIBUTION WIDTH 20.9 % (11.5-14.5); WHITE BLOOD COUNT 10.8 10^3/uL (4.0-10.0)
[2018-09-24 05:39] LABS: ALBUMIN 2.5 GM/DL (3.2-5.2); ALBUMIN/GLOBULIN RATIO 0.63 (1.00-1.93); ALKALINE PHOSPHATASE 123 U/L (45-117); ALT/SGPT 29 U/L (12-78); ANION GAP 7 MEQ/L (8-16); AST/SGOT 25 U/L (7-37); BILIRUBIN,TOTAL 0.9 MG/DL (0.2-1.0); BLOOD UREA NITROGEN 32 MG/DL (7-18); C REACTIVE PROTEIN QUANTITATIV 7.85 MG/DL (0.00-0.30); CALCIUM LEVEL 8.4 MG/DL (8.8-10.2); CARBON DIOXIDE LEVEL 29 MEQ/L (21-32); CHLORIDE LEVEL 99 MEQ/L (98-107); CREATININE FOR GFR 5.79 MG/DL (0.70-1.30); GLOMERULAR FILTRATION RATE 12.6 (>42); GLUCOSE, FASTING 136 MG/DL (70-100); MAGNESIUM LEVEL 1.9 MG/DL (1.8-2.4); SODIUM LEVEL 135 MEQ/L (136-145); TOTAL PROTEIN 6.5 GM/DL (6.4-8.2)
[2018-09-24] MEDS: SODIUM CHLORIDE 0.9% INJ 10 ML SYR IV ×3 (05:57→22:00)
[2018-09-24] MEDS: HumaLOG INSULIN (NovoLOG) PER UNIT SC ×4 (05:57→21:00)
[2018-09-24 06:16] LABS: ABG BASE EXCESS -0.2 (-2.0-2.0); ABG HCO3 25.4 MEQ/L (22.0-26.0); ABG O2 SATURATION 93.1 % (95.0-99.0); ABG PARTIAL PRESSURE CO2 45.6 mmHg (35.0-45.0); ABG PARTIAL PRESSURE O2 68.9 mmHg (75.0-100.0); ABG STANDARD HCO3 24.2 MEQ/L (22.0-26.0); ABG TOTAL CO2 26.8 MEQ/L (23.0-31.0); ABG pH (ARTERIAL) 7.364 UNITS (7.350-7.450)
[2018-09-24] MEDS: FONDAPARINUX SODIUM 2.5 MG/0.5 ML SYR (J1652 PER 0.5MG) SC (09:09)
[2018-09-24] MEDS: OMEPRAZOLE 20 MG CAP PO (09:10)
[2018-09-24] MEDS: ASPIRIN 81 MG ENTERIC TAB PO (09:10)
[2018-09-24] MEDS: GABAPENTIN 300 MG CAP PO ×3 (09:10→20:59)
[2018-09-24] MEDS: SENOKOT S TAB PO ×2 (09:10→20:48)
[2018-09-24] MEDS: ATORVASTATIN 20 MG TAB PO (09:10)
[2018-09-24] MEDS: MIDODRINE 2.5 MG TAB PO ×3 (09:11→15:48)
[2018-09-24] MEDS: LACTULOSE 20 GM/30 ML SYRUP UD PO (09:11)
[2018-09-24] MEDS: (RENVELA) SEVELAMER **CARBONate** 800 MG TAB PO ×3 (09:15→17:50)
[2018-09-24] MEDS: METOPROLOL TART 25 MG TABLET PO ×2 (09:16→20:55)
[2018-09-24] MEDS: ALTEPLASE 2 MG/2 ML VIAL (J2997 PER 1MG) XX (12:00)
[2018-09-24 12:17] LABS: BEDSIDE GLUCOSE 132 MG/DL (83-110)
[2018-09-24] MEDS: NORCO, ANEXSIA 5/325MG TABLET (HYDROcodone/ACETAMINOPHEN) PO (15:47)
[2018-09-24] MEDS: **VANCO AFTER HD** MISC XX (16:25)
[2018-09-24] MEDS: NOREPINEPHRINE BITARTRATE 8 MG in D5W 492 ML IV ×2 (16:26→17:51)
[2018-09-24 16:59] LABS: BEDSIDE GLUCOSE 164 MG/DL (83-110)
[2018-09-24] MEDS: MEROPENEM INJ 500 MG in APPROPRIATE DILUENT 1 EA IV (17:50)
[2018-09-24] MEDS: ACETAMINOPHEN TAB 650MG DOSE (2X325MG) PO (20:59)
[2018-09-24 21:05] LABS: BEDSIDE GLUCOSE 141 MG/DL (83-110)
[2018-09-25] MEDS: SODIUM CHLORIDE 0.9% INJ 10 ML SYR IV ×3 (05:42→21:39)
[2018-09-25 06:12] LABS: HEMATOCRIT 35.9 % (42.0-52.0); HEMOGLOBIN 10.5 g/dl (13.5-17.5); MEAN CORPUSCULAR HEMOGLOBIN 23.4 pg (27.0-33.0); MEAN CORPUSCULAR HGB CONC 29.2 g/dl (32.0-36.5); MEAN CORPUSCULAR VOLUME 80.1 fl (80.0-96.0); PLATELET COUNT, AUTOMATED 166 10^3/uL (150-450); RED BLOOD COUNT 4.48 10^6/uL (4.30-6.10); RED CELL DISTRIBUTION WIDTH 20.5 % (11.5-14.5); WHITE BLOOD COUNT 12.5 10^3/uL (4.0-10.0)
[2018-09-25 06:37] LABS: ALBUMIN 2.2 GM/DL (3.2-5.2); ALBUMIN/GLOBULIN RATIO 0.56 (1.00-1.93); ALKALINE PHOSPHATASE 128 U/L (45-117); ALT/SGPT 27 U/L (12-78); ANION GAP 12 MEQ/L (8-16); AST/SGOT 20 U/L (7-37); BILIRUBIN,TOTAL 0.7 MG/DL (0.2-1.0); BLOOD UREA NITROGEN 42 MG/DL (7-18); C REACTIVE PROTEIN QUANTITATIV 8.32 MG/DL (0.00-0.30); CALCIUM LEVEL 7.9 MG/DL (8.8-10.2); CARBON DIOXIDE LEVEL 24 MEQ/L (21-32); CHLORIDE LEVEL 95 MEQ/L (98-107); CREATININE FOR GFR 7.07 MG/DL (0.70-1.30); GLUCOSE, FASTING 149 MG/DL (70-100); MAGNESIUM LEVEL 1.7 MG/DL (1.8-2.4); POTASSIUM SERUM 4.1 MEQ/L (3.5-5.1); SODIUM LEVEL 131 MEQ/L (136-145); TOTAL PROTEIN 6.1 GM/DL (6.4-8.2)
[2018-09-25] MEDS: LACTULOSE 20 GM/30 ML SYRUP UD PO (08:27)
[2018-09-25] MEDS: SENOKOT S TAB PO ×2 (08:28→20:32)
[2018-09-25] MEDS: ATORVASTATIN 20 MG TAB PO (08:43)
[2018-09-25] MEDS: FONDAPARINUX SODIUM 2.5 MG/0.5 ML SYR (J1652 PER 0.5MG) SC ×2 (08:43→12:48)
[2018-09-25] MEDS: (RENVELA) SEVELAMER **CARBONate** 800 MG TAB PO ×3 (08:43→16:57)
[2018-09-25] MEDS: MIDODRINE 2.5 MG TAB PO ×3 (08:43→16:57)
[2018-09-25] MEDS: HumaLOG INSULIN (NovoLOG) PER UNIT SC ×4 (08:44→21:00)
[2018-09-25] MEDS ORDERED: DIGOXIN INJ 0.5 MG/2 ML AMP (J1160) As Ordered (09:30)
[2018-09-25] MEDS: DIGOXIN INJ 0.5 MG/2 ML AMP (J1160) IV ×2 (09:33→16:59)
[2018-09-25] MEDS: METOPROLOL TART 25 MG TABLET PO ×2 (09:40→20:31)
[2018-09-25] MEDS: NOREPINEPHRINE BITARTRATE 8 MG in D5W 492 ML IV (09:41)
[2018-09-25 12:32] LABS: BEDSIDE GLUCOSE 141 MG/DL (83-110)
[2018-09-25] MEDS: KETOROLAC 30 MG/ML VIAL (J1885) IV (12:42)
[2018-09-25] MEDS: ASPIRIN 81 MG ENTERIC TAB PO (12:47)
[2018-09-25] MEDS: OMEPRAZOLE 20 MG CAP PO (12:47)
[2018-09-25] MEDS: GABAPENTIN 300 MG CAP PO ×3 (12:48→21:38)
[2018-09-25] MEDS: ACETAMINOPHEN TAB 650MG DOSE (2X325MG) PO (12:53)
[2018-09-25] MEDS: **VANCO AFTER HD** MISC XX (16:00)
[2018-09-25 16:46] LABS: BEDSIDE GLUCOSE 145 MG/DL (83-110)
[2018-09-25] MEDS: VANCOMYCIN HCL 1,000 MG, VIAL MATE ADAPTER 1 EACH in D5W 250 ML IV (16:57)
[2018-09-25] MEDS: MEROPENEM INJ 500 MG in APPROPRIATE DILUENT 1 EA IV (18:28)
[2018-09-25 21:32] LABS: BEDSIDE GLUCOSE 100 MG/DL (83-110)
[2018-09-26 04:42] LABS: HEMATOCRIT 34.7 % (42.0-52.0); HEMOGLOBIN 9.9 g/dl (13.5-17.5); MEAN CORPUSCULAR HEMOGLOBIN 23.3 pg (27.0-33.0); MEAN CORPUSCULAR HGB CONC 28.5 g/dl (32.0-36.5); MEAN CORPUSCULAR VOLUME 81.8 fl (80.0-96.0); PLATELET COUNT, AUTOMATED 100 10^3/uL (150-450); RED BLOOD COUNT 4.24 10^6/uL (4.30-6.10); WHITE BLOOD COUNT 8.6 10^3/uL (4.0-10.0)
[2018-09-26 04:57] LABS: ALBUMIN/GLOBULIN RATIO 0.49 (1.00-1.93); ALKALINE PHOSPHATASE 111 U/L (45-117); ALT/SGPT 20 U/L (12-78); ANION GAP 7 MEQ/L (8-16); AST/SGOT 20 U/L (7-37); BILIRUBIN,TOTAL 0.6 MG/DL (0.2-1.0); BLOOD UREA NITROGEN 28 MG/DL (7-18); C REACTIVE PROTEIN QUANTITATIV 6.58 MG/DL (0.00-0.30); CALCIUM LEVEL 7.6 MG/DL (8.8-10.2); CARBON DIOXIDE LEVEL 27 MEQ/L (21-32); CHLORIDE LEVEL 97 MEQ/L (98-107); CREATININE FOR GFR 5.31 MG/DL (0.70-1.30); GLOMERULAR FILTRATION RATE 13.9 (>42); GLUCOSE, FASTING 127 MG/DL (70-100); MAGNESIUM LEVEL 1.7 MG/DL (1.8-2.4); POTASSIUM SERUM 4.4 MEQ/L (3.5-5.1); SODIUM LEVEL 131 MEQ/L (136-145); TOTAL PROTEIN 6.1 GM/DL (6.4-8.2); VANCOMYCIN RANDOM 24.5 UG/ML
[2018-09-26] MEDS: SODIUM CHLORIDE 0.9% INJ 10 ML SYR IV ×2 (06:33→17:27)
[2018-09-26] MEDS: MAG SULF 1GM/100ML (MAG RUN) 1 GM in APPROPRIATE DILUENT 1 EA IV (08:20)
[2018-09-26] MEDS: HumaLOG INSULIN (NovoLOG) PER UNIT SC ×4 (08:21→20:19)
[2018-09-26] MEDS: OMEPRAZOLE 20 MG CAP PO (08:22)
[2018-09-26] MEDS: LACTULOSE 20 GM/30 ML SYRUP UD PO (08:22)
[2018-09-26] MEDS: ASPIRIN 81 MG ENTERIC TAB PO (08:22)
[2018-09-26] MEDS: MIDODRINE 2.5 MG TAB PO ×3 (08:22→17:28)
[2018-09-26] MEDS: ATORVASTATIN 20 MG TAB PO (08:22)
[2018-09-26] MEDS: GABAPENTIN 300 MG CAP PO ×3 (08:22→20:18)
[2018-09-26] MEDS: (RENVELA) SEVELAMER **CARBONate** 800 MG TAB PO ×3 (08:22→17:28)
[2018-09-26] MEDS: DIGOXIN 0.0625MG PER 1/2TABLET PO (08:23)
[2018-09-26] MEDS: METOPROLOL TART 25 MG TABLET PO ×2 (08:23→20:18)
[2018-09-26] MEDS: SENOKOT S TAB PO ×2 (08:23→20:18)
[2018-09-26] MEDS ORDERED: DIGOXIN 0.0625MG PER 1/2TABLET PO (09:00)
[2018-09-26] MEDS: ACETAMINOPHEN TAB 650MG DOSE (2X325MG) PO (10:01)
[2018-09-26 11:44] LABS: BEDSIDE GLUCOSE 105 MG/DL (83-110)
[2018-09-26] MEDS: NOREPINEPHRINE BITARTRATE 8 MG in D5W 492 ML IV (12:06)
[2018-09-26] MEDS: FONDAPARINUX SODIUM 2.5 MG/0.5 ML SYR (J1652 PER 0.5MG) SC (12:12)
[2018-09-26] MEDS ORDERED: VANCOMYCIN HCL 750 MG, VIAL MATE ADAPTER 1 EACH in D5W 250 ML IV (16:00)
[2018-09-26 16:59] LABS: BEDSIDE GLUCOSE 113 MG/DL (83-110)
[2018-09-26] MEDS: ceFAZolin SOD 1 GM in D5W MINI-BAG PLUS 50 ML IV (17:27)
[2018-09-26] MEDS: MEROPENEM INJ 500 MG in APPROPRIATE DILUENT 1 EA IV (17:27)
[2018-09-26 20:24] LABS: BEDSIDE GLUCOSE 125 MG/DL (83-110)
[2018-09-27] MEDS: SODIUM CHLORIDE 0.9% INJ 10 ML SYR IV ×4 (00:45→21:17)
[2018-09-27 04:07] LABS: HEMATOCRIT 33.2 % (42.0-52.0); HEMOGLOBIN 9.6 g/dl (13.5-17.5); MEAN CORPUSCULAR HEMOGLOBIN 23.5 pg (27.0-33.0); MEAN CORPUSCULAR HGB CONC 28.9 g/dl (32.0-36.5); MEAN CORPUSCULAR VOLUME 81.4 fl (80.0-96.0); PLATELET COUNT, AUTOMATED 113 10^3/uL (150-450); RED BLOOD COUNT 4.08 10^6/uL (4.30-6.10); RED CELL DISTRIBUTION WIDTH 19.8 % (11.5-14.5); WHITE BLOOD COUNT 8.7 10^3/uL (4.0-10.0)
[2018-09-27 04:59] LABS: ALBUMIN/GLOBULIN RATIO 0.53 (1.00-1.93); ALKALINE PHOSPHATASE 106 U/L (45-117); ALT/SGPT 21 U/L (12-78); ANION GAP 7 MEQ/L (8-16); AST/SGOT 16 U/L (7-37); BILIRUBIN,TOTAL 0.6 MG/DL (0.2-1.0); BLOOD UREA NITROGEN 34 MG/DL (7-18); C REACTIVE PROTEIN QUANTITATIV 4.11 MG/DL (0.00-0.30); CARBON DIOXIDE LEVEL 27 MEQ/L (21-32); CHLORIDE LEVEL 96 MEQ/L (98-107); CREATININE FOR GFR 6.47 MG/DL (0.70-1.30); GLOMERULAR FILTRATION RATE 11.1 (>42); GLUCOSE, FASTING 91 MG/DL (70-100); POTASSIUM SERUM 4.6 MEQ/L (3.5-5.1); SODIUM LEVEL 130 MEQ/L (136-145); TOTAL PROTEIN 5.8 GM/DL (6.4-8.2)
[2018-09-27 06:03] LABS: ABG BASE EXCESS -2.7 (-2.0-2.0); ABG HCO3 22.9 MEQ/L (22.0-26.0); ABG O2 SATURATION 94.4 % (95.0-99.0); ABG PARTIAL PRESSURE CO2 42.8 mmHg (35.0-45.0); ABG PARTIAL PRESSURE O2 76.3 mmHg (75.0-100.0); ABG STANDARD HCO3 22.2 MEQ/L (22.0-26.0); ABG TOTAL CO2 24.2 MEQ/L (23.0-31.0); ABG pH (ARTERIAL) 7.346 UNITS (7.350-7.450)
[2018-09-27] MEDS: HumaLOG INSULIN (NovoLOG) PER UNIT SC ×4 (07:30→21:00)
[2018-09-27 07:38] LABS: BEDSIDE GLUCOSE 86 MG/DL (83-110)
[2018-09-27] MEDS: MIDODRINE 2.5 MG TAB PO ×3 (08:00→16:28)
[2018-09-27] MEDS: (RENVELA) SEVELAMER **CARBONate** 800 MG TAB PO ×3 (08:00→16:47)
[2018-09-27] MEDS: GABAPENTIN 300 MG CAP PO ×3 (08:51→21:17)
[2018-09-27] MEDS: METOPROLOL TART 25 MG TABLET PO ×2 (08:51→21:00)
[2018-09-27] MEDS: ASPIRIN 81 MG ENTERIC TAB PO (08:56)
[2018-09-27] MEDS: ATORVASTATIN 20 MG TAB PO (08:56)
[2018-09-27] MEDS: FONDAPARINUX SODIUM 2.5 MG/0.5 ML SYR (J1652 PER 0.5MG) SC (08:56)
[2018-09-27] MEDS: LACTULOSE 20 GM/30 ML SYRUP UD PO (09:00)
[2018-09-27] MEDS: SENOKOT S TAB PO ×2 (09:00→21:17)
[2018-09-27 12:08] LABS: BEDSIDE GLUCOSE 89 MG/DL (83-110)
[2018-09-27] MEDS: OMEPRAZOLE 20 MG CAP PO (12:22)
[2018-09-27] MEDS: SANTYL OINT 30GM TOP (16:28)
[2018-09-27 16:45] LABS: BEDSIDE GLUCOSE 109 MG/DL (83-110)
[2018-09-27] MEDS: ceFAZolin SOD 1 GM in D5W MINI-BAG PLUS 50 ML IV (17:16)
[2018-09-27 21:26] LABS: BEDSIDE GLUCOSE 133 MG/DL (83-110)
[2018-09-28] MEDS: SODIUM CHLORIDE 0.9% INJ 10 ML SYR IV ×3 (06:00→21:16)
[2018-09-28 06:01] LABS: HEMATOCRIT 30.2 % (42.0-52.0); HEMOGLOBIN 8.8 g/dl (13.5-17.5); MEAN CORPUSCULAR HEMOGLOBIN 23.7 pg (27.0-33.0); MEAN CORPUSCULAR HGB CONC 29.1 g/dl (32.0-36.5); MEAN CORPUSCULAR VOLUME 81.4 fl (80.0-96.0); PLATELET COUNT, AUTOMATED 118 10^3/uL (150-450); RED BLOOD COUNT 3.71 10^6/uL (4.30-6.10); RED CELL DISTRIBUTION WIDTH 19.3 % (11.5-14.5); WHITE BLOOD COUNT 7.9 10^3/uL (4.0-10.0)
[2018-09-28 06:32] LABS: ALBUMIN/GLOBULIN RATIO 0.61 (1.00-1.93); ALKALINE PHOSPHATASE 115 U/L (45-117); ALT/SGPT 15 U/L (12-78); ANION GAP 5 MEQ/L (8-16); AST/SGOT 23 U/L (7-37); BILIRUBIN,TOTAL 0.6 MG/DL (0.2-1.0); BLOOD UREA NITROGEN 24 MG/DL (7-18); C REACTIVE PROTEIN QUANTITATIV 3.39 MG/DL (0.00-0.30); CALCIUM LEVEL 7.6 MG/DL (8.8-10.2); CARBON DIOXIDE LEVEL 30 MEQ/L (21-32); CHLORIDE LEVEL 98 MEQ/L (98-107); CREATININE FOR GFR 5.41 MG/DL (0.70-1.30); GLOMERULAR FILTRATION RATE 13.6 (>42); GLUCOSE, FASTING 87 MG/DL (70-100); MAGNESIUM LEVEL 1.9 MG/DL (1.8-2.4); POTASSIUM SERUM 4.5 MEQ/L (3.5-5.1); SODIUM LEVEL 133 MEQ/L (136-145); TOTAL PROTEIN 5.3 GM/DL (6.4-8.2)
[2018-09-28] MEDS: HumaLOG INSULIN (NovoLOG) PER UNIT SC ×4 (07:03→21:16)
[2018-09-28] MEDS: DIGOXIN 0.0625MG PER 1/2TABLET PO (08:00)
[2018-09-28] MEDS: MIDODRINE 2.5 MG TAB PO ×3 (08:09→17:27)
[2018-09-28] MEDS: ASPIRIN 81 MG ENTERIC TAB PO (08:09)
[2018-09-28] MEDS: OMEPRAZOLE 20 MG CAP PO (08:09)
[2018-09-28] MEDS: GABAPENTIN 300 MG CAP PO ×3 (08:09→21:17)
[2018-09-28] MEDS: ATORVASTATIN 20 MG TAB PO (08:09)
[2018-09-28] MEDS: SENOKOT S TAB PO ×2 (08:09→21:17)
[2018-09-28] MEDS: METOPROLOL TART 25 MG TABLET PO ×2 (08:09→21:16)
[2018-09-28] MEDS: (RENVELA) SEVELAMER **CARBONate** 800 MG TAB PO ×3 (08:09→17:27)
[2018-09-28] MEDS: SANTYL OINT 30GM TOP (08:10)
[2018-09-28] MEDS: LACTULOSE 20 GM/30 ML SYRUP UD PO (08:26)
[2018-09-28] MEDS ORDERED: fentaNYL 100 MCG/2 ML INJECTION (J3010) As Ordered (11:14)
[2018-09-28] MEDS ORDERED: ISOVUE-300 61% 50ML VIAL (Q9967) As Ordered (11:15)
[2018-09-28] MEDS ORDERED: LIDOCAINE 2% MDV 20 ML VIAL As Ordered (11:15)
[2018-09-28] MEDS ORDERED: MIDAZOLAM INJ 2 MG/2 ML VIAL (J2250) As Ordered (11:15)
[2018-09-28 13:29] LABS: BEDSIDE GLUCOSE 97 MG/DL (83-110)
[2018-09-28] MEDS: FONDAPARINUX SODIUM 2.5 MG/0.5 ML SYR (J1652 PER 0.5MG) SC (13:44)
[2018-09-28 16:41] LABS: BEDSIDE GLUCOSE 135 MG/DL (83-110)
[2018-09-28] MEDS: ceFAZolin SOD 1 GM in D5W MINI-BAG PLUS 50 ML IV (17:28)
[2018-09-28 21:13] LABS: BEDSIDE GLUCOSE 125 MG/DL (83-110)
[2018-09-29 05:39] LABS: HEMATOCRIT 30.3 % (42.0-52.0); HEMOGLOBIN 8.6 g/dl (13.5-17.5); MEAN CORPUSCULAR HEMOGLOBIN 23.4 pg (27.0-33.0); MEAN CORPUSCULAR HGB CONC 28.4 g/dl (32.0-36.5); MEAN CORPUSCULAR VOLUME 82.3 fl (80.0-96.0); PLATELET COUNT, AUTOMATED 111 10^3/uL (150-450); RED BLOOD COUNT 3.68 10^6/uL (4.30-6.10); RED CELL DISTRIBUTION WIDTH 18.9 % (11.5-14.5); WHITE BLOOD COUNT 8.6 10^3/uL (4.0-10.0)
[2018-09-29] MEDS: SODIUM CHLORIDE 0.9% INJ 10 ML SYR IV ×3 (05:53→21:38)
[2018-09-29 06:06] LABS: ALKALINE PHOSPHATASE 118 U/L (45-117); ALT/SGPT 11 U/L (12-78); ANION GAP 9 MEQ/L (8-16); AST/SGOT 20 U/L (7-37); BILIRUBIN,TOTAL 0.5 MG/DL (0.2-1.0); BLOOD UREA NITROGEN 29 MG/DL (7-18); CALCIUM LEVEL 7.9 MG/DL (8.8-10.2); CARBON DIOXIDE LEVEL 27 MEQ/L (21-32); CHLORIDE LEVEL 96 MEQ/L (98-107); CREATININE FOR GFR 6.71 MG/DL (0.70-1.30); GLOMERULAR FILTRATION RATE 10.6 (>42); GLUCOSE, FASTING 89 MG/DL (70-100); MAGNESIUM LEVEL 1.8 MG/DL (1.8-2.4); POTASSIUM SERUM 4.8 MEQ/L (3.5-5.1); SODIUM LEVEL 132 MEQ/L (136-145)
[2018-09-29] MEDS: HumaLOG INSULIN (NovoLOG) PER UNIT SC ×4 (07:14→20:57)
[2018-09-29] MEDS: LACTULOSE 20 GM/30 ML SYRUP UD PO (08:46)
[2018-09-29] MEDS: FONDAPARINUX SODIUM 2.5 MG/0.5 ML SYR (J1652 PER 0.5MG) SC (08:46)
[2018-09-29] MEDS: SENOKOT S TAB PO ×2 (08:47→21:38)
[2018-09-29] MEDS: METOPROLOL TART 25 MG TABLET PO ×2 (09:00→21:00)
[2018-09-29] MEDS: ATORVASTATIN 20 MG TAB PO (09:09)
[2018-09-29] MEDS: OMEPRAZOLE 20 MG CAP PO (09:10)
[2018-09-29] MEDS: (RENVELA) SEVELAMER **CARBONate** 800 MG TAB PO ×3 (09:10→17:05)
[2018-09-29] MEDS: GABAPENTIN 300 MG CAP PO ×3 (09:10→21:38)
[2018-09-29] MEDS: ASPIRIN 81 MG ENTERIC TAB PO (09:10)
[2018-09-29] MEDS: SANTYL OINT 30GM TOP (09:10)
[2018-09-29] MEDS: MIDODRINE 2.5 MG TAB PO ×3 (09:10→17:05)
[2018-09-29 11:52] LABS: BEDSIDE GLUCOSE 102 MG/DL (83-110)
[2018-09-29 17:02] LABS: BEDSIDE GLUCOSE 123 MG/DL (83-110)
[2018-09-29] MEDS: ceFAZolin SOD 1 GM in D5W MINI-BAG PLUS 50 ML IV (18:10)
[2018-09-29 20:50] LABS: BEDSIDE GLUCOSE 150 MG/DL (83-110)
[2018-09-30] MEDS: SODIUM CHLORIDE 0.9% INJ 10 ML SYR IV ×3 (05:41→20:31)
[2018-09-30 05:57] LABS: BASO % 0.4 % (0.0-1.0); EOS # 0.2 10^3/uL (0.0-0.50); EOS % 2.4 % (0.0-3.0); HEMATOCRIT 28.4 % (42.0-52.0); HEMOGLOBIN 8.2 g/dl (13.5-17.5); IMMATURE GRANULOCYTE % 0.7 % (0-3.0); LYMPH # 0.9 10^3/uL (1.5-4.5); MEAN CORPUSCULAR HEMOGLOBIN 23.4 pg (27.0-33.0); MEAN CORPUSCULAR HGB CONC 28.9 g/dl (32.0-36.5); MEAN CORPUSCULAR VOLUME 80.9 fl (80.0-96.0); MONO % 11.9 % (0.0-5.0); NEUTROPHILS # 6.2 10^3/uL (1.8-7.7); NEUTROPHILS % 73.6 % (36.0-66.0); PLATELET COUNT, AUTOMATED 127 10^3/uL (150-450); RED BLOOD COUNT 3.51 10^6/uL (4.30-6.10); RED CELL DISTRIBUTION WIDTH 18.3 % (11.5-14.5); WHITE BLOOD COUNT 8.5 10^3/uL (4.0-10.0)
[2018-09-30 06:25] LABS: ANION GAP 11 MEQ/L (8-16); BLOOD UREA NITROGEN 39 MG/DL (7-18); CALCIUM LEVEL 7.8 MG/DL (8.8-10.2); CARBON DIOXIDE LEVEL 26 MEQ/L (21-32); CHLORIDE LEVEL 95 MEQ/L (98-107); CREATININE FOR GFR 7.71 MG/DL (0.70-1.30); GLUCOSE, FASTING 92 MG/DL (70-100); POTASSIUM SERUM 4.8 MEQ/L (3.5-5.1); SODIUM LEVEL 132 MEQ/L (136-145)
[2018-09-30] MEDS: GABAPENTIN 300 MG CAP PO ×3 (06:50→20:30)
[2018-09-30] MEDS: ASPIRIN 81 MG ENTERIC TAB PO (06:51)
[2018-09-30] MEDS: HumaLOG INSULIN (NovoLOG) PER UNIT SC ×4 (07:30→20:30)
[2018-09-30] MEDS ORDERED: DARBEPOETIN 100 MCG/0.5 ML *DIALYSIS* SYRINGE (J0882) IV (08:30)
[2018-09-30] MEDS: FONDAPARINUX SODIUM 2.5 MG/0.5 ML SYR (J1652 PER 0.5MG) SC (09:00)
[2018-09-30] MEDS: METOPROLOL TART 25 MG TABLET PO (09:00)
[2018-09-30] MEDS: DIGOXIN 0.0625MG PER 1/2TABLET PO (09:05)
[2018-09-30] MEDS: LACTULOSE 20 GM/30 ML SYRUP UD PO (09:05)
[2018-09-30] MEDS: SENOKOT S TAB PO ×2 (09:06→20:30)
[2018-09-30] MEDS: ATORVASTATIN 20 MG TAB PO (09:06)
[2018-09-30] MEDS: MIDODRINE 5 MG TAB PO ×3 (09:07→17:14)
[2018-09-30] MEDS: (RENVELA) SEVELAMER **CARBONate** 800 MG TAB PO ×3 (09:07→17:14)
[2018-09-30] MEDS: OMEPRAZOLE 20 MG CAP PO (09:08)
[2018-09-30] MEDS: SANTYL OINT 30GM TOP (09:08)
[2018-09-30] MEDS: HEPARIN 1,000 UNITS/ML 10ML VIAL (FOR RADIOLOGY& DIALYSIS ONLY) IV (11:00)
[2018-09-30 14:38] LABS: BEDSIDE GLUCOSE 88 MG/DL (83-110)
[2018-09-30 17:08] LABS: BEDSIDE GLUCOSE 163 MG/DL (83-110)
[2018-09-30] MEDS: ceFAZolin SOD 1 GM in D5W MINI-BAG PLUS 50 ML IV (17:14)
[2018-09-30 20:23] LABS: BEDSIDE GLUCOSE 123 MG/DL (83-110)
[2018-09-30] MEDS: MAGNESIUM CITRATE 300 ML BTL PO (20:30)
[2018-10-01] MEDS: SODIUM CHLORIDE 0.9% INJ 10 ML SYR IV ×3 (05:27→20:13)
[2018-10-01] MEDS: HumaLOG INSULIN (NovoLOG) PER UNIT SC ×4 (07:30→20:13)
[2018-10-01 08:11] LABS: BEDSIDE GLUCOSE 102 MG/DL (83-110)
[2018-10-01] MEDS: OMEPRAZOLE 20 MG CAP PO (08:40)
[2018-10-01] MEDS: ATORVASTATIN 20 MG TAB PO (08:40)
[2018-10-01] MEDS: (RENVELA) SEVELAMER **CARBONate** 800 MG TAB PO ×3 (08:40→17:27)
[2018-10-01] MEDS: MIDODRINE 5 MG TAB PO ×3 (08:40→17:27)
[2018-10-01] MEDS: ASPIRIN 81 MG ENTERIC TAB PO (08:40)
[2018-10-01] MEDS: SENOKOT S TAB PO ×2 (08:40→20:13)
[2018-10-01] MEDS: GABAPENTIN 300 MG CAP PO ×3 (08:40→20:13)
[2018-10-01] MEDS: SANTYL OINT 30GM TOP (08:41)
[2018-10-01] MEDS: LACTULOSE 20 GM/30 ML SYRUP UD PO (08:41)
[2018-10-01] MEDS: FONDAPARINUX SODIUM 2.5 MG/0.5 ML SYR (J1652 PER 0.5MG) SC (10:28)
[2018-10-01 12:19] LABS: BEDSIDE GLUCOSE 111 MG/DL (83-110)
[2018-10-01 17:06] LABS: BEDSIDE GLUCOSE 126 MG/DL (83-110)
[2018-10-01] MEDS: ceFAZolin SOD 1 GM in D5W MINI-BAG PLUS 50 ML IV (17:28)
[2018-10-01 20:07] LABS: BEDSIDE GLUCOSE 110 MG/DL (83-110)
[2018-10-01] MEDS: ACETAMINOPHEN TAB 650MG DOSE (2X325MG) PO (20:13)
[2018-10-02 05:18] LABS: HEMATOCRIT 28.5 % (42.0-52.0); HEMOGLOBIN 8.1 g/dl (13.5-17.5); MEAN CORPUSCULAR HEMOGLOBIN 23.6 pg (27.0-33.0); MEAN CORPUSCULAR HGB CONC 28.4 g/dl (32.0-36.5); MEAN CORPUSCULAR VOLUME 83.1 fl (80.0-96.0); PLATELET COUNT, AUTOMATED 155 10^3/uL (150-450); RED BLOOD COUNT 3.43 10^6/uL (4.30-6.10); WHITE BLOOD COUNT 6.9 10^3/uL (4.0-10.0)
[2018-10-02] MEDS: SODIUM CHLORIDE 0.9% INJ 10 ML SYR IV ×3 (05:58→22:04)
[2018-10-02 06:06] LABS: ANION GAP 8 MEQ/L (8-16); BLOOD UREA NITROGEN 28 MG/DL (7-18); CALCIUM LEVEL 7.8 MG/DL (8.8-10.2); CARBON DIOXIDE LEVEL 28 MEQ/L (21-32); CHLORIDE LEVEL 97 MEQ/L (98-107); CREATININE FOR GFR 6.37 MG/DL (0.70-1.30); GLOMERULAR FILTRATION RATE 11.3 (>42); GLUCOSE, FASTING 106 MG/DL (70-100); POTASSIUM SERUM 4.5 MEQ/L (3.5-5.1); SODIUM LEVEL 133 MEQ/L (136-145)
[2018-10-02] MEDS: MIDODRINE 5 MG TAB PO ×3 (07:33→17:29)
[2018-10-02] MEDS: HumaLOG INSULIN (NovoLOG) PER UNIT SC ×4 (07:34→21:00)
[2018-10-02] MEDS: (RENVELA) SEVELAMER **CARBONate** 800 MG TAB PO ×3 (07:35→17:29)
[2018-10-02] MEDS: SENOKOT S TAB PO ×2 (09:19→21:58)
[2018-10-02] MEDS: ATORVASTATIN 20 MG TAB PO (09:19)
[2018-10-02] MEDS: DIGOXIN 0.0625MG PER 1/2TABLET PO (09:19)
[2018-10-02] MEDS: ASPIRIN 81 MG ENTERIC TAB PO (09:19)
[2018-10-02] MEDS: GABAPENTIN 300 MG CAP PO ×3 (09:19→21:57)
[2018-10-02] MEDS: OMEPRAZOLE 20 MG CAP PO (09:20)
[2018-10-02] MEDS: LACTULOSE 20 GM/30 ML SYRUP UD PO (09:20)
[2018-10-02] MEDS: SANTYL OINT 30GM TOP (09:20)
[2018-10-02] MEDS: FONDAPARINUX SODIUM 2.5 MG/0.5 ML SYR (J1652 PER 0.5MG) SC (09:20)
[2018-10-02 12:20] LABS: BEDSIDE GLUCOSE 122 MG/DL (83-110)
[2018-10-02 17:26] LABS: BEDSIDE GLUCOSE 131 MG/DL (83-110)
[2018-10-02] MEDS: ceFAZolin SOD 1 GM in D5W MINI-BAG PLUS 50 ML IV (17:30)
[2018-10-02 21:54] LABS: BEDSIDE GLUCOSE 115 MG/DL (83-110)
[2018-10-03 05:54] LABS: HEMATOCRIT 28.1 % (42.0-52.0); HEMOGLOBIN 7.9 g/dl (13.5-17.5); MEAN CORPUSCULAR HEMOGLOBIN 23.3 pg (27.0-33.0); MEAN CORPUSCULAR HGB CONC 28.1 g/dl (32.0-36.5); MEAN CORPUSCULAR VOLUME 82.9 fl (80.0-96.0); PLATELET COUNT, AUTOMATED 162 10^3/uL (150-450); RED BLOOD COUNT 3.39 10^6/uL (4.30-6.10); RED CELL DISTRIBUTION WIDTH 17.7 % (11.5-14.5); WHITE BLOOD COUNT 7.8 10^3/uL (4.0-10.0)
[2018-10-03] MEDS: SODIUM CHLORIDE 0.9% INJ 10 ML SYR IV ×3 (06:00→21:44)
[2018-10-03 06:07] LABS: ANION GAP 11 MEQ/L (8-16); BLOOD UREA NITROGEN 32 MG/DL (7-18); CALCIUM LEVEL 7.9 MG/DL (8.8-10.2); CARBON DIOXIDE LEVEL 26 MEQ/L (21-32); CHLORIDE LEVEL 96 MEQ/L (98-107); CREATININE FOR GFR 7.54 MG/DL (0.70-1.30); GLOMERULAR FILTRATION RATE 9.3 (>42); GLUCOSE, FASTING 95 MG/DL (70-100); POTASSIUM SERUM 4.5 MEQ/L (3.5-5.1); SODIUM LEVEL 133 MEQ/L (136-145)
[2018-10-03] MEDS: OMEPRAZOLE 20 MG CAP PO (06:56)
[2018-10-03] MEDS: ATORVASTATIN 20 MG TAB PO (06:56)
[2018-10-03] MEDS: LACTULOSE 20 GM/30 ML SYRUP UD PO (06:57)
[2018-10-03] MEDS: (RENVELA) SEVELAMER **CARBONate** 800 MG TAB PO ×3 (06:57→20:52)
[2018-10-03] MEDS: MIDODRINE 5 MG TAB PO ×4 (06:57→18:23)
[2018-10-03] MEDS: HumaLOG INSULIN (NovoLOG) PER UNIT SC ×4 (07:30→20:51)
[2018-10-03] MEDS: ASPIRIN 81 MG ENTERIC TAB PO (10:17)
[2018-10-03] MEDS: GABAPENTIN 300 MG CAP PO ×4 (10:18→20:53)
[2018-10-03] MEDS: SENOKOT S TAB PO ×2 (10:18→20:53)
[2018-10-03] MEDS: FONDAPARINUX SODIUM 2.5 MG/0.5 ML SYR (J1652 PER 0.5MG) SC (10:21)
[2018-10-03] MEDS: SANTYL OINT 30GM TOP (10:23)
[2018-10-03] MEDS ORDERED: LIDOCAINE 1% MDV 20ML VIAL As Ordered (12:42)
[2018-10-03] MEDS ORDERED: HEPARIN 1,000 UNITS/ML 10ML VIAL (FOR RADIOLOGY& DIALYSIS ONLY) As Ordered (12:42)
[2018-10-03] MEDS ORDERED: ISOVUE-300 61% 50ML VIAL (Q9967) As Ordered (12:43)
[2018-10-03] MEDS ORDERED: LIDOCAINE 2% MDV 20 ML VIAL As Ordered (12:43)
[2018-10-03 14:12] LABS: BEDSIDE GLUCOSE 99 MG/DL (83-110)
[2018-10-03] MEDS: HEPARIN 1,000 UNITS/ML 10ML VIAL (FOR RADIOLOGY& DIALYSIS ONLY) IV (14:15)
[2018-10-03 17:06] LABS: IMMEDIATE SPIN CROSSMATCH 1 1
[2018-10-03] MEDS: LIDOCAINE 1% SDV 5 ML VIAL SQ (18:00)
[2018-10-03 20:48] LABS: BEDSIDE GLUCOSE 113 MG/DL (83-110)
[2018-10-03] MEDS: ACETAMINOPHEN TAB 650MG DOSE (2X325MG) PO (20:52)
[2018-10-03] MEDS: ceFAZolin SOD 1 GM in D5W MINI-BAG PLUS 50 ML IV (21:43)
[2018-10-04 00:14] LABS: BEDSIDE GLUCOSE 133 MG/DL (83-110)
[2018-10-04 05:08] LABS: HEMATOCRIT 28.1 % (42.0-52.0); MEAN CORPUSCULAR HEMOGLOBIN 23.8 pg (27.0-33.0); MEAN CORPUSCULAR HGB CONC 28.5 g/dl (32.0-36.5); MEAN CORPUSCULAR VOLUME 83.6 fl (80.0-96.0); PLATELET COUNT, AUTOMATED 146 10^3/uL (150-450); RED BLOOD COUNT 3.36 10^6/uL (4.30-6.10); RED CELL DISTRIBUTION WIDTH 17.7 % (11.5-14.5)
[2018-10-04] MEDS: SODIUM CHLORIDE 0.9% INJ 10 ML SYR IV ×3 (05:20→21:40)
[2018-10-04 05:34] LABS: ANION GAP 7 MEQ/L (8-16); BLOOD UREA NITROGEN 16 MG/DL (7-18); CARBON DIOXIDE LEVEL 30 MEQ/L (21-32); CHLORIDE LEVEL 98 MEQ/L (98-107); CREATININE FOR GFR 4.69 MG/DL (0.70-1.30); GLUCOSE, FASTING 103 MG/DL (70-100); POTASSIUM SERUM 3.7 MEQ/L (3.5-5.1); SODIUM LEVEL 135 MEQ/L (136-145)
[2018-10-04] MEDS: HumaLOG INSULIN (NovoLOG) PER UNIT SC ×4 (07:30→21:00)
[2018-10-04] MEDS: SENOKOT S TAB PO ×2 (09:20→21:38)
[2018-10-04] MEDS: (RENVELA) SEVELAMER **CARBONate** 800 MG TAB PO ×3 (09:20→17:25)
[2018-10-04] MEDS: OMEPRAZOLE 20 MG CAP PO (09:20)
[2018-10-04] MEDS: ATORVASTATIN 20 MG TAB PO (09:20)
[2018-10-04] MEDS: ASPIRIN 81 MG ENTERIC TAB PO (09:20)
[2018-10-04] MEDS: GABAPENTIN 300 MG CAP PO ×3 (09:20→21:38)
[2018-10-04] MEDS: MIDODRINE 5 MG TAB PO ×3 (09:20→17:25)
[2018-10-04] MEDS: DIGOXIN 0.0625MG PER 1/2TABLET PO (09:20)
[2018-10-04] MEDS: SANTYL OINT 30GM TOP (09:21)
[2018-10-04] MEDS: LACTULOSE 20 GM/30 ML SYRUP UD PO (09:21)
[2018-10-04] MEDS: FONDAPARINUX SODIUM 2.5 MG/0.5 ML SYR (J1652 PER 0.5MG) SC (09:21)
[2018-10-04 12:43] LABS: BEDSIDE GLUCOSE 131 MG/DL (83-110)
[2018-10-04 16:49] LABS: BEDSIDE GLUCOSE 98 MG/DL (83-110)
[2018-10-04 21:02] LABS: BEDSIDE GLUCOSE 128 MG/DL (83-110)
[2018-10-05] MEDS: SODIUM CHLORIDE 0.9% INJ 10 ML SYR IV ×3 (05:31→20:52)
[2018-10-05] MEDS: FONDAPARINUX SODIUM 2.5 MG/0.5 ML SYR (J1652 PER 0.5MG) SC (05:31)
[2018-10-05] MEDS: ASPIRIN 81 MG ENTERIC TAB PO (05:31)
[2018-10-05] MEDS: ATORVASTATIN 20 MG TAB PO (05:31)
[2018-10-05] MEDS: MIDODRINE 5 MG TAB PO ×3 (05:31→15:36)
[2018-10-05] MEDS: OMEPRAZOLE 20 MG CAP PO (05:32)
[2018-10-05] MEDS: SANTYL OINT 30GM TOP (05:32)
[2018-10-05] MEDS: GABAPENTIN 300 MG CAP PO ×3 (05:32→20:12)
[2018-10-05] MEDS: (RENVELA) SEVELAMER **CARBONate** 800 MG TAB PO ×3 (05:32→17:37)
[2018-10-05] MEDS: LACTULOSE 20 GM/30 ML SYRUP UD PO (05:32)
[2018-10-05] MEDS: SENOKOT S TAB PO ×2 (05:32→20:12)
[2018-10-05 06:20] LABS: HEMATOCRIT 27.9 % (42.0-52.0); MEAN CORPUSCULAR HEMOGLOBIN 23.8 pg (27.0-33.0); MEAN CORPUSCULAR HGB CONC 28.7 g/dl (32.0-36.5); PLATELET COUNT, AUTOMATED 125 10^3/uL (150-450); RED BLOOD COUNT 3.36 10^6/uL (4.30-6.10); RED CELL DISTRIBUTION WIDTH 17.7 % (11.5-14.5); WHITE BLOOD COUNT 7.3 10^3/uL (4.0-10.0)
[2018-10-05 06:43] LABS: ANION GAP 11 MEQ/L (8-16); BLOOD UREA NITROGEN 21 MG/DL (7-18); C REACTIVE PROTEIN QUANTITATIV 3.41 MG/DL (0.00-0.30); CALCIUM LEVEL 7.7 MG/DL (8.8-10.2); CARBON DIOXIDE LEVEL 27 MEQ/L (21-32); CHLORIDE LEVEL 96 MEQ/L (98-107); CREATININE FOR GFR 5.93 MG/DL (0.70-1.30); GLOMERULAR FILTRATION RATE 12.2 (>42); GLUCOSE, FASTING 86 MG/DL (70-100); POTASSIUM SERUM 4.3 MEQ/L (3.5-5.1); SODIUM LEVEL 134 MEQ/L (136-145)
[2018-10-05 06:50] LABS: ERYTHROCYTE SEDIMENTATION RATE 61 mm/hr (0-20)
[2018-10-05] MEDS: HumaLOG INSULIN (NovoLOG) PER UNIT SC ×4 (07:30→21:00)
[2018-10-05 09:05] LABS: IMMEDIATE SPIN CROSSMATCH 1 1
[2018-10-05] MEDS: HEPARIN 1,000 UNITS/ML 10ML VIAL (FOR RADIOLOGY& DIALYSIS ONLY) XX (11:45)
[2018-10-05 12:45] LABS: BEDSIDE GLUCOSE 93 MG/DL (83-110)
[2018-10-05 16:43] LABS: BEDSIDE GLUCOSE 105 MG/DL (83-110)
[2018-10-05] MEDS: ACETAMINOPHEN TAB 650MG DOSE (2X325MG) PO (20:12)
[2018-10-05 21:41] LABS: BEDSIDE GLUCOSE 132 MG/DL (83-110)
[2018-10-06] MEDS: SODIUM CHLORIDE 0.9% INJ 10 ML SYR IV ×3 (05:27→22:00)
[2018-10-06 05:55] LABS: HEMATOCRIT 29.6 % (42.0-52.0); HEMOGLOBIN 8.5 g/dl (13.5-17.5); MEAN CORPUSCULAR HEMOGLOBIN 24.6 pg (27.0-33.0); MEAN CORPUSCULAR HGB CONC 28.7 g/dl (32.0-36.5); MEAN CORPUSCULAR VOLUME 85.8 fl (80.0-96.0); PLATELET COUNT, AUTOMATED 114 10^3/uL (150-450); RED BLOOD COUNT 3.45 10^6/uL (4.30-6.10); RED CELL DISTRIBUTION WIDTH 17.7 % (11.5-14.5); WHITE BLOOD COUNT 6.8 10^3/uL (4.0-10.0)
[2018-10-06 06:16] LABS: ANION GAP 8 MEQ/L (8-16); BLOOD UREA NITROGEN 14 MG/DL (7-18); CALCIUM LEVEL 7.9 MG/DL (8.8-10.2); CARBON DIOXIDE LEVEL 30 MEQ/L (21-32); CHLORIDE LEVEL 98 MEQ/L (98-107); CREATININE FOR GFR 4.26 MG/DL (0.70-1.30); GLOMERULAR FILTRATION RATE 17.9 (>42); GLUCOSE, FASTING 101 MG/DL (70-100); POTASSIUM SERUM 3.7 MEQ/L (3.5-5.1); SODIUM LEVEL 136 MEQ/L (136-145)
[2018-10-06] MEDS: HumaLOG INSULIN (NovoLOG) PER UNIT SC ×4 (07:30→21:00)
[2018-10-06] MEDS: SANTYL OINT 30GM TOP (09:00)
[2018-10-06] MEDS: LACTULOSE 20 GM/30 ML SYRUP UD PO (10:31)
[2018-10-06] MEDS: OMEPRAZOLE 20 MG CAP PO (10:32)
[2018-10-06] MEDS: SENOKOT S TAB PO ×2 (10:32→21:54)
[2018-10-06] MEDS: ATORVASTATIN 20 MG TAB PO (10:32)
[2018-10-06] MEDS: (RENVELA) SEVELAMER **CARBONate** 800 MG TAB PO ×3 (10:32→17:05)
[2018-10-06] MEDS: MIDODRINE 5 MG TAB PO ×3 (10:33→17:05)
[2018-10-06] MEDS: GABAPENTIN 300 MG CAP PO ×3 (10:33→21:54)
[2018-10-06] MEDS: ASPIRIN 81 MG ENTERIC TAB PO (10:33)
[2018-10-06] MEDS: DIGOXIN 0.0625MG PER 1/2TABLET PO (10:42)
[2018-10-06] MEDS: NS 250 ML IV (10:45)
[2018-10-06 11:36] LABS: BEDSIDE GLUCOSE 110 MG/DL (83-110)
[2018-10-06 16:43] LABS: BEDSIDE GLUCOSE 121 MG/DL (83-110)
[2018-10-06 17:34] LABS: HEMATOCRIT 30.5 % (42.0-52.0); HEMOGLOBIN 8.6 g/dl (13.5-17.5)
[2018-10-06 21:41] LABS: BEDSIDE GLUCOSE 135 MG/DL (83-110)
[2018-10-07 03:57] LABS: HEMATOCRIT 29.8 % (42.0-52.0); HEMOGLOBIN 8.4 g/dl (13.5-17.5)
[2018-10-07] MEDS: SODIUM CHLORIDE 0.9% INJ 10 ML SYR IV ×3 (05:28→21:31)
[2018-10-07 05:35] LABS: HEMATOCRIT 30.1 % (42.0-52.0); HEMOGLOBIN 8.5 g/dl (13.5-17.5); MEAN CORPUSCULAR HEMOGLOBIN 24.4 pg (27.0-33.0); MEAN CORPUSCULAR HGB CONC 28.2 g/dl (32.0-36.5); MEAN CORPUSCULAR VOLUME 86.2 fl (80.0-96.0); PLATELET COUNT, AUTOMATED 121 10^3/uL (150-450); RED BLOOD COUNT 3.49 10^6/uL (4.30-6.10); RED CELL DISTRIBUTION WIDTH 17.9 % (11.5-14.5); WHITE BLOOD COUNT 8.1 10^3/uL (4.0-10.0)
[2018-10-07 06:03] LABS: ANION GAP 8 MEQ/L (8-16); BLOOD UREA NITROGEN 20 MG/DL (7-18); CARBON DIOXIDE LEVEL 29 MEQ/L (21-32); CHLORIDE LEVEL 99 MEQ/L (98-107); CREATININE FOR GFR 5.62 MG/DL (0.70-1.30); GLUCOSE, FASTING 96 MG/DL (70-100); POTASSIUM SERUM 3.9 MEQ/L (3.5-5.1); SODIUM LEVEL 136 MEQ/L (136-145)
[2018-10-07] MEDS: GABAPENTIN 300 MG CAP PO ×3 (06:17→21:31)
[2018-10-07] MEDS: ATORVASTATIN 20 MG TAB PO (06:17)
[2018-10-07] MEDS: OMEPRAZOLE 20 MG CAP PO (06:17)
[2018-10-07] MEDS: MIDODRINE 5 MG TAB PO ×3 (06:17→16:30)
[2018-10-07] MEDS: SENOKOT S TAB PO ×2 (06:17→21:31)
[2018-10-07] MEDS: ASPIRIN 81 MG ENTERIC TAB PO (06:17)
[2018-10-07] MEDS: (RENVELA) SEVELAMER **CARBONate** 800 MG TAB PO ×3 (06:17→17:40)
[2018-10-07] MEDS: LACTULOSE 20 GM/30 ML SYRUP UD PO (06:18)
[2018-10-07] MEDS: HumaLOG INSULIN (NovoLOG) PER UNIT SC ×4 (06:18→21:00)
[2018-10-07] MEDS: HEPARIN 1,000 UNITS/ML 10ML VIAL (FOR RADIOLOGY& DIALYSIS ONLY) XX (11:00)
[2018-10-07 12:21] LABS: BEDSIDE GLUCOSE 95 MG/DL (83-110)
[2018-10-07 14:25] LABS: ERYTHROCYTE SEDIMENTATION RATE 63 mm/hr (0-20)
[2018-10-07 14:35] LABS: C REACTIVE PROTEIN QUANTITATIV 3.86 MG/DL (0.00-0.30)
[2018-10-07 16:13] LABS: BEDSIDE GLUCOSE 128 MG/DL (83-110)
[2018-10-07 20:14] LABS: BEDSIDE GLUCOSE 82 MG/DL (83-110)
[2018-10-08] MEDS: SODIUM CHLORIDE 0.9% INJ 10 ML SYR IV ×3 (05:52→21:43)
[2018-10-08 06:17] LABS: HEMATOCRIT 31.4 % (42.0-52.0); HEMOGLOBIN 8.7 g/dl (13.5-17.5); MEAN CORPUSCULAR HEMOGLOBIN 24.1 pg (27.0-33.0); MEAN CORPUSCULAR HGB CONC 27.7 g/dl (32.0-36.5); PLATELET COUNT, AUTOMATED 121 10^3/uL (150-450); RED BLOOD COUNT 3.61 10^6/uL (4.30-6.10); RED CELL DISTRIBUTION WIDTH 18.1 % (11.5-14.5); WHITE BLOOD COUNT 7.7 10^3/uL (4.0-10.0)
[2018-10-08 06:36] LABS: ANION GAP 12 MEQ/L (8-16); BLOOD UREA NITROGEN 13 MG/DL (7-18); CALCIUM LEVEL 8.2 MG/DL (8.8-10.2); CARBON DIOXIDE LEVEL 27 MEQ/L (21-32); CHLORIDE LEVEL 100 MEQ/L (98-107); CREATININE FOR GFR 4.17 MG/DL (0.70-1.30); GLOMERULAR FILTRATION RATE 18.3 (>42); GLUCOSE, FASTING 96 MG/DL (70-100); SODIUM LEVEL 139 MEQ/L (136-145)
[2018-10-08] MEDS: HumaLOG INSULIN (NovoLOG) PER UNIT SC ×4 (07:30→21:00)
[2018-10-08] MEDS: (RENVELA) SEVELAMER **CARBONate** 800 MG TAB PO ×2 (08:31→12:38)
[2018-10-08] MEDS: MIDODRINE 5 MG TAB PO ×3 (08:31→16:28)
[2018-10-08] MEDS: SENOKOT S TAB PO ×2 (08:31→21:10)
[2018-10-08] MEDS: ASPIRIN 81 MG ENTERIC TAB PO (08:31)
[2018-10-08] MEDS: GABAPENTIN 300 MG CAP PO ×3 (08:31→21:10)
[2018-10-08] MEDS: OMEPRAZOLE 20 MG CAP PO (08:31)
[2018-10-08] MEDS: ATORVASTATIN 20 MG TAB PO (08:31)
[2018-10-08] MEDS: DIGOXIN 0.0625MG PER 1/2TABLET PO (08:33)
[2018-10-08] MEDS: LACTULOSE 20 GM/30 ML SYRUP UD PO (08:34)
[2018-10-08 09:39] LABS: FERRITIN 994 NG/ML (26-388); IRON (FE) 46 UG/DL (65-175); PERCENT SATURATION 20.1 % (19.7-50.0); PHOSPHORUS LEVEL 1.9 MG/DL (2.5-4.9); TOTAL IRON BINDING CAPACITY 229 UG/DL (250-450)
[2018-10-08 11:20] LABS: BEDSIDE GLUCOSE 94 MG/DL (83-110)
[2018-10-08 16:48] LABS: BEDSIDE GLUCOSE 133 MG/DL (83-110)
[2018-10-08 20:10] LABS: BEDSIDE GLUCOSE 152 MG/DL (83-110)
[2018-10-09] MEDS: SODIUM CHLORIDE 0.9% INJ 10 ML SYR IV ×3 (06:00→20:51)
[2018-10-09] MEDS: HumaLOG INSULIN (NovoLOG) PER UNIT SC ×4 (07:30→21:00)
[2018-10-09] MEDS: LACTULOSE 20 GM/30 ML SYRUP UD PO (10:27)
[2018-10-09] MEDS: ASPIRIN 81 MG ENTERIC TAB PO (10:28)
[2018-10-09] MEDS: GABAPENTIN 300 MG CAP PO ×3 (10:28→20:51)
[2018-10-09] MEDS: ATORVASTATIN 20 MG TAB PO (10:28)
[2018-10-09] MEDS: MIDODRINE 5 MG TAB PO ×3 (10:28→16:58)
[2018-10-09] MEDS: OMEPRAZOLE 20 MG CAP PO (10:28)
[2018-10-09] MEDS: SENOKOT S TAB PO ×2 (10:28→20:51)
[2018-10-09 11:25] LABS: BASO % 0.4 % (0.0-1.0); EOS # 0.2 10^3/uL (0.0-0.50); EOS % 2.4 % (0.0-3.0); HEMOGLOBIN 8.3 g/dl (13.5-17.5); IMMATURE GRANULOCYTE % 0.9 % (0-3.0); LYMPH # 0.7 10^3/uL (1.5-4.5); LYMPH % 9.4 % (24.0-44.0); MEAN CORPUSCULAR HGB CONC 27.7 g/dl (32.0-36.5); MEAN CORPUSCULAR VOLUME 86.7 fl (80.0-96.0); MONO # 0.7 10^3/uL (0.0-0.8); MONO % 9.3 % (0.0-5.0); NEUTROPHILS # 5.5 10^3/uL (1.8-7.7); NEUTROPHILS % 77.6 % (36.0-66.0); PLATELET COUNT, AUTOMATED 111 10^3/uL (150-450); RED BLOOD COUNT 3.46 10^6/uL (4.30-6.10); RED CELL DISTRIBUTION WIDTH 18.2 % (11.5-14.5)
[2018-10-09 11:53] LABS: ERYTHROCYTE SEDIMENTATION RATE 58 mm/hr (0-20)
[2018-10-09 12:28] LABS: ANION GAP 10 MEQ/L (8-16); BLOOD UREA NITROGEN 21 MG/DL (7-18); C REACTIVE PROTEIN QUANTITATIV 3.37 MG/DL (0.00-0.30); CALCIUM LEVEL 7.8 MG/DL (8.8-10.2); CARBON DIOXIDE LEVEL 28 MEQ/L (21-32); CHLORIDE LEVEL 103 MEQ/L (98-107); CREATININE FOR GFR 5.71 MG/DL (0.70-1.30); GLOMERULAR FILTRATION RATE 12.8 (>42); GLUCOSE, FASTING 145 MG/DL (70-100); POTASSIUM SERUM 3.6 MEQ/L (3.5-5.1); SODIUM LEVEL 141 MEQ/L (136-145)
[2018-10-09 12:47] LABS: NT-PRO BNP > 175000 PG/ML (<125)
[2018-10-10 02:39] LABS: BEDSIDE GLUCOSE 147 MG/DL (83-110)
[2018-10-10 02:39] LABS: BEDSIDE GLUCOSE 98 MG/DL (83-110)
[2018-10-10 02:39] LABS: BEDSIDE GLUCOSE 155 MG/DL (83-110)
[2018-10-10 02:39] LABS: BEDSIDE GLUCOSE 130 MG/DL (83-110)
[2018-10-10] MEDS: SODIUM CHLORIDE 0.9% INJ 10 ML SYR IV ×3 (05:29→21:46)
[2018-10-10 05:44] LABS: BASO % 0.4 % (0.0-1.0); EOS # 0.2 10^3/uL (0.0-0.50); HEMATOCRIT 30.2 % (42.0-52.0); HEMOGLOBIN 8.4 g/dl (13.5-17.5); IMMATURE GRANULOCYTE % 0.8 % (0-3.0); LYMPH # 0.8 10^3/uL (1.5-4.5); LYMPH % 8.9 % (24.0-44.0); MEAN CORPUSCULAR HEMOGLOBIN 24.2 pg (27.0-33.0); MEAN CORPUSCULAR HGB CONC 27.8 g/dl (32.0-36.5); MONO # 0.9 10^3/uL (0.0-0.8); MONO % 10.2 % (0.0-5.0); NEUTROPHILS # 6.5 10^3/uL (1.8-7.7); NEUTROPHILS % 77.7 % (36.0-66.0); PLATELET COUNT, AUTOMATED 117 10^3/uL (150-450); RED BLOOD COUNT 3.47 10^6/uL (4.30-6.10); RED CELL DISTRIBUTION WIDTH 18.3 % (11.5-14.5); WHITE BLOOD COUNT 8.4 10^3/uL (4.0-10.0)
[2018-10-10 06:10] LABS: ANION GAP 8 MEQ/L (8-16); BLOOD UREA NITROGEN 25 MG/DL (7-18); CALCIUM LEVEL 8.2 MG/DL (8.8-10.2); CARBON DIOXIDE LEVEL 29 MEQ/L (21-32); CHLORIDE LEVEL 102 MEQ/L (98-107); CREATININE FOR GFR 6.78 MG/DL (0.70-1.30); GLOMERULAR FILTRATION RATE 10.5 (>42); GLUCOSE, FASTING 111 MG/DL (70-100); POTASSIUM SERUM 3.6 MEQ/L (3.5-5.1); SODIUM LEVEL 139 MEQ/L (136-145)
[2018-10-10] MEDS: ATORVASTATIN 20 MG TAB PO (06:28)
[2018-10-10] MEDS: GABAPENTIN 300 MG CAP PO ×3 (06:28→21:46)
[2018-10-10] MEDS: MIDODRINE 5 MG TAB PO ×3 (06:28→16:12)
[2018-10-10] MEDS: OMEPRAZOLE 20 MG CAP PO (06:28)
[2018-10-10] MEDS: ASPIRIN 81 MG ENTERIC TAB PO (06:28)
[2018-10-10] MEDS: SENOKOT S TAB PO ×2 (06:29→21:46)
[2018-10-10] MEDS: DIGOXIN 0.0625MG PER 1/2TABLET PO (06:29)
[2018-10-10] MEDS: LACTULOSE 20 GM/30 ML SYRUP UD PO (06:29)
[2018-10-10] MEDS: HumaLOG INSULIN (NovoLOG) PER UNIT SC ×5 (07:53→21:00)
[2018-10-10] MEDS ORDERED: IRON SUCROSE 100MG 5ML VIAL (J1756 PER 1MG) IV (08:00)
[2018-10-10] MEDS: HEPARIN 1,000 UNITS/ML 10ML VIAL (FOR RADIOLOGY& DIALYSIS ONLY) XX (10:30)
[2018-10-10 13:06] LABS: BEDSIDE GLUCOSE 116 MG/DL (83-110)
[2018-10-10 16:20] LABS: BEDSIDE GLUCOSE 98 MG/DL (83-110)
[2018-10-10] MEDS ORDERED: fentaNYL 100 MCG/2 ML INJECTION (J3010) As Ordered (16:28)
[2018-10-10] MEDS ORDERED: LIDOCAINE 2% INJ 100 MG/5 ML SDV (FOR ANES.) As Ordered (16:28)
[2018-10-10] MEDS ORDERED: PROPOFOL 200 MG/20 ML VIAL As Ordered (16:28)
[2018-10-10] MEDS: CETACAINE SPRAY 5GM As Ordered (17:01)
[2018-10-10 20:44] LABS: BEDSIDE GLUCOSE 119 MG/DL (83-110)
[2018-10-11] MEDS: SODIUM CHLORIDE 0.9% INJ 10 ML SYR IV (05:27)
[2018-10-11 05:46] LABS: BASO % 0.3 % (0.0-1.0); EOS # 0.1 10^3/uL (0.0-0.50); EOS % 0.9 % (0.0-3.0); HEMATOCRIT 30.4 % (42.0-52.0); HEMOGLOBIN 8.3 g/dl (13.5-17.5); IMMATURE GRANULOCYTE % 0.8 % (0-3.0); LYMPH # 0.7 10^3/uL (1.5-4.5); LYMPH % 8.7 % (24.0-44.0); MEAN CORPUSCULAR HEMOGLOBIN 23.6 pg (27.0-33.0); MEAN CORPUSCULAR HGB CONC 27.3 g/dl (32.0-36.5); MEAN CORPUSCULAR VOLUME 86.6 fl (80.0-96.0); MONO # 0.7 10^3/uL (0.0-0.8); MONO % 9.7 % (0.0-5.0); NEUTROPHILS % 79.6 % (36.0-66.0); PLATELET COUNT, AUTOMATED 119 10^3/uL (150-450); RED BLOOD COUNT 3.51 10^6/uL (4.30-6.10); RED CELL DISTRIBUTION WIDTH 18.6 % (11.5-14.5); WHITE BLOOD COUNT 7.6 10^3/uL (4.0-10.0)
[2018-10-11 06:12] LABS: ANION GAP 7 MEQ/L (8-16); BLOOD UREA NITROGEN 17 MG/DL (7-18); CALCIUM LEVEL 8.3 MG/DL (8.8-10.2); CARBON DIOXIDE LEVEL 30 MEQ/L (21-32); CHLORIDE LEVEL 102 MEQ/L (98-107); CREATININE FOR GFR 4.57 MG/DL (0.70-1.30); GLOMERULAR FILTRATION RATE 16.5 (>42); GLUCOSE, FASTING 106 MG/DL (70-100); POTASSIUM SERUM 3.9 MEQ/L (3.5-5.1); SODIUM LEVEL 139 MEQ/L (136-145)
[2018-10-11] MEDS: HumaLOG INSULIN (NovoLOG) PER UNIT SC ×2 (07:30→12:00)
[2018-10-11] MEDS: MIDODRINE 5 MG TAB PO ×2 (08:25→11:48)
[2018-10-11] MEDS: SENOKOT S TAB PO (10:21)
[2018-10-11] MEDS: GABAPENTIN 300 MG CAP PO (10:21)
[2018-10-11] MEDS: ACETAMINOPHEN TAB 650MG DOSE (2X325MG) PO (10:21)
[2018-10-11] MEDS: OMEPRAZOLE 20 MG CAP PO (10:21)
[2018-10-11] MEDS: ASPIRIN 81 MG ENTERIC TAB PO (10:21)
[2018-10-11] MEDS: ATORVASTATIN 20 MG TAB PO (10:22)
[2018-10-11] MEDS: LACTULOSE 20 GM/30 ML SYRUP UD PO (10:22)
[2018-10-11 12:18] LABS: BEDSIDE GLUCOSE 138 MG/DL (83-110)
== END 2018-10-11 13:55 | disposition home or self-care (01) | DRG 871 ==
LOC: M PCU 09-29 17:33 → M MS5PR 10-04 20:15 → M ED 10:28 → M ED INP 16:25 → M ICU 17:30
PROVIDERS: Orthopaedic Surgery
PROC: 0W9930Z Drainage of Right Pleural Cavity with Drainage Device, Percutaneous Approach (ICD-10-PCS; principal; 2018-10-10 16:45)
PROC: 04HK33Z Insertion of Infusion Device into Right Femoral Artery, Percutaneous Approach (ICD-10-PCS; 2018-10-10 16:45)
PROC: 02HV33Z Insertion of Infusion Device into Superior Vena Cava, Percutaneous Approach (ICD-10-PCS; 2018-10-10 16:45)
PROC: 0JPT0XZ Removal of Tunneled Vascular Access Device from Trunk Subcutaneous Tissue and Fascia, Open Approach (ICD-10-PCS; 2018-10-10 16:45)
PROC: 02PY33Z Removal of Infusion Device from Great Vessel, Percutaneous Approach (ICD-10-PCS; 2018-10-10 16:45)
PROC: 02HV33Z Insertion of Infusion Device into Superior Vena Cava, Percutaneous Approach (ICD-10-PCS; 2018-10-10 16:45)
PROC: 0JH63XZ Insertion of Tunneled Vascular Access Device into Chest Subcutaneous Tissue and Fascia, Percutaneous Approach (ICD-10-PCS; 2018-10-10 16:45)
PROC: B246ZZ4 Ultrasonography of Right and Left Heart, Transesophageal (ICD-10-PCS; 2018-10-10 16:45)
DX: A41.9 Sepsis, unspecified organism (principal); N18.6 End stage renal disease; J96.02 Acute respiratory failure with hypercapnia; R65.21 Severe sepsis with septic shock; J15.211 Pneumonia due to Methicillin susceptible Staphylococcus aureus; I50.32 Chronic diastolic (congestive) heart failure; K62.5 Hemorrhage of anus and rectum; I48.91 Unspecified atrial fibrillation; L89.152 Pressure ulcer of sacral region, stage 2; T23.021A Burn of unspecified degree of single right finger (nail) except thumb, initial encounter; I27.20 Pulmonary hypertension, unspecified; I48.0 Paroxysmal atrial fibrillation; I35.0 Nonrheumatic aortic (valve) stenosis; I95.1 Orthostatic hypotension; E11.40 Type 2 diabetes mellitus with diabetic neuropathy, unspecified; D69.6 Thrombocytopenia, unspecified; D63.1 Anemia in chronic kidney disease; Z85.46 Personal history of malignant neoplasm of prostate; Z89.512 Acquired absence of left leg below knee; K57.30 Diverticulosis of large intestine without perforation or abscess without bleeding; K64.8 Other hemorrhoids; Z79.899 Other long term (current) drug therapy; Z88.0 Allergy status to penicillin; Z88.8 Allergy status to other drugs, medicaments and biological substances; Z79.82 Long term (current) use of aspirin; Z87.891 Personal history of nicotine dependence; X19.XXXA Contact with other heat and hot substances, initial encounter; Y92.239 Unspecified place in hospital as the place of occurrence of the external cause

== ENCOUNTER 2018-10-17 08:15 | Inpatient (IN) | payer MEDICARE, MEDICAID ==
[~2018-10-17] VITALS: Ht 188 cm; Wt 82.1 kg
[2018-10-17] VITALS (18 sets, daily range): BP systolic 72–122; BP diastolic 41–58
[~2018-10-17 08:15] MED LIST changes: +ACET1TAB55 PO; -ACETAMINOPHEN 325 MG TAB PO; +ARTI99.0 OU; +ASPI1TAB PO; +ASPI325T PO; +ATOR40TA75 PO; +BISA10SU4 PR; +CALC1CAP PO; +CALCIUM PO; +CARD240T2 PO; +CIPR0.2S AS; +CIPRHCOTIC AU; +COLA100C5 PO; +DIGO0.12 PO; +DILT0.05 PO; +DILT300C21 PO; +DILT30TA PO; +DILT60TA PO; +DOCU100C16 PO; +DOCU100T8 PO; +ECOT81TA5 PO; +ELIQ2.5T PO; +ENEM1ENE4 PR; +FLUTISP NARES; +GABA-1171 PO; +GABA-843 PO; +GLUC1KIT SC; +HYDR-3713 PO; +JANU100T PO; +LACROIN OU; +LACT10SO3 PO; +LEVA1TAB2 PO; +LIDO5TD TD; +METO25TA4 PO; +METO50TA7 PO; +MIDO5TA PO; +MILK120011 PO; +MILKSUS5 PO; +NEPHTAB PO; +NEPRLIQ PO; +NEPRLIQ3 PO; +NORCOTAB PO; +OCEA0.654; +OMEP20TA PO; +POLY1POW38; +PRIL20TA2 PO; +PROC1INJ SC; +RENA1TAB PO; +RENATAB5 PO; +RENV2TAB PO; +SALI0.6528; +SENN8.6T17 PO; +SEVE800T3 PO; -SLF 3 ML SYR IV; +TOPR50TA23 PO; +VIT D PO; +VITA-121 PO; +VITA-182 PO; +VITA100066 PO; +[UNRECOGNIZED DRUG - CODE] AU
[2018-10-17] MEDS ORDERED: NS 250 ML IV ONE (08:30)
[2018-10-17 09:03] LABS: BASO # 0.1 10^3/uL (0.0-0.2); BASO % 0.6 % (0.0-1.0); EOS # 0.1 10^3/uL (0.0-0.50); EOS % 1.1 % (0.0-3.0); HEMATOCRIT 33.6 % (42.0-52.0); HEMOGLOBIN 9.4 g/dl (13.5-17.5); LYMPH % 11.8 % (24.0-44.0); MEAN CORPUSCULAR HEMOGLOBIN 23.7 pg (27.0-33.0); MEAN CORPUSCULAR VOLUME 84.8 fl (80.0-96.0); MONO # 0.8 10^3/uL (0.0-0.8); MONO % 9.9 % (0.0-5.0); NEUTROPHILS # 6.2 10^3/uL (1.8-7.7); NEUTROPHILS % 75.5 % (36.0-66.0); PLATELET COUNT, AUTOMATED 126 10^3/uL (150-450); RED BLOOD COUNT 3.96 10^6/uL (4.30-6.10); WHITE BLOOD COUNT 8.2 10^3/uL (4.0-10.0)
--- NOTE | 2018-10-17 09:24 | REP ---
Portable chest x-ray: Single view. History: Systemic inflammatory response syndrome. Comparison chest x-ray: October 07, 2018. Findings: EKG monitoring electrodes overlie the chest. A left internal jugular tunneled catheter is seen in place with its tip in the expected location in the superior vena cava. The right IJ line which was seen on October 07, 2018 prior radiograph has been moved. There is blunting of the pleural angles bilaterally and there is pleural thickening along the right lateral chest wall which is similar to the prior radiograph. There is a fairly large opacity in the right midlung zone today consistent with recurrent infiltrate. There is some hazy parenchymal opacity in the left base as well which is also more prominent than the October 07, 2018 study. Impression: Recurrent or new opacities bilaterally. Pleural changes as before. Electronically Signed by Jorge Perea MD 10/17/2018 04:47 P
[2018-10-17 09:30] LABS: INFLUENZA A AMPLIFICATION NEGATIVE (NEGATIVE); INFLUENZA B AMPLIFICATION NEGATIVE (NEGATIVE)
[2018-10-17] MEDS ORDERED: LevoFLOXacin IV 750 MG in APPROPRIATE DILUENT 1 EA IV ONE (09:30)
[2018-10-17] MEDS ORDERED: HYDROCORTISONE 100 MG/2 ML VIAL (J1720) IV ONE (09:30)
[2018-10-17] MEDS ORDERED: NORCO, ANEXSIA 5/325MG TABLET (HYDROcodone/ACETAMINOPHEN) PO ONE (09:30)
[2018-10-17 09:40] LABS: ALBUMIN 2.4 GM/DL (3.2-5.2); BILIRUBIN,DIRECT 0.4 MG/DL (0.0-0.2); BILIRUBIN,TOTAL 0.7 MG/DL (0.2-1.0); CALCIUM LEVEL 8.6 MG/DL (8.8-10.2); CREATININE FOR GFR 4.82 MG/DL (0.70-1.30); GLOMERULAR FILTRATION RATE 15.5 (>42); MB/CK RELATIVE INDEX 4.57 (< OR =4); POTASSIUM SERUM 3.3 MEQ/L (3.5-5.1); TOTAL PROTEIN 7.2 GM/DL (6.4-8.2); TROPONIN I 1.54 NG/ML (< 0.10)
[2018-10-17 09:43] LABS: ABG BASE EXCESS -0.8 (-2.0-2.0); ABG HCO3 25.2 MEQ/L (22.0-26.0); ABG O2 SATURATION 96.2 % (95.0-99.0); ABG PARTIAL PRESSURE CO2 47.7 mmHg (35.0-45.0); ABG PARTIAL PRESSURE O2 87.4 mmHg (75.0-100.0); ABG STANDARD HCO3 23.8 MEQ/L (22.0-26.0); ABG TOTAL CO2 26.6 MEQ/L (23.0-31.0)
[2018-10-17] MEDS ORDERED: IPRATROPIUM 0.5MG/ALBUTEROL 2.5MG INH SOL UD 3ML (DUONEB)(J7620) NEB ONE (09:45)
[2018-10-17] MEDS ORDERED: ALBUTEROL SULFATE 2.5 MG/0.5 ML INH NEB SOLN INH ONE (09:45)
[2018-10-17 10:14] LABS: C REACTIVE PROTEIN QUANTITATIV 5.4 MG/DL (0.00-0.30); MAGNESIUM LEVEL 1.9 MG/DL (1.8-2.4)
[2018-10-17 10:25] LABS: INR 1.34; PROTHROMBIN TIME 16.8 SECONDS (12.1-14.4)
[2018-10-17 10:26] LABS: PARTIAL THROMBOPLASTIN TIME 34.2 SECONDS (25.4-37.6)
--- NOTE | 2018-10-17 10:40 | REP ---
CT chest without contrast: History: Rule out recurrent parapneumonic effusion. Hypotension and end-stage renal disease. Comparison chest CT study: September 22, 2018. CT findings: The patient has a left-sided Jtopzl-[id number] catheter. Tip of this is seen in the proximal azygos venous arch. There are small bilateral pleural effusions noted. The left effusion is new when compared with September 22, 2018. The right effusion is smaller than on September 22, 2018. There are scattered mediastinal lymph nodes. No significant pericardial effusion is seen. There is a small quantity of air in the right pleural space consistent with previous instrumentation. No other evidence of pneumothorax is seen. There are fairly heavy infiltrates in the lung bases bilaterally. There is some consolidation posteriorly in the right upper lobe as well. In the abdomen, renal cortical atrophy and multiple renal cysts are seen. The spleen is somewhat enlarged as before. Calcified gallstones are seen. On bone window settings, there is a homogeneous ground-glass opacity pattern in the skeletal system consistent with renal osteodystrophy. Impression: 1. Small bilateral pleural effusions, new on the left and smaller on the right than on September 22, 2018. There is some loculated air in the right pleural space post recent instrumentation. 2. Patchy bilateral opacities mostly in the lower lobes and the right upper lobe. 3. Stable mediastinal adenopathy. 4. Left-sided Ugfneg-A-Gqus catheter tip currently in the proximal azygos venous arch. 5. Stable splenomegaly. 6. Cholelithiasis and multiple renal cysts and bilateral renal cortical atrophy. Electronically Signed by Jorge Perea MD 10/17/2018 04:49 P
[2018-10-17] MEDS ORDERED: DIGO0.12 PO (11:01)
[2018-10-17] MEDS ORDERED: MIDO5TA PO (11:01)
--- NOTE | 2018-10-17 11:08 | REP ---
CT ABDOMEN AND PELVIS WITHOUT IV OR ORAL CONTRAST: HISTORY: Hypotension. End-stage renal disease. FINDINGS: Bilateral pleural effusions are seen as described in the chest CT report. here is minimal ascites along the left pericolic gutter. Renal cortical atrophy and numerous renal cysts consistent with end-stage renal disease. Mild splenomegaly, unchanged from September 22, 2018. There is a diffuse edema pattern in the subcutaneous soft tissues of the flanks bilaterally. There is a right inguinal hernia transmitting unobstructed small bowel loops and containing some fluid. Normal appendix is seen. Right colonic diverticulosis is noted. No CT evidence of diverticulitis. Cholelithiasis is seen. Vascular calcification is noted diffusely. Homogeneous ground-glass opacity pattern in the medullary bone consistent with osteomalacia/renal osteodystrophy. IMPRESSION: Cholelithiasis. Minimal ascites. Right inguinal hernia containing unobstructed loops of small intestine. Right colonic diverticulosis without diverticulitis. Osteomalacia/renal osteodystrophy pattern in the bone marrow. No acute abdominal or pelvic abnormality. Electronically Signed by Jorge Perea MD 10/17/2018 04:50 P
[2018-10-17] MEDS ORDERED: VANCOMYCIN HCL 1,000 MG, VIAL MATE ADAPTER 1 EACH in D5W 250 ML IV ONE (11:15)
[2018-10-17] MEDS ORDERED: LACTULOSE 20 GM/30 ML SYRUP UD PO PRN (12:00)
[2018-10-17] MEDS ORDERED: FLUTICASONE PROP 0.05% NASAL SPRAY 16 GM (FLONASE) NARES PRN (12:00)
[2018-10-17] MEDS ORDERED: ONDANSETRON 4MG/2ML VIAL (J2405) IV PRN (12:00)
[2018-10-17] MEDS ORDERED: GLUCAGON FOR INJ 1 MG VIAL (J1610) SC PRN (13:45)
[2018-10-17] MEDS ORDERED: DEXTROSE 50% 50 ML SYRINGE IV PRN (13:45)
[2018-10-17] MEDS ORDERED: GLUCOSE 4 GM CHEW TABLET PO PRN (13:45)
--- NOTE | 2018-10-17 14:10 | PHACANCOPD ---
PHARMACY VANCOMYCIN DOSING Pt Demographics Demographics Patient Age:68 , Weight:92.600 , Gender: male Adjusted Body Weight Date: 10/17/18, Adjusted Body Weight: Kg Events Past 24 Hours Events Past 24 Hours: YES: Pending Diagnostics Vancomycin Vancomycin indication: SEPSIS Vancomycin Target Ranges: 10-20 mcg/ml Vancomycin Load Y/N: No Load Dose Date Time Vancomycin Load Dose: Date: Time: Vancomycin Dose Date: 10/17/18. Current Vancomycin Dose: [750MG IV HD] Intermittent Dosing?: Yes Labs Labs Item Value Date Time White Blood Count 8.2 10^3/uL 10/17/18 0828 Lactic Acid Level 2.3 MMOL/L *H 10/17/18 0828 Creatinine 4.82 MG/DL H 10/17/18 0836 C-Reactive Protein, Quantitative 5.40 MG/DL H 10/17/18 0835 Micro Microbiology 10/17/18 Blood Culture, Received Pending 10/17/18 Blood Culture, Received Pending Creatinine Clearance Date:10/17/18. Est Creatinine Clearance: [~17ml/min]. Pending Labs Vancomycin random level scheduled 10/18/18 @0500 Assessment and Plan Maintaining Current Dose?: Yes Reason for dose change: No Dose Change Pharmacist Note Pharmacist Note Date: 10/17/18. Pharmacist note: Day #1 empiric vancomycin tx initiated with a 1g dose given today, followed by post-dialysis dosing based on random levels for the treatment of sepsis - aiming for a goal trough of 10-20mcg/ml. The patient was recently here from 09/22/18 - 10/11/18 with MSSA pneumonia with parapneumonic effusion with bacteremia (SARAH<0.5), and is now presenting today with sepsis. He is s/p 16 days of IV abx from last admission (finished with IV ancef.) He was hypotensive on admit with an elevated lactic acid, elevated CRP, elevated pulse, WBC WNL, RR WNL, pulse ox WNL on room air, and afebrile. Chest CT today revealed "small bilateral pleural effusions, new on the left and smaller on the right than on September 22, 2018. There is some loculated air in the right pleural space post recent instrumentation. Patchy bilateral opacities mostly in the lower lobes and the right upper lobe." Blood cultures are pending. The patient receives hemodialysis on a normal schedule of M,W,F, and was dialyzed earlier today but only completed an hour. A random level has been scheduled to be drawn tomorrow, 10/18/18, @0500. We will continue to monitor and adjust dosing accordingly. [facility] Oct 17, 2018 14:10
--- NOTE | 2018-10-17 14:14 | HPEPDOC ---
General Date of Admission Oct 17, 2018 at 11:59 Chief Complaint The patient is a 68-year-old male admitted with a reason for visit of Hypotensi on. History of Present Illness 68-year-old male patient with underlying medical history of peripheral vascular disease with bilateral below-knee amputation, diabetes, end-stage renal disease, on dialysis Wednesday, Wednesday, Wednesday, Chronic hypotension, prostate cancer s/p surgery and RT, anemia of chronic disease, chronic elevated troponin, diastolic congestive heart failure, severe pulmonary artery hypertension, aortic stenosis, atrial fibrillation , diverticulosis , hemorrhoids, h/o hematochezia due to radiation proctitis s/p argon laser coagulation in 2016 ,and several bleeding rectal ulcers which were cauterized in May 2018, and recent hospitalization here from 09/22-10/11 for MSSA Bacteremia thought to be secondary to Pneumonia presented to the ED after he was noted to be hypotensive with a systolic pressure in the 50s after one hour of dialysis today. During this time, the patient states that he felt lightheaded and generally fatigued. Since his discharge, the patient does endorse that he has been having a nonproductive cough but denies any complaints of fevers, chills, chest pain, palpitations, abdominal pain, or any nausea/vomiting. In the ER, the patient's blood pressure improved back to his baseline (80s/50s with a MAP in the 50-60 range) following a 1L bolus. The patient will be admitted to the hospitalist service for further evaluation and management. Home Medications Scheduled (Digoxin) 125 Mcg Tab, 125 MCG PO Q2D, (Reported) Aspirin (Aspirin 81) 81 Mg Tab, 81 MG PO DAILY, (Reported) Atorvastatin Calcium (Atorvastatin Calcium) 40 Mg Tab, 40 MG PO DAILY, (Reported) Docusate Sodium (Docusate Sodium) 100 Mg Tab, 100 MG PO BID Gabapentin (Gabapentin) 300 Mg Cap, 300 MG PO TID, (Reported) Lactulose (Lactulose) 10 Gm/15 Ml Beckie, 15 ML PO DAILY, (Reported) Midodrine HCl (Midodrine HCl) 5 Mg Tab, 5 MG PO TID, (Reported) 0800 1200 AND 1600 Omeprazole Magnesium (Prilosec Otc) 20 Mg Tab, 20 MG PO DAILY, (Reported) Senna (Senna Laxative) 8.6 Mg Tab, 8.6 MG PO DAILY for constipation Scheduled PRN Fluticasone Propionate (Fluticasone Propionate) 50 Mcg/Act Spr, 2 SPRAYS NARES QHS PRN for CONGESTION, (Reported) Allergies Coded Allergies: Penicillins (Verified Allergy, Mild, RASH, 09/22/18) Heparin (Verified Adverse Reaction, Severe, HIT - 09/2016, 09/22/18) Past Medical History Medical History As noted in HPI. Surgical History 1. History of recurrent gastrointestinal (GI) bleeding with multiple colonoscopies including May of 2018, March of 2017, August of 2016 he had a colonoscopy and endoscopy. 2. 09/2016 left below-knee amputation. 3. December of 2016 right below-knee amputation. Social History * Smoker: former Smoker (smoked 2 packs per day of tobacco for 30 years, quit approximately 5 years ago.) Alcohol: Denies Drugs: denies Lives with his . Functionally dependent for ADLs. Review of Systems Other systems 10 point review of systems negative unless otherwise specified in HPI. Physical Examination General Exam: Positive: Alert, Cooperative, No Acute Distress ENT Exam: Positive: Atraumatic, Mucous membr. moist/pink Chest Exam: Positive: Diminished Heart Exam: Positive: Tachycardic, Irregular Rhythm, Normal S1, Normal S2 Telemetry: Positive: Atrial fibrillation Abdomen Exam: Positive: Soft; Negative: Tenderness Extremity Exam: Positive: Other (b/l lower extremity BKA ) Skin Exam: Positive: Other skin issue (Right index finger noted to have necrotic tissue with eschar formation) Vital Signs Vital Signs Date Time Temp Pulse Resp B/P (MAP) Pulse Ox O2 Delivery O2 Flow Rate FiO2 10/17/18 13:30 101 83/44 (57) 95 Room Air 10/17/18 13:01 98.4 18 10/17/18 12:26 2.0 Laboratory Data Labs 24H Laboratory Tests 2 10/17/18 08:28: Immature Granulocyte % (Auto) 1.1, White Blood Count 8.2, Red Blood Count 3.96L, Hemoglobin 9.4L, Hematocrit 33.6L, Mean Corpuscular Volume 84.8, Mean Corpuscular Hemoglobin 23.7L, Mean Corpuscular Hemoglobin Concent 28.0L, Red Cell Distribution Width 20.4H, Platelet Count 126L, Neutrophils (%) (Auto) 75.5H, Lymphocytes (%) (Auto) 11.8L, Monocytes (%) (Auto) 9.9H, Eosinophils (%) (Auto) 1.1, Basophils (%) (Auto) 0.6, Neutrophils # (Auto) 6.2, Lymphocytes # (Auto) 1.0L, Monocytes # (Auto) 0.8, Eosinophils # (Auto) 0.1, Basophils # (Auto) 0.1, Nucleated Red Blood Cells % (auto) 1.5H, Lactic Acid Level 2.3*H 10/17/18 08:35: Prothrombin Time 16.8H, Prothromb Time International Ratio 1.34, Activated Partial Thromboplast Time 34.2, Magnesium Level 1.9, C-Reactive Protein, Quantitative 5.40H, Influenza Type A (RT-PCR) NEGATIVE, Influenza Type B (RT- PCR) NEGATIVE 10/17/18 08:36: Anion Gap 10, Glomerular Filtration Rate 15.5L, Calcium Level 8.6L, Aspartate Amino Transf (AST/SGOT) 240H, Alanine Aminotransferase (ALT/SGPT) 31, Alkaline Phosphatase 174H, Total Bilirubin 0.7, Direct Bilirubin 0.4H, Total Creatine Kinase 46, Creatine Kinase MB 2.0, Creatine Kinase MB Relative Index 4.57H, Troponin I 1.54*H, Total Protein 7.2, Albumin 2.4L, Albumin/Globulin Ratio 0.50L 10/17/18 09:35: Blood Gas Bicarbonate Standard 23.8, Arterial Blood pH 7.340L, Arterial Blood Partial Pressure CO2 47.7H, Arterial Blood Partial Pressure O2 87.4, Arterial Blood Total CO2 26.6, Arterial Blood HCO3 25.2, Arterial Blood Base Excess -0.8, Arterial Blood Oxygen Saturation 96.2 10/17/18 13:24: Lactic Acid Followup at 4 Hours 1.5 10/17/18 13:47: 10/17/18 13:49: Bedside Glucose (Misc Panel) 133H CBC/BMP Laboratory Tests 10/17/18 08:28 Red Blood Count 3.96 L, Mean Corpuscular Volume 84.8, Mean Corpuscular Hemoglobin 23.7 L, Mean Corpuscular Hemoglobin Concent 28.0 L, Red Cell Distribution Width 20.4 H, Neutrophils (%) (Auto) 75.5 H, Lymphocytes (%) (Auto) 11.8 L, Monocytes (%) (Auto) 9.9 H, Eosinophils (%) (Auto) 1.1, Basophils (%) (Auto) 0.6, Neutrophils # (Auto) 6.2, Lymphocytes # (Auto) 1.0 L, Monocytes # (Auto) 0.8, Eosinophils # (Auto) 0.1, Basophils # (Auto) 0.1 10/17/18 08:36 Microbiology Microbiology 10/17/18 Blood Culture, Received Pending 10/17/18 Blood Culture, Received Pending Plan / VTE VTE Prophylaxis Ordered?: Yes Plan Plan Hypotension possibly 2/2 underlying HCAP vs Infected Right Index Finger B/P improved with IVF hydration in the ER CT Chest notable for B/L patchy opacities Right Index finger with eschar formation noted--follows with Dr. Connell as an outpatient, last seen in office on 09/20/18. I discussed the case with Dr. Langston who will see the patient in consult. Blood cultures obtained We will empirically cover the patient with Vanco/Meropenem for now Cont to monitor in the ICU Lactic Acidosis 2/2 Above s/p Gentle IVF Hydration in the ER Repeat LA pending Elevated Troponin Level Troponin noted to be 1.5 in the ER EKG with non-specific changes Patient denies chest pain, palpitations Dr. Renner of Cardiology contacted in the ER, states that this is likely demand ischemia from hypotension from possible underlying infection--he recommends that there is no indication for transfer and cardiac cath at this time--Cont med management with ASA, Statin Paroxysmal A fib Cont Digoxin Not on AC 2/2 Hx of GI Bleed ESRD on HD Nephro on board Severe pulmonary hypertension with chronic right heart failure Fluid optimization through HD as per Nephro Moderate Calcific aortic stenosis with moderate aortic regurgitation Chronic hypotension Possibly due to ESRD and CHF status Cont midodrine (Baseline B/P 80s/50s) Peripheral vascular disease with bilateral below knee amputations Continue aspirin and statin. 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 The patient is a FULL CODE. CHAYITO RAMOS MD Oct 17, 2018 14:14
[2018-10-17 15:27] LABS: HEMOGLOBIN A1c 5.6 %
[2018-10-17] MEDS: GABAPENTIN 300 MG CAP PO SCH ×2 (16:20→20:01)
[2018-10-17] MEDS: MEROPENEM INJ 500 MG in APPROPRIATE DILUENT 1 EA IV SCH (16:20)
[2018-10-17] MEDS: MIDODRINE 5 MG TAB PO SCH (16:20)
[2018-10-17] MEDS: HumaLOG INSULIN (NovoLOG) PER UNIT SC SCH ×2 (16:58→20:02)
[2018-10-17 19:08] LABS: MB/CK RELATIVE INDEX 5.37 (< OR =4); TROPONIN I 1.33 NG/ML (< 0.10)
[2018-10-17] MEDS: DOCUSATE SODIUM 100 MG CAP PO SCH (20:01)
[2018-10-18] VITALS (18 sets, daily range): BP systolic 70–130; BP diastolic 43–89
[2018-10-18 02:55] LABS: HEMATOCRIT 32.5 % (42.0-52.0); HEMOGLOBIN 9.1 g/dl (13.5-17.5); MEAN CORPUSCULAR HEMOGLOBIN 23.8 pg (27.0-33.0); MEAN CORPUSCULAR VOLUME 85.1 fl (80.0-96.0); PLATELET COUNT, AUTOMATED 129 10^3/uL (150-450); RED BLOOD COUNT 3.82 10^6/uL (4.30-6.10); WHITE BLOOD COUNT 7.4 10^3/uL (4.0-10.0)
[2018-10-18 03:39] LABS: C REACTIVE PROTEIN QUANTITATIV 4.51 MG/DL (0.00-0.30); CREATININE FOR GFR 5.64 MG/DL (0.70-1.30); GLOMERULAR FILTRATION RATE 12.9 (>42); MAGNESIUM LEVEL 1.9 MG/DL (1.8-2.4); MB/CK RELATIVE INDEX 6.67 (< OR =4); POTASSIUM SERUM 3.9 MEQ/L (3.5-5.1); TROPONIN I 0.99 NG/ML (< 0.10); VANCOMYCIN RANDOM 13.5 UG/ML
--- NOTE | 2018-10-18 06:48 | CR ---
DATE OF CONSULTATION: 10/17/2018 REASON FOR CONSULTATION: Management of end-stage renal disease and sepsis in this gentleman with multiple chronic medical problems. HISTORY OF PRESENT ILLNESS: Mr. Fernandez is a 68-year-old -[place] male with multiple chronic problems including diabetes, coronary artery disease, peripheral vascular disease with bilateral lower extremity amputations, chronic hypotension and end-stage renal disease. He was recently discharged from [facility] after treatment of septic shock and pneumonia. He did have positive blood cultures during his last admission and was treated with IV antibiotics for two weeks prior to discharge. He presented to the outpatient dialysis clinic this morning with low blood pressure and then his blood pressure went down to 50/30 mmHg during dialysis. Due to this his dialysis was terminated and he was sent to the emergency room. He was given about 1 liter of normal saline in the dialysis clinic prior to transfer and then in the emergency room he has received another liter of normal saline. Now his blood pressure is about 70/42 mmHg which is close to his baseline. The patient is without any high-grade fever, vomiting or diarrhea. He does have history of rectal bleeding in the past and has required transfusions. He also has history of pneumonia and bacteremia. He has a gangrenous right index finger and some sacral decubitus ulcers which are only stage I to stage II. The patient could not complete his dialysis treatment today due to severe hypotension. PAST MEDICAL HISTORY: Past medical history significant for: 1. Type 2 diabetes. 2. Chronic hypotension. 3. End-stage renal disease. 4. Peripheral vascular disease. 5. History of prostate cancer. 6. History of recent admission for septic shock and pneumonia. 7. History of chronic diastolic congestive heart failure. 8. Severe pulmonary hypertension. 9. History of atrial fibrillation. 10. Aortic stenosis. 11. History of pleural effusions. PAST SURGICAL HISTORY: Past surgical history is significant for: 1. Bilateral lower extremity amputations. 2. Arteriovenous (AV) fistula in his left arm. PERSONAL AND SOCIAL HISTORY: The patient does not smoke or drink. He lives with his significant other. FAMILY HISTORY: Family history is negative for end-stage renal disease. REVIEW OF SYSTEMS: The patient was hypotensive coming to dialysis today but otherwise he denies any complaints. He was feeling weak at home. HEAD AND NECK: Without any acute changes. There is no nosebleed or sore throat. CARDIOVASCULAR SYSTEM: Significant for history of aortic stenosis and pulmonary hypertension and congestive heart failure. He denies any dyspnea or chest pain at present. RESPIRATORY SYSTEM: Significant for prior history of pleural effusion and pneumonia. The patient denies any hemoptysis or pleuritic type of chest pain. GASTROINTESTINAL (GI) SYSTEM: The GI system is significant for poor appetite but no vomiting or diarrhea. He does have prior history of rectal bleeding and colitis. NEUROLOGICAL SYSTEM: Negative for any seizures or new stroke. HEMATOLOGICAL SYSTEM: Significant for anemia of chronic kidney disease and transfusions due to rectal bleeding in the past. MUSCULOSKELETAL SYSTEM: Significant for right index finger gangrene and bilateral lower extremity amputations. MEDICATIONS: His home medications include: - aspirin 81 mg daily - Lipitor 40 mg daily - calcium acetate 667 mg three times a day with meals - gabapentin 300 mg three times a day - metoprolol 25 mg twice a day - midodrine 2.5 mg three times a day - Prilosec 20 mg daily - Renvela 800 mg three times a day with meals ALLERGIES: PENICILLIN and HEPARIN. PHYSICAL EXAMINATION: VITAL SIGNS: The patient is seen in the emergency room and his blood pressure at present is 72/48 mmHg and heart rate about 108 per minute. Respiratory rate 18 per minute and temperature 96.8 degrees Fahrenheit. HEENT: His head is atraumatic. He is edentulous and without any thrush or ulcers. Neck veins are moderately distended. He has received 2 liters of normal saline today. HEARET: Heart sounds are irregular and tachycardiac. LUNGS: Diminished breath sounds at lower one-third bilaterally. ABDOMEN: Soft and nontender and without a palpable organomegaly. EXTREMITIES: Without any cyanosis or clubbing. The right index finger is gangrenous and minimal drainage is noted. He has bilateral [id number] amputations. Left arm arteriovenous (AV) fistula is patent. LABORATORY DATA: WBC count is 8.2, hemoglobin 9.4, hematocrit 33.6. Sodium 141 and potassium 3.3. BUN is 20 and creatinine 4.82. Lactic acid level was 2.3. Troponin 1.54 and CPK is 46. C-reactive protein 5.4. The patient has a CAT scan of the abdomen and pelvis done which showed cholelithiasis and minimal ascites, a right inguinal hernia with unobstructed loops of small intestine. Diverticulosis is noted without any diverticulitis. Chest CT scan done today in the emergency room showed small bilateral pleural effusions and slightly bilateral opacities mostly in the lower lobes and the right upper lobe. PROBLEMS: 1. Hypotension most likely related to sepsis and his septic shock has improved with IV fluid. He has received just over 2 liters so far. I would suggest not to give him excessive amounts of fluid and probably maintenance fluid of 50-70 ML per hour is appropriate for now. His blood pressure is at about his chronic baseline. The patient already has blood cultures drawn and has received intravenous Levaquin. I would recommend to add vancomycin because of his recent history of staph aureus bacteremia. 2. End-stage renal disease. The patient could not complete his dialysis today due to hypotension. His volume status is now slightly decompensated due to IV fluids given. He is still hypotensive and not likely to tolerate dialysis today. We will plan on reevaluating him tomorrow. 3. Hypokalemia. This is mild and probably related to poor oral intake and partial dialysis this morning just before blood was drawn. I would recommend rechecking his electrolytes this afternoon. 4. Elevated troponin. The patient came in with hypotension and also has elevated troponin. This will need to be monitored and repeated. The patient is high risk for coronary syndrome and will need to be kept in the differential in addition to sepsis. 5. Anemia. The patient has end-stage renal disease and also has a history of rectal bleeding in the past. At present the anemia is mild and will not need any urgent intervention. Thank you for involving me in the care of Mr. Fernandez. I will follow him along with you.
[2018-10-18] MEDS: HumaLOG INSULIN (NovoLOG) PER UNIT SC SCH ×4 (08:07→21:00)
[2018-10-18] MEDS: MIDODRINE 5 MG TAB PO SCH ×3 (08:07→16:35)
[2018-10-18] MEDS: DOCUSATE SODIUM 100 MG CAP PO SCH ×2 (08:08→21:00)
[2018-10-18] MEDS: GABAPENTIN 300 MG CAP PO SCH ×3 (08:08→21:15)
[2018-10-18] MEDS: SENNA 8.6 MG TAB (SENOKOT) PO SCH (08:08)
[2018-10-18] MEDS: ASPIRIN 81 MG ENTERIC TAB PO SCH (08:08)
[2018-10-18] MEDS: OMEPRAZOLE 20 MG CAP PO SCH (08:08)
[2018-10-18] MEDS: ATORVASTATIN 20 MG TAB PO SCH (08:08)
[2018-10-18] MEDS ORDERED: FONDAPARINUX SODIUM 2.5 MG/0.5 ML SYR (J1652 PER 0.5MG) SC SCH (09:00)
[2018-10-18] MEDS: ACETAMINOPHEN TAB 650MG DOSE (2X325MG) PO PRN ×2 (12:19→21:16)
--- NOTE | 2018-10-18 13:35 | IPNPDOC ---
Subjective Date Seen The patient was seen on 10/18/18. Subjective Chief Complaint/HPI Patient seen and examined at the bedside. Reports that he is feeling better than yesterday. The patient's blood pressure has remained near his baseline. No acute overnight events noted. Objective Physical Examination General Exam: Positive: Alert, Cooperative, No Acute Distress ENT Exam: Positive: Atraumatic, Mucous membr. moist/pink Chest Exam: Positive: Diminished Heart Exam: Positive: Tachycardic, Irregular Rhythm, Normal S1, Normal S2 Telemetry: Positive: Atrial fibrillation Abdomen Exam: Positive: Soft; Negative: Tenderness Extremity Exam: Positive: Other (b/l lower extremity BKA ) Skin Exam: Positive: Other skin issue (Right index finger noted to have necrotic tissue with eschar formation) Assessment /Plan Plan/VTE VTE Prophylaxis Ordered?: Yes Plan Hypotension possibly 2/2 underlying HCAP vs Infected Right Index Finger CT Chest notable for B/L patchy opacities Right Index finger with eschar formation noted--follows with Dr. Connell as an outpatient, last seen in office on 09/20/18. I discussed the case with Dr. Langston who will see the patient in consult. Blood cultures unrevealing thus far Cont Vanco/Meropenem for now Cont to monitor in the ICU Lactic Acidosis 2/2 Above, resolved Elevated Troponin Level Troponin noted to be 1.5 in the ER, and this has subsequently downtrended EKG with non-specific changes Patient denies chest pain, palpitations Dr. Renner of Cardiology contacted in the ER, states that this is likely demand ischemia from hypotension from possible underlying infection--he recommends that there is no indication for transfer and cardiac cath at this time--Cont med management with ASA, Statin Paroxysmal A fib Cont Digoxin Not on AC 2/2 Hx of GI Bleed ESRD on HD Nephro on board Severe pulmonary hypertension with chronic right heart failure Fluid optimization through HD as per Nephro Moderate Calcific aortic stenosis with moderate aortic regurgitation Chronic hypotension Possibly due to ESRD and CHF status Cont midodrine (Baseline B/P 80s/50s) Peripheral vascular disease with bilateral below knee amputations Continue aspirin and statin. 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 The patient is a FULL CODE. VS, I&O, 24H, Fishbone Vital Signs/I&O Vital Signs Date Time Temp Pulse Resp B/P (MAP) Pulse Ox O2 Delivery O2 Flow Rate FiO2 10/18/18 12:00 97.2 119 16 126/54 (78) 95 Nasal Cannula 0.5 I&O- Last 24 Hours up to 6 AM 10/18/18 06:00 Intake Total 1810 ml Output Total 0 ml Balance 1810 ml Laboratory Data 24H LABS Laboratory Tests 2 10/17/18 13:47: Estimated Mean Plasma Glucose 114H, Hemoglobin A1c 5.6 10/17/18 13:49: Bedside Glucose (Misc Panel) 133H 10/17/18 16:03: Bedside Glucose (Misc Panel) 147H 10/17/18 17:14: Bedside Glucose (Misc Panel) 171H 10/17/18 18:31: Total Creatine Kinase 41, Creatine Kinase MB 2.0, Creatine Kinase MB Relative Index 5.37H, Troponin I 1.33H 10/17/18 19:58: Bedside Glucose (Misc Panel) 195H 10/18/18 02:43: Total Creatine Kinase 36L, Creatine Kinase MB 2.0, Creatine Kinase MB Relative Index 6.67H, Troponin I 0.99#H, Nucleated Red Blood Cells % (auto) 0.5H, Anion Gap 9, Glomerular Filtration Rate 12.9L, Blood Urea Nitrogen 27H, Creatinine 5.64H, Sodium Level 138, Potassium Level 3.9, Chloride Level 103, Carbon Dioxide Level 26, Calcium Level 8.0L, Magnesium Level 1.9, C-Reactive Protein, Quantitative 4.51H, Random Vancomycin Level 13.5 10/18/18 11:51: Bedside Glucose (Misc Panel) 153H CBC/BMP Laboratory Tests 10/18/18 02:43 Red Blood Count 3.82 L, Mean Corpuscular Volume 85.1, Mean Corpuscular Hemoglobin 23.8 L, Mean Corpuscular Hemoglobin Concent 28.0 L, Red Cell Distribution Width 20.1 H, Calcium Level 8.0 L, Total Creatine Kinase 36 L Microbiology Microbiology 10/17/18 Blood Culture - Preliminary, Resulted No growth after 24 hours . All specim... 10/17/18 Blood Culture - Preliminary, Resulted No growth after 24 hours . All specim... 10/17/18 Respiratory Virus Panel (PCR) ([facility]) - Final, Complete CHAYITO RAMOS MD Oct 18, 2018 13:35
[2018-10-18] MEDS ORDERED: VANCOMYCIN HCL 1,000 MG, VIAL MATE ADAPTER 1 EACH in D5W 250 ML IV SCH (16:00)
[2018-10-18] MEDS: **VANCO AFTER HD** MISC XX SCH (16:00)
[2018-10-18] MEDS: MEROPENEM INJ 500 MG in APPROPRIATE DILUENT 1 EA IV SCH (16:35)
--- NOTE | 2018-10-18 20:24 | IPN ---
DATE: 10/18/2018 Mr. Fernandez is seen this morning in the intensive care unit on his bedside. He is feeling better today and his blood pressure has improved. He denies any nausea or vomiting. He remains on one liter of oxygen via nasal cannula and denies any dyspnea or chest pain. He was admitted yesterday with hypotension and found to have bilateral pulmonary infiltrates and effusions. He also had right idex finger gangrene and suspicion was very high for sepsis. He also had elevated troponin of 1.54 which did come down to 0.99. In any event, today he is feeling much better and did eat well. He has been on intravenous antibiotics and received vancomycin and meropenem. Yesterday, he was also given one dose of Levaquin in the emergency room. PHYSICAL EXAMINATION: Temperature 97.2 degrees Fahrenheit, heart rate 110 per minute and respiratory rate 16 per minute. Blood pressure 95/64 mmHg and oxygen saturation 97%. His head is atraumatic. He has a hemodialysis catheter on left upper chest. Neck is supple and jugular venous distention (JVD) is mildly elevated. He is edentulous and without any thrush or ulcers. Heart sounds are irregular and tachycardiac. Lungs with diminished breath sounds at bases and bibasilar crackles. Abdomen is soft and nontender and without a palpable organomegaly. Bowel sounds are normal. Extremities have no cyanosis or clubbing. His left forearm arteriovenous (AV) fistula is partially thrombosed. He has remote bilateral [id number] amputations. Neurologically, he is at his baseline mentation. LABORATORY DATA: Today his sodium is 138 and potassium 3.9. BUN 27 and creatinine 5.64. His most recent troponin is down to 0.99 while CPK was only 36. Yesterday, his CPK was 46 and 41 respectively. His white cell count is 7.4, hemoglobin 9.1 and hematocrit 32.5. Platelets 129. Blood cultures are negative so far. PROBLEMS: 1. Hypotension, most likely related to sepsis. His blood pressure has improved after he received a couple of liters of normal saline. At this point, he does not need further IV fluid and this is about his baseline blood pressure. 2. End-stage renal disease. The patient received only partial hemodialysis yesterday as he was sent to the emergency room due to severe hypotension. There is no emergent indication for dialysis today and we will schedule his dialysis tomorrow. 3. Anemia. The patient does have history of rectal bleeding in the past and end-stage renal disease with recurrent anemia and required transfusions previously. At this point, there is no emergent need for a transfusion. We will monitor closely and treat him with Aranesp or transfuse as needed. 4. Hypokalemia. Yesterday, his potassium was slightly low but it has now improved and no intervention is indicated. 5. Sepsis. The patient remains on IV antibiotics with vancomycin and meropenem. His vancomycin level is 13.5. MTDD
[2018-10-19] VITALS (16 sets, daily range): BP systolic 57–83; BP diastolic 38–52
[2018-10-19 04:49] LABS: HEMATOCRIT 33.3 % (42.0-52.0); HEMOGLOBIN 9.5 g/dl (13.5-17.5); MEAN CORPUSCULAR HEMOGLOBIN 23.8 pg (27.0-33.0); MEAN CORPUSCULAR HGB CONC 28.5 g/dl (32.0-36.5); MEAN CORPUSCULAR VOLUME 83.5 fl (80.0-96.0); PLATELET COUNT, AUTOMATED 131 10^3/uL (150-450); RED BLOOD COUNT 3.99 10^6/uL (4.30-6.10)
--- NOTE | 2018-10-19 04:53 | ECGEPIP ---
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
[2018-10-19 05:09] LABS: CALCIUM LEVEL 8.5 MG/DL (8.8-10.2); CREATININE FOR GFR 6.4 MG/DL (0.70-1.30); GLOMERULAR FILTRATION RATE 11.2 (>42); MAGNESIUM LEVEL 1.7 MG/DL (1.8-2.4); POTASSIUM SERUM 3.4 MEQ/L (3.5-5.1)
[2018-10-19] MEDS: DOCUSATE SODIUM 100 MG CAP PO SCH ×2 (06:11→20:42)
[2018-10-19] MEDS: SENNA 8.6 MG TAB (SENOKOT) PO SCH (06:12)
[2018-10-19] MEDS: MIDODRINE 5 MG TAB PO SCH ×3 (06:35→15:59)
[2018-10-19] MEDS: ATORVASTATIN 20 MG TAB PO SCH (06:36)
[2018-10-19] MEDS: OMEPRAZOLE 20 MG CAP PO SCH (07:44)
[2018-10-19] MEDS: GABAPENTIN 300 MG CAP PO SCH ×3 (07:45→20:34)
[2018-10-19] MEDS: ASPIRIN 81 MG ENTERIC TAB PO SCH (07:45)
[2018-10-19] MEDS: DIGOXIN 0.125 MG TAB PO SCH (07:45)
[2018-10-19] MEDS: HumaLOG INSULIN (NovoLOG) PER UNIT SC SCH ×4 (07:46→20:42)
--- NOTE | 2018-10-19 10:32 | IPNPDOC ---
Subjective Date Seen The patient was seen on 10/19/18. Subjective Chief Complaint/HPI Patient seen and examined at bedside. He has remained afebrile, and his white blood cell count has been normal. He tells me that he is feeling better overall, and denies any acute complaints at this time. The patient's blood pressure has remained low, but this is his baseline. Objective Physical Examination General Exam: Positive: Alert, Cooperative, No Acute Distress ENT Exam: Positive: Atraumatic, Mucous membr. moist/pink Chest Exam: Positive: Diminished Heart Exam: Positive: Tachycardic, Irregular Rhythm, Normal S1, Normal S2 Telemetry: Positive: Atrial fibrillation Abdomen Exam: Positive: Soft; Negative: Tenderness Extremity Exam: Positive: Other (b/l lower extremity BKA ) Skin Exam: Positive: Other skin issue (Right index finger noted to have necrotic tissue with eschar formation) Assessment /Plan Plan/VTE VTE Prophylaxis Ordered?: Yes Plan Hypotension possibly 2/2 underlying HCAP vs Infected Right Index Finger CT Chest notable for B/L patchy opacities Right Index finger with eschar formation noted--follows with Dr. Connell as an outpatient, last seen in office on 09/20/18. I discussed the case with Dr. Langston who will see the patient in consult. Blood cultures unrevealing thus far Cont Vanco/Meropenem for now Cont to monitor in the ICU Lactic Acidosis 2/2 Above, resolved Elevated Troponin Level Troponin noted to be 1.5 in the ER, and this has subsequently downtrended EKG with non-specific changes Patient denies chest pain, palpitations Dr. Renner of Cardiology contacted in the ER, states that this is likely demand ischemia from hypotension from possible underlying infection--he recommends that there is no indication for transfer and cardiac cath at this time--Cont med management with ASA, Statin Paroxysmal A fib Cont Digoxin Not on AC 2/2 Hx of GI Bleed ESRD on HD Nephro on board Severe pulmonary hypertension with chronic right heart failure Fluid optimization through HD as per Nephro Moderate Calcific aortic stenosis with moderate aortic regurgitation Chronic hypotension Possibly due to ESRD and CHF status Cont midodrine (Baseline B/P 80s/50s) Peripheral vascular disease with bilateral below knee amputations Continue aspirin and statin. 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 The patient is a FULL CODE. VS, I&O, 24H, Fishbone Vital Signs/I&O Vital Signs Date Time Temp Pulse Resp B/P (MAP) Pulse Ox O2 Delivery O2 Flow Rate FiO2 10/19/18 08:00 98.6 115 20 64/40 (48) 96 10/19/18 04:00 Room Air 10/18/18 14:00 0.5 I&O- Last 24 Hours up to 6 AM 10/19/18 06:00 Intake Total 1190 ml Output Total 0 ml Balance 1190 ml Laboratory Data 24H LABS Laboratory Tests 2 10/18/18 11:51: Bedside Glucose (Misc Panel) 153H 10/18/18 16:17: Bedside Glucose (Misc Panel) 138H 10/18/18 20:55: Bedside Glucose (Misc Panel) 210H 10/19/18 04:38: Nucleated Red Blood Cells % (auto) 0.8H, Anion Gap 11, Glomerular Filtration Rate 11.2L, Blood Urea Nitrogen 34H, Creatinine 6.40H, Sodium Level 137, Potassium Level 3.4L, Chloride Level 101, Carbon Dioxide Level 25, Calcium Level 8.5L, Magnesium Level 1.7L CBC/BMP Laboratory Tests 10/19/18 04:38 Red Blood Count 3.99 L, Mean Corpuscular Volume 83.5, Mean Corpuscular Hemoglobin 23.8 L, Mean Corpuscular Hemoglobin Concent 28.5 L, Red Cell Distribution Width 20.5 H, Calcium Level 8.5 L Microbiology Microbiology 10/17/18 Blood Culture - Preliminary, Resulted No Growth after 48 hours. All Specime... 10/17/18 Blood Culture - Preliminary, Resulted No Growth after 48 hours. All Specime... 10/17/18 Respiratory Virus Panel (PCR) ([facility]) - Final, Complete CHAYITO RAMOS MD Oct 19, 2018 10:32
[2018-10-19] MEDS ORDERED: HEPARIN 1,000 UNITS/ML 10ML VIAL (FOR RADIOLOGY& DIALYSIS ONLY) XX ONE (13:30)
[2018-10-19] MEDS: MEROPENEM INJ 500 MG in APPROPRIATE DILUENT 1 EA IV SCH (15:06)
[2018-10-19] MEDS: **VANCO AFTER HD** MISC XX SCH (16:00)
[2018-10-19] MEDS: VANCOMYCIN HCL 750 MG, VIAL MATE ADAPTER 1 EACH in D5W 250 ML IV SCH (16:04)
--- NOTE | 2018-10-19 16:44 | IPN ---
DATE: 10/19/2018 Mr. Fernandez is seen during hemodialysis on his bedside in intensive care unit. He was admitted with hypotension and felt to have sepsis. His blood cultures have remained negative so far; however, blood pressure is slightly improved. He has not required pressors. He did receive a couple of liters of intravenous (IV) fluid on the day of admission, but now he has adequate oral intake and no evidence for dehydration. PHYSICAL EXAMINATION: Temperature 98.6 degrees Fahrenheit, heart rate 115 per minute, respiratory rate 20 per minute, blood pressure is about 74/50 mm of mercury, and oxygen saturation 98%. His head is atraumatic. He is edentulous and without any thrush or ulcers. He is a Perma-Cath in the left upper chest. Heart sounds are tachycardiac and irregular due to atrial fibrillation. Lungs with diminished breath sounds at bases. Abdomen soft and nontender. Bowel sounds are normal. Extremities have no cyanosis or clubbing. Left forearm arteriovenous (AV) fistula is not functioning very well, so it is not being used. The patient had bilateral [id number] amputations previously. Today's labs show WBC count 9.0, hemoglobin 9.5, hematocrit 33.3, platelets 131. Sodium 137, potassium 3.4, CO2 of 29, BUN 34, and creatinine 6.40. Calcium 8.5 and magnesium 1.7. PROBLEMS: 1. End-stage renal disease. The patient was only partially dialyzed on the day of admission. He is being dialyzed today and will complete his treatment. 2. Hypotension. His blood pressure remains chronically low, and we are unable to remove any fluid. He has not required pressors so far, and we will continue to monitor. 3. Hypokalemia. This is nutritional, and the patient will be dialyzed with 4.0 mEq potassium bath today, which will help to correct his hypokalemia. 4. Anemia. At this time his anemia is stable and does not need any urgent intervention. He has required transfusions in the past; however, at present there is no indication for a transfusion. 5. Right index finger gangrene. We looked at his finger, and it is still necrotic, but there is no purulent drainage. The patient has been on antibiotics for sepsis, and he is currently afebrile.
[2018-10-20] VITALS (8 sets, daily range): BP systolic 67–129; BP diastolic 37–89
[2018-10-20 05:10] LABS: HEMATOCRIT 32.6 % (42.0-52.0); HEMOGLOBIN 9.1 g/dl (13.5-17.5); MEAN CORPUSCULAR HEMOGLOBIN 23.6 pg (27.0-33.0); MEAN CORPUSCULAR HGB CONC 27.9 g/dl (32.0-36.5); MEAN CORPUSCULAR VOLUME 84.5 fl (80.0-96.0); PLATELET COUNT, AUTOMATED 132 10^3/uL (150-450); RED BLOOD COUNT 3.86 10^6/uL (4.30-6.10); WHITE BLOOD COUNT 7.8 10^3/uL (4.0-10.0)
[2018-10-20 05:26] LABS: CREATININE FOR GFR 5.07 MG/DL (0.70-1.30); GLOMERULAR FILTRATION RATE 14.6 (>42); MAGNESIUM LEVEL 1.8 MG/DL (1.8-2.4); POTASSIUM SERUM 3.8 MEQ/L (3.5-5.1)
[2018-10-20] MEDS: HumaLOG INSULIN (NovoLOG) PER UNIT SC SCH ×4 (07:30→21:00)
[2018-10-20] MEDS: OMEPRAZOLE 20 MG CAP PO SCH (08:34)
[2018-10-20] MEDS: GABAPENTIN 300 MG CAP PO SCH ×3 (08:34→21:50)
[2018-10-20] MEDS: ATORVASTATIN 20 MG TAB PO SCH (08:34)
[2018-10-20] MEDS: ASPIRIN 81 MG ENTERIC TAB PO SCH (08:34)
[2018-10-20] MEDS: MIDODRINE 5 MG TAB PO SCH ×3 (08:34→15:10)
[2018-10-20] MEDS: DOCUSATE SODIUM 100 MG CAP PO SCH ×2 (08:36→21:50)
[2018-10-20] MEDS: SENNA 8.6 MG TAB (SENOKOT) PO SCH (09:00)
--- NOTE | 2018-10-20 11:18 | IPNPDOC ---
Subjective Date Seen The patient was seen on 10/20/18. Subjective Chief Complaint/HPI Patient seen and examined at the bedside. He remains afebrile, with a normal white blood cell count. His blood pressure has remained at his baseline levels. Awaiting vascular surgery evaluation of necrotic index finger. Dialysis as per nephrology. Objective Physical Examination General Exam: Positive: Alert, Cooperative, No Acute Distress ENT Exam: Positive: Atraumatic, Mucous membr. moist/pink Chest Exam: Positive: Diminished Heart Exam: Positive: Tachycardic, Irregular Rhythm, Normal S1, Normal S2 Telemetry: Positive: Atrial fibrillation Abdomen Exam: Positive: Soft; Negative: Tenderness Extremity Exam: Positive: Other (b/l lower extremity BKA ) Skin Exam: Positive: Other skin issue (Right index finger noted to have necrotic tissue with eschar formation) Assessment /Plan Plan/VTE VTE Prophylaxis Ordered?: Yes Plan Hypotension possibly 2/2 underlying HCAP vs Infected Right Index Finger CT Chest notable for B/L patchy opacities Right Index finger with eschar formation noted--follows with Dr. Connell as an outpatient, last seen in office on 09/20/18. I discussed the case with Dr. Langston who will see the patient in consult. Blood cultures unrevealing thus far Cont Vanco/Meropenem for now Cont to monitor in the ICU Lactic Acidosis 2/2 Above, resolved Elevated Troponin Level Troponin noted to be 1.5 in the ER, and this has subsequently downtrended EKG with non-specific changes Patient denies chest pain, palpitations Dr. Renner of Cardiology contacted in the ER, states that this is likely demand ischemia from hypotension from possible underlying infection--he recommends that there is no indication for transfer and cardiac cath at this time--Cont med management with ASA, Statin Paroxysmal A fib Cont Digoxin Not on AC 2/2 Hx of GI Bleed ESRD on HD Nephro on board Severe pulmonary hypertension with chronic right heart failure Fluid optimization through HD as per Nephro Moderate Calcific aortic stenosis with moderate aortic regurgitation Chronic hypotension Possibly due to ESRD and CHF status Cont midodrine (Baseline B/P 80s/50s) Peripheral vascular disease with bilateral below knee amputations Continue aspirin and statin. 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 The patient is a FULL CODE. VS, I&O, 24H, Fishbone Vital Signs/I&O Vital Signs Date Time Temp Pulse Resp B/P (MAP) Pulse Ox O2 Delivery O2 Flow Rate FiO2 10/20/18 04:00 97.6 107 18 105/72 (83) 96 Room Air 10/18/18 14:00 0.5 I&O- Last 24 Hours up to 6 AM 10/20/18 06:00 Intake Total 1145 ml Output Total 400 ml Balance 745 ml Laboratory Data 24H LABS Laboratory Tests 2 10/19/18 11:55: Bedside Glucose (Misc Panel) 93 10/19/18 16:48: Bedside Glucose (Misc Panel) 172H 10/19/18 20:41: Bedside Glucose (Misc Panel) 115H 10/20/18 04:47: Nucleated Red Blood Cells % (auto) 0.9H, Anion Gap 9, Glomerular Filtration Rate 14.6L, Blood Urea Nitrogen 20H, Creatinine 5.07H, Sodium Level 138, Potassium Level 3.8, Chloride Level 102, Carbon Dioxide Level 27, Calcium Level 8.0L, Magnesium Level 1.8 CBC/BMP Laboratory Tests 10/20/18 04:47 Red Blood Count 3.86 L, Mean Corpuscular Volume 84.5, Mean Corpuscular Hemoglobin 23.6 L, Mean Corpuscular Hemoglobin Concent 27.9 L, Red Cell Distribution Width 20.7 H, Calcium Level 8.0 L Microbiology Microbiology 10/17/18 Blood Culture - Preliminary, Resulted No Growth after 72 hours. All specime... 10/17/18 Blood Culture - Preliminary, Resulted No Growth after 72 hours. All specime... 10/17/18 Respiratory Virus Panel (PCR) ([facility]) - Final, Complete CHAYITO RAMOS MD Oct 20, 2018 11:18
--- NOTE | 2018-10-20 14:27 | IPN ---
DATE: 10/20/2018 Mr. Fernandez is seen this morning on his bedside in intensive care unit. He is feeling well and complains of pain in his right index finger. He denies any nausea, vomiting, dyspnea or chest pain. He underwent hemodialysis yesterday, which he tolerated very well. His blood pressure has been chronically low and remains in about 70s most of the time. This morning's blood pressure is recorded as 105/72 mmHg while most recent one is down to 70/40 mmHg. His temperature is 97 degrees Fahrenheit, heart rate 100 per minute and respiratory rate 18 per minute. Oxygen saturation is 96% on room air. PHYSICAL EXAMINATION: Neck veins are mildly distended. He is edentulous and without any oral thrush or ulcers. His heart sounds are tachycardiac and irregular in rhythm. Lungs have diminished breath sounds at bases bilaterally. Abdomen is soft and nontender and bowel sounds are normal. Extremities have no cyanosis or clubbing. Right index finger is gangrenous and is draped in dressing. He has bilateral lower extremity amputations. Neurologically, he is at his baseline mentation without a focal neurological deficit. His blood cultures remain negative so far and other labs reveal a WBC count of 7.8, hemoglobin 9.1 and hematocrit 32.6. Platelets are 132. Sodium 138, potassium 3.8, CO2 27, BUN 20 and creatinine 5.07. Glucose 94 and calcium 8.0. PROBLEMS: 1. End-stage renal disease. The patient was dialyzed yesterday and we will plan to dialyze him again tomorrow. At present, there is no emergent indication for dialysis today. 2. Hypotension. This is a chronic issue and blood pressure is just about the baseline. I do not feel that he needs any pressors or IV fluids at this point. We will continue to monitor and have already started midodrine 5 mg three times a day. It remains to be seen how his blood pressure goes when we dialyze him tomorrow. 3. Bilateral pneumonia and pleural effusions. We were unable to remove much fluid due to low blood pressure yesterday and we will give it a try again tomorrow when we dialyze him. The patient remains on intravenous meropenem and vancomycin. 3. Atrial fibrillation with rapid ventricular rate. The patient remains on digoxin 125 mcg every other day. His ventricular rate is moderately controlled. 4. Gangrenous right index finger. Dr. Langston has been consulted and we are waiting for his input if the patient will need amputation of his finger.
[2018-10-20] MEDS: MEROPENEM INJ 500 MG in APPROPRIATE DILUENT 1 EA IV SCH (15:10)
[2018-10-20] MEDS: **VANCO AFTER HD** MISC XX SCH (15:35)
[2018-10-21] VITALS (10 sets, daily range): BP systolic 72–85; BP diastolic 39–52
[2018-10-21 05:03] LABS: HEMATOCRIT 32.3 % (42.0-52.0); MEAN CORPUSCULAR HEMOGLOBIN 23.3 pg (27.0-33.0); MEAN CORPUSCULAR HGB CONC 27.9 g/dl (32.0-36.5); MEAN CORPUSCULAR VOLUME 83.5 fl (80.0-96.0); PLATELET COUNT, AUTOMATED 106 10^3/uL (150-450); RED BLOOD COUNT 3.87 10^6/uL (4.30-6.10); WHITE BLOOD COUNT 7.5 10^3/uL (4.0-10.0)
[2018-10-21 05:17] LABS: CALCIUM LEVEL 8.2 MG/DL (8.8-10.2); CREATININE FOR GFR 5.99 MG/DL (0.70-1.30); GLOMERULAR FILTRATION RATE 12.1 (>42); MAGNESIUM LEVEL 1.8 MG/DL (1.8-2.4); POTASSIUM SERUM 3.6 MEQ/L (3.5-5.1)
[2018-10-21] MEDS: HumaLOG INSULIN (NovoLOG) PER UNIT SC SCH ×4 (08:17→21:00)
[2018-10-21] MEDS: SENNA 8.6 MG TAB (SENOKOT) PO SCH (08:17)
[2018-10-21] MEDS: MIDODRINE 5 MG TAB PO SCH ×3 (08:17→16:13)
[2018-10-21] MEDS: GABAPENTIN 300 MG CAP PO SCH ×3 (08:18→21:15)
[2018-10-21] MEDS: DOCUSATE SODIUM 100 MG CAP PO SCH ×2 (08:18→21:15)
[2018-10-21] MEDS: ATORVASTATIN 20 MG TAB PO SCH (08:18)
[2018-10-21] MEDS: ASPIRIN 81 MG ENTERIC TAB PO SCH (08:18)
[2018-10-21] MEDS: DIGOXIN 0.125 MG TAB PO SCH (08:18)
[2018-10-21] MEDS: OMEPRAZOLE 20 MG CAP PO SCH (08:18)
[2018-10-21] MEDS ORDERED: DARBEPOETIN 100 MCG/0.5 ML *DIALYSIS* SYRINGE (J0882) IV SCH (11:15)
[2018-10-21] MEDS: IPRATROPIUM 0.5MG/ALBUTEROL 2.5MG INH SOL UD 3ML (DUONEB)(J7620) NEB SCH ×3 (11:17→23:54)
--- NOTE | 2018-10-21 11:39 | IPN ---
DATE: 10/21/2018 Mr. Fernandez is seen this morning during hemodialysis on his bedside in intensive care unit. He has cough with some briones sputum production. There is no hemoptysis and he denies any pleuritic type of chest pain. His blood pressure remains low in 70s which is chronic issue. He denies any nausea or vomiting. PHYSICAL EXAMINATION Temperature 98.4 degrees Fahrenheit, heart rate about 96 per minute and respiratory rate 20 per minute. Blood pressure right now is about 77/56 mmHg and oxygen saturation is 94% on room air. His head is atraumatic. Face is slightly edematous today and there is no oral thrush or ulcers. Neck is supple and JVD is slightly higher about 9 cm above sternal angle. Lungs: Have diminished breath sounds and bibasilar rales. Heart: Sounds are irregular and less tachycardiac today. Abdomen is soft and nontender and bowel sounds are normal. Extremities have no cyanosis or clubbing. Right index finger is wrapped in dressing where he has gangrenous changes. Bilateral lower extremity amputations are old. Neurologically he is awake, alert and at his baseline mentation. Today's labs show WBC count 7.5, hemoglobin 9.0 and hematocrit 32.3. Platelets are 106,000. Sodium 135, potassium 3.6, chloride 100, CO2 26, BUN 25 and creatinine 5.99. Glucose 125 and calcium 8.2. PROBLEMS: 1. Sepsis. The patient had low blood pressure on admission which did improve with IV fluid and has remained in 70s now. He has bilateral infiltrates on the chest CT scan and also has infected right index finger with gangrenous changes. At present he remains on intravenous vancomycin and meropenem. He is currently afebrile and without leukocytosis. I have discussed with Dr. Garcia and suggested to repeat his CT scan. 2. Congestive heart failure. The patient did receive at least 2 liters of IV normal saline on the day of admission due to hypotension. His blood pressure has been low and we have not been able to remove much fluid with dialysis. His oral intake is reasonable and he seems to be mildly volume overloaded now. We will try to remove 1.5 liters of fluid today with dialysis as tolerated and get a chest x-ray after dialysis today. Depending upon his response to dialysis treatment and fluid removal today and findings of chest x-ray we will consider an extra ultrafiltration tomorrow if needed. 3. End-stage renal disease. The patient is currently being dialyzed this and he will complete his dialysis treatment. His dialysis catheter is functioning well and AV fistula is not being used due to partial thrombosis. At some later time we will get his AV fistula declotted. 4. Hypotension. This is a chronic issue and the patient remains on midodrine 5 mg three times a day. We will continue with the same. 5. Anemia. Anemia is stable and there is no urgent indication for a transfusion. The patient receives Mircera during outpatient dialysis. We have not given him Aranesp so far. Will consider to give him Aranesp if needed next week. 6. Atrial fibrillation. His ventricular rate is reasonably well-controlled with digoxin 125 mcg every other day and he is not on any beta ross or calcium channel ross at present. He is not a suitable candidate for anticoagulation due to recurrent rectal bleeding.
--- NOTE | 2018-10-21 13:55 | REP ---
Portable chest x-ray: Single view. History: Shortness of breath and cough. Comparison chest x-ray: October 17, 2018. Findings: A left-sided tunnel catheter is seen as before. EKG electrodes are noted. There is some pleural thickening along the lateral chest wall and blunting of the pleural angle on the right similar to the previous study. Peripheral right lung opacity is seen, improved from the prior exam. There are some increased markings in the left base as well also a little less prominent than on the prior chest x-ray. Cardiomegaly is again observed unchanged. No new infiltrate is seen. Impression: Cardiomegaly and left base and right mid lung zone infiltrate somewhat improved. No new infiltrate. Pleural thickening and blunting again noted on the right. Electronically Signed by Jorge Perea MD 10/21/2018 04:55 P
[2018-10-21] MEDS: MEROPENEM INJ 500 MG in APPROPRIATE DILUENT 1 EA IV SCH (14:53)
--- NOTE | 2018-10-21 14:55 | IPNPDOC ---
Subjective Date Seen The patient was seen on 10/21/18. Subjective Chief Complaint/HPI Patient seen and examined at the bedside. He appears to be a bit more short of breath this morning. He is scheduled to be dialyzed today, and hopefully he will be able to tolerate some fluid removal given that his blood pressure has been running low and is chronically so. Objective Physical Examination General Exam: Positive: Alert, Cooperative, No Acute Distress ENT Exam: Positive: Atraumatic, Mucous membr. moist/pink Chest Exam: Positive: Wheezing, Diminished Heart Exam: Positive: Tachycardic, Irregular Rhythm, Normal S1, Normal S2 Telemetry: Positive: Atrial fibrillation Abdomen Exam: Positive: Soft; Negative: Tenderness Extremity Exam: Positive: Other (b/l lower extremity BKA ) Skin Exam: Positive: Other skin issue (Right index finger noted to have necrotic tissue with eschar formation) Assessment /Plan Plan/VTE VTE Prophylaxis Ordered?: Yes Plan Hypotension possibly 2/2 underlying HCAP vs Infected Right Index Finger CT Chest notable for B/L patchy opacities on admission, we will repeat a CT Chest on 10/24 to follow up on progression of opacities Right Index finger with eschar formation noted--follows with Dr. Connell as an outpatient, last seen in office on 09/20/18. I discussed the case with Dr. Langston who will see the patient in consult. Blood cultures unrevealing thus far Cont Vanco/Meropenem for now Cont to monitor in the ICU Lactic Acidosis 2/2 Above, resolved Elevated Troponin Level Troponin noted to be 1.5 in the ER, and this has subsequently downtrended EKG with non-specific changes Patient denies chest pain, palpitations Dr. Renner of Cardiology contacted in the ER, states that this is likely demand ischemia from hypotension from possible underlying infection--he recommends that there is no indication for transfer and cardiac cath at this time--Cont med management with ASA, Statin Paroxysmal A fib Cont Digoxin Not on AC 2/2 Hx of GI Bleed ESRD on HD Nephro on board Severe pulmonary hypertension with chronic right heart failure Fluid optimization through HD as per Nephro Moderate Calcific aortic stenosis with moderate aortic regurgitation Chronic hypotension Possibly due to ESRD and CHF status Cont midodrine (Baseline B/P 80s/50s) Peripheral vascular disease with bilateral below knee amputations Continue aspirin and statin. 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 Hx of Prostate Ca Deep vein thrombosis (DVT) prophylaxis Arixtra SC contraindicated as the patient had some bleeding on last admission while on this medication (Hx of SELAM in 2016) We will hold off on any prophylactic AC due to bleeding history Patient cannot have ESPERANZA/SCDs due to B/L BKAs Increased risk of clot formation discussed with patient, --they have verbalized understanding of the same Condition: Guarded Poor Retirement Prognosis VS, I&O, 24H, Fishbone Vital Signs/I&O Vital Signs Date Time Temp Pulse Resp B/P (MAP) Pulse Ox O2 Delivery O2 Flow Rate FiO2 10/21/18 08:18 92 10/21/18 04:00 98.4 20 73/45 (54) 94 Room Air 10/18/18 14:00 0.5 I&O- Last 24 Hours up to 6 AM 10/21/18 06:00 Intake Total 1540 ml Balance 1540 ml Laboratory Data 24H LABS Laboratory Tests 2 10/20/18 17:12: Bedside Glucose (Misc Panel) 163H 10/20/18 21:52: Bedside Glucose (Misc Panel) 144H 10/21/18 04:45: Nucleated Red Blood Cells % (auto) 0.3H, Anion Gap 9, Glomerular Filtration Rate 12.1L, Blood Urea Nitrogen 25H, Creatinine 5.99H, Sodium Level 135L, Potassium Level 3.6, Chloride Level 100, Carbon Dioxide Level 26, Calcium Level 8.2L, Magnesium Level 1.8 10/21/18 12:57: Bedside Glucose (Misc Panel) 116H CBC/BMP Laboratory Tests 10/21/18 04:45 Red Blood Count 3.87 L, Mean Corpuscular Volume 83.5, Mean Corpuscular Hemoglobin 23.3 L, Mean Corpuscular Hemoglobin Concent 27.9 L, Red Cell Di stribution Width 20.8 H, Calcium Level 8.2 L Microbiology Microbiology 10/17/18 Blood Culture - Preliminary, Resulted No Growth after 72 hours. All specime... 10/17/18 Blood Culture - Preliminary, Resulted No Growth after 72 hours. All specime... 10/17/18 Respiratory Virus Panel (PCR) ([facility]) - Final, Complete CHAYITO RAMOS MD Oct 21, 2018 14:55
[2018-10-21] MEDS: **VANCO AFTER HD** MISC XX SCH (16:00)
[2018-10-21] MEDS: VANCOMYCIN HCL 750 MG, VIAL MATE ADAPTER 1 EACH in D5W 250 ML IV SCH (16:13)
[2018-10-22] VITALS (7 sets, daily range): BP systolic 74–96; BP diastolic 42–55
[2018-10-22 05:50] LABS: HEMATOCRIT 31.7 % (42.0-52.0); HEMOGLOBIN 8.8 g/dl (13.5-17.5); MEAN CORPUSCULAR HEMOGLOBIN 23.4 pg (27.0-33.0); MEAN CORPUSCULAR HGB CONC 27.8 g/dl (32.0-36.5); MEAN CORPUSCULAR VOLUME 84.3 fl (80.0-96.0); RED BLOOD COUNT 3.76 10^6/uL (4.30-6.10)
[2018-10-22 06:07] LABS: PLATELET COUNT, AUTOMATED 91 10^3/uL (150-450)
[2018-10-22 06:08] LABS: CREATININE FOR GFR 4.42 MG/DL (0.70-1.30); GLOMERULAR FILTRATION RATE 17.2 (>42); MAGNESIUM LEVEL 1.7 MG/DL (1.8-2.4); POTASSIUM SERUM 3.7 MEQ/L (3.5-5.1)
[2018-10-22] MEDS ORDERED: MAG SULF 1GM/100ML (MAG RUN) 1 GM in APPROPRIATE DILUENT 1 EA IV ONE (07:00)
[2018-10-22] MEDS: IPRATROPIUM 0.5MG/ALBUTEROL 2.5MG INH SOL UD 3ML (DUONEB)(J7620) NEB SCH ×2 (07:31→15:07)
[2018-10-22] MEDS: MIDODRINE 5 MG TAB PO SCH ×3 (08:11→17:14)
[2018-10-22] MEDS: DOCUSATE SODIUM 100 MG CAP PO SCH ×2 (08:11→21:42)
[2018-10-22] MEDS: GABAPENTIN 300 MG CAP PO SCH ×3 (08:11→21:42)
[2018-10-22] MEDS: ATORVASTATIN 20 MG TAB PO SCH (08:11)
[2018-10-22] MEDS: OMEPRAZOLE 20 MG CAP PO SCH (08:11)
[2018-10-22] MEDS: ASPIRIN 81 MG ENTERIC TAB PO SCH (08:11)
[2018-10-22] MEDS: HumaLOG INSULIN (NovoLOG) PER UNIT SC SCH ×4 (08:12→21:00)
[2018-10-22] MEDS: SENNA 8.6 MG TAB (SENOKOT) PO SCH (08:29)
--- NOTE | 2018-10-22 12:25 | IPNPDOC ---
Subjective Date Seen The patient was seen on 10/22/18. Subjective Chief Complaint/HPI Patient seen and examined at bedside. No overnight events noted. F/U CXR yesterday revealed improvement. Objective Physical Examination General Exam: Positive: Alert, Cooperative, No Acute Distress ENT Exam: Positive: Atraumatic, Mucous membr. moist/pink Chest Exam: Positive: Diminished Heart Exam: Positive: Tachycardic, Irregular Rhythm, Normal S1, Normal S2 Telemetry: Positive: Atrial fibrillation Abdomen Exam: Positive: Soft; Negative: Tenderness Extremity Exam: Positive: Other (b/l lower extremity BKA ) Skin Exam: Positive: Other skin issue (Right index finger noted to have necrotic tissue with eschar formation) Assessment /Plan Plan/VTE VTE Prophylaxis Ordered?: Yes Plan Hypotension possibly 2/2 underlying HCAP vs Infected Right Index Finger CT Chest notable for B/L patchy opacities on admission, we will repeat a CT Chest on 10/24 to follow up on progression of opacities Right Index finger with eschar formation noted--follows with Dr. Connell as an outpatient, last seen in office on 09/20/18. I discussed the case with Dr. Langston who will see the patient in consult. Blood cultures unrevealing thus far Cont Vanco/Meropenem for now Cont to monitor in the ICU Lactic Acidosis 2/2 Above, resolved Elevated Troponin Level Troponin noted to be 1.5 in the ER, and this has subsequently downtrended EKG with non-specific changes Patient denies chest pain, palpitations Dr. Renner of Cardiology contacted in the ER, states that this is likely demand ischemia from hypotension from possible underlying infection--he recommends that there is no indication for transfer and cardiac cath at this time--Cont med management with ASA, Statin Paroxysmal A fib Cont Digoxin Not on AC 2/2 Hx of GI Bleed ESRD on HD Nephro on board Severe pulmonary hypertension with chronic right heart failure Fluid optimization through HD as per Nephro Moderate Calcific aortic stenosis with moderate aortic regurgitation Chronic hypotension Possibly due to ESRD and CHF status Cont midodrine (Baseline B/P 80s/50s) Peripheral vascular disease with bilateral below knee amputations Continue aspirin and statin. 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 VS, I&O, 24H, Fishbone Vital Signs/I&O Vital Signs Date Time Temp Pulse Resp B/P (MAP) Pulse Ox O2 Delivery O2 Flow Rate FiO2 10/22/18 08:00 98.6 122 20 80/43 (55) 96 Room Air 10/18/18 14:00 0.5 I&O- Last 24 Hours up to 6 AM 10/22/18 05:59 Intake Total 1525 ml Output Total 1500 ml Balance 25 ml Laboratory Data 24H LABS Laboratory Tests 2 10/21/18 12:57: Bedside Glucose (Misc Panel) 116H 10/21/18 17:21: Bedside Glucose (Misc Panel) 206H 10/21/18 21:13: Bedside Glucose (Misc Panel) 158H 10/22/18 05:15: Nucleated Red Blood Cells % (auto) 0.3H, Immature Platelet Fraction 7.6, Anion Gap 9, Glomerular Filtration Rate 17.2L, Blood Urea Nitrogen 16, Creatinine 4.42H, Sodium Level 136, Potassium Level 3.7, Chloride Level 101, Carbon Dioxide Level 26, Calcium Level 8.0L, Magnesium Level 1.7L, Digoxin Level 1.0 10/22/18 11:39: Bedside Glucose (Misc Panel) 107 CBC/BMP Laboratory Tests 10/22/18 05:15 Red Blood Count 3.76 L, Mean Corpuscular Volume 84.3, Mean Corpuscular Hemoglobin 23.4 L, Mean Corpuscular Hemoglobin Concent 27.8 L, Red Cell Distribution Width 20.6 H, Calcium Level 8.0 L Microbiology Microbiology 10/17/18 Blood Culture - Final, Complete NO GROWTH AFTER 5 DAYS 10/17/18 Blood Culture - Final, Complete NO GROWTH AFTER 5 DAYS 10/17/18 Respiratory Virus Panel (PCR) (SARAH) - Final, Complete CHAYITO RAMSO MD Oct 22, 2018 12:25
[2018-10-22] MEDS ORDERED: HEPARIN 1,000 UNITS/ML 10ML VIAL (FOR RADIOLOGY& DIALYSIS ONLY) XX ONE (13:00)
--- NOTE | 2018-10-22 13:05 | IPN ---
DATE: 10/22/2018 My attending on this case is Dr. Tej Jean-Baptiste. Mr. Fernandez was seen and examined this morning in his bed. He states to be doing relatively well. He does complain of having some achy soreness pain in his R index finger, which has been consistent since his admission. He continues to have just some sputum production with his cough but denies any pleuritic or shortness of breath or chest pain. His blood pressure overnight has been maintaining a mean arterial pressure (MAP) in the 50s with systolic in the high 70s, 80s. He denies having any nausea or vomiting. He is having regular bowel movements and has a good appetite. He is eating all his meals. PHYSICAL EXAMINATION: Vital Signs: Temperature 98.6, pulse 122, respirations 20, blood pressure 80/43 (55), pulse oximetry 96% on room air. General: This is a very pleasant 68-year-old male who does not appear in acute distress, resting comfortably on his hospital bed, appropriately answering questions, slightly soft spoken but with no slurring of speech. HEENT: Atraumatic, normocephalic. Face is not as edematous as yesterday. No mucous lesions noted. Neck is supple. There is some jugular venous distention (JVD) present. Heart: Irregular rhythm, regular rate. Lungs: Slightly diminished breath sounds with bibasilar rales. Abdomen: Soft, nontender, positive bowel sounds in all four quadrants. Obese abdomen. Nonedematous. Extremities: Right index finger is wrapped in a dressing. No purulent discharges. Bilateral lower extremities with amputations Neurologic: He is awake, alert, oriented, at baseline mentation. LABORATORY: Hematology: WBC 7.0, hemoglobin 8.8, hematocrit of 31.7, platelets of 91. Chemistries: Electrolytes are within normal limits. BUN and creatinine ratio is 16 over 4.42, fasting glucose of 105, calcium of 8.0, magnesium of 1.7. IMAGING: Repeat chest x-ray on 09/21/2018 - cardiomegaly with left base and right mid lung zone infiltrate, somewhat improved. No new infiltrates. Pleural thickening and blunting noted in the right. PROBLEMS: Congestive heart failure exacerbation. Today, we will do an extra ultrafiltration to remove extra fluid. Continues on midodrine for chronic hypotension. Albumin and cool dialysate can also be used for further fluid removal with HD. 3. History of end-stage renal disease. Will continue with his Wednesday, Wednesday, Wednesday dialysis and will get extra ultrafiltration today. His arteriovenous (AV) fistula has not been used because of a partial thrombosis. We will need to discuss with Dr. Langston about getting his AV fistula declotted in the future. 4. History of hypotension. This is a chronic issue for the patient and will continue with midodrine 10 mg three times a day. 5. History of anemia. Currently stable. There is no indication for transfusion. He is getting ultrafiltration today and today will get Aranesp. He does receive Mircera during outpatient dialysis. 6. Atrial fibrillation. Throughout the evening, his ventricular rate is reasonably controlled with digoxin 125 mcg every other day. He is not suitable for beta blockers or calcium channel blockers due to hypotension. He is not a candidate for anticoagulation because of recurrent rectal bleeding. My faculty preceptor for this patient encounter was physically present during the encounter and was fully available. All aspects of the patient interview, examination, medical decision making process, and medical care plan development were reviewed and approved by the faculty preceptor. The faculty preceptor is aware and concurs with the plan as stated in the body of this note and will attest to such by his/her cosignature. MARIA ALEJANDRA
[2018-10-22 16:29] LABS: VANCOMYCIN RANDOM 19.5 UG/ML
[2018-10-22] MEDS: MEROPENEM INJ 500 MG in APPROPRIATE DILUENT 1 EA IV SCH (17:14)
--- NOTE | 2018-10-22 17:19 | PHACANCOPD ---
PHARMACY VANCOMYCIN DOSING Pt Demographics Demographics Patient Age:68 , Weight:93.300 , Gender: male Adjusted Body Weight Date: 10/17/18, Adjusted Body Weight: Kg Vancomycin Vancomycin indication: SEPSIS Vancomycin Target Ranges: 10-20 mcg/ml Vancomycin Load Y/N: No Load Dose Date Time Vancomycin Load Dose: Date: Time: Vancomycin Dose Date: 10/17/18. Current Vancomycin Dose: [750MG IV HD] Intermittent Dosing?: Yes Labs Micro Microbiology 10/17/18 Blood Culture - Final, Complete NO GROWTH AFTER 5 DAYS 10/17/18 Blood Culture - Final, Complete NO GROWTH AFTER 5 DAYS 10/17/18 Respiratory Virus Panel (PCR) (SARAH) - Final, Complete Creatinine Clearance Date:10/17/18. Est Creatinine Clearance: [~17ml/min]. Pending Labs Vancomycin random level scheduled 10/18/18 @0500 Assessment and Plan Maintaining Current Dose?: Yes Reason for dose change: No Dose Change Pharmacist Note Pharmacist Note 10/22/18: A random vancomycin level was scheduled with this morning's labs given patient planned for ultrafiltration today, and the patient was dialyzed yesterday. Random level this morning resulted therapeutic at 19.5mcg/ml. Scr is stable at 4.42 today from 5.99 yesterday pre-dialysis. We will continue the patient on his current regimen of 750mg given after HD. A follow-up random level has been scheduled to be drawn Wednesday with AM labs, given the patient's dialysis schedule is ,,. We will continue to monitor and make dose adjustments if needed. Date: 10/17/18. Pharmacist note: Day #1 empiric vancomycin tx initiated with a 1g dose given today, followed by post-dialysis dosing based on random levels for the treatment of sepsis - aiming for a goal trough of 10-20mcg/ml. The patient was recently here from 09/22/18 - 10/11/18 with MSSA pneumonia with parapneumonic effusion with bacteremia (SARAH<0.5), and is now presenting today with sepsis. He is s/p 16 days of IV abx from last admission (finished with IV ancef.) He was hypotensive on admit with an elevated lactic acid, elevated CRP, elevated pulse, WBC WNL, RR WNL, pulse ox WNL on room air, and afebrile. Chest CT today revealed "small bilateral pleural effusions, new on the left and smaller on the right than on September 22, 2018. There is some loculated air in the right pleural space post recent instrumentation. Patchy bilateral opacities mostly in the lower lobes and the right upper lobe." Blood cultures are pending. The patient receives hemodialysis on a normal schedule of M,W,F, and was dialyzed earlier today but only completed an hour. A random level has been scheduled to be drawn tomorrow, 10/18/18, @0500. We will continue to monitor and adjust dosi ng accordingly. DAVINA [facility] Oct 22, 2018 17:19
[2018-10-22] MEDS: **VANCO AFTER HD** MISC XX SCH (18:00)
[2018-10-22] MEDS: VANCOMYCIN HCL 750 MG, VIAL MATE ADAPTER 1 EACH in D5W 250 ML IV SCH (18:11)
[2018-10-23 04:00] VITALS: BP 81/48
[2018-10-23 04:40] LABS: HEMATOCRIT 33.5 % (42.0-52.0); HEMOGLOBIN 9.3 g/dl (13.5-17.5); MEAN CORPUSCULAR HEMOGLOBIN 23.3 pg (27.0-33.0); MEAN CORPUSCULAR HGB CONC 27.8 g/dl (32.0-36.5); RED BLOOD COUNT 3.99 10^6/uL (4.30-6.10); WHITE BLOOD COUNT 7.9 10^3/uL (4.0-10.0)
[2018-10-23 04:44] LABS: PLATELET COUNT, AUTOMATED 90 10^3/uL (150-450)
[2018-10-23 05:01] LABS: CALCIUM LEVEL 7.9 MG/DL (8.8-10.2); CREATININE FOR GFR 5.37 MG/DL (0.70-1.30); GLOMERULAR FILTRATION RATE 13.7 (>42); MAGNESIUM LEVEL 1.9 MG/DL (1.8-2.4); POTASSIUM SERUM 3.9 MEQ/L (3.5-5.1)
[2018-10-23] MEDS: IPRATROPIUM 0.5MG/ALBUTEROL 2.5MG INH SOL UD 3ML (DUONEB)(J7620) NEB SCH ×3 (07:03→15:04)
[2018-10-23 08:00] VITALS: BP 81/45
[2018-10-23] MEDS: ASPIRIN 81 MG ENTERIC TAB PO SCH (08:47)
[2018-10-23] MEDS: GABAPENTIN 300 MG CAP PO SCH ×3 (08:47→20:52)
[2018-10-23] MEDS: ATORVASTATIN 20 MG TAB PO SCH (08:47)
[2018-10-23] MEDS: OMEPRAZOLE 20 MG CAP PO SCH (08:47)
[2018-10-23] MEDS: HumaLOG INSULIN (NovoLOG) PER UNIT SC SCH ×4 (08:47→20:31)
[2018-10-23] MEDS: DOCUSATE SODIUM 100 MG CAP PO SCH ×2 (08:48→20:52)
[2018-10-23] MEDS: SENNA 8.6 MG TAB (SENOKOT) PO SCH (08:48)
[2018-10-23] MEDS: MIDODRINE 5 MG TAB PO SCH ×3 (08:48→15:11)
[2018-10-23] MEDS: DIGOXIN 0.125 MG TAB PO SCH (08:48)
[2018-10-23] MEDS: POLYVINYL ALCOHOL OPHTH SOLN 15 ML(LIQUITEARS) OU PRN (11:58)
[2018-10-23 12:00] VITALS: BP 92/59
--- NOTE | 2018-10-23 14:41 | IPNPDOC ---
Subjective Date Seen The patient was seen on 10/23/18. Subjective Chief Complaint/HPI Patient seen and examined at the bedside. Denies any acute complaints. Reports that Dr. Langston came to see his right index finger yesterday, and he was told that there was no surgical intervention indicated at this time. Objective Physical Examination General Exam: Positive: Alert, Cooperative, No Acute Distress ENT Exam: Positive: Atraumatic, Mucous membr. moist/pink Chest Exam: Positive: Diminished Heart Exam: Positive: Tachycardic, Irregular Rhythm, Normal S1, Normal S2 Telemetry: Positive: Atrial fibrillation Abdomen Exam: Positive: Soft; Negative: Tenderness Extremity Exam: Positive: Other (b/l lower extremity BKA ) Skin Exam: Positive: Other skin issue (Right index finger noted to have necrotic tissue with eschar formation) Assessment /Plan Plan/VTE VTE Prophylaxis Ordered?: Yes Plan Hypotension possibly 2/2 underlying HCAP vs Infected Right Index Finger CT Chest notable for B/L patchy opacities on admission, we will repeat a CT Chest tomorrow to follow up on progression of opacities Right Index finger with eschar formation noted-- Dr. Langston on board; no indication for surgical intervention Blood cultures unrevealing thus far Cont Vanco/Meropenem for now Cont to monitor in the ICU Lactic Acidosis 2/2 Above, resolved Elevated Troponin Level Troponin noted to be 1.5 in the ER, and this has subsequently downtrended EKG with non-specific changes Patient denies chest pain, palpitations Dr. Renner of Cardiology contacted in the ER, states that this is likely demand ischemia from hypotension from possible underlying infection--he recommends that there is no indication for transfer and cardiac cath at this time--Cont med management with ASA, Statin Paroxysmal A fib Cont Digoxin Not on AC 2/2 Hx of GI Bleed ESRD on HD Nephro on board Severe pulmonary hypertension with chronic right heart failure Fluid optimization through HD as per Nephro Moderate Calcific aortic stenosis with moderate aortic regurgitation Chronic hypotension Possibly due to ESRD and CHF status Cont midodrine (Baseline B/P 80s/50s) Peripheral vascular disease with bilateral below knee amputations Continue aspirin and statin. 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 VS, I&O, 24H, Fishbone Vital Signs/I&O Vital Signs Date Time Temp Pulse Resp B/P (MAP) Pulse Ox O2 Delivery O2 Flow Rate FiO2 10/23/18 12:00 98.2 117 18 92/59 (70) 95 Room Air 10/23/18 08:00 I&O- Last 24 Hours up to 6 AM 10/23/18 06:00 Intake Total 1260 ml Output Total 1200 ml Balance 60 ml Laboratory Data 24H LABS Laboratory Tests 2 10/22/18 16:33: Bedside Glucose (Misc Panel) 133H 10/22/18 21:39: Bedside Glucose (Misc Panel) 161H 10/23/18 04:13: Nucleated Red Blood Cells % (auto) 0.0, Anion Gap 9, Glomerular Filtration Rate 13.7L, Blood Urea Nitrogen 22H, Creatinine 5.37H, Sodium Level 134L, Potassium Level 3.9, Chloride Level 100, Carbon Dioxide Level 25, Calcium Level 7.9L, Magnesium Level 1.9 10/23/18 11:28: Bedside Glucose (Misc Panel) 146H CBC/BMP Laboratory Tests 10/23/18 04:13 Red Blood Count 3.99 L, Mean Corpuscular Volume 84.0, Mean Corpuscular Hemoglobin 23.3 L, Mean Corpuscular Hemoglobin Concent 27.8 L, Red Cell Distribution Width 20.6 H, Calcium Level 7.9 L Microbiology Microbiology 10/17/18 Blood Culture - Final, Complete NO GROWTH AFTER 5 DAYS 10/17/18 Blood Culture - Final, Complete NO GROWTH AFTER 5 DAYS 10/17/18 Respiratory Virus Panel (PCR) (SARAH) - Final, Complete CHAYITO RAMOS MD Oct 23, 2018 14:41
[2018-10-23] MEDS: MEROPENEM INJ 500 MG in APPROPRIATE DILUENT 1 EA IV SCH (15:11)
[2018-10-23 16:00] VITALS: BP 85/49
[2018-10-23] MEDS: **VANCO AFTER HD** MISC XX SCH (16:00)
[2018-10-23 20:00] VITALS: BP 87/52
[2018-10-23] MEDS ORDERED: diphenhydrAMINE 25 MG CAP PO PRN (22:15)
[2018-10-24] VITALS (7 sets, daily range): BP systolic 80–147; BP diastolic 41–92
[2018-10-24 04:45] LABS: HEMATOCRIT 33.5 % (42.0-52.0); HEMOGLOBIN 9.3 g/dl (13.5-17.5); MEAN CORPUSCULAR HEMOGLOBIN 23.5 pg (27.0-33.0); MEAN CORPUSCULAR HGB CONC 27.8 g/dl (32.0-36.5); MEAN CORPUSCULAR VOLUME 84.6 fl (80.0-96.0); RED BLOOD COUNT 3.96 10^6/uL (4.30-6.10); WHITE BLOOD COUNT 7.4 10^3/uL (4.0-10.0)
[2018-10-24 04:46] LABS: PLATELET COUNT, AUTOMATED 94 10^3/uL (150-450)
[2018-10-24] MEDS: DOCUSATE SODIUM 100 MG CAP PO SCH ×2 (05:12→20:02)
[2018-10-24] MEDS: SENNA 8.6 MG TAB (SENOKOT) PO SCH (05:16)
[2018-10-24 05:23] LABS: CALCIUM LEVEL 7.8 MG/DL (8.8-10.2); CREATININE FOR GFR 6.32 MG/DL (0.70-1.30); GLOMERULAR FILTRATION RATE 11.4 (>42); POTASSIUM SERUM 4.1 MEQ/L (3.5-5.1); VANCOMYCIN RANDOM 20.3 UG/ML
[2018-10-24] MEDS: ATORVASTATIN 20 MG TAB PO SCH (06:32)
[2018-10-24] MEDS: OMEPRAZOLE 20 MG CAP PO SCH (06:32)
[2018-10-24] MEDS: IPRATROPIUM 0.5MG/ALBUTEROL 2.5MG INH SOL UD 3ML (DUONEB)(J7620) NEB SCH ×4 (08:00→23:31)
[2018-10-24] MEDS: HumaLOG INSULIN (NovoLOG) PER UNIT SC SCH ×4 (08:22→20:02)
[2018-10-24] MEDS: MIDODRINE 5 MG TAB PO SCH ×3 (08:22→17:50)
--- NOTE | 2018-10-24 08:47 | IPN ---
DATE OF SERVICE: 10/23/2018 SUBJECTIVE: Patient seen and examined this morning at the bedside. is present. There is no report of acute overnight events or issues. He tolerated his ultrafiltration session yesterday with 1200 mL of fluid removed. tells me that Dr. Langston saw the patient for the right index finger wound and felt that there was no need for surgical intervention at present time. Vital signs: Temperature 98.2, pulse 105, respiratory rate 18, blood pressure 85/49, saturating 99% on room air. Intake yesterday was 1260. Ultrafiltration session yesterday removed 1200. Weight on the bed scale is not recorded. General: Patient is seen lying in bed, comfortable in no acute distress. Tongue is moist. Extraocular muscles are intact. Heart sounds are irregularly, irregular. Jugular veins are slightly elevated. Lungs have diminished breath sounds at the bases. Abdomen is soft and nontender. There are bowel sounds. Extremities show bilateral lower extremity amputations and 1+ pitting edema in the peripheries. The right index finger is wrapped in a dressing. He is at his baseline mentation. The left upper extremity fistula is partially patent and there is a tunneled PermaCath present in the subclavian Labs: White count 7.9, hemoglobin 9.3. Sodium 134, potassium 3.9, bicarbonate 25. Inpatient medications reviewed by myself and no change prior. PROBLEMS: 1. End-stage renal disease on hemodialysis. Patient received an extra ultrafiltration session yesterday as he was mildly hypervolemic on exam with 1200 mL of fluid removed. His PermaCath is functioning well and the arteriovenous (AV) fistula is not being used due to partial thrombosis. At some point, he will need vascular intervention for declotting of the fistula. Next dialysis treatment will be on Wednesday per his usual schedule. 2. History of hypotension. This is a chronic issue. Patient continues on midodrine 5 mg twice a day and blood pressure is at its usual baseline and he is asymptomatic. 3. Anemia related to renal failure and iron deficiency and inflammatory state and history of rectal bleed. Patient continues on Aranesp and hemoglobin is slowly improving from priors. There is no need for a transfusion at present. 4. Atrial fibrillation. Patient continues on digoxin. He is not a candidate for beta-blockers due to his chronic hypotension and he is not a candidate for anticoagulation due to history of recurrent rectal bleed. 5. Infected right index finger. On broad-spectrum antimicrobials as per primary team, and has been evaluated by vascular surgery and not found to require surgical intervention at present. DARRICKD
[2018-10-24] MEDS: GABAPENTIN 300 MG CAP PO SCH ×3 (09:00→20:03)
--- NOTE | 2018-10-24 11:22 | REP ---
CT chest without contrast: History: Followup chest CT. Effusion and opacities. Comparison chest CT study: October 17, 2018. There are small bilateral pleural effusions again noted essentially unchanged from most recent study. Some pleural air is again seen in the right mid chest also unchanged displaying air-fluid levels. There is parietal pleural thickening again noted bilaterally. Pulmonary parenchymal opacification is seen in the lower lobes bilaterally. This is essentially unchanged from October 17, 2018. No new infiltrate is seen. There is some posterior upper lobe consolidation on the right which is unchanged as well. Left internal jugular central venous catheter is again noted. Stable mediastinal lymph nodes are seen. Impression: There is no significant change in the chest CT findings since the most recent prior study of October 17, 2018. Electronically Signed by Jorge Perea MD 10/24/2018 07:58 P
--- NOTE | 2018-10-24 11:53 | IPNPDOC ---
Subjective Date Seen The patient was seen on 10/24/18. Subjective Chief Complaint/HPI Patient seen and examined at the bedside. Denies any acute overnight events. He is scheduled for a CT scan of the chest to follow-up pleural effusions and bilateral opacities. He is also scheduled to be dialyzed today. Objective Physical Examination General Exam: Positive: Alert, Cooperative, No Acute Distress ENT Exam: Positive: Atraumatic, Mucous membr. moist/pink Chest Exam: Positive: Diminished Heart Exam: Positive: Tachycardic, Irregular Rhythm, Normal S1, Normal S2 Telemetry: Positive: Atrial fibrillation Abdomen Exam: Positive: Soft; Negative: Tenderness Extremity Exam: Positive: Other (b/l lower extremity BKA ) Skin Exam: Positive: Other skin issue (Right index finger noted to have necrotic tissue with eschar formation) Assessment /Plan Plan/VTE VTE Prophylaxis Ordered?: Yes Plan Hypotension likely 2/[address] Chest notable for B/L patchy opacities on admission, we will repeat a CT Chest today to follow up on progression of opacities/effusions Right Index finger with eschar formation noted-- Dr. Langston on board; no indication for surgical intervention Blood cultures unrevealing On Vanco/Meropenem Cont to monitor in the ICU Lactic Acidosis 2/2 Above, resolved Elevated Troponin Level Troponin noted to be 1.5 in the ER, and this has subsequently downtrended EKG with non-specific changes Patient denies chest pain, palpitations Dr. Renner of Cardiology contacted in the ER, states that this is likely demand ischemia from hypotension from possible underlying infection--he recommends that there is no indication for transfer and cardiac cath at this time--Cont med management with ASA, Statin Paroxysmal A fib Cont Digoxin Not on AC 2/2 Hx of GI Bleed ESRD on HD Nephro on board Severe pulmonary hypertension with chronic right heart failure Fluid optimization through HD as per Nephro Moderate Calcific aortic stenosis with moderate aortic regurgitation Chronic hypotension Possibly due to ESRD and CHF status Cont midodrine (Baseline B/P 80s/50s) Peripheral vascular disease with bilateral below knee amputations Continue aspirin and statin. 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 VS, I&O, 24H, Fishbone Vital Signs/I&O Vital Signs Date Time Temp Pulse Resp B/P (MAP) Pulse Ox O2 Delivery O2 Flow Rate FiO2 10/24/18 08:00 2.0 10/24/18 08:00 98.6 89 18 106/50 (68) 100 Nasal Cannula I&O- Last 24 Hours up to 6 AM 10/24/18 05:59 Intake Total 650 ml Output Total 0 ml Balance 650 ml Laboratory Data 24H LABS Laboratory Tests 2 10/23/18 16:53: Bedside Glucose (Misc Panel) 136H 10/23/18 20:30: Bedside Glucose (Misc Panel) 138H 10/24/18 04:32: Nucleated Red Blood Cells % (auto) 0.4H, Immature Platelet Fraction 9.4, Anion Gap 9, Glomerular Filtration Rate 11.4L, Blood Urea Nitrogen 28H, Creatinine 6.32H, Sodium Level 138, Potassium Level 4.1, Chloride Level 101, Carbon Dioxide Level 28, Calcium Level 7.8L, Magnesium Level 2.0, Random Vancomycin Level 20.3 CBC/BMP Laboratory Tests 10/24/18 04:32 Red Blood Count 3.96 L, Mean Corpuscular Volume 84.6, Mean Corpuscular Hemoglobin 23.5 L, Mean Corpuscular Hemoglobin Concent 27.8 L, Red Cell Distribution Width 20.7 H, Calcium Level 7.8 L Microbiology Microbiology 10/17/18 Blood Culture - Final, Complete NO GROWTH AFTER 5 DAYS 10/17/18 Blood Culture - Final, Complete NO GROWTH AFTER 5 DAYS 10/17/18 Respiratory Virus Panel (PCR) (SARAH) - Final, Complete CHAYITO RAMOS MD Oct 24, 2018 11:53
--- NOTE | 2018-10-24 13:07 | IPN ---
DATE: 10/24/2018 SUBJECTIVE: The patient was seen and examined this morning at bedside in dialysis. There was no acute overnight event or issues reported. He continues to complain of some soreness on his right finger and he feels to have a sore on his right buttocks, which is not new. He is currently stable and is tolerating dialysis well with the exception of his blood pressures being on the hypotensive side today. VITALS: Temperature 98.6, pulse 89, irregular, respiratory rate 18, blood pressure 106/50 (68), pulse oximetry 100% on 2 liters of nasal cannula. GENERAL: The patient is seen lying in bed, comfortable, in no acute distress, appropriately answering questions. HEENT: Atraumatic. Extraocular muscles are intact. No oral mucous lesions noted. Moist mucous membranes. HEART: Irregularly irregular. Slight jugular venous distention (JVD) is present. LUNGS: Diminished breath sounds bilaterally. ABDOMEN: Soft. Nontender. Positive bowel sounds. EXTREMITIES: 1+ pitting edema of the lower extremities bilaterally in the thighs. He also has bilateral lower extremity amputations. NEUROLOGIC: He is at baseline mentation. SKIN: Left upper extremity fistula is not fully patent and there is a tunneled PermaCath present. LABS: Hematology: WBC 7.4, hemoglobin 9.3, hematocrit 33.5, platelets 94. Chemistries: Electrolytes are within normal limits. BUN and creatinine 28 over 6.32. GFR of 11.4. Fasting glucose 146. Calcium 7.8. PROBLEMS: 1. End stage renal disease on hemodialysis. He continues to be mild hypovolemic and he is getting dialysis today via his PermaCath which is functioning well. His AV fistula is not being used due to partial thrombosis. At some point, he will need to have vascular intervention for declotting of the fistula. We will continue with his dialysis schedule. 2. History of hypotension. This is a chronic issue. We have adjusted his midodrine. We have increased it to 10 mg in the a.m. and 10 mg in the afternoon and then 5 mg in the evening. We will see if this helps with his blood pressures, especially when he goes to hemodialysis. 3. Anemia related to renal failure and iron deficiency and inflammation. States he has a history of rectal bleeds. Will continue on Aranesp. Hemoglobin is currently stable. There is no need of transfusion at this time. Will continue to monitor. 4. History of atrial fibrillation. Will continue with his digoxin. He is not a candidate for beta ross due to his chronic hypotension and he is not a candidate for anticoagulation due to his history of rectal bleeds. 5. Infected right index finger. On broad spectrum antibiotics per primary team. Has been evaluated by surgery. Does not require surgical intervention at this present time. DISPOSITION: We have adjusted his midodrine and will see if this helps with his hypotension. My faculty preceptor for this patient encounter was physically present during the encounter and was fully available. All aspects of the patient interview, examination, medical decision making process, and medical care plan development were reviewed and approved by the faculty preceptor. The faculty preceptor is aware and concurs with the plan as stated in the body of this note and will attest to such by his/her co-signature. MARIA ALEJANDRA
[2018-10-24] MEDS: ASPIRIN 81 MG ENTERIC TAB PO SCH (13:43)
[2018-10-24] MEDS: **VANCO AFTER HD** MISC XX SCH (16:00)
[2018-10-24] MEDS: VANCOMYCIN HCL 750 MG, VIAL MATE ADAPTER 1 EACH in D5W 250 ML IV SCH (18:26)
[2018-10-24] MEDS: diphenhydrAMINE 25 MG CAP PO PRN (22:31)
[2018-10-25] VITALS: BP 97/57
[2018-10-25 04:00] VITALS: BP 109/59
[2018-10-25 06:00] LABS: HEMATOCRIT 34.1 % (42.0-52.0); HEMOGLOBIN 9.3 g/dl (13.5-17.5); MEAN CORPUSCULAR HEMOGLOBIN 23.2 pg (27.0-33.0); MEAN CORPUSCULAR HGB CONC 27.3 g/dl (32.0-36.5); RED BLOOD COUNT 4.01 10^6/uL (4.30-6.10); WHITE BLOOD COUNT 7.1 10^3/uL (4.0-10.0)
[2018-10-25 06:02] LABS: PLATELET COUNT, AUTOMATED 87 10^3/uL (150-450)
[2018-10-25 06:24] LABS: CALCIUM LEVEL 8.3 MG/DL (8.8-10.2); CREATININE FOR GFR 4.67 MG/DL (0.70-1.30); GLOMERULAR FILTRATION RATE 16.1 (>42); MAGNESIUM LEVEL 1.9 MG/DL (1.8-2.4)
[2018-10-25] MEDS: HumaLOG INSULIN (NovoLOG) PER UNIT SC SCH ×4 (07:30→20:47)
[2018-10-25] MEDS: DOCUSATE SODIUM 100 MG CAP PO SCH ×2 (07:34→20:18)
[2018-10-25] MEDS: GABAPENTIN 300 MG CAP PO SCH ×3 (07:34→20:18)
[2018-10-25] MEDS: ATORVASTATIN 20 MG TAB PO SCH (07:35)
[2018-10-25] MEDS: MIDODRINE 5 MG TAB PO SCH ×3 (07:35→16:32)
[2018-10-25] MEDS: ASPIRIN 81 MG ENTERIC TAB PO SCH (07:37)
[2018-10-25] MEDS: SENNA 8.6 MG TAB (SENOKOT) PO SCH (07:39)
[2018-10-25] MEDS: OMEPRAZOLE 20 MG CAP PO SCH (07:39)
[2018-10-25] MEDS: DIGOXIN 0.125 MG TAB PO SCH (07:39)
[2018-10-25 08:00] VITALS: BP 100/60
[2018-10-25] MEDS: IPRATROPIUM 0.5MG/ALBUTEROL 2.5MG INH SOL UD 3ML (DUONEB)(J7620) NEB SCH ×2 (08:00→15:44)
[2018-10-25] MEDS: diphenhydrAMINE 25 MG CAP PO PRN (09:21)
[2018-10-25 12:00] VITALS: BP 102/68
--- NOTE | 2018-10-25 15:12 | IPNPDOC ---
Text Note Date of Service The patient was seen on 10/25/18. NOTE Subjective: Patient is a 68-year-old -[place] male with a past medical history of PVD w/ BL BKA, DM2, ESRD on HD (MWF), Hypotension (on Midodrine), Prostate CA s/p surgery / RT, AOCD, Chronic troponin elevation, Diastolic CHF, Severe pulmonary HTN, Aortic stenosis, A. fib, Diverticulosis, Hemorrhoids, Hx of Hematochezia 2/2 radiation proctitis s/p Argon Laser coagulation (2016), Rectal ulcers s/p cauterization (05/2018) who presented to the ER with hypotension. In the ER patient was found to have a developing pneumonia. He was started on empiric therapy and admitted to the hospitalist service. Patient was seen and examined at the bedside. Currently patient denies any chest pain, shortness of breath, palpitations, nausea, vomiting, abdominal pain, constipation, diarrhea. Objective: Vitals (See below) General: Lying in bed, no acute distress, comfortable, Awake / Alert HEENT: NC, AT CVS: RRR, +S1S2 Lungs: Fair air entry b/l, no wheezing / rhonchi, evidence of b/l crackles Abdomen: Soft, ND, NT Extremities: BL BKA Assessment and plan: Decompensated Diastolic CHF - Evidence of fluid overload on physical exam - Will attempt to remove additional fluids during HD with adjusted dose of Midodrine - c/w Strict ins/outs, Daily weights Healthcare associate pneumonia - Clinically has had improvement in symptoms - Hemodynamically stable and afebrile - CT chest 10/17: 1. Small bilateral pleural effusions, new on the left and smaller on the right than on September 22, 2018. There is some loculated air in the right pleural space post recent instrumentation. 2. Patchy bilateral opaci ties mostly in the lower lobes and the right upper lobe. 3. Stable mediastinal adenopathy. 4. Left-sided Ddcvdb-L-Kbvf catheter tip currently in the proximal azygos venous arch. 5. Stable splenomegaly. 6. Cholelithiasis and multiple renal cysts and bilateral renal cortical atrophy. - s/p Meropenem & Vancomycin (completed 7 day course) Elevated Troponin Level - Remains asymptomatic; no chest pain / Palpitations - Troponin noted to be 1.5 ion admission; has improved - EKG with non-specific changes - Dr. Renner (Cardiology) was contacted in the ER; likely demand ischemia from hypotension from possible underlying infection; advised no indication for transfer and cardiac cath at this time - c/w Medical management; ASA, Statin Hypotension - BP improved - Midodrine dose adjusted Right Index finger with eschar formation - Dr. Langston on consult; no indication for surgical intervention at this time s/p Lactic Acidosis Paroxysmal A fib - c/w Digoxin for rate / rhythm control - Not on full anticoagulation 2/2 GI bleed - c/w ASA ESRD on HD (MWF) - Nephrology on consult Severe pulmonary hypertension with chronic right heart failure - Fluid optimization through HD as per Nephro Moderate Calcific aortic stenosis with moderate aortic regurgitation PVD with BL BKA - c/w ASA and Atorvastatin DM2 - HgbA1c 5.6 - c/w ISS Sacral decubitus ulcer (Stage 3) Hx of Rectal Ulcers 2/2 Radiation proctitis Hx of Prostate Ca DVT prophylaxis - Hx of SELAM in 2016 - Arixtra SC / Prophylactic AC contraindicated 2/2 bleeding episode on prior admission - Unable to have SCDs/ ESPERANZA - Risks / Benefits discussed with Patient and ; aware of risks 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 Disposition: - Anticipate discharge when euvolemic VS,Fishbone, I+O VS, Fishbone, I+O Laboratory Tests 10/25/18 05:10 Red Blood Count 4.01 L, Mean Corpuscular Volume 85.0, Mean Corpuscular Hemog lobin 23.2 L, Mean Corpuscular Hemoglobin Concent 27.3 L, Red Cell Distribution Width 21.0 H, Calcium Level 8.3 L Vital Signs Date Time Temp Pulse Resp B/P (MAP) Pulse Ox O2 Delivery O2 Flow Rate FiO2 10/25/18 12:00 2.0 10/25/18 12:00 98.0 70 18 102/68 (79) 97 Nasal Cannula I&O- Last 24 Hours up to 6 AM 10/25/18 06:00 Intake Total 920 ml Output Total 1000 ml Balance -80 ml NGHIA EVERETT MD Oct 25, 2018 15:12
[2018-10-25 17:20] VITALS: BP 107/65
[2018-10-25] MEDS: **VANCO AFTER HD** MISC XX SCH (17:23)
--- NOTE | 2018-10-25 21:52 | IPN ---
DATE: 10/25/2018 SUBJECTIVE: The patient seen and examined this morning at the bedside. Denies any acute overnight events or issues. The patient could only tolerate one liter of fluid removal with dialysis yesterday, and he is hypervolemic on exam; hence, I have increased his midodrine to hopefully allow for better fluid removal on dialysis. The patient denies any shortness of breath at rest. VITAL SIGNS: Temperature 98.7, pulse 70, respiratory rate 20, blood pressure 107/65, saturating 94% on 2 liters nasal cannula. Intake yesterday was 920, hemodialysis removed one liter, net negative 80 mL. Weight on the bed scale today is 97.5 kg, which is overall increased over the course of this admission. General: The patient is seen lying in bed, in no acute distress. present at the bedside. He is comfortable, awake, alert, and interactive. Extraocular muscles are intact. He is edentulous. Neck veins are moderately distended. Heart sounds are irregularly irregular. Rate is controlled. Lungs show diminished breath sounds at the lower one-thirds bilaterally. The abdomen is soft and nontender. There is pitting edema present in the abdominal flanks. Lower extremities show bilateral [id number]-acp-[id number] amputations. There is pitting edema in the stumps and also in the thighs and up to the dependent area. The left arm arteriovenous (AV) fistula is distally patent and proximally with a clot. There is a tunneled PermCath present in the left chest wall, and there is a dressing on the right index finger. Neurologic: He is at his usual baseline mentation, interactive and conversational. LABORATORY: White count 7.1, hemoglobin 9.3, platelets 87. Sodium 134, potassium 5.0, bicarbonate 27, glucose 98. CT chest 10/24/2018: Notable for small bilateral pleural effusions and a posterior upper lobe consolidation on the right. INPATIENT MEDICATIONS: Midodrine increased to 10 mg at 8:00 a.m. and continue 5 mg at 12:00 p.m. and 4:00 p.m. His remainder of medications are unchanged from prior. PROBLEMS: 1. End-stage renal disease, on hemodialysis on a Wednesday, Wednesday, Wednesday maintenance schedule. The patient has pitting edema present in the lower extremities in the stumps up to the thighs and dependent area and also pitting edema present in the abdominal flanks. Unfortunately, our ability to remove fluid with dialysis was complicated by his worsening intradialytic blood pressures and hypotension of hemodialysis. I have increased his midodrine dose, and I would plan to dialyze him back to back on Wednesday, , and Wednesday. His PermCath is in use and his AV fistula is not being used due to partial thrombosis. 2. History of hypotension. This is a chronic issue and hypotension of hemodialysis is making it difficult to remove fluid. He could only tolerate one liter removal with dialysis yesterday. 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 3. Atrial fibrillation. He continues on digoxin. He is not a candidate for beta blockers due to chronic hypotension and not a candidate for anticoagulation due to history of recurrent rectal bleed. 4. History of SELAM. Patient's dialysis is heparin free. 5. Anemia related to renal failure, iron deficiency, inflammatory state, history of rectal bleed. He continues on Aranesp and hemoglobins are stable. 6. Decompensated diastolic congestive heart failure. Midodrine increased. Hopeful to remove more fluid with dialysis now and will plan to do extra dialysis session with dialysis on Wednesday, , and Wednesday and advise the patient regarding fluid restriction.
[2018-10-25 22:00] VITALS: BP 94/54
[2018-10-26] MEDS ORDERED: DIGOXIN 0.125 MG TAB PO ONE
[2018-10-26 06:00] VITALS: BP 109/53
[2018-10-26 06:51] LABS: VANCOMYCIN RANDOM 22.1 UG/ML
[2018-10-26 07:21] LABS: BASO # 0.1 10^3/uL (0.0-0.2); BASO % 0.6 % (0.0-1.0); EOS # 0.1 10^3/uL (0.0-0.50); EOS % 0.8 % (0.0-3.0); HEMATOCRIT 35.5 % (42.0-52.0); HEMOGLOBIN 9.8 g/dl (13.5-17.5); LYMPH # 0.8 10^3/uL (1.5-4.5); LYMPH % 9.2 % (24.0-44.0); MEAN CORPUSCULAR HEMOGLOBIN 23.8 pg (27.0-33.0); MEAN CORPUSCULAR HGB CONC 27.6 g/dl (32.0-36.5); MEAN CORPUSCULAR VOLUME 86.4 fl (80.0-96.0); MONO # 1.1 10^3/uL (0.0-0.8); MONO % 12.2 % (0.0-5.0); NEUTROPHILS # 6.8 10^3/uL (1.8-7.7); NEUTROPHILS % 76.6 % (36.0-66.0); RED BLOOD COUNT 4.11 10^6/uL (4.30-6.10); WHITE BLOOD COUNT 8.9 10^3/uL (4.0-10.0)
[2018-10-26] MEDS: ASPIRIN 81 MG ENTERIC TAB PO SCH (07:23)
[2018-10-26] MEDS: GABAPENTIN 300 MG CAP PO SCH ×3 (07:23→20:31)
[2018-10-26 07:24] LABS: PLATELET COUNT, AUTOMATED 85 10^3/uL (150-450)
[2018-10-26] MEDS: ATORVASTATIN 20 MG TAB PO SCH (07:24)
[2018-10-26] MEDS: OMEPRAZOLE 20 MG CAP PO SCH (07:24)
[2018-10-26] MEDS: MIDODRINE 5 MG TAB PO SCH ×3 (07:24→16:53)
[2018-10-26] MEDS: SENNA 8.6 MG TAB (SENOKOT) PO SCH (07:25)
[2018-10-26] MEDS: DOCUSATE SODIUM 100 MG CAP PO SCH ×2 (07:25→20:31)
[2018-10-26 07:27] LABS: ALBUMIN 2.4 GM/DL (3.2-5.2); BILIRUBIN,TOTAL 0.9 MG/DL (0.2-1.0); CALCIUM LEVEL 8.4 MG/DL (8.8-10.2); CREATININE FOR GFR 5.81 MG/DL (0.70-1.30); GLOMERULAR FILTRATION RATE 12.5 (>42); MAGNESIUM LEVEL 1.9 MG/DL (1.8-2.4); POTASSIUM SERUM 4.9 MEQ/L (3.5-5.1); TOTAL PROTEIN 7.1 GM/DL (6.4-8.2)
[2018-10-26] MEDS: HumaLOG INSULIN (NovoLOG) PER UNIT SC SCH ×4 (08:44→20:31)
[2018-10-26] MEDS: IPRATROPIUM 0.5MG/ALBUTEROL 2.5MG INH SOL UD 3ML (DUONEB)(J7620) NEB SCH ×4 (09:00→23:15)
[2018-10-26 09:36] LABS: DIGOXIN LEVEL 2.5 NG/ML (0.5-2.0)
--- NOTE | 2018-10-26 10:47 | IPNPDOC ---
Text Note Date of Service The patient was seen on 10/26/18. NOTE Subjective: Patient is a 68-year-old -Iranian male with a past medical history of PVD w/ BL BKA, DM2, ESRD on HD (MWF), Hypotension (on Midodrine), Prostate CA s/p surgery / RT, AOCD, Chronic troponin elevation, Diastolic CHF, Severe pulmonary HTN, Aortic stenosis, A. fib, Diverticulosis, Hemorrhoids, Hx of Hematochezia 2/2 radiation proctitis s/p Argon Laser coagulation (2016), Rectal ulcers s/p cauterization (05/2018) who presented to the ER with hypotension. In the ER patient was found to have a developing pneumonia. He was started on empiric therapy and admitted to the hospitalist service. Patient was seen and examined at the bedside. Patient was seen during HD. He denies any light-headedness, dizziness, confusion. Denies CP, SOB, palpitations. Has not experienced any N/V, abdominal pain, C/D. Objective: Vitals (See below) General: Lying in bed, no acute distress, comfortable, Awake / Alert HEENT: NC, AT CVS: RRR, +S1S2 Lungs: Fair air entry b/l, no appreciable wheezing or rhonchi, there are still b/l crackles noted Abdomen: Soft, ND, remains non-tender Extremities: BL BKA Assessment and plan: Decompensated Diastolic CHF - Evidence of fluid overload on physical exam - c/w HD to remove additional fluids as tolerated with adjusted dose of Midodrine - c/w Strict ins/outs, Daily weights s/p Healthcare associate pneumonia - Clinically has had improvement in symptoms - Hemodynamically stable and afebrile - CT chest 10/17: 1. Small bilateral pleural effusions, new on the left and smaller on the right than on September 22, 2018. There is some loculated air in the right pleural space post recent instrumentation. 2. Patchy bilateral opacities mostly in the lower lobes and the right upper lobe. 3. Stable mediastinal adenopathy. 4. Left-sided Iixwbf-B-Fhxd catheter tip currently in the proximal azygos venous arch. 5. Stable splenomegaly. 6. Cholelithiasis and multiple renal cysts and bilateral renal cortical atrophy. - Will check CRP tomorrow am - s/p Meropenem & Vancomycin (Completed 7 day course) Elevated Troponin Level - Remains asymptomatic; no chest pain / Palpitations - Troponin noted to be 1.5 ion admission; has improved - EKG with non-specific changes - Dr. Renner (Cardiology) was contacted in the ER; likely demand ischemia from hypotension from possible underlying infection; advised no indication for transfer and cardiac cath at this time - c/w Medical management; ASA, Statin Hypotension - BP improved - Midodrine dose adjusted Right Index finger with eschar formation - Dr. Langston on consult; no indication for surgical intervention at this time s/p Lactic Acidosis Paroxysmal A fib - c/w Digoxin for rate / rhythm control - Not on full anticoagulation 2/2 GI bleed - c/w ASA ESRD on HD (MWF) - Nephrology on consult Severe pulmonary hypertension with chronic right heart failure - Fluid optimization through HD as per Nephro Moderate Calcific aortic stenosis with moderate aortic regurgitation PVD with BL BKA - c/w ASA and Atorvastatin DM2 - HgbA1c 5.6 - c/w ISS Sacral decubitus ulcer (Stage 3) Hx of Rectal Ulcers 2/2 Radiation proctitis Hx of Prostate Ca DVT prophylaxis - Hx of SELAM in 2016 - Arixtra SC / Prophylactic AC contraindicated 2/2 bleeding episode on prior admission - Unable to have SCDs/ ESPERANZA - Risks / Benefits discussed with Patient and ; aware of risks 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 Disposition: - Anticipate discharge when euvolemic; possible over the weekend VS,Fishbone, I+O VS, Fishbone, I+O Laboratory Tests 10/26/18 06:07 Red Blood Count 4.11 L, Mean Corpuscular Volume 86.4, Mean Corpuscular Hemoglobin 23.8 L, Mean Corpuscular Hemoglobin Concent 27.6 L, Red Cell Distribution Width 21.2 H, Neutrophils (%) (Auto) 76.6 H, Lymphocytes (%) (Auto) 9.2 L, Monocytes (%) (Auto) 12.2 H, Eosinophils (%) (Auto) 0.8, Basophils (%) (Auto) 0.6, Neutrophils # (Auto) 6.8, Lymphocytes # (Auto) 0.8 L, Monocytes # (Auto) 1.1 H, Eosinophils # (Auto) 0.1, Basophils # (Auto) 0.1 10/26/18 06:10 Calcium Level 8.4 L, Aspartate Amino Transf (AST/SGOT) 80 H, Alanine A minotransferase (ALT/SGPT) 33, Alkaline Phosphatase 182 H, Total Bilirubin 0.9, Total Protein 7.1, Albumin 2.4 L Vital Signs Date Time Temp Pulse Resp B/P (MAP) Pulse Ox O2 Delivery O2 Flow Rate FiO2 10/26/18 06:00 96.7 65 18 109/53 (71) 95 Nasal Cannula 2.0 I&O- Last 24 Hours up to 6 AM 10/26/18 06:00 Intake Total 720 ml Output Total 0 ml Balance 720 ml NGHIA EVERETT MD Oct 26, 2018 10:47
[2018-10-26 14:00] VITALS: BP 97/50
--- NOTE | 2018-10-26 15:53 | IPN ---
DATE: 10/26/2018 SUBJECTIVE: The patient was seen and examined this morning in dialysis. There were no acute overnight events or issues reported. The patient at this time is currently tolerating fluid removal in dialysis today. He does appear hypervolemic on examination. Since his increase of midodrine, his blood pressures have been a little bit more stable. We are trying to attempt for better fluid removal today and an extra hemodialysis session tomorrow. The patient denies having any shortness of breath at rest. He states that he is just very tired and would like to get some sleep. VITAL SIGNS: Temperature 96.7, pulse 65 and irregular, respiratory rate 18, blood pressure 109/53 (71), pulse oximetry 95% on two liters of nasal cannula which is baseline. Intake total yesterday was 720. There was zero output recorded with a net balance of negative 720. The patient does not make any urine. He is currently getting hemodialysis at this current time. His last recorded weight was yesterday at 97.5 kg which has been consistent for the last 48 hours. GENERAL: The patient is seen lying in bed in hemodialysis. He does not appear in any acute distress. No one is at bedside. He is comfortable, awake, alert and interactive. States that he has no complaints today. HEENT: Extraocular movements are intact. He is edentulous. His neck veins continue to be moderately distended. CARDIAC: Heart sounds continue to be irregularly irregular but they are rate controlled. LUNGS: Diminished breath sounds bilaterally especially in the lower one-third. ABDOMEN: Soft, nontender with positive bowel sounds. Obese abdomen. EXTREMITIES: Lower extremities: He does have bilateral [id number] amputation. There is edema in the stumps, thighs and up to the dependent area. His left arteriovenous (AV) fistula is distally patent with proximal with a clot. There is a tunneled PermaCath present in the left chest wall and there is a dressing on his right index finger. NEUROLOGIC: He is at baseline mentation, interactive and conversational. LABORATORY DATA: Hematology: WBC 8.9, hemoglobin 9.8, hematocrit 35.5, platelets 85. Chemistries: Sodium 134, potassium 4.9, chloride 100, carbon dioxide 25, BUN 23, creatinine 5.81, fasting glucose of 111, calcium of 8.4, magnesium of 1.9. INPATIENT MEDICATIONS: Reviewed by me and Dr. Jean-Baptiste and there have been no changes in his medications today. PROBLEMS: 1. End-stage renal disease, on hemodialysis on Wednesday, Wednesday, Wednesday maintenance schedule. He continues to have pitting edema in his lower extremities up to his dependent area, none on his abdominal flanks though. Because his blood pressure has been adequate, he will get hemodialysis today and will get an extra treatment tomorrow. Hopefully, this will help with his hypervolemia status. His PermaCath is in use and his arteriovenous (AV) fistula is not being used because of a partial thrombosis. We will need to have this declotted outpatient. 2. History of hypotension. This is a chronic issue. His hypotension on hemodialysis makes it very difficult for removal of fluid. He has been tolerating at least one liter removal on dialysis today since his midodrine has been increased. 3. Atrial fibrillation. We will continue with the digoxin. He is not a candidate for beta blockers due to his chronic hypotension and he is not a candidate for anticoagulation because of his history of recurrent rectal bleeds. 4. 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 His dialysis is heparin free. 5. Anemia, related to renal failure, iron deficiency, inflammatory state, history of rectal bleed. He continues Aranesp and hemoglobin is currently stable. 6. Decompensated congestive heart failure. He is currently hypervolemia. We are hoping to remove extra fluid in dialysis now and tomorrow. We will have to continue with the fluid restriction and we will continue with his midodrine as scheduled. My faculty preceptor for this patient encounter was physically present during the encounter and was fully available. All aspects of the patient interview, examination, medical decision making process, and medical care plan development were reviewed and approved by the faculty preceptor. The faculty preceptor is aware and concurs with the plan as stated in the body of this note and will attest to such by his/her co-signature. MARIA ALEJANDRA
[2018-10-26 17:00] VITALS: BP 76/32
[2018-10-26 17:41] VITALS: BP 80/30
[2018-10-26 22:00] VITALS: BP 80/50
[2018-10-27] MEDS: IPRATROPIUM 0.5MG/ALBUTEROL 2.5MG INH SOL UD 3ML (DUONEB)(J7620) NEB SCH ×5 (00:30→23:07)
[2018-10-27 06:00] VITALS: BP 94/54
[2018-10-27 06:08] LABS: BASO % 0.1 % (0.0-1.0); EOS % 0.6 % (0.0-3.0); HEMATOCRIT 33.4 % (42.0-52.0); HEMOGLOBIN 9.2 g/dl (13.5-17.5); LYMPH # 0.6 10^3/uL (1.5-4.5); LYMPH % 9.1 % (24.0-44.0); MEAN CORPUSCULAR HEMOGLOBIN 23.3 pg (27.0-33.0); MEAN CORPUSCULAR HGB CONC 27.5 g/dl (32.0-36.5); MEAN CORPUSCULAR VOLUME 84.6 fl (80.0-96.0); MONO # 0.8 10^3/uL (0.0-0.8); MONO % 11.4 % (0.0-5.0); NEUTROPHILS # 5.5 10^3/uL (1.8-7.7); NEUTROPHILS % 78.1 % (36.0-66.0); RED BLOOD COUNT 3.95 10^6/uL (4.30-6.10)
[2018-10-27 06:25] LABS: PLATELET COUNT, AUTOMATED 80 10^3/uL (150-450)
[2018-10-27 06:52] LABS: ALBUMIN 2.2 GM/DL (3.2-5.2); BILIRUBIN,TOTAL 0.6 MG/DL (0.2-1.0); C REACTIVE PROTEIN QUANTITATIV 5.4 MG/DL (0.00-0.30); CREATININE FOR GFR 4.68 MG/DL (0.70-1.30); DIGOXIN LEVEL 1.5 NG/ML (0.5-2.0); GLOMERULAR FILTRATION RATE 16.1 (>42); TOTAL PROTEIN 6.9 GM/DL (6.4-8.2)
[2018-10-27 07:53] LABS: POTASSIUM SERUM 5.2 MEQ/L (3.5-5.1)
[2018-10-27] MEDS: HumaLOG INSULIN (NovoLOG) PER UNIT SC SCH ×4 (08:02→20:29)
[2018-10-27] MEDS: MIDODRINE 5 MG TAB PO SCH ×3 (08:02→15:39)
[2018-10-27] MEDS: OMEPRAZOLE 20 MG CAP PO SCH (08:02)
[2018-10-27] MEDS: ASPIRIN 81 MG ENTERIC TAB PO SCH (08:02)
[2018-10-27] MEDS: GABAPENTIN 300 MG CAP PO SCH ×3 (08:02→20:29)
[2018-10-27] MEDS: DOCUSATE SODIUM 100 MG CAP PO SCH ×2 (08:03→20:29)
[2018-10-27] MEDS: ATORVASTATIN 20 MG TAB PO SCH (08:03)
[2018-10-27] MEDS: DIGOXIN 0.125 MG TAB PO SCH (08:03)
[2018-10-27] MEDS: SENNA 8.6 MG TAB (SENOKOT) PO SCH (08:04)
--- NOTE | 2018-10-27 09:02 | IPNPDOC ---
Text Note Date of Service The patient was seen on 10/27/18. NOTE Subjective: Patient is a 68-year-old -[place] male with a past medical history of PVD w/ BL BKA, DM2, ESRD on HD (MWF), Hypotension (on Midodrine), Prostate CA s/p surgery / RT, AOCD, Chronic troponin elevation, Diastolic CHF, Severe pulmonary HTN, Aortic stenosis, A. fib, Diverticulosis, Hemorrhoids, Hx of Hematochezia 2/2 radiation proctitis s/p Argon Laser coagulation (2016), Rectal ulcers s/p cauterization (05/2018) who presented to the ER with hypotension. In the ER patient was found to have a developing pneumonia. He was started on empiric therapy and admitted to the hospitalist service. Patient was seen and examined at the bedside. Patient had no complaints this morning. He denied chest pain, SOB, palpitations, N/V, abdominal pain, C/D. Objective: Vitals (See below) General: Lying in bed, no acute distress, comfortable, Awake / Alert HEENT: NC, AT CVS: RRR, +S1S2 Lungs: Fair air entry b/l, b/l crackles can still be faintly appreciated b/l, no appreciable wheezing / rhonchi Abdomen: Soft, ND, no apparent tenderness Extremities: BL BKA, some level of 1+ edema at stump b/l Assessment and plan: Decompensated Diastolic CHF - Evidence of fluid overload on physical exam - c/w HD to remove additional fluids as tolerated - Will be going for additional HD today - c/w Strict ins/outs, Daily weights s/p Healthcare associate pneumonia - Clinically has had improvement in symptoms - Hemodynamically stable and afebrile - CT chest 10/17: 1. Small bilateral pleural effusions, new on the left and smaller on the right than on September 22, 2018. There is some loculated air in the right pleural space post recent instrumentation. 2. Patchy bilateral opacities mostly in the lower lobes and the right upper lobe. 3. Stable mediastinal adenopathy. 4. Left-sided Kmchrx-G-Bwzi catheter tip currently in the proximal azygos venous arch. 5. Stable splenomegaly. 6. Cholelithiasis and multiple renal cysts and bilateral renal cortical atrophy. - Mild elevation in CRP; will continue to trend - s/p Meropenem & Vancomycin (Completed 7 day course) Elevated Troponin Level - Remains asymptomatic; no chest pain / Palpitations - Troponin noted to be 1.5 ion admission; has improved - EKG with non-specific changes - Dr. Renner (Cardiology) was contacted in the ER; likely demand ischemia from hypotension from possible underlying infection; advised no indication for transfer and cardiac cath at this time - c/w Medical management; ASA, Statin Hypotension - BP improved - Midodrine dose adjusted Right Index finger with eschar formation - Dr. Langston on consult; no indication for surgical intervention at this time s/p Lactic Acidosis Paroxysmal A fib - c/w Digoxin for rate / rhythm control - Not on full anticoagulation 2/2 GI bleed - c/w ASA ESRD on HD (MWF) - Nephrology on consult Severe pulmonary hypertension with chronic right heart failure - Fluid optimization through HD as per Nephro Moderate Calcific aortic stenosis with moderate aortic regurgitation PVD with BL BKA - c/w ASA and Atorvastatin DM2 - HgbA1c 5.6 - c/w ISS Sacral decubitus ulcer (Stage 3) Hx of Rectal Ulcers 2/2 Radiation proctitis Hx of Prostate Ca DVT prophylaxis - Hx of SELAM in 2016 - Arixtra SC / Prophylactic AC contraindicated 2/2 bleeding episode on prior admission - Unable to have SCDs/ ESPERANZA - Risks / Benefits discussed with Patient and ; aware of risks Prognosis: - Poor Detention Prognosis Disposition: - Anticipate discharge when euvolemic; possible over the weekend VS,Fishbone, I+O VS, Fishbone, I+O Laboratory Tests 10/27/18 05:44 Red Blood Count 3.95 L, Mean Corpuscular Volume 84.6, Mean Corpuscular Hemoglobin 23.3 L, Mean Corpuscular Hemoglobin Concent 27.5 L, Red Cell Distribution Width 21.1 H, Neutrophils (%) (Auto) 78.1 H, Lymphocytes (%) (Auto) 9.1 L, Monocytes (%) (Auto) 11.4 H, Eosinophils (%) (Auto) 0.6, Basophils (%) (Auto) 0.1, Neutrophils # (Auto) 5.5, Lymphocytes # (Auto) 0.6 L, Monocytes # (Auto) 0.8, Eosinophils # (Auto) 0.0, Basophils # (Auto) 0.0, Calcium Level 8.0 L, Aspartate Amino Transf (AST/SGOT) 122 H, Alanine Aminotransferase (ALT/SGPT) 41, Alkaline Phosphatase 199 H, Total Bilirubin 0.6, Total Protein 6.9, Albumin 2.2 L Vital Signs Date Time Temp Pulse Resp B/P (MAP) Pulse Ox O2 Delivery O2 Flow Rate FiO2 10/27/18 08:31 94 Nasal Cannula 1.0 10/27/18 08:03 112 10/27/18 06:00 97.7 18 94/54 (67) I&O- Last 24 Hours up to 6 AM 10/27/18 06:00 Intake Total 600 ml Output Total 1500 ml Balance -900 ml NGHIA EVERETT MD Oct 27, 2018 09:02
[2018-10-27] MEDS ORDERED: HEPARIN 1,000 UNITS/ML 10ML VIAL (FOR RADIOLOGY& DIALYSIS ONLY) XX ONE (12:00)
[2018-10-27 14:00] VITALS: BP 65/40
[2018-10-27 15:14] VITALS: BP 81/42
--- NOTE | 2018-10-27 18:44 | IPN ---
DATE: 10/27/2018 Mr. Fernandez was seen and examined this morning in dialysis. Overnight he had a blood pressure mean arterial pressure (MAP) of 47, but patient appeared asymptomatic at the time. His heart rate did increase in the 100s, and he was given a one-time digoxin dose of 0.125 in the evening. When his digoxin levels were rechecked this morning, the levels are within the appropriate limits of 1.5. His blood pressure this morning has been stable with a MAP in the 60s. The patient states that he is doing well. He has no complaints. He is just very tired and would like to get some sleep. He appear slightly hypervolemic today, and that is why he is getting his extra dialysis session today. PHYSICAL EXAMINATION: VITAL SIGNS: Temperature 97.7, pulse 102, respiration rate 18, blood pressure 94/64 (67), pulse oximetry 99% on 2 liters of nasal cannula. Intake and output: Intake today yesterday was a total of 600 mL with an output balance of 1500 mL with a net balance of -900 mL. He had two bowel movements, and no weight was recorded yesterday. GENERAL: This is a 68-year-old patient who does not appear in any acute distress, appropriately answering questions. He is comfortable, awake, alert, and interactive. CARDIAC: Heart sounds are irregularly irregular, slightly tachycardic but in 90s to 100s. LUNGS: Diminished breath sounds bilaterally, especially in the lower one-thirds. ABDOMEN: Soft and nontender. Positive bowel sounds. Obese abdomen. EXTREMITIES: Bilateral below-knee amputation. There is edema on the stump and thighs, improving but still present in the dependent area. He has a left arteriovenous (AV) fistula distally patent with a clot in the proximal end. There is a tunneled Perm-A-Cath in the left chest wall, and there is a dressing over his right index finger. LABORATORY DATA: Hematology: WBC 7.0, hemoglobin 9.2, hematocrit 33.4, platelets 80. Chemistries: Sodium 135, potassium 5.2, chloride 100, carbon dioxide 28, BUN 20, creatinine 4.68, GFR 16.1, fasting glucose 134, calcium 8.0. AST of 122, alkaline phosphatase of 199. CRP of 5.40. No repeat imaging. Inpatient medication reviewed by me and Dr. Jean-Baptiste. There have been changes, for we have increased his midodrine to 10 mg three times a day. No other inpatient changes have been made. PROBLEMS: 1. End-stage renal disease, on hemodialysis Wednesday, Wednesday, Wednesday. He is currently getting an extra hemodialysis session today, for he does have pitting edema in his lower extremities in the dependent area. His blood pressure has been lower, which is consistent for him for his history of hypotension. We have increased his midodrine 10 mg three times a day. Hopefully this will help with is hypervolemic status and so we can get extra fluid off today. His Perm-A-Cath is in use, for his AV fistula cannot be used, for the partial thrombosis. We will need to have this declotted outpatient. 2. History of hypotension. This is a chronic issue. We have increased his midodrine to 10 mg three times a day. Hopefully this will help with his hypotension. 3. Atrial fibrillation. We will continue with his digoxin. His digoxin levels were checked this morning, which were appropriate at 1.5. He is slightly rate controlled, tachycardic with the highs at 110s. He is not a candidate for beta ross due to his chronic hypotension, and he is not a candidate for anticoagulation because of his history of recurrent rectal bleeds. They will continue to monitor per the primary team. 4. History of heparin-induced thrombocytopenia. His dialysis is heparin free, and his platelet levels have been adequate. 5. Anemia, related to renal failure, iron deficiency, and inflammatory, as well as history of rectal bleeds. He will continue with Aranesp with his dialysis. Hemoglobin is currently stable. 6. Decompensated congestive heart failure. He is hypervolemic. Hopefully today we can remove some extra fluids in dialysis. We will continue with his fluid restriction and continue to monitor him daily. My faculty preceptor for this patient encounter was physically present during the encounter and was fully available. All aspects of the patient interview, examination, medical decision making process, and medical care plan development were reviewed and approved by the faculty preceptor. The faculty preceptor is aware and concurs with the plan as stated in the body of this note and will attest to such by his/her co-signature. MARIA ALEJANDRA
--- NOTE | 2018-10-27 20:35 | ECGEPIP ---
Stationary ECG Study [facility] Test Date: 2018-10-26 Pat Name: CATHI SEBASTIAN Department: Room: [place] [address] Gender: M Bid Clerk: : [id number] Requested By: THANIA OHARA Order Number: [id number] Reading MD: Yessica Car Measurements Intervals [place] Rate: 89 P: 250 AR: 164 QRS: -68 QRSD: 122 T: 128 QT: 373 QTc: 456 Interpretive Statements SINUS RHYTHM WITH OCCASIONAL VENTRICULAR PREMATURE COMPLEXES POOR R WAVE PROGRESSION INFERIOR MYOCARDIAL INFARCTION, PROBABLY OLD SINCE 10/17/18 SINUS RHYTHM IS MORE OBVIOUS TODAY Electronically Signed On 10-27-2018 20:34:52 EST by Yessica Car
[2018-10-27 22:00] VITALS: BP 86/38
[2018-10-28 06:00] VITALS: BP 85/48
[2018-10-28] MEDS: POLYVINYL ALCOHOL OPHTH SOLN 15 ML(LIQUITEARS) OU PRN ×2 (06:04→18:10)
[2018-10-28 06:05] LABS: BASO % 0.4 % (0.0-1.0); EOS # 0.1 10^3/uL (0.0-0.50); HEMATOCRIT 35.6 % (42.0-52.0); HEMOGLOBIN 9.8 g/dl (13.5-17.5); LYMPH # 0.9 10^3/uL (1.5-4.5); LYMPH % 12.9 % (24.0-44.0); MEAN CORPUSCULAR HEMOGLOBIN 23.6 pg (27.0-33.0); MEAN CORPUSCULAR HGB CONC 27.5 g/dl (32.0-36.5); MEAN CORPUSCULAR VOLUME 85.6 fl (80.0-96.0); MONO # 0.8 10^3/uL (0.0-0.8); NEUTROPHILS # 5.1 10^3/uL (1.8-7.7); NEUTROPHILS % 74.3 % (36.0-66.0); PLATELET COUNT, AUTOMATED 86 10^3/uL (150-450); RED BLOOD COUNT 4.16 10^6/uL (4.30-6.10); WHITE BLOOD COUNT 6.8 10^3/uL (4.0-10.0)
[2018-10-28] MEDS: MIDODRINE 5 MG TAB PO SCH ×3 (06:05→15:57)
[2018-10-28] MEDS: ASPIRIN 81 MG ENTERIC TAB PO SCH (06:05)
[2018-10-28] MEDS: SENNA 8.6 MG TAB (SENOKOT) PO SCH (06:05)
[2018-10-28] MEDS: DOCUSATE SODIUM 100 MG CAP PO SCH ×2 (06:05→20:50)
[2018-10-28] MEDS: OMEPRAZOLE 20 MG CAP PO SCH (06:05)
[2018-10-28] MEDS: ATORVASTATIN 20 MG TAB PO SCH (06:05)
[2018-10-28] MEDS: GABAPENTIN 300 MG CAP PO SCH ×3 (06:06→20:50)
[2018-10-28 06:27] LABS: ALBUMIN 2.2 GM/DL (3.2-5.2); BILIRUBIN,TOTAL 0.8 MG/DL (0.2-1.0); C REACTIVE PROTEIN QUANTITATIV 4.84 MG/DL (0.00-0.30); CALCIUM LEVEL 8.3 MG/DL (8.8-10.2); CREATININE FOR GFR 5.51 MG/DL (0.70-1.30); GLOMERULAR FILTRATION RATE 13.3 (>42); MAGNESIUM LEVEL 2.1 MG/DL (1.8-2.4); POTASSIUM SERUM 5.7 MEQ/L (3.5-5.1); TOTAL PROTEIN 7.3 GM/DL (6.4-8.2)
[2018-10-28] MEDS: HumaLOG INSULIN (NovoLOG) PER UNIT SC SCH ×4 (07:30→20:50)
[2018-10-28] MEDS: IPRATROPIUM 0.5MG/ALBUTEROL 2.5MG INH SOL UD 3ML (DUONEB)(J7620) NEB SCH ×2 (07:33→15:08)
--- NOTE | 2018-10-28 11:07 | IPNPDOC ---
Text Note Date of Service The patient was seen on 10/28/18. NOTE Subjective: Patient is a 68-year-old -[place] male with a past medical history of PVD w/ BL BKA, DM2, ESRD on HD (MWF), Hypotension (on Midodrine), Prostate CA s/p surgery / RT, AOCD, Chronic troponin elevation, Diastolic CHF, Severe pulmonary HTN, Aortic stenosis, A. fib, Diverticulosis, Hemorrhoids, Hx of Hematochezia 2/2 radiation proctitis s/p Argon Laser coagulation (2016), Rectal ulcers s/p cauterization (05/2018) who presented to the ER with hypotension. In the ER patient was found to have a developing pneumonia. He was started on empiric therapy and admitted to the hospitalist service. Patient was seen and examined at the bedside. Currently he denies any N/V, abdominal pain, C/D or any CP, SOB or palpitations. Objective: Vitals (See below) General: Lying in bed, no acute distress, comfortable, Awake / Alert HEENT: NC, AT CVS: RRR, +S1S2 Lungs: Fair air entry b/l, no appreciable wheezing / rhonchi / rales Abdomen: Soft, ND, no apparent tenderness Extremities: BL BKA, trace edema at stump b/l Assessment and plan: Decompensated Diastolic CHF - Physical exam shows improvement in fluid overload - c/w HD to remove additional fluids as tolerated - c/w Strict ins/outs, Daily weights s/p Healthcare associate pneumonia - Clinically has had improvement in symptoms - Hemodynamically stable and afebrile - CT chest 10/17: 1. Small bilateral pleural effusions, new on the left and smaller on the right than on September 22, 2018. There is some loculated air in the right pleural space post recent instrumentation. 2. Patchy bilateral opacities mostly in the lower lobes and the right upper lobe. 3. Stable mediastinal adenopathy. 4. Left-sided Vfluee-C-Iawx catheter tip currently in the proximal azygos venous arch. 5. Stable splenomegaly. 6. Cholelithiasis and multiple renal cysts and bilateral renal cortical atrophy. - CRP trending down - s/p Meropenem & Vancomycin (Completed 7 day course) Elevated Troponin Level - Remains asymptomatic; no chest pain / Palpitations - Troponin noted to be 1.5 ion admission; has improved - EKG with non-specific changes - Dr. Renner (Cardiology) was contacted in the ER; likely demand ischemia from hypotension from possible underlying infection; advised no indication for transfer and cardiac cath at this time - c/w Medical management; ASA, Statin Hypotension - BP improved - Midodrine dose adjusted Right Index finger with eschar formation - Dr. Langston on consult; no indication for surgical intervention at this time s/p Lactic Acidosis Paroxysmal A fib - c/w Digoxin for rate / rhythm control - Digoxin level noted - Not on full anticoagulation 2/2 GI bleed - c/w ASA ESRD on HD (MWF) - Nephrology on consult Severe pulmonary hypertension with chronic right heart failure - Fluid optimization through HD as per Nephro Moderate Calcific aortic stenosis with moderate aortic regurgitation PVD with BL BKA - c/w ASA and Atorvastatin DM2 - HgbA1c 5.6 - c/w ISS Sacral decubitus ulcer (Stage 3) Hx of Rectal Ulcers 2/2 Radiation proctitis Hx of Prostate Ca DVT prophylaxis - Hx of SELAM in 2016 - Arixtra SC / Prophylactic AC contraindicated 2/2 bleeding episode on prior admission - Unable to have SCDs/ ESPERANZA - Risks / Benefits discussed with Patient and ; aware of risks 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: - 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 Disposition: - Anticipate discharge when euvolemic; possible tomorrow VS,Fishbone, I+O VS, Fishbone, I+O Laboratory Tests 10/28/18 05:32 Red Blood Count 4.16 L, Mean Corpuscular Volume 85.6, Mean Corpuscular Hemoglobin 23.6 L, Mean Corpuscular Hemoglobin Concent 27.5 L, Red Cell Distrib ution Width 21.3 H, Neutrophils (%) (Auto) 74.3 H, Lymphocytes (%) (Auto) 12.9 L, Monocytes (%) (Auto) 11.0 H, Eosinophils (%) (Auto) 1.0, Basophils (%) (Auto) 0.4, Neutrophils # (Auto) 5.1, Lymphocytes # (Auto) 0.9 L, Monocytes # (Auto) 0.8, Eosinophils # (Auto) 0.1, Basophils # (Auto) 0.0, Calcium Level 8.3 L, Aspartate Amino Transf (AST/SGOT) 70 H, Alanine Aminotransferase (ALT/SGPT) 30, Alkaline Phosphatase 202 H, Total Bilirubin 0.8, Total Protein 7.3, Albumin 2.2 L Vital Signs Date Time Temp Pulse Resp B/P (MAP) Pulse Ox O2 Delivery O2 Flow Rate FiO2 10/28/18 06:00 97.0 87 20 85/48 (60) 92 Room Air 10/27/18 14:00 1.0 I&O- Last 24 Hours up to 6 AM 10/28/18 06:00 Intake Total 390 ml Output Total 1500 ml Balance -1110 ml NGHIA EVERETT MD Oct 28, 2018 11:07
[2018-10-28] MEDS ORDERED: HEPARIN 1,000 UNITS/ML 10ML VIAL (FOR RADIOLOGY& DIALYSIS ONLY) XX ONE (13:15)
[2018-10-28 14:00] VITALS: BP 100/52
[2018-10-28] MEDS: diphenhydrAMINE 25 MG CAP PO PRN (18:10)
[2018-10-28 22:00] VITALS: BP 115/62
[2018-10-29 05:58] LABS: BASO % 0.3 % (0.0-1.0); EOS # 0.1 10^3/uL (0.0-0.50); HEMATOCRIT 34.6 % (42.0-52.0); HEMOGLOBIN 9.7 g/dl (13.5-17.5); LYMPH # 0.8 10^3/uL (1.5-4.5); LYMPH % 12.2 % (24.0-44.0); MEAN CORPUSCULAR HEMOGLOBIN 23.8 pg (27.0-33.0); MEAN CORPUSCULAR VOLUME 84.8 fl (80.0-96.0); MONO # 0.6 10^3/uL (0.0-0.8); MONO % 10.3 % (0.0-5.0); NEUTROPHILS # 4.7 10^3/uL (1.8-7.7); NEUTROPHILS % 75.6 % (36.0-66.0); RED BLOOD COUNT 4.08 10^6/uL (4.30-6.10); WHITE BLOOD COUNT 6.2 10^3/uL (4.0-10.0)
[2018-10-29 06:00] VITALS: BP 104/60
[2018-10-29 06:00] LABS: PLATELET COUNT, AUTOMATED 76 10^3/uL (150-450)
[2018-10-29 06:19] LABS: ALBUMIN 2.2 GM/DL (3.2-5.2); BILIRUBIN,TOTAL 0.6 MG/DL (0.2-1.0); C REACTIVE PROTEIN QUANTITATIV 4.68 MG/DL (0.00-0.30); CALCIUM LEVEL 8.3 MG/DL (8.8-10.2); CREATININE FOR GFR 4.49 MG/DL (0.70-1.30); GLOMERULAR FILTRATION RATE 16.8 (>42); POTASSIUM SERUM 5.3 MEQ/L (3.5-5.1); TOTAL PROTEIN 7.1 GM/DL (6.4-8.2)
[2018-10-29] MEDS: HumaLOG INSULIN (NovoLOG) PER UNIT SC SCH ×4 (07:30→21:00)
[2018-10-29] MEDS: IPRATROPIUM 0.5MG/ALBUTEROL 2.5MG INH SOL UD 3ML (DUONEB)(J7620) NEB SCH ×4 (07:51→23:51)
[2018-10-29] MEDS: SENNA 8.6 MG TAB (SENOKOT) PO SCH (08:38)
[2018-10-29] MEDS: ATORVASTATIN 20 MG TAB PO SCH (08:38)
[2018-10-29] MEDS: MIDODRINE 5 MG TAB PO SCH ×3 (08:38→17:38)
[2018-10-29] MEDS: OMEPRAZOLE 20 MG CAP PO SCH (08:38)
[2018-10-29] MEDS: DOCUSATE SODIUM 100 MG CAP PO SCH ×2 (08:39→20:15)
[2018-10-29] MEDS: ASPIRIN 81 MG ENTERIC TAB PO SCH (08:39)
[2018-10-29] MEDS: GABAPENTIN 300 MG CAP PO SCH ×3 (08:39→20:15)
[2018-10-29] MEDS: DIGOXIN 0.125 MG TAB PO SCH (08:40)
[2018-10-29] MEDS: diphenhydrAMINE 25 MG CAP PO PRN (11:21)
[2018-10-29] MEDS: POLYVINYL ALCOHOL OPHTH SOLN 15 ML(LIQUITEARS) OU PRN (11:21)
--- NOTE | 2018-10-29 12:43 | IPN ---
DATE: 10/28/2018 SUBJECTIVE: Mr. Fernandez was seen and examined this morning in dialysis. He states that he is doing relatively well today. He has no complaints. He said that he had slept very really well the night before. His blood pressure overnight has been relatively stable. His blood pressure mean arterial pressure (MAP) has been between 48 to 60. Today he will get 1.5 liters removed in dialysis. PHYSICAL EXAMINATION: VITAL SIGNS: Temperature 97.0, pulse 86, irregular. Respiratory rate 20, blood pressure 85/48 (60). Pulse ox 92% on room air. GENERAL: This is a very pleasant 68-year-old male who does not appear in any acute distress. Appropriately answering questions. He is comfortable, awake, alert and interactive. CARDIAC: Heart sounds are irregularly irregular, but rate controlled in the 80s. LUNGS: Diminished breath sounds bilaterally due to lack of effort. ABDOMEN: Soft, nontender. Positive bowel sounds in all four quadrants. Obese abdomen with no dependent edema. EXTREMITIES: Bilateral below the knee amputation. There is a edema in the stump, improving all the way up to above the knee. He has a left AV fistula, displayed patent with a clot in the proximal end. There is a tunneled PermaCath on the left chest wall and there is a dressing over his right index finger. LABORATORIES WBC 6.8, hemoglobin 9.8, hematocrit 35.6, platelets 86. Chemistry: Sodium 135, potassium 5.7, but it was a hemolyzed sample. Chloride 99, carbon dioxide 25, BUN 24, creatinine of 5.51. GFR 13.3, fasting glucose 100, calcium 8.3, magnesium 2.1. MEDICATIONS: Reviewed by me and Dr. Jean-Baptiste and there is no changes made since yesterday. PROBLEMS: 1. End-stage renal disease. On hemodialysis on Wednesday, Wednesday, Wednesday. He is currently getting his normal hemodialysis session today. He has been tolerating his three hemodialysis sessions back to back since Wednesday. He is maintaining a MAP of 48 to 60 since the midodrine has been increased to 10 mg three times a day. His lower extremity pitting edema has improved, but still present. It is not in his dependent area and is up to above his knees. His PermaCath is in use. His AV fistula cannot be used because of the partial thrombosis. He will need to have this declotted outpatient. 2. History of hypotension. This is a chronic issue. He currently is maintaining a MAP of 48 to 60. Will continue with midodrine 10 mg three times a day. He is tolerating it well. 3. Atrial fibrillation. Continue on his digoxin. He is currently rate controlled at 87 this morning. He is not a candidate for beta ross because of his chronic hypotension and he is not a candidate for anticoagulation because of history of recurrent rectal bleeds. 4. History of heparin induced thrombocytopenia. His dialysis is heparin free and his platelets are at adequate level. 5. History of anemia. Related to renal failure, iron deficiency and inflammatory process as well as his history of rectal bleeds. He will continue with Aranesp with dialysis. Hemoglobin is currently stable. No transfusion has been needed since he was admitted. 6. Decompensated congestive heart failure. He is hypervolemic. Volume status is improving. Will continue dialysis. Will continue with his fluid restriction and continue to monitor him daily. Give albumin with HD for further fluid removal. My faculty preceptor for this patient encounter was physically present during the encounter and was fully available. All aspects of the patient interview, examination, medical decision making process, and medical care plan development were reviewed and approved by the faculty preceptor. The faculty preceptor is aware and concurs with the plan as stated in the body of this note and will attest to such by his/her co-signature. MARIA ALEJANDRA
--- NOTE | 2018-10-29 12:55 | IPNPDOC ---
Text Note Date of Service The patient was seen on 10/29/18. NOTE Subjective: Patient is a 68-year-old -[place] male with a past medical history of PVD w/ BL BKA, DM2, ESRD on HD (MWF), Hypotension (on Midodrine), Prostate CA s/p surgery / RT, AOCD, Chronic troponin elevation, Diastolic CHF, Severe pulmonary HTN, Aortic stenosis, A. fib, Diverticulosis, Hemorrhoids, Hx of Hematochezia 2/2 radiation proctitis s/p Argon Laser coagulation (2016), Rectal ulcers s/p cauterization (05/2018) who presented to the ER with hypotension. In the ER patient was found to have a developing pneumonia. He was started on empiric therapy and admitted to the hospitalist service. Patient was seen and examined at the bedside. Patient has no new complaints this morning. He denies any chest pain, shortness of breath, palpitations, nausea, vomiting, abdominal pain, constipation, diarrhea. Objective: Vitals (See below) General: Lying in bed, no acute distress, comfortable, Awake / Alert HEENT: NC, AT CVS: RRR, +S1S2 Lungs: Fair air entry b/l, auscultation. Does not appear to reveal any rhonchi, rales or wheezing Abdomen: Soft, ND, no tenderness is appreciated on palpation Extremities: BL BKA, trace edema still noted at bilateral stumps Assessment and plan: Decompensated Diastolic CHF - Physical exam shows improvement in fluid overload; however, does not appear to be euvolemic at this time - c/w HD to remove additional fluids as tolerated - Planned for additional HD on Wednesday / Wednesday - c/w Strict ins/outs, Daily weights s/p Healthcare associate pneumonia - Clinically has had improvement in symptoms - Hemodynamically stable and afebrile - CT chest 10/17: 1. Small bilateral pleural effusions, new on the left and smaller on the right than on September 22, 2018. There is some loculated air in the right pleural space post recent instrumentation. 2. Patchy bilateral opacities mostly in the lower lobes and the right upper lobe. 3. Stable mediastinal adenopathy. 4. Left-sided Mfrref-G-Vjbe catheter tip currently in the proximal azygos venous arch. 5. Stable splenomegaly. 6. Cholelithiasis and multiple renal cysts and bilateral renal cortical atrophy. - CRP trending down - s/p Meropenem & Vancomycin (Completed 7 day course) Elevated Troponin Level - Remains asymptomatic; no chest pain / Palpitations - Troponin noted to be 1.5 ion admission; has improved - EKG with non-specific changes - Dr. Renner (Cardiology) was contacted in the ER; likely demand ischemia from hypotension from possible underlying infection; advised no indication for tra nsfer and cardiac cath at this time - c/w Medical management; ASA, Statin Hypotension - BP improved - Midodrine dose adjusted Right Index finger with eschar formation - Dr. Langston on consult; no indication for surgical intervention at this time s/p Lactic Acidosis Paroxysmal A fib - c/w Digoxin for rate / rhythm control - Digoxin level noted - Not on full anticoagulation 2/2 GI bleed - c/w ASA ESRD on HD (MWF) - Nephrology on consult Severe pulmonary hypertension with chronic right heart failure - Fluid optimization through HD as per Nephro Moderate Calcific aortic stenosis with moderate aortic regurgitation PVD with BL BKA - c/w ASA and Atorvastatin DM2 - HgbA1c 5.6 - c/w ISS Sacral decubitus ulcer (Stage 3) Hx of Rectal Ulcers 2/2 Radiation proctitis Hx of Prostate Ca DVT prophylaxis - Hx of SELAM in 2016 - Arixtra SC / Prophylactic AC contraindicated 2/2 bleeding episode on prior admission - Unable to have SCDs/ ESPERANZA - Risks / Benefits discussed with Patient and ; aware of risks Prognosis: - Poor Chain Pegger Prognosis Disposition: - Awaiting euvolemia VS,Fishbone, I+O VS, Fishbone, I+O Laboratory Tests 10/29/18 05:16 Red Blood Count 4.08 L, Mean Corpuscular Volume 84.8, Mean Corpuscular Hemoglobin 23.8 L, Mean Corpuscular Hemoglobin Concent 28.0 L, Red Cell Distribution Width 21.0 H, Neutrophils (%) (Auto) 75.6 H, Lymphocytes (%) (Auto) 12.2 L, Monocytes (%) (Auto) 10.3 H, Eosinophils (%) (Auto) 1.0, Basophils (%) (Auto) 0.3, Neutrophils # (Auto) 4.7, Lymphocytes # (Auto) 0.8 L, Monocytes # (Auto) 0.6, Eosinophils # (Auto) 0.1, Basophils # (Auto) 0.0, Calcium Level 8.3 L, Aspartate Amino Transf (AST/SGOT) 54 H, Alanine Aminotransferase (ALT/SGPT) 25, Alkaline Phosphatase 185 H, Total Bilirubin 0.6, Total Protein 7.1, Albumin 2.2 L Vital Signs Date Time Temp Pulse Resp B/P (MAP) Pulse Ox O2 Delivery O2 Flow Rate FiO2 10/29/18 08:40 84 10/29/18 06:00 96.6 15 104/60 (75) 95 Nasal Cannula 1.0 I&O- Last 24 Hours up to 6 AM 10/29/18 05:59 Intake Total 240 ml Output Total 1500 ml Balance -1260 ml NGHIA EVERETT MD Oct 29, 2018 12:54
[2018-10-29 14:00] VITALS: BP 94/52
[2018-10-29] MEDS: ACETAMINOPHEN TAB 650MG DOSE (2X325MG) PO PRN (20:16)
[2018-10-29 22:00] VITALS: BP 121/58
[2018-10-30 06:00] VITALS: BP 108/54
[2018-10-30] MEDS: MIDODRINE 5 MG TAB PO SCH ×3 (06:12→17:37)
[2018-10-30] MEDS: GABAPENTIN 300 MG CAP PO SCH ×3 (06:12→20:06)
[2018-10-30] MEDS: ASPIRIN 81 MG ENTERIC TAB PO SCH (06:12)
[2018-10-30] MEDS: ATORVASTATIN 20 MG TAB PO SCH (06:12)
[2018-10-30] MEDS: OMEPRAZOLE 20 MG CAP PO SCH (06:12)
[2018-10-30] MEDS: DOCUSATE SODIUM 100 MG CAP PO SCH ×2 (06:12→20:06)
[2018-10-30] MEDS: SENNA 8.6 MG TAB (SENOKOT) PO SCH (06:12)
[2018-10-30 06:41] LABS: BASO % 0.3 % (0.0-1.0); EOS # 0.1 10^3/uL (0.0-0.50); EOS % 1.4 % (0.0-3.0); HEMATOCRIT 33.5 % (42.0-52.0); HEMOGLOBIN 9.2 g/dl (13.5-17.5); LYMPH # 0.8 10^3/uL (1.5-4.5); LYMPH % 12.4 % (24.0-44.0); MEAN CORPUSCULAR HEMOGLOBIN 23.5 pg (27.0-33.0); MEAN CORPUSCULAR HGB CONC 27.5 g/dl (32.0-36.5); MEAN CORPUSCULAR VOLUME 85.5 fl (80.0-96.0); MONO # 0.6 10^3/uL (0.0-0.8); MONO % 8.7 % (0.0-5.0); NEUTROPHILS % 76.7 % (36.0-66.0); RED BLOOD COUNT 3.92 10^6/uL (4.30-6.10); WHITE BLOOD COUNT 6.5 10^3/uL (4.0-10.0)
[2018-10-30 06:45] LABS: PLATELET COUNT, AUTOMATED 82 10^3/uL (150-450)
[2018-10-30 07:02] LABS: ALBUMIN 2.2 GM/DL (3.2-5.2); BILIRUBIN,TOTAL 0.7 MG/DL (0.2-1.0); C REACTIVE PROTEIN QUANTITATIV 4.34 MG/DL (0.00-0.30); CALCIUM LEVEL 8.2 MG/DL (8.8-10.2); CREATININE FOR GFR 5.53 MG/DL (0.70-1.30); GLOMERULAR FILTRATION RATE 13.2 (>42); MAGNESIUM LEVEL 1.9 MG/DL (1.8-2.4); POTASSIUM SERUM 5.5 MEQ/L (3.5-5.1); TOTAL PROTEIN 6.9 GM/DL (6.4-8.2)
[2018-10-30] MEDS: HumaLOG INSULIN (NovoLOG) PER UNIT SC SCH ×4 (07:15→20:06)
[2018-10-30] MEDS: IPRATROPIUM 0.5MG/ALBUTEROL 2.5MG INH SOL UD 3ML (DUONEB)(J7620) NEB SCH ×3 (08:00→23:40)
--- NOTE | 2018-10-30 09:40 | IPN ---
DATE OF SERVICE: 10/29/2018 SUBJECTIVE: The patient was seen and examined at the bedside today morning. The patient is afebrile, hemodynamically stable. He was dialyzed yesterday. He tolerated the hemodialysis procedure well. Only 1.5 liters of fluid was removed. The patient still has significant fluid overload. He denies any active complaints at this point. OBJECTIVE: VITAL SIGNS: Temperature is 96.6 degrees Fahrenheit, blood pressure 104/60, pulse is 87, respiratory rate of 15, saturating 95% on nasal cannula at 1 liter. INTAKE AND OUTPUT: Urine output is not recorded. Ultrafiltration with hemodialysis was 1.5 liters. Weight in the bed scale is 96 kg. PHYSICAL EXAMINATION: HEAD AND NECK EXAMINATION: The patient has a squint. Mucous membranes are moist. He has significant facial edema. Neck is supple. Mildly elevated jugular venous distention (JVD). CARDIOVASCULAR: S1, S2, irregularly irregular heart rate. Positive edema of the bilateral lower extremities. RESPIRATORY: Mildly decreased breath sounds at the bases. Otherwise, no rales or rhonchi. ABDOMEN: Soft, obese. Positive bowel sounds. He has abdominal wall edema. MUSCULOSKELETAL: He has bilateral below-knee amputations. There is edema of the stumps and edema of bilateral thighs. CENTRAL NERVOUS SYSTEM: No focal deficit. Power is 5/5 in bilateral upper extremities. AV ACCESS: The patient has a left IJ tunneled hemodialysis catheter. LABORATORY REVIEW: CBC showed a WBC of 6.2, hemoglobin 9.7, platelets are 76. BMP showed sodium 133, potassium 5.3, chloride 100, bicarbonate 28, BUN 20, creatinine is 4.4, calcium is 8.3, magnesium is 2, albumin is 2.2. CURRENT INPATIENT MEDICATIONS: The patient's medications were all reviewed by me. He continues to be on midodrine 10 mg by mouth three times a day. No other change in the medications today as compared with yesterday. ASSESSMENT AND PLAN: 1. End-stage renal disease, on hemodialysis. The patient's regular dialysis days are Wednesday, Wednesday, and Wednesday. Because of the holiday schedule, Wednesday, Wednesday, and Wednesday patient's will be dialyzed tomorrow. He will be dialyzed according to his schedule. I will try to remove at least 3-4 liters of fluid and I will give him midodrine and albumin with dialysis to help with fluid removal. 2. Anasarca. As mentioned above, the patient has significant edema, facial edema, abdominal wall edema and lower extremity edema. Fluid removal has been challenging because of chronic hypotension. Continue midodrine 10 mg three times a day. I have already ordered albumin 25% 25 grams IV to be given with hemodialysis to help with fluid removal. 3. Chronic hypotension. Midodrine has been increased to 10 mg by mouth three times a day. 4. Atrial fibrillation. Heart rate is conted. Continue current dose of digoxin. He is not a candidate for anticoagulation because of recurrent gastrointestinal (GI) bleed. 5. 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 The patient gets heparin free dialysis. 6. Anemia and end-stage renal disease. Hemoglobin is 9.7. Continue current dose of Aranesp 200 mcg IV with hemodialysis. 7. Acute on chronic decompensated systolic congestive heart failure (CHF). The patient is significantly volume overloaded. As mentioned above, he will be dialyzed and if needed he will get another session for ultrafiltration the day after tomorrow. He is clinically not stable to be discharged a this point.
--- NOTE | 2018-10-30 12:35 | IPNPDOC ---
Text Note Date of Service The patient was seen on 10/30/18. NOTE Subjective: Patient is a 68-year-old -Japanese male with a past medical history of PVD w/ BL BKA, DM2, ESRD on HD (MWF), Hypotension (on Midodrine), Prostate CA s/p surgery / RT, AOCD, Chronic troponin elevation, Diastolic CHF, Severe pulmonary HTN, Aortic stenosis, A. fib, Diverticulosis, Hemorrhoids, Hx of Hematochezia 2/2 radiation proctitis s/p Argon Laser coagulation (2016), Rectal ulcers s/p cauterization (05/2018) who presented to the ER with hypotension. In the ER patient was found to have a developing pneumonia. He was started on empiric therapy and admitted to the hospitalist service. Patient was seen and examined at the bedside. No new complaints. Objective: Vitals (See below) General: Lying in bed, no acute distress, comfortable, Awake / Alert HEENT: NC, AT CVS: RRR, +S1S2 Lungs: Fair air entry b/l, no significant wheezing / rhonchi / rales Abdomen: Soft, ND, no tenderness Extremities: BL BKA, edema at bilateral stumps still noted Assessment and plan: Decompensated Diastolic CHF - Physical exam shows improvement in fluid overload; however, does not appear to be euvolemic at this time - c/w HD to remove additional fluids as tolerated - will be continuing with additional sessions - c/w Strict ins/outs, Daily weights s/p Healthcare associate pneumonia - Clinically has had improvement in symptoms - Hemodynamically stable and afebrile - CT chest 10/17: 1. Small bilateral pleural effusions, new on the left and smaller on the right than on September 22, 2018. There is some loculated air in the right pleural space post recent instrumentation. 2. Patchy bilateral opacities mostly in the lower lobes and the right upper lobe. 3. Stable mediastinal adenopathy. 4. Left-sided Czpyff-D-Jqge catheter tip currently in the proximal azygos venous arch. 5. Stable splenomegaly. 6. Cholelithiasis and multiple renal cysts and bilateral renal cortical atrophy. - CRP trending down - s/p Meropenem & Vancomycin (Completed 7 day course) Elevated Troponin Level - Remains asymptomatic; no chest pain / Palpitations - Troponin noted to be 1.5 ion admission; has improved - EKG with non-specific changes - Dr. Renner (Cardiology) was contacted in the ER; likely demand ischemia from hypotension from possible underlying infection; advised no indication for transfer and cardiac cath at this time - c/w Medical management; ASA, Statin Hypotension - BP improved - Midodrine dose adjusted Right Index finger with eschar formation - Dr. Langston on consult; no indication for surgical intervention at this time s/p Lactic Acidosis Paroxysmal A fib - c/w Digoxin for rate / rhythm control - Digoxin level noted - Not on full anticoagulation 2/2 GI bleed - c/w ASA ESRD on HD (MWF) - Nephrology on consult Severe pulmonary hypertension with chronic right heart failure - Fluid optimization through HD as per Nephro Moderate Calcific aortic stenosis with moderate aortic regurgitation PVD with BL BKA - c/w ASA and Atorvastatin DM2 - HgbA1c 5.6 - c/w ISS Sacral decubitus ulcer (Stage 3) Hx of Rectal Ulcers 2/2 Radiation proctitis Hx of Prostate Ca DVT prophylaxis - Hx of SELAM in 2016 - Arixtra SC / Prophylactic AC contraindicated 2/2 bleeding episode on prior admission - Unable to have SCDs/ ESPERANZA - Risks / Benefits discussed with Patient and ; aware of risks Prognosis: - Poor Long-Term Prognosis Disposition: - Awaiting euvolemia VS,Marke, I+O VS, Lcbone, I+O Laboratory Tests 10/30/18 06:11 Red Blood Count 3.92 L, Mean Corpuscular Volume 85.5, Mean Corpuscular Hemoglobin 23.5 L, Mean Corpuscular Hemoglobin Concent 27.5 L, Red Cell Distribution Width 21.2 H, Neutrophils (%) (Auto) 76.7 H, Lymphocytes (%) (Auto) 12.4 L, Monocytes (%) (Auto) 8.7 H, Eosinophils (%) (Auto) 1.4, Basophils (%) (Auto) 0.3, Neutrophils # (Auto) 5.0, Lymphocytes # (Auto) 0.8 L, Monocytes # (Auto) 0.6, Eosinophils # (Auto) 0.1, Basophils # (Auto) 0.0, Calcium Level 8.2 L, Aspartate Amino Transf (AST/SGOT) 42 H, Alanine Aminotransferase (ALT/SGPT) 20, Alkaline Phosphatase 169 H, Total Bilirubin 0.7, Total Protein 6.9, Albumin 2.2 L Vital Signs Date Time Temp Pulse Resp B/P (MAP) Pulse Ox O2 Delivery O2 Flow Rate FiO2 10/30/18 06:00 97.3 81 18 108/54 (72) 95 Room Air 10/29/18 06:00 1.0 I&O- Last 24 Hours up to 6 AM 10/30/18 06:00 Intake Total 780 ml Output Total 0 ml Balance 780 ml NGHIA EVERETT MD Oct 30, 2018 12:35
[2018-10-30 14:00] VITALS: BP 88/52
[2018-10-30] MEDS ORDERED: HEPARIN 1,000 UNITS/ML 10ML VIAL (FOR RADIOLOGY& DIALYSIS ONLY) IV ONE (14:15)
[2018-10-30 18:00] VITALS: BP 95/53
[2018-10-30 22:00] VITALS: BP 97/53
[2018-10-31 06:00] VITALS: BP 84/48
[2018-10-31] MEDS: DOCUSATE SODIUM 100 MG CAP PO SCH ×2 (06:03→20:24)
[2018-10-31] MEDS: SENNA 8.6 MG TAB (SENOKOT) PO SCH (06:04)
[2018-10-31] MEDS: ASPIRIN 81 MG ENTERIC TAB PO SCH (06:04)
[2018-10-31] MEDS: MIDODRINE 5 MG TAB PO SCH ×3 (06:04→16:11)
[2018-10-31] MEDS: ATORVASTATIN 20 MG TAB PO SCH (06:04)
[2018-10-31] MEDS: OMEPRAZOLE 20 MG CAP PO SCH (06:05)
[2018-10-31] MEDS: GABAPENTIN 300 MG CAP PO SCH ×3 (06:05→20:23)
[2018-10-31] MEDS: DIGOXIN 0.125 MG TAB PO SCH (06:05)
[2018-10-31 06:44] LABS: BASO % 0.3 % (0.0-1.0); EOS # 0.1 10^3/uL (0.0-0.50); EOS % 1.3 % (0.0-3.0); HEMATOCRIT 35.7 % (42.0-52.0); LYMPH # 0.7 10^3/uL (1.5-4.5); LYMPH % 10.7 % (24.0-44.0); MEAN CORPUSCULAR VOLUME 85.6 fl (80.0-96.0); MONO # 0.5 10^3/uL (0.0-0.8); MONO % 7.4 % (0.0-5.0); NEUTROPHILS # 5.4 10^3/uL (1.8-7.7); NEUTROPHILS % 79.7 % (36.0-66.0); RED BLOOD COUNT 4.17 10^6/uL (4.30-6.10); WHITE BLOOD COUNT 6.8 10^3/uL (4.0-10.0)
[2018-10-31 06:46] LABS: PLATELET COUNT, AUTOMATED 87 10^3/uL (150-450)
[2018-10-31 07:21] LABS: ALBUMIN 2.4 GM/DL (3.2-5.2); BILIRUBIN,TOTAL 0.8 MG/DL (0.2-1.0); CALCIUM LEVEL 8.6 MG/DL (8.8-10.2); CREATININE FOR GFR 4.24 MG/DL (0.70-1.30); POTASSIUM SERUM 4.6 MEQ/L (3.5-5.1); TOTAL PROTEIN 7.3 GM/DL (6.4-8.2)
[2018-10-31] MEDS: IPRATROPIUM 0.5MG/ALBUTEROL 2.5MG INH SOL UD 3ML (DUONEB)(J7620) NEB SCH ×2 (08:00→17:00)
[2018-10-31] MEDS: HumaLOG INSULIN (NovoLOG) PER UNIT SC SCH ×4 (08:24→20:24)
--- NOTE | 2018-10-31 08:30 | IPN ---
DATE: 10/30/2018 SUBJECTIVE: Patient was seen and examined at the bedside today morning. Patient is afebrile and hemodynamically stable. He is getting hemodialysis and tolerating it well. He was given 25 grams of IV albumin with dialysis to prevent hypertension and remove more fluid with dialysis today. OBJECTIVE: VITAL SIGNS: Temperature 997.3 degrees Fahrenheit, blood pressure 108/54, pulse 31, respiratory rate 18 saturating 95% on room air. INTAKE AND OUTPUT: Urine output is not recorded. Weight in the bed scale is 95.5 kg. PHYSICAL EXAMINATION: GENERAL: Patient is awake, alert, and oriented times three, laying in bed getting hemodialysis done. HEAD AND NECK EXAM: Mucous membranes are moist. Facial edema was noted. NECK: Supple, mildly elevated JVD. CARDIOVASCULAR: S1, S2 irregularly irregular heart rate. Edema of the bilateral lower extremities. RESPIRATORY: Decreased breath sounds at the bases, otherwise no active rales or rhonchi. ABDOMEN: Soft, obese, positive bowel sounds, abdominal wall edema was noted. MUSCULOSKELETAL: Bilateral below the knee amputations are noted with edema of the stumps in the thighs. SKIN: No focal deficit. Power is 5/5 in all extremities. AV ACCESS: Left IJ tunneled hemodialysis catheter is being used for dialysis. LAB REVIEW: CBC showed a WBC of 6.5, hemoglobin 9.2, platelets 82 and BMP showed a sodium 135, potassium 5.5, chloride 99, bicarbonate 27, BUN 26, creatinine 5.5, albumin 2.2. CURRENT INPATIENT MEDICATIONS: Patient's medications were all reviewed my me. There is no change in the medications today as compared with yesterday. ASSESSMENT AND PLAN: 1. End-stage renal disease on hemodialysis. Patient is being dialyzed today according to his regular Wednesday, Wednesday, Wednesday schedule. I will try to remove a total of 2.5-3 liters of fluid as tolerated by his blood pressure. He was also given a dose of Midodrine in the morning and albumin 25% with dialysis. 2. Anasarca. It is secondary to inability to remove fluid during hemodialysis because of chronic hypertension as mentioned above patient on Midodrine and albumin with dialysis for further fluid removal. 3. Chronic hypotension. Continue Midodrine 10 mg by mouth three times a day. 4. Atrial fibrillation. Heart rate is controlled. Continue current dose of Digoxin. Not a candidate for anticoagulation. 5. History of Heparin induce thrombocytopenia. Platelet count is in 80,000's which is acceptable. He does not get any Heparin at dialysis. 6. Anemia secondary to end-stage renal disease. Continue current dose of Aranesp 200 mcg IV with hemodialysis. 7. Acute on chronic decompensated diastolic congestive heart failure. Patient has significant volume overload. Volume status is being optimized with hemodialysis. Continue fluid removal today if needed. Patient will get another extra session of ultrafiltration tomorrow morning as well. MTDD
[2018-10-31] MEDS ORDERED: HEPARIN 1,000 UNITS/ML 10ML VIAL (FOR RADIOLOGY& DIALYSIS ONLY) XX ONE (11:00)
--- NOTE | 2018-10-31 11:21 | IPNPDOC ---
Text Note Date of Service The patient was seen on 10/31/18. NOTE Subjective: Patient is a 68-year-old -Niuean male with a past medical history of PVD w/ BL BKA, DM2, ESRD on HD (MWF), Hypotension (on Midodrine), Prostate CA s/p surgery / RT, AOCD, Chronic troponin elevation, Diastolic CHF, Severe pulmonary HTN, Aortic stenosis, A. fib, Diverticulosis, Hemorrhoids, Hx of Hematochezia 2/2 radiation proctitis s/p Argon Laser coagulation (2016), Rectal ulcers s/p cauterization (05/2018) who presented to the ER with hypotension. In the ER patient was found to have a developing pneumonia. He was started on empiric therapy and admitted to the hospitalist service. Patient was seen and examined at the bedside. Currently patient has no new complaints. . He denies chest pain, shortness of breath or palpitations. Denies constipation, diarrhea or abdominal pain. Objective: Vitals (See below) General: Lying in bed, no acute distress, comfortable, Awake / Alert HEENT: NC, AT CVS: RRR, +S1S2 Lungs: Fair air entry b/l, auscultations without any evidence of wheezing, rhonchi or rales Abdomen: Soft, without evidence of distention or tenderness Extremities: BL BKA, lateral stumps appear to have resolution of edema Assessment and plan: Decompensated Diastolic CHF - Physical exam shows improvement in fluid overload; however, does not appear to be euvolemic at this time - c/w HD to remove additional fluids as tolerated - will be continuing with additional session today - c/w Strict ins/outs, Daily weights - And spit discharge tomorrow morning s/p Healthcare associate pneumonia - Clinically has had improvement in symptoms - Hemodynamically stable and afebrile - CT chest 10/17: 1. Small bilateral pleural effusions, new on the left and smaller on the right than on September 22, 2018. There is some loculated air in the right pleural space post recent instrumentation. 2. Patchy bilateral opacities mostly in the lower lobes and the right upper lobe. 3. Stable mediastinal adenopathy. 4. Left-sided Nbminq-F-Fljg catheter tip currently in the proximal azygos venous arch. 5. Stable splenomegaly. 6. Cholelithiasis and multiple renal cysts and bilateral renal cortical atrophy. - No leukocytosis; CRP stable - s/p Meropenem & Vancomycin (Completed 7 day course) Elevated Troponin Level - Remains asymptomatic; no chest pain / Palpitations - Troponin noted to be 1.5 ion admission; has improved - EKG with non-specific changes - Dr. Renner (Cardiology) was contacted in the ER; likely demand ischemia from hypotension from possible underlying infection; advised no indication for transfer and cardiac cath at this time - c/w Medical management; ASA, Statin Hypotension - BP improved - Midodrine dose adjusted Right Index finger with eschar formation - Dr. Langston on consult; no indication for surgical intervention at this time s/p Lactic Acidosis Paroxysmal A fib - c/w Digoxin for rate / rhythm control - Digoxin level noted - Not on full anticoagulation 2/2 GI bleed - c/w ASA ESRD on HD (MWF) - Nephrology on consult Severe pulmonary hypertension with chronic right heart failure - Fluid optimization through HD as per Nephro Moderate Calcific aortic stenosis with moderate aortic regurgitation PVD with BL BKA - c/w ASA and Atorvastatin DM2 - HgbA1c 5.6 - c/w ISS Sacral decubitus ulcer (Stage 3) Hx of Rectal Ulcers 2/2 Radiation proctitis Hx of Prostate Ca DVT prophylaxis - Hx of SELAM in 2016 - Arixtra SC / Prophylactic AC contraindicated 2/2 bleeding episode on prior admission - Unable to have SCDs/ ESPERANZA - Risks / Benefits discussed with Patient and ; aware of risks Prognosis: - Poor Senior Living Prognosis Disposition: - Awaiting euvolemia VS,Fishbone, I+O VS, Fishbone, I+O Laboratory Tests 10/31/18 06:04 Red Blood Count 4.17 L, Mean Corpuscular Volume 85.6, Mean Corpuscular Hemoglobin 24.0 L, Mean Corpuscular Hemoglobin Concent 28.0 L, Red Cell Distribution Width 21.5 H, Neutrophils (%) (Auto) 79.7 H, Lymphocytes (%) (Auto) 10.7 L, Monocytes (%) (Auto) 7.4 H, Eosinophils (%) (Auto) 1.3, Basophils (%) (Auto) 0.3, Neutrophils # (Auto) 5.4, Lymphocytes # (Auto) 0.7 L, Monocytes # (Auto) 0.5, Eosinophils # (Auto) 0.1, Basophils # (Auto) 0.0, Calcium Level 8.6 L, Aspartate Amino Transf (AST/SGOT) 33, Alanine Aminotransferase (ALT/SGPT) 18, Alkaline Phosphatase 173 H, Total Bilirubin 0.8, Total Protein 7.3, Albumin 2.4 L Vital Signs Date Time Temp Pulse Resp B/P (MAP) Pulse Ox O2 Delivery O2 Flow Rate FiO2 10/31/18 06:05 85 10/31/18 06:00 97.8 18 84/48 (60) 94 Nasal Cannula 2.0 I&O- Last 24 Hours up to 6 AM 10/31/18 06:00 Intake Total 560 ml Output Total 2500 ml Balance -1940 ml NGHIA EVERETT MD Oct 31, 2018 11:21
[2018-10-31 14:00] VITALS: BP 115/51
[2018-10-31 22:00] VITALS: BP 95/48
[2018-11-01 05:52] LABS: BASO % 0.6 % (0.0-1.0); EOS # 0.1 10^3/uL (0.0-0.50); EOS % 1.7 % (0.0-3.0); HEMATOCRIT 34.1 % (42.0-52.0); HEMOGLOBIN 9.4 g/dl (13.5-17.5); LYMPH # 0.8 10^3/uL (1.5-4.5); LYMPH % 12.3 % (24.0-44.0); MEAN CORPUSCULAR HEMOGLOBIN 23.4 pg (27.0-33.0); MEAN CORPUSCULAR HGB CONC 27.6 g/dl (32.0-36.5); MONO # 0.5 10^3/uL (0.0-0.8); MONO % 7.8 % (0.0-5.0); RED BLOOD COUNT 4.01 10^6/uL (4.30-6.10); WHITE BLOOD COUNT 6.4 10^3/uL (4.0-10.0)
[2018-11-01 05:54] LABS: PLATELET COUNT, AUTOMATED 80 10^3/uL (150-450)
[2018-11-01 06:00] VITALS: BP 92/48
[2018-11-01 06:17] LABS: ALBUMIN 2.6 GM/DL (3.2-5.2); BILIRUBIN,TOTAL 0.8 MG/DL (0.2-1.0); C REACTIVE PROTEIN QUANTITATIV 4.99 MG/DL (0.00-0.30); CALCIUM LEVEL 8.6 MG/DL (8.8-10.2); CREATININE FOR GFR 5.28 MG/DL (0.70-1.30); POTASSIUM SERUM 4.6 MEQ/L (3.5-5.1); TOTAL PROTEIN 7.3 GM/DL (6.4-8.2)
[2018-11-01] MEDS: HumaLOG INSULIN (NovoLOG) PER UNIT SC SCH (07:19)
[2018-11-01] MEDS: IPRATROPIUM 0.5MG/ALBUTEROL 2.5MG INH SOL UD 3ML (DUONEB)(J7620) NEB SCH ×2 (07:52)
[2018-11-01] MEDS ORDERED: MIDO5TA PO (08:32)
[2018-11-01] MEDS: MIDODRINE 5 MG TAB PO SCH (08:42)
[2018-11-01] MEDS: POLYVINYL ALCOHOL OPHTH SOLN 15 ML(LIQUITEARS) OU PRN (08:42)
[2018-11-01] MEDS: ATORVASTATIN 20 MG TAB PO SCH (08:42)
[2018-11-01] MEDS: DOCUSATE SODIUM 100 MG CAP PO SCH (08:43)
[2018-11-01] MEDS: ASPIRIN 81 MG ENTERIC TAB PO SCH (08:43)
[2018-11-01] MEDS: OMEPRAZOLE 20 MG CAP PO SCH (08:43)
[2018-11-01] MEDS: SENNA 8.6 MG TAB (SENOKOT) PO SCH (08:43)
[2018-11-01] MEDS: GABAPENTIN 300 MG CAP PO SCH (08:43)
--- NOTE | 2018-11-01 10:24 | DS.PDOC ---
Discharge Summary General Date of Admission Oct 17, 2018 at 11:59 Date of Discharge 11/01/2018 Discharge Summary PROCEDURES PERFORMED DURING STAY: [None]. ADMITTING DIAGNOSES / DISCHARGE DIAGNOSES: Decompensated Diastolic CHF s/p Healthcare associate pneumonia Elevated Troponin Level Right Index finger with eschar formation s/p Lactic Acidosis Paroxysmal A fib ESRD on HD (MWF) Severe pulmonary hypertension with chronic right heart failure Moderate Calcific aortic stenosis with moderate aortic regurgitation PVD with BL BKA DM2 Sacral decubitus ulcer (Stage 3) Hx of Rectal Ulcers 2/2 Radiation proctitis Hx of Prostate Ca DVT prophylaxis COMPLICATIONS/CHIEF COMPLAINT: Hypotension. HISTORY OF PRESENT ILLNESS: Patient is a 68-year-old -I[place]ian male with a past medical history of PVD w/ BL BKA, DM2, ESRD on HD (MWF), Hypotension (on Midodrine), Prostate CA s/p surgery / RT, AOCD, Chronic troponin elevation, Diastolic CHF, Severe pulmonary HTN, Aortic stenosis, A. fib, Diverticulosis, Hemorrhoids, Hx of Hematochezia 2/2 radiation proctitis s/p Argon Laser coagulation (2016), Rectal ulcers s/p cauterization (05/2018) who presented to the ER with hypotension. In the ER patient was found to have a developing pneumonia. He was started on empiric therapy and admitted to the hospitalist service. HOSPITAL COURSE: Decompensated Diastolic CHF - Physical exam with improvement in fluid overload - Has received several additional sessions of HD to remove fluid - c/w Strict ins/outs, Daily weights - Will continue with dialysis as an outpatient; has been cleared for outpatient follow-up by nephrology s/p Healthcare associate pneumonia - Clinically has had improvement in symptoms - Hemodynamically stable and afebrile - CT chest 10/17: 1. Small bilateral pleural effusions, new on the left and smaller on the right than on September 22, 2018. There is some loculated air in the right pleural space post recent instrumentation. 2. Patchy bilateral opacities mostly in the lower lobes and the right upper lobe. 3. Stable mediastinal adenopathy. 4. Left-sided Mrgskp-X-Bulv catheter tip currently in the proximal azygos venous arch. 5. Stable splenomegaly. 6. Cholelithiasis and multiple renal cysts and bilateral renal cortical atrophy. - No leukocytosis; CRP stable - s/p Meropenem & Vancomycin (Completed 7 day course) Elevated Troponin Level - Remains asymptomatic; no chest pain / Palpitations - Troponin noted to be 1.5 ion admission; has improved - EKG with non-specific changes - Dr. Renner (Cardiology) was contacted in the ER; likely demand ischemia from hypotension from possible underlying infection; advised no indication for transfer and cardiac cath at this time - c/w Medical management; ASA, Statin Hypotension - BP improved - Midodrine dose adjusted Right Index finger with eschar formation - Dr. Langston on consult; no indication for surgical intervention at this time s/p Lactic Acidosis Paroxysmal A fib - c/w Digoxin for rate / rhythm control - Digoxin level noted - Not on full anticoagulation 2/2 GI bleed - c/w ASA ESRD on HD (MWF) - Nephrology on consult Severe pulmonary hypertension with chronic right heart failure - Fluid optimization through HD as per Nephro Moderate Calcific aortic stenosis with moderate aortic regurgitation PVD with BL BKA - c/w ASA and Atorvastatin DM2 - HgbA1c 5.6 - c/w ISS Sacral decubitus ulcer (Stage 3) Hx of Rectal Ulcers 2/2 Radiation proctitis Hx of Prostate Ca DVT prophylaxis - Hx of SELAM in 2016 - Arixtra SC / Prophylactic AC contraindicated 2/2 bleeding episode on prior admission - Unable to have SCDs/ ESPERANZA - Risks / Benefits discussed with Patient and ; aware of risks DISCHARGE MEDICATIONS: Please see below. ALLERGIES: Please see below. PHYSICAL EXAMINATION ON DISCHARGE: Vitals (See below) General: Lying in bed, no acute distress, comfortable, Awake / Alert HEENT: NC, AT CVS: RRR, +S1S2 Lungs: Fair air entry b/l, does not appear to be any rhonchi, rales or wheezing on auscultation Abdomen: Soft, ND, NT Extremities: BL BKA, lateral stumps appear without any evidence of edema LABORATORY DATA: Please see below. ACTIVITY: [As tolerated]. DIET: Fluid restriction of 1200 cc DISCHARGE PLAN: Follow up with Dr. Hoda Vasquez, Dr. Langston, Dr. Abraham within 7 days Remain compliant with treatment plan and medications Return to the ER if you experience any problems DISPOSITION: Home DISCHARGE CONDITION: [Stable]. TIME SPENT ON DISCHARGE: Greater than [35] minutes. Vital Signs/I&Os Vital Signs Date Time Temp Pulse Resp B/P (MAP) Pulse Ox O2 Delivery O2 Flow Rate FiO2 12/25/18 06:00 97.1 80 18 92/48 (63) 100 Nasal Cannula 3.0 I&O- Last 24 Hours up to 6 AM 11/01/18 06:00 Intake Total 300 ml Output Total 2500 ml Balance -2200 ml Laboratory Data Labs 24H Laboratory Tests 2 11/01/18 05:09: Immature Granulocyte % (Auto) 0.6, White Blood Count 6.4, Red Blood Count 4.01L, Hemoglobin 9.4L, Hematocrit 34.1L, Mean Corpuscular Volume 85.0, Mean Corpuscular Hemoglobin 23.4L, Mean Corpuscular Hemoglobin Concent 27.6L, Red Cell Distribution Width 21.5H, Platelet Count 80L, Neutrophils (%) (Auto) 77.0H, Lymphocytes (%) (Auto) 12.3L, Monocytes (%) (Auto) 7.8H, Eosinophils (%) (Auto) 1.7, Basophils (%) (Auto) 0.6, Neutrophils # (Auto) 5.0, Lymphocytes # (Auto) 0.8L, Monocytes # (Auto) 0.5, Eosinophils # (Auto) 0.1, Basophils # (Auto) 0.0, Nucleated Red Blood Cells % (auto) 0.3H, Immature Platelet Fraction 7.9, Anion Gap 7L, Glomerular Filtration Rate 14.0L, Blood Urea Nitrogen 24H, Creatinine 5.28H, Sodium Level 136, Potassium Level 4.6, Chloride Level 101, Carbon Dioxide Level 28, Calcium Level 8.6L, Aspartate Amino Transf (AST/SGOT) 28, Alanine Aminotransferase (ALT/SGPT) 16, Alkaline Phosphatase 161H, Total Bilirubin 0.8, Total Protein 7.3, Albumin 2.6L, Magnesium Level 2.0, C-Reactive Protein, Rambo titative 4.99H, Albumin/Globulin Ratio 0.55L CBC/BMP Laboratory Tests 11/01/18 05:09 Red Blood Count 4.01 L, Mean Corpuscular Volume 85.0, Mean Corpuscular Hemoglobin 23.4 L, Mean Corpuscular Hemoglobin Concent 27.6 L, Red Cell Distribution Width 21.5 H, Neutrophils (%) (Auto) 77.0 H, Lymphocytes (%) (Auto) 12.3 L, Monocytes (%) (Auto) 7.8 H, Eosinophils (%) (Auto) 1.7, Basophils (%) (Auto) 0.6, Neutrophils # (Auto) 5.0, Lymphocytes # (Auto) 0.8 L, Monocytes # (Auto) 0.5, Eosinophils # (Auto) 0.1, Basophils # (Auto) 0.0, Calcium Level 8.6 L, Aspartate Amino Transf (AST/SGOT) 28, Alanine Aminotransferase (ALT/SGPT) 16, Alkaline Phosphatase 161 H, Total Bilirubin 0.8, Total Protein 7.3, Albumin 2.6 L Discharge Medications Scheduled (Digoxin) 125 Mcg Tab, 125 MCG PO Q2D, (Reported) Aspirin (Aspirin 81) 81 Mg Tab, 81 MG PO DAILY, (Reported) Atorvastatin Calcium (Atorvastatin Calcium) 40 Mg Tab, 40 MG PO DAILY, (Reported) Docusate Sodium (Docusate Sodium) 100 Mg Tab, 100 MG PO BID Gabapentin (Gabapentin) 300 Mg Cap, 300 MG PO TID, (Reported) Lactulose (Lactulose) 10 Gm/15 Ml Beckie, 15 ML PO DAILY, (Reported) Midodrine HCl (Midodrine HCl) 5 Mg Tab, 10 MG PO TID 0800 1200 AND 1600 Omeprazole Magnesium (Prilosec Otc) 20 Mg Tab, 20 MG PO DAILY, (Reported) Senna (Senna Laxative) 8.6 Mg Tab, 8.6 MG PO DAILY for constipation Scheduled PRN Fluticasone Propionate (Fluticasone Propionate) 50 Mcg/Act Spr, 2 SPRAYS NARES QHS PRN for CONGESTION, (Reported) Allergies Coded Allergies: Penicillins (Verified Allergy, Mild, RASH, 09/22/18) Heparin (Verified Adverse Reaction, Severe, HIT - 09/2016, 09/22/18) NGHIA EVERETT MD Nov 01, 2018 10:24
--- NOTE | 2018-11-01 14:35 | IPN ---
DATE OF SERVICE: 10/31/2018 SUBJECTIVE: Patient was seen and examined at the bedside today morning during hemodialysis procedure. Patient is getting extra session of ultrafiltration done today because of fluid overload. He is hemodynamically stable. He is getting albumin infusion with hemodialysis to control his blood pressure. OBJECTIVE: VITAL SIGNS: Temperature 97.8 degrees Fahrenheit, blood pressure 115/51, pulse 82, respiratory rate 17, saturating 94% on nasal cannula at 2 liters. INTAKE AND OUTPUT: Urine output is not recorded. Ultrafiltration with hemodialysis done yesterday was 2.5 liters. Weight in the bed scale is 93.7 kg. PHYSICAL EXAMINATION: GENERAL: Patient is awake, alert, and oriented times three, laying in bed getting hemodialysis done, in no acute distress. HEAD AND NECK EXAM: Patient has a squint. Facial edema is better. NECK: Supple, there is no jugular venous distention (JVD). CARDIOVASCULAR: S1, S2 irregularly irregular heart rate. Edema of the bilateral lower extremities noted. RESPIRATORY: Chest is clear to auscultation bilaterally. Bilateral equal air entry. No rales or rhonchi. ABDOMEN: Soft, obese, positive bowel sounds, abdominal wall edema was noted. MUSCULOSKELETAL: Bilateral below the knee amputations with edema of the amputation stumps and bilateral thighs. [employer]: No focal deficit. Power is 5/5 in bilateral upper extremities. AV ACCESS: Left IJ tunneled hemodialysis catheter is being used for dialysis. LAB REVIEW: CBC showed a WBC of 6.8, hemoglobin 10, platelets are 87. BMP showed a sodium 135, potassium 4.6, chloride 100, bicarbonate 25, BUN 17, creatinine 4.2. CURRENT INPATIENT MEDICATIONS: Patient's medications were all reviewed my me. There is no change in the medications today as compared with yesterday. ASSESSMENT AND PLAN: 1. End-stage renal disease on hemodialysis. Patient's regular dialysis days are Wednesday, Wednesday, Wednesday, he was dialyzed according to his schedule, however, because of fluid overload he is getting extra session of ultrafiltration, I will try to remove 2.5 liters of fluid. 2. Chronic hypotension. Patient continues to be on Midodrine 10 mg by mouth three times a day. He is getting albumin 25 gram 25% with hemodialysis sessions to control blood pressure. 3. Anasarca. Volume status is getting better, 2.5 liters of fluid was removed yesterday, further 2.5 liters will be removed today. Continue fluid restriction. 4. Atrial fibrillation. Heart rate is controlled. Continue current dose of Digoxin. 5. Anemia secondary to end-stage renal disease. He continues to be Aranesp 200 mcg IV with hemodialysis. Hemoglobin is within the acceptable range. 6. Acute on chronic diastolic congestive heart failure. Patient's volume status is being optimized with hemodialysis. Patient was advised fluid restriction less than 1200 mL per day. MTDD
--- NOTE | 2018-11-02 16:05 | IPN ---
DATE: 11/01/2018 SUBJECTIVE: Patient was seen and examined at the bedside today morning. He is afebrile, hemodynamically stable. He was dialyzed again yesterday. He got 2.5 liters of fluid removal. Patient is getting ready to be discharged home today. OBJECTIVE: Vital signs: Temperature is 97.1 degrees Fahrenheit, blood pressure 92/48, pulse is 80, respiratory rate of 18, saturating 100% on nasal cannula at 3 liters. Intake and output: Urine output is not recorded. Ultrafiltration with hemodialysis was 2.5 liters. Weight in the bed scale is 82.1 kg, which is not reliable, because that is 10 kg below the weight done yesterday. PHYSICAL EXAMINATION: GENERAL: Patient is awake, alert, oriented times two, lying in bed. No apparent distress. HEAD AND NECK: Facial edema is significantly better. Mucous membranes are moist. Neck is supple. Mildly elevated jugular venous distention (JVD). CARDIOVASCULAR: S1, S2, irregularly irregular heart rate. Trace edema of the bilateral lower extremities. RESPIRATORY: Decreased breath sounds at the bases, otherwise no active rales or rhonchi. ABDOMEN: Soft, obese. Positive bowel sounds. Abdominal wall edema is improving. MUSCULOSKELETAL: Bilateral below-knee amputations with mild edema of the stumps. CENTRAL NERVOUS SYSTEM: Patient follows commands. Moves bilateral upper extremities. ARTERIOVENOUS (AV) ACCESS: Left internal jugular (IJ) tunneled hemodialysis catheter was noted. LABORATORY REVIEW: CBC showed a WBC of 6.4, hemoglobin 9.4, platelets are 80. BMP showed sodium 136, potassium 4.6, chloride 101, bicarbonate 28, BUN 24, creatinine is 5.2, albumin 2.6. CURRENT INPATIENT MEDICATIONS: Patient's medications were all reviewed by me. There is no change in the medications today as compared with yesterday. ASSESSMENT AND PLAN: 1. End-stage renal disease, on hemodialysis. Patient's regular dialysis days are Wednesday, Wednesday, Wednesday. He will be dialyzed as outpatient tomorrow morning. He tolerated the ultrafiltration with albumin yesterday. 2. Anasarca. Patient's volume status is improving. His significant other was explained that patient is not supposed to drink more than 1200 mL of fluid in 24 hours. Further fluid optimization will be done as outpatient. 3. Chronic hypotension. Continue current dose of midodrine 10 mg by mouth three times a day. 4. Chronic atrial fibrillation. Rate is controlled. Continue digoxin. He is not a candidate for anticoagulation. 5. Anemia secondary to end-stage renal disease. Patient was getting Aranesp 200 mcg with hemodialysis over here. Rest of the anemia management will be done as outpatient according to anemia protocol. 6. Chronic diastolic congestive heart failure. Fluid restriction was advised to the patient and explained to his significant other as well. Fluid status will be further optimized as outpatient during hemodialysis. DISPOSITION: It is okay to discharge the patient from nephrology standpoint.
== END 2018-11-01 12:24 | disposition home or self-care (01) | DRG 314 ==
LOC: EDBD 08:15 → M ED 08:15 → M ED INP 11:59 → M ICU 12:55 → M PCU 10-22 20:20 → M MSPAV 10-25 17:11
PROVIDERS: ADMIT Internal Medicine; ATTEND Internal Medicine
PROC: 5A1D70Z Performance of Urinary Filtration, Intermittent, Less than 6 Hours Per Day (ICD-10-PCS; principal; 2018-10-19)
DX: I95.89 Other hypotension (principal); I50.33 Acute on chronic diastolic (congestive) heart failure; J18.9 Pneumonia, unspecified organism; N18.6 End stage renal disease; L89.153 Pressure ulcer of sacral region, stage 3; E87.2 Acidosis; E11.52 Type 2 diabetes mellitus with diabetic peripheral angiopathy with gangrene; E11.22 Type 2 diabetes mellitus with diabetic chronic kidney disease; D63.1 Anemia in chronic kidney disease; I27.20 Pulmonary hypertension, unspecified; I35.0 Nonrheumatic aortic (valve) stenosis; E87.6 Hypokalemia; I50.812 Chronic right heart failure; I48.0 Paroxysmal atrial fibrillation; K57.90 Diverticulosis of intestine, part unspecified, without perforation or abscess without bleeding; Z88.0 Allergy status to penicillin; Z88.8 Allergy status to other drugs, medicaments and biological substances; Z79.82 Long term (current) use of aspirin; Z79.899 Other long term (current) drug therapy; Z87.891 Personal history of nicotine dependence; Z99.2 Dependence on renal dialysis; Z89.511 Acquired absence of right leg below knee; Z89.512 Acquired absence of left leg below knee; Z85.46 Personal history of malignant neoplasm of prostate

== ENCOUNTER 2018-11-06 12:03 | Emergency (ER) | payer MEDICARE, MEDICAID ==
[2018-11-06 12:40] LABS: HEMATOCRIT 36.7 % (42.0-52.0); HEMOGLOBIN 10.4 g/dl (13.5-17.5); MEAN CORPUSCULAR HEMOGLOBIN 23.7 pg (27.0-33.0); MEAN CORPUSCULAR HGB CONC 28.3 g/dl (32.0-36.5); MEAN CORPUSCULAR VOLUME 83.6 fl (80.0-96.0); PLATELET COUNT, AUTOMATED 108 10^3/uL (150-450); RED BLOOD COUNT 4.39 10^6/uL (4.30-6.10)
[2018-11-06 13:34] LABS: CALCIUM LEVEL 8.8 MG/DL (8.8-10.2); CREATININE FOR GFR 6.64 MG/DL (0.70-1.30); GLOMERULAR FILTRATION RATE 10.7 (>42); POTASSIUM SERUM 3.4 MEQ/L (3.5-5.1)
[2018-11-06 15:12] VITALS: BP 99/55
--- NOTE | 2018-11-07 05:09 | ER ---
DATE OF CONSULTATION: 11/06/2018 REQUESTING PHYSICIAN: Dr. Micky Fortune in the emergency room. CONSULTING PHYSICIAN: Dr. Abraham. REASON FOR CONSULTATION: Management of end stage renal disease in this patient who missed hemodialysis. CHIEF COMPLAINT: Patient was brought to the emergency room by EMS for seeing blood in the stools and missing today morning hemodialysis session. HISTORY OF PRESENT ILLNESS: Mr. Nicho Fernandez is a 68-year-old male with past medical history of end stage renal disease on hemodialysis every Wednesday, Wednesday, Wednesday, diabetes mellitus type 2, coronary artery disease, peripheral vascular disease, bilateral lower extremity amputations, multiple comorbidities as mentioned below. He presented to the emergency room via EMS today morning after missing his hemodialysis. He reports that when he was discharged home, he was not told that he was supposed to be dialyzed on Wednesday because of holiday schedule. Of note, also his significant other reported that he had blood in the stools today so they were concerned so they brought him to the emergency room. Patient is afebrile and hemodynamically stable. His hemoglobin is also stable. I saw and evaluated the patient today morning in the emergency room. He denied any active complaints apart from the ones that his significant other reported. PAST MEDICAL HISTORY: End stage renal disease on hemodialysis every Wednesday, Wednesday, Wednesday. Diabetes mellitus type 2. Chronic hypotension. Peripheral vascular disease. History of prostate cancer. History of proctitis and multiple GI bleeds. History of diastolic congestive heart failure. Pulmonary hypertension. Atrial fibrillation. Aortic stenosis. History of pleural effusions. PAST SURGICAL HISTORY: Status post bilateral lower extremity amputations. Status post AV fistula in the left arm status post left IJ tunneled hemodialysis catheter. ALLERGIES: Patient is allergic to HEPARIN and PENICILLIN. FAMILY HISTORY: No significant family history of end stage renal disease requiring hemodialysis. SOCIAL HISTORY: Patient is living at home at this point with his significant other. He denies any smoking or elicit drug abuse. REVIEW OF SYSTEMS: Constitutional: He reports weakness. Eyes: He denies any blurry vision, double vision. ENT: Denies any dysphagia, odynophagia. Cardiovascular: Denies any chest pain or palpitations. Respiratory: Denies any cough or shortness of breath. GI: His significant other reports blood in the stool. Genitourinary: He denies any dysuria or hematuria. Musculoskeletal: He has a history of bilateral lower extremity amputations. Skin: He reports sacral decubitus ulcer. Psych: He denies any depression or anxiety. All other review of system is negative. PHYSICAL EXAMINATION: General: Patient is awake, alert, oriented times three, lying in bed. Vital signs: Temperature is 97.8 degrees Fahrenheit, blood pressure 99/55, pulse is 74, respiratory rate of 18, saturating 93% on nasal cannula at 2 liters. Head and neck exam: Patient has a squint. Mucous membranes are moist. Neck is supple. He has a left IJ tunneled hemodialysis catheter. Cardiovascular: S1, S2. Irregular rate. 1+ edema of the bilateral thighs. Respiratory: Decreased breath sounds at the bases. Otherwise no rales or rhonchi. Abdomen is soft, positive bowel sounds. Positive abdominal wall edema. Musculoskeletal: Bilateral lower extremity amputations were noted. Skin: He has a sacral decubitus ulcer. Genitourinary: Patient is wearing a diaper. There was a small amount of blood mixed with stools in the diaper. TWIST MAKER: No focal deficit. Power is 5/5 in bilateral upper extremities. LAB REVIEW: CBC showed a WBC of 10, hemoglobin 10.4, platelets are 108. BMP showed sodium 146, potassium 3.4, chloride 108, bicarbonate 25, BUN 40, creatinine is 6.6. Calcium is 8.8. HOME MEDICATIONS: Patient's home medications include: - aspirin - atorvastatin - digoxin - Colace - gabapentin - lactulose - midodrine - omeprazole - senna ASSESSMENT: 68-year-old male with past medical history of end stage renal disease on hemodialysis every Wednesday, Wednesday, Wednesday, history of proctitis and rectal ulcerations with multiple history of lower GI bleed in the past, atrial fibrillation not on anticoagulation, admitted this time after missing hemodialysis and seeing blood in the stools. PLAN: 1. End stage renal disease on hemodialysis. Patient was supposed to be dialyzed today per his Wednesday, Wednesday, Wednesday schedule because of upcoming holiday. He missed his hemodialysis. I discussed this with the outpatient dialysis center. They are having difficulty arranging his ride for today. However they agreed to have his ride arranged for tomorrow morning for him to be picked up from home and get him dialyzed [employer] tomorrow. 2. Hematochezia. Patient is not having active lower GI bleed. He has history of rectal ulcerations and multiple history of lower GI bleeds in the past. He is not currently on anticoagulation. He has a little bit of blood mixed with his stools. His hemoglobin is stable. Patient does not need to be admitted for further GI workup at this point. 3. Hypokalemia. Potassium is 3.4 which is optimal at this point. He is a dialysis patient. 4. Chronic hypotension. Continue home dose of midodrine 10 mg by mouth three times a day. 5. Atrial fibrillation. Heart rate is controlled. Continue current dose of digoxin 0.125 mcg by mouth every other day. He is not a candidate for anticoagulation because of history of recurrent GI bleeds in the past. 6. Lower extremity edema. Patient's fluid removal is challenging because of chronic low blood pressures. He gets midodrine with dialysis. Further fluid optimization will be done with hemodialysis. DISPOSITION: Patient does not need to be admitted at this point. I have arranged his hemodialysis to be done tomorrow as outpatient. He can be discharged home. Plan of care was discussed with the ER physician Dr. Micky Fortune. He was advised to come back to ER in case of worsening rectal bleeding. Thank you for involving me in the care of this patient. MARIA ALEJANDRA
== END 2018-11-06 15:33 | disposition home or self-care (01) ==
LOC: M ED 12:03 → EDBD 12:03 → M ED 15:33
DX: N18.6 End stage renal disease (principal); K62.5 Hemorrhage of anus and rectum; K62.6 Ulcer of anus and rectum; E87.6 Hypokalemia; I95.9 Hypotension, unspecified; I48.91 Unspecified atrial fibrillation; R60.0 Localized edema; Z99.2 Dependence on renal dialysis; E11.29 Type 2 diabetes mellitus with other diabetic kidney complication; I12.0 Hypertensive chronic kidney disease with stage 5 chronic kidney disease or end stage renal disease; I73.9 Peripheral vascular disease, unspecified; Z85.46 Personal history of malignant neoplasm of prostate; K62.7 Radiation proctitis; K21.9 Gastro-esophageal reflux disease without esophagitis; Z89.511 Acquired absence of right leg below knee; Z89.512 Acquired absence of left leg below knee; Z88.0 Allergy status to penicillin; Z88.8 Allergy status to other drugs, medicaments and biological substances; Z79.899 Other long term (current) drug therapy; Z79.82 Long term (current) use of aspirin

== ENCOUNTER 2018-11-08 20:24 | Emergency (ER) | payer MEDICAID, MEDICARE ==
[2018-11-08] MEDS ORDERED: DEXTROSE 50% 50 ML SYRINGE ONE (20:25)
[2018-11-08] MEDS ORDERED: EPINEPHrine 1MG/10ML SYRINGE 1.5IN ONE (20:25)
[2018-11-08] MEDS ORDERED: EPINEPHrine 1MG/10ML SYRINGE 1.5IN IV STA ×2 (20:47)
[2018-11-08] MEDS ORDERED: DEXTROSE 50% 50 ML SYRINGE IV STA (20:47)
== END 2018-11-08 22:15 | disposition expired ==
LOC: M ED 20:24
DX: I46.9 Cardiac arrest, cause unspecified (principal); I13.0 Hypertensive heart and chronic kidney disease with heart failure and stage 1 through stage 4 chronic kidney disease, or unspecified chronic kidney disease; N18.6 End stage renal disease; I50.9 Heart failure, unspecified; E11.22 Type 2 diabetes mellitus with diabetic chronic kidney disease; Z99.2 Dependence on renal dialysis; Z87.891 Personal history of nicotine dependence; I27.20 Pulmonary hypertension, unspecified; Z89.512 Acquired absence of left leg below knee; I35.0 Nonrheumatic aortic (valve) stenosis